=== PATIENT | male | born 1955 | race African-American/Black ===

== ENCOUNTER 2017-07-11 06:59 | Inpatient (IN) | payer MEDICARE ==
[2017-07-11 07:37] LABS: #Eosinphils 0.3 thou/uL (0.0-0.7); #Lymphocytes 1.2 thou/uL (1.20-3.40); #Monocytes 0.5 thou/uL (0.11-0.59); #Neutrophils 2.2 thou/uL (1.40-6.50); %Basophils 0.6 % (0.0-1.0); %Eosinophils 6.3 % (0.0-10.0); %Lymphocytes 28.5 % (21.0-51.0); %Monocytes 11.7 % (0.0-10.0); Hematocrit 29.3 % (42.0-52.0); Mean Platelet Volume 7.3 fL (7.4-10.4); Red Blood Cell (RBC) Count 2.58 mill/uL (4.70-6.10); White Blood Cell (WBC) Count 4.2 thou/uL (4.8-10.8)
[2017-07-11 07:52] LABS: Lactic Acid - Sepsis 1.4 mmol/L (0.5-2.2)
[2017-07-11 07:53] LABS: Anisocytosis SLIGHT = 6-15 cells (100X) (0-5/hpf); Macrocytosis MODERATE=16-30 cells (100X) (0-5/hpf); Ovalocytes SLIGHT = 2-5 cells (100X) (0-1/hpf); Polychromasia SLIGHT = 2-3 cells (100X) (0-2/hpf); Schistocytes SLIGHT = 2-5 cells (100X) (0-1/hpf); Target Cells SLIGHT = 2-5 cells (100X) (0-1/hpf)
[2017-07-11 08:00] LABS: ALT (SGPT) 8 U/L (8-55); AST (SGOT) 12 U/L (5-34); Alkaline Phosphatase 136 U/L (40-150); Anion Gap 21 mmol/L (10-20); BUN (Urea Nitrogen) 91 mg/dL (8.4-25.7); Bilirubin, Total 0.8 mg/dL (0.2-1.2); CK (CPK) 207 U/L (30-200); Calc. Creatinine Clearance 0 mL/min (70-130); Calcium 9.2 mg/dL (7.8-10.44); Carbon Dioxide 23 mmol/L (22-29); Chloride 94 mmol/L (98-107); Estimated GFR-MDRD 7; Globulin 3.7 g/dL (2.4-3.5); Lipase 12 U/L (8-78); Protein, Total 7.3 g/dL (6.0-8.3)
[2017-07-11 08:01] LABS: Troponin I 0.089 ng/mL (< 0.028)
--- NOTE | 2017-07-11 08:41 | RAD ---
CHEST ONE VIEW: History: Headed to dialysis, patient slipped to the ground and fell. Hypertension. Comparison: 04-12-17 FINDINGS: Portable upright chest demonstrates an enlarged cardiac silhouette. Pulmonary vessels are slightly pr ominent. Interstitial edema is noted. Focal alveolar infiltrate in the right lung base is noted. No p neumothorax. IMPRESSION: 1. Volume overload. 2. Right lower lobe opacity possibly due to aspiration or pneumonia. POS: [facility]
[2017-07-11] MEDS ORDERED: Vancomycin HCl 1.5 GM, Admixture Fee 1 EACH in Sodium Chloride 0.9% 250 ML 300 ML IVPB SCH (08:45)
[2017-07-11] MEDS ORDERED: Piperacillin/Tazobactam 3.375 GM, Admixture Fee 1 EACH in Sodium Chloride 0.9% 100 ML IVPB SCH (08:45)
[2017-07-11] MEDS ORDERED: Cefepime 1 GM in Sodium Chloride 0.9% 100 ML IVPB SCH (09:16)
[2017-07-11] MEDS ORDERED: Bisacodyl 10 MG SUPP PR PRN (09:16)
[2017-07-11] MEDS ORDERED: Diabetic Tussin 200 MG/10 ML UDCUP PO PRN (09:16)
[2017-07-11] MEDS ORDERED: Ondansetron ODT 4 MG TAB PO PRN (09:16)
[2017-07-11] MEDS ORDERED: Senokot 8.6 MG TAB PO PRN (09:16)
[2017-07-11] MEDS ORDERED: Nitroglycerin 0.4 MG TAB (25 Tab Bottle) PO PRN (09:16)
[2017-07-11] MEDS ORDERED: hydrALAZINE 20 MG/ML VIAL SLOW IVP PRN ×2 (09:16→11:17)
[2017-07-11] MEDS ORDERED: Loratadine 10 MG TAB PO PRN (09:16)
[2017-07-11] MEDS ORDERED: Ondansetron HCl/PF 4 MG/2 ML Vial IVP PRN (09:16)
[2017-07-11] MEDS ORDERED: cloNIDine 0.1 MG TAB PO PRN (11:17)
[2017-07-11 12:20] LABS: Troponin I 0.082 ng/mL (< 0.028)
[2017-07-11] MEDS: Acetaminophen 325 MG TAB PO PRN (14:34)
--- NOTE | 2017-07-11 15:21 | CON ---
DATE OF CONSULTATION: 07/11/2017 REASON FOR CONSULTATION: Question of possible pneumonia in a setting of HIV infection. HISTORY OF PRESENT ILLNESS: A 61-year-old patient whom I have seen in the past who has a history of longstanding HIV infection, type 2 diabetes, end-stage renal disease on hemodialysis through an AV fi stula. I had treated him in the last year for a left olecranon bursitis which took a very long time for healing. It finally completely healed. The patient has his HIV follow up performed at the [facility] and according to him, he has been on Raltegravir, Retrevalin and Zidovudine which he takes ashvenu eubanks. Reportedly, his last viral load was suppressed about a month ago and a CD4 cell count was i n the upper 300s I believe in March. 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 He I think called EMS and was brought over here. The patient denied any headaches, no visual symptoms, sore throat, odynophagia, dysphagia, no cough o r sputum production. He had a bone scan done recently, but he does not know exactly why this was don e at the [facility]. On arrival, his pulse oximetry was 90% on room air and blood pressure 140/70, pulse 92, temperature 98.9. On arrival to the emergency room he appeared nontoxic, alert and oriented. The e xam was remarkable for clear lungs except for very faint inspiratory crackles at the bases and some w heezes. On 2 liters, nasal cannula. His O2 sats were 96%. Cardiovascular exam was normal. Abdomen was nontender. He has a left AK amputation and other extremities were moving well. Initial laboratory with white cell count 4.2, hemoglobin 9.7, MCV 114, platelets 163 with a normal di fferential except for mild monocytosis, sodium 133, potassium 5.2, carbon dioxide 23. CK is 207, tra nsaminases normal, alkaline phosphatase normal. Troponin 0.089. BNP 657, albumin 3.6, and globulin 3.7. We have no blood cultures or other types of microbiology specimen submitted yet. There is a ch est x-ray from this admission which shows enlarged cardiac silhouette, engorged pulmonary vessels, pr ominent interstitial edema, no focal infiltrate, right lung base. Currently, he appears in no distre ss. He is being dialyzed. REVIEW OF SYSTEMS: The 10-point review of system as above. PAST MEDICAL HISTORY: Type 2 diabetes, end-stage renal disease, HIV infection on adequate ART. Supp ressed viral load, left AKA, diverticulosis, hernia repair. 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 MEDICATIONS: Currently receiving azithromycin, cefepime, folic acid, hydralazine, ondansetron. ALLERGIES: PAXIL. FAMILY HISTORY: Noncontributory. SOCIAL HISTORY: Former smoker, lives by himself in [place]. PHYSICAL EXAMINATION: VITAL SIGNS: Temperature 98.7, blood pressure 160/70, pulse 82, respirations 18. SKIN: Shows no areas of skin breakdown. The left upper extremity AV fistula is accessed. No lympha denopathy. HEENT: Mild conjunctival hyperemia. The oral cavity with still quite a few teeth in place. Moist m ucosa, no lesions. NECK: No jugular venous distention. LUNGS: With symmetric air entry, no wheezing or crackles noticed. CARDIAC: S1, S2, regular rate. Soft aortic murmur. ABDOMEN: Soft. Not distended or tender. No ascites. No bladder distention. EXTREMITIES: No joint inflammatory activity noted. Pulses 1+ right dorsalis pedis. Cognitive funct ion appears to be intact. Labs have been reviewed above. ASSESSMENT: 1. End-stage renal disease secondary to type 2 diabetes mellitus on hemodialysis through an AV fistu la. 2. Longstanding human immunodeficiency virus infection with adequate control viremia and CD4 cell co unt. The patient is followed at the [facility] on antiretroviral therapy. 3. Acute onset of generalized nonspecific weakness. 4. Abnormal findings on chest x-ray. DISCUSSION: The chest x-ray findings are more likely to represent volume overload with edema rather than an infectious process. Pending on clinical progress I probably would eventually discontinue ant imicrobials tomorrow or the day after. Could check a calcitonin, but I believe that the pretest like lihood of having pneumonia is pretty low. Regarding the possibility of an opportunistic process, he has always taking his antiretroviral therapy quite well and a very recent CD4 cell count[facility] was adequate so I think that is not likely.
[2017-07-11 15:39] LABS: Troponin I 0.093 ng/mL (< 0.028)
[2017-07-11 16:24] VITALS: BMI 28.8
[2017-07-11] MEDS: Cefepime 1 GM, Admixture Fee 1 EACH in Sterile Water 10 ML SLOW IVP SCH (16:32)
[2017-07-11] MEDS: Azithromycin 500 MG, Admixture Fee 1 EACH in Sodium Chloride 0.9% 250 ML 250 ML IVPB SCH (16:33)
--- NOTE | 2017-07-11 18:26 | PDOC.EVN ---
Event Note - Event Note Event Note: Patient seen and examined. Note dictated. Full code. DPOA - family. CAP - suspected Pneumococcal
[2017-07-11] MEDS ORDERED: PROVENTIL INHALER 6.7 G (200 INHALATIONS) INH PRN (18:45)
[2017-07-11] MEDS: Ipratropium Bromide 2.5 ml Neb NEB SCH (19:24)
--- NOTE | 2017-07-11 19:24 | HP ---
DATE OF ADMISSION: 07/11/2017 PRIMARY CARE PHYSICIAN: [facility]. PRIMARY EFFICIENCY MANAGER: Dr. Barrera. CHIEF COMPLAINT: Generalized weakness. HISTORY OF PRESENT ILLNESS: The patient is a 61-year-old male with end-stage renal disease on hemodialysis, HIV currently on HAART, hypertension and diabetes mellitus type 2, presented to the emergency room with above complaints. The patient has been feeling generally weak over the last 2-3 days. This morning he was unable to get into his truck to go for hemodialysis. He also had bone scan yesterday for unclear reason. He denies any chest pain, palpitations, lightheadedness, dizziness, or stroke-like symptoms. No fever or chills reported. He has intermittent cough; however, denies any production. No recent immobilization, travel, palpitations or syncope reported. In the emergency room, initial vital signs showed temperature 98.9, respiration 19, pulse rate of 92, blood pressure of 147/74 with O2 saturation 96% on 2 liters nasal cannula. His EKG showed sinus rhythm with first degree AV block. Chest x-ray showed pulmonary vascular congestion with questionable infiltrate at the right lower lung. He received vancomycin, Zosyn and aspirin in the emergency room. PAST MEDICAL HISTORY: 1. End-stage renal disease on hemodialysis Monday, and Monday. 2. Negative cardiac catheterization earlier this year. 3. Human immunodeficiency virus on HAART. 4. History of diabetes mellitus type 2, diet controlled. 5. Anemia secondary to renal insufficiency. 6. Obstructive sleep apnea, on BiPAP. 7. Chronic respiratory failure on home O2. 8. Chronic obstructive pulmonary disease. 9. Diverticulosis. 10. Left above knee amputation. PAST SURGICAL HISTORY: 1. Dialysis access. 2. Left above knee amputation. 3. Cholecystectomy in 2016. 4. Abdominal hernia repair. 5. Hemorrhoidectomy. 6. Left total knee replacement complicated with Staph infection requiring left above knee amputation. 7. Tonsillectomy with you uvulectomy. ALLERGIES: The patient is allergic to PAXIL. CURRENT HOME MEDICATIONS: The patient does not remember any of his home medications. We will try to obtain accurate medication lists from the pharmacy. SOCIAL HISTORY: The patient currently lives at home with his family. No smoking, alcohol or drug use. He is a former drug abuser and has abused cocaine in the past. He is also a former smoker and quit smoking in 1990. FAMILY HISTORY: Multiple family members with hypertension and diabetes. REVIEW OF SYSTEMS: The following complete review of systems was negative, unless otherwise mentioned in the HPI or below: Constitutional: Weight loss or gain, ability to conduct usual activities. Skin: Rash, itching. Eyes: Double vision, pain. ENT/Mouth: Nose bleeding, neck stiffness, pain, tenderness. Cardiovascular: Palpitations, dyspnea on exertion, orthopnea. Respiratory: Shortness of breath, wheezing, cough, hemoptysis, fever or night sweats. Gastrointestinal: Poor appetite, abdominal pain, heartburn, nausea, vomiting, constipation, or diarrhea. Genitourinary: Urgency, frequency, dysuria, nocturia. Musculoskeletal: Pain, swelling. Neurologic/Psychiatric: Anxiety, depression. Allergy/Immunologic: Skin rash, bleeding tendency. PHYSICAL EXAMINATION: VITAL SIGNS: As discussed above. His last vital signs showed temperature 98.9 , respirations 19, pulse 92, blood pressure 147/74 with O2 saturation 96% on 2 liters nasal cannula. GENERAL: A 61-year-old male in mild respiratory distress, undergoing hemodialysis. HEENT: Atraumatic, normocephalic, sclerae are anicteric. Moist mucous membrane , no oral lesion. NECK: Supple, no JVD appreciated. No carotid bruit. LUNGS: Clear to auscultation bilaterally. Bibasilar crackles with scattered rhonchi CARDIOVASCULAR: Heart S1, S2 present. Regular rate and rhythm. No rubs, gallops or murmurs appreciated. ABDOMEN: Soft, nontender, bowel sounds present, no rebound, guarding, no costovertebral angle tenderness. EXTREMITIES: The patient is status post left [id number] amputation. No edema or calf tenderness noted. SKIN: Warm and dry. LYMPH NODES: No palpable lymph nodes in the neck. PERIPHERAL VASCULAR: Radial pulses palpable bilaterally. MUSCULOSKELETAL: No joint swelling or tenderness. LABORATORY FINDINGS: CBC showed WBC 4.2 with hemoglobin 9.7, hematocrit 29.3, platelet 163. Troponins in indeterminate range at 0.089. BNP 657, BUN 91, creatinine 9.22 with potassium 5.2, sodium 133. Chest x-ray by my review as discussed above. EKG by my review as discussed above. IMPRESSION: 1. Health care associated pneumonia. 2. Generalized weakness, multifactorial. 3. Volume overload. 4. History of human immunodeficiency virus, currently on HAART. 5. Indeterminate troponins, probably secondary to demand ischemia. Cardiac catheterization in March of this year showed normal coronaries. 6. Peripheral neuropathy. 7. Hyperlipidemia. 8. Diverticulosis. 9. Hyperkalemia. 10. Diabetes mellitus type 2, diet control. 11. Metabolic acidosis secondary to missed hemodialysis. 12. Chronic anemia secondary to renal insufficiency. PLAN: 1. The patient will be monitored on the telemetry unit. He is currently undergoing hemodialysis. We will start the patient on cefepime and azithromycin. I discussed with Dr. Morris who also recommended, respiratory viral panel. We will try to confirm home medications. We will start him on home CPAP. 2. Plan of care was discussed with the patient. He stated understanding. 3. The patient will require 2-3 days for stabilization. MTDD
[2017-07-11] MEDS: Raltegravir Potassium 400 MG TAB PO SCH (20:06)
[2017-07-11] MEDS: Nortriptyline HCl 25 MG CAP PO SCH (20:06)
[2017-07-11] MEDS: Docusate 100 MG CAP PO SCH (20:06)
[2017-07-11] MEDS: hydrALAZINE 25 MG TAB PO SCH (20:06)
[2017-07-11] MEDS: Atorvastatin Calcium 10 MG TAB PO SCH (20:07)
[2017-07-11] MEDS: Terazosin HCl 5 MG CAP PO SCH (20:07)
[2017-07-11] MEDS: Minoxidil 10 MG TAB PO SCH (20:07)
[2017-07-11] MEDS: Heparin 5,000 UNITS/ML VIAL SC SCH (20:07)
[2017-07-11] MEDS ORDERED: Famotidine 20 MG TAB PO SCH (21:00)
[2017-07-12] MEDS: Ipratropium Bromide 2.5 ml Neb NEB SCH ×5 (00:29→23:59)
[2017-07-12] MEDS ORDERED: Gabapentin 300 MG CAP PO SCH (03:00)
[2017-07-12 05:13] LABS: #Basophils 0.1 thou/uL (0.0-0.2); #Eosinphils 0.3 thou/uL (0.0-0.7); #Lymphocytes 0.9 thou/uL (1.20-3.40); #Monocytes 0.6 thou/uL (0.11-0.59); %Basophils 1.9 % (0.0-1.0); %Eosinophils 6.6 % (0.0-10.0); %Lymphocytes 24.5 % (21.0-51.0); %Monocytes 14.9 % (0.0-10.0); Hematocrit 26.8 % (42.0-52.0); Mean Platelet Volume 7.4 fL (7.4-10.4); Red Blood Cell (RBC) Count 2.36 mill/uL (4.70-6.10); White Blood Cell (WBC) Count 3.9 thou/uL (4.8-10.8)
[2017-07-12 05:39] LABS: ALT (SGPT) Less than 7 U/L (8-55); AST (SGOT) 11 U/L (5-34); Alkaline Phosphatase 132 U/L (40-150); Anion Gap 12 mmol/L (10-20); BUN (Urea Nitrogen) 43 mg/dL (8.4-25.7); Bilirubin, Total 0.7 mg/dL (0.2-1.2); Calc. Creatinine Clearance 21 mL/min (70-130); Calcium 9.1 mg/dL (7.8-10.44); Carbon Dioxide 30 mmol/L (22-29); Chloride 98 mmol/L (98-107); Estimated GFR-MDRD 13; Globulin 3.6 g/dL (2.4-3.5)
--- NOTE | 2017-07-12 07:26 | CON ---
DATE OF CONSULTATION: 07/11/2017 CONSULTING PHYSICIAN: Bruce Archuleta M.D. REQUESTING PHYSICIAN: Dr. Mills. REASON FOR CONSULTATION: The need for maintenance hemodialysis. IMPRESSION: 1. End-stage renal disease, hemodialysis dependent, due for dialysis today. 2. Generalized weakness, query cause. 3. Mild hyperkalemia in the context of . PLAN: 1. The patient to undergo hemodialysis today with ultrafiltration as tolerated by hemodynamics. 2. Further management to be dependent on the clinical course. HISTORY OF PRESENT ILLNESS: History is that of a 61-year-old gentleman with end-stage renal disease, hemodialysis dependent, with multiple comorbidities including HIV, who suddenly became very weak and lethargic. The patient felt very weak for the past 2-3 days and could not get to his dialysis , patient presented to the ER. PAST MEDICAL HISTORY: Significant for, 1. End-stage renal disease, hemodialysis dependent. 2. HIV infection. 3. Obstructive sleep apnea. 4. Anemia. 5. Chronic respiratory failure. 6. COPD. 7. Diverticulosis. MEDICATIONS: Have been reviewed and as documented on xzoops. ALLERGIES: To PAXIL. SOCIAL HISTORY: Denies smoking, alcohol, or illicit drug use. Remote history of cocaine usage as we ll as tobacco. FAMILY HISTORY: Not significantly related to the presenting illness. REVIEW OF SYSTEMS: As documented in the body of the history. All the other systems were reviewed an d were found not to be significantly related to the presenting illness. PHYSICAL EXAMINATION: The patient will be noted with the following vital signs: VITAL SIGNS: Afebrile with temperature 99.3, pulse 84, respiratory rate of 20, blood pressure 124/58 . HEENT EXAMINATION: Unremarkable. CARDIOVASCULAR SYSTEM: First and second heart sounds were heard. RESPIRATORY SYSTEM: Clear to auscultation. DIGESTIVE SYSTEM: . SUMMARY: A 61-year-old gentleman with end-stage renal disease, hemodialysis dependent, who presented here with history of lethargy. Thank you for this consultation. We will follow with you.
[2017-07-12] MEDS: Sevelamer Carbonate 800 MG TAB PO SCH ×3 (08:00→17:05)
[2017-07-12] MEDS ORDERED: Aspirin 325 MG TAB PO SCH (09:00)
[2017-07-12] MEDS ORDERED: Folic Acid 1 MG TAB PO SCH (09:00)
[2017-07-12] MEDS: Raltegravir Potassium 400 MG TAB PO SCH ×2 (09:41→20:26)
[2017-07-12] MEDS: Amlodipine 5 MG TAB PO SCH (09:42)
[2017-07-12] MEDS: Cyanocobalamin (Vitamin B-12) 1,000 MCG TAB PO SCH (09:42)
[2017-07-12] MEDS: hydrALAZINE 25 MG TAB PO SCH ×3 (09:44→20:26)
[2017-07-12] MEDS: Docusate 100 MG CAP PO SCH ×2 (09:46→20:26)
[2017-07-12] MEDS: Heparin 5,000 UNITS/ML VIAL SC SCH ×2 (09:47→20:24)
[2017-07-12] MEDS: Folic Acid 1 MG TAB PO SCH (09:47)
[2017-07-12] MEDS: Acetaminophen 325 MG TAB PO PRN (09:54)
--- NOTE | 2017-07-12 13:15 | PDOC.PN ---
- Subjective Encounter Start Date: 07/12/17 Encounter Start Time: 13:14 Patient seen and examined. SOB improving. Some cough - nonprod. No overnight events. - Objective Resuscitation Status: Resuscitation Status FULL:Full Resuscitation MAR Reviewed: Yes Vital Signs & Weight: Vital Signs (12 hours) Temp Pulse Resp BP Pulse Ox 07/12/17 09:44 84 07/12/17 09:42 84 07/12/17 08:40 98.6 F 84 20 134/63 93 L 07/12/17 08:17 84 16 93 L 07/12/17 08:00 98.6 F 84 20 93 L 07/12/17 03:45 98.5 F 84 18 121/60 93 L Weight Weight 228 lb I&O: 07/11/17 07/12/17 07/13/17 06:59 06:59 06:59 Intake Total 120 Output Total 5000 Balance -4880 Result Diagrams: 07/12/17 04:12 07/12/17 04:12 Additional Labs: Resp Viral Panel - Negative EKG Reviewed by me: Yes (Tele SR) Phys Exam - Physical Examination Constitutional: NAD Respiratory: no wheezing, no rhonchi Scat rales at bases Cardiovascular: RRR, no rub no heaves/pulsation Gastrointestinal: soft, non-tender, no distention, positive bowel sounds Musculoskeletal: edema present RLE Edema improving Neurological: non-focal, normal sensation, moves all 4 limbs Psychiatric: normal affect, A&O x 3 Dx/Plan - Plan cont current plan of care, continue antibiotics, PT/OT, DVT proph w/heparin IMPRESSION: 1. HCA pneumonia. ?Pneumococcal - on Atbx 2. Generalized weakness, multifactorial. 3. Volume overload. improved 4. History of human immunodeficiency virus, currently on HAART. 5. Indeterminate troponins, probably secondary to demand ischemia. Cardiac catheterization in March of this year showed normal coronaries. 6. Peripheral neuropathy. 7. Hyperlipidemia. 8. Diverticulosis. 9. Hyperkalemia - resolved 10. Diabetes mellitus type 2, diet controlled 11. Metabolic acidosis. 12. Chronic anemia secondary to renal insufficiency. PLAN: * Cont current Atbx * ID/Nephro following * Cont current home meds as below * Lisinopril on hold - BP stable * Dialysis in AM * Cont to monitor * CXR in AM Review of Systems - Review of Systems Constitutional: negative: Fever, Chills, Sweats, Weakness, Malaise Cardiovascular: negative: Chest Pain, Palpitations, Orthopnea, Paroxysmal Noc. Dyspnea, Edema, Light Headedness Gastrointestinal: negative: Nausea, Vomiting, Abdominal Pain, Diarrhea, Constipation, Melena, Hematochezia - Medications/Allergies Allergies/Adverse Reactions: Allergies Allergy/AdvReac Type Severity Reaction Status Date / Time clindamycin Allergy Intermediate CAUSED Verified 07/11/17 16:00 HYPERKALEMIA paroxetine HCl [From Paxil] Allergy Intermediate PT STATES Verified 07/11/17 16: 00 IT MADE HIM VERY CRAZY IN HEAD ciprofloxacin Allergy Verified 07/11/17 16:00 Medications: Current Medications Acetaminophen (Tylenol) 650 mg PO Q4H PRN PRN Reason: Headache/Fever or Pain Last Admin: 07/12/17 09:54 Dose: 650 mg Acetaminophen/Codeine Phosphate (Tylenol #3) 1 tab PO Q4H PRN PRN Reason: Moderate Pain (4-6) Albuterol Sulfate (Proventil Hfa) 2 puff INH Q4H PRN PRN Reason: SOB or Anxiety Albuterol/Ipratropium (Duoneb) 3 ml NEB [id number] PRN PRN Reason: SOB &/or Wheezing Amlodipine Besylate (Norvasc) 10 mg PO DAILY [facility] Last Admin: 07/12/17 09:42 Dose: 10 mg Atorvastatin Calcium (Lipitor) 10 mg PO HS [facility] Last Admin: 07/11/17 20:07 Dose: 10 mg Bisacodyl (Dulcolax) 10 mg RI Q24H PRN PRN Reason: Constipation Clonidine (Catapres) 0.1 mg PO Q4H PRN PRN Reason: Systolic BP > 180 Cyanocobalamin (Vitamin B-12) 1,000 mcg PO DAILY [facility] Last Admin: 07/12/17 09:42 Dose: 1,000 mcg Docusate Sodium (Colace) 100 mg PO BID [facility] Last Admin: 07/12/17 09:46 Dose: 100 mg Folic Acid (Folvite) 1 mg PO DAILY [facility] Last Admin: 07/12/17 09:47 Dose: Not Given Gabapentin (Neurontin) 300 mg PO BID [facility] Guaifenesin (Robitussin Sf) 200 mg PO Q4H PRN PRN Reason: Cough Heparin Sodium (Porcine) (Heparin) 5,000 units SC BID [facility] Last Admin: 07/12/17 09:47 Dose: 5,000 units Hydralazine HCl (Apresoline) 10 mg SLOW IVP Q4H PRN PRN Reason: SBP Greater Than 180 Hydralazine HCl (Apresoline) 25 mg PO TID [facility] Last Admin: 07/12/17 09:44 Dose: 25 mg Azithromycin 500 mg/Miscellaneous Medication 1 each/ Sodium Chloride 250 mls @ 250 mls/hr IVPB 1600 [facility] Cefepime HCl 1 gm/Miscellaneous Medication 1 each/ Sterile Water 10 mls @ 120 mls/hr SLOW IVP 1600 [facility] Ipratropium Jarrell (Atrovent) 2.5 ml NEB [id number] [facility] Last Admin: 07/12/17 08:17 Dose: 2.5 ml Loratadine (Claritin) 10 mg PO DAILYPRN PRN PRN Reason: Sinus Symptoms Minoxidil (Minoxidil) 20 mg PO [facility] Last Admin: 07/11/17 20:07 Dose: 20 mg Nitroglycerin (Nitrostat) 0.4 mg PO Q5MIN PRN PRN Reason: Chest Pain Nortriptyline HCl (Pamelor) 25 mg PO [facility] Last Admin: 07/11/17 20:06 Dose: 25 mg Ondansetron HCl (Zofran Odt) 4 mg PO Q6H PRN PRN Reason: Nausea/Vomiting Ondansetron HCl (Zofran) 4 mg IVP Q6H PRN PRN Reason: Nausea/Vomiting Pantoprazole Sodium (Protonix) 40 mg PO [facility] Raltegravir (Isentress) 400 mg PO BID [facility] Last Admin: 07/12/17 09:41 Dose: 400 mg Senna (Senokot) 2 tab PO HSPRN PRN PRN Reason: Constipation Sevelamer Carbonate (Renvela) 2,400 mg PO TID-[facility] Last Admin: 07/12/17 08:00 Dose: 2,400 mg Sodium Chloride (Flush - Normal Saline) 10 ml IVF PRN PRN PRN Reason: Saline Flush Terazosin HCl (Hytrin) 10 mg PO [facility] Last Admin: 07/11/17 20:07 Dose: 10 mg Zidovudine (Retrovir) 100 mg PO TID [facility] Last Admin: 07/12/17 09:41 Dose: 100 mg
[2017-07-12] MEDS: Acetaminophen/Codeine 30-300mg Tablet PO PRN (15:11)
[2017-07-12] MEDS ORDERED: Cefepime 1 GM, Admixture Fee 1 EACH in Sterile Water 10 ML SLOW IVP SCH (16:00)
[2017-07-12] MEDS ORDERED: Azithromycin 500 MG, Admixture Fee 1 EACH in Sodium Chloride 0.9% 250 ML 250 ML IVPB SCH (16:00)
[2017-07-12] MEDS: Azithromycin 500 MG, Admixture Fee 1 EACH in Sodium Chloride 0.9% 250 ML 250 ML IVPB SCH (17:09)
[2017-07-12] MEDS: Cefepime 1 GM, Admixture Fee 1 EACH in Sterile Water 10 ML SLOW IVP SCH (17:10)
[2017-07-12] MEDS: Terazosin HCl 5 MG CAP PO SCH (20:25)
[2017-07-12] MEDS: Nortriptyline HCl 25 MG CAP PO SCH (20:25)
[2017-07-12] MEDS: Gabapentin 300 MG CAP PO SCH (20:26)
[2017-07-12] MEDS: Minoxidil 10 MG TAB PO SCH (20:26)
[2017-07-12] MEDS: Atorvastatin Calcium 10 MG TAB PO SCH (20:26)
--- NOTE | 2017-07-12 23:33 | PRG ---
DATE OF SERVICE: 07/12/2017 SUBJECTIVE: The patient was seen and examined with no new complaint, noted with the following vital signs. PHYSICAL EXAMINATION: VITAL SIGNS: Afebrile with temperature 98.2, pulse 80, respiratory rate of 20, O2 sat of 95% on 2 li ters, blood pressure 128/61. HEENT AND NECK: Unremarkable. Moist oral mucosa. Neck was supple. No conjunctival injection. No icterus. CARDIOVASCULAR: First and second heart sounds were heard. RESPIRATORY: Clear to auscultation. DIGESTIVE: Revealed a benign abdomen with positive bowel sounds. EXTREMITIES: No peripheral edema. SKIN: No new gross rash. LYMPHATICS: No peripheral lymphadenopathy. IMPRESSION: 1. End-stage renal disease on hemodialysis. 2. Weakness and vertigo. PLAN: 1. The patient to undergo hemodialysis tomorrow in accordance with his usual schedule. 2. Further management to be dependent on the clinical course.
[2017-07-13] MEDS: Ipratropium Bromide 2.5 ml Neb NEB SCH ×3 (07:51→19:14)
[2017-07-13] MEDS: Sevelamer Carbonate 800 MG TAB PO SCH ×4 (08:06→22:49)
[2017-07-13] MEDS: Heparin 5,000 UNITS/ML VIAL SC SCH (08:07)
[2017-07-13] MEDS: Raltegravir Potassium 400 MG TAB PO SCH ×2 (08:07→20:22)
[2017-07-13] MEDS: Cyanocobalamin (Vitamin B-12) 1,000 MCG TAB PO SCH (08:07)
[2017-07-13] MEDS: Gabapentin 300 MG CAP PO SCH ×2 (08:07→20:23)
[2017-07-13] MEDS: Folic Acid 1 MG TAB PO SCH (08:07)
[2017-07-13] MEDS: Amlodipine 5 MG TAB PO SCH (08:07)
[2017-07-13] MEDS: Docusate 100 MG CAP PO SCH (08:07)
--- NOTE | 2017-07-13 08:40 | RAD ---
1 VIEW CHEST: Date: 07/13/17 COMPARISON: 07/11/17. HISTORY: Dialysis patient. Hypertension. Pneumonia follow-up. FINDINGS: Worsening interstitial and alveolar opacities throughout the lung parenchyma. Stable cardiac silhouet te. Small left-sided pleural effusion is noted. No pneumothorax. IMPRESSION: Worsening interstitial and alveolar opacities. POS: [facility]
[2017-07-13] MEDS: Acetaminophen/Codeine 30-300mg Tablet PO PRN ×2 (09:45→20:04)
[2017-07-13] MEDS: hydrALAZINE 25 MG TAB PO SCH ×3 (11:34→20:22)
[2017-07-13] MEDS ORDERED: Chloraseptic Spray 180 ml Bottle PO PRN (11:58)
[2017-07-13] MEDS ORDERED: Sodium Chloride 0.65% Nasal 44 ML BOT EA NARE PRN (11:58)
[2017-07-13] MEDS ORDERED: Cepastat Lozenges 1 LOZ PO PRN (11:59)
[2017-07-13] MEDS ORDERED: Senokot S 8.6-50 MG TAB PO SCH (12:00)
[2017-07-13] MEDS ORDERED: Fluticasone Propionate Nasal Spray 16 gm Bottle NASAL SCH (12:00)
--- NOTE | 2017-07-13 17:54 | PDOC.PN ---
- Subjective Encounter Start Date: 07/13/17 Encounter Start Time: 11:30 Patient seen and examined. No new complaints. Overnight events noted. Did not tolerate hospital CPAP. - Objective Resuscitation Status: Resuscitation Status FULL:Full Resuscitation MAR Reviewed: Yes Vital Signs & Weight: Vital Signs (12 hours) Temp Pulse Pulse Pulse Resp BP BP 07/13/17 12:44 75 16 07/13/17 11:35 97.6 F 82 20 07/13/17 09:52 86 84 123/58 L 134/67 07/13/17 08:00 98.0 F 86 18 07/13/17 07:51 79 16 BP Pulse Ox Pulse Ox Pulse Ox Pulse Ox 07/13/17 12:44 96 07/13/17 11:35 146/70 H 92 L 07/13/17 09:52 79 L 88 L 86 L 07/13/17 08:00 132/65 93 L 07/13/17 07:51 96 Weight Weight 229 lb 12.8 oz I&O: 07/12/17 07/13/17 07/14/17 06:59 06:59 06:59 Intake Total 120 250 Output Total 5000 0 Balance -4880 250 Result Diagrams: 07/12/17 04:12 07/12/17 04:12 Radiology Reviewed by me: Yes (CXR - bilateral infiltrate) EKG Reviewed by me: Yes (Tele SR) Phys Exam - Physical Examination Constitutional: NAD Respiratory: no wheezing, no rhonchi Bibasilar rales, Symmetrical Cardiovascular: RRR, no significant murmur, no rub no heaves/pulsations Gastrointestinal: soft, non-tender, no distention, positive bowel sounds Neurological: non-focal, normal sensation, moves all 4 limbs Psychiatric: normal affect, A&O x 3 Dx/Plan - Plan IMPRESSION: 1. HCA pneumonia. ?Pneumococcal - on Cefepime/Azithromycin 2. Generalized weakness, multifactorial. 3. Volume overload. improved after dialysis 4. History of human immunodeficiency virus, currently on HAART. 5. Indeterminate troponins, probably secondary to demand ischemia. Normal coronaries on last Cath 6. Epistaxis - resolved. 7. Hyperlipidemia. 8. Diverticulosis. 9. Hyperkalemia - resolved 10. Diabetes mellitus type 2, diet controlled 11. Metabolic acidosis. 12. Chronic anemia secondary to renal insufficiency. 13. Peripheral neuropathy. 14. Constipation PLAN: * dialysis per nephrology * Cont Cefepime/Azithromcyin * Cont current home meds as below * Cont to monitor * DC SQ Heparin due to Epistaxis * Add Saline nasal spray with O2 humidification * Cont Senokot S * CXR - worsening - I d/w Dr Morris * Cont HAART Review of Systems - Review of Systems Constitutional: negative: Fever, Chills, Sweats, Weakness, Malaise Respiratory: negative: Cough, Dry, Shortness of Breath, Hemoptysis, SOB with Excertion, Pleuritic Pain, Sputum, Wheezing Cardiovascular: negative: Chest Pain, Palpitations, Orthopnea, Paroxysmal Noc. Dyspnea, Edema, Light Headedness - Medications/Allergies Allergies/Adverse Reactions: Allergies Allergy/AdvReac Type Severity Reaction Status Date / Time clindamycin Allergy Intermediate CAUSED Verified 07/11/17 16:00 HYPERKALEMIA paroxetine HCl [From Paxil] Allergy Intermediate PT STATES Verified 07/11/17 16: 00 IT MADE HIM VERY CRAZY IN HEAD ciprofloxacin Allergy Verified 07/11/17 16:00 Medications: Current Medications Acetaminophen (Tylenol) 650 mg PO Q4H PRN PRN Reason: Headache/Fever or Pain Last Admin: 07/12/17 09:54 Dose: 650 mg Acetaminophen/Codeine Phosphate (Tylenol #3) 1 tab PO Q4H PRN PRN Reason: Moderate Pain (4-6) Last Admin: 07/13/17 09:45 Dose: 1 tab Albuterol Sulfate (Proventil Hfa) 2 puff INH Q4H PRN PRN Reason: SOB or Anxiety Albuterol/Ipratropium (Duoneb) 3 ml NEB [id number] PRN PRN Reason: SOB &/or Wheezing Amlodipine Besylate (Norvasc) 10 mg PO DAILY [facility] Last Admin: 07/13/17 08:07 Dose: 10 mg Atorvastatin Calcium (Lipitor) 10 mg PO HS [facility] Last Admin: 07/12/17 20:26 Dose: 10 mg Bisacodyl (Dulcolax) 10 mg OR Q24H PRN PRN Reason: Constipation Clonidine (Catapres) 0.1 mg PO Q4H PRN PRN Reason: Systolic BP > 180 Cyanocobalamin (Vitamin B-12) 1,000 mcg PO DAILY [facility] Last Admin: 07/13/17 08:07 Dose: 1,000 mcg Etravirine (Intelence) 200 mg PO BID-[facility] Fluticasone Propionate (Flonase Nasal [place]) 0 gm NASAL Q24HR [facility] Folic Acid (Folvite) 1 mg PO DAILY [facility] Last Admin: 07/13/17 08:07 Dose: 1 mg Gabapentin (Neurontin) 300 mg PO BID [facility] Last Admin: 07/13/17 08:07 Dose: 300 mg Guaifenesin (Robitussin Sf) 200 mg PO Q4H PRN PRN Reason: Cough Hydralazine HCl (Apresoline) 10 mg SLOW IVP Q4H PRN PRN Reason: SBP Greater Than 180 Hydralazine HCl (Apresoline) 25 mg PO TID [facility] Last Admin: 07/13/17 11:34 Dose: Not Given Azithromycin 500 mg/Miscellaneous Medication 1 each/ Sodium Chloride 250 mls @ 250 mls/hr IVPB 1800 [facility] Cefepime HCl 1 gm/Miscellaneous Medication 1 each/ Sterile Water 10 mls @ 120 mls/hr SLOW IVP 1800 [facility] Ipratropium [place] (Atrovent) 2.5 ml NEB [id number] [facility] Last Admin: 07/13/17 12:44 Dose: 2.5 ml Loratadine (Claritin) 10 mg PO DAILYPRN PRN PRN Reason: Sinus Symptoms Minoxidil (Minoxidil) 20 mg PO [facility] Last Admin: 07/12/17 20:26 Dose: 20 mg Nitroglycerin (Nitrostat) 0.4 mg PO Q5MIN PRN PRN Reason: Chest Pain Nortriptyline HCl (Pamelor) 25 mg PO [facility] Last Admin: 07/12/17 20:25 Dose: 25 mg Ondansetron HCl (Zofran Odt) 4 mg PO Q6H PRN PRN Reason: Nausea/Vomiting Ondansetron HCl (Zofran) 4 mg IVP Q6H PRN PRN Reason: Nausea/Vomiting Pantoprazole Sodium (Protonix) 40 mg PO [facility] Last Admin: 07/12/17 20:25 Dose: 40 mg Phenol (Chloraseptic [place] 180 Ml Bot) 0 ml PO BIDPRN PRN PRN Reason: Sore Throat Raltegravir (Isentress) 400 mg PO BID [facility] Last Admin: 07/13/17 08:07 Dose: 400 mg Senna (Senokot) 2 tab PO HSPRN PRN PRN Reason: Constipation Senna/Docusate Sodium (Senokot S) 1 tab PO BID [facility] Sevelamer Carbonate (Renvela) 2,400 mg PO TID-[facility] Last Admin: 07/13/17 13:57 Dose: Not Given Sodium Chloride (Flush - Normal Saline) 10 ml IVF PRN PRN PRN Reason: Saline Flush Sodium Chloride (Hyder Nasal [place] 0.65%) 0 ml EA NARE TID PRN PRN Reason: Nasal Congestion Terazosin HCl (Hytrin) 10 mg PO [facility] Last Admin: 07/12/17 20:25 Dose: 10 mg Throat Lozenges (Cepastat Lozenges) 1 deyvi PO Q2H PRN PRN Reason: Sore Throat Zidovudine (Retrovir) 100 mg PO TID [facility] Last Admin: 07/13/17 08:07 Dose: 100 mg
[2017-07-13] MEDS ORDERED: Cefepime 1 GM, Admixture Fee 1 EACH in Sterile Water 10 ML SLOW IVP SCH (18:00)
[2017-07-13] MEDS ORDERED: Azithromycin 500 MG, Admixture Fee 1 EACH in Sodium Chloride 0.9% 250 ML 250 ML IVPB SCH (18:00)
--- NOTE | 2017-07-13 18:17 | PRG ---
DATE OF SERVICE: 07/13/2017 SUBJECTIVE: Sitting up in bed and feeling much better. Mild cough, no dyspnea, no chest pain, no ab dominal pain. OBJECTIVE: VITAL SIGNS: T-max 98.2, blood pressure 140/70, pulse 75, respirations 16, O2 sat 93% to 92%. GENERAL: Awake and alert. LUNGS: With faint basilar crackles, particularly on the left side. CARDIOVASCULAR: S1, S2, regular rate. ABDOMEN: Soft, not distended. NEUROLOGIC: Unchanged. LABORATORY: Showed white cell count 3.9, hemoglobin 8.8, platelets 162, 52% neutrophils, 24% lymphoc ytes. Sodium 136, creatinine 5.48. ASSESSMENT AND DISCUSSION: 1. End-stage renal disease secondary to type 2 diabetes, on hemodialysis through AV fistula. 2. Longstanding human immunodeficiency virus infection with adequate viremia controlled and CD4 cell count. 3. Acute onset of generalized nonspecific weakness, particularly in the upper extremities that is wh at he complains about mostly and abnormalities on x-ray. Again, the abnormalities on x-ray more like ly represent fluid shifts, then inflammatory process. He is still on azithromycin and cefepime proba casey can be discontinued at this point in time.
--- NOTE | 2017-07-13 18:43 | PRG ---
DATE OF SERVICE: 07/13/2017 SUBJECTIVE: He has been dialyzed at this time. He had a little bit of problems overnight because of what he describes as stopped up nose with some epistaxis. No cough, no chest pain, no abdominal elsa n, no diarrhea. OBJECTIVE: VITAL SIGNS: T-max 98.0, blood pressure 140/70, pulse 75, respirations 16, O2 sat 96% on 2 liters. GENERAL: Awake, alert, oriented and in no distress. Little bit of bleeding at the dialysis access s ite. HEENT: Nasal passages are patent. Oral cavity is unchanged. LUNGS: Symmetric. Air entry, fairly clear. HEART: S1, S2, regular rate with soft aortic murmur. ABDOMEN: Soft, not distended or tender. LABORATORY DATA: His white cell count 3.9, hemoglobin 8.8, platelets 162, sodium 136, creatinine 5.4 8. Liver profile normal. Albumin 2.6. Repeat chest x-ray showed some increase in the interstitial opacities noted before. ASSESSMENT AND DISCUSSION: End-stage renal disease secondary to type 2 diabetes mellitus, longstandi ng HIV infection with adequate viremia control, CD4 cell count and nonspecific weakness and abnormal findings on chest x-ray. The findings on chest x-ray are fairly stable compared with admission and th ere are some difference in technique and I am not concerned about it at this point, I still believe t hat there is not enough evidence to suggest an infectious process going on. We will check his CD4 ju st to verify that, although he did have a recent CD4 counts were submitted.
[2017-07-13] MEDS: Senokot S 8.6-50 MG TAB PO SCH (20:21)
[2017-07-13] MEDS: Minoxidil 10 MG TAB PO SCH (20:22)
[2017-07-13] MEDS: Nortriptyline HCl 25 MG CAP PO SCH (20:23)
[2017-07-13] MEDS: Terazosin HCl 5 MG CAP PO SCH (20:23)
[2017-07-13] MEDS: Atorvastatin Calcium 10 MG TAB PO SCH (20:24)
[2017-07-13] MEDS ORDERED: traMADol HCl 50 MG TAB PO PRN (22:37)
[2017-07-14] MEDS: Ipratropium Bromide 2.5 ml Neb NEB SCH ×2 (01:02→09:01)
[2017-07-14] MEDS: Sevelamer Carbonate 800 MG TAB PO SCH (08:16)
[2017-07-14] MEDS: Gabapentin 300 MG CAP PO SCH (10:44)
[2017-07-14] MEDS: Raltegravir Potassium 400 MG TAB PO SCH (10:45)
[2017-07-14] MEDS: Senokot S 8.6-50 MG TAB PO SCH (10:45)
[2017-07-14] MEDS: Folic Acid 1 MG TAB PO SCH (10:45)
[2017-07-14] MEDS: Amlodipine 5 MG TAB PO SCH (10:45)
[2017-07-14] MEDS: hydrALAZINE 25 MG TAB PO SCH (10:46)
[2017-07-14] MEDS: Cyanocobalamin (Vitamin B-12) 1,000 MCG TAB PO SCH (10:46)
[2017-07-14 11:45] VITALS: BP 124/60; TEMP 98.5
[2017-07-14] MEDS: Acetaminophen/Codeine 30-300mg Tablet PO PRN (15:04)
--- NOTE | 2017-07-14 18:08 | DIS ---
DATE OF DISCHARGE: 07/14/2017 DISCHARGE DISPOSITION: Home. FOLLOWUP: 1. Follow up with primary care physician, Dr. Ley at [place] in 1 week. 2. Follow up with Dr. Morris in 10 days. ALLERGIES: CLINDAMYCIN, PAXIL and CIPROFLOXACIN. The patient was seen and examined on the day of discharge. Denies any new complaints. No chest pain , shortness of breath, palpitations. His vital signs showed temperature 98.5, pulse rate of 81, resp irations 20 with blood pressure 124/60 with O2 saturation 95% on room air. BRIEF HOSPITAL COURSE: The patient is a 61-year-old male with end-stage renal disease, on hemodialys is; HIV, currently on HAART; hypertension; diabetes mellitus, type 2; and chronic respiratory failure , on home oxygen; presented to the hospital with generalized weakness and near syncope. Please refer to the history and physical dated 07/11/2017 for further details. The patient was admitted to the hospital with a diagnosis of generalized weakness with near syncope, probably secondary to volume overload with suspected pneumonia. He was started on antibiotics to cov er for pneumonia. His blood cultures remained negative. He showed good improvement with hemodialysi s. He was seen by Infectious Disease, Dr. Morris, who discontinued antibiotics yesterday. His chest x-ray after dialysis showed improvement per Dr. Morris. His generalized weakness and near syncope was probably secondary to volume overload with lack of using portable oxygen. He was extensively counse led to continue using oxygen 24 hours a day. He has been cleared by consultants for discharge. He w ill resume hemodialysis tomorrow. FINAL DIAGNOSES: 1. Generalized weakness, multifactorial. 2. Volume overload, secondary to noncompliance with dietary restrictions. 3. History of human immunodeficiency virus, on HAART. 4. Indeterminate troponins, probably secondary to volume overload. The patient underwent cardiac ca theterization earlier this year that showed normal coronaries. 5. Peripheral neuropathy. 6. Hyperlipidemia. 7. Diverticulosis. 8. Hyperkalemia on admission, resolved. 9. Diabetes mellitus, type 2, diet controlled. 10. Metabolic acidosis on admission due to missed hemodialysis. 11. Chronic anemia. Plan of care was discussed with the patient. He stated understanding. SIGNIFICANT LABORATORY DATA: Maximum troponin 0.093 with normal CK-MB. Lactic acid was 1.4. Potass ium on admission 5.2, at discharge 4.4. CBC showed WBC 4.2 with hemoglobin 9.7, hematocrit 29.3, platelet 163. MEDICATIONS AT DISCHARGE: Same as admission medications. No changes in his medications were made.
[2017-07-17 15:20] LABS: Absolute CD4 303 /uL (359-1519); Lymphocytes/Gated Cell Count 0.7 x10E3/uL (0.7-3.1)
--- NOTE | 2017-08-15 11:34 | EKG ---
Test Reason : Blood Pressure : / mmHG Vent. Rate : 082 BPM Atrial Rate : 082 BPM P-R Int : 210 ms QRS Dur : 094 ms QT Int : 398 ms P-R-T Axes : 025 085 -15 degrees QTc Int : 464 ms Sinus rhythm with 1st degree A-V block T wave abnormality, consider inferior ischemia T wave abnormality, consider anterior ischemia Prolonged QT Abnormal ECG Confirmed by OLIVER WHELAN, SYBIL Robles ([id number]), dictionary editor CHELSEA NOWAK ([id number]) on 08/15/2017 11:34:38 AM Referred By: Confirmed By:SYBIL BOYD MD
== END 2017-07-14 15:15 | disposition home or self-care (01) | DRG 640 ==
LOC: ERS 06:59 → ERHOLD 08:52 → 2NO 12:21
PROVIDERS: ADMIT Internal Medicine; ATTEND Internal Medicine
PROC: 5A1D70Z Performance of Urinary Filtration, Intermittent, Less than 6 Hours Per Day (ICD-10-PCS; principal; 2017-07-11)
DX: E87.70 Fluid overload, unspecified (principal); B20 Human immunodeficiency virus [HIV] disease; J96.11 Chronic respiratory failure with hypoxia; N18.6 End stage renal disease; E87.2 Acidosis; I12.0 Hypertensive chronic kidney disease with stage 5 chronic kidney disease or end stage renal disease; I24.8 Other forms of acute ischemic heart disease; E11.22 Type 2 diabetes mellitus with diabetic chronic kidney disease; Z99.2 Dependence on renal dialysis; I44.0 Atrioventricular block, first degree; D63.1 Anemia in chronic kidney disease; G47.33 Obstructive sleep apnea (adult) (pediatric); J44.9 Chronic obstructive pulmonary disease, unspecified; K57.90 Diverticulosis of intestine, part unspecified, without perforation or abscess without bleeding; Z89.612 Acquired absence of left leg above knee; Z88.8 Allergy status to other drugs, medicaments and biological substances; Z87.891 Personal history of nicotine dependence; Y95 Nosocomial condition; E11.42 Type 2 diabetes mellitus with diabetic polyneuropathy; E78.5 Hyperlipidemia, unspecified; E87.5 Hyperkalemia; Z99.81 Dependence on supplemental oxygen; Z91.19 Patient's noncompliance with other medical treatment and regimen; K59.00 Constipation, unspecified
CPT/HCPCS: 36415; 71010; 80053; 82550; 82553; 83605; 83690; 83880; 84484; 85025; 85048; 86361; 87040; 87340; 87633; 87798; 90935; 93005; 94640; 94660; 96365; A4216; G0257; G8978-GP-CM; G8979-GP-CL; G8987-GO-CJ; G8988-GO-CH; J0456; J0692; J1644; J2543; J3370; J7050; J7644

== ENCOUNTER 2017-07-28 05:47 | Day surgery (SDC) | payer OTHER ==
--- NOTE | 2017-07-26 14:06 | HP ---
HISTORY OF PRESENT ILLNESS: Brant Villeda is a 61-year-old black male with a left AKA with a left arm AV fistula, Ramesh type, placed at the [facility] probably in 2004. I did perform a revisional ope ration on this in 2010 with ligation of the large collateral vessels just above the arterial inflow w ith a left wrist Ramesh fistula 09/03/2010. This has served him well for dialysis. The patient has developed several aneurysms over his distal half forearm Ramesh fistula. The plan is to repair these as an outpatient, maintain proximal fistula for usage for cannulation and thus avoiding a catheter. We will plan this as an outpatient under regional anesthesia versus general per Anesthesia evaluatio n. The patient does have a left above knee amputation and does need his left arm for transfers and h e might be a better candidate for a general anesthetic rather than a regional. The patient dialyzes at [facility] on Monday, , and Monday. He is followed by Dr. Singh. The patient is HIV positive, longstanding hypertension, type 2 diabetes mellitus, degenerative joint disease. PAST MEDICAL HISTORY: HIV positive, end-stage renal disease on maintenance dialysis, longstanding hy pertension, type 2 diabetes mellitus, arthritis, left AKA status. PAST SURGICAL HISTORY: Tonsillectomy, hernia repair, left knee replacement, hemorrhoidectomy, renal biopsy. Laparoscopic cholecystectomy that I performed last year, left wrist Ramesh fistula, subseque nt revisions as noted above. MEDICATIONS: Renvela 3 tabs with meals, Sensipar 2 tablets after meals with food once a day, hydrala zine 25 mg 4 times a day, nortriptyline 25 mg at bedtime, minoxidil 10 mg at bedtime, amlodipine 10 m g daily, terazosin 10 mg at bedtime, Raltegravir potassium 400 mg b.i.d., Zidovudine 100 mg t.i.d., V elphoro 1/2 tablets with meals, Etravirine 200 mg b.i.d., atorvastatin 10 mg at bedtime, omeprazole 2 0 mg a day, [place] p.r.n., gabapentin 300 mg once a day. SOCIAL HISTORY: The patient is a . He is single. He lives at home in [place]. ALLERGIES: PAXIL and CIPRO. PHYSICAL EXAMINATION: VITAL SIGNS: Height 74 inches, 168/74, 78, 99.5 degrees. HEENT: Unremarkable. LUNGS: Clear to auscultation. CARDIAC: Regular rate and rhythm without murmur or gallop. EXTREMITIES: Left above the knee amputation status. He arrives in my office in a wheelchair. He do es not have a prosthesis. Left Ramesh fistula, good thrill and bruit outflow seemed to be the basili c vein, 3 aneurysmal dilatations, the distal is the largest, the next largest is the mid one and the smallest is the more proximal, all located in the distal half of his forearm with cephalic vein outfl ow to the basilic vein available for cannulation. ASSESSMENT AND PLAN: 1. Malfunction dialysis fistula left forearm Ramesh type. Plan repair of these aneurysms. We will plan this as an outpatient. Consider general anesthesia as he needs his left arm to transfer and he lives at home independently. 2. Human immunodeficiency virus positive. 3. Hypertension.
[2017-07-27 11:23] VITALS: BMI 25.7
[2017-07-28] MEDS ORDERED: CEFAZOLIN/Water 2 GM/20 ML SYRINGE ONE (06:34)
[2017-07-28] MEDS ORDERED: Lidocaine 2% PF 5 ML VIAL ONE (06:40)
[2017-07-28] MEDS ORDERED: Heparin 5,000 UNITS/ML VIAL ONE (06:40)
[2017-07-28] MEDS ORDERED: Bupivacaine/Epinephrine 0.25% 30 ML VIAL ONE (06:40)
[2017-07-28 06:45] LABS: #Basophils 0.1 thou/uL (0.0-0.2); #Eosinphils 0.2 thou/uL (0.0-0.7); #Lymphocytes 1.4 thou/uL (1.20-3.40); #Monocytes 0.4 thou/uL (0.11-0.59); #Neutrophils 1.8 thou/uL (1.40-6.50); %Basophils 1.4 % (0.0-1.0); %Eosinophils 5.5 % (0.0-10.0); %Lymphocytes 35.3 % (21.0-51.0); %Monocytes 10.1 % (0.0-10.0); Hematocrit 30.8 % (42.0-52.0); Mean Platelet Volume 7.7 fL (7.4-10.4); Red Blood Cell (RBC) Count 2.72 mill/uL (4.70-6.10); White Blood Cell (WBC) Count 3.8 thou/uL (4.8-10.8)
[2017-07-28 06:55] LABS: Anion Gap 15 mmol/L (10-20); BUN (Urea Nitrogen) 45 mg/dL (8.4-25.7); Calc. Creatinine Clearance 20 mL/min (70-130); Calcium 9.8 mg/dL (7.8-10.44); Carbon Dioxide 30 mmol/L (22-29); Chloride 95 mmol/L (98-107); Estimated GFR-MDRD 14
[2017-07-28] MEDS ORDERED: Propofol 500 MG/50 ML VIAL ONE (07:05)
[2017-07-28] MEDS ORDERED: Fentanyl 100 MCG/2 ML VIAL ONE (07:06)
[2017-07-28] MEDS ORDERED: Midazolam HCl 2 mg/2 ml Vial ONE (07:24)
[2017-07-28] MEDS ORDERED: Albuterol Sulfate HFA (OR ONLY) ONE (07:41)
[2017-07-28] MEDS ORDERED: SUGAMMADEX SODIUM 500 MG/5 ML VIAL ONE (08:32)
[2017-07-28] MEDS ORDERED: Sodium Chloride For Inhalation 0.9% 3 ML NEB ONE (09:38)
--- NOTE | 2017-07-28 15:25 | OP ---
DATE OF PROCEDURE: 07/28/2017 PREOPERATIVE DIAGNOSES: End-stage renal disease; morbidly obese; left [id number] amputation stat us; dialyzes Monday, , and Monday; aneurysms; left Ramesh fistula; Human immunodeficiency virus positive; longstanding hypertension; type 2 diabetes mellitus; degenerative joint disease; live s at home. POSTOPERATIVE DIAGNOSES: End-stage renal disease; morbidly obese; left [id number] amputation sta tus; dialyzes Monday, , and Monday; aneurysms; left Ramesh fistula; Human immunodeficiency virus positive; longstanding hypertension; type 2 diabetes mellitus; degenerative joint disease; epifanio es at home with inability to intubate patient, surgery canceled SURGEON: Beto Casas M.D. PROCEDURE: The patient was taken to the operating room where Anesthesia attempts to intubate him wer e unsuccessful. They could visualize the cord structures with glidescope but endotracheal tube did n ot pass, suggestion of subglottic mass or distortion. Surgery was abandoned, and the patient will ross ve an outpatient appointment to see Dr. Gee Andres on Monday. His fistula is functional and it ca n be used and we will reschedule revision of his fistula in the future. Electively, there is no urge ncy to this.
[2017-07-28] MEDS ORDERED: Dexamethasone 20 MG/5 ML VIAL ONE (15:49)
[2017-07-28] MEDS ORDERED: Propofol 200 MG/20 ML VIAL ONE (15:49)
[2017-07-28] MEDS ORDERED: Glycopyrrolate 0.2 MG/ML 5 ML SYRINGE ONE (15:49)
[2017-07-28] MEDS ORDERED: Lidocaine 1% PF 5 ML VIAL ONE (15:49)
== END 2017-07-28 15:22 ==
LOC: SDC 05:47
PROVIDERS: ATTEND Specialist
DX: T82.898A Other specified complication of vascular prosthetic devices, implants and grafts, initial encounter (principal); E11.22 Type 2 diabetes mellitus with diabetic chronic kidney disease; I12.0 Hypertensive chronic kidney disease with stage 5 chronic kidney disease or end stage renal disease; N18.6 End stage renal disease; E66.01 Morbid (severe) obesity due to excess calories; M19.90 Unspecified osteoarthritis, unspecified site; Z53.8 Procedure and treatment not carried out for other reasons; Z21 Asymptomatic human immunodeficiency virus [HIV] infection status; Z68.25 Body mass index [BMI] 25.0-25.9, adult; Z99.2 Dependence on renal dialysis; Z79.82 Long term (current) use of aspirin; Z79.899 Other long term (current) drug therapy; Z88.1 Allergy status to other antibiotic agents; Z88.8 Allergy status to other drugs, medicaments and biological substances; Z96.652 Presence of left artificial knee joint; Z89.612 Acquired absence of left leg above knee; Z90.89 Acquired absence of other organs; Z90.49 Acquired absence of other specified parts of digestive tract; Z98.890 Other specified postprocedural states; Z87.891 Personal history of nicotine dependence
CPT/HCPCS: 36415; 80048; 85025; J0131; J1100; J1644; J2001; J2250; J2704; J3010

== ENCOUNTER 2017-09-04 18:00 | Observation (INO) | payer MEDICARE ==
[2017-09-04 18:54] LABS: #Eosinphils 0.2 thou/uL (0.0-0.7); #Lymphocytes 1.3 thou/uL (1.20-3.40); #Monocytes 0.4 thou/uL (0.11-0.59); #Neutrophils 2.2 thou/uL (1.40-6.50); %Basophils 1.1 % (0.0-1.0); %Eosinophils 3.9 % (0.0-10.0); %Lymphocytes 32.1 % (21.0-51.0); %Monocytes 9.2 % (0.0-10.0); %Neutrophils 53.7 % (42.0-75.0); Hemoglobin 12.8 g/dL (14.0-18.0); Mean Corpuscular HGB CONC 31.2 g/dL (32.0-36.0); Mean Corpuscular Hemoglobin 34.4 pg (27.0-31.0); Mean Platelet Volume 8.1 fL (7.4-10.4); Platelet Count 146 thou/uL (130-400); RBC Distribution Width 13.5 % (11.5-14.5); Red Blood Cell (RBC) Count 3.72 mill/uL (4.70-6.10); White Blood Cell (WBC) Count 4.1 thou/uL (4.8-10.8)
[2017-09-04 19:18] LABS: ALT (SGPT) 7 U/L (8-55); AST (SGOT) 15 U/L (5-34); Albumin 3.5 g/dL (3.4-4.8); Alkaline Phosphatase 135 U/L (40-150); Anion Gap 21 mmol/L (10-20); BUN (Urea Nitrogen) 55 mg/dL (8.4-25.7); Bilirubin, Total 0.5 mg/dL (0.2-1.2); CK (CPK) 211 U/L (30-200); Calc. Creatinine Clearance 0 mL/min (70-130); Carbon Dioxide 24 mmol/L (23-31); Chloride 95 mmol/L (98-107); Estimated GFR-MDRD 10; Globulin 3.2 g/dL (2.4-3.5); Glucose 95 mg/dL (80-115); Lipase 17 U/L (8-78); Potassium 5.6 mmol/L (3.5-5.1); Protein, Total 6.7 g/dL (5.8-8.1); Sodium 134 mmol/L (136-145)
[2017-09-04 19:19] LABS: CKMB 3.7 ng/mL (0-6.6); Troponin I 0.084 ng/mL (< 0.028)
[2017-09-04] MEDS ORDERED: Nitroglycerin 2% Ointment 1 INCH/1 GM Packet ONE (20:01)
[2017-09-04] MEDS ORDERED: Azithromycin 500 MG in Sodium Chloride 0.9% 250 ML 250 ML IVPB ONE (20:15)
[2017-09-04] MEDS ORDERED: Albuterol Sulfate 1.25 MG/3 ML NEB ONE (20:28)
[2017-09-04] MEDS ORDERED: Albuterol Sulfate 2.5 mg/0.5 ml Neb ONE (20:28)
--- NOTE | 2017-09-04 20:29 | RAD ---
PORTABLE CHEST: Date: 09-04-17 Provided Clinical History: Chest pain. FINDINGS: Comparison 07-13-17. Cardiac silhouette remains enlarged. There is patchy parenchymal opacity at the right lung base. The left lung base is suboptimally evaluated. There is no evidence for pneumothorax. Blunting of each cos tophrenic angle could reflect small pleural effusions. IMPRESSION: 1. Cardiomegaly. 2. Right basilar airspace disease that may reflect pneumonia. Follow up is recommended. 3. Blunting of each costophrenic angle may reflect pleural effusions. POS: [facility]
[2017-09-04] MEDS ORDERED: Insulin Regular 300 UNITS/3 ML VIAL ONE (21:42)
[2017-09-04] MEDS ORDERED: Dextrose 50% Abboject 50 ML SYRINGE ONE (21:42)
[2017-09-04] MEDS ORDERED: Morphine 4 MG/ML Carpuject ONE (21:42)
[2017-09-04 22:26] LABS: Troponin I 0.092 ng/mL (< 0.028)
[2017-09-05] MEDS ORDERED: Bisacodyl 5 MG TAB PO PRN (00:10)
[2017-09-05] MEDS ORDERED: Ondansetron ODT 4 MG TAB PO PRN (00:10)
[2017-09-05] MEDS ORDERED: Ondansetron HCl/PF 4 MG/2 ML Vial IVP PRN (00:10)
[2017-09-05] MEDS ORDERED: Bisacodyl 10 MG SUPP PR PRN (00:10)
[2017-09-05] MEDS ORDERED: Enoxaparin Sodium 30 MG/0.3 ML SYRINGE SC SCH (00:30)
[2017-09-05 00:37] VITALS: BMI 28.5
[2017-09-05] MEDS ORDERED: Acetaminophen 325 MG TAB PO SCH (01:00)
[2017-09-05 01:02] LABS: Troponin I 0.098 ng/mL (< 0.028)
[2017-09-05] MEDS ORDERED: Raltegravir Potassium 400 MG TAB PO SCH (01:45)
[2017-09-05] MEDS: Acetaminophen/Codeine 30-300mg Tablet PO PRN ×2 (02:01→18:16)
[2017-09-05] MEDS ORDERED: Gabapentin 300 MG CAP PO SCH (04:00)
[2017-09-05 04:06] LABS: Anion Gap 21 mmol/L (10-20); BUN (Urea Nitrogen) 62 mg/dL (8.4-25.7); Calc. Creatinine Clearance 15 mL/min (70-130); Calcium 8.8 mg/dL (7.8-10.44); Carbon Dioxide 24 mmol/L (23-31); Chloride 94 mmol/L (98-107); Estimated GFR-MDRD 9; Glucose 89 mg/dL (80-115); Potassium 5.2 mmol/L (3.5-5.1); Sodium 134 mmol/L (136-145)
[2017-09-05 04:41] LABS: Troponin I 0.102 ng/mL (< 0.028)
--- NOTE | 2017-09-05 06:50 | HP-2 ---
DATE OF ADMISSION: 09/04/2017 CODE STATUS: FULL. PRIMARY CARE PHYSICIAN: KEN. ATTENDING: Nik Huggins M.D. RESIDENT: Dr. Lester Slade, PGY-1. CHIEF COMPLAINT: Chest pain and feeling bad. HISTORY OF PRESENT ILLNESS: This is a 62-year-old -[place] male, who has a chief complaint of just feeling bad. He said he woke up yesterday from a nap and started having chest pain and having a squeezing like chest pain in the middle of his chest, did not radiate up his jaw or anywhere, but noticed his arms getting weaker and weaker over the last few days. Chest pain was made worse when he got up and moved around and was pushing down on his walker. He also reported having shortness of breath with the chest pain. He said that he tried putting a heating pad on earlier today. It did help a little bit, but did not relieve it all the way. I asked him about GERD like symptoms, he said it did not feel like gas pain to him, said he has had gas pain in the past. Denied any fever, chills, headaches, dizziness. Denied any nausea, vomiting reported being constipated, but says he is constipated all the time. Denied any recent trauma or stretching or lifting up anything heavy that might have injured, denied any fall or anything that might have injured the area of his chest. Denied any recent cough, nasal congestion, or recent illness. REVIEW OF SYSTEMS: All the review of systems not listed in the HPI, otherwise negative at this time. PAST MEDICAL HISTORY: He is HIV positive. He is on end-stage renal disease on dialysis on Monday, Tuesdays, and . He has hypertension, diabetes mellitus type 2, diet controlled, left [id number] amputation, obstructive sleep apnea, COPD, and thyroid cyst. PAST SURGICAL HISTORY: He has had tonsillectomy, hernia repair, left knee replaced. He has had a hemorrhoidectomy, renal biopsy, laparoscopic cholecystectomy, and left wrist Ramesh fistula with multiple revisions. ALLERGIES: PAXIL and CIPRO. MEDICATIONS: He is on; 1. Raltegravir potassium 400 mg 2 times daily. 2. Retrovir 100 mg 3 times daily. 3. Terazosin 10 mg at bedtime. 4. Amlodipine 10 mg daily. 5. Famotidine 20 mg daily. 6. Lisinopril 40 mg 2 times daily. 7. Aspirin 81 mg daily. 8. Gabapentin 300 mg 3 times daily. 9. Nortriptyline 25 mg daily. 10. Pravastatin 40 mg daily. 11. Hydralazine 25 mg 3 times daily. 12. Minoxidil 20 mg daily. 13. Folic acid 1 mg daily. 14. B12 100 mcg daily. 15. Calcium lactate 650 mg daily. 16. Spiriva 18 mcg inhaled. 17. Proventil HFA 2 puffs as needed. SOCIAL HISTORY: Smoked for 11 years, not currently smoking. Alcohol, drinks a little sips every once in a while and not very often. Drugs: No recent drug use, has a history of IV drug use, which he quit back in 1990. PHYSICAL EXAMINATION: VITAL SIGNS: Blood pressure is 135/73, pulse 78, respirations 20, temperature is 98.3, pulse ox 96% on 3 liters. Current weight is 90.72 kilograms. GENERAL: This is alert and oriented x3. Well-developed, obese, appropriately interactive. EYES: Conjunctivae within normal limits. ENT: Nasal mucosa and oropharynx within normal limits. NECK: Supple, no lymphadenopathy, no thyromegaly, no bruits. CARDIOVASCULAR: Regular rate and rhythm. No murmurs, no gallops. Radial pulses, pedal pulses palpated bilaterally. RESPIRATORY: Had normal breathing effort. No retractions. Had decreased breath sounds in the left side and maybe some mild rales bilaterally. SKIN: Warm, dry. No lesions. ABDOMEN: Soft, nontender to palpation. Bowel sounds heard in all 4 quadrants. His belly was a little bit distended and looked like it had a little bit of fluid overload. The patient states that he builds fluid up in his belly usually. EXTREMITIES: No edema, no pitting. MUSCULOSKELETAL: Structure within normal limit, tone within normal, and full range of motion. Does not have his left leg due to amputation. NEUROLOGIC: No focal neuro deficit. LABORATORY DATA: White blood cells 4.1, hemoglobin 12.8, hematocrit 41.1, MCV 110, platelets are 146. Sodium is 134, potassium is 5.6, chloride was 95, CO2 was 24, BUN was 55, creatinine was 7.14, glucose of 95. CK was 211, CK-MB was 2.7. Troponin was 0.084. Lipase was 17. BNP was 156.4, calcium was 9.0, total protein 6.7, albumin 3.5, total bilirubin 0.5, AST 15, ALT 7, alkaline phosphatase is 135. Chest x-ray on the showed, 1. Cardiomegaly. 2. Right basilar airspace disease that may reflect pneumonia. Follow up is recommended. 3. Blunting of each costophrenic angle may reflect pleural effusions. ASSESSMENT AND PLAN: This is a 62-year-old male that came in with: 1. Atypical chest pain, suspect costochondritis. We will do scheduled Tylenol for now and will use ibuprofen once his troponins are not a concern with Cardiology. He had a recent catheterization back in 04/13/2017 that had showed no pathology, so we did not need any further imaging currently at this time. We will continue to trend his troponins. It does look like there was troponins at baseline from the last time he was admitted back in July. We will give him nitro p.r.n. for chest pain. Patient said his pain was made worse when using his walker, so we will consult PT and OT to assess if he is using his walker wrong or if there is something he is doing causing pain when he uses walker. 2. Hyperkalemia. We have consulted his mold closer, Dr. Barrera, will need dialysis. We will await his recommendations. He is on a Monday, , and Monday schedule for dialysis. He has a little bit of fluid overloaded as stated in his physical exam in the abdomen. 3. End-stage renal disease on dialysis. We will put him on strict I's and O's , put him on a renal diet. We will consult Dr. Barrera and await his recommendations. We will need dialysis tomorrow according to his schedule. 4. Human immunodeficiency virus positive. We will continue his antiretroviral therapy. 5. Chronic obstructive pulmonary disease. He does report having some increased shortness of breath, may have some mild chronic obstructive pulmonary disease exacerbation. We will do scheduled DuoNebs q.6 hours. We will recommend repeat chest x-ray after dialysis. His chest x-ray was concerning for pneumonia, but we think it may be more fluid overload. May want to check after dialysis tomorrow. 6. He has obstructive sleep apnea, uses a CPAP at night. We will order a CPAP for him to use while he is here. 7. Hypertension. We will continue his home medications while he is here. 8. Deep venous thrombosis prophylaxis, we will give Lovenox. SOLO
[2017-09-05 07:36] LABS: CKMB 3.3 ng/mL (0-6.6); Troponin I 0.079 ng/mL (< 0.028)
[2017-09-05] MEDS ORDERED: (Sucroferric Oxyhydroxide [Velphoro] 500 MG) PO SCH (08:00)
[2017-09-05] MEDS: Sevelamer Carbonate 800 MG TAB PO SCH ×3 (08:09→18:17)
[2017-09-05] MEDS: Folic Acid 1 MG TAB PO SCH (08:10)
[2017-09-05] MEDS: Lisinopril 20 MG TAB PO SCH ×2 (08:10→20:09)
[2017-09-05] MEDS: hydrALAZINE 25 MG TAB PO SCH ×3 (08:10→20:11)
[2017-09-05] MEDS: Gabapentin 300 MG CAP PO SCH ×3 (08:10→20:11)
[2017-09-05] MEDS: Cyanocobalamin (Vitamin B-12) 1,000 MCG TAB PO SCH (08:10)
[2017-09-05] MEDS: Amlodipine 10 MG TAB PO SCH (08:11)
[2017-09-05] MEDS: Famotidine 20 MG TAB PO SCH (08:11)
[2017-09-05] MEDS: Enoxaparin Sodium 30 MG/0.3 ML SYRINGE SC SCH (08:15)
[2017-09-05] MEDS: CALCIUM LACTATE 650 MG PO SCH (08:15)
[2017-09-05] MEDS ORDERED: Spiriva 18 MCG CAP (Box of 5 Caps) INH SCH (09:00)
[2017-09-05] MEDS: Raltegravir Potassium 400 MG TAB PO SCH ×2 (09:15→20:12)
--- NOTE | 2017-09-05 09:25 | PDOC.FM ---
- Subjective Subjective: No acute events overnight. Pt reports he is feeling ok. Denies cp, sob, nvdc. Awaiting nephro consult, appreciate recs. Pt admits to diet/fluid restriction noncompliance. - Objective Vital Signs & Weight: Vital Signs (12 hours) Temp Pulse Resp BP BP Pulse Ox 09/05/17 07:22 98.3 F 73 20 171/81 H 92 L 09/05/17 06:37 80 16 09/05/17 04:25 80 18 93 L 09/05/17 04:01 98.4 F 83 18 153/70 H 90 L 09/05/17 01:24 80 18 93 L 09/05/17 00:05 98.3 F 80 18 Weight Weight 100.783 kg I&O: 09/04/17 09/05/17 09/06/17 06:59 06:59 06:59 Intake Total 460 Output Total 0 Balance 460 Result Diagrams: 09/04/17 18:45 09/05/17 03:20 Phys Exam - Physical Examination Constitutional: NAD HEENT: PERRLA Neck: no nodes JVD present Respiratory: no wheezing, no rales, no rhonchi diminished bases Cardiovascular: RRR, no significant murmur, no rub Gastrointestinal: soft, non-tender, no distention, positive bowel sounds Musculoskeletal: no edema, pulses present lt aka Neurological: non-focal, moves all 4 limbs Skin: no rash Dx/Plan (1) Atypical chest pain Code(s): R07.89 - OTHER CHEST PAIN Status: Acute (2) Fluid overload Code(s): E87.70 - FLUID OVERLOAD, UNSPECIFIED Status: Acute (3) Hyperkalemia Code(s): E87.5 - HYPERKALEMIA Status: Acute (4) ESRD (end stage renal disease) on dialysis Code(s): N18.6 - END STAGE RENAL DISEASE; Z99.2 - DEPENDENCE ON RENAL DIALYSIS Status: Chronic (5) HIV (human immunodeficiency virus infection) Code(s): B20 - HUMAN IMMUNODEFICIENCY VIRUS [HIV] DISEASE Status: Chronic (6) HTN (hypertension) Code(s): I10 - ESSENTIAL (PRIMARY) HYPERTENSION Status: Chronic Qualifiers: Hypertension type: essential hypertension Qualified Code(s): I10 - Essential (primary) hypertension (7) IVONNE on CPAP Code(s): G47.33 - OBSTRUCTIVE SLEEP APNEA (ADULT) (PEDIATRIC); Z99.89 - DEPENDENCE ON OTHER ENABLING MACHINES AND DEVICES Status: Chronic - Plan Plan: trops indeterminant, at baseline and CKD on dialysis CKD dialysis t,r,sat: nephro consulted appreciate recs. Diet/fluid noncompliance HIV: home meds HTN: home meds DMII: Home meds Fluid overload: dialysis IVONNE on CPAP: continue cpap
[2017-09-05 13:46] LABS: Hep B Surf Ag Non-Reactive S/CO (NonReactive)
--- NOTE | 2017-09-05 13:51 | ADD-PRG ---
DATE OF SERVICE: 09/05/2017 This is an addendum to the note of Dr. Gio Dickens. Mr. Villeda is a pleasant 62-year-old black man admitted with chest pain and general feeling poorl y. He had a normal heart catheterization approximately 1 year ago. He was admitted and his troponin s were trended. He did not demonstrate any evidence of an NSTEMI. He did not have any EKG evidence of ischemic changes. He is also on dialysis and part of his symptoms were due to the fact that he wa s volume overloaded. He will undergo dialysis today and likely be discharged later this afternoon.
--- NOTE | 2017-09-05 20:19 | CON ---
DATE OF CONSULTATION: 09/05/2017 CONSULTING PHYSICIAN: Bruce Archuleta M.D. REQUESTING PHYSICIAN: ER physician. REASON FOR CONSULTATION: Need for maintenance hemodialysis. IMPRESSION: 1. End-stage renal disease, hemodialysis dependent, Monday, , and Monday schedule. 2. Hyperkalemia in the context of end-stage renal disease. 3. Hypervolemia, all related to problem listed above. PLAN: 1. The patient to be dialyzed in accordance with his schedule for extended period of time and to rem ove nothing less than 6 liters of fluid today. 2. Low potassium diet. 3. Further management to be dependent on the clinical course. HISTORY OF PRESENT ILLNESS: History is that of a 62-year-old gentleman who presented here with chest pain and noted with elevated potassium and evidence of fluid overload. As a result of this, helen ramachandran was taken to involve Renal in the management of this case. PAST MEDICAL HISTORY: Significant for end-stage renal disease, hemodialysis dependent, HIV, hyperten fran, type 2 diabetes, obstructive sleep apnea, COPD, and thyroid disease. MEDICATIONS: Reviewed and as documented on [employer]. ALLERGIES: To PAXIL, CIPRO. SOCIAL HISTORY: Remote tobacco use. No alcohol, no illicit drug use. Remote history of IV drug usa ge. PHYSICAL EXAMINATION: GENERAL: The patient was found not to be in any serious distress, noted with the following vital sig ns. VITAL SIGNS: Afebrile with temperature 98.2, pulse 75, respiratory rate of 20, O2 sat of 91% on 3 li ters. Blood pressure /79. HEENT: Unremarkable with moist oral mucosa. NECK: Supple. No conjunctival injection or icterus. CARDIOVASCULAR SYSTEM: First and second heart sounds were heard. RESPIRATORY SYSTEM: Clear to auscultation. DIGESTIVE SYSTEM: Revealed a benign abdomen with positive bowel sounds. EXTREMITIES: No peripheral edema. SKIN: No new gross rash. LYMPHATICS: No peripheral lymphadenopathy. SUMMARY: A 62-year-old gentleman with end-stage renal disease who presented here with shortness of b reath as well as elevated potassium. Thank you for this consultation. We will follow with you.
[2017-09-05] MEDS ORDERED: Minoxidil 10 MG TAB PO SCH (21:00)
[2017-09-05] MEDS ORDERED: Atorvastatin Calcium 10 MG TAB PO SCH (21:00)
[2017-09-05] MEDS ORDERED: Nortriptyline HCl 25 MG CAP PO SCH (21:00)
[2017-09-05] MEDS ORDERED: Terazosin HCl 5 MG CAP PO SCH (21:00)
--- NOTE | 2017-09-06 09:15 | PDOC.FM ---
- Subjective Subjective: Pt had no acute events overnight. Reports he is feeling better, only slightly constipated, which is a chronic issue he deals with. No cp, sob, nvd. - Objective Vital Signs & Weight: Vital Signs (12 hours) Temp Pulse Resp BP Pulse Ox 09/06/17 08:00 98.5 F 79 20 164/77 H 92 L 09/06/17 06:38 80 16 09/06/17 04:09 98.3 F 73 18 150/70 H 95 09/06/17 03:21 95 09/06/17 03:06 77 18 95 09/06/17 00:40 82 18 94 L 09/06/17 00:33 77 18 95 09/05/17 23:13 98.3 F 81 16 150/68 H 93 L Weight Weight 98.974 kg I&O: 09/05/17 09/06/17 09/07/17 06:59 06:59 06:59 Intake Total 460 990 Output Total 0 6000 Balance 460 -5010 Result Diagrams: 09/04/17 18:45 09/05/17 03:20 Phys Exam - Physical Examination Constitutional: NAD HEENT: PERRLA, sclera anicteric Neck: no nodes JVD Respiratory: no wheezing, no rales, no rhonchi, clear to auscultation bilateral Cardiovascular: RRR, no significant murmur, no rub Gastrointestinal: soft, non-tender, no distention, positive bowel sounds Musculoskeletal: no edema, pulses present lt aka Neurological: non-focal, normal sensation, moves all 4 limbs Dx/Plan (1) Atypical chest pain Code(s): R07.89 - OTHER CHEST PAIN Status: Acute (2) Fluid overload Code(s): E87.70 - FLUID OVERLOAD, UNSPECIFIED Status: Acute (3) Hyperkalemia Code(s): E87.5 - HYPERKALEMIA Status: Acute (4) ESRD (end stage renal disease) on dialysis Code(s): N18.6 - END STAGE RENAL DISEASE; Z99.2 - DEPENDENCE ON RENAL DIALYSIS Status: Chronic (5) HIV (human immunodeficiency virus infection) Code(s): B20 - HUMAN IMMUNODEFICIENCY VIRUS [HIV] DISEASE Status: Chronic (6) HTN (hypertension) Code(s): I10 - ESSENTIAL (PRIMARY) HYPERTENSION Status: Chronic Qualifiers: Hypertension type: essential hypertension Qualified Code(s): I10 - Essential (primary) hypertension (7) IVONNE on CPAP Code(s): G47.33 - OBSTRUCTIVE SLEEP APNEA (ADULT) (PEDIATRIC); Z99.89 - DEPENDENCE ON OTHER ENABLING MACHINES AND DEVICES Status: Chronic - Plan Plan: trops indeterminant, at baseline and CKD on dialysis CKD dialysis t,r,sat: nephro consulted appreciate recs. Diet/fluid noncompliance HIV: home meds HTN: home meds DMII: Home meds Pt dialyzed yesterday w/ 6 liters taken off. Pt feels better today Nephro consulted, appreciate recs. Likely stable for dc today Pt at baseline for oxygen requirements. Repeat cxr to ensure resolution with dialysis
[2017-09-06] MEDS: Cyanocobalamin (Vitamin B-12) 1,000 MCG TAB PO SCH (09:17)
[2017-09-06] MEDS: Sevelamer Carbonate 800 MG TAB PO SCH (09:17)
[2017-09-06] MEDS: Gabapentin 300 MG CAP PO SCH (09:18)
[2017-09-06] MEDS: Lisinopril 20 MG TAB PO SCH (09:18)
[2017-09-06] MEDS: Folic Acid 1 MG TAB PO SCH (09:18)
[2017-09-06] MEDS: Enoxaparin Sodium 30 MG/0.3 ML SYRINGE SC SCH (09:18)
[2017-09-06] MEDS: Raltegravir Potassium 400 MG TAB PO SCH (09:18)
[2017-09-06] MEDS: hydrALAZINE 25 MG TAB PO SCH (09:18)
[2017-09-06] MEDS: Famotidine 20 MG TAB PO SCH (09:18)
[2017-09-06] MEDS: Amlodipine 10 MG TAB PO SCH (09:19)
[2017-09-06] MEDS: CALCIUM LACTATE 650 MG PO SCH (09:19)
[2017-09-06 10:18] LABS: Anion Gap 16 mmol/L (10-20); BUN (Urea Nitrogen) 35 mg/dL (8.4-25.7); Calc. Creatinine Clearance 19 mL/min (70-130); Calcium 9.4 mg/dL (7.8-10.44); Carbon Dioxide 28 mmol/L (23-31); Chloride 94 mmol/L (98-107); Estimated GFR-MDRD 12; Glucose 124 mg/dL (80-115); Potassium 4.3 mmol/L (3.5-5.1); Sodium 134 mmol/L (136-145)
--- NOTE | 2017-09-06 10:42 | RAD ---
CHEST TWO VIEWS: History: Right lower lobe pneumonia. Comparison: 09-04-17 FINDINGS: Cardiac silhouette remains enlarged. Pulmonary vasculature is engorged with mild patchy bibasilar and bilateral perihilar infiltrates. Infiltrate at the right lung base is less dense than on the prior s tudy. No evidence of pneumothorax. field clerk leads overlie the chest. IMPRESSION: 1. Interval improvement in aeration of the right lung base. Near complete resolution of the right bas ilar pneumonia. 2. Cardiomegaly. Pulmonary vascular congestion. POS: [facility]
[2017-09-06 11:33] VITALS: BP 159/75; TEMP 98.4
--- NOTE | 2017-09-06 11:54 | ADD-PRG ---
DATE OF SERVICE: 09/06/2017 This is an addendum to the note of Dr. Gio Dickens. Mr. Villeda looks and feels much better after dialysis yesterday. He was dialyzed approximately 6 liters out. Lungs are clear. His chest x-ray shows marked improvement, although does still demonst rate cardiomegaly. He can likely be discharged today.
== END 2017-09-06 12:43 | disposition home or self-care (01) ==
LOC: ERS 18:00 → 2SW 20:05
PROVIDERS: ADMIT Family Medicine; ATTEND Family Medicine
DX: I12.0 Hypertensive chronic kidney disease with stage 5 chronic kidney disease or end stage renal disease (principal); E11.22 Type 2 diabetes mellitus with diabetic chronic kidney disease; N18.6 End stage renal disease; E87.70 Fluid overload, unspecified; E87.5 Hyperkalemia; J44.9 Chronic obstructive pulmonary disease, unspecified; G47.33 Obstructive sleep apnea (adult) (pediatric); E07.9 Disorder of thyroid, unspecified; F17.200 Nicotine dependence, unspecified, uncomplicated; Z21 Asymptomatic human immunodeficiency virus [HIV] infection status; Z88.1 Allergy status to other antibiotic agents; Z99.2 Dependence on renal dialysis
CPT/HCPCS: 71045; 71046; 80048 ×2; 80053; 82550; 82553 ×2; 82962 ×2; 83690; 83880; 84484 ×4; 85025; 87340; 93005; 94640 ×4; 94660 ×2; 96365; 96372 ×2; 96375; 97116; 97139 ×2; 97530; 99291; G0378; G8978; G8979; G8987; G8988; 36415; 36416; 90935; G0257; J0456; J0696; J1650; J1815; J2270; J7050; J7611; J7620

== ENCOUNTER 2017-09-18 14:59 | Emergency (ER) | payer OTHER, MEDICARE ==
[2017-09-18] MEDS ORDERED: Famotidine/PF 20 mg/2ml Vial ONE (15:10)
[2017-09-18] MEDS ORDERED: methylPREDNISolone Sod Succ/PF 125 MG/2 ML VIAL ONE (15:10)
[2017-09-18] MEDS ORDERED: diphenhydrAMINE 50 MG/ML VIAL ONE (15:10)
--- NOTE | 2017-09-18 17:41 | RAD ---
NECK SOFT TISSUES TWO VIEWS: History: Allergic reaction, shortness of breath. FINDINGS: Epiglottis appears normal. The airway is normally maintained. Prevertebral space is normal. No foreig n body. IMPRESSION: Unremarkable soft tissue neck exam. POS: [facility]
--- NOTE | 2017-09-18 17:42 | RAD ---
ONE VIEW CHEST: History: Allergic reaction with shortness of breath. Comparison: 09-06-17 FINDINGS: Cardiomegaly again noted. Vascular congestion. Mild interstitial edema. I cannot exclude small effusi ons. IMPRESSION: There is cardiomegaly and evidence of mild congestive change. POS: [facility]
== END 2017-09-18 18:50 | disposition home or self-care (01) ==
LOC: ERS 14:59
DX: T50.8X5A Adverse effect of diagnostic agents, initial encounter (principal); J44.9 Chronic obstructive pulmonary disease, unspecified; I10 Essential (primary) hypertension; B20 Human immunodeficiency virus [HIV] disease; E78.5 Hyperlipidemia, unspecified; I12.0 Hypertensive chronic kidney disease with stage 5 chronic kidney disease or end stage renal disease; N18.6 End stage renal disease; Z99.2 Dependence on renal dialysis; Z79.899 Other long term (current) drug therapy
CPT/HCPCS: 70360; 70491; 71045; 94760; 96374; 96375; J1200; J2930; S0028

== ENCOUNTER 2017-10-26 05:27 | Emergency (ER) | payer MEDICARE ==
[2017-10-26] MEDS ORDERED: Acetaminophen 500 MG TAB ONE (05:44)
[2017-10-26] MEDS ORDERED: Acetaminophen/Codeine 30-300mg Tablet ONE (06:05)
--- NOTE | 2017-10-26 09:02 | CT ---
PRELIMINARY REPORT/[facility]/EMERGENCY AFTER HOURS PROCEDURE: EXAM: CT Head Without Intravenous Contrast EXAM DATE/TIME: Exam ordered 10/26/2017 5:55 AM CLINICAL HISTORY: 62 years old, male; Injury or trauma; Fall; Initial encounter; Abrasion; Head, generalized; Patient H X: M 62 presents to ed post fall when trying to get into his truck. Pt reports that he was trying to get from his walker to his truck when he slipped and hit his head on the ground. Denies loc and state s that he remembers the entire incident. Pt is monday dialysis pt ([facility]) . Pt is normally on oxygen at home TECHNIQUE: Axial computed tomography images of the head/brain without intravenous contrast. COMPARISON: No relevant prior studies available. FINDINGS: Brain: There are scattered foci of hypoattenuation within the periventricular and subcortical white m atter compatible with mild chronic microvascular ischemic change. There is moderate parenchymal volume loss. No hemorrhage. Ventricles: Normal. No ventriculomegaly. Bones/joints: Normal. No acute fracture. Soft tissues: Normal. Sinuses: Unremarkable as visualized. No acute sinusitis. Mastoid air cells: Unremarkable as visualized. No mastoid effusion. IMPRESSION: No acute intracranial hemorrhage. Thank you for allowing us to participate in the care of your patient. Dictated and Authenticated by: Flaco Harris MD 10/26/2017 6:04 AM Central Time ([place] & [place]) FINAL REPORT CT HEAD NONCONTRAST PERFORMED ON AN EMERGENCY BASIS: Date: 10/26/17 Time: 0555 hours HISTORY: Fall. Head injury. COMPARISON: 11/10/14. FINDINGS: Findings agree with the preliminary report by Rui. No acute intracranial abnormalities are demonstra kenya on noncontrast CT head. POS: [facility]
== END 2017-10-26 07:07 | disposition home or self-care (01) ==
LOC: ERS 05:27
DX: S09.90XA Unspecified injury of head, initial encounter (principal); B20 Human immunodeficiency virus [HIV] disease; E78.5 Hyperlipidemia, unspecified; I12.9 Hypertensive chronic kidney disease with stage 1 through stage 4 chronic kidney disease, or unspecified chronic kidney disease; N18.6 End stage renal disease; Z87.891 Personal history of nicotine dependence; Z79.899 Other long term (current) drug therapy; W01.0XXA Fall on same level from slipping, tripping and stumbling without subsequent striking against object, initial encounter
CPT/HCPCS: 70450

== ENCOUNTER 2017-10-31 11:29 | Inpatient (IN) | payer MEDICARE ==
[2017-10-31 12:25] LABS: #Basophils 0.1 thou/uL (0.0-0.2); #Eosinphils 0.1 thou/uL (0.0-0.7); #Lymphocytes 0.9 thou/uL (1.20-3.40); #Monocytes 0.4 thou/uL (0.11-0.59); #Neutrophils 2.3 thou/uL (1.40-6.50); %Basophils 1.5 % (0.0-1.0); %Eosinophils 3.1 % (0.0-10.0); %Neutrophils 60.4 % (42.0-75.0); Hemoglobin 8.5 g/dL (14.0-18.0); Mean Corpuscular HGB CONC 33.4 g/dL (32.0-36.0); Mean Platelet Volume 7.9 fL (7.4-10.4); Platelet Count 147 thou/uL (130-400); RBC Distribution Width 13.4 % (11.5-14.5); Red Blood Cell (RBC) Count 2.43 mill/uL (4.70-6.10); White Blood Cell (WBC) Count 3.7 thou/uL (4.8-10.8)
[2017-10-31 12:41] LABS: ALT (SGPT) 10 U/L (8-55); AST (SGOT) 18 U/L (5-34); Albumin 3.7 g/dL (3.4-4.8); Alkaline Phosphatase 198 U/L (40-150); Anion Gap 17 mmol/L (10-20); BUN (Urea Nitrogen) 19 mg/dL (8.4-25.7); Bilirubin, Total 0.5 mg/dL (0.2-1.2); CK (CPK) 290 U/L (30-200); CKMB 2.9 ng/mL (0-6.6); Calc. Creatinine Clearance 0 mL/min (70-130); Calcium 8.8 mg/dL (7.8-10.44); Carbon Dioxide 29 mmol/L (23-31); Chloride 96 mmol/L (98-107); Estimated GFR-MDRD 23; Globulin 4.2 g/dL (2.4-3.5); Glucose 88 mg/dL (80-115); Magnesium 2.2 mg/dL (1.6-2.6); Potassium 3.8 mmol/L (3.5-5.1); Protein, Total 7.9 g/dL (5.8-8.1); Sodium 138 mmol/L (136-145); Troponin I 0.109 ng/mL (< 0.028)
--- NOTE | 2017-10-31 12:51 | RAD ---
PORTABLE UPRIGHT FRONTAL CHEST RADIOGRAPH: Date: 10-31-17 Comparison: 09-18-17 History: Chest pain. FINDINGS: There is pulmonary vascular congestion. Cardiac silhouette is enlarged. There is no pneumothorax. The re is bilateral perihilar and bibasilar interstitial prominence with mild hazy density in both lung b ases suggesting mild airspace disease and volume loss. IMPRESSION: Pulmonary vascular congestion with prominent cardiac silhouette and findings suggesting pulmonary isabelle ma. Infection or aspiration in the lung bases cannot be excluded. Follow up to resolution advised. POS: [facility]
[2017-10-31] MEDS ORDERED: Nitroglycerin 2% Ointment 1 INCH/1 GM Packet ONE (13:37)
[2017-10-31] MEDS ORDERED: Acetaminophen 650 MG Suppository PR PRN (15:42)
[2017-10-31] MEDS ORDERED: Nitroglycerin 0.4 MG TAB (25 Tab Bottle) PO PRN (15:42)
[2017-10-31 16:04] LABS: Troponin I 0.112 ng/mL (< 0.028)
[2017-10-31 17:06] VITALS: BMI 23.1
--- NOTE | 2017-10-31 18:04 | HP ---
PRIMARY CARE PHYSICIAN: Dr. Maryana Salomon, [facility] in [place]. CHIEF COMPLAINT: Pain all over his body. HISTORY OF PRESENT ILLNESS: Mr. Villeda is a pleasant 62-year-old gentleman who was seen at [facility] on 10/31/2017. He reports that approximately a week ago, he fell to the ground while getting into his truck. He hit his head on the concrete ground. He was seen at this emergency room. He had an unremarkable CT sca n of the brain. He was discharged from the emergency room. Since then, he has had pain all over his body. He reports pain in both his shoulders and in his righ t lower extremity. He also reports pain over his chest on and off. The pain is occasionally on the left side and occasionally on the right side. It is worse with movement. He denies any pleuritic co mponent. He denies any fevers or chills. He is a hemodialysis patient. He had hemodialysis today. At the end of hemodialysis, he was found t o be hypoxic, saturating 87% on room air. He was therefore sent to the emergency room. REVIEW OF SYSTEMS: The following complete review of systems was negative, unless otherwise mentioned in the HPI or below: Constitutional: Weight loss or gain, ability to conduct usual activities. Skin: Rash, itching. Eyes: Double vision, pain. ENT/Mouth: Nose bleeding, neck stiffness, pain, tenderness. Cardiovascular: Palpitations, dyspnea on exertion, orthopnea. Respiratory: Shortness of breath, wheezing, cough, hemoptysis, fever or night sweats. Gastrointestinal: Poor appetite, abdominal pain, heartburn, nausea, vomiting, constipation, or diarrhea. Genitourinary: Urgency, frequency, dysuria, nocturia. Musculoskeletal: Pain, swelling. Neurologic/Psychiatric: Anxiety, depression. Allergy/Immunologic: Skin rash, bleeding tendency. PAST MEDICAL HISTORY: Significant for, 1. End-stage renal disease, on hemodialysis Monday, , and Monday. 2. Normal coronaries on cardiac catheterization in 03/2017. 3. HIV infection, on HAART. 4. Diabetes mellitus type 2, diet controlled. 5. Anemia secondary to renal insufficiency. 6. Obstructive sleep apnea syndrome. 7. Chronic obstructive pulmonary disease. 8. Diverticulosis. 9. Left above knee amputation. PAST SURGICAL HISTORY: Significant for dialysis access, left above knee amputation, cholecystectomy, abdominal hernia repair, hemorrhoidectomy, left total knee replacement complicated with Staphylococc al infection requiring left above knee amputation, tonsillectomy with uvulectomy. SOCIAL HISTORY: The patient is a former recreational drug user and a former smoker. He drinks alcoh ol occasionally. FAMILY HISTORY: Significant for heart disease in 2 of his younger brothers. ALLERGIES: CIPROFLOXACIN, CLINDAMYCIN, IODINE, and PAROXETINE. CURRENT MEDICATIONS: These have been reviewed. Some of the doses need to be clarified, but he appea rs to be on Tylenol No. 3, Proventil HFA, amlodipine, calcium, lactate, vitamin B12, Intelence, Folvi te, gabapentin, Apresoline, lisinopril, minoxidil, nortriptyline, omeprazole, pravastatin, Isentress, Renvela, Velphoro, Hytrin, Spiriva, and Retrovir. PHYSICAL EXAMINATION: GENERAL: Mr. Villeda is awake and alert, not in acute distress. VITAL SIGNS: Blood pressure is 164/76, pulse is 78, his breathing at rate of 16, and saturating 92% on 3 liters of oxygen. He is afebrile. EYES: No scleral icterus. No conjunctival pallor. ENT: Moist mucosal membranes. No oropharyngeal erythema or exudates. NECK: Supple, nontender, normal range of movement. Trachea is midline. RESPIRATORY: Accessory muscles of breathing are not active. Chest wall movements are symmetric bila terally. LUNGS: Clear to auscultation without wheeze, rhonchi or crepitations. CARDIOVASCULAR: S1 and S2 are heard, regular. LUNGS: Peripheral pulses palpable in the upper extremities. No pericardial rub, no carotid bruit. ABDOMEN: Soft, distended, nontender, bowel sounds are heard, no hepatomegaly, no splenomegaly. NEUROLOGIC: Cranial nerves II-XII intact. MUSCULOSKELETAL: He is status post left above knee amputation. Power is 5/5 in the other three extr emities. SKIN: No rashes or subcutaneous nodules. LYMPHATIC: No cervical lymphadenopathy. PSYCHIATRIC: Normal mood, normal affect. The patient is oriented to person, place, and time. LABORATORY DATA: Mr. Villeda labs and investigations were reviewed. I reviewed his electrocardio gram, which shows normal sinus rhythm with T-wave inversion and flattening in the anterolateral leads . I also reviewed his chest x-ray, which does not show any pulmonary infiltrates. He does have pulm onary vascular congestion. He has leukopenia with 3700 white cells, macrocytic anemia with hemoglobi n 8.5, normal sodium, normal potassium, elevated creatinine of 3.35, normal blood urea nitrogen, norm al total bilirubin, normal AST, normal ALT, elevated alkaline phosphatase of 198, alkaline phosphatas e is normal at 135 on 09/04/2017, elevated creatinine kinase of 290, he appears to have had chronical ly elevated CK level, indeterminate troponin I of 0.112 and a normal albumin level. ASSESSMENT AND PLAN: Mr. Villeda is a pleasant 62-year-old gentleman who was seen at [facility] on 10/31/2017. His problem list includes: 1. Acute hypoxic respiratory failure: Mr. Villeda is presenting with acute hypoxic respiratory f ailure, likely secondary to volume overload. He will be admitted to the hospital for further managem ent. 2. End-stage renal disease, on hemodialysis. He has been dialyzed today. I discussed his case with his handkerchief cutter. He will be dialyzed again tomorrow. 3. Chest pain: He had normal coronaries on cardiac catheterization in 03/2017. Chest pain is less likely to be cardiac. We will recheck his troponin level. We will also check a D-dimer. His chest pain appears to be musculoskeletal. 4. Human immunodeficiency virus infection. Continue home medications once clarified. 5. Hypertension: Monitor vital signs, titrate antihypertensives as needed. 6. Dyslipidemia: Continue statin. Many thanks for allowing me to participate in your patient's care. Please feel free to contact me wi th any questions or concerns. LEVEL OF RISK: High. LEVEL OF COMPLEXITY: High.
[2017-10-31 18:35] LABS: Troponin I 0.109 ng/mL (< 0.028)
[2017-10-31 18:39] LABS: HBSAg Index 0.38 S/CO (0-0.99); Hep B Surf Ag Non-Reactive S/CO (NonReactive)
[2017-10-31] MEDS: Acetaminophen/Codeine 30-300mg Tablet PO PRN (18:45)
[2017-10-31] MEDS: Ipratropium Bromide 2.5 ml Neb NEB SCH (19:06)
--- NOTE | 2017-10-31 20:46 | CON ---
DATE OF CONSULTATION: 10/31/2017 CONSULTING PHYSICIAN: Bruce Archuleta M.D. REQUESTING PHYSICIAN: Dr. Fragoso. REASON FOR CONSULTATION: Need for hemodialysis in the patient with end-stage renal disease, who pres ented here hypoxic. IMPRESSION: 1. Hypoxic respiratory failure, this is likely in the context of pulmonary congestion from fluid ove rload. 2. End-stage renal disease, hemodialysis-dependent, dialyzed today. 3. Morbid obesity. PLAN: 1. We will place this patient on daily dialysis starting from tomorrow to remove the extra fluid qiana t this patient obviously has accumulated. 2. Further management to be dependent on the clinical course. HISTORY OF PRESENT ILLNESS: This is a 62-year-old gentleman with end-stage renal disease, hemodialys is-dependent, who did his dialysis today; however, the patient has been complaining of generalized anurag dy pain, progressive weakness to the point that patient fell down recently. Patient on presentation to the ER was noted to be hypoxic on room air, but responded to nasal oxygen supplementation. As a re sult of the findings of pulmonary congestion and hypoxic, decision has been taken to involve Renal in the management of this case. PAST MEDICAL HISTORY: Significant for end-stage renal disease, hemodialysis-dependent; HIV on antire troviral medication; type 2 diabetes; anemia; obstructive sleep apnea; COPD; diverticulosis. MEDICATIONS: Reviewed as documented on [employer]. SOCIAL HISTORY: Remote illicit drug use. Tobacco use. No alcohol consumption. FAMILY HISTORY: No heart disease. ALLERGIES: CIPRO, CLINDAMYCIN, IODINE, PAROXETINE. REVIEW OF SYSTEMS: As documented in the body of the history. All the other systems were reviewed an d found not to be significantly related to the presenting illness. PHYSICAL EXAMINATION: GENERAL: The patient was found to be lethargic noted with the following vital signs, VITAL SIGNS: Afebrile, temperature 98.6, pulse 78, respiratory rate 20, O2 saturation of 94% on 3 li ters, blood pressure 151/71. HEENT: Unremarkable with moist oral mucosa. NECK: Supple. No conjunctival injection or icterus. CARDIOVASCULAR SYSTEM: First and second heart sounds were heard. RESPIRATORY SYSTEM: Clear to auscultation. DIGESTIVE SYSTEM: Revealed obese abdomen. EXTREMITIES: No peripheral edema. SKIN: No new gross rash. LYMPHATICS: No peripheral lymphadenopathy. SUMMARY: A 62-year-old gentleman with end-stage renal disease, hemodialysis-dependent, who presented here with generalized weakness and body pain noted to be hypoxic. Thank you for this consultation. We will follow with you.
[2017-10-31] MEDS: traMADol HCl 50 MG TAB PO PRN (21:21)
[2017-10-31] MEDS: Nortriptyline HCl 25 MG CAP PO SCH (21:22)
[2017-10-31] MEDS: Lisinopril 20 MG TAB PO SCH (21:23)
[2017-10-31] MEDS: Terazosin HCl 5 MG CAP PO SCH (21:23)
[2017-10-31] MEDS: Gabapentin 300 MG CAP PO SCH (21:23)
[2017-10-31] MEDS: Atorvastatin Calcium 10 MG TAB PO SCH (21:23)
[2017-10-31] MEDS: hydrALAZINE 25 MG TAB PO SCH (21:23)
[2017-10-31] MEDS: Raltegravir Potassium 400 MG TAB PO SCH (21:23)
[2017-10-31] MEDS: Minoxidil 10 MG TAB PO SCH (21:23)
[2017-10-31] MEDS: Heparin 5,000 UNITS/ML VIAL SC SCH (21:25)
[2017-10-31] MEDS: Sodium Chloride 0.9% 10 ML ONE (21:25)
[2017-10-31] MEDS: Acetaminophen 325 MG TAB PO PRN (23:56)
[2017-11-01] MEDS: Ipratropium Bromide 2.5 ml Neb NEB SCH ×5 (00:46→23:53)
[2017-11-01] MEDS: Acetaminophen/Codeine 30-300mg Tablet PO PRN ×3 (04:47→22:12)
[2017-11-01 05:46] LABS: #Eosinphils 0.1 thou/uL (0.0-0.7); #Lymphocytes 1.1 thou/uL (1.20-3.40); #Monocytes 0.3 thou/uL (0.11-0.59); #Neutrophils 1.4 thou/uL (1.40-6.50); %Basophils 0.2 % (0.0-1.0); %Eosinophils 2.7 % (0.0-10.0); %Lymphocytes 37.5 % (21.0-51.0); %Monocytes 10.3 % (0.0-10.0); %Neutrophils 49.3 % (42.0-75.0); Hemoglobin 7.9 g/dL (14.0-18.0); Mean Corpuscular HGB CONC 32.9 g/dL (32.0-36.0); Mean Corpuscular Hemoglobin 34.9 pg (27.0-31.0); Mean Platelet Volume 6.9 fL (7.4-10.4); Platelet Count 136 thou/uL (130-400); RBC Distribution Width 13.4 % (11.5-14.5); Red Blood Cell (RBC) Count 2.26 mill/uL (4.70-6.10); White Blood Cell (WBC) Count 2.9 thou/uL (4.8-10.8)
[2017-11-01 06:01] LABS: Anion Gap 15 mmol/L (10-20); BUN (Urea Nitrogen) 27 mg/dL (8.4-25.7); Calc. Creatinine Clearance 24 mL/min (70-130); Calcium 8.9 mg/dL (7.8-10.44); Carbon Dioxide 30 mmol/L (23-31); Chloride 95 mmol/L (98-107); Estimated GFR-MDRD 16; Glucose 86 mg/dL (80-115); Potassium 3.9 mmol/L (3.5-5.1); Sodium 136 mmol/L (136-145)
[2017-11-01 06:03] LABS: ALT (SGPT) 8 U/L (8-55); AST (SGOT) 12 U/L (5-34); Albumin 3.3 g/dL (3.4-4.8); Alkaline Phosphatase 178 U/L (40-150); Bilirubin, Direct 0.2 mg/dL (0.1-0.3); Bilirubin, Total 0.5 mg/dL (0.2-1.2); Protein, Total 6.7 g/dL (5.8-8.1)
[2017-11-01] MEDS: PROVENTIL INHALER 6.7 G (200 INHALATIONS) INH SCH (06:58)
[2017-11-01] MEDS: Sevelamer Carbonate 800 MG TAB PO SCH ×3 (08:00→16:32)
[2017-11-01] MEDS: hydrALAZINE 25 MG TAB PO SCH ×3 (09:00→20:29)
[2017-11-01] MEDS: Heparin 5,000 UNITS/ML VIAL SC SCH ×3 (09:00→20:30)
[2017-11-01] MEDS ORDERED: Heparin 10,000 UNITS/ 10 ML VIAL ONE (09:00)
[2017-11-01] MEDS ORDERED: Prevnar 13-Val Conj/PF 0.5 ML SYRINGE IM ONE (09:00)
[2017-11-01] MEDS ORDERED: CALCIUM LACTATE 650 MG PO SCH (09:00)
[2017-11-01] MEDS: Gabapentin 300 MG CAP PO SCH ×3 (14:35→20:28)
--- NOTE | 2017-11-01 14:40 | PDOC.PN ---
- Subjective Encounter Start Date: 11/01/17 Encounter Start Time: 07:20 Pt seen for followup re: volume overload. Reports shortness of breath is better. Denies chest pain. - Objective MAR Reviewed: Yes Vital Signs & Weight: Vital Signs (12 hours) Temp Pulse Resp BP BP Pulse Ox 11/01/17 14:09 97.8 F 74 18 116/55 L 92 L 11/01/17 13:27 74 16 97 11/01/17 06:58 94 L 11/01/17 06:56 74 15 94 L 11/01/17 04:39 97.3 F L 71 16 102/53 L 94 L Weight Weight 221 lb 8 oz I&O: 10/31/17 11/01/17 11/02/17 06:59 06:59 06:59 Intake Total 810 Output Total 0 Balance 810 Result Diagrams: 11/01/17 05:27 11/01/17 05:27 Additional Labs: Accuchecks 10/31/17 16:44 POC Glucose 100 EKG Reviewed by me: Yes (Tele: NSR) Phys Exam - Physical Examination Constitutional: NAD HEENT: PERRLA, moist MMs, sclera anicteric, oral pharynx no lesions Neck: no nodes, no JVD, supple, full ROM Respiratory: no wheezing, no rhonchi Dave crackles Cardiovascular: RRR, no rub Gastrointestinal: soft s/p L AKA Neurological: moves all 4 limbs Psychiatric: normal affect Dx/Plan (1) Volume overload Code(s): E87.70 - FLUID OVERLOAD, UNSPECIFIED Status: Acute Comment: Pt undergoing dialysis today (2) ESRD (end stage renal disease) on dialysis Code(s): N18.6 - END STAGE RENAL DISEASE; Z99.2 - DEPENDENCE ON RENAL DIALYSIS Status: Chronic Comment: Dialysis per nephrology service (3) HIV (human immunodeficiency virus infection) Code(s): B20 - HUMAN IMMUNODEFICIENCY VIRUS [HIV] DISEASE Status: Chronic Comment: Continue retroviral therapy (4) HTN (hypertension) Code(s): I10 - ESSENTIAL (PRIMARY) HYPERTENSION Status: Chronic Qualifiers: Hypertension type: essential hypertension Qualified Code(s): I10 - Essential (primary) hypertension Comment: Monitor vital signs, titrate antihypertensives as needed - Plan DVT proph w/heparin * . Check VQ scan to r/o PE Review of Systems - Review of Systems Constitutional: negative: fever, chills, sweats, weakness, malaise Respiratory: SOB with Excertion. negative: Cough, Dry, Shortness of Breath, Hemoptysis, Pleuritic Pain, Sputum, Wheezing Cardiovascular: negative: chest pain, palpitations, orthopnea, paroxysmal nocturnal dyspnea, edema, light headedness Gastrointestinal: negative: Nausea, Vomiting, Abdominal Pain, Diarrhea, Constipation, Melena, Hematochezia Genitourinary: negative: Dysuria, Frequency, Incontinence, Hematuria, Retention - Medications/Allergies Allergies/Adverse Reactions: Allergies Allergy/AdvReac Type Severity Reaction Status Date / Time clindamycin Allergy Intermediate CAUSED Verified 07/27/17 11:21 HYPERKALEMIA iodine Allergy Intermediate ITCHING, Verified 09/18/17 14:43 FELT LUMP IN THROAT paroxetine HCl [From Paxil] Allergy Intermediate PT STATES Verified 07/27/17 11: 21 IT MADE HIM VERY CRAZY IN HEAD ciprofloxacin Allergy Verified 07/27/17 11:21 Medications: Current Medications Acetaminophen (Tylenol) 650 mg PO Q4H PRN PRN Reason: Headache/Fever or Pain Last Admin: 10/31/17 23:56 Dose: 650 mg Acetaminophen (Tylenol) 650 mg [place] Q4H PRN PRN Reason: Headache/Fever or Pain Acetaminophen/Codeine Phosphate (Tylenol #3) 1 tab PO TIDPRN PRN PRN Reason: Pain Last Admin: 11/01/17 14:35 Dose: 1 tab Albuterol Sulfate (Proventil Hfa) 2 puff INH DAILY-RT [facility] Last Admin: 11/01/17 06:58 Dose: 2 puff Amlodipine Besylate (Norvasc) 10 mg PO DAILY [facility] Atorvastatin Calcium (Lipitor) 10 mg PO HS [facility] Last Admin: 10/31/17 21:23 Dose: 10 mg Bisacodyl (Dulcolax) 10 mg PO DAILYPRN PRN PRN Reason: Constipation Cyanocobalamin (Vitamin B-12) 1,000 mcg PO DAILY [facility] Etravirine (Intelence) 200 mg PO BID-PC [facility] Last Admin: 10/31/17 22:33 Dose: 200 mg Folic Acid (Folvite) 1 mg PO DAILY [facility] Gabapentin (Neurontin) 300 mg PO TID [facility] Last Admin: 03/21/18 14:35 Dose: 300 mg Heparin Sodium (Porcine) (Heparin) 5,000 units SC TID [facility] Last Admin: 10/31/17 21:25 Dose: 5,000 units Hydralazine HCl (Apresoline) 25 mg PO TID [facility] Last Admin: 10/31/17 21:23 Dose: 25 mg Ipratropium [place] (Atrovent) 2.5 ml NEB [id number] [facility] Last Admin: 11/01/17 13:27 Dose: 2.5 ml Lisinopril (Zestril) 40 mg PO BID [facility] Last Admin: 10/31/17 21:23 Dose: 40 mg Minoxidil (Minoxidil) 20 mg PO HS [facility] Last Admin: 10/31/17 21:23 Dose: 20 mg Nitroglycerin (Nitrostat) 0.4 mg PO Q5MIN PRN PRN Reason: Chest Pain Last Admin: 10/31/17 23:43 Dose: 0.4 mg Nortriptyline HCl (Pamelor) 25 mg PO [facility] Last Admin: 10/31/17 21:22 Dose: 25 mg Pantoprazole Sodium (Protonix) 40 mg PO DAILY [facility] Calcium Lactate [ Calcium Lactate] 650 Mg 0 each PO DAILY [facility] Sucroferric Oxyhydroxide [ Velphoro] 500 Mg 0 each PO TID-[facility] Raltegravir (Isentress) 400 mg PO BID [facility] Last Admin: 10/31/17 21:23 Dose: 400 mg Sevelamer Carbonate (Renvela) 2,400 mg PO TID-[facility] Terazosin HCl (Hytrin) 10 mg PO [facility] Last Admin: 10/31/17 21:23 Dose: 10 mg Tramadol HCl (Ultram) 50 mg PO Q6H PRN PRN Reason: Pain Last Admin: 10/31/17 21:21 Dose: 50 mg Zidovudine (Retrovir) 100 mg PO TID [facility] Last Admin: 10/31/17 21:24 Dose: 100 mg
[2017-11-01] MEDS: Raltegravir Potassium 400 MG TAB PO SCH ×2 (16:36→20:28)
[2017-11-01] MEDS: Folic Acid 1 MG TAB PO SCH (16:37)
[2017-11-01] MEDS: Amlodipine 10 MG TAB PO SCH (16:38)
[2017-11-01] MEDS: Cyanocobalamin (Vitamin B-12) 1,000 MCG TAB PO SCH (16:38)
[2017-11-01] MEDS: Lisinopril 20 MG TAB PO SCH ×2 (16:40→22:12)
--- NOTE | 2017-11-01 16:51 | NM ---
NUCLEAR MEDICINE VENTILATION PERFUSION EVALUATION 11/01/17 CLINICAL HISTORY: Chest pain. FINDINGS: Ventilation portion of the exam reveals relatively homogeneous distribution of each lung without sign ificant retention. There is a moderate sized wedge shaped perfusion defect of the right lung with a c orrelative region of radiographic opacity of the right perihilar region demonstrated on radiograph pr eceding day. IMPRESSION: Intermediate probability VQ scan with moderate perfusion defect seen within the right lung. POS: [facility]
--- NOTE | 2017-11-01 19:59 | PRG ---
DATE OF SERVICE: 11/01/2017 SUBJECTIVE: The patient was seen and examined, seems to be feeling better and noted with the followi ng vital signs. OBJECTIVE: VITAL SIGNS: Afebrile with temperature of 98.2, pulse 83, blood pressure 138/65, respiratory of 18 a nd O2 sat of 92%. HEENT: Unremarkable with moist oral mucosa. No conjunctival injection or icterus. NECK: Supple. CARDIOVASCULAR SYSTEM: First and second heart sounds were heard. RESPIRATORY SYSTEM: Clear to auscultation. DIGESTIVE SYSTEM: Revealed an obese abdomen. EXTREMITIES: No peripheral edema. SKIN: No new gross rash. LYMPHATICS: No peripheral lymphadenopathy. IMPRESSION: 1. End-stage renal disease, hemodialysis dependent. 2. Hypoxic respiratory failure in the context of problem #3. 3. Hypervolemia. PLAN: 1. The patient was dialyzed today with ultrafiltration of about 6 liters of fluid. He will be dialy zed again tomorrow in accordance with the scheduled Monday, and Monday, afterwards the pa tient to continue with Monday, , and Monday schedule. 2. Further management will be dependent on the clinical course.
--- NOTE | 2017-11-01 20:23 | EKG ---
Test Reason : STAT Blood Pressure : / mmHG Vent. Rate : 079 BPM Atrial Rate : 079 BPM P-R Int : 206 ms QRS Dur : 106 ms QT Int : 400 ms P-R-T Axes : 030 102 -83 degrees QTc Int : 458 ms Normal sinus rhythm Rightward axis Abnormal ECG When compared with ECG of 04-SEP-2017 18:17, Questionable change in QRS axis ST now depressed in Anterior leads T wave inversion now evident in Inferior leads T wave inversion now evident in Anterolateral leads Confirmed by CHESTER WHELAN, DR. Haines ([id number]) on 11/01/2017 8:23:19 PM Referred By: LISA Confirmed By:DR. Yancy BRIGGS MD
[2017-11-01] MEDS: Terazosin HCl 5 MG CAP PO SCH (20:27)
[2017-11-01] MEDS: Atorvastatin Calcium 10 MG TAB PO SCH (20:28)
[2017-11-01] MEDS: Minoxidil 10 MG TAB PO SCH (20:28)
[2017-11-01] MEDS: traMADol HCl 50 MG TAB PO PRN (20:29)
[2017-11-01] MEDS: Bisacodyl 5 MG TAB PO PRN (20:29)
[2017-11-01] MEDS: Nortriptyline HCl 25 MG CAP PO SCH (20:29)
[2017-11-01] MEDS: Sodium Chloride 0.9% 10 ML ONE (20:30)
[2017-11-02] MEDS: Acetaminophen 325 MG TAB PO PRN (00:14)
[2017-11-02] MEDS: Sucroferric Oxyhydroxide [Velphoro] 500 MG PO SCH ×2 (04:20→04:21)
[2017-11-02] MEDS: traMADol HCl 50 MG TAB PO PRN ×2 (04:27→23:14)
[2017-11-02] MEDS: Ipratropium Bromide 2.5 ml Neb NEB SCH ×3 (06:39→18:13)
[2017-11-02] MEDS: PROVENTIL INHALER 6.7 G (200 INHALATIONS) INH SCH (06:40)
[2017-11-02] MEDS: Sevelamer Carbonate 800 MG TAB PO SCH ×3 (08:05→17:36)
[2017-11-02] MEDS ORDERED: Iopamidol 370 76% 100 ML VIAL ONE (10:07)
--- NOTE | 2017-11-02 12:25 | PDOC.PN ---
- Subjective Encounter Start Date: 11/02/17 Encounter Start Time: 07:20 Pt seen for followup re: volume overload. Shortness of breath is better. No nausea or vomiting. - Objective MAR Reviewed: Yes Vital Signs & Weight: Vital Signs (12 hours) Temp Pulse Resp BP Pulse Ox 11/02/17 06:41 93 L 11/02/17 06:39 75 15 93 L 11/02/17 04:00 98.2 F 82 18 136/70 91 L Weight Weight 217 lb 13.067 oz I&O: 11/01/17 11/02/17 11/03/17 06:59 06:59 06:59 Intake Total 810 1030 Output Total 0 0 Balance 810 1030 Result Diagrams: 11/02/17 12:52 11/02/17 12:52 EKG Reviewed by me: Yes (Tele: NSR) Phys Exam - Physical Examination Constitutional: NAD HEENT: moist MMs, sclera anicteric, oral pharynx no lesions, 2+ tonsils Neck: no nodes, no JVD, supple, full ROM Respiratory: no wheezing, no rhonchi Dave crackles Cardiovascular: RRR, no rub s/p L AKA Neurological: moves all 4 limbs Psychiatric: normal affect Dx/Plan (1) Volume overload Code(s): E87.70 - FLUID OVERLOAD, UNSPECIFIED Status: Acute Comment: Pt to have dialysis today (had yesterday and day before yesterday as well). (2) ESRD (end stage renal disease) on dialysis Code(s): N18.6 - END STAGE RENAL DISEASE; Z99.2 - DEPENDENCE ON RENAL DIALYSIS Status: Chronic Comment: Dialysis per nephrology service (3) HIV (human immunodeficiency virus infection) Code(s): B20 - HUMAN IMMUNODEFICIENCY VIRUS [HIV] DISEASE Status: Chronic Comment: Continue HAART (4) HTN (hypertension) Code(s): I10 - ESSENTIAL (PRIMARY) HYPERTENSION Status: Chronic Qualifiers: Hypertension type: essential hypertension Qualified Code(s): I10 - Essential (primary) hypertension Comment: Monitor vital signs, titrate antihypertensives as needed - Plan * . CTA chest with prep to r/o PE Review of Systems - Review of Systems Constitutional: negative: fever, chills, sweats, weakness, malaise Respiratory: SOB with Excertion. negative: Cough, Dry, Shortness of Breath, Hemoptysis, Pleuritic Pain, Sputum, Wheezing Cardiovascular: chest pain. negative: palpitations, orthopnea, paroxysmal nocturnal dyspnea, edema, light headedness Skin: negative: Rash, Lesions, Ermias, Bruising, Other Neurological: negative: Weakness, Numbness, Incoordination, Change in Speech, Confusion, Seizures - Medications/Allergies Allergies/Adverse Reactions: Allergies Allergy/AdvReac Type Severity Reaction Status Date / Time clindamycin Allergy Intermediate CAUSED Verified 07/27/17 11:21 HYPERKALEMIA iodine Allergy Intermediate ITCHING, Verified 09/18/17 14:43 FELT LUMP IN THROAT paroxetine HCl [From Paxil] Allergy Intermediate PT STATES Verified 07/27/17 11: 21 IT MADE HIM VERY CRAZY IN HEAD ciprofloxacin Allergy Verified 07/27/17 11:21 Medications: Current Medications Acetaminophen (Tylenol) 650 mg PO Q4H PRN PRN Reason: Headache/Fever or Pain Last Admin: 11/02/17 00:14 Dose: 650 mg Acetaminophen (Tylenol) 650 mg [place] Q4H PRN PRN Reason: Headache/Fever or Pain Acetaminophen/Codeine Phosphate (Tylenol #3) 1 tab PO Q4H PRN PRN Reason: Moderate Pain (4-6) Albuterol Sulfate (Proventil Hfa) 2 puff INH DAILY-RT [facility] Last Admin: 11/02/17 06:40 Dose: 2 puff Amlodipine Besylate (Norvasc) 10 mg PO DAILY [facility] Last Admin: 11/01/17 16:38 Dose: 10 mg Atorvastatin Calcium (Lipitor) 10 mg PO HS [facility] Last Admin: 11/01/17 20:28 Dose: 10 mg Bisacodyl (Dulcolax) 10 mg PO DAILYPRN PRN PRN Reason: Constipation Last Admin: 11/01/17 20:29 Dose: 10 mg Cyanocobalamin (Vitamin B-12) 1,000 mcg PO DAILY [facility] Last Admin: 11/01/17 16:38 Dose: 1,000 mcg Etravirine (Intelence) 200 mg PO BID-PC [facility] Last Admin: 11/02/17 08:06 Dose: 200 mg Folic Acid (Folvite) 1 mg PO DAILY [facility] Last Admin: 11/01/17 16:37 Dose: 1 mg Gabapentin (Neurontin) 300 mg PO TID [facility] Last Admin: 11/01/17 20:28 Dose: 300 mg Heparin Sodium (Porcine) (Heparin) 5,000 units SC TID [facility] Last Admin: 11/01/17 20:30 Dose: 5,000 units Hydralazine HCl (Apresoline) 25 mg PO TID [facility] Last Admin: 11/01/17 20:29 Dose: 25 mg Ipratropium [place] (Atrovent) 2.5 ml NEB [id number] [facility] Last Admin: 11/02/17 06:39 Dose: 2.5 ml Lisinopril (Zestril) 40 mg PO BID [facility] Last Admin: 11/01/17 22:12 Dose: 40 mg Minoxidil (Minoxidil) [address] [facility] Last Admin: 11/01/17 20:28 Dose: 20 mg Nitroglycerin (Nitrostat) 0.4 mg PO Q5MIN PRN PRN Reason: Chest Pain Last Admin: 10/31/17 23:43 Dose: 0.4 mg Nortriptyline HCl (Pamelor) [address] [facility] Last Admin: 11/01/17 20:29 Dose: 25 mg Pantoprazole Sodium (Protonix) 40 mg PO DAILY [facility] Last Admin: 11/01/17 16:36 Dose: 40 mg Raltegravir (Isentress) 400 mg PO BID [facility] Last Admin: 11/01/17 20:28 Dose: 400 mg Sevelamer Carbonate (Renvela) 2,400 mg PO TID-[facility] Last Admin: 11/02/17 08:05 Dose: 2,400 mg Terazosin HCl (Hytrin) [address] [facility] Last Admin: 11/01/17 20:27 Dose: 10 mg Tramadol HCl (Ultram) 50 mg PO Q6H PRN PRN Reason: Pain Last Admin: 11/02/17 04:27 Dose: 50 mg Zidovudine (Retrovir) 100 mg PO TID [facility] Last Admin: 11/01/17 20:37 Dose: 100 mg
[2017-11-02 12:57] LABS: #Eosinphils 0.1 thou/uL (0.0-0.7); #Lymphocytes 0.8 thou/uL (1.20-3.40); #Monocytes 0.4 thou/uL (0.11-0.59); %Basophils 0.3 % (0.0-1.0); %Eosinophils 4.5 % (0.0-10.0); %Lymphocytes 24.3 % (21.0-51.0); %Monocytes 10.8 % (0.0-10.0); %Neutrophils 60.1 % (42.0-75.0); Hemoglobin 8.4 g/dL (14.0-18.0); Mean Corpuscular HGB CONC 34.1 g/dL (32.0-36.0); Mean Platelet Volume 6.9 fL (7.4-10.4); Platelet Count 164 thou/uL (130-400); RBC Distribution Width 13.6 % (11.5-14.5); Red Blood Cell (RBC) Count 2.33 mill/uL (4.70-6.10); White Blood Cell (WBC) Count 3.3 thou/uL (4.8-10.8)
[2017-11-02] MEDS: Heparin 5,000 UNITS/ML VIAL SC SCH ×3 (13:12→21:27)
[2017-11-02] MEDS: hydrALAZINE 25 MG TAB PO SCH ×3 (13:13→21:26)
[2017-11-02] MEDS: Amlodipine 10 MG TAB PO SCH (13:18)
[2017-11-02] MEDS: Raltegravir Potassium 400 MG TAB PO SCH ×2 (13:18→21:26)
[2017-11-02] MEDS: Cyanocobalamin (Vitamin B-12) 1,000 MCG TAB PO SCH (13:18)
[2017-11-02] MEDS: Lisinopril 20 MG TAB PO SCH ×2 (13:18→21:24)
[2017-11-02] MEDS: Gabapentin 300 MG CAP PO SCH ×3 (13:19→21:24)
[2017-11-02] MEDS: Folic Acid 1 MG TAB PO SCH (13:19)
[2017-11-02] MEDS: Acetaminophen/Codeine 30-300mg Tablet PO PRN ×2 (13:19→23:11)
[2017-11-02 13:27] LABS: Anion Gap 9 mmol/L (10-20); BUN (Urea Nitrogen) 11 mg/dL (8.4-25.7); Calc. Creatinine Clearance 50 mL/min (70-130); Calcium 9.2 mg/dL (7.8-10.44); Carbon Dioxide 32 mmol/L (23-31); Chloride 97 mmol/L (98-107); Estimated GFR-MDRD 37; Glucose 96 mg/dL (80-115); Potassium 3.1 mmol/L (3.5-5.1); Sodium 135 mmol/L (136-145)
[2017-11-02] MEDS ORDERED: diphenhydrAMINE 50 MG/ML VIAL IVP SCH (15:15)
[2017-11-02] MEDS ORDERED: Hydrocortisone Sod Succ/PF 100 mg/2 ml Vial IVP SCH (15:15)
[2017-11-02] MEDS ORDERED: Famotidine/PF 20 mg/2ml Vial SLOW IVP SCH (15:15)
[2017-11-02] MEDS ORDERED: Famotidine 20 MG TAB PO SCH (15:15)
[2017-11-02] MEDS ORDERED: Famotidine 40 MG/4 ML VIAL SLOW IVP SCH (15:30)
--- NOTE | 2017-11-02 18:36 | CT ---
CT ANGIO OF CHEST PERFORMED WITH INTRAVENOUS CONTRAST ENHANCEMENT WITH 3D RECONSTRUCTIONS: 11/02/17 HISTORY: Chest pain. Patient on dialysis. Premedicated for iodine allergy per the rapid prep protocol. COMPARISON: Prior days nuclear medicine lung scan. An enlarged thyroid, particularly enlarged left lobe of the thyroid with substernal extension consist ent with a goiter. No airway narrowing seen associated with this. There are bibasilar atelectatic renée g changes seen. Also some parenchymal changes in the region of the lingula which appears to be more r elated to scarring. There is no significant mediastinal or hilar adenopathy seen. The main pulmonary arteries appear dilated suggesting some element of pulmonary artery hypertension. The dilatation caus es less than optimal opacification in the more peripheral vessels and peripheral emboli cannot be exc luded. I do not appreciate any evidence of any central embolus. The thoracic aorta is normal in calib er. IMPRESSION: 1. Bibasilar atelectasis with small right pleural effusion. There are also some chronic appearin g changes in the region of the lingula. 2. Dilated pulmonary arteries. No CT evidence for pulmonary embolus. 3. Enlarged thyroid gland with substernal extension of the left lobe of the thyroid. POS: [facility]
[2017-11-02] MEDS: Minoxidil 10 MG TAB PO SCH (21:26)
[2017-11-02] MEDS: Terazosin HCl 5 MG CAP PO SCH (21:26)
[2017-11-02] MEDS: Atorvastatin Calcium 10 MG TAB PO SCH (21:26)
[2017-11-02] MEDS: Nortriptyline HCl 25 MG CAP PO SCH (21:27)
[2017-11-03] MEDS: Ipratropium Bromide 2.5 ml Neb NEB SCH ×5 (00:09→23:45)
[2017-11-03 05:50] LABS: #Monocytes 0.3 thou/uL (0.11-0.59); #Neutrophils 1.4 thou/uL (1.40-6.50); %Basophils 0.4 % (0.0-1.0); %Eosinophils 1.3 % (0.0-10.0); %Lymphocytes 36.1 % (21.0-51.0); %Monocytes 10.7 % (0.0-10.0); %Neutrophils 51.4 % (42.0-75.0); Hemoglobin 8.3 g/dL (14.0-18.0); Mean Corpuscular HGB CONC 32.7 g/dL (32.0-36.0); Mean Corpuscular Hemoglobin 34.7 pg (27.0-31.0); Mean Platelet Volume 7.2 fL (7.4-10.4); Platelet Count 164 thou/uL (130-400); RBC Distribution Width 13.6 % (11.5-14.5); Red Blood Cell (RBC) Count 2.39 mill/uL (4.70-6.10); White Blood Cell (WBC) Count 2.8 thou/uL (4.8-10.8)
[2017-11-03 06:13] LABS: Anion Gap 13 mmol/L (10-20); BUN (Urea Nitrogen) 23 mg/dL (8.4-25.7); Calc. Creatinine Clearance 29 mL/min (70-130); Calcium 9.1 mg/dL (7.8-10.44); Carbon Dioxide 29 mmol/L (23-31); Chloride 97 mmol/L (98-107); Estimated GFR-MDRD 20; Glucose 96 mg/dL (80-115); Potassium 3.9 mmol/L (3.5-5.1); Sodium 135 mmol/L (136-145)
[2017-11-03] MEDS: PROVENTIL INHALER 6.7 G (200 INHALATIONS) INH SCH (07:33)
[2017-11-03] MEDS: Amlodipine 10 MG TAB PO SCH (08:52)
[2017-11-03] MEDS: Lisinopril 20 MG TAB PO SCH ×2 (08:52→20:41)
[2017-11-03] MEDS: Sevelamer Carbonate 800 MG TAB PO SCH ×3 (08:52→17:11)
[2017-11-03] MEDS: Cyanocobalamin (Vitamin B-12) 1,000 MCG TAB PO SCH (08:52)
[2017-11-03] MEDS: Raltegravir Potassium 400 MG TAB PO SCH ×2 (08:52→20:28)
[2017-11-03] MEDS: Heparin 5,000 UNITS/ML VIAL SC SCH ×3 (08:53→20:42)
[2017-11-03] MEDS: Gabapentin 300 MG CAP PO SCH ×3 (08:53→20:28)
[2017-11-03] MEDS: hydrALAZINE 25 MG TAB PO SCH ×3 (08:53→20:27)
[2017-11-03] MEDS: Folic Acid 1 MG TAB PO SCH (08:53)
[2017-11-03] MEDS: Acetaminophen/Codeine 30-300mg Tablet PO PRN ×2 (09:32→15:26)
[2017-11-03] MEDS: traMADol HCl 50 MG TAB PO PRN (15:27)
--- NOTE | 2017-11-03 16:39 | PDOC.PN ---
- Subjective Encounter Start Date: 11/03/17 Encounter Start Time: 16:37 Pt seen for followup re: volume overload. Had a short run of NSVT. Denies chest pain, shortness of breath, fevers or chills. - Objective MAR Reviewed: Yes Vital Signs & Weight: Vital Signs (12 hours) Temp Pulse Pulse Pulse Resp BP BP 11/03/17 15:38 98.3 F 74 16 11/03/17 14:23 68 11/03/17 13:08 68 20 11/03/17 11:50 98.7 F 71 16 11/03/17 10:05 69 68 124/58 L 114/55 L 11/03/17 08:53 70 11/03/17 08:52 70 11/03/17 08:00 96.3 F L 70 18 11/03/17 07:38 72 20 11/03/17 07:37 11/03/17 07:33 72 20 11/03/17 07:31 68 69 137/64 129/61 BP Pulse Ox Pulse Ox Pulse Ox 11/03/17 15:38 131/59 L 90 L 11/03/17 14:23 11/03/17 13:08 11/03/17 11:50 127/60 90 L 11/03/17 10:05 94 L 94 L 11/03/17 08:53 11/03/17 08:52 11/03/17 08:00 137/64 92 L 11/03/17 07:38 94 L 11/03/17 07:37 94 L 11/03/17 07:33 94 L 11/03/17 07:31 92 L 90 L Weight Weight 219 lb 9.286 oz I&O: 11/02/17 11/03/17 11/04/17 06:59 06:59 06:59 Intake Total 1030 970 Output Total 0 0 Balance 1030 970 Result Diagrams: 11/03/17 05:13 11/03/17 05:13 EKG Reviewed by me: Yes (Tele: NSR, NSVT) Phys Exam - Physical Examination Constitutional: NAD HEENT: moist MMs Neck: supple Respiratory: clear to auscultation bilateral Cardiovascular: RRR Gastrointestinal: soft s/p L AKA Neurological: moves all 4 limbs Psychiatric: normal affect Dx/Plan (1) Volume overload Code(s): E87.70 - FLUID OVERLOAD, UNSPECIFIED Status: Acute Comment: Pt to have dialysis today (had yesterday and day before yesterday as well). (2) NSVT (nonsustained ventricular tachycardia) Code(s): I47.2 - VENTRICULAR TACHYCARDIA Status: Acute Comment: Check magnesium level. Potassium normal. Consult cardiology. (3) ESRD (end stage renal disease) on dialysis Code(s): N18.6 - END STAGE RENAL DISEASE; Z99.2 - DEPENDENCE ON RENAL DIALYSIS Status: Chronic Comment: Undergoing dialysis per nephrology service (4) HIV (human immunodeficiency virus infection) Code(s): B20 - HUMAN IMMUNODEFICIENCY VIRUS [HIV] DISEASE Status: Chronic Comment: Continue HAART (5) HTN (hypertension) Code(s): I10 - ESSENTIAL (PRIMARY) HYPERTENSION Status: Chronic Qualifiers: Hypertension type: essential hypertension Qualified Code(s): I10 - Essential (primary) hypertension Comment: titrate antihypertensives as needed - Plan out of bed/ambulate * . Pt has been accepted for Inpatient Rehab. Not discharging today due to NSVT. Review of Systems - Review of Systems Respiratory: negative: Cough, Dry, Shortness of Breath, Hemoptysis, SOB with Excertion, Pleuritic Pain, Sputum, Wheezing Cardiovascular: negative: chest pain, palpitations, orthopnea, paroxysmal nocturnal dyspnea, edema, light headedness - Medications/Allergies Allergies/Adverse Reactions: Allergies Allergy/AdvReac Type Severity Reaction Status Date / Time clindamycin Allergy Intermediate CAUSED Verified 07/27/17 11:21 HYPERKALEMIA iodine Allergy Intermediate ITCHING, Verified 09/18/17 14:43 FELT LUMP IN THROAT paroxetine HCl [From Paxil] Allergy Intermediate PT STATES Verified 07/27/17 11: 21 IT MADE HIM VERY CRAZY IN HEAD ciprofloxacin Allergy Verified 07/27/17 11:21 Medications: Current Medications Acetaminophen (Tylenol) 650 mg PO Q4H PRN PRN Reason: Headache/Fever or Pain Last Admin: 11/02/17 00:14 Dose: 650 mg Acetaminophen (Tylenol) 650 mg [place] Q4H PRN PRN Reason: Headache/Fever or Pain Acetaminophen/Codeine Phosphate (Tylenol #3) 1 tab PO Q4H PRN PRN Reason: Moderate Pain (4-6) Last Admin: 11/03/17 15:26 Dose: 1 tab Albuterol Sulfate (Proventil Hfa) 2 puff INH DAILY-RT [facility] Last Admin: 11/03/17 07:33 Dose: 2 puff Amlodipine Besylate (Norvasc) 10 mg PO DAILY [facility] Last Admin: 11/03/17 08:52 Dose: 10 mg Atorvastatin Calcium (Lipitor) 10 mg PO HS [facility] Last Admin: 11/02/17 21:26 Dose: 10 mg Bisacodyl (Dulcolax) 10 mg PO DAILYPRN PRN PRN Reason: Constipation Last Admin: 11/01/17 20:29 Dose: 10 mg Cyanocobalamin (Vitamin B-12) 1,000 mcg PO DAILY [facility] Last Admin: 11/03/17 08:52 Dose: 1,000 mcg Diphenhydramine HCl (Benadryl) 50 mg IVP .CONTRAST ALERGY [facility] Last Admin: 11/02/17 15:39 Dose: 50 mg Etravirine (Intelence) 200 mg PO BID-PC [facility] Last Admin: 11/03/17 08:52 Dose: 200 mg Folic Acid (Folvite) 1 mg PO DAILY [facility] Last Admin: 11/03/17 08:53 Dose: 1 mg Gabapentin (Neurontin) 300 mg PO TID [facility] Last Admin: 11/03/17 14:23 Dose: 300 mg Heparin Sodium (Porcine) (Heparin) 5,000 units SC TID [facility] Last Admin: 11/03/17 14:23 Dose: 5,000 units Hydralazine HCl (Apresoline) 25 mg PO TID [facility] Last Admin: 11/03/17 14:23 Dose: 25 mg Ipratropium [place] (Atrovent) 2.5 ml NEB [id number] [facility] Last Admin: 11/03/17 13:08 Dose: 2.5 ml Lisinopril (Zestril) 40 mg PO BID [facility] Last Admin: 11/03/17 08:52 Dose: 40 mg Minoxidil (Minoxidil) 20 mg PO HS [facility] Last Admin: 11/02/17 21:26 Dose: 20 mg Nitroglycerin (Nitrostat) 0.4 mg PO Q5MIN PRN PRN Reason: Chest Pain Last Admin: 10/31/17 23:43 Dose: 0.4 mg Nortriptyline HCl (Pamelor) 25 mg PO HS [facility] Last Admin: 11/02/17 21:27 Dose: 25 mg Pantoprazole Sodium (Protonix) 40 mg PO DAILY [facility] Last Admin: 11/03/17 08:52 Dose: 40 mg Raltegravir (Isentress) 400 mg PO BID [facility] Last Admin: 11/03/17 08:52 Dose: 400 mg Sevelamer Carbonate (Renvela) 2,400 mg PO TID-[facility] Last Admin: 11/03/17 12:09 Dose: 2,400 mg Terazosin HCl (Hytrin) 10 mg PO [facility] Last Admin: 11/02/17 21:26 Dose: 10 mg Tramadol HCl (Ultram) 50 mg PO Q6H PRN PRN Reason: Pain Last Admin: 11/03/17 15:27 Dose: 50 mg Zidovudine (Retrovir) 100 mg PO TID [facility] Last Admin: 11/03/17 14:23 Dose: 100 mg
--- NOTE | 2017-11-03 18:03 | PRG ---
DATE OF SERVICE: 11/03/2017 SUBJECTIVE: The patient is seen and examined. PHYSICAL EXAMINATION: VITAL SIGNS: Afebrile with temperature 98.3, pulse 74, respiratory 16, O2 sat 90% with blood pressur e 131/59. HEENT: Unremarkable with moist oral mucosa. NECK: Supple, no conjunctival injection or icterus. CARDIOVASCULAR: First and second heart sounds were heard. RESPIRATORY: Clear to auscultation. DIGESTIVE: Revealed a benign abdomen with positive bowel sounds. EXTREMITIES: No peripheral edema. SKIN: No new gross rash. LYMPHATICS: No peripheral lymphadenopathy. IMPRESSION: 1. End-stage renal disease, hemodialysis dependent. 2. Hypervolemia, status post improvement with ultrafiltration. 3. Generalized weakness. PLAN: 1. The patient to continue dialysis as scheduled. 2. The patient is being worked up for possible rehab placement to undergo physical therapy. 3. Further management to be dependent on the clinical course.
--- NOTE | 2017-11-03 18:50 | CON ---
DATE OF CONSULTATION: 11/03/2017 REASON FOR CONSULTATION: Arrhythmia. HISTORY OF PRESENT ILLNESS: Mr. Villeda is a 62-year-old -[place] gentleman who comes to the hospital for pain all over his body. About a week ago before admission he fell to the ground hit ting the floor in his head in the concrete ground. He was seen in the ER and with CT of the brain th at was unremarkable and discharged home. He states that he has had pain all over his body since then . He was admitted and has been on hemodialysis and observed. On telemetry, he had 4 beats of what a ppears to be a wide complex rhythm this could be artifact as they could not give me the other leads, but this could just also be 4 beats of aberrancy. He was completely asymptomatic. He has had a norm al heart catheterization about 7 months ago. He denies any chest pain, tightness or pressure, no cesar rtness of breath. PAST MEDICAL HISTORY: 1. End-stage renal disease on hemodialysis Monday, , and Monday. 2. Normal coronaries in 03/2017. 3. HIV on HAART. 4. Type 2 diabetes. 5. Anemia of chronic disease. 6. Obstructive sleep apnea. 7. Chronic obstructive pulmonary disease. 8. Diverticulosis. 9. Left above the knee amputation. PAST SURGICAL HISTORY: 1. Dialysis access. 2. Left above the knee amputation. 3. Cholecystectomy. 4. Abdominal hernia repair. 5. Hemorrhoidectomy. 6. Left total knee replacement. 7. Tonsillectomy. 8. Uvulectomy. SOCIAL HISTORY: Former recreational drug user and former smoker. Drinks alcohol occasionally. FAMILY HISTORY: Heart disease in two younger brothers. ALLERGIES: CIPRO, CLINDAMYCIN, IODINE, PAROXETINE. OUTPATIENT MEDICATIONS: Reviewed and unchanged from note. PHYSICAL EXAMINATION: VITAL SIGNS: Temperature 98.3, pulse 74, respiratory rate 16, satting 98% on 3 liters, blood pressur e 131/59. GENERAL: Awake, alert, oriented x3, in no distress. HEENT: Normocephalic and atraumatic. NECK: Supple. LUNGS: Clear. CARDIOVASCULAR: S1, S2, no S3, S4, no murmurs or rubs. ABDOMEN: Soft with positive bowel sounds. EXTREMITIES: No edema. AKA. SKIN: Warm and dry. LABORATORY DATA: Laboratory work was reviewed. CBC, CMP and coags were reviewed. IMAGING DATA: EKG was reviewed and telemetry was reviewed, normal sinus rhythm. He had 4 beats of w araceli complex rhythm, asymptomatic. ASSESSMENT AND PLAN: 1. Nonsustained ventricular tachycardia: This could also be artifact; however, at this point, we wi ll put him on a very low dose beta britni and get an echocardiogram. 2. No further evaluation given normal coronaries in the past. 3. If he can tolerate a beta britni and his echo is unchanged from the last evaluation, no further cardiac workup will be needed. Thank you for letting us to participate in the care of your patient. We will follow.
[2017-11-03] MEDS: Bisacodyl 5 MG TAB PO PRN (20:26)
[2017-11-03] MEDS: Nortriptyline HCl 25 MG CAP PO SCH (20:26)
[2017-11-03] MEDS: Atorvastatin Calcium 10 MG TAB PO SCH (20:27)
[2017-11-03] MEDS: Minoxidil 10 MG TAB PO SCH (20:27)
[2017-11-03] MEDS: Terazosin HCl 5 MG CAP PO SCH (20:28)
[2017-11-04] MEDS: Acetaminophen/Codeine 30-300mg Tablet PO PRN ×3 (00:32→20:49)
[2017-11-04] MEDS: Ipratropium Bromide 2.5 ml Neb NEB SCH ×3 (07:21→18:53)
[2017-11-04] MEDS: PROVENTIL INHALER 6.7 G (200 INHALATIONS) INH SCH (07:37)
[2017-11-04] MEDS: Sevelamer Carbonate 800 MG TAB PO SCH ×3 (08:26→17:07)
[2017-11-04] MEDS: hydrALAZINE 25 MG TAB PO SCH ×3 (08:26→20:47)
[2017-11-04] MEDS: Gabapentin 300 MG CAP PO SCH ×3 (08:26→20:47)
[2017-11-04] MEDS: Heparin 5,000 UNITS/ML VIAL SC SCH ×3 (08:26→20:47)
--- NOTE | 2017-11-04 12:12 | PDOC.PN ---
- Subjective Encounter Start Date: 11/04/17 Encounter Start Time: 12:10 Mr. Villeda was seen today in follow-up. He is complaining of pain in his shoulders hips, sternum. 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 - Objective MAR Reviewed: Yes Vital Signs & Weight: Vital Signs (12 hours) Temp Pulse Resp BP Pulse Ox 11/04/17 08:26 71 11/04/17 08:00 98.3 F 71 20 127/63 99 11/04/17 07:37 68 20 94 L 11/04/17 07:24 94 L 11/04/17 07:21 68 20 94 L 11/04/17 04:00 98.8 F 73 20 118/58 L 93 L 11/04/17 01:18 95 Weight Weight 221 lb 14.4 oz I&O: 11/03/17 11/04/17 11/05/17 06:59 06:59 06:59 Intake Total 970 2450 Output Total 0 Balance 970 2450 Result Diagrams: 11/03/17 05:13 11/03/17 05:13 Phys Exam - Physical Examination HEENT: PERRLA Respiratory: no wheezing, no rales, no rhonchi, clear to auscultation bilateral Cardiovascular: RRR, no significant murmur, no rub Gastrointestinal: soft, non-tender, positive bowel sounds Musculoskeletal: no edema Dx/Plan (1) Chronic pain Code(s): G89.29 - OTHER CHRONIC PAIN Status: Chronic (2) NSVT (nonsustained ventricular tachycardia) Code(s): I47.2 - VENTRICULAR TACHYCARDIA Status: Acute Comment: Check magnesium level. Potassium normal. Consult cardiology. (3) Volume overload Code(s): E87.70 - FLUID OVERLOAD, UNSPECIFIED Status: Acute Comment: Pt to have dialysis today (had yesterday and day before yesterday as well). (4) DM (diabetes mellitus) Code(s): E11.9 - TYPE 2 DIABETES MELLITUS WITHOUT COMPLICATIONS Status: Chronic (5) ESRD (end stage renal disease) on dialysis Code(s): N18.6 - END STAGE RENAL DISEASE; Z99.2 - DEPENDENCE ON RENAL DIALYSIS Status: Chronic Comment: Undergoing dialysis per nephrology service (6) HTN (hypertension) Code(s): I10 - ESSENTIAL (PRIMARY) HYPERTENSION Status: Chronic Qualifiers: Hypertension type: essential hypertension Qualified Code(s): I10 - Essential (primary) hypertension Comment: titrate antihypertensives as needed - Plan * Acute on Chronic pain due to Paget's disease- he says the current medications are not helping, and he has 8/10 pain- will add Meloxicam * Volume overload- resolved with dialysis * Ventricular Arrhythmia- he has been started on a low dose beta-britni- Carvediolol, and awaiting Echo * HTN-blood pressure is stable * ESRD- stable with Dialysis * Awaiting rehab transfer if Echo results are stable.
[2017-11-04] MEDS ORDERED: Meloxicam 7.5 MG TAB PO SCH ×2 (12:45→18:00)
[2017-11-04] MEDS: Lisinopril 20 MG TAB PO SCH ×2 (13:22→20:48)
[2017-11-04] MEDS: Raltegravir Potassium 400 MG TAB PO SCH ×2 (13:22→20:48)
[2017-11-04] MEDS: Cyanocobalamin (Vitamin B-12) 1,000 MCG TAB PO SCH (13:23)
[2017-11-04] MEDS: Carvedilol 3.125 MG TAB PO SCH ×2 (13:23→17:06)
[2017-11-04] MEDS: Amlodipine 10 MG TAB PO SCH (13:23)
[2017-11-04] MEDS: Folic Acid 1 MG TAB PO SCH (13:23)
[2017-11-04] MEDS: traMADol HCl 50 MG TAB PO PRN (15:20)
[2017-11-04] MEDS ORDERED: Heparin 10,000 UNITS/ 10 ML VIAL ONE (17:32)
[2017-11-04] MEDS: Atorvastatin Calcium 10 MG TAB PO SCH (20:47)
[2017-11-04] MEDS: Nortriptyline HCl 25 MG CAP PO SCH (20:48)
[2017-11-04] MEDS: Minoxidil 10 MG TAB PO SCH (20:48)
[2017-11-04] MEDS: Terazosin HCl 5 MG CAP PO SCH (20:49)
[2017-11-05] MEDS: Ipratropium Bromide 2.5 ml Neb NEB SCH ×5 (02:11→23:34)
[2017-11-05] MEDS: PROVENTIL INHALER 6.7 G (200 INHALATIONS) INH SCH (07:38)
[2017-11-05] MEDS: Heparin 5,000 UNITS/ML VIAL SC SCH ×3 (08:14→21:17)
[2017-11-05] MEDS: Raltegravir Potassium 400 MG TAB PO SCH ×2 (08:15→21:19)
[2017-11-05] MEDS: Lisinopril 20 MG TAB PO SCH ×2 (08:15→21:18)
[2017-11-05] MEDS: Sevelamer Carbonate 800 MG TAB PO SCH ×3 (08:15→17:28)
[2017-11-05] MEDS: Cyanocobalamin (Vitamin B-12) 1,000 MCG TAB PO SCH (08:16)
[2017-11-05] MEDS: Gabapentin 300 MG CAP PO SCH ×3 (08:16→21:17)
[2017-11-05] MEDS: Carvedilol 3.125 MG TAB PO SCH ×2 (08:16→17:28)
[2017-11-05] MEDS: hydrALAZINE 25 MG TAB PO SCH ×3 (08:16→21:17)
[2017-11-05] MEDS: Folic Acid 1 MG TAB PO SCH (08:16)
[2017-11-05] MEDS: Meloxicam 7.5 MG TAB PO SCH (08:16)
[2017-11-05] MEDS: Amlodipine 10 MG TAB PO SCH (08:16)
--- NOTE | 2017-11-05 10:34 | PDOC.PN ---
- Subjective Encounter Start Date: 11/05/17 Encounter Start Time: 10:33 Mr. Villeda was seen today in follow-up. He says the pain in his joints, and shoulders, back ect., is better today. His main concern now is getting to Rehab , and also getting a clearance for Thyroid surgery which is panned after discharge. - Objective MAR Reviewed: Yes Vital Signs & Weight: Vital Signs (12 hours) Temp Pulse Resp BP Pulse Ox 11/05/17 08:16 73 11/05/17 07:38 73 20 94 L 11/05/17 07:26 98.4 F 71 18 92 L 11/05/17 07:24 98.4 F 71 18 132/62 92 L 11/05/17 07:21 94 L 11/05/17 07:17 73 20 94 L 11/05/17 04:36 98.3 F 73 20 123/61 92 L 11/05/17 02:11 95 Weight Weight 222 lb I&O: 11/04/17 11/05/17 11/06/17 06:59 06:59 06:59 Intake Total 2450 1500 Output Total 5000 Balance 2450 -3500 Result Diagrams: 11/03/17 05:13 11/03/17 05:13 Phys Exam - Physical Examination HEENT: PERRLA Respiratory: no wheezing, no rales, no rhonchi, clear to auscultation bilateral Cardiovascular: RRR, no significant murmur Gastrointestinal: soft, non-tender, positive bowel sounds Musculoskeletal: edema present trace pedal edema Dx/Plan (1) Chronic pain Code(s): G89.29 - OTHER CHRONIC PAIN Status: Chronic (2) NSVT (nonsustained ventricular tachycardia) Code(s): I47.2 - VENTRICULAR TACHYCARDIA Status: Acute Comment: Check magnesium level. Potassium normal. Consult cardiology. (3) Volume overload Code(s): E87.70 - FLUID OVERLOAD, UNSPECIFIED Status: Acute Comment: Pt to have dialysis today (had yesterday and day before yesterday as well). (4) DM (diabetes mellitus) Code(s): E11.9 - TYPE 2 DIABETES MELLITUS WITHOUT COMPLICATIONS Status: Chronic (5) ESRD (end stage renal disease) on dialysis Code(s): N18.6 - END STAGE RENAL DISEASE; Z99.2 - DEPENDENCE ON RENAL DIALYSIS Status: Chronic Comment: Undergoing dialysis per nephrology service (6) HTN (hypertension) Code(s): I10 - ESSENTIAL (PRIMARY) HYPERTENSION Status: Chronic Qualifiers: Hypertension type: essential hypertension Qualified Code(s): I10 - Essential (primary) hypertension Comment: titrate antihypertensives as needed - Plan * Ventricular Tachycardia- His telemetry strips were reviewed, and I have not noted any recurrence. Continue Carvediolol * Echo results were noted, his EF was 60-65% * Chronic Pain from Paget's- continue Meloxicam- so far good results * ESRD- stable. * HTN- blood pressure is stable * OK to transfer to Rehab when OK with Cardiology
[2017-11-05] MEDS: Atorvastatin Calcium 10 MG TAB PO SCH (21:17)
[2017-11-05] MEDS: Bisacodyl 5 MG TAB PO PRN (21:17)
[2017-11-05] MEDS: Minoxidil 10 MG TAB PO SCH (21:18)
[2017-11-05] MEDS: Terazosin HCl 5 MG CAP PO SCH (21:19)
[2017-11-05] MEDS: Nortriptyline HCl 25 MG CAP PO SCH (21:19)
[2017-11-06] MEDS: Acetaminophen/Codeine 30-300mg Tablet PO PRN (05:03)
[2017-11-06] MEDS: Ipratropium Bromide 2.5 ml Neb NEB SCH ×2 (07:13→13:39)
[2017-11-06] MEDS: PROVENTIL INHALER 6.7 G (200 INHALATIONS) INH SCH (07:27)
--- NOTE | 2017-11-06 08:32 | PDOC.PN ---
- Subjective Encounter Start Date: 11/06/17 Encounter Start Time: 08:28 Mr. Villeda does not have any complaints this morning. - Objective MAR Reviewed: Yes Vital Signs & Weight: Vital Signs (12 hours) Temp Pulse Resp BP BP Pulse Ox 11/06/17 07:14 95 11/06/17 07:13 73 16 95 11/06/17 04:25 98.0 F 74 16 122/68 92 L 11/05/17 23:34 72 16 96 11/05/17 21:18 117/60 11/05/17 21:17 74 117/60 Weight Weight 223 lb I&O: 11/05/17 11/06/17 11/07/17 06:59 06:59 06:59 Intake Total 1500 1590 Output Total 5000 Balance -3500 1590 Result Diagrams: 11/03/17 05:13 11/03/17 05:13 Phys Exam - Physical Examination HEENT: PERRLA Respiratory: no wheezing, no rales, no rhonchi, clear to auscultation bilateral Cardiovascular: RRR, no significant murmur Gastrointestinal: soft, non-tender, positive bowel sounds Musculoskeletal: no edema Dx/Plan (1) Chronic pain Code(s): G89.29 - OTHER CHRONIC PAIN Status: Chronic (2) NSVT (nonsustained ventricular tachycardia) Code(s): I47.2 - VENTRICULAR TACHYCARDIA Status: Acute Comment: Check magnesium level. Potassium normal. Consult cardiology. (3) Volume overload Code(s): E87.70 - FLUID OVERLOAD, UNSPECIFIED Status: Acute Comment: Pt to have dialysis today (had yesterday and day before yesterday as well). (4) DM (diabetes mellitus) Code(s): E11.9 - TYPE 2 DIABETES MELLITUS WITHOUT COMPLICATIONS Status: Chronic (5) ESRD (end stage renal disease) on dialysis Code(s): N18.6 - END STAGE RENAL DISEASE; Z99.2 - DEPENDENCE ON RENAL DIALYSIS Status: Chronic Comment: Undergoing dialysis per nephrology service (6) HTN (hypertension) Code(s): I10 - ESSENTIAL (PRIMARY) HYPERTENSION Status: Chronic Qualifiers: Hypertension type: essential hypertension Qualified Code(s): I10 - Essential (primary) hypertension Comment: titrate antihypertensives as needed (7) Acute on chronic diastolic heart failure Code(s): I50.33 - ACUTE ON CHRONIC DIASTOLIC (CONGESTIVE) HEART FAILURE Status : Acute - Plan * Volume Overload likely from diastolic dysfunction- improved after dialysis * Ventricular Tachycardia- he has not had any recurrences yet- Echo results noted- stable for transfer to Rehab * Paget's disease- improved * ESRD- stable * HTN- blood pressure is stable.
[2017-11-06] MEDS: Sevelamer Carbonate 800 MG TAB PO SCH ×2 (08:35→12:13)
--- NOTE | 2017-11-06 09:39 | DIS ---
DATE OF ADMISSION: 10/31/2017 DATE OF DISCHARGE: 11/06/2017 PRIMARY CARE PHYSICIAN: Dr. Ley, [place] in [place]. DISCHARGE DISPOSITION: To inpatient rehabilitation. DISCHARGE DIAGNOSES: 1. Acute on chronic diastolic heart failure with acute respiratory failure secondary to that. 2. An acute on chronic pain due to Paget's disease. 3. End-stage renal disease on hemodialysis. 4. Ventricular tachycardia. 5. Hypertension. 6. Diabetes mellitus type 2. 7. Obstructive sleep apnea. 8. Chronic obstructive pulmonary disease. 9. Human immunodeficiency virus infection, on HAART. 10. Deconditioning. DISCHARGE MEDICATIONS: Include carvedilol 3.125 mg twice a day as well as Tylenol #3 as needed, Prov entil 2 puffs daily, amlodipine 10 mg daily, vitamin B12 1000 mcg daily, Intelence 200 mg twice a day , folic acid 1 mg daily, gabapentin 300 mg t.i.d., Apresoline 25 mg t.i.d., lisinopril 40 mg twice da carlee, Meloxicam 7.5 mg daily, minoxidil 20 mg at bedtime, nortriptyline 25 mg at bedtime, omeprazole 2 0 mg daily, pravastatin 40 mg daily, Isentress 400 mg twice daily, Renvela 2400 mg t.i.d., Velphoro 5 00 mg t.i.d., Hytrin 10 mg at bedtime, Spiriva 18 mcg daily, Retrovir 100 mg t.i.d. PROCEDURES DONE DURING ADMISSION: The patient had a pulmonary perfusion study which was intermediate probability for PE. The patient had a CT angiogram of the chest showing bibasilar atelectasis with a small right pleural effusion. There were some chronic appearing changes in the region of the lingu la. There was some dilated pulmonary artery, but no evidence of pulmonary embolism. The patient had an echocardiogram which demonstrated an ejection fraction of 60%-65%. There was some flattening of the septum and D-shaped ventricle consistent with right ventricular volume and pressure overload. Th ere was grade I/III diastolic dysfunction, dilated right ventricle. CODE STATUS: FULL CODE. ALLERGIES: Allergic to clindamycin, iodine, paroxetine, and ciprofloxacin. HOSPITAL COURSE: Mr. Villeda is a pleasant 62-year-old gentleman who was admitted to the hospital after having complaints of shortness of breath. He was also hurting all over his body. He was foun d to be volume overloaded, likely as a result of diastolic dysfunction. He is dialysis dependent and therefore additional fluid was taken off during dialysis. He was also complaining of pain. He attr ibutes to Paget's disease which was bone pain. It was not improved with Tylenol #3. Therefore, negron xicam was added with good results. His hospital course was complicated by a short run of ventricular tachycardia. His discharge was held up as a result of this. He was seen by Cardiology. An echocar diogram was obtained and it was recommended that he will be placed on a low dose beta britni and to observe him. No additional workup was done at this time and he is being transferred to the inpatient rehabilitation unit.
[2017-11-06] MEDS: Gabapentin 300 MG CAP PO SCH (09:50)
[2017-11-06] MEDS: Lisinopril 20 MG TAB PO SCH (09:50)
[2017-11-06] MEDS: Raltegravir Potassium 400 MG TAB PO SCH (09:51)
[2017-11-06] MEDS: Meloxicam 7.5 MG TAB PO SCH (09:51)
[2017-11-06] MEDS: hydrALAZINE 25 MG TAB PO SCH (09:51)
[2017-11-06] MEDS: Folic Acid 1 MG TAB PO SCH (09:51)
[2017-11-06] MEDS: Cyanocobalamin (Vitamin B-12) 1,000 MCG TAB PO SCH (09:51)
[2017-11-06] MEDS: Amlodipine 10 MG TAB PO SCH (09:51)
[2017-11-06] MEDS: Carvedilol 3.125 MG TAB PO SCH (09:51)
[2017-11-06] MEDS: Heparin 5,000 UNITS/ML VIAL SC SCH (09:52)
[2017-11-06 10:24] VITALS: TEMP 98.1
[2017-11-06 15:16] VITALS: BP 148/70
--- NOTE | 2017-11-06 17:53 | PRG ---
DATE OF SERVICE: 11/06/2017 SUBJECTIVE: The patient is seen and examined and noted with the following vital signs. PHYSICAL EXAMINATION: VITAL SIGNS: Afebrile with temperature 98.1, pulse 73, respiratory rate of 20, O2 sat 98% with blood pressure 148/70. HEENT: Unremarkable with moist oral mucosa. Neck is supple. No conjunctival injection or icterus. CARDIOVASCULAR SYSTEM: First and second heart sounds were heard. RESPIRATORY SYSTEM: Clear to auscultation. DIGESTIVE SYSTEM: Revealed a benign abdomen with positive bowel sounds. EXTREMITIES: No peripheral edema. SKIN: No new gross rash. LYMPHATICS: No peripheral lymphadenopathy. IMPRESSION: 1. End-stage renal disease, hemodialysis dependent. 2. Generalized weakness, query cause. PLAN: 1. The patient to be dialyzed in accordance with schedule, which is Monday, , and Monday. 2. Further management to be dependent on the clinical course. Patient likely to be discharged to [facility] today.
== END 2017-11-06 14:40 | DRG 291 ==
LOC: ERS 11:29 → 2NO 14:14
PROVIDERS: ADMIT Internal Medicine; ATTEND Internal Medicine
PROC: 5A1D70Z Performance of Urinary Filtration, Intermittent, Less than 6 Hours Per Day (ICD-10-PCS; principal; 2017-11-01)
PROC: [UNRECOGNIZED PROCEDURE] (2017-11-01)
PROC: 5A1D70Z Performance of Urinary Filtration, Intermittent, Less than 6 Hours Per Day (ICD-10-PCS; 2017-11-02)
PROC: 5A1D70Z Performance of Urinary Filtration, Intermittent, Less than 6 Hours Per Day (ICD-10-PCS; 2017-11-04)
DX: I13.2 Hypertensive heart and chronic kidney disease with heart failure and with stage 5 chronic kidney disease, or end stage renal disease (principal); J96.01 Acute respiratory failure with hypoxia; I47.2 Ventricular tachycardia; I50.33 Acute on chronic diastolic (congestive) heart failure; N18.6 End stage renal disease; E11.22 Type 2 diabetes mellitus with diabetic chronic kidney disease; Z99.2 Dependence on renal dialysis; D63.1 Anemia in chronic kidney disease; G47.33 Obstructive sleep apnea (adult) (pediatric); J44.9 Chronic obstructive pulmonary disease, unspecified; K57.90 Diverticulosis of intestine, part unspecified, without perforation or abscess without bleeding; Z89.612 Acquired absence of left leg above knee; F19.11 Other psychoactive substance abuse, in remission; Z87.891 Personal history of nicotine dependence; Z88.8 Allergy status to other drugs, medicaments and biological substances; Z88.1 Allergy status to other antibiotic agents; Z91.041 Radiographic dye allergy status; R07.89 Other chest pain; E78.5 Hyperlipidemia, unspecified; M88.89 Osteitis deformans of multiple sites; G89.29 Other chronic pain; E66.01 Morbid (severe) obesity due to excess calories; Z68.28 Body mass index [BMI] 28.0-28.9, adult; Z21 Asymptomatic human immunodeficiency virus [HIV] infection status
CPT/HCPCS: 36415; 36416; 71045; 71275; 78582; 80048; 80053; 80076; 82553; 83735; 84484; 85025; 85379; 87340; 90471; 90670; 90935; 93005; 93010; 93306; 94640; 94760; A4216; A9540; A9558; G0009; G0257; G8978-GP-CM; G8979-GP-CK; G8987-GO-CK; G8988-GO-CI; J1200; J1644; J1720; J7644; S0028

== ENCOUNTER 2018-04-06 08:07 | Day surgery (SDC) | payer MEDICARE ==
[2018-04-06] MEDS ORDERED: Acetaminophen/Codeine 30-300mg Tablet PO PRN (11:50)
[2018-04-06 15:50] VITALS: BP 169/80; TEMP 98.2
== END 2018-04-06 16:19 | disposition home or self-care (01) ==
LOC: ONC/OP 08:07 → ONC 08:20 → ONC/OP 16:19
PROVIDERS: ATTEND Internal Medicine Nephrology
DX: D64.9 Anemia, unspecified (principal)
CPT/HCPCS: 36415; 36430; 86850; 86900; 86901; P9016

== ENCOUNTER 2018-09-26 15:20 | Inpatient (IN) | payer MEDICARE ==
--- NOTE | 2018-09-26 16:00 | RAD ---
RIGHT SHOULDER THREE VIEWS: History: Fall, right shoulder pain. FINDINGS/IMPRESSION: No acute fracture or dislocation is seen. There is resorption versus surgical resection of the right distal clavicle. POS: [facility]
[2018-09-26 16:49] LABS: Actual Bicarbonate (HCO3a) 27.2 mEq/L (22-28); Analyzer IN Cardio ER; Base Excess (BEa) 2.5 mEq/L (-2.0 to +3.0); CO2 Tension 42.5 mmHg (35.0-45.0); Calcium, Ionized 1.12 mmol/L (1.12-1.30); Hemoglobin (Hb) 9.7 g/dL (14.0-18.0); O2 Tension (PaO2) 62.9 mmHg (> 80.0); Potassium - ABG Lab 4.95 mmol/L (3.70-5.30); pH, Arterial 7.42 (7.35-7.45)
[2018-09-26 16:50] LABS: Puncture Site RRA
--- NOTE | 2018-09-26 16:50 | CT ---
HEAD CT WITHOUT CONTRAST: 09/26/18 HISTORY: Trauma. Loss of balance. COMPARISON: 10/26/17 FINDINGS: No parenchymal hemorrhage. No extra-axial hematoma. No midline shift. Basilar cisterns are patent. Ag e appropriate atrophy. Cortical gonzalez-white matter differentiation is preserved. Ventricles and sulci are patent and symmetric. Calvarium is intact. Adequate aeration of the sinuses and mastoid air cells. There is cavernous carotid atherosclerosis. IMPRESSION: No acute intracranial process. POS: [facility]
[2018-09-26 17:22] LABS: Hemoglobin 9.4 g/dL (14.0-18.0); Mean Corpuscular HGB CONC 31.5 g/dL (32.0-36.0); Mean Corpuscular Hemoglobin 36.6 pg (27.0-31.0); Mean Platelet Volume 8.6 fL (7.4-10.4); Platelet Count 96 thou/uL (130-400); RBC Distribution Width 14.4 % (11.5-14.5); Red Blood Cell (RBC) Count 2.56 mill/uL (4.70-6.10); White Blood Cell (WBC) Count 3.6 thou/uL (4.8-10.8)
--- NOTE | 2018-09-26 17:24 | RAD ---
PORTABLE AP CHEST X-RAY 09/26/18 HISTORY: Dyspnea. COMPARISON: 10/31/17. FINDINGS: The cardiac silhouette is enlarged and magnified by patient rotation. There are parenchymal changes s een at the right lung base which could be related to either atelectasis or pneumonia. There is subopt imal evaluation of the left lung base due to technique of the exam. Pulmonary vasculature is within n ormal limits. A CT injectable right internal jugular vein Mediport catheter is noted in place. Vascul ar calcification of the thoracic aorta. No other interval change. IMPRESSION: 1. Patchy parenchymal changes right lung base and probable parenchymal changes at the left lung base, although the left lung base is not well evaluated. Findings could be related to bibasilar pneum onia or aspiration pneumonitis. Followup to complete resolution is recommended. 2. Cardiomegaly. POS: [facility]
[2018-09-26] MEDS ORDERED: Dexamethasone 4 mg/ml Vial ONE (17:29)
[2018-09-26] MEDS ORDERED: Cefepime 2 GM VIAL ONE (17:29)
[2018-09-26 17:34] LABS: Lymphocytes 39 % (21-51); MDiff Complete? YES; Macrocytosis SLIGHT = 6-15 cells (100X) (0-5/hpf); Monocytes 15 % (0-10); Neutrophil 45 % (42-75); Platelet Morphology Comment Appears Decreased; Polychromasia SLIGHT = 2-3 cells (100X) (0-2/hpf)
[2018-09-26 17:40] LABS: ALT (SGPT) 11 U/L (8-55); AST (SGOT) 21 U/L (5-34); Albumin 3.5 g/dL (3.4-4.8); Alkaline Phosphatase 153 U/L (40-150); Anion Gap 17 mmol/L (10-20); BUN (Urea Nitrogen) 42 mg/dL (8.4-25.7); Bilirubin, Total 0.9 mg/dL (0.2-1.2); CK (CPK) 80 U/L (30-200); Calc. Creatinine Clearance 0 mL/min (70-130); Calcium 9.6 mg/dL (7.8-10.44); Carbon Dioxide 26 mmol/L (23-31); Chloride 92 mmol/L (98-107); Estimated GFR-MDRD 17; Globulin 4.1 g/dL (2.4-3.5); Glucose 83 mg/dL (80-115); Lipase 6 U/L (8-78); Potassium 5.1 mmol/L (3.5-5.1); Protein, Total 7.6 g/dL (5.8-8.1); Sodium 130 mmol/L (136-145)
[2018-09-26 18:01] LABS: CKMB 1.5 ng/mL (0-6.6)
[2018-09-26] MEDS ORDERED: Sulfamethoxazole/Trimethoprim 200 MG in Dextrose 5% in Water 125 ML IVPB SCH (18:30)
--- NOTE | 2018-09-26 19:36 | CT ---
CT OF CHEST PERFORMED WITHOUT CONTRAST ENHANCEMENT: 09/26/18 HISTORY: Chest pain status post fall. The lungs show atelectatic change in the lung bases. The heart size is markedly enlarged. There is some motion artifact which degrades rib detail, but I do not see any definite rib fractures. There is a markedly enlarged thyroid gland, particularly the left lobe with substernal extension. The thoracic aorta appears normal in caliber. The bones appear moderately sclerotic which would indicate possibly underlying renal osteodystrophy. Less likely sclerotic bone mets. There is no signs of any compression fractures. IMPRESSION: 1. Marked cardiomegaly with prominent lower lobe pulmonary arteries. Bibasilar atelectasis is pr esent. No signs of rib fractures or any vertebral body fractures. 2. Incidental note is made of multiple hypodensities within small kidneys most likely cysts. POS: [facility]
[2018-09-26 21:18] LABS: CKMB 1.5 ng/mL (0-6.6)
[2018-09-26] MEDS ORDERED: cloNIDine 0.1 MG TAB ONE ×2 (22:14→22:38)
[2018-09-26] MEDS ORDERED: Ondansetron PF 4 MG/2 ML Vial IVP PRN (23:03)
[2018-09-26] MEDS ORDERED: Ondansetron ODT 4 MG TAB PO PRN (23:03)
[2018-09-27] MEDS ORDERED: HOLD VANCOMYCIN FOR LEVEL >20 FS SCH (00:30)
[2018-09-27] MEDS ORDERED: Vancomycin HCl 750 MG in Sodium Chloride 0.9% 250 ML 250 ML IVPB SCH (00:30)
[2018-09-27] MEDS ORDERED: Vancomycin HCl 1 GM in Premix Bag 1 BAG IVPB SCH (00:30)
[2018-09-27] MEDS ORDERED: Vancomycin HCl 500 MG in Sodium Chloride 0.9% 100 ML IVPB SCH (00:30)
[2018-09-27] MEDS ORDERED: Vancomycin Sliding Scale 1 EACH FS ONE (00:30)
[2018-09-27] MEDS ORDERED: Vancomycin HCl 1.25 GM in Sodium Chloride 0.9% 250 ML 250 ML IVPB SCH (00:30)
[2018-09-27 00:43] VITALS: BMI 23.4
[2018-09-27 01:07] LABS: CKMB 1.7 ng/mL (0-6.6)
--- NOTE | 2018-09-27 03:43 | HP ---
PRIMARY CARE DOCTOR: At [facility]. HISTORY OF PRESENT ILLNESS: The patient is a 63-year-old male patient with past medical history positive for hypertension; end-stage renal disease, on hemodialysis; follows with Dr. Barrera; HIV; hyperlipidemia, came to the hospital after having an episode of fall. The patient reported that he also have some associated loss of consciousness that was transitory, the patient has recovered well to his baseline mental status. He reported that he has been feeling generalized weakness and he does not know what has been the reason for it as the patient has a history of HIV, does not remember his last CD4 count, initially was told the patient may have what sounded as lung infection and Dr. Morris has been consulted. The patient has been started on antibiotics that we will continue for now. We will follow Dr. Morris' recommendation. The patient also was reportedly hypoxic. He is on home oxygen , but the symptoms have improved. No clear triggers. No alleviating factors. Symptoms were severe. REVIEW OF SYSTEMS: CONSTITUTIONAL: The patient had no fever or chills. The patient reports generalized weakness. RESPIRATORY: Some cough and shortness of breath. CARDIOVASCULAR: No chest pain. No palpitations. GASTROINTESTINAL: No nausea. No vomiting, diarrhea, or abdominal pain. 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 GENITOURINARY: No burning on urination. EXTREMITIES: Leg swelling. All other systems were reviewed and negative except for the findings mentioned above. PAST MEDICAL HISTORY: Positive and mentioned as in HPI. PAST SURGICAL HISTORY: Positive for amputation of the left lower extremity in 2010 due to staph infection, left total knee replacement, hernia repair, and tonsillectomy. PSYCH HISTORY: No previous psych history. FAMILY HISTORY:Reviewed and non contributory to current presentation. SOCIAL HISTORY: The patient drinks socially twice a month. Former drug user, abuse cocaine, abuse marijuana. The patient is a former tobacco user with smoking more than 10 years. ALLERGIES: CIPRO, CLINDAMYCIN, PAROXETINE, PAXIL. REPORTED MEDICATIONS: 1. Renvela. 2. Calcium lactate. 3. Nortriptyline. 4. Omeprazole. 5. Lisinopril. 6. Amlodipine. 7. Isentress. 8. Minoxidil. 9. Hydralazine. 10. Terazosin. 11. Pravastatin. 12. Spiriva with hand inhaler. 13. Prednisone. 14. Zantac. 15. Benadryl. 16. Naprosyn. PHYSICAL EXAMINATION: VITAL SIGNS: On presentation blood pressure 181/98 with heart rate 83, respiratory rate was 16, temperature 97.8, oxygen saturation was 92% on room air. GENERAL APPEARANCE: The patient is alert, oriented, reported generalized weakness. HEENT: Eyes, normal conjunctiva. Moist oral mucosa. Anicteric. No JVD. RESPIRATORY: Bilateral air entry. No rales. No wheezing. Symmetric expansion. CARDIOVASCULAR: Normal rate, regular rhythm. No murmurs. No gallops. No edema. ABDOMEN: Soft. Normal bowel sounds. MUSCULOSKELETAL: Baseline range of motion and strength. No tenderness. SKIN: Warm, intact. No pallor. No rash. No redness. Peripheral pulses are present. Capillary refill seems to be intact. NEUROLOGIC: No evidence of any new focal weakness. Baseline speech. Cranial nerves seems to be intact. PSYCH: The patient has good mood. No anxiety. Optimal judgment. IMAGING DATA: EKG was reviewed. The patient has normal sinus rhythm, right axis deviation, possible right ventricular hypertrophy, ST-T wave abnormality, consider anterolateral ischemia, prolonged QT. Shoulder x-ray; no acute fracture or dislocation is seen. There is resorption versus surgical resection of the right distal clavicle. CT head, no intracranial process. Chest x-ray, patchy parenchymal change in the right lung base and probably parenchymal changes at the left lung base, although the lung base is not well evaluated. The finding could be related to bibasilar pneumonia or aspiration pneumonitis. Followup to complete resolution is recommended. The patient does have cardiomegaly. Chest CT was done. The patient has marked cardiomegaly with prominent lower lobe pulmonary artery. Bibasilar atelectasis is present. No sign of vertebral or rib fractures. Incidental note is made of multiple hypodensities within normal with his small kidneys, most likely cyst. LABORATORY DATA: Labs were reviewed. The patient has white count 3.6, hemoglobin 9.4, MCV 116, platelet count 96. Blood gas was done. The patient had pH 7.42, pCO2 of 42.5 and oxygen 62.9 that was on nasal cannula 1 L. Sodium 130, potassium 5.1, chloride 92, carbon dioxide 26, anion gap 17, BUN 42, creatinine 4.36, GFR 70, glucose 83, calcium 9.6, total bilirubin 0.9. LFTs were normal. Alkaline phosphatase 153. Troponin was initially 0.100, 0.110, and third one 0.085. Beta natriuretic peptide was 4833. Albumin 3.5. ASSESSMENT AND PLAN: The patient will be placed in the hospital with following medical problem: 1. Episode of syncope. The patient has an episode of passing out, we will do echo, carotid Doppler. Monitor on tele. 2. Pancytopenia. This is likely secondary to HIV infection. The patient will need to follow with Dr. Morris as outpatient. 3. Possible left lower lobe pneumonia, seen on the CAT scan. The patient is receiving antibiotics. Dr. Morris will call for the ER. Antibiotics were reconciled and we will continue same treatment for now. Might need ID evaluation to help us in treating the patient. 4. Hyponatremia, sodium 128. This is moderate. We will monitor. We will adjust treatment accordingly. 5. Indeterminate troponin. The patient's troponin 0.1, 0.11, 0.85, this is likely secondary to end-stage renal disease and the same applies for the high proBNP. 6. Hypertensive urgency. We will reconcile home medications and treat accordingly when he is on p.r.n. medications for optimal control. 7. End-stage renal disease, on hemodialysis. The patient follows with Dr. Barrera. We will need inpatient consult for dialysis arrangement. 8. Hyperlipidemia, reconcile home medications. Low-cholesterol diet is advised. 9. Hyponatremia, sodium 130. This is mild, we will monitor, we will treat accordingly. Risk assessment: high risk due to acute changein neurological status due to syncope Job ID: [id number] [facility]
[2018-09-27 06:43] LABS: Anion Gap 18 mmol/L (10-20); BUN (Urea Nitrogen) 57 mg/dL (8.4-25.7); Calc. Creatinine Clearance 18 mL/min (70-130); Calcium 8.9 mg/dL (7.8-10.44); Carbon Dioxide 27 mmol/L (23-31); Chloride 95 mmol/L (98-107); Estimated GFR-MDRD 14; Glucose 115 mg/dL (80-115); Potassium 5.1 mmol/L (3.5-5.1); Sodium 135 mmol/L (136-145)
[2018-09-27 07:14] LABS: Mean Corpuscular HGB CONC 32.4 g/dL (32.0-36.0); Mean Corpuscular Hemoglobin 37.7 pg (27.0-31.0); Mean Platelet Volume 8.6 fL (7.4-10.4); Platelet Count 76 thou/uL (130-400); RBC Distribution Width 14.5 % (11.5-14.5); Red Blood Cell (RBC) Count 2.38 mill/uL (4.70-6.10); White Blood Cell (WBC) Count 3.2 thou/uL (4.8-10.8)
[2018-09-27 07:48] LABS: Band 1 % (5-11); Lymphocytes 44 % (21-51); MDiff Complete? YES; Macrocytosis MODERATE=16-30 cells (100X) (0-5/hpf); Monocytes 10 % (0-10); Neutrophil 45 % (42-75); Nucleated RBC 1 % (0); Platelet Morphology Comment Appears Decreased; Polychromasia SLIGHT = 2-3 cells (100X) (0-2/hpf); Schistocytes SLIGHT = 2-5 cells (100X) (0-1/hpf)
[2018-09-27] MEDS ORDERED: Heparin 5,000 UNITS/ML VIAL SC SCH (09:00)
--- NOTE | 2018-09-27 09:13 | ULT ---
CAROTID ULTRASOUND WITH RENEE SCALE AND DOPPLER DUPLEX COLOR FLOW IMAGING SPECTRAL ANALYSIS PERFORMED: CLINICAL INDICATION: Syncope. FINDINGS: There is scattered mild atherosclerotic calcification of the carotid arteries. PEAK SYSTOLIC VELOCITY (CM/S): Right CCA 2 Left CCA 60 Right ICA 64 Left ICA 63 There is antegrade bilateral flow within the visualized bilateral vertebral arteries. IMPRESSION: 1. No hemodynamically significant stenosis of the right internal carotid artery. 2. No hemodynamically significant stenosis of the left internal carotid artery. POS: [facility]
--- NOTE | 2018-09-27 14:13 | CON ---
DATE OF CONSULTATION: CONSULTING PHYSICIAN: Bruce Archuleta MD. REASON FOR CONSULTATION: Need for maintenance hemodialysis. IMPRESSION: 1. End-stage renal disease, hemodialysis dependent, Monday, , and Monday due for dialysis today. 2. Recent diagnosis of esophageal carcinoma, status post chemo radiotherapy. PLAN: 1. The patient to be dialyzed today in accordance with the schedule. 2. Further management to be dependent on the clinical course. HISTORY OF PRESENT ILLNESS: A 63-year-old gentleman with end-stage renal disease, hemodialysis dependent, who took a fall from his wheelchair, presented here to be evaluated for syncope. The patient is due for dialysis today as well as in need of renal consultation. PAST MEDICAL HISTORY: Significant for HIV, dyslipidemia, end-stage renal disease, hypertension, recent diagnosis of esophageal CA, status post chemo radiotherapy, history of GI bleeding in the context of esophageal carcinoma. REVIEW OF SYSTEMS: As documented in the body of the history. All other systems were reviewed and were found not to be significantly related to present illness. SOCIAL HISTORY: Denies alcohol or illicit drug use. ALLERGIES: CIPRO, CLINDAMYCIN, AND PAROXETINE. MEDICATIONS: Reviewed and as documented on [employer]. PHYSICAL EXAMINATION: GENERAL: The patient was found not to be in any obvious distress, hemodynamically stable. VITAL SIGNS: Blood pressure of 166/80, respiratory rate of 16, and O2 saturation of 92%. HEENT: Unremarkable. CARDIOVASCULAR: First and second heart sounds were heard. RESPIRATORY: Clear to auscultation. DIGESTIVE: Revealed a benign abdomen. Positive bowel sounds. EXTREMITIES: No peripheral edema. SKIN: No new gross rash. LYMPHATICS: No peripheral lymphadenopathy. SUMMARY: A 63-year-old gentleman with end-stage renal disease, hemodialysis dependent, who presented here status post fall. Thank you for this consultation. We will follow with you. Job ID: [id number]
[2018-09-27] MEDS ORDERED: Cefepime 1 GM in Sodium Chloride 0.9% 100 ML IVPB SCH (17:00)
[2018-09-27] MEDS: Gabapentin 300 MG CAP PO SCH ×2 (17:08→20:32)
[2018-09-27] MEDS: hydrALAZINE 25 MG TAB PO SCH ×2 (17:08→20:32)
[2018-09-27] MEDS: Sevelamer Carbonate 800 MG TAB PO SCH (17:09)
[2018-09-27] MEDS: Carvedilol 3.125 MG TAB PO SCH (17:10)
--- NOTE | 2018-09-27 17:39 | PDOC.PN ---
- Subjective Encounter Start Date: 09/27/18 Encounter Start Time: 16:00 Mr. Villeda was seen today in follow-up of syncope, and probable pneumonia. His main complaint now, is that his room is too hot. He also notes a sore throat , but otherwise he is ok. He denies cough or congestion, no chest pain or shortness of breath. He clarified the episode which brought him into the hospital. He says he was nodding off in his chair, because he was very sleepy, and then fell asleep, and fell onto the floor. He says it was when he fell that he was' knocked out". After further discussion he tells me he has a diagnosis of sleep apnea, and that his CPAP machine has not been functional for several months. He also says he sees a Dr. Redmond at the [facility] for his HIV. He says he has had recent lab work, in which his viral load was undetectable, and he ahs been doing well with regards to his HIV. - Objective Resuscitation Status - Order Detail: 09/26/18 23:03 Resuscitation Status Routine Resuscitation Status: FULL: Full Resuscitation MAR Reviewed: Yes Vital Signs & Weight: Vital Signs (12 hours) Temp Pulse Resp BP Pulse Ox 09/27/18 17:08 69 09/27/18 16:00 97.5 F L 69 20 165/90 H 93 L 09/27/18 07:39 97.7 F 73 20 177/101 H 94 L Weight Weight 182 lb 7 oz Result Diagrams: 09/27/18 06:15 09/27/18 06:15 Phys Exam - Physical Examination HEENT: PERRLA Respiratory: no wheezing, no rales, no rhonchi, clear to auscultation bilateral Cardiovascular: RRR, no significant murmur, no rub Gastrointestinal: soft, non-tender, no distention, positive bowel sounds Musculoskeletal: no edema, pulses present Dx/Plan (1) Syncope Code(s): R55 - SYNCOPE AND COLLAPSE Status: Acute (2) Fall Code(s): W19.XXXA - UNSPECIFIED FALL, INITIAL ENCOUNTER Status: Acute (3) DM (diabetes mellitus) Code(s): E11.9 - TYPE 2 DIABETES MELLITUS WITHOUT COMPLICATIONS Status: Chronic (4) ESRD (end stage renal disease) on dialysis Code(s): N18.6 - END STAGE RENAL DISEASE; Z99.2 - DEPENDENCE ON RENAL DIALYSIS Status: Chronic Comment: Undergoing dialysis per nephrology service (5) HIV (human immunodeficiency virus infection) Code(s): B20 - HUMAN IMMUNODEFICIENCY VIRUS [HIV] DISEASE Status: Chronic Comment: Continue HAART (6) HTN (hypertension) Code(s): I10 - ESSENTIAL (PRIMARY) HYPERTENSION Status: Chronic Qualifiers: Hypertension type: essential hypertension Qualified Code(s): I10 - Essential (primary) hypertension Comment: titrate antihypertensives as needed - Plan * Syncope- likely due to the fall- he may have suffered a minor concussion, His CT scan was negative for bleed * IVONNE- currently untreated- this likely lead up to the current illness * Pneumonia- probable community acquired- he does not appear to be symptomatic from this- will change his antibiotics to Omnicef in the AM * Cardiomyopathy- await echo results * Elevated troponins- in review of his records, this is chronic, he had a cardiac cath in 2017 which was negative for coronary artery disease, and his Troponin were elevated at that time * ESRD- stable * HIV- stable- continue HAART * I suspect he can be discharged home tomorrow if there are no significant changes in his Echo .
[2018-09-27] MEDS: Ipratropium Bromide 2.5 ml Neb NEB SCH (18:43)
[2018-09-27] MEDS: Acetaminophen 325 MG TAB PO PRN (18:57)
[2018-09-27] MEDS: Lisinopril 20 MG TAB PO SCH (20:33)
[2018-09-27] MEDS: Raltegravir Potassium 400 MG TAB PO SCH (20:34)
[2018-09-27] MEDS ORDERED: Nortriptyline HCl 25 MG CAP PO SCH (21:00)
[2018-09-27] MEDS ORDERED: Minoxidil 10 MG TAB PO SCH (21:00)
[2018-09-27] MEDS ORDERED: Terazosin HCl 5 MG CAP PO SCH (21:00)
[2018-09-27] MEDS ORDERED: Atorvastatin Calcium 10 MG TAB PO SCH (21:00)
[2018-09-28] MEDS: Ipratropium Bromide 2.5 ml Neb NEB SCH ×3 (00:25→11:40)
[2018-09-28] MEDS ORDERED: CALCIUM LACTATE 650 MG PO SCH (09:00)
[2018-09-28] MEDS ORDERED: Amlodipine 10 MG TAB PO SCH (09:00)
[2018-09-28] MEDS: Lisinopril 20 MG TAB PO SCH (09:30)
[2018-09-28] MEDS: Gabapentin 300 MG CAP PO SCH (09:33)
[2018-09-28] MEDS: Raltegravir Potassium 400 MG TAB PO SCH (09:33)
[2018-09-28] MEDS: Sevelamer Carbonate 800 MG TAB PO SCH ×2 (09:33→12:57)
[2018-09-28] MEDS: hydrALAZINE 25 MG TAB PO SCH (09:34)
[2018-09-28] MEDS: Carvedilol 3.125 MG TAB PO SCH (09:34)
[2018-09-28] MEDS: Acetaminophen 325 MG TAB PO PRN (10:30)
--- NOTE | 2018-09-28 10:47 | PDOC.PN ---
- Subjective Encounter Start Date: 09/28/18 Encounter Start Time: 10:45 Mr. Villeda was seen today in follow-up of syncope. He does not have any new complaints other than a sore throat. - Objective Resuscitation Status - Order Detail: 09/26/18 23:03 Resuscitation Status Routine Resuscitation Status: FULL: Full Resuscitation MAR Reviewed: Yes Vital Signs & Weight: Vital Signs (12 hours) Temp Pulse Resp BP BP Pulse Ox 09/28/18 09:34 86 121/68 09/28/18 09:33 86 121/68 09/28/18 09:30 121/68 09/28/18 08:00 96 09/28/18 07:32 98.4 F 74 18 157/84 H 96 09/28/18 06:49 79 22 H 95 09/28/18 03:57 97.9 F 70 16 131/83 100 09/28/18 00:25 75 20 96 09/28/18 00:00 98.6 F 68 18 160/94 H 93 L Weight Weight 182 lb 7 oz Result Diagrams: 09/27/18 06:15 09/27/18 06:15 Phys Exam - Physical Examination HEENT: PERRLA Respiratory: no wheezing, no rales, no rhonchi, clear to auscultation bilateral Cardiovascular: RRR, no significant murmur, no rub Gastrointestinal: soft, non-tender, no distention, positive bowel sounds Musculoskeletal: no edema Dx/Plan (1) Syncope Code(s): R55 - SYNCOPE AND COLLAPSE Status: Acute (2) Fall Code(s): W19.XXXA - UNSPECIFIED FALL, INITIAL ENCOUNTER Status: Acute (3) DM (diabetes mellitus) Code(s): E11.9 - TYPE 2 DIABETES MELLITUS WITHOUT COMPLICATIONS Status: Chronic (4) ESRD (end stage renal disease) on dialysis Code(s): N18.6 - END STAGE RENAL DISEASE; Z99.2 - DEPENDENCE ON RENAL DIALYSIS Status: Chronic Comment: Undergoing dialysis per nephrology service (5) HIV (human immunodeficiency virus infection) Code(s): B20 - HUMAN IMMUNODEFICIENCY VIRUS [HIV] DISEASE Status: Chronic Comment: Continue HAART (6) HTN (hypertension) Code(s): I10 - ESSENTIAL (PRIMARY) HYPERTENSION Status: Chronic Qualifiers: Hypertension type: essential hypertension Qualified Code(s): I10 - Essential (primary) hypertension Comment: titrate antihypertensives as needed - Plan * Syncope- as previous- I suspect he likely just fell asleep, due to untreated sleep apnea. * HTN- blood pressure is stable * DM- blood glucose is stable. * Stable for discharge
--- NOTE | 2018-09-28 11:16 | PRG ---
DATE OF SERVICE: 09/28/2018 SUBJECTIVE: The patient is seen and examined with no new complaint. Noted with the following vital signs. OBJECTIVE: VITAL SIGNS: Afebrile, temperature 98.4, pulse 86, respiratory rate of 18, blood pressure 121/68, and O2 saturations 96%. HEENT: Unremarkable. CARDIOVASCULAR SYSTEM: First and second heart sounds were heard. RESPIRATORY SYSTEM: Clear to auscultation. DIGESTIVE SYSTEM: Revealed a benign abdomen. EXTREMITIES: No peripheral edema. SKIN: No new gross rash. LYMPHATICS: No peripheral lymphadenopathy. IMPRESSION: 1. End-stage renal disease, on hemodialysis, successfully dialyzed yesterday. 2. Syncope, query cause, likely primary physician noted. This might be in the context of untreated sleep apnea. 3. Recent diagnosis of esophageal carcinoma status post chemoradiotherapy. PLAN: 1. The patient to continue with current regimen of hemodialysis. There is no emergent indication for renal replacement therapy. 2. Further management will be dependent on the clinical course. Condition of patient at this time of dictation seems good. Job ID: [id number]
[2018-09-28 11:46] VITALS: BP 129/71; TEMP 99.7
--- NOTE | 2018-09-28 21:56 | DIS ---
DATE OF ADMISSION: 09/26/2018 DATE OF DISCHARGE: 09/28/2018 PRIMARY CARE PHYSICIAN: Dr. João Crowder. DISCHARGE DISPOSITION: Home. PRIMARY DISCHARGE DIAGNOSES: 1. Obstructive sleep apnea, uncontrolled. 2. End-stage renal disease, on hemodialysis. 3. Hypertension. 4. Pancytopenia, likely secondary to HIV. 5. History of chronic diastolic heart failure. DISCHARGE MEDICATIONS: Include: 1. Pravastatin 40 mg at bedtime. 2. Pamelor 25 mg daily. 3. Coreg 3.125 mg twice a day. 4. Retrovir 100 mg t.i.d. 5. Spiriva 18 mcg inhaled daily. 6. Hytrin 10 mg at bedtime. 7. Renvela 2400 mg 3 times a day. 8. Isentress 400 mg twice daily. 9. Omeprazole 20 mg daily. 10. Minoxidil 20 mg at bedtime. 11. Lisinopril 40 mg twice a day. 12. Hydralazine 25 mg t.i.d. 13. Gabapentin 300 mg t.i.d. 14. Intelence 200 mg twice daily. 15. Calcium lactate 650 mg daily. 16. Amlodipine 10 mg daily. PROCEDURES DONE DURING THE ADMISSION: The patient had a CT scan of the brain, which was negative for any acute intracranial process. He also had an x-ray of his shoulder showing no fracture dislocation. The patient had a CT scan of the chest showing marked cardiomegaly and there was some bibasilar atelectasis. There was no rib fractures. The patient had an echocardiogram showing an ejection fraction of 50% to 55%. There was some moderate mitral regurgitation and moderate enlargement of the right atrial size and bilateral carotid Dopplers, which were negative for any hemodynamically significant stenosis. CODE STATUS: Full code. ALLERGIES: TO CLINDAMYCIN, IODINE, PAROXETINE, AND CIPROFLOXACIN. HOSPITAL COURSE: Mr. Villeda is a pleasant 63-year-old gentleman, who presented to the emergency room after he says that he had a fall and syncopal episode at home. It was originally thought that he syncopized but after discussion with the patient, it appears as if he was nodding off because he was sleepy and then just basically fell out of his wheelchair. Also in further discussion, it was found that he has not had use of his CPAP machine because it is broken for several months. This likely caused him to have severe daytime sleepiness, which could explain his nodding off and then the subsequent fall. The testing done during his hospital stay was all essentially negative. He did have a slightly elevated troponin but however with reviewing his records, this is a chronic condition for him dating back over a year. He also had a cardiac catheterization in 2017, which was negative for any flow-limiting disease. There was no evidence of any pneumonia and therefore, this was essentially ruled out. By the time I saw him, he was essentially back to his baseline. Therefore, the patient will be discharged home today. Job ID: [id number]
--- NOTE | 2018-09-29 05:43 | PRG ---
DATE OF SERVICE: 09/29/2018 Job ID: [id number]
[2018-09-29 17:09] LABS: HIV-1 Quantitative, RNA PCR <20 copies/mL (.)
== END 2018-09-28 15:20 | disposition home or self-care (01) | DRG 154 ==
LOC: ERS 15:20 → ERHOLD 18:46 → 2SE 09-27 00:05
PROVIDERS: ADMIT Emergency Medicine; ATTEND Emergency Medicine
PROC: 5A1D70Z Performance of Urinary Filtration, Intermittent, Less than 6 Hours Per Day (ICD-10-PCS; principal; 2018-09-27)
DX: G47.33 Obstructive sleep apnea (adult) (pediatric) (principal); N18.6 End stage renal disease; B20 Human immunodeficiency virus [HIV] disease; E87.1 Hypo-osmolality and hyponatremia; C15.9 Malignant neoplasm of esophagus, unspecified; I13.2 Hypertensive heart and chronic kidney disease with heart failure and with stage 5 chronic kidney disease, or end stage renal disease; I50.32 Chronic diastolic (congestive) heart failure; Z99.2 Dependence on renal dialysis; E78.5 Hyperlipidemia, unspecified; Z99.81 Dependence on supplemental oxygen; F14.10 Cocaine abuse, uncomplicated; F12.10 Cannabis abuse, uncomplicated; E11.22 Type 2 diabetes mellitus with diabetic chronic kidney disease; Z91.19 Patient's noncompliance with other medical treatment and regimen; Z87.891 Personal history of nicotine dependence; Z89.612 Acquired absence of left leg above knee; Z96.652 Presence of left artificial knee joint
CPT/HCPCS: 36415; 70450; 71045; 71250; 80048; 80053; 82550; 82553; 82805; 83605; 83690; 83735; 83880; 84132; 84484; 85025; 87040; 87536; 87804; 93005; 93306; 93880; 94640; 94660; J0692; J1100; J1644; J3370; J3490; J7050; J7070

== ENCOUNTER 2018-12-28 15:30 | Outpatient (CLI) | payer OTHER ==
--- NOTE | 2018-12-28 16:28 | MRI ---
MRI Upper Ext Jt Rt WO Con History: [Right shoulder pain] Comparison: Shoulder radiograph September 26 2018 Findings: Biceps tendon: Severe extra arterial biceps tenosynovitis. There is tear of the biceps labr al anchor. Labrum: Maceration anterior, inferior, and posterior labrum. Tear of the superior labrum extends into the biceps labral anchor. Rotator cuff: High-grade tendinosis of the subscapularis. Supraspinatus tendon and associated tendons are without full-thickness tear. Partial tear surface tear of the anterior fibers of the infraspinatus tendon. Moderate tendinosis. Soft tissues: Very large joint effusion extensive debris throughout the joint. Loss of normal T1 sign al throughout the glenoid. The glenoid is flattened. There are erosions of the humeral head and of the glenoid. There are tears of the middle glenohumeral ligament and superior glenohumeral ligament. There is stretching of the axillary pouch inferior glenohumeral ligament. Muscles: Mild low-grade edema throughout the musculature including the supraspinous, interspinous, an d subscapularis muscles. Bones: Large erosions of the glenoid and of the humeral head. There is posterior decentering of the h umeral head. Distal clavicular osteolysis. Incidental note is made of an os acromiale. Impression: 1. Extensive synovitis, debris throughout the shoulder, labral maceration, subcortical erosions, and very large volume of joint fluid. 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 Aspiration and fluid visualiza tion is recommended. Orthopedic consultation advised. Chronic septic arthritis is also a possibility. 2. No full-thickness rotator cuff tear.
== END 2018-12-28 15:31 | disposition home or self-care (01) ==
LOC: MRI 15:30
DX: R22.31 Localized swelling, mass and lump, right upper limb (principal); M65.811 Other synovitis and tenosynovitis, right shoulder; M11.011 Hydroxyapatite deposition disease, right shoulder

== ENCOUNTER 2019-02-18 17:10 | Inpatient (IN) | payer MEDICARE, OTHER ==
[2019-02-18 18:22] LABS: Hemoglobin 10.1 g/dL (14.0-18.0); Mean Corpuscular HGB CONC 31.4 g/dL (32.0-36.0); Mean Corpuscular Hemoglobin 34.2 pg (27.0-31.0); Mean Platelet Volume 8.8 fL (7.4-10.4); Platelet Count 89 thou/uL (130-400); RBC Distribution Width 13.8 % (11.5-14.5); Red Blood Cell (RBC) Count 2.97 mill/uL (4.70-6.10); White Blood Cell (WBC) Count 2.5 thou/uL (4.8-10.8)
--- NOTE | 2019-02-18 18:35 | RAD ---
SINGLE VIEW OF THE CHEST: Comparison: 09-26-18 History: Dyspnea, shortness of breath. FINDINGS: Single view of the chest shows an enlarged cardiomediastinal silhouette. The Mediport is unchanged in position. There is no evidence of consolidation, mass, or pleural effusion. IMPRESSION: Stable cardiomegaly. POS: [facility]
[2019-02-18 18:46] LABS: ALT (SGPT) 8 U/L (8-55); AST (SGOT) 8 U/L (5-34); Albumin 3.3 g/dL (3.4-4.8); Alkaline Phosphatase 149 U/L (40-150); Anion Gap 14 mmol/L (10-20); BUN (Urea Nitrogen) 44 mg/dL (8.4-25.7); Bilirubin, Total 0.6 mg/dL (0.2-1.2); Calc. Creatinine Clearance 0 mL/min (70-130); Calcium 7.9 mg/dL (7.8-10.44); Carbon Dioxide 26 mmol/L (23-31); Chloride 98 mmol/L (98-107); Estimated GFR-MDRD 14; Globulin 3.1 g/dL (2.4-3.5); Glucose 113 mg/dL (80-115); Potassium 4.1 mmol/L (3.5-5.1); Protein, Total 6.4 g/dL (5.8-8.1); Sodium 134 mmol/L (136-145)
[2019-02-18 18:50] LABS: #Eosinphils 0.1 thou/uL (0.0-0.7); #Lymphocytes 0.9 thou/uL (1.20-3.40); #Monocytes 0.3 thou/uL (0.11-0.59); #Neutrophils 1.2 thou/uL (1.40-6.50); %Basophils 0.6 % (0.0-1.0); %Eosinophils 3.4 % (0.0-10.0); %Lymphocytes 35.7 % (21.0-51.0); %Monocytes 11.6 % (0.0-10.0); %Neutrophils 48.7 % (42.0-75.0); MDiff Complete? YES; Macrocytosis SLIGHT = 6-15 cells (100X) (0-5/hpf)
[2019-02-18 20:29] LABS: CKMB 4.6 ng/mL (0-6.6)
[2019-02-18 22:54] LABS: Troponin I 0.564 ng/mL (< 0.028)
[2019-02-18] MEDS ORDERED: Aspirin 81 mg Enteric Coated Tablet ONE (23:21)
[2019-02-19 01:29] LABS: Critical Call Chem Troponin I RESULT DECREASING; Troponin I 0.528 ng/mL (< 0.028)
[2019-02-19] MEDS ORDERED: Aspirin 325 MG TAB ONE (01:59)
[2019-02-19] MEDS ORDERED: Ondansetron PF 4 MG/2 ML Vial IVP PRN (08:31)
[2019-02-19] MEDS ORDERED: HYDROcodone/Acetaminophen 5/325 mg Tablet PO PRN (08:31)
[2019-02-19] MEDS ORDERED: Famotidine 20 MG TAB PO SCH (09:00)
--- NOTE | 2019-02-19 10:45 | HP ---
CHIEF COMPLAINT: Shortness of breath and low blood pressure. HISTORY OF PRESENT ILLNESS: The patient is a 63-year-old male, who is hemodialysis patient of Dr. Barrera, who had dialysis on Monday, but yesterday he started having some shortness of breath and he noticed his blood pressure was down to 70s systolic and his pulse oximetry was in the 80s. He felt sleepy, tired. He denied any chest pain. There was no fever or chills. There was no any nausea, vomiting, or abdominal pain. His PCP is [facility], and surrogate decision maker is his sister, Ally Grant. He sees Marilee Canchola at the [facility]. He is not aware of any cardiac problems, but recently, he was seen by Dr. Lawrence in his office for some clearance prior to the surgery. He was supposed to have on his thyroid since he was diagnosed with thyroid cyst, he feels somewhat better now. PAST MEDICAL HISTORY: Positive for; 1. End-stage renal disease, on hemodialysis 3 times a week. 2. Chronic obstructive pulmonary disease. 3. Borderline diabetes mellitus. 4. Hypertension. 5. Human immunodeficiency virus. 6. Hyperlipidemia. 7. History of esophageal cancer, treated with chemotherapy and radiation. 8. Thyroid cyst. PAST SURGICAL HISTORY: 1. Hemorrhoidectomy. 2. 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 3. Status post total left knee replacement. 4. Hernia repair x3. 5. Tonsillectomy. 6. Left elbow surgery. 7. Left arm dialysis shunt placement. SOCIAL HISTORY: He drinks socially sporadically maybe twice a month. He used to use drugs, but not anymore for long time. He does not smoke, but he is a former tobacco user. FAMILY HISTORY: Father is not well known to him. Mother had cancer of the lung and she when she was 45. MEDICATIONS: Please refer to [facility]. ALLERGIES: CIPRO, CLINDAMYCIN, AND PAXIL. REVIEW OF SYSTEMS: Positive for numbness in both upper extremities, both hands with some mild pain in both hands; constipation, which is chronic, he moves his bowels every few days; shoulder pain; chronic cough, nonproductive. Negative for fever or chills. Positive for shortness of breath. Negative for chest pain. Negative for palpitations. The rest of systems were reviewed, and symptoms were negative. PHYSICAL EXAMINATION: GENERAL: He is not in any distress during my visit. VITAL SIGNS: His blood pressure is 100/65, pulse is 85, respirations 16, O2 saturation is 96% on 3 L by nasal cannula. HEENT: His head is atraumatic, normocephalic. Eyes are PERRLA. Sclerae are nonicteric. Conjunctivae palish. Oral mucosa is moist. NECK: Supple. LUNGS: Breath sounds diminished at both bases. No wheezing or rales. HEART: S1, S2, somewhat distant. There is a systolic murmur at the apex 3/6. There is no S3 or S4. ABDOMEN: Soft, nontender, nondistended. EXTREMITIES: He has above the knee amputee status on the left side, and the right side shows 1+ peripheral edema. Pulses diminished on the right foot on both tibialis posterior and dorsalis pedis arteries similar bilaterally. NEUROLOGICAL: He follows my commands. He is alert and oriented x4. There are no any motor deficits. Cranial nerves are intact. LABORATORY AND DIAGNOSTIC DATA: Labs showed white count of 2.5, hemoglobin 10.1, hematocrit 32.3, platelet count is 89,000. Chemistry showed sodium of 134, potassium 4.1, chloride 98, CO2 of 26, BUN 44, creatinine 5.25. His troponins are 0.379, 0.564, and 0.528. BNP 3455, albumin 3.3, and the rest of chemistry within normal limits. EKG showed normal sinus rhythm with T-wave inversions in all precordial leads. ST-segment is not elevated. Chest x-ray showed cardiomegaly. No acute infiltrates. IMPRESSION: 1. [id number] myocardial infarction. 2. Pancytopenia. This could be related to his HIV status. We will check his CD4 count to know whether he has some liver cirrhosis. He does not give me a history of that problem from the past. 3. End-stage renal disease, on hemodialysis 3 times a week. 4. Chronic obstructive pulmonary disease. 5. Hyperlipidemia. 6. Hypertension per history. 7. Borderline diabetes. 8. Human immunodeficiency virus. PLAN: Plan is admission to [facility], full admission. Condition is fair. Activity is bedrest. IV Hep-Lock. The patient received aspirin 325 mg yesterday and will continue that. Cardiology consultation with Dr. Lawrence. The case was discussed with Dr. Lynne, who was electronic device repairer. Apparently, Dr. Lawrence will see the patient since he saw him recently in his office and he did echocardiogram according to the patient, so I am not getting a new echo on him. He said that he had cardiac catheterization done in the last year or so, but he is not really sure what it found. We will put him on PUD prophylaxis with Pepcid, DVT prophylaxis with heparin. Dr. Barrera is going to be called to set him up for dialysis. Job ID: [id number]
[2019-02-19] MEDS: Aspirin 325 MG TAB PO SCH (11:28)
[2019-02-19 14:17] LABS: HBSAg Index 0.36 S/CO (0-0.99); Hep B Surf Ag Non-Reactive S/CO (NonReactive)
[2019-02-19] MEDS ORDERED: Heparin 5,000 UNITS/ML VIAL SC SCH (15:00)
[2019-02-19] MEDS ORDERED: Non-Formulary Item 1 EACH (Acetaminophen With Codeine [Tylenol With Codeine #4] 1 TABLET) PO PRN (15:18)
[2019-02-19 15:57] VITALS: BMI 26.1
--- NOTE | 2019-02-19 19:24 | CON ---
DATE OF CONSULTATION: 02/19/2019 REASON FOR CONSULTATION: Positive troponins. HISTORY OF PRESENT ILLNESS: Mr. Villeda is a pleasant 63-year-old gentleman, who comes to the hospital for shortness of breath. He has end-stage renal disease and he is on dialysis Monday, , and Monday. He had dialysis on Monday by Dr. Barrera. He noticed yesterday started having shortness of breath, checked his blood pressure, and had dipped to the 70s. Oxygen level was in the 80s, felt really tired. He thought it was the COPD acting up, so he took some inhalers for rescue and he did feel better, however, it did eventually continue to get worse, so he came into the hospital and admitted for further evaluation and care. During his admission, his troponin was drawn and it was 0.5, so Cardiology has been consulted for possible non-STEMI. He has had a normal heart catheterization back in March of 2017. He had a similar presentation with increased shortness of breath and troponin of 2.6. Heart catheterization at that time showed normal coronaries. He recently had an echocardiogram in the office and it showed an EF that was normal, but he had severe pulmonary hypertension with severely elevated right ventricular systolic pressure about 110 mmHg and severe tricuspid regurgitation. His left ventricular function was 55% to 60% at that time. PAST MEDICAL HISTORY: 1. End-stage renal disease. 2. COPD. 3. Borderline diabetes. 4. Hypertension. 5. HIV status. 6. Hyperlipidemia. 7. Esophageal cancer, treated with chemotherapy and radiation. 8. Thyroid cyst. 9. Severe pulmonary hypertension. PAST SURGICAL HISTORY: 1. Hemorrhoidectomy. 2. Left lower extremity [id number] amputation. 3. Left total knee replacement. 4. Hernia repair. 5. Tonsillectomy. 6. Left elbow surgery. 7. Left arm dialysis shunt placement. SOCIAL HISTORY: Social alcohol use. No drugs. Former smoker. Former drug user. FAMILY HISTORY: No early coronary artery disease as far as he knows. OUTPATIENT MEDICATIONS: 1. Hydralazine 25 mg t.i.d. 2. Minoxidil 20 mg at bedtime. 3. Lisinopril 40 mg b.i.d. 4. Lactulose. 5. Folic acid. 6. Flonase. 7. Intelence. 8. Calcium lactate. 9. Amlodipine 10 mg a day. 10. Zidovudine. 11. Terazosin. 12. Raltegravir. 13. Pravastatin. 14. Polyethylene glycol. 15. Pantoprazole. 16. Nortriptyline. 17. Vitamin B12. 18. Tylenol No. 3. 19. Gabapentin. 20. Coreg. 21. Spiriva. 22. Albuterol inhaler. ALLERGIES: 1. CLINDAMYCIN. 2. PAROXETINE. 3. CIPROFLOXACIN. REVIEW OF SYSTEMS: A 12-point review of systems was done and was all negative unless stated in the history of present illness. He denies chest pain, tightness, or pressure. PHYSICAL EXAMINATION: VITAL SIGNS: Temperature 97.7, pulse 82, respiratory rate 20, saturating 96% on 1/2 liters, and blood pressure 97/61. GENERAL: Awake, alert, and oriented x3, in no distress. HEENT: Normocephalic and atraumatic. NECK: Supple. LUNGS: Have reduced breath sounds bilaterally. CARDIOVASCULAR: S1 and S2. No S3 or S4. No murmurs. ABDOMEN: Soft. Positive bowel sounds. EXTREMITIES: 1+ edema in left leg. SKIN: Warm and dry. LABORATORY DATA: Laboratory work was reviewed. CBC with a white count of 2.5, hemoglobin of 10.1, hematocrit 32, platelet count of 89. He is pancytopenic. Coags were reviewed. Chemistries were reviewed. Elevated BUN and creatinine, low sodium of 134. Lactic acid was normal. BNP was 3455. Troponin I was 0.37 and 0.56 and 0.52. CK-MB of 4.6, albumin of 3.3. Hepatitis B surface antigen was nonreactive. ASSESSMENT: 1. Type 2 World Health Organization type of myocardial infarction, demand ischemia. 2. Pulmonary hypertension. 3. Chronic obstructive pulmonary disease. 4. End-stage renal disease. PLAN: 1. Most likely, his elevated troponin is related to right-sided elevated pressures. Most recent echo was done about a month and a half ago and his right ventricular systolic pressures was in the 110 range. I do not think this was a coronary event as he had normal coronaries in the past with even higher troponin. More than likely this is just related to volume overload and pulmonary hypertension as well as chronic obstructive pulmonary disease. 2. Continue hemodialysis as scheduled. 3. No plan on any invasive interventions for now. Thank you for letting us to participate in the care of your patient. We will follow. Job ID: [id number]
[2019-02-19] MEDS ORDERED: Atorvastatin Calcium 10 MG TAB PO SCH (21:00)
[2019-02-19] MEDS ORDERED: Minoxidil 10 MG TAB PO SCH (21:00)
[2019-02-19] MEDS ORDERED: Terazosin HCl 5 MG CAP PO SCH (21:00)
[2019-02-19] MEDS: Raltegravir Potassium 400 MG TAB PO SCH ×2 (21:00→22:34)
[2019-02-19] MEDS: Carvedilol 3.125 MG TAB PO SCH (21:39)
[2019-02-19] MEDS: Simvastatin 5 MG TAB PO SCH (21:40)
[2019-02-19] MEDS: Nortriptyline HCl 25 MG CAP PO SCH (21:41)
[2019-02-19] MEDS: Gabapentin 300 MG CAP PO SCH (21:42)
--- NOTE | 2019-02-20 02:15 | CON ---
DATE OF CONSULTATION: 02/19/2019 CONSULTING PHYSICIAN: Bruce Archuleta MD REQUESTING PHYSICIAN: Atilio Downing MD REASON FOR CONSULTATION: Worsening shortness of breath in a patient with end-stage renal disease. IMPRESSION: 1. End-stage renal disease, on hemodialysis, Monday, , Monday, due for dialysis today. 2. Respiratory distress, query cause. PLAN: The patient to be dialyzed today with ultrafiltration as tolerated by hemodynamics based on the patient's schedule. By tomorrow, if the patient is too significantly short of breath, will undergo further dialysis. HISTORY OF PRESENT ILLNESS: This is a 63-year-old gentleman with end-stage renal disease, on Monday, , Monday dialysis, due for dialysis today, who, however, yesterday complained of worsening shortness of breath. The patient was then admitted and decision has not been taken to involve Renal in the management of this case. PAST MEDICAL HISTORY: Significant for end-stage renal disease, on dialysis; COPD; diabetes mellitus, borderline; hypertension; HIV; dyslipidemia; thyroid cyst. MEDICATIONS: Reviewed as documented on [employer]. SOCIAL HISTORY: No alcohol. No tobacco. No illicit drug use. FAMILY HISTORY: Not significant related to present illness. ALLERGIES: TO CIPRO, CLINDAMYCIN, AND PAXIL. REVIEW OF SYSTEMS: As documented in the body of the history. All other systems were reviewed and found not to be significantly related to presenting illness. PHYSICAL EXAMINATION: GENERAL: The patient was found to be doing well on dialysis, noted with the following vital signs. VITAL SIGNS: Afebrile, temperature 97.7, pulse 82, respiratory rate of 20, O2 saturations of 96%, blood pressure 97/61. HEENT: Unremarkable. CARDIOVASCULAR SYSTEM: First and second heart sounds were heard. RESPIRATORY SYSTEM: Clear to auscultation. DIGESTIVE SYSTEM: Revealed a benign abdomen with positive bowel sounds. EXTREMITIES: No peripheral edema. SKIN: No new gross rash. LYMPHATICS: No peripheral lymphadenopathy. SUMMARY: A 63-year-old gentleman with end-stage renal disease, hemodialysis dependent, who presented here with worsening shortness of breath. Thank you for this consultation. We will follow with you. Job ID: [id number]
[2019-02-20 06:49] LABS: #Eosinphils 0.1 thou/uL (0.0-0.7); #Lymphocytes 0.7 thou/uL (1.20-3.40); #Monocytes 0.4 thou/uL (0.11-0.59); #Neutrophils 1.6 thou/uL (1.40-6.50); %Eosinophils 3.6 % (0.0-10.0); %Lymphocytes 26.8 % (21.0-51.0); %Monocytes 12.6 % (0.0-10.0); %Neutrophils 57.1 % (42.0-75.0); Hemoglobin 10.2 g/dL (14.0-18.0); Mean Corpuscular HGB CONC 32.1 g/dL (32.0-36.0); Mean Corpuscular Hemoglobin 35.1 pg (27.0-31.0); Mean Platelet Volume 9.1 fL (7.4-10.4); Platelet Count 93 thou/uL (130-400); RBC Distribution Width 14.1 % (11.5-14.5); Red Blood Cell (RBC) Count 2.91 mill/uL (4.70-6.10); White Blood Cell (WBC) Count 2.8 thou/uL (4.8-10.8)
[2019-02-20 07:01] LABS: Anion Gap 14 mmol/L (10-20); BUN (Urea Nitrogen) 33 mg/dL (8.4-25.7); Calc. Creatinine Clearance 22 mL/min (70-130); Calcium 8.3 mg/dL (7.8-10.44); Carbon Dioxide 26 mmol/L (23-31); Chloride 98 mmol/L (98-107); Estimated GFR-MDRD 16; Glucose 85 mg/dL (80-115); Potassium 4.4 mmol/L (3.5-5.1); Sodium 134 mmol/L (136-145)
--- NOTE | 2019-02-20 07:54 | ULT ---
ULTRASOUND ABDOMEN COMPLETE: Date: 02/20/19 INDICATION: Recent onset abdominal pain with nausea, vomiting, diarrhea, and intermittent constipation. TECHNIQUE: Bonilla-scale ultrasound evaluation of the liver, gallbladder, spleen, pancreas, common bile duct, kidne ys, abdominal aorta, and inferior vena cava (IVC). FINDINGS: There is persistent shadowing from bowel content, which does limit evaluation. Gallbladder is surgica lly absent. The common duct is normal, measuring up to 6 mm in diameter. No focal hepatic lesion is d emonstrated. Bilateral renal cysts are present. There are punctate foci of increased echogenicity in the splenic parenchyma. The pancreas, aorta, and left kidney are largely obscured from view by shadow ing, limiting assessment. No evidence of significant ascites. IMPRESSION: 1. Limited evaluation due to persistent shadowing from bowel content. 2. Status post cholecystectomy. 3. Bilateral renal cysts. POS: [facility]
[2019-02-20] MEDS ORDERED: CALCIUM LACTATE 650 MG PO SCH (09:00)
[2019-02-20] MEDS: Raltegravir Potassium 400 MG TAB PO SCH ×2 (09:32→21:06)
[2019-02-20] MEDS: Aspirin 325 MG TAB PO SCH (09:32)
[2019-02-20] MEDS: Famotidine 20 MG TAB PO SCH (09:33)
[2019-02-20] MEDS: Folic Acid 1 MG TAB PO SCH (09:33)
[2019-02-20] MEDS: Cyanocobalamin (Vitamin B-12) 1,000 MCG TAB PO SCH (09:33)
[2019-02-20] MEDS: hydrALAZINE 25 MG TAB PO SCH (09:34)
[2019-02-20] MEDS: Carvedilol 3.125 MG TAB PO SCH ×2 (09:35→21:05)
[2019-02-20] MEDS: Polyethylene Glycol 3350 17 GM Packet PO SCH (09:35)
[2019-02-20] MEDS: Fluticasone Propionate Nasal Spray 16 gm Bottle NASAL SCH (09:38)
[2019-02-20] MEDS ORDERED: Loperamide HCl 2 MG CAP PO PRN (10:35)
--- NOTE | 2019-02-20 12:11 | PRG ---
DATE OF SERVICE: 02/20/2019 SUBJECTIVE: The patient is seen and examined at the bedside. He complains about some diarrhea. Apparently, he was giving lactulose according to the protocol to continue his home medications and he does not remember taking this medications at home. OBJECTIVE: VITAL SIGNS: Blood pressure is 122/67, pulse is 85, respiratory rate is 20, and O2 saturation is 93% on 2 L by nasal cannula. His temperature is 98.2. HEENT: Head is atraumatic and normocephalic. Sclerae are nonicteric. Oral mucosa is moist. NECK: Supple. LUNGS: Breath sounds diminished at both bases with few crackles bilaterally at both bases. HEART: S1 and S2, normal. No S3. No S4. ABDOMEN: Soft, nontender. Bowel sounds are present. No organomegaly. EXTREMITIES: Left [id number] amputee status. Right lower extremity, no peripheral edema. LABORATORY DATA: White count of 2.8, hemoglobin 10.2, hematocrit 31.8, and platelet count 93,000. Sodium of 134, potassium 4.4, chloride 98, CO2 of 28, BUN 33, creatinine 4.45. The rest of chemistry within normal limits. Two other troponin levels 0.564 and 0.528. Hepatitis B surface antigen nonreactive. Abdominal ultrasound showed no ascites, status post cholecystectomy, bilateral renal cysts. IMPRESSION: 1. Elevation of troponin-I x3, felt to be related to increased right-sided heart pressure. School Bus Operator, Dr. Lawrence does not think this is type 2 myocardial infarction. 2. Pancytopenia. This could be related to human immunodeficiency virus status, but that is not clear, his CD4 count is still pending, and liver cirrhosis is unlikely since his ultrasound came back without ascites in his abdomen. 3. End-stage renal disease, on hemodialysis 3 times a week. 4. Chronic obstructive pulmonary disease. 5. Hyperlipidemia. 6. Hypertension per history. 7. Borderline diabetes. 8. Human immunodeficiency virus. PLAN: Stop lactulose. Use Imodium p.r.n. Stop terazosin and minoxidil. His blood pressure is running on the lower side. We will continue his Coreg and hydralazine for now, and we will get Hematology consult regarding his pancytopenia. He will continue his hemodialysis as per Dr. Barrera's recommendation. Job ID: [id number]
[2019-02-20 13:32] LABS: Vitamin B12 Greater than 2000 pg/mL (211-911)
--- NOTE | 2019-02-20 20:25 | PRG ---
DATE OF SERVICE: 02/20/2019 SUBJECTIVE: The patient was seen and examined. Noted with the following vital signs. OBJECTIVE: VITAL SIGNS: Afebrile, temperature 98.2, pulse 90, respiratory rate of 20, O2 saturation 93% with blood pressure of 106/67. HEENT: Unremarkable. CARDIOVASCULAR SYSTEM: First and second heart sounds were heard. RESPIRATORY SYSTEM: Clear to auscultation. DIGESTIVE SYSTEM: Revealed a benign abdomen with positive bowel sounds. EXTREMITIES: No peripheral edema. SKIN: No new gross rash. LYMPHATICS: No peripheral lymphadenopathy. IMPRESSION: 1. End-stage renal disease, hemodialysis dependent. 2. Respiratory distress, which has improved with dialysis and ultrafiltration. PLAN: 1. I do agree with minimizing this patient's antihypertensive to optimize hemodynamics. 2. Further management to be dependent on the clinical course as well as further recommendations from the Primary Service. Job ID: [id number]
[2019-02-20] MEDS: Gabapentin 300 MG CAP PO SCH (21:00)
[2019-02-20] MEDS: Simvastatin 5 MG TAB PO SCH (21:00)
[2019-02-20] MEDS: Nortriptyline HCl 25 MG CAP PO SCH (21:05)
--- NOTE | 2019-02-20 22:50 | PDOC.CTH ---
Cardiology Progress Note - Subjective He is doing well. No chest pain, had diarrhea after lactulose. SOB at baseline. - Objective Vital Signs Temp Pulse Resp BP Pulse Ox 02/20/19 16:33 98.2 F 90 20 106/67 93 L 02/20/19 11:31 98.2 F 85 20 122/67 93 L Weight 201 lb 7 oz 02/19/19 02/20/19 02/21/19 06:59 06:59 06:59 Intake Total 250 720 Output Total 0 0 Balance 250 720 - Physical Examination General/Neuro: alert & oriented x3, NAD Neck: no JVD present Lungs: CTA, unlabored respirations Heart: RRR Abdomen: NT/ND Extremities: other: (no edema, BKA) - Telemetry Telemetry Rhythm: NSR - Labs Result Diagrams: 02/20/19 05:59 02/20/19 05:59 Troponin/CKMB CK-MB (CK-2) 4.6 ng/mL (0-6.6) 02/18/19 18:12 Troponin I 0.528 ng/mL (< 0.028) H* 02/19/19 00:41 - Assessment/Plan 1. SOB 2. Pulmonary HTN 3. COPD. 4. ESRD. 5. Type 2 CO demand ischemia. 6. Normal coronaries on [facility] 2 yrs ago. PLAN: - Continue medical regimen. - CV stable. - Will sign off, please call with any questions.
--- NOTE | 2019-02-20 23:24 | CON ---
DATE OF CONSULTATION: REASON FOR CONSULT: Pancytopenia. HISTORY OF PRESENT ILLNESS: Mr. Villeda is a pleasant 63-year-old gentleman with a past medical history of pulmonary hypertension, end- stage renal disease, HIV, and esophageal cancer, who presented to the emergency room with shortness of breath and low blood pressure. He had a CBC which showed a white count of 2.5, hemoglobin of 10.1, and platelet count of 89,000. He has been seen by Cardiology for his pulmonary hypertension and they feel this is related to volume overload. He has been getting dialysis in the hospital. He was diagnosed with esophageal cancer in 2018. He completed chemotherapy and radiation in early 2019. His oncologist is at [facility]. Review of patient's CBC shows that he has been anemic and leukopenic for several years and has essentially been stable. His thrombocytopenia is fairly new at the starting on a visit in March of 2018. He denies any bleeding issues. He lives alone and has assistance with a sitter. His iron studies, B12, and folate are all normal. His troponin is slightly elevated , likely from demand ischemia. We were asked to see the patient regarding his pancytopenia. PAST MEDICAL HISTORY: 1. Esophageal cancer, status post chemo radiation. 2. HIV, on HAART. 3. Pulmonary hypertension. 4. End-stage renal disease. 5. COPD. 6. Diabetes. 7. Hypertension. 8. Hyperlipidemia. PAST SURGICAL HISTORY: 1. Hemorrhoidectomy. 2. Left AKA. 3. Hernia repair. 4. Left arm dialysis fistula. ALLERGIES: CLINDAMYCIN, PAROXETINE, AND CIPRO. HOME MEDICATIONS: 1. Tylenol No. 3. 2. Proventil. 3. Amlodipine. 4. Calcium. 5. Coreg. 6. B12. 7. Intelence. 8. Flonase. 9. Folic acid. 10. Gabapentin. 11. . 12. Lactulose. 13. Lisinopril. 14. Minoxidil. 15. Pamelor. 16. Protonix. 17. MiraLAX. 18. Pravastatin. 19. Isentress. 20. Terazosin. 21. Spiriva. 22. Zidovudine. FAMILY HISTORY: Mother had lung cancer at early age. SOCIAL HISTORY: Lives alone. Denies any alcohol, tobacco, or illicit drug use. REVIEW OF SYSTEMS: A 10-point review of systems is negative. PHYSICAL EXAMINATION: VITAL SIGNS: Temperature is 98.2, pulse is 90, respiratory rate is 20, BP is 106/67, he is 93% on 2 L. GENERAL: This is a chronically ill-appearing male, in no acute distress. HEENT: Normocephalic, atraumatic. NECK: Supple. CV: Regular rate and rhythm. He has a 3/6 murmur. LUNGS: Clear anterior. ABDOMEN: Obese and nontender. Bowel sounds are positive. EXTREMITIES: He has a left AKA, compression sock on his right lower extremity. He has a fistula in his left upper extremity. SKIN: There is no rash. HEMATOLOGICAL: There is no petechiae or purpura. NEUROLOGICAL: Nonfocal. PSYCH: He is alert and oriented. PERTINENT LABS AND X-RAYS: Current WBCs 2.8, hemoglobin 10.2, hematocrit 31.8, platelet count is 93,000. He has 57% neutrophils, 26% lymphocytes, 12% monocytes. Sodium is 134, potassium 4.4, chloride 98, CO2 is 26, BUN is 14, creatinine 4.45 , calcium is 8.3. Troponin is 0.528. His BNP is 3455. His B12 is greater than 2000, folate is 11.4. Serum total protein is 6.4, albumin 3.3, globulin 3.1, bilirubin is 0.6, AST is 8, ALT is 8, alkaline phosphatase is 149. Hepatitis B is negative. His abdominal ultrasound showed no liver lesions. There was some increased echogenicity of the splenic parenchyma. The exam was limited. ASSESSMENT: Pancytopenia multifactorial. DISCUSSION: Case has been discussed with Dr. Can. The patient has had chronic anemia and leukopenia for at least 3 years. This is secondary to his chronic diseases, dialysis, and likely his HIV. His new onset pancytopenia may be directly related to his esophageal cancer. No further inpatient workup needed at this time. I would recommend that he follow up with his oncologist/clutch specialist at [facility] to determine if any further workup needs to be done. No transfusion is required at this time. Thank you for the consult. Job ID: [id number] [facility]
[2019-02-21 05:53] LABS: #Lymphocytes 0.9 thou/uL (1.20-3.40); #Monocytes 0.3 thou/uL (0.11-0.59); %Basophils 0.4 % (0.0-1.0); %Eosinophils 1.4 % (0.0-10.0); %Lymphocytes 26.6 % (21.0-51.0); %Monocytes 10.5 % (0.0-10.0); %Neutrophils 61.2 % (42.0-75.0); Hemoglobin 9.7 g/dL (14.0-18.0); Mean Corpuscular HGB CONC 31.7 g/dL (32.0-36.0); Mean Corpuscular Hemoglobin 34.4 pg (27.0-31.0); Mean Platelet Volume 9.2 fL (7.4-10.4); Platelet Count 92 thou/uL (130-400); RBC Distribution Width 13.9 % (11.5-14.5); Red Blood Cell (RBC) Count 2.81 mill/uL (4.70-6.10); White Blood Cell (WBC) Count 3.3 thou/uL (4.8-10.8)
[2019-02-21 06:05] LABS: Anion Gap 15 mmol/L (10-20); BUN (Urea Nitrogen) 63 mg/dL (8.4-25.7); Calc. Creatinine Clearance 19 mL/min (70-130); Calcium 8.2 mg/dL (7.8-10.44); Carbon Dioxide 27 mmol/L (23-31); Chloride 96 mmol/L (98-107); Estimated GFR-MDRD 14; Glucose 84 mg/dL (80-115); Sodium 133 mmol/L (136-145)
[2019-02-21 07:37] LABS: Macrocytosis SLIGHT = 6-15 cells (100X) (0-5/hpf); Platelet Morphology Comment Appears Decreased
[2019-02-21 08:36] VITALS: BP 117/70; TEMP 97.9
[2019-02-21] MEDS: Carvedilol 3.125 MG TAB PO SCH (13:08)
[2019-02-21] MEDS: Aspirin 325 MG TAB PO SCH (13:09)
[2019-02-21] MEDS: Folic Acid 1 MG TAB PO SCH (13:12)
[2019-02-21] MEDS: Polyethylene Glycol 3350 17 GM Packet PO SCH (13:13)
[2019-02-21] MEDS: Raltegravir Potassium 400 MG TAB PO SCH (13:13)
[2019-02-21] MEDS: Famotidine 20 MG TAB PO SCH (13:16)
[2019-02-21] MEDS: Cyanocobalamin (Vitamin B-12) 1,000 MCG TAB PO SCH (13:16)
--- NOTE | 2019-02-21 13:16 | PQF ---
CLINICAL DOCUMENTATION IMPROVEMENT CLARIFICATION FORM: ICD-10 Updated PLEASE DO AN ADDENDUM TO THE PROGRESS NOTE WITH ANY DOCUMENTATION UPDATES OR ADDITIONS AND CARRY THROUGH TO DC SUMMARY. THANK YOU. DATE: 02/21/19 ATTN: DR. QUILES Please exercise your independent, professional judgment in responding to the clarification form. Clinical indicators are provided on the bottom of this form for your review Please check appropriate box(s): AMI TYPE: [ ] NSTEMI [ x ] NH TYPE 2 [ ] DEMAND ISCHEMIA [ ] Other diagnosis In addition, please specify: Present on Admission (POA): [ ] Yes [ ] No [ ] Unable to determine CLINICAL INDICATORS - SIGNS / SYMPTOMS / LABS H&P: "NON-ST ELEVATION MYOCARDIAL INFARCTION" CONSULTATION NOTE 02/19: "TYPE 2 [employer]IZATION TYPE OF MYOCARDIAL INFARCTION, DEMAND ISCHEMIA" PROGRESS NOTE 02/20: "DR. ALVARADO DOES NOT THINK THIS IS TYPE 2 MYOCARDIAL INFARCTION." TROPONINS 0.379 / 0.564 / 0.528 / 0.564 / 0.528 RISKS: HYPERTENSION HIV ESRD TREATMENT: TELEMETRY MONITORING SERIAL ENZYMES CARDIOLOGY CONSULT ASPIRIN (ER-PRESENT) (This form is maintained as a part of the permanent medical record) SAP Diesel Engine Engineer [employer] Winform Viewer 2015 [employer]. All Rights Reserved TORO [email or web address] Office: [phone] [facility] HOSPITALVenancio
[2019-02-21] MEDS: hydrALAZINE 25 MG TAB PO SCH (13:23)
[2019-02-21] MEDS: Fluticasone Propionate Nasal Spray 16 gm Bottle NASAL SCH (13:24)
--- NOTE | 2019-02-22 05:50 | DIS ---
DATE OF ADMISSION: 02/18/2019 DATE OF DISCHARGE: 02/21/2019 FINAL DIAGNOSES: 1. Shortness of breath, most likely secondary to pulmonary hypertension and chronic obstructive pulmonary disease. 2. Pulmonary hypertension. 3. Chronic obstructive pulmonary disease. 4. End-stage renal disease, on dialysis three times a week. 5. Type 2 myocardial infarction demand ischemia. 6. Normal coronaries on left heart catheterization, 2 years ago. 7. Pancytopenia, multifactorial, but the patient has a history of esophageal cancer, which was treated with chemotherapy. 8. Hyperlipidemia. 9. Borderline diabetes. 10. HIV. CONSULTANTS: Agapito Lawrence MD, Cardiology; and Bruce Archuleta MD, Nephrology; and Nette Zuluaga NP, Hematology. HOSPITAL COURSE: The patient is a 63-year-old male, who was admitted to the hospital because of increased shortness of breath and hypotension. He denied any chest pain, fever or chills, nausea, vomiting, or abdominal pain. [facility] and at the time of emergency room evaluation, his white count was 2.5, hemoglobin 10.1, platelet count 89,000. Electrolytes were within normal limits. Creatinine 5.25, and troponins were 0.379, 0.564, then 0.528. BNP was elevated at 3455. The rest of chemistry was within normal limits. EKG showed normal sinus rhythm with T-wave inversions. No precordial leads and there was not any ST-segment elevation. Chest x-ray showed cardiomegaly and no acute infiltrates. The patient was admitted with working diagnosis of, 1. Type 2 myocardial infarction. 2. Pancytopenia, which was felt to be multifactorial after circular sawyer stone evaluated the patient. 3. End-stage renal disease, on hemodialysis 3 times a week. 4. Chronic obstructive pulmonary disease. 5. Hyperlipidemia. 6. Hypertension per history. 7. Borderline diabetes. 8. Human immunodeficiency virus. The patient was admitted to the hospital with IV Hep-Lock, aspirin, and Cardiology consultation. He had left heart catheterization done 2 years ago, which did not show any significant coronary artery disease. The patient was seen by Dr. Lawrence for Cardiology evaluation. Apparently, he has a pulmonary hypertension. It was felt that elevated troponin was secondary to demand ischemia. Also, the patient underwent abdominal ultrasound which did not show any ascites. This was part of the pancytopenia evaluation and then Hematology evaluated him and found multiple reasons why he is pancytopenic. Apparently, he is pancytopenic for long time. Also, he received chemotherapy for his esophageal cancer in the last 2 months. The patient was dialyzed under Dr. Barrera's supervision, his carding supervisor. Today, he is doing fine. He is finishing his dialysis. Vitals: Blood pressure 117/70, pulse is 81, temperature is 97.9, respirations 18, O2 saturation is 96% on 2 L by nasal cannula. He is discharged home in good condition. ACTIVITIES: As tolerated. DIET: Renal, low-salt. MEDICATIONS: At the time of discharge: 1. Albuterol and Atrovent p.r.n. as needed. 2. Spiriva to continue. 3. Carvedilol 3.125 mg twice a day. 4. Aspirin 325 mg once a day. 5. Vitamin B12 of 1000 mcg once a day. 6. Etravirine 200 mg twice a day. 7. Famotidine 20 mg once a day. 8. Fluticasone nasal spray, one spray to each nostril once a day. 9. Folic acid 1 mg once a day. 10. Gabapentin 300 mg at bedtime. 11. Hydralazine 25 mg daily. 12. Hydrocodone one tablet q.4 hours p.r.n. as needed. 13. Loperamide 2 mg p.r.n. as needed. 14. Tylenol No. 3 one tablet q.6 hours p.r.n. as needed. 15. Nortriptyline 25 mg at bedtime. 16. Zofran 4 mg p.r.n. as needed. 17. Pantoprazole 40 mg daily. 18. Polyethylene glycol 17 g once a day. 19. Raltegravir 400 mg twice a day. 20. Simvastatin 10 mg once a day. 21. Zidovudine 100 mg 3 times a day. 22. Calcium lactate 650 mg daily. 23. Amlodipine was stopped because the blood pressure was running low and lisinopril was stopped. 24. Minoxidil and terazosin were stopped because of hypotension he presented with. He is going to follow up with primary care physician and he will have to make some adjustment to his blood pressure medications since he is running very low on this regimen he presented with and followup should be done in a week. The patient was seen and examined before he was discharged. TIME SPENT: Discharge time is less than 30 minutes. Job ID: [id number]
--- NOTE | 2019-02-23 12:48 | EKG ---
Test Reason : SOB Blood Pressure : / mmHG Vent. Rate : 088 BPM Atrial Rate : 088 BPM P-R Int : 192 ms QRS Dur : 108 ms QT Int : 388 ms P-R-T Axes : 018 115 -42 degrees QTc Int : 469 ms Normal sinus rhythm Right ventricular hypertrophy Abnormal ECG New T wave inversions II, III, aVf conpared to 09/26/2018 Old T wave inversions V3-V6 Confirmed by KATHY JEFF DO ([id number]), restaurant expeditor CHELSEA NOWAK ([id number]) on 02/23/2019 12:47:56 PM Referred By: TOMER Confirmed By:KATHY JEFF DO
== END 2019-02-21 16:18 | disposition home or self-care (01) | DRG 280 ==
LOC: ERS 17:10 → ERHOLD 22:58 → 2NO 02-19 15:25
PROVIDERS: ADMIT Internal Medicine; ATTEND Internal Medicine
PROC: 5A1D70Z Performance of Urinary Filtration, Intermittent, Less than 6 Hours Per Day (ICD-10-PCS; principal; 2019-02-21)
DX: I21.A1 Myocardial infarction type 2 (principal); N18.6 End stage renal disease; I12.0 Hypertensive chronic kidney disease with stage 5 chronic kidney disease or end stage renal disease; D61.818 Other pancytopenia; J44.9 Chronic obstructive pulmonary disease, unspecified; Z21 Asymptomatic human immunodeficiency virus [HIV] infection status; E78.5 Hyperlipidemia, unspecified; I27.20 Pulmonary hypertension, unspecified; R73.03 Prediabetes; Z96.652 Presence of left artificial knee joint; Z99.2 Dependence on renal dialysis; Z85.01 Personal history of malignant neoplasm of esophagus; Z92.21 Personal history of antineoplastic chemotherapy; Z92.3 Personal history of irradiation; Z89.612 Acquired absence of left leg above knee; Z90.49 Acquired absence of other specified parts of digestive tract; Z87.891 Personal history of nicotine dependence; Z88.1 Allergy status to other antibiotic agents; Z88.8 Allergy status to other drugs, medicaments and biological substances
CPT/HCPCS: 36415; 36416; 71045; 76700; 80048; 80053; 82553; 82607; 82746; 83605; 83880; 84484; 85025; 85730; 87040; 87149; 87340; 93005; 94640; 94660; J7620

== ENCOUNTER 2019-03-01 02:09 | Inpatient (IN) | payer MEDICARE ==
[2019-03-01] MEDS ORDERED: Pantoprazole 40 MG VIAL ONE (02:30)
[2019-03-01 02:47] LABS: #Lymphocytes 0.8 thou/uL (1.20-3.40); #Monocytes 0.3 thou/uL (0.11-0.59); #Neutrophils 2.1 thou/uL (1.40-6.50); %Basophils 0.9 % (0.0-1.0); %Eosinophils 1.2 % (0.0-10.0); %Lymphocytes 24.2 % (21.0-51.0); %Monocytes 9.4 % (0.0-10.0); %Neutrophils 64.3 % (42.0-75.0); Hemoglobin 9.2 g/dL (14.0-18.0); Mean Corpuscular HGB CONC 32.5 g/dL (32.0-36.0); Mean Corpuscular Hemoglobin 35.4 pg (27.0-31.0); Mean Platelet Volume 8.3 fL (7.4-10.4); Platelet Count 127 thou/uL (130-400); RBC Distribution Width 14.6 % (11.5-14.5); Red Blood Cell (RBC) Count 2.59 mill/uL (4.70-6.10); White Blood Cell (WBC) Count 3.3 thou/uL (4.8-10.8)
[2019-03-01 02:52] LABS: INR-International Normal Ratio 1.1; Prothrombin Time 13.8 SEC (12.0-14.7)
[2019-03-01 03:08] LABS: ALT (SGPT) Less than 7 U/L (8-55); AST (SGOT) 13 U/L (5-34); Albumin 3.5 g/dL (3.4-4.8); Alkaline Phosphatase 185 U/L (40-150); Anion Gap 15 mmol/L (10-20); BUN (Urea Nitrogen) 27 mg/dL (8.4-25.7); Bilirubin, Total 0.7 mg/dL (0.2-1.2); Calc. Creatinine Clearance 0 mL/min (70-130); Calcium 8.2 mg/dL (7.8-10.44); Carbon Dioxide 29 mmol/L (23-31); Chloride 95 mmol/L (98-107); Estimated GFR-MDRD 28; Globulin 3.8 g/dL (2.4-3.5); Glucose 74 mg/dL (80-115); Potassium 3.9 mmol/L (3.5-5.1); Protein, Total 7.3 g/dL (5.8-8.1); Sodium 135 mmol/L (136-145)
[2019-03-01] MEDS ORDERED: Promethazine HCl 25 MG/ML VIAL ONE (03:40)
[2019-03-01] MEDS ORDERED: Pantoprazole 80 MG, Admixture Fee 1 EACH in Sodium Chloride 0.9% 100 ML IVPB SCH ×2 (04:30→06:00)
[2019-03-01 05:47] VITALS: BMI 27.2
[2019-03-01] MEDS ORDERED: Ondansetron PF 4 MG/2 ML Vial IVP PRN (05:51)
--- NOTE | 2019-03-01 07:40 | CT ---
ABDOMEN AND PELVIS CT WITH CONTRAST: Date: 03/01/19 COMPARISON: CT exams from 04/28/15 and 01/01/16. FINDINGS: There is enlargement of the visualized cardiac chambers. Partially imaged pulmonary parenchymal opaci ties are seen at the lung bases, incompletely assessed. Redemonstration of marked atrophy of the kidn eys bilaterally with numerous bilateral renal cysts. Dominant cyst of the lower pole left kidney, 3.3 cm, has increased in volume. Hyperdense cyst of the posterior left kidney is again seen. There is th in calcification associated with exophytic hyperdense cyst of the lower pole right kidney. Hypoattenu ation of hepatic parenchyma is too small to definitively characterize. There is evidence of prior cho lecystectomy. There is heterogeneous enhancement of the spleen, limiting its evaluation. No new adren al mass. Pancreas grossly stable in appearance. There is beam attenuation from overlying upper extrem ities, as well as body wall contact with the CT gantry which does limit evaluation. The bowel is not opacified by enteric contrast, precluding its assessment. A patulous duodenum is noted. There are col onic diverticula. Nonspecific scattered mild fat stranding/ascites of the abdomen is present. There i s mild free pelvic fluid. There is diffuse wall prominence of the rectosigmoid colon, incompletely ev aluated. There is atherosclerotic vascular disease. Diffuse heterogeneity of the osseous structures i s present, nonspecific and incompletely evaluated on the basis of this exam. IMPRESSION: 1. Wall prominence of the rectosigmoid colon. This could be due to incomplete distention. Recommend clinical correlation to exclude evidence of colitis. 2. Scattered nonspecific abdominal ascites and mesenteric fat stranding, as well as mild dependent f ree pelvic fluid. 3. No disseminated free air. 4. Multiple additional findings as detailed above. POS: SILAS
[2019-03-01] MEDS ORDERED: Diabetic Tussin 200 MG/10 ML UDCUP PO PRN (08:57)
[2019-03-01] MEDS ORDERED: Nitroglycerin 0.4 MG TAB (25 Tab Bottle) SL PRN (08:57)
[2019-03-01] MEDS ORDERED: cloNIDine 0.1 MG TAB PO PRN (08:57)
[2019-03-01] MEDS ORDERED: hydrALAZINE 20 MG/ML VIAL SLOW IVP PRN (08:57)
[2019-03-01] MEDS ORDERED: Sodium Chloride 0.65% Nasal 44 ML BOT EA NARE PRN (08:57)
[2019-03-01] MEDS ORDERED: Loratadine 10 MG TAB PO PRN (08:57)
[2019-03-01] MEDS ORDERED: Benzonatate 100 MG CAP PO PRN (08:57)
[2019-03-01] MEDS ORDERED: Cepastat Lozenges 1 LOZ PO PRN (08:57)
[2019-03-01] MEDS ORDERED: Prevnar 13-Val Conj/PF 0.5 ML SYRINGE IM ONE (09:00)
[2019-03-01] MEDS ORDERED: Pantoprazole 80 MG, Admixture Fee 1 EACH in Sodium Chloride 0.9% 100 ML IVP SCH (09:00)
[2019-03-01 09:49] LABS: #Lymphocytes 0.8 thou/uL (1.20-3.40); #Monocytes 0.3 thou/uL (0.11-0.59); #Neutrophils 2.2 thou/uL (1.40-6.50); %Basophils 0.3 % (0.0-1.0); %Eosinophils 0.7 % (0.0-10.0); %Lymphocytes 24.3 % (21.0-51.0); %Monocytes 9.4 % (0.0-10.0); %Neutrophils 65.3 % (42.0-75.0); Hemoglobin 8.4 g/dL (14.0-18.0); Mean Corpuscular HGB CONC 31.9 g/dL (32.0-36.0); Mean Corpuscular Hemoglobin 34.8 pg (27.0-31.0); Mean Platelet Volume 8.3 fL (7.4-10.4); Platelet Count 110 thou/uL (130-400); RBC Distribution Width 14.5 % (11.5-14.5); Red Blood Cell (RBC) Count 2.42 mill/uL (4.70-6.10); White Blood Cell (WBC) Count 3.4 thou/uL (4.8-10.8)
[2019-03-01 09:52] LABS: Anion Gap 14 mmol/L (10-20); BUN (Urea Nitrogen) 31 mg/dL (8.4-25.7); Calc. Creatinine Clearance 33 mL/min (70-130); Calcium 7.8 mg/dL (7.8-10.44); Carbon Dioxide 29 mmol/L (23-31); Chloride 95 mmol/L (98-107); Estimated GFR-MDRD 24; Glucose 77 mg/dL (80-115); Potassium 3.9 mmol/L (3.5-5.1); Sodium 134 mmol/L (136-145)
[2019-03-01] MEDS ORDERED: Raltegravir Potassium 400 MG TAB PO SCH (11:45)
[2019-03-01] MEDS ORDERED: ISOVUE-370 76%-LOCM 1 ML ONE (13:33)
--- NOTE | 2019-03-01 16:03 | HP ---
CHIEF COMPLAINT: Vomiting dark black material and passing dark tarry stools as well. HISTORY OF PRESENTING ILLNESS: Mr. Villeda is a 63-year-old male with past medical history of esophageal cancer, status post chemotherapy and currently in remission as well as history of end-stage renal disease, on hemodialysis; HIV, compliant with medications; pulmonary hypertension and COPD, who presented to the emergency room with above-mentioned complaint. History is mainly obtained by the patient himself and electronic medical records have been reviewed. He was recently admitted to our facility earlier this month from 02/18/2019 to 02/21/2019. At that time, he was treated for shortness of breath, likely COPD exacerbation. He underwent Cardiology evaluation as well as Pulmonary evaluation. He was dialyzed by his rubber stamp maker, Dr. Barrera during that hospitalization. He was evaluated for pancytopenia by Hematology as well. He was discharged in a stable condition. His antihypertensives were adjusted because of low blood pressure in the hospital and he was taken off minoxidil and terazosin. Now, he comes back to the ER last night complaining of dark tarry stools for 2 days and then throwing up blackish looking material earlier this morning. He denied any dizziness or lightheadedness. He reports that he has had history of bleeding ulcer, requiring cauterization that was done at [facility] in July 2018. He reports that at the same time he had a colonoscopy done, but is unsure of the results. He has been doing poorly since his discharge from the hospital recently, but is compliant with his medications and his dialysis. Upon presentation to the ER, he was hemodynamically stable with a blood pressure of 142/93 and pulse of 89. A CT scan of the abdomen and pelvis was done in the emergency room, which showed inflammation of the rectosigmoid area, suspected colitis. This was done with contrast. He also was found to have nonspecific fat stranding. He was given IV Protonix in the ER and was started on proton pump inhibitor drip. His hemoglobin upon presentation was 9.2, which was 9.7 on the day of discharge on 02/21/2019. His baseline is all over the place anywhere 7 to 9. Past medical history, past surgical history, family history, social history, please refer to the H and P dictated by Dr. Downing on 02/19/2019. No changes have happened since then. ALLERGIES: INCLUDE CLINDAMYCIN, PAROXETINE, CIPROFLOXACIN. HOME MEDICATIONS: Not reconciled yet. His discharge summary from 02/21/2019 was reviewed. Medication list is extensive. Please refer to the discharge summary dictated on 03/01/[address] Downing for complete list. He was taken off his amlodipine, minoxidil and terazosin at that time. He was sent out on Protonix 40 mg daily along with other medications. He is currently not on any blood thinner medications except for aspirin 325 mg daily. CODE STATUS: Full code discussed with the patient. REVIEW OF SYSTEMS: A 14-point review of system is done, it is negative except for those mentioned in the history and physical. LABORATORY DATA: Recheck hemoglobin is 8.4, WBCs 3.4, and platelet count of 110 with baseline platelet count anywhere from normal to 90s. 12-lead EKG by my review shows first-degree AV block, sinus rhythm 91 beats per minute. PHYSICAL EXAMINATION: VITAL SIGNS: Most recent vital signs; temperature 99.4, but he had a temperature of 100.2 earlier this morning. Pulse of 84, respirations 16, saturating 92% on room air, blood pressure 123/87. GENERAL: No acute distress. He is falling asleep, sitting up, but easily wakes up. He is awake, alert, and oriented x3 when woken up. HEENT: Mucous membrane is slightly dry. No oropharyngeal exudate or erythema. Head is normocephalic and atraumatic. Pupils are equal and reactive to light and accommodation. Extraocular movement intact. NECK: Supple without any lymphadenopathy, JVD, or bruit. CHEST: Clear to auscultation without any wheezing, rales, or rhonchi. HEART: Rate and rhythm are regular without any rubs or gallops. A grade 4/6 systolic murmur is heard. ABDOMEN: Soft, nontender, and nondistended. Positive bowel sounds. EXTREMITIES: Free of any cyanosis, clubbing, or edema. He has a left arm fistula with thrill and bruit. He has left AKA. NEUROLOGIC: Nonfocal. SKIN: Free of any rashes or bruises. Feels warm and dry to touch. IMPRESSION AND PLAN: 1. Melena and hematochezia. The patient is not on any blood thinners except for aspirin, but he does have history of peptic ulcer disease as per the patient himself. At this time, H and H seems to be stable and we will follow it carefully. We will continue the proton pump inhibitor drip and consult Gastroenterology for further recommendations. He is otherwise hemodynamically stable as well. He has been having some diarrhea, so we will send for stool cultures as well as clostridium difficile testing. His occult blood testing was positive in the ER. At this time, avoid any antibiotics until GI infection has been ruled in. He will be kept n.p.o. for now. 2. Human immunodeficiency virus. Restart home medications once confirmed. 3. End-stage renal disease, on hemodialysis. We will consult his rubber stamp maker, Dr. Barrera for maintenance hemodialysis. 4. Pancytopenia. He has had workup done in the past with Hematology earlier this month. This seems to be multifactorial in nature including renal failure, possibly occult GI bleed and history of chemotherapy for esophageal cancer recently. 5. Chronic obstructive pulmonary disease, currently stable. We will use nebulizers as needed. 6. Hypertension, stable. Restart home medications once confirmed and add p.r.n. antihypertensives. 7. History of esophageal cancer, status post chemotherapy. The patient reports that he is in remission and follows up at [facility] [place]. 8. Deep venous thrombosis and gastrointestinal prophylaxis. DISPOSITION: Mr. Villeda is currently being admitted to the hospital for possible GI bleed, suspected upper. He is hemodynamically stable. Estimated length of stay at least 2 to 3 midnights. Job ID: [id number]
[2019-03-01] MEDS ORDERED: Heparin 5,000 UNITS/ML VIAL SC SCH (21:00)
[2019-03-01] MEDS: Raltegravir Potassium 400 MG TAB PO SCH (21:09)
--- NOTE | 2019-03-01 22:17 | CON ---
DATE OF CONSULTATION: CONSULTING PHYSICIAN: Bruce Archuleta MD REASON FOR CONSULTATION: Need for maintenance hemodialysis. IMPRESSION: 1. End-stage renal disease, hemodialysis dependent on a Monday, , and Monday schedule. 2. Hematemesis, possibly related to the patient's history of esophagea carcinoma. PLAN: The patient to be dialyzed tomorrow as there is no emergent indication for dialysis today with no heparin. HISTORY OF PRESENT ILLNESS: History is that of a 63-year-old gentleman with a known history of esophageal carcinoma status post chemo/radiotherapy, who presented here with vomiting of dark black material, possibly blood as well as diarrhea. As a result of the need for maintenance dialysis, decision was taken to involve Renal in the management of this case. PAST MEDICAL HISTORY: Significant for end-stage renal disease, hemodialysis dependent, recent history of esophageal carcinoma status post chemo/radiotherapy, HIV infection, hypertension. MEDICATIONS: Reviewed and as documented on [employer]. ALLERGIES: TO CLINDAMYCIN, PAROXETINE, AND CIPROFLOXACIN. FAMILY HISTORY: Not significantly related to present illness. SOCIAL HISTORY: No alcohol, no tobacco, no illicit drug use. REVIEW OF SYSTEMS: As documented in the body of the history. All the other systems were reviewed and found not to be significantly related to presenting illness. PHYSICAL EXAMINATION: GENERAL: The patient was found not to be in any obvious distress, noted with the following vital signs. VITAL SIGNS: Afebrile, temperature 99.4, pulse 84, respiratory rate of 16, O2 saturations 92% with blood pressure of 123/87. HEENT: Unremarkable. Moist oral mucosa. NECK: Supple. No conjunctival injection or icterus. CARDIOVASCULAR: First and second heart sounds were heard. RESPIRATORY: Clear to auscultation. DIGESTIVE SYSTEM: Revealed a benign abdomen with positive bowel sounds. EXTREMITIES: No peripheral edema. SKIN: No new gross rash. LYMPHATICS: No peripheral lymphadenopathy. SUMMARY: A 63-year-old gentleman with end-stage renal disease, hemodialysis dependent who presented here with hematemesis. Thank you for this consultation. We will follow with you. Job ID: [id number]
[2019-03-02 05:02] LABS: #Eosinphils 0.1 thou/uL (0.0-0.7); #Lymphocytes 0.7 thou/uL (1.20-3.40); #Monocytes 0.3 thou/uL (0.11-0.59); #Neutrophils 1.7 thou/uL (1.40-6.50); %Basophils 0.8 % (0.0-1.0); %Eosinophils 3.2 % (0.0-10.0); %Lymphocytes 23.9 % (21.0-51.0); %Monocytes 9.6 % (0.0-10.0); %Neutrophils 62.5 % (42.0-75.0); Hemoglobin 8.7 g/dL (14.0-18.0); Mean Corpuscular HGB CONC 30.5 g/dL (32.0-36.0); Mean Corpuscular Hemoglobin 34.5 pg (27.0-31.0); Mean Platelet Volume 9.2 fL (7.4-10.4); Platelet Count 114 thou/uL (130-400); RBC Distribution Width 14.9 % (11.5-14.5); Red Blood Cell (RBC) Count 2.51 mill/uL (4.70-6.10); White Blood Cell (WBC) Count 2.7 thou/uL (4.8-10.8)
[2019-03-02 05:12] LABS: Anion Gap 17 mmol/L (10-20); BUN (Urea Nitrogen) 37 mg/dL (8.4-25.7); Calc. Creatinine Clearance 26 mL/min (70-130); Calcium 7.8 mg/dL (7.8-10.44); Carbon Dioxide 22 mmol/L (23-31); Chloride 95 mmol/L (98-107); Estimated GFR-MDRD 18; Glucose 115 mg/dL (80-115); Potassium 4.4 mmol/L (3.5-5.1); Sodium 130 mmol/L (136-145)
[2019-03-02] MEDS ORDERED: Midazolam HCl 2 mg/2 ml Vial ONE (09:33)
[2019-03-02] MEDS ORDERED: Glycopyrrolate 0.2 MG/ML 5 ML SYRINGE ONE ×2 (09:33→16:18)
[2019-03-02] MEDS ORDERED: Ketamine 50 MG/ML (10ML VIAL) ONE (09:33)
[2019-03-02] MEDS ORDERED: Promethazine HCl 25 MG/ML VIAL IM PRN (09:56)
[2019-03-02] MEDS ORDERED: Promethazine HCl 25 MG/ML VIAL SLOW IVP PRN (09:56)
[2019-03-02] MEDS ORDERED: Ondansetron HCl/PF 4 MG/2 ML Vial IVP PRN (09:56)
--- NOTE | 2019-03-02 11:01 | OP ---
DATE OF PROCEDURE: 03/02/2019 PROCEDURE PERFORMED: Esophagogastroduodenoscopy with biopsy. PREOPERATIVE DIAGNOSIS: Hematemesis and history of esophageal cancer, status post radiation and chemotherapy. DESCRIPTION OF PROCEDURE: Informed consent was obtained from the patient. He was sedated with total intravenous anesthesia. The bite block was placed and the endoscope was advanced easily to the second portion of the duodenum and retroflexion was performed in the stomach. The esophagus was normal overall. The Z-line was regular and there were no signs of Clark's residual. I took 4 biopsies around the circumference of the GE junction. Three of them were concentrated on 1 erythematous section which I would suspect is the area of previous treatment with radiation. No residual nodularity or obvious polyp or tumor was present. The stomach had severe erythematous gastritis throughout, however, was worse in the fundus. This could be related to the previous radiation; however, it is possible that there is a component of portal hypertensive gastropathy. Biopsies were obtained from the stomach to rule out H. pylori. The first and second portions of the duodenum were normal. IMPRESSION: 1. Diffuse severe erythematous friable gastritis, biopsied. This is most likely bleeding source of the coffee-grounds emesis. It is worse in the fundus which may be related to his recent radiation or could be suggestive of portal hypertensive gastropathy. 2. The Z-line appears regular. Multiple biopsies were obtained at the GE junction to rule out residual cancer or dysplasia. No focal lesion or nodularity was present. RECOMMENDATIONS: 1. Proton pump inhibitor twice daily. 2. Advance diet. 3. Obtain records from his previous endoscopies and pathology at [facility] over the last year. Job ID: [id number]
--- NOTE | 2019-03-02 13:07 | PDOC.PN ---
- Subjective Encounter Start Date: 03/02/19 Encounter Start Time: 13:05 Subjective: feels OK. seen ad examined in dialysis -: no vomiting or stools since admission.no abd pain - Objective Resuscitation Status - Order Detail: 03/01/19 10:57 Resuscitation Status Routine Resuscitation Status: FULL: Full Resuscitation Discussed with: discussed with patient MAR Reviewed: Yes Vital Signs & Weight: Vital Signs (12 hours) Temp Pulse Resp BP Pulse Ox 03/02/19 08:10 98.2 F 81 18 147/92 H 94 L 03/02/19 08:00 94 L 03/02/19 04:51 98.8 F 82 16 119/82 94 L Weight Weight 212 lb 1.355 oz I&O: 03/01/19 03/02/19 03/03/19 06:59 06:59 06:59 Intake Total 930 Balance 930 Result Diagrams: 03/02/19 04:23 03/02/19 04:23 Additional Labs: Laboratory Tests 02/20/19 02/21/19 03/01/19 05:59 04:42 02:38 WBC 3.3 L Hgb 10.2 L 9.7 L 9.2 L Plt Count 93 L 92 L 127 L 03/01/19 03/02/19 09:18 04:23 WBC 3.4 L 2.7 L Hgb 8.4 L 8.7 L Plt Count 110 L 114 L Phys Exam - Physical Examination Constitutional: NAD HEENT: PERRLA, moist MMs, sclera anicteric, oral pharynx no lesions Neck: no nodes, no JVD, supple, full ROM Respiratory: no wheezing, no rales, no rhonchi, wheezing present, clear to auscultation bilateral Cardiovascular: RRR, no significant murmur, no rub Gastrointestinal: soft, non-tender, no distention, positive bowel sounds Musculoskeletal: no edema, pulses present Neurological: non-focal, normal sensation, moves all 4 limbs Psychiatric: normal affect, A&O x 3 Skin: no rash Dx/Plan (1) GI bleed Code(s): K92.2 - GASTROINTESTINAL HEMORRHAGE, UNSPECIFIED Status: Acute Comment: s/p EGD showing friable mucosa.H/H stable. cont PPI (2) Pancytopenia Code(s): D61.818 - OTHER PANCYTOPENIA Status: Chronic Comment: likley due to ChemoRx .stable. will monitor (3) DM (diabetes mellitus) Code(s): E11.9 - TYPE 2 DIABETES MELLITUS WITHOUT COMPLICATIONS Status: Chronic (4) ESRD (end stage renal disease) on dialysis Code(s): N18.6 - END STAGE RENAL DISEASE; Z99.2 - DEPENDENCE ON RENAL DIALYSIS Status: Chronic Comment: Undergoing dialysis per nephrology service (5) HIV (human immunodeficiency virus infection) Code(s): B20 - HUMAN IMMUNODEFICIENCY VIRUS [HIV] DISEASE Status: Chronic Comment: Continue HAART (6) HTN (hypertension) Code(s): I10 - ESSENTIAL (PRIMARY) HYPERTENSION Status: Chronic Qualifiers: Hypertension type: essential hypertension Qualified Code(s): I10 - Essential (primary) hypertension Comment: titrate antihypertensives as needed - Plan PT/OT, DVT proph w/heparin, DVT proph w/SCDs H/H stable. awaiting Stomach Bx results.cont PPI -: reconcile home meds -: am labs -: hemodialysis per schedule -: advance diet as tolerated.stool studies pending * . Review of Systems - Review of Systems Constitutional: weakness. negative: fever, chills, sweats, malaise, other Respiratory: negative: Cough, Dry, Shortness of Breath, Hemoptysis, SOB with Excertion, Pleuritic Pain, Sputum, Wheezing Cardiovascular: negative: chest pain, palpitations, orthopnea, paroxysmal nocturnal dyspnea, edema, light headedness, other Gastrointestinal: negative: Nausea, Vomiting, Abdominal Pain, Diarrhea, Constipation, Melena, Hematochezia, Other Genitourinary: negative: Dysuria, Frequency, Incontinence, Hematuria, Retention , Other Musculoskeletal: negative: Neck Pain, Shoulder Pain, Arm Pain, Back Pain, Hand Pain, Leg Pain, Foot Pain, Other Neurological: negative: Weakness, Numbness, Incoordination, Change in Speech, Confusion, Seizures, Other - Medications/Allergies Allergies/Adverse Reactions: Allergies Allergy/AdvReac Type Severity Reaction Status Date / Time clindamycin Allergy Intermediate CAUSED Verified 02/19/19 15:50 HYPERKALEMIA paroxetine HCl [From Paxil] Allergy Intermediate PT STATES Verified 02/19/19 15: 50 IT MADE HIM VERY CRAZY IN HEAD ciprofloxacin Allergy Verified 02/19/19 15:50 Medications: Current Medications Albuterol/Ipratropium (Duoneb) 3 ml NEB [id number] PRN PRN Reason: SOB &/or Wheezing Benzonatate (Tessalon) 100 mg PO Q6H PRN PRN Reason: Cough Clonidine (Catapres) 0.1 mg PO Q4H PRN PRN Reason: SBP >160 ____ Etravirine (Intelence) 200 mg PO BID-PC [facility] Guaifenesin (Robitussin Sf) 200 mg PO Q4H PRN PRN Reason: Cough Hydralazine HCl (Apresoline) 10 mg SLOW IVP Q4H PRN PRN Reason: SBP > 180 and HR < 70 Pantoprazole Sodium 80 mg/Miscellaneous Medication 1 each/ Sodium Chloride 100 mls @ 10 mls/hr IVP INF [facility] Loratadine (Claritin) 10 mg PO DAILYPRN PRN PRN Reason: Sinus Symptoms Nitroglycerin (Nitrostat) 0.4 mg SL Q5MIN PRN PRN Reason: Chest Pain Ondansetron HCl (Zofran) 4 mg IVP Q6H PRN PRN Reason: Nausea/Vomiting Ondansetron HCl (Zofran Odt) 4 mg SL Q6H PRN PRN Reason: Nausea/Vomiting Raltegravir (Isentress) 400 mg PO BID [facility] Last Admin: 03/01/19 21:09 Dose: 400 mg Sodium Chloride ([place] Nasal [place] 0.65%) 0 ml EA NARE QIDPRN PRN PRN Reason: Nasal Congestion Throat Lozenges (Cepastat Lozenges) 1 deyvi PO Q2H PRN PRN Reason: Sore Throat Zidovudine (Retrovir) 100 mg PO TID [facility] Last Admin: 03/01/19 21:08 Dose: 100 mg
--- NOTE | 2019-03-02 14:08 | EKG ---
Test Reason : Blood Pressure : / mmHG Vent. Rate : 091 BPM Atrial Rate : 091 BPM P-R Int : 242 ms QRS Dur : 110 ms QT Int : 396 ms P-R-T Axes : 025 092 177 degrees QTc Int : 487 ms Sinus rhythm with 1st degree A-V block Possible Right ventricular hypertrophy Inferior infarct , age undetermined Marked ST abnormality, possible septal subendocardial injury Abnormal ECG Confirmed by JOHN RODRIGUEZ ([id number]), newspaper managing editor CHELSEA NOWAK ([id number]) on 03/02/2019 2:08:06 PM Referred By: Confirmed By:JOHN RODRIGUEZ
[2019-03-02] MEDS ORDERED: PROPOFOL 200 MG/20 ML VIAL ONE (16:18)
[2019-03-02] MEDS: Raltegravir Potassium 400 MG TAB PO SCH ×2 (16:47→21:33)
[2019-03-02] MEDS: Ondansetron ODT 4 MG TAB SL PRN (21:32)
[2019-03-02] MEDS ORDERED: HYDROcodone/Acetaminophen 5/325 mg Tablet PO SCH (23:00)
[2019-03-02] MEDS: Calcium Carbonate 500 MG ChewTAB PO PRN (23:01)
[2019-03-03] MEDS: HYDROcodone/Acetaminophen 5/325 mg Tablet PO PRN (04:48)
[2019-03-03 05:05] LABS: #Eosinphils 0.1 thou/uL (0.0-0.7); #Lymphocytes 0.9 thou/uL (1.20-3.40); #Monocytes 0.4 thou/uL (0.11-0.59); #Neutrophils 1.8 thou/uL (1.40-6.50); %Eosinophils 2.1 % (0.0-10.0); %Lymphocytes 27.6 % (21.0-51.0); %Monocytes 11.6 % (0.0-10.0); %Neutrophils 57.8 % (42.0-75.0); Hemoglobin 8.2 g/dL (14.0-18.0); Mean Corpuscular HGB CONC 30.9 g/dL (32.0-36.0); Mean Corpuscular Hemoglobin 34.7 pg (27.0-31.0); Mean Platelet Volume 8.1 fL (7.4-10.4); Platelet Count 128 thou/uL (130-400); RBC Distribution Width 14.8 % (11.5-14.5); Red Blood Cell (RBC) Count 2.37 mill/uL (4.70-6.10); White Blood Cell (WBC) Count 3.1 thou/uL (4.8-10.8)
[2019-03-03 05:25] LABS: Anion Gap 12 mmol/L (10-20); BUN (Urea Nitrogen) 23 mg/dL (8.4-25.7); Calc. Creatinine Clearance 34 mL/min (70-130); Calcium 8.3 mg/dL (7.8-10.44); Carbon Dioxide 30 mmol/L (23-31); Chloride 99 mmol/L (98-107); Estimated GFR-MDRD 25; Glucose 104 mg/dL (80-115); Sodium 137 mmol/L (136-145)
[2019-03-03] MEDS: Raltegravir Potassium 400 MG TAB PO SCH ×2 (09:01→21:05)
[2019-03-03] MEDS ORDERED: Ipratropium Bromide 2.5 ml Neb NEB PRN (09:11)
[2019-03-03] MEDS ORDERED: PROVENTIL INHALER 6.7 G (200 INHALATIONS) INH PRN (09:15)
[2019-03-03] MEDS: Folic Acid 1 MG TAB PO SCH (10:46)
--- NOTE | 2019-03-03 14:57 | PDOC.PN ---
- Subjective Encounter Start Date: 03/03/19 Encounter Start Time: 14:55 Subjective: feels much better.poor appetite though.no BM so far -: no vomiting - Objective Resuscitation Status - Order Detail: 03/01/19 10:57 Resuscitation Status Routine Resuscitation Status: FULL: Full Resuscitation Discussed with: discussed with patient MAR Reviewed: Yes Vital Signs & Weight: Vital Signs (12 hours) Temp Pulse Resp BP Pulse Ox 03/03/19 12:30 98.4 F 82 20 135/86 94 L 03/03/19 08:20 98.4 F 80 18 141/88 H 93 L 03/03/19 04:10 98.0 F 77 12 127/79 96 Weight Weight 212 lb 1.355 oz I&O: 03/02/19 03/03/19 03/04/19 06:59 06:59 06:59 Intake Total 930 720 720 Balance 930 720 720 Result Diagrams: 03/03/19 04:45 03/03/19 04:45 Phys Exam - Physical Examination Constitutional: NAD HEENT: PERRLA, moist MMs, sclera anicteric, oral pharynx no lesions Neck: no nodes, no JVD, supple, full ROM Respiratory: no wheezing, no rales, no rhonchi, clear to auscultation bilateral Cardiovascular: RRR, no significant murmur, no rub Gastrointestinal: soft, non-tender, no distention, positive bowel sounds Musculoskeletal: no edema, pulses present Neurological: non-focal, normal sensation, moves all 4 limbs Psychiatric: normal affect, A&O x 3 Skin: no rash Dx/Plan (1) GI bleed Code(s): K92.2 - GASTROINTESTINAL HEMORRHAGE, UNSPECIFIED Status: Acute Comment: s/p EGD showing friable mucosa.H/H stable. cont PPI Bx pending (2) Pancytopenia Code(s): D61.818 - OTHER PANCYTOPENIA Status: Chronic Comment: likley due to ChemoRx .stable. will monitor (3) DM (diabetes mellitus) Code(s): E11.9 - TYPE 2 DIABETES MELLITUS WITHOUT COMPLICATIONS Status: Chronic (4) ESRD (end stage renal disease) on dialysis Code(s): N18.6 - END STAGE RENAL DISEASE; Z99.2 - DEPENDENCE ON RENAL DIALYSIS Status: Chronic Comment: Undergoing dialysis per nephrology service (5) HIV (human immunodeficiency virus infection) Code(s): B20 - HUMAN IMMUNODEFICIENCY VIRUS [HIV] DISEASE Status: Chronic Comment: Continue HAART (6) HTN (hypertension) Code(s): I10 - ESSENTIAL (PRIMARY) HYPERTENSION Status: Chronic Qualifiers: Hypertension type: essential hypertension Qualified Code(s): I10 - Essential (primary) hypertension Comment: titrate antihypertensives as needed - Plan DVT proph w/SCDs add nepro -: stool studies pending.no sample yet -: cont PPI -: DC likely tomorrow if Bx results are back.HD stable * . Review of Systems - Review of Systems Constitutional: weakness. negative: fever, chills, sweats, malaise, other Cardiovascular: negative: chest pain, palpitations, orthopnea, paroxysmal nocturnal dyspnea, edema, light headedness, other Gastrointestinal: negative: Nausea, Vomiting, Abdominal Pain, Diarrhea, Constipation, Melena, Hematochezia, Other Genitourinary: negative: Dysuria, Frequency, Incontinence, Hematuria, Retention , Other Musculoskeletal: negative: Neck Pain, Shoulder Pain, Arm Pain, Back Pain, Hand Pain, Leg Pain, Foot Pain, Other Neurological: negative: Weakness, Numbness, Incoordination, Change in Speech, Confusion, Seizures, Other - Medications/Allergies Allergies/Adverse Reactions: Allergies Allergy/AdvReac Type Severity Reaction Status Date / Time clindamycin Allergy Intermediate CAUSED Verified 02/19/19 15:50 HYPERKALEMIA paroxetine HCl [From Paxil] Allergy Intermediate PT STATES Verified 02/19/19 15: 50 IT MADE HIM VERY CRAZY IN HEAD ciprofloxacin Allergy Verified 02/19/19 15:50 Medications: Current Medications Hydrocodone Bitart/Acetaminophen ([place] 5/325) 1 tab PO Q4H PRN PRN Reason: Severe Pain (5-10) Last Admin: 03/03/19 04:48 Dose: 1 tab Albuterol Sulfate (Proventil Hfa) 2 puff INH Q4H PRN PRN Reason: SOB &/or Wheezing Albuterol/Ipratropium (Duoneb) 3 ml NEB [id number] PRN PRN Reason: SOB &/or Wheezing Benzonatate (Tessalon) 100 mg PO Q6H PRN PRN Reason: Cough Calcium Carbonate (Tums) 1,000 mg PO DAILYPRN PRN PRN Reason: Heartburn or Indigestion Last Admin: 03/02/19 23:01 Dose: 1,000 mg Carvedilol (Coreg) 3.125 mg PO BID [facility] Clonidine (Catapres) 0.1 mg PO Q4H PRN PRN Reason: SBP >160 ____ Cyanocobalamin (Vitamin B-12) 1,000 mcg PO DAILY [facility] Etravirine (Intelence) 200 mg PO BID-PC [facility] Last Admin: 03/03/19 09:00 Dose: 200 mg Fluticasone Propionate (Flonase Nasal [place]) 0 gm NASAL DAILY [facility] Folic Acid (Folvite) 1 mg PO DAILY [facility] Last Admin: 03/03/19 10:46 Dose: Not Given Gabapentin (Neurontin) 300 mg PO HS [facility] Guaifenesin (Robitussin Sf) 200 mg PO Q4H PRN PRN Reason: Cough Hydralazine HCl (Apresoline) 10 mg SLOW IVP Q4H PRN PRN Reason: SBP > 180 and HR < 70 Pantoprazole Sodium 80 mg/Miscellaneous Medication 1 each/ Sodium Chloride 100 mls @ 10 mls/hr IVP INF [facility] Ipratropium [place] (Atrovent) 2.5 ml NEB [id number] PRN PRN Reason: SOB &/or Wheezing Loratadine (Claritin) 10 mg PO DAILYPRN PRN PRN Reason: Sinus Symptoms Nitroglycerin (Nitrostat) 0.4 mg SL Q5MIN PRN PRN Reason: Chest Pain Non-Formulary Medication (Calcium Lactate [Calcium Lactate]) 650 mg PO DAILY [facility] Nortriptyline HCl (Pamelor) 25 mg PO HS [facility] Ondansetron HCl (Zofran) 4 mg IVP Q6H PRN PRN Reason: Nausea/Vomiting Ondansetron HCl (Zofran Odt) 4 mg SL Q6H PRN PRN Reason: Nausea/Vomiting Last Admin: 03/02/19 21:32 Dose: 4 mg Pantoprazole Sodium (Protonix) 40 mg PO BID [facility] Last Admin: 03/03/19 09:00 Dose: 40 mg Pravastatin Sodium (Pravachol) 20 mg PO QPM [facility] Raltegravir (Isentress) 400 mg PO BID [facility] Last Admin: 03/03/19 09:01 Dose: 400 mg Sodium Chloride ([place] Nasal [place] 0.65%) 0 ml EA NARE QIDPRN PRN PRN Reason: Nasal Congestion Throat Lozenges (Cepastat Lozenges) 1 deyvi PO Q2H PRN PRN Reason: Sore Throat Zidovudine (Retrovir) 100 mg PO TID [facility] Last Admin: 03/03/19 09:00 Dose: 100 mg
--- NOTE | 2019-03-03 16:51 | PRG ---
DATE OF SERVICE: 03/03/2019 SUBJECTIVE: Mr. Villeda does not feel well in general today, but he is tolerating a solid diet today. He has no nausea or vomiting. OBJECTIVE: VITAL SIGNS: Temperature is 98.4, pulse 82, blood pressure 135/86. GENERAL: He has had no further diarrhea since admission, but he now feels like he might need to have a bowel movement, but has not been able to pass one today. He is in no acute distress. Awake and alert. LUNGS: clear to auscultation bilaterally. HEART: regular rate and rhythm without murmur. ABDOMEN: soft, nontender, nondistended. Bowel sounds are present. EXTREMITIES: No lower extremity edema. IMPRESSION: 1. Hematemesis and esophageal cancer. Endoscopy shows no significant bleeding source, but he did have severe erythematous friable gastritis. There was no evidence of residual cancer endoscopically. Biopsies were obtained from the GE junction. 2. History of esophageal cancer. He has been treated with radiation and chemotherapy. For now, he appears to be doing okay from a cancer standpoint. 3. Anemia, stable. RECOMMENDATIONS: 1. Pantoprazole 40 mg twice daily p.o. 2. I will sign off. Please call if GI can be of assistance. He should be ready to discharge soon from a GI perspective. 3. Await histopathology. This can be followed up as an outpatient. Job ID: [id number]
[2019-03-03] MEDS: Ondansetron ODT 4 MG TAB SL PRN (18:39)
[2019-03-03] MEDS: Pravastatin Sodium 40 MG TAB PO SCH (21:00)
[2019-03-03] MEDS: Carvedilol 3.125 MG TAB PO SCH (21:00)
[2019-03-03] MEDS: Gabapentin 300 MG CAP PO SCH (21:00)
[2019-03-03] MEDS: Nortriptyline HCl 25 MG CAP PO SCH (21:01)
[2019-03-04 03:45] LABS: Hemoglobin 8.1 g/dL (14.0-18.0)
[2019-03-04] MEDS: Calcium Carbonate 500 MG ChewTAB PO PRN (04:05)
[2019-03-04] MEDS: Cyanocobalamin (Vitamin B-12) 1,000 MCG TAB PO SCH (08:11)
[2019-03-04] MEDS: Folic Acid 1 MG TAB PO SCH (08:11)
[2019-03-04] MEDS: Raltegravir Potassium 400 MG TAB PO SCH ×2 (08:11→20:23)
[2019-03-04] MEDS: Carvedilol 3.125 MG TAB PO SCH ×2 (08:12→20:24)
[2019-03-04] MEDS: Fluticasone Propionate Nasal Spray 16 gm Bottle NASAL SCH (08:12)
--- NOTE | 2019-03-04 08:54 | CON ---
DATE OF CONSULTATION: 03/01/2019 CHIEF COMPLAINT: Black stools, weakness and vomiting. HISTORY OF PRESENT ILLNESS: Mr. Villeda is a 63-year-old man who was just discharged from the hospital a week ago when he was admitted for COPD exacerbation. About the time he was discharged from the hospital last week, he started having black liquidy stools around 3 times per day after meals. Over the last couple of days, he started having intermittent vomiting around once per day for the last few days except for today. He has had no red hematemesis; however, the vomit appeared black. The stools appeared black. He has had some periumbilical aching abdominal pain that has been somewhat constant since the diarrhea started. He has had no fever or ongoing chest pain or shortness of breath. He reports history of esophageal cancer having been diagnosed around last July at [facility] when he underwent EGD for a bleeding ulcer. He has a known history of Clark's esophagus in the more distant past. He was treated for the esophageal cancer with radiation and chemotherapy. He was followed by Dr. Bishop at [facility]. When he presented with the bleeding back in July, he also underwent colonoscopy and reports that several polyps were removed. PAST MEDICAL HISTORY: End-stage renal disease, on hemodialysis, COPD, hypertension, diabetes mellitus, HIV, hyperlipidemia, esophageal cancer, thyroid cysts. PAST SURGICAL HISTORY: Hemorrhoidectomy, left above the knee amputation, prior knee replacement, hernia repair, tonsillectomy, elbow surgery, dialysis shunt, EGD, colonoscopy. HABITS: Occasional alcohol. No smoking. No drugs. FAMILY HISTORY: Negative for GI malignancy. ALLERGIES: 1. CIPROFLOXACIN. 2. CLINDAMYCIN. 3. PAXIL. MEDICATIONS: Currently as an inpatient include: Zidovudine and pantoprazole IV. At home he had been on: 1. Aspirin. 2. Acetaminophen with codeine. 3. Carvedilol. 4. Albuterol. 5. Etravirine. 6. Zidovudine. 7. Fluticasone. 8. Folic acid. 9. Gabapentin. 10. Lisinopril. 11. Nortriptyline. 12. Pantoprazole 40 mg daily. 13. MiraLAX. 14. Pravastatin. 15. Spiriva. 16. Hydralazine. 17. Raltegravir. REVIEW OF SYSTEMS: Negative x10 systems reviewed except as stated in the history of present illness. PHYSICAL EXAMINATION: VITAL SIGNS: Maximum temperature 100.2, this morning, current temperature 98.6, pulse 76, blood pressure 138/84. GENERAL: He is in no acute distress. Alert and oriented x3. EYES: Have no scleral icterus, has exophthalmos. Oropharynx is clear without lesions. LUNGS: Clear to auscultation bilaterally. NECK: No cervical or supraclavicular lymphadenopathy. HEART: Regular rate and rhythm without murmur. ABDOMEN: Soft. Minimal tenderness around the periumbilical region without guarding. Bowel sounds are present. EXTREMITIES: Trace right lower extremity edema, status post left [id number] amputation. Cranial nerves are grossly intact. LABORATORY DATA: White blood cell count 3.3, hemoglobin 9.2, hemoglobin at discharge on 02/21/2019 was 9.7, platelets 127. INR 1.1. Creatinine 3.15. BNP 3499, bilirubin 0.7, AST 13, ALT 7, alkaline phosphatase 185. IMPRESSION: 1. Apparent gastrointestinal bleed with black hematemesis and black stools. He has chronic anemia with his hemoglobin currently stable compared to the discharge hemoglobin from a week ago. He has a history of a bleeding ulcer reportedly from last July. Also history of esophageal cancer treated with radiation and chemotherapy. 2. Esophageal cancer. 3. Abnormal CT scan showing some thickening of the rectum. This may be just from underdistention. He just had a colonoscopy around last July of 2018 at [facility] and had some polyps removed. I will request that record. RECOMMENDATIONS: 1. Continue proton pump inhibitor. 2. Planned EGD for tomorrow morning. 3. Obtain the last colonoscopy report. Job ID: [id number]
[2019-03-04] MEDS: CALCIUM LACTATE 650 MG PO SCH (09:00)
[2019-03-04] MEDS: Vancomycin HCl 25 MG/ML Oral PO SCH ×3 (10:18→22:24)
--- NOTE | 2019-03-04 16:11 | PDOC.PN ---
- Subjective Encounter Start Date: 03/04/19 Encounter Start Time: 16:09 Subjective: now having multiple boits of loose dairrhea a/w abdominal cramps -: no N/V.poor appetite - Objective Resuscitation Status - Order Detail: 03/01/19 10:57 Resuscitation Status Routine Resuscitation Status: FULL: Full Resuscitation Discussed with: discussed with patient MAR Reviewed: Yes Vital Signs & Weight: Vital Signs (12 hours) Temp Pulse Resp BP Pulse Ox 03/04/19 08:00 98.1 F 80 18 150/96 H 94 L 03/04/19 06:47 94 L Weight Weight 212 lb 1.355 oz I&O: 03/03/19 03/04/19 03/05/19 06:59 06:59 06:59 Intake Total 720 1080 480 Balance 720 1080 480 Result Diagrams: 03/04/19 03:35 03/03/19 04:45 Additional Labs: Microbiology 03/04/19 03:05 Stool - Loose Campylobacter Antigen Assay - Final 03/04/19 03:05 Stool - Loose Shiga Toxin Test - Final 03/04/19 03:05 Stool Stool Lactoferrin - Final 03/04/19 03:05 Stool C. difficile GDH Antigen & Toxins - Final 03/01/19 02:20 Stool - Pending Stool Occult Blood (CARLO) - Final Phys Exam - Physical Examination Constitutional: NAD HEENT: PERRLA, moist MMs, sclera anicteric, oral pharynx no lesions Neck: no nodes, no JVD, supple, full ROM Respiratory: no wheezing, no rales, no rhonchi Cardiovascular: RRR, no significant murmur Gastrointestinal: soft, non-tender, positive bowel sounds mild distension but soft Musculoskeletal: no edema, pulses present Left BKA Neurological: non-focal, normal sensation, moves all 4 limbs Psychiatric: normal affect, A&O x 3 Skin: no rash Dx/Plan (1) C. difficile colitis Code(s): A04.72 - ENTEROCOLITIS D/T CLOSTRIDIUM DIFFICILE, NOT SPCF RECUR Status: Acute Comment: Positive antigen and toxin.Start Vancomycin PO QID and consult ID given immunocompromised status. recheck CD4 and HIV Viral load .supportive care (2) GI bleed Code(s): K92.2 - GASTROINTESTINAL HEMORRHAGE, UNSPECIFIED Status: Acute Comment: s/p EGD showing friable mucosa.H/H stable. cont PPI Bx pending (3) Pancytopenia Code(s): D61.818 - OTHER PANCYTOPENIA Status: Chronic Comment: likley due to ChemoRx .stable. will monitor (4) DM (diabetes mellitus) Code(s): E11.9 - TYPE 2 DIABETES MELLITUS WITHOUT COMPLICATIONS Status: Chronic (5) ESRD (end stage renal disease) on dialysis Code(s): N18.6 - END STAGE RENAL DISEASE; Z99.2 - DEPENDENCE ON RENAL DIALYSIS Status: Chronic Comment: Undergoing dialysis per nephrology service (6) HIV (human immunodeficiency virus infection) Code(s): B20 - HUMAN IMMUNODEFICIENCY VIRUS [HIV] DISEASE Status: Chronic Comment: Continue HAART (7) HTN (hypertension) Code(s): I10 - ESSENTIAL (PRIMARY) HYPERTENSION Status: Chronic Qualifiers: Hypertension type: essential hypertension Qualified Code(s): I10 - Essential (primary) hypertension Comment: titrate antihypertensives as needed - Plan continue antibiotics, PT/OT, incentive spirometry, DVT proph w/SCDs Vancomycin 250 QID.discussed w GI and ID. -: HD stable. -: hemodialysis per schedule. am labs -: recheck HIV status given new infection.? need for further Oppurtunistic -: stool pathogen testing required or not as he is immunocompromised. * . Review of Systems - Review of Systems Constitutional: weakness, malaise. negative: fever, chills, sweats, other Respiratory: negative: Cough, Dry, Shortness of Breath, Hemoptysis, SOB with Excertion, Pleuritic Pain, Sputum, Wheezing Cardiovascular: negative: chest pain, palpitations, orthopnea, paroxysmal nocturnal dyspnea, edema, light headedness, other Gastrointestinal: Abdominal Pain, Diarrhea. negative: Nausea, Vomiting, Constipation, Melena, Hematochezia, Other Genitourinary: negative: Dysuria, Frequency, Incontinence, Hematuria, Retention , Other Neurological: negative: Weakness, Numbness, Incoordination, Change in Speech, Confusion, Seizures, Other - Medications/Allergies Allergies/Adverse Reactions: Allergies Allergy/AdvReac Type Severity Reaction Status Date / Time clindamycin Allergy Intermediate CAUSED Verified 02/19/19 15:50 HYPERKALEMIA paroxetine HCl [From Paxil] Allergy Intermediate PT STATES Verified 02/19/19 15: 50 IT MADE HIM VERY CRAZY IN HEAD ciprofloxacin Allergy Verified 02/19/19 15:50 Medications: Current Medications Hydrocodone Bitart/Acetaminophen ([place] 5/325) 1 tab PO Q4H PRN PRN Reason: Severe Pain (5-10) Last Admin: 03/03/19 04:48 Dose: 1 tab Albuterol Sulfate (Proventil Hfa) 2 puff INH Q4H PRN PRN Reason: SOB &/or Wheezing Albuterol/Ipratropium (Duoneb) 3 ml NEB [id number] PRN PRN Reason: SOB &/or Wheezing Benzonatate (Tessalon) 100 mg PO Q6H PRN PRN Reason: Cough Calcium Carbonate (Tums) 1,000 mg PO DAILYPRN PRN PRN Reason: Heartburn or Indigestion Last Admin: 03/04/19 04:05 Dose: 1,000 mg Carvedilol (Coreg) 3.125 mg PO BID [facility] Last Admin: 03/04/19 08:12 Dose: 3.125 mg Clonidine (Catapres) 0.1 mg PO Q4H PRN PRN Reason: SBP >160 ____ Cyanocobalamin (Vitamin B-12) 1,000 mcg PO DAILY [facility] Last Admin: 03/04/19 08:11 Dose: 1,000 mcg Etravirine (Intelence) 200 mg PO BID[facility] Last Admin: 03/04/19 08:11 Dose: 200 mg Fluticasone Propionate (Flonase Nasal [place]) 0 gm NASAL DAILY [facility] Last Admin: 03/04/19 08:12 Dose: 2 spr Folic Acid (Folvite) 1 mg PO DAILY [facility] Last Admin: 03/04/19 08:11 Dose: 1 mg Gabapentin (Neurontin) 300 mg PO [facility] Last Admin: 03/03/19 21:00 Dose: 300 mg Guaifenesin (Robitussin Sf) 200 mg PO Q4H PRN PRN Reason: Cough Hydralazine HCl (Apresoline) 10 mg SLOW IVP Q4H PRN PRN Reason: SBP > 180 and HR < 70 Ipratropium [place] (Atrovent) 2.5 ml NEB [id number] PRN PRN Reason: SOB &/or Wheezing Loratadine (Claritin) 10 mg PO DAILYPRN PRN PRN Reason: Sinus Symptoms Nitroglycerin (Nitrostat) 0.4 mg SL Q5MIN PRN PRN Reason: Chest Pain Non-Formulary Medication (Calcium Lactate [Calcium Lactate]) 650 mg PO DAILY [facility] Nortriptyline HCl (Pamelor) 25 mg PO HS [facility] Last Admin: 03/03/19 21:01 Dose: 25 mg Ondansetron HCl (Zofran) 4 mg IVP Q6H PRN PRN Reason: Nausea/Vomiting Ondansetron HCl (Zofran Odt) 4 mg SL Q6H PRN PRN Reason: Nausea/Vomiting Last Admin: 03/03/19 18:39 Dose: 4 mg Pantoprazole Sodium (Protonix) 40 mg PO BID [facility] Last Admin: 03/04/19 08:12 Dose: 40 mg Pravastatin Sodium (Pravachol) 20 mg PO QPM [facility] Last Admin: 03/03/19 21:00 Dose: 20 mg Raltegravir (Isentress) 400 mg PO BID [facility] Last Admin: 03/04/19 08:11 Dose: 400 mg Sodium Chloride ([place] Nasal [place] 0.65%) 0 ml EA NARE QIDPRN PRN PRN Reason: Nasal Congestion Throat Lozenges (Cepastat Lozenges) 1 deyvi PO Q2H PRN PRN Reason: Sore Throat Vancomycin HCl (First Vancomycin) 250 mg PO 0400,1000,1600,2200 [facility] Last Admin: 03/04/19 15:19 Dose: 250 mg Zidovudine (Retrovir) 100 mg PO TID [facility] Last Admin: 03/04/19 15:18 Dose: 100 mg
--- NOTE | 2019-03-04 18:43 | PRG ---
DATE OF SERVICE: 03/04/2019 SUBJECTIVE: The patient was seen and examined, having diarrhea with some abdominal discomfort noted with the following vital signs. OBJECTIVE: VITAL SIGNS: Blood pressure 150/96, afebrile, temperature 98.1, pulse 80, and O2 saturation of 94%. HEENT: Unremarkable. CARDIOVASCULAR SYSTEM: First and second heart sounds were heard. RESPIRATORY SYSTEM: Clear to auscultation. DIGESTIVE SYSTEM: A benign abdomen with positive bowel sounds. EXTREMITIES: No peripheral edema. SKIN: No new gross rash. LYMPHATICS: No peripheral lymphadenopathy. IMPRESSION: 1. End-stage renal disease, on hemodialysis. 2. Hematemesis, followed by Gastroenterology. 3. Clostridium difficile colitis. PLAN: We will continue hemodialysis per schedule. Therefore, the patient will be due for dialysis tomorrow with ultrafiltration as tolerated by hemodynamics. Rest of the management is per the primary team. Job ID: [id number]
[2019-03-04] MEDS: HYDROcodone/Acetaminophen 5/325 mg Tablet PO PRN (18:53)
[2019-03-04] MEDS: Nortriptyline HCl 25 MG CAP PO SCH (20:23)
[2019-03-04] MEDS: Gabapentin 300 MG CAP PO SCH (20:24)
[2019-03-04] MEDS: Pravastatin Sodium 40 MG TAB PO SCH (20:24)
--- NOTE | 2019-03-04 21:15 | RAD ---
PORTABLE CHEST: HISTORY: Dyspnea. COMPARISON: 02/18/2019 FINDINGS: Cardiomegaly. Mild vascular congestion. Left basilar atelectasis and/or infiltrate has a similar ap pearance to the prior exam. IMPRESSION: Evidence of mild interstitial and possibly early alveolar edema. Mediport catheter unchanged. POS: [facility]
[2019-03-04 21:30] LABS: Hemoglobin 8.1 g/dL (14.0-18.0)
[2019-03-04] MEDS ORDERED: Cefepime 1 GM in Sodium Chloride 0.9% 100 ML IVPB SCH (22:15)
[2019-03-05] MEDS: Vancomycin HCl 25 MG/ML Oral PO SCH ×4 (04:59→21:50)
[2019-03-05 05:32] LABS: #Eosinphils 0.1 thou/uL (0.0-0.7); #Lymphocytes 0.9 thou/uL (1.20-3.40); #Monocytes 0.3 thou/uL (0.11-0.59); %Basophils 0.2 % (0.0-1.0); %Eosinophils 2.5 % (0.0-10.0); %Lymphocytes 27.2 % (21.0-51.0); %Neutrophils 60.2 % (42.0-75.0); Hemoglobin 8.2 g/dL (14.0-18.0); Mean Corpuscular HGB CONC 31.9 g/dL (32.0-36.0); Mean Corpuscular Hemoglobin 35.3 pg (27.0-31.0); Platelet Count 123 thou/uL (130-400); RBC Distribution Width 14.8 % (11.5-14.5); Red Blood Cell (RBC) Count 2.33 mill/uL (4.70-6.10); White Blood Cell (WBC) Count 3.3 thou/uL (4.8-10.8)
[2019-03-05 05:53] LABS: Anion Gap 17 mmol/L (10-20); BUN (Urea Nitrogen) 50 mg/dL (8.4-25.7); Calc. Creatinine Clearance 22 mL/min (70-130); Calcium 8.1 mg/dL (7.8-10.44); Carbon Dioxide 25 mmol/L (23-31); Chloride 96 mmol/L (98-107); Estimated GFR-MDRD 15; Glucose 89 mg/dL (80-115); Sodium 133 mmol/L (136-145)
[2019-03-05] MEDS: Carvedilol 3.125 MG TAB PO SCH ×2 (07:42→20:23)
[2019-03-05] MEDS: Folic Acid 1 MG TAB PO SCH (07:43)
[2019-03-05] MEDS: Cyanocobalamin (Vitamin B-12) 1,000 MCG TAB PO SCH (07:43)
[2019-03-05] MEDS: Fluticasone Propionate Nasal Spray 16 gm Bottle NASAL SCH (07:44)
[2019-03-05] MEDS: CALCIUM LACTATE 650 MG PO SCH (09:31)
[2019-03-05] MEDS: Raltegravir Potassium 400 MG TAB PO SCH ×2 (10:47→20:23)
--- NOTE | 2019-03-05 11:54 | PRG ---
DATE OF SERVICE: 03/05/2019 SUBJECTIVE: The patient was seen and examined at dialysis with no new complaint. The diarrhea seems to be improving. OBJECTIVE: VITAL SIGNS: Noted with the following vital signs; afebrile, temperature 97.6, pulse 72, respiratory rate of 22, O2 saturation of 96% with a blood pressure of 141/83. HEENT: Unremarkable. Moist oral mucosa. No conjunctival injection or icterus. NECK: Supple. CARDIOVASCULAR SYSTEM: First and second heart sounds were heard. RESPIRATORY SYSTEM: Clear to auscultation. DIGESTIVE SYSTEM: Revealed a benign abdomen with positive bowel sounds. EXTREMITIES: No peripheral edema. SKIN: No new gross rash. LYMPHATICS: No peripheral lymphadenopathy. IMPRESSION: 1. End-stage renal disease, on hemodialysis; Monday, , and Monday schedule. Undergoing dialysis per his schedule. 2. Diarrhea, likely in the context of Clostridium difficile colitis. 3. Hematemesis, seems to have improved. PLAN: 1. The patient to continue with current regimen of hemodialysis with ultrafiltration as tolerated by hemodynamics. 2. Further management will be dependent on the primary team including the disposition planning. Condition of the patient at the time of this dictation is good. Job ID: [id number]
--- NOTE | 2019-03-05 17:32 | PDOC.HOSPP ---
- Subjective Subjective: pt up in bed no diarrhea - Objective Vital Signs & Weight: Vital Signs (12 hours) Temp Pulse Resp BP BP Pulse Ox 03/05/19 13:32 75 176/80 H 03/05/19 08:00 96 03/05/19 07:40 97.6 F 72 22 H 141/83 H 96 Weight Weight 212 lb 1.355 oz I&O: 03/04/19 03/05/19 03/06/19 06:59 06:59 06:59 Intake Total 1080 1210 Balance 1080 1210 Result Diagrams: 03/05/19 05:07 03/05/19 05:07 ROS - Review of Systems All systems: All other ROS were reviewed and found negative. Respiratory: denies: cough, dry, shortness of breath, hemoptysis, SOB with excertion, pleuritic pain, sputum, wheezing, other Cardiovascular: denies: chest pain, palpitations, orthopnea, paroxysmal noc. dyspnea, edema, light headedness, other Gastrointestinal: denies: nausea, vomitting, abdominal pain, diarrhea, constipation, melena, hematochezia, other - Medication Medications: Active Medications Generic Name Dose Route Start Last Admin Trade Name Freq PRN Reason Stop Dose Admin Hydrocodone Bitart/Acetaminophen 1 tab 03/03/19 04:33 03/04/19 18:53 [place] 5/325 PO 1 tab Q4H PRN Administration Severe Pain (5-10) Calcium Carbonate 1,000 mg 03/02/19 22:49 03/04/19 04:05 Tums PO 1,000 mg DAILYPRN PRN Administration Heartburn or Indigestion Carvedilol 3.125 mg 03/03/19 21:00 03/05/19 07:42 Coreg PO 3.125 mg BID [facility] Administration Cyanocobalamin 1,000 mcg 03/04/19 09:00 03/05/19 07:43 Vitamin B-12 PO 1,000 mcg DAILY [facility] Administration Etravirine 200 mg 03/02/19 08:00 03/05/19 10:47 Intelence PO 200 mg BID-PC [facility] Administration Fluticasone Propionate 0 gm 03/04/19 09:00 03/05/19 07:44 Flonase Nasal [place] NASAL 1 spr DAILY [facility] Administration Folic Acid 1 mg 03/03/19 09:00 03/05/19 07:43 Folvite PO 1 mg DAILY [facility] Administration Gabapentin 300 mg 03/03/19 21:00 03/04/19 20:24 Neurontin PO 300 mg HS [facility] Administration Nortriptyline HCl 25 mg 03/03/19 21:00 03/04/19 20:23 Pamelor PO 25 mg HS [facility] Administration Ondansetron HCl 4 mg 03/01/19 05:51 03/03/19 18:39 Zofran Odt SL 4 mg Q6H PRN Administration Nausea/Vomiting Pantoprazole Sodium 40 mg 03/02/19 21:00 03/05/19 07:43 Protonix PO 40 mg BID [facility] Administration Pravastatin Sodium 20 mg 03/03/19 21:00 03/04/19 20:24 Pravachol PO 20 mg QPM [facility] Administration Raltegravir 400 mg 03/01/19 21:00 03/05/19 10:47 Isentress PO 400 mg BID [facility] Administration Vancomycin HCl 250 mg 03/04/19 10:00 03/05/19 16:20 First Vancomycin PO 250 mg 0400,1000,1600,2200 [facility] Administration Zidovudine 100 mg 03/01/19 21:00 03/05/19 16:20 Retrovir PO 100 mg TID [facility] Administration - Exam Heart: RRR, no murmur Respiratory: no wheezes (left AKA, left fistula) Gastrointestinal: soft, non-tender, non-distended, normal bowel sounds Hosp A/P (1) C. difficile colitis Code(s): A04.72 - ENTEROCOLITIS D/T CLOSTRIDIUM DIFFICILE, NOT SPCF RECUR Status: Acute (2) GI bleed Code(s): K92.2 - GASTROINTESTINAL HEMORRHAGE, UNSPECIFIED Status: Acute (3) Pancytopenia Code(s): D61.818 - OTHER PANCYTOPENIA Status: Chronic (4) Gastritis Code(s): K29.70 - GASTRITIS, UNSPECIFIED, WITHOUT BLEEDING Status: Acute - Plan will continue oral vanco. if pt feels well, possible discharge in am. awaiting ID recommendation. continue ppi. hh stable.
--- NOTE | 2019-03-05 18:42 | CON ---
DATE OF CONSULTATION: 03/05/2019 REASON FOR CONSULTATION: Longstanding HIV infection, end-stage renal disease, type 2 diabetes, esophageal cancer, and diarrhea. HISTORY OF PRESENT ILLNESS: This is a 63-year-old gentleman with history of longstanding HIV infection, well controlled on antiretroviral therapy and followed at the [facility] in [place] as well as type 2 diabetes with end-stage renal disease, on hemodialysis through an AV fistula. He has been on raltegravir, etravirine, and zidovudine. The patient over the past few weeks to months has been admitted multiple times in [place]. He has been diagnosed with esophageal cancer , luckily it was early on and was treated with chemoradiation therapy and at this time, he came in because of unremitting diarrhea for the past few weeks before admission. He had some vomiting as well. There was some reported hematemesis and melena both by his observation as well as witnesses and had a history of stomach ulcer, which was cauterized at [facility] in July 2018. Initial BP 140 /[address] of abdomen and pelvis showed Inflammatory changes in the rectosigmoid area consistent with colitis. Initial findings include temperature of 99.4 and then 100.2. He did not appear in distress. Chest was clear. Heart exam, regular rate with a soft murmur at the aortic area. Abdomen, soft and nontender. The initial impression was melena, hematochezia, HIV, end-stage renal disease, COPD, hypertension, and esophageal cancer in remission reportedly. The patient had an EGD by Dr. Gerhard Brown, which showed diffuse gastritis and was given proton pump inhibitor and the biopsy was consistent with chronic inflammatory changes, glandular atypia, small foci. No Clark esophagus noted. He persisted with diarrhea and C diff test was done yesterday, which was positive and he was started on treatment yesterday with oral vancomycin. Currently, he is feeling better. He denies any headaches. No change in visual symptoms. No sore throat, odynophagia, or dysphagia. No dyspnea. No chest pain. No abdominal pain. Does not have much in terms of urine output. He is able to move extremities equally. MEDICAL HISTORY: Longstanding HIV infection, properly controlled with antiretroviral therapy. We do not have a recent CD4 and viral load. Lately, he has been off his antiretroviral therapy frequently because of hospital admissions in [place] reportedly. History of end-stage renal disease secondary to type 2 diabetes mellitus. Esophageal cancer, in remission, presumably a following treatment with radiation chemotherapy. Hypertension. Chronic obstructive pulmonary disease. Previous left BKA amputation and hemodialysis access placement with an AV fistula. FAMILY HISTORY: Noncontributory. SOCIAL HISTORY: Former smoker. Lives in [place] by himself. 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 CURRENT MEDICATION LIST: Trenary, Proventil, DuoNeb, Tessalon, Tums, Coreg, Catapres, Intelence, Flonase, Folvite, Neurontin, Robitussin, Apresoline, Atrovent, Claritin, Nitrostat, Pamelor, Zofran, Protonix, Isentress, zidovudine, and vancomycin. PHYSICAL EXAMINATION: VITAL SIGNS: T-max 100.2. He has been afebrile since. BP 170/80, pulse 72, respirations are 22, and O2 saturation 96% on 2 L. SKIN: The patient has a functioning AV fistula, left upper extremity. No Ashley catheter. HEENT: Ocular movements conjugate. Sclerae white. Pupils are equal. Oral cavity, quite a few teeth in place with some gum disease. Oropharyngeal area normal. NECK: Supple. No jugular vein distention. LUNGS: Symmetric. Clear breath sounds. No wheezing. HEART: S1 and S2 with a soft 2/6 systolic murmur to the left of the precordium. Regular rate. ABDOMEN: Soft, not distended, and not tender. Bowel sounds are not increased. No bladder distention. EXTREMITIES: He moves the remaining extremities well. Pulses are 1+ in right popliteal and dorsalis pedis. LABORATORY DATA: White cell count was 3.4 and 3.3, hemoglobin 8.2, platelets were 110 and now 123 with a normal differential. Sodium 133 and creatinine 4.84. Liver profile normal except for alkaline phosphatase 185. BNP was elevated at 3400. Albumin 3.5. The patient had an occult blood in stool, which was positive and the C diff test with antigen and toxin, which was positive both toxin and antigen. Campylobacter and Shiga toxin negative. Chest x-ray with mild interstitial early alveolar edema. ASSESSMENT: 1. End-stage renal disease secondary to type 2 diabetes. 2. Longstanding human immunodeficiency virus infection. The last CD4 in the mid 300 with adequate suppression of viral load. I do not have a recent CD4 viral load. 3. Esophageal cancer, presumably in remission after chemoradiation therapy. 4. Diarrhea for the past 2 to 3 weeks with evidence of C difficile in stool testing. 5. Hematemesis and melena secondary to diffuse gastritis. DISCUSSION: The delay in C. diff. diagnosis derived from the type of initial presentation, with gastrointestinal hemorrhage as the main initial symptom/ sign. We will re-stage his HIV infection with CD4 cell count, viral load. In the meantime, he will need treatment for Clostridium difficile with usual regimen with vancomycin and I would treat for 10 days. He is at high risk for relapse, may want to give him a tapering dose of vancomycin in that regard. The patient probably had C diff from the admission and the reason he was not initially tested is because he presented with hematemesis and melena and the focus was turned to presence of a lesion that was causing gastrointestinal bleeding, which was identified as gastritis. No evidence of another opportunistic infectious process at this time. Job ID: [id number] [facility]
[2019-03-05] MEDS: Nortriptyline HCl 25 MG CAP PO SCH (20:23)
[2019-03-05] MEDS: Gabapentin 300 MG CAP PO SCH (20:23)
[2019-03-05] MEDS: Pravastatin Sodium 40 MG TAB PO SCH (20:23)
[2019-03-06] MEDS: Vancomycin HCl 25 MG/ML Oral PO SCH ×4 (03:52→21:39)
[2019-03-06] MEDS: Raltegravir Potassium 400 MG TAB PO SCH ×2 (08:33→21:38)
[2019-03-06] MEDS: Calcium Carbonate 500 MG ChewTAB PO SCH (08:33)
[2019-03-06] MEDS: Cyanocobalamin (Vitamin B-12) 1,000 MCG TAB PO SCH (08:34)
[2019-03-06] MEDS: Carvedilol 3.125 MG TAB PO SCH ×2 (08:34→21:38)
[2019-03-06] MEDS: Folic Acid 1 MG TAB PO SCH (08:34)
[2019-03-06] MEDS: Fluticasone Propionate Nasal Spray 16 gm Bottle NASAL SCH (08:34)
[2019-03-06] MEDS: HYDROcodone/Acetaminophen 5/325 mg Tablet PO PRN ×2 (11:51→23:58)
[2019-03-06 15:10] LABS: %CD4 (Helper/Inducer) 33.4 % (30.8-58.5); Absolute CD4 301 /uL (359-1519); Lymphocytes/Gated Cell Count 0.9 x10E3/uL (0.7-3.1); Total Lymphocyte 29 % (Not Estab.); WBC Total Count 3.3 x10E3/uL (3.4-10.8)
--- NOTE | 2019-03-06 17:41 | PRG ---
DATE OF SERVICE: 03/06/2019 SUBJECTIVE: The patient was seen and noted with the following vital signs. OBJECTIVE: VITAL SIGNS: Afebrile, temperature 98.4, pulse 86, respiratory rate of 18, O2 saturation 98%, and blood pressure 154/95. HEENT: Unremarkable. CARDIOVASCULAR SYSTEM: First and second heart sounds were heard. RESPIRATORY SYSTEM: Clear to auscultation. DIGESTIVE SYSTEM: Revealed a benign abdomen. Positive bowel sounds. EXTREMITIES: No peripheral edema. SKIN: No new gross rash. LYMPHATICS: No peripheral lymphadenopathy. IMPRESSION: 1. End-stage renal disease, on hemodialysis Monday, , and Monday. 2. Clostridium difficile colitis. PLAN: 1. The patient to continue with current regimen of hemodialysis of Monday, , and Monday. 2. Further management to be dependent on the clinical course. Job ID: [id number]
[2019-03-06] MEDS: CALCIUM LACTATE 650 MG PO SCH (19:48)
[2019-03-06] MEDS: Nortriptyline HCl 25 MG CAP PO SCH (21:38)
[2019-03-06] MEDS: Pravastatin Sodium 40 MG TAB PO SCH (21:39)
[2019-03-06] MEDS: Gabapentin 300 MG CAP PO SCH (21:39)
[2019-03-07] MEDS: Vancomycin HCl 25 MG/ML Oral PO SCH ×4 (04:17→22:41)
[2019-03-07] MEDS: diphenhydrAMINE 25 MG CAP PO PRN ×4 (04:17→20:15)
[2019-03-07] MEDS: Calcium Carbonate 500 MG ChewTAB PO SCH (07:58)
[2019-03-07] MEDS: Raltegravir Potassium 400 MG TAB PO SCH ×2 (08:01→21:15)
[2019-03-07] MEDS: Cyanocobalamin (Vitamin B-12) 1,000 MCG TAB PO SCH (08:03)
[2019-03-07] MEDS: Folic Acid 1 MG TAB PO SCH (08:03)
[2019-03-07] MEDS: Carvedilol 3.125 MG TAB PO SCH ×2 (08:03→22:41)
[2019-03-07] MEDS: Fluticasone Propionate Nasal Spray 16 gm Bottle NASAL SCH (10:24)
[2019-03-07 11:11] LABS: HIV-1 Quantitative, RNA PCR <20 copies/mL (.)
--- NOTE | 2019-03-07 15:31 | PDOC.HOSPP ---
- Subjective Subjective: pt up in bed no complains - Objective Vital Signs & Weight: Vital Signs (12 hours) Temp Pulse Resp BP Pulse Ox 03/07/19 07:35 97.5 F L 74 18 128/84 94 L 03/07/19 06:00 92 L Weight Weight 212 lb 1.355 oz I&O: 03/06/19 03/07/19 03/08/19 06:59 06:59 06:59 Intake Total 600 1250 Output Total 2500 Balance -1900 1250 Result Diagrams: 03/05/19 05:07 03/05/19 05:07 ROS - Review of Systems All systems: All other ROS were reviewed and found negative. Respiratory: denies: cough, dry, shortness of breath, hemoptysis, SOB with excertion, pleuritic pain, sputum, wheezing, other Cardiovascular: denies: chest pain, palpitations, orthopnea, paroxysmal noc. dyspnea, edema, light headedness, other Gastrointestinal: denies: nausea, vomitting, abdominal pain, diarrhea, constipation, melena, hematochezia, other - Medication Medications: Active Medications Generic Name Dose Route Start Last Admin Trade Name Freq PRN Reason Stop Dose Admin Hydrocodone Bitart/Acetaminophen 1 tab 03/03/19 04:33 03/06/19 23:58 [place] 5/325 PO 1 tab Q4H PRN Administration Severe Pain (5-10) Albuterol/Ipratropium 3 ml 03/01/19 15:24 03/06/19 10:09 Duoneb NEB 3 ml [id number] PRN Administration SOB &/or Wheezing Calcium Carbonate 1,000 mg 03/02/19 22:49 03/04/19 04:05 Tums PO 1,000 mg DAILYPRN PRN Administration Heartburn or Indigestion Calcium Carbonate 1,000 mg 03/06/19 09:00 03/07/19 07:58 Tums PO 1,000 mg DAILY ESME Administration Carvedilol 3.125 mg 03/03/19 21:00 03/07/19 08:03 Coreg PO 3.125 mg BID ESME Administration Clonidine 0.1 mg 03/01/19 08:57 03/05/19 18:52 Catapres PO 0.1 mg Q4H PRN Administration SBP >160 ____ Cyanocobalamin 1,000 mcg 03/04/19 09:00 03/07/19 08:03 Vitamin B-12 PO 1,000 mcg DAILY ESME Administration Diphenhydramine HCl 25 mg 03/07/19 04:09 03/07/19 08:02 Benadryl PO 25 mg Q4H PRN Administration Itching Etravirine 200 mg 03/02/19 08:00 03/07/19 07:58 Intelence PO 200 mg BID-PC ESME Administration Fluticasone Propionate 0 gm 03/04/19 09:00 03/07/19 10:24 Flonase Nasal [place] NASAL 1 spr DAILY ESME Administration Folic Acid 1 mg 03/03/19 09:00 03/07/19 08:03 Folvite PO 1 mg DAILY [facility]ME Administration Gabapentin 300 mg 03/03/19 21:00 03/06/19 21:39 Neurontin PO 300 mg HS ESME Administration Nortriptyline HCl 25 mg 03/03/19 21:00 03/06/19 21:38 Pamelor PO 25 mg HS ESME Administration Ondansetron HCl 4 mg 03/01/19 05:51 03/03/19 18:39 Zofran Odt SL 4 mg Q6H PRN Administration Nausea/Vomiting Pantoprazole Sodium 40 mg 03/02/19 21:00 03/07/19 08:03 Protonix PO 40 mg BID ESME Administration Pravastatin Sodium 20 mg 03/03/19 21:00 03/06/19 21:39 Pravachol PO 20 mg QPM ESME Administration Raltegravir 400 mg 03/01/19 21:00 03/07/19 08:01 Isentress PO 400 mg BID ESME Administration Vancomycin HCl 250 mg 03/04/19 10:00 03/07/19 15:21 First Vancomycin PO 250 mg 0400,1000,1600,2200 [facility] Administration Zidovudine 100 mg 03/01/19 21:00 03/07/19 15:21 Retrovir PO 100 mg TID ESME Administration - Exam Heart: negative: RRR, no murmur, no gallops, no rubs, normal peripheral pulses, irregular, diminshed peripheral pulses, murmur present, II/IV, III/IV Respiratory: negative: CTAB, no wheezes, no rales, no ronchi, normal chest expansion, no tachypnea, normal percussion, rales, rhonchi, tachypneic, wheezes Gastrointestinal: negative: soft, non-tender, non-distended, normal bowel sounds , no palpable masses, no hepatomegaly, no splenomegaly, no bruit, tender to palpation, distended, diminished bowl sounds, voluntary guarding Hosp A/P (1) C. difficile colitis Code(s): A04.72 - ENTEROCOLITIS D/T CLOSTRIDIUM DIFFICILE, NOT SPCF RECUR Status: Acute (2) GI bleed Code(s): K92.2 - GASTROINTESTINAL HEMORRHAGE, UNSPECIFIED Status: Acute (3) Pancytopenia Code(s): D61.818 - OTHER PANCYTOPENIA Status: Chronic (4) Gastritis Code(s): K29.70 - GASTRITIS, UNSPECIFIED, WITHOUT BLEEDING Status: Acute - Plan will continue oral vanco. pt wants to go to inpatient rehab. his diarrhea has improved
--- NOTE | 2019-03-07 15:35 | PDOC.HOSPP ---
- Subjective Subjective: pt up in bed no complains. feels he has not slept and needs his cpap to sleep. - Objective Vital Signs & Weight: Vital Signs (12 hours) Temp Pulse Resp BP Pulse Ox 03/07/19 07:35 97.5 F L 74 18 128/84 94 L 03/07/19 06:00 92 L Weight Weight 212 lb 1.355 oz I&O: 03/06/19 03/07/19 03/08/19 06:59 06:59 06:59 Intake Total 600 1250 Output Total 2500 Balance -1900 1250 Result Diagrams: 03/05/19 05:07 03/05/19 05:07 ROS - Review of Systems All systems: All other ROS were reviewed and found negative. Respiratory: denies: cough, dry, shortness of breath, hemoptysis, SOB with excertion, pleuritic pain, sputum, wheezing, other Cardiovascular: denies: chest pain, palpitations, orthopnea, paroxysmal noc. dyspnea, edema, light headedness, other - Medication Medications: Active Medications Generic Name Dose Route Start Last Admin Trade Name Freq PRN Reason Stop Dose Admin Hydrocodone Bitart/Acetaminophen 1 tab 03/03/19 04:33 03/06/19 23:58 [place] 5/325 PO 1 tab Q4H PRN Administration Severe Pain (5-10) Albuterol/Ipratropium 3 ml 03/01/19 15:24 03/06/19 10:09 Duoneb NEB 3 ml [id number] PRN Administration SOB &/or Wheezing Calcium Carbonate 1,000 mg 03/02/19 22:49 03/04/19 04:05 Tums PO 1,000 mg DAILYPRN PRN Administration Heartburn or Indigestion Calcium Carbonate 1,000 mg 03/06/19 09:00 03/07/19 07:58 Tums PO 1,000 mg DAILY ESME Administration Carvedilol 3.125 mg 03/03/19 21:00 03/07/19 08:03 Coreg PO 3.125 mg BID ESME Administration Clonidine 0.1 mg 03/01/19 08:57 03/05/19 18:52 Catapres PO 0.1 mg Q4H PRN Administration SBP >160 ____ Cyanocobalamin 1,000 mcg 03/04/19 09:00 03/07/19 08:03 Vitamin B-12 PO 1,000 mcg DAILY ESME Administration Diphenhydramine HCl 25 mg 03/07/19 04:09 03/07/19 08:02 Benadryl PO 25 mg Q4H PRN Administration Itching Etravirine 200 mg 03/02/19 08:00 03/07/19 07:58 Intelence PO 200 mg BID-PC ESME Administration Fluticasone Propionate 0 gm 03/04/19 09:00 03/07/19 10:24 Flonase Nasal [place] NASAL 1 spr DAILY ESME Administration Folic Acid 1 mg 03/03/19 09:00 03/07/19 08:03 Folvite PO 1 mg DAILY ESME Administration Gabapentin 300 mg 03/03/19 21:00 03/06/19 21:39 Neurontin PO 300 mg HS ESME Administration Nortriptyline HCl 25 mg 03/03/19 21:00 03/06/19 21:38 Pamelor PO 25 mg HS ESME Administration Ondansetron HCl 4 mg 03/01/19 05:51 03/03/19 18:39 Zofran Odt SL 4 mg Q6H PRN Administration Nausea/Vomiting Pantoprazole Sodium 40 mg 03/02/19 21:00 03/07/19 08:03 Protonix PO 40 mg BID ESME Administration Pravastatin Sodium 20 mg 03/03/19 21:00 03/06/19 21:39 Pravachol PO 20 mg QPM ESME Administration Raltegravir 400 mg 03/01/19 21:00 03/07/19 08:01 Isentress PO 400 mg BID ESME Administration Vancomycin HCl 250 mg 03/04/19 10:00 03/07/19 15:21 First Vancomycin PO 250 mg 0400,1000,1600,2200 ESME Administration Zidovudine 100 mg 03/01/19 21:00 03/07/19 15:21 Retrovir PO 100 mg TID ESME Administration - Exam Neck: negative: supple, symmetric, no JVD, no Thyromegaly, no lymphadenopathy, no carotid bruit, JVD Heart: negative: RRR, no murmur, no gallops, no rubs, normal peripheral pulses, irregular, diminshed peripheral pulses, murmur present, II/IV, III/IV Respiratory: negative: CTAB, no wheezes, no rales, no ronchi, normal chest expansion, no tachypnea, normal percussion, rales, rhonchi, tachypneic, wheezes Hosp A/P (1) C. difficile colitis Code(s): A04.72 - ENTEROCOLITIS D/T CLOSTRIDIUM DIFFICILE, NOT SPCF RECUR Status: Acute (2) GI bleed Code(s): K92.2 - GASTROINTESTINAL HEMORRHAGE, UNSPECIFIED Status: Acute (3) Pancytopenia Code(s): D61.818 - OTHER PANCYTOPENIA Status: Chronic (4) Gastritis Code(s): K29.70 - GASTRITIS, UNSPECIFIED, WITHOUT BLEEDING Status: Acute - Plan pt has no diarrhea. He feels tired today and wants his cpap on. he does not want to go home today.
--- NOTE | 2019-03-07 17:35 | PRG ---
DATE OF SERVICE: 03/07/2019 SUBJECTIVE: Not having diarrhea any more. He is having a problem because in his house, apparently, there is a stool on the floor of his bedroom and he wants it clean before he goes back to his house. He is afraid of catching C. difficile again. He denies any headaches. No shortness of breath. OBJECTIVE: VITAL SIGNS: His temperature is normal, blood pressure 120/84, and pulse 74. GENERAL: Awake, alert, and oriented. LUNGS: Clear. HEART: S1 and S2, regular rate. ABDOMEN: Soft. Not distended or tender. No ascites. : No bladder distention. MUSCULOSKELETAL: No joint inflammatory activity. LABORATORY DATA: White cell count 3.3, hemoglobin 8.2, platelets 123 with normal differential. CD4 cell count 301 and a viral load less than 20. ASSESSMENT AND DISCUSSION: 1. End-stage renal disease secondary to type 2 diabetes, longstanding human immunodeficiency virus infection, well-controlled with effective anti-retroviral therapy with stable CD4 cell count and suppressed viral load. 2. Clostridium difficile colitis. 3. Esophageal cancer. 4. Hematemesis and melena secondary to diffuse gastritis. The patient is improving rapidly and should be able to go home soon on oral vancomycin. He is at risk for recurrence, so I would advise a slow taper after the initial 7 to 10 days of 4 times a day treatment. The slow taper would follow the usual course with first week of 3 times a day vancomycin and then 2 times a day for another week, once a day for another week, and then once every other day for the final week and then discontinue it. If there is a relapse, then he would be a candidate for stool transplant. Job ID: [id number]
[2019-03-07] MEDS: HYDROcodone/Acetaminophen 5/325 mg Tablet PO PRN (18:52)
[2019-03-07] MEDS: Calcium Carbonate 500 MG ChewTAB PO PRN (20:15)
[2019-03-07] MEDS: Nortriptyline HCl 25 MG CAP PO SCH (21:15)
[2019-03-07] MEDS: Gabapentin 300 MG CAP PO SCH (22:40)
[2019-03-07] MEDS: Pravastatin Sodium 40 MG TAB PO SCH (22:40)
--- NOTE | 2019-03-08 01:42 | PRG ---
DATE OF SERVICE: SUBJECTIVE: The patient is noted with the following vital signs at dialysis. OBJECTIVE: VITAL SIGNS: Afebrile, temperature 98.1, pulse 78, respiratory rate of 18, O2 sats are 94% with blood pressure of 128/84. HEENT: Unremarkable. CARDIOVASCULAR SYSTEM: First and second heart sounds are heard. IMPRESSION: End-stage renal disease, on hemodialysis, due for dialysis today. PLAN: 1. Continue current renal replacement therapy schedule. 2. Further management to be dependent on the clinical course. Job ID: [id number]
[2019-03-08] MEDS: HYDROcodone/Acetaminophen 5/325 mg Tablet PO PRN ×2 (02:27→21:44)
[2019-03-08] MEDS: diphenhydrAMINE 25 MG CAP PO PRN ×2 (02:28→21:43)
[2019-03-08] MEDS: Ondansetron ODT 4 MG TAB SL PRN ×2 (02:54→09:38)
[2019-03-08] MEDS: Calcium Carbonate 500 MG ChewTAB PO PRN (02:54)
[2019-03-08] MEDS: Vancomycin HCl 25 MG/ML Oral PO SCH ×2 (03:45→11:17)
--- NOTE | 2019-03-08 07:15 | PRG ---
DATE OF SERVICE: 03/08/2019 SUBJECTIVE: The patient was seen and examined, very concerned about how to take care of himself status post discharge. According to the patient, his house is messed up with fecal materials all over. OBJECTIVE: The patient noted with the following vital signs. VITAL SIGNS: Afebrile, temperature 97.5, pulse 78, respirations 16, O2 saturations 96% with blood pressure 174/105. GENERAL: The patient still complain of abdominal discomfort. HEENT: Examination unremarkable. CARDIOVASCULAR SYSTEM: First and second heart sounds were heard. RESPIRATORY SYSTEM: Clear to auscultation. DIGESTIVE SYSTEM: Revealed a benign abdomen. EXTREMITIES: No peripheral edema. SKIN EXAMINATION: No new gross rash. LYMPHATICS: No peripheral lymphadenopathy. IMPRESSION: 1. End-stage renal disease, on hemodialysis. 2. Clostridium difficile colitis. PLAN: 1. The patient to continue hemodialysis per schedule. 2. The patient does not look like will be able to take care of himself status post discharge. Therefore, the patient might benefit from placements at the time of discharge. 3. Further management to be dependent on the clinical course. Job ID: [id number]
[2019-03-08] MEDS: Calcium Carbonate 500 MG ChewTAB PO SCH (09:38)
[2019-03-08] MEDS: Folic Acid 1 MG TAB PO SCH (09:39)
[2019-03-08] MEDS: Cyanocobalamin (Vitamin B-12) 1,000 MCG TAB PO SCH (09:39)
[2019-03-08] MEDS: Raltegravir Potassium 400 MG TAB PO SCH ×2 (09:39→21:43)
[2019-03-08] MEDS: Carvedilol 3.125 MG TAB PO SCH ×2 (09:39→21:55)
[2019-03-08] MEDS: Fluticasone Propionate Nasal Spray 16 gm Bottle NASAL SCH (09:40)
[2019-03-08] MEDS ORDERED: Vancomycin HCl 25 MG/ML Oral PO SCH (10:20)
[2019-03-08 10:57] LABS: #Lymphocytes 0.8 thou/uL (1.20-3.40); #Monocytes 0.4 thou/uL (0.11-0.59); #Neutrophils 2.8 thou/uL (1.40-6.50); %Basophils 0.3 % (0.0-1.0); %Eosinophils 1.1 % (0.0-10.0); %Lymphocytes 20.4 % (21.0-51.0); %Monocytes 9.1 % (0.0-10.0); %Neutrophils 69.1 % (42.0-75.0); Hemoglobin 7.8 g/dL (14.0-18.0); Mean Corpuscular HGB CONC 33.2 g/dL (32.0-36.0); Mean Corpuscular Hemoglobin 36.3 pg (27.0-31.0); Mean Platelet Volume 7.7 fL (7.4-10.4); Platelet Count 133 thou/uL (130-400); RBC Distribution Width 15.2 % (11.5-14.5); Red Blood Cell (RBC) Count 2.15 mill/uL (4.70-6.10); White Blood Cell (WBC) Count 4.1 thou/uL (4.8-10.8)
[2019-03-08 11:17] LABS: Anion Gap 14 mmol/L (10-20); BUN (Urea Nitrogen) 40 mg/dL (8.4-25.7); Calc. Creatinine Clearance 30 mL/min (70-130); Calcium 8.5 mg/dL (7.8-10.44); Carbon Dioxide 27 mmol/L (23-31); Chloride 98 mmol/L (98-107); Estimated GFR-MDRD 22; Glucose 110 mg/dL (80-115); Potassium 4.1 mmol/L (3.5-5.1); Sodium 135 mmol/L (136-145)
[2019-03-08] MEDS: Fidaxomicin 200 MG TAB PO SCH ×2 (12:23→21:42)
--- NOTE | 2019-03-08 12:55 | PRG ---
DATE OF SERVICE: 03/08/2019 SUBJECTIVE: Mr. Villeda has not tolerated vancomycin. He is vomiting and probably that explains why he is not getting better. Still having abdominal cramps and diarrhea. OBJECTIVE: VITAL SIGNS: His is T-max 98.1. GENERAL: Awake, feeling unwell. He took his 1st dose of fidaxomicin and seems to be holding it down. LUNGS: Clear. HEART: S1 and S2, regular rate. ABDOMEN: Moderately distended. Bowel sounds are somewhat increased. Mild diffuse tenderness. LABORATORY DATA: White cell count 4.1, hemoglobin 7.8, platelets 133, 69% neutrophils, 20% lymphocytes. Sodium 135, creatinine 3.43. DIAGNOSTIC DATA: Abdomen x-ray has not yet been read. I looked at the images and there are distended loops of large bowel. ASSESSMENT AND DISCUSSION: 1. End-stage renal disease secondary to type 2 diabetes, longstanding HIV infection, well controlled with effective anti-retroviral therapy and stable CD4 cell count and suppressed viral load. 2. Clostridium difficile colitis which is not responding to treatment, probably because of the patient's inability to tolerate medication. May have an element of ileus as well. We will switch him to Dificid as well as Flagyl IV 250 mg four times daily. Repeat KUB. Job ID: [id number]
--- NOTE | 2019-03-08 14:37 | RAD ---
PORTABLE SUPINE ABDOMEN: Date: 03/08/19 INDICATION: Abdominal pain. FINDINGS: Exam is suboptimal due to body habitus and positioning. There appears to be scattered small and large bowel gas which appears nonspecific. No evidence of small bowel dilatation or obstruction on this ex am. Stomach shows gaseous distention. IMPRESSION: Suboptimal exam. Evidence of nonspecific bowel gas pattern. POS: [facility]
--- NOTE | 2019-03-08 16:06 | PDOC.HOSPP ---
- Subjective Subjective: pt up in bed complains of pain to his abdomen and his diarrhea has worsen today. - Objective Vital Signs & Weight: Vital Signs (12 hours) Temp Pulse Resp BP BP Pulse Ox 03/08/19 09:39 79 188/101 H 03/08/19 08:10 98.2 F 79 20 188/101 H 95 03/08/19 07:50 95 Weight Weight 212 lb 1.355 oz I&O: 03/07/19 03/08/19 03/09/19 06:59 06:59 06:59 Intake Total 1250 480 150 Output Total 4000 Balance 1250 -3520 150 Result Diagrams: 03/08/19 10:48 03/08/19 10:48 ROS - Review of Systems All systems: All other ROS were reviewed and found negative. ENT: denies: ear pain, ear discharge, nose pain, nose discharge, nose congestion , mouth pain, mouth swelling, throat pain, throat swelling, other Gastrointestinal: reports: abdominal pain, diarrhea - Medication Medications: Active Medications Generic Name Dose Route Start Last Admin Trade Name Freq PRN Reason Stop Dose Admin Hydrocodone Bitart/Acetaminophen 1 tab 03/03/19 04:33 03/08/19 02:27 [place] 5/325 PO 1 tab Q4H PRN Administration Severe Pain (5-10) Albuterol/Ipratropium 3 ml 03/01/19 15:24 03/06/19 10:09 Duoneb NEB 3 ml [id number] PRN Administration SOB &/or Wheezing Calcium Carbonate 1,000 mg 03/02/19 22:49 03/08/19 02:54 Tums PO 1,000 mg DAILYPRN PRN Administration Heartburn or Indigestion Calcium Carbonate 1,000 mg 03/06/19 09:00 03/08/19 09:38 Tums PO 1,000 mg DAILY ESME Administration Carvedilol 3.125 mg 03/03/19 21:00 03/08/19 09:39 Coreg PO 3.125 mg BID ESME Administration Clonidine 0.1 mg 03/01/19 08:57 03/05/19 18:52 Catapres PO 0.1 mg Q4H PRN Administration SBP >160 ____ Cyanocobalamin 1,000 mcg 03/04/19 09:00 03/08/19 09:39 Vitamin B-12 PO 1,000 mcg DAILY ESME Administration Diphenhydramine HCl 25 mg 03/07/19 04:09 03/08/19 02:28 Benadryl PO 25 mg Q4H PRN Administration Itching Fidaxomicin 200 mg 03/08/19 21:00 03/08/19 12:23 Dificid PO 200 mg BID ESME Administration Fluticasone Propionate 0 gm 03/04/19 09:00 03/08/19 09:40 Flonase Nasal [place] NASAL 2 spr DAILY ESME Administration Folic Acid 1 mg 03/03/19 09:00 03/08/19 09:39 Folvite PO 1 mg DAILY ESME Administration Gabapentin 300 mg 03/03/19 21:00 03/07/19 22:40 Neurontin PO 300 mg HS ESME Administration Hydralazine HCl 10 mg 03/01/19 08:57 03/08/19 09:39 Apresoline SLOW IVP 10 mg Q4H PRN Administration SBP > 180 and HR < 70 Nortriptyline HCl 25 mg 03/03/19 21:00 03/07/19 21:15 Pamelor PO 25 mg HS ESME Administration Ondansetron HCl 4 mg 03/01/19 05:51 03/08/19 09:38 Zofran Odt SL 4 mg Q6H PRN Administration Nausea/Vomiting Pantoprazole Sodium 40 mg 03/02/19 21:00 03/08/19 09:39 Protonix PO 40 mg BID ESME Administration Pravastatin Sodium 20 mg 03/03/19 21:00 03/07/19 22:40 Pravachol PO 20 mg QPM ESME Administration Raltegravir 400 mg 03/01/19 21:00 03/08/19 09:39 Isentress PO 400 mg BID ESME Administration Zidovudine 100 mg 03/01/19 21:00 03/08/19 14:18 Retrovir PO 100 mg TID ESME Administration - Exam Heart: negative: RRR, no murmur, no gallops, no rubs, normal peripheral pulses, irregular, diminshed peripheral pulses, murmur present, II/IV, III/IV Respiratory: negative: CTAB, no wheezes, no rales, no ronchi, normal chest expansion, no tachypnea, normal percussion, rales, rhonchi, tachypneic, wheezes Gastrointestinal: soft, normal bowel sounds, tender to palpation Hosp A/P (1) C. difficile colitis Code(s): A04.72 - ENTEROCOLITIS D/T CLOSTRIDIUM DIFFICILE, NOT SPCF RECUR Status: Acute (2) GI bleed Code(s): K92.2 - GASTROINTESTINAL HEMORRHAGE, UNSPECIFIED Status: Acute (3) Pancytopenia Code(s): D61.818 - OTHER PANCYTOPENIA Status: Chronic (4) Gastritis Code(s): K29.70 - GASTRITIS, UNSPECIFIED, WITHOUT BLEEDING Status: Acute - Plan pt is now having more diarrhea 3-4 bouts and is having worsening pain to his abdomen. spoke with ID and will change to dificid and get kub. Will add flagyl. pt to go to inpatient rehab he does not want snf.
[2019-03-08] MEDS: metroNIDAZOLE 250 MG IVPB SCH (18:17)
[2019-03-08] MEDS ORDERED: Non-Formulary Item 1 EACH (Lisinopril [Lisinopril] 40 MG) PO SCH (21:00)
[2019-03-08] MEDS: Pravastatin Sodium 40 MG TAB PO SCH (21:43)
[2019-03-08] MEDS: Nortriptyline HCl 25 MG CAP PO SCH (21:43)
[2019-03-08] MEDS: Gabapentin 300 MG CAP PO SCH (21:43)
[2019-03-08] MEDS ORDERED: Melatonin 3 MG TAB PO PRN (22:15)
[2019-03-08] MEDS ORDERED: HYDROcodone/Acetaminophen 10/325 mg Tablet PO PRN (22:16)
[2019-03-08] MEDS: Morphine 2 MG/ML SYRINGE SLOW IVP SCH (22:21)
[2019-03-09] MEDS: metroNIDAZOLE 250 MG IVPB SCH ×4 (00:06→19:03)
[2019-03-09] MEDS: Carvedilol 3.125 MG TAB PO SCH (08:58)
[2019-03-09] MEDS: Folic Acid 1 MG TAB PO SCH (08:58)
[2019-03-09] MEDS: Cyanocobalamin (Vitamin B-12) 1,000 MCG TAB PO SCH (08:58)
[2019-03-09] MEDS: Fidaxomicin 200 MG TAB PO SCH ×2 (08:59→19:53)
[2019-03-09] MEDS ORDERED: Lisinopril 20 MG TAB PO SCH (09:00)
[2019-03-09] MEDS: Raltegravir Potassium 400 MG TAB PO SCH ×2 (09:00→19:54)
[2019-03-09] MEDS: Calcium Carbonate 500 MG ChewTAB PO SCH (09:01)
[2019-03-09 11:49] LABS: #Eosinphils 0.1 thou/uL (0.0-0.7); #Lymphocytes 0.9 thou/uL (1.20-3.40); #Monocytes 0.4 thou/uL (0.11-0.59); #Neutrophils 2.5 thou/uL (1.40-6.50); %Eosinophils 2.3 % (0.0-10.0); %Lymphocytes 23.6 % (21.0-51.0); %Monocytes 10.4 % (0.0-10.0); %Neutrophils 63.7 % (42.0-75.0); Hemoglobin 7.2 g/dL (14.0-18.0); Mean Corpuscular HGB CONC 33.1 g/dL (32.0-36.0); Mean Platelet Volume 7.6 fL (7.4-10.4); Platelet Count 151 thou/uL (130-400); RBC Distribution Width 15.2 % (11.5-14.5); Red Blood Cell (RBC) Count 1.99 mill/uL (4.70-6.10); White Blood Cell (WBC) Count 3.9 thou/uL (4.8-10.8)
--- NOTE | 2019-03-09 17:28 | PDOC.HOSPP ---
- Subjective Subjective: Mr. Villeda was seen today in follow-up of C. Diff diarrhea. He does not have any new complaints. He says he only had one small losse stool today. He feels he is beginning to turn the corner. - Objective Vital Signs & Weight: Vital Signs (12 hours) Temp Pulse Resp BP Pulse Ox 03/09/19 08:00 97.8 F 67 18 156/83 H 92 L Weight Weight 212 lb 1.355 oz I&O: 03/08/19 03/09/19 03/10/19 06:59 06:59 06:59 Intake Total 480 250 Output Total 4000 Balance -3520 250 Result Diagrams: 03/09/19 11:32 03/08/19 10:48 ROS - Review of Systems All systems: All other ROS were reviewed and found negative. - Medication Medications: Active Medications Generic Name Dose Route Start Last Admin Trade Name Freq PRN Reason Stop Dose Admin Hydrocodone Bitart/Acetaminophen 1 tab 03/08/19 22:16 03/09/19 00:52 [place] 10/325 PO 1 tab Q4H PRN Administration Moderate Pain (4-6) Albuterol/Ipratropium 3 ml 03/01/19 15:24 03/06/19 10:09 Duoneb NEB 3 ml [id number] PRN Administration SOB &/or Wheezing Calcium Carbonate 1,000 mg 03/02/19 22:49 03/08/19 02:54 Tums PO 1,000 mg DAILYPRN PRN Administration Heartburn or Indigestion Calcium Carbonate 1,000 mg 03/06/19 09:00 03/09/19 09:01 Tums PO 1,000 mg DAILY ESME Administration Carvedilol 3.125 mg 03/03/19 21:00 03/09/19 08:58 Coreg PO 3.125 mg BID ESME Administration Clonidine 0.1 mg 03/01/19 08:57 03/05/19 18:52 Catapres PO 0.1 mg Q4H PRN Administration SBP >160 ____ Cyanocobalamin 1,000 mcg 03/04/19 09:00 03/09/19 08:58 Vitamin B-12 PO 1,000 mcg DAILY ESME Administration Diphenhydramine HCl 25 mg 03/07/19 04:09 03/08/19 21:43 Benadryl PO 25 mg Q4H PRN Administration Itching Etravirine 200 mg 03/08/19 21:00 03/09/19 09:00 Intelence PO 200 mg 0800,2100 ESME Administration Fidaxomicin 200 mg 03/08/19 21:00 03/09/19 08:59 Dificid PO 200 mg BID ESME Administration Fluticasone Propionate 0 gm 03/04/19 09:00 03/08/19 09:40 Flonase Nasal [place] NASAL 2 spr DAILY ESME Administration Folic Acid 1 mg 03/03/19 09:00 03/09/19 08:58 Folvite PO 1 mg DAILY ESME Administration Gabapentin 300 mg 03/03/19 21:00 03/08/19 21:43 Neurontin PO 300 mg HS ESME Administration Hydralazine HCl 10 mg 03/01/19 08:57 03/08/19 09:39 Apresoline SLOW IVP 10 mg Q4H PRN Administration SBP > 180 and HR < 70 Metronidazole 250 mg/ 50 mls @ 100 mls/hr 03/08/19 18:00 03/09/19 12:00 Miscellaneous Medication IVPB Not Given Q6HR [facility] Lisinopril 40 mg 03/09/19 09:00 03/09/19 08:58 Zestril PO 40 mg DAILY [facility] Administration Morphine Sulfate 2 mg 03/08/19 22:15 03/08/19 22:21 Morphine SLOW IVP 03/09/19 23:59 2 mg NOW ESME Administration Nortriptyline HCl 25 mg 03/03/19 21:00 03/08/19 21:43 Pamelor PO 25 mg HS [facility] Administration Ondansetron HCl 4 mg 03/01/19 05:51 03/08/19 09:38 Zofran Odt SL 4 mg Q6H PRN Administration Nausea/Vomiting Pantoprazole Sodium 40 mg 03/02/19 21:00 03/09/19 08:58 Protonix PO 40 mg BID ESME Administration Pravastatin Sodium 20 mg 03/03/19 21:00 03/08/19 21:43 Pravachol PO 20 mg QPM ESME Administration Raltegravir 400 mg 03/01/19 21:00 03/09/19 09:00 Isentress PO 400 mg BID ESME Administration Zidovudine 100 mg 03/01/19 21:00 03/09/19 09:00 Retrovir PO 100 mg TID ESME Administration - Exam Eye: PERRL, anicteric sclera ENT: normocephalic atraumatic, no oropharyngeal lesions Heart: RRR, no murmur, no gallops, no rubs, normal peripheral pulses Respiratory: CTAB, no wheezes, no rales, no ronchi, normal chest expansion Gastrointestinal: soft, non-tender, non-distended, normal bowel sounds, no palpable masses, no hepatomegaly Extremities: no cyanosis, no edema Hosp A/P (1) C. difficile colitis Code(s): A04.72 - ENTEROCOLITIS D/T CLOSTRIDIUM DIFFICILE, NOT SPCF RECUR Status: Acute (2) DM (diabetes mellitus) Code(s): E11.9 - TYPE 2 DIABETES MELLITUS WITHOUT COMPLICATIONS Status: Chronic (3) ESRD (end stage renal disease) on dialysis Code(s): N18.6 - END STAGE RENAL DISEASE; Z99.2 - DEPENDENCE ON RENAL DIALYSIS Status: Chronic (4) HIV (human immunodeficiency virus infection) Code(s): B20 - HUMAN IMMUNODEFICIENCY VIRUS [HIV] DISEASE Status: Chronic (5) HTN (hypertension) Code(s): I10 - ESSENTIAL (PRIMARY) HYPERTENSION Status: Chronic Qualifiers: Hypertension type: essential hypertension Qualified Code(s): I10 - Essential (primary) hypertension - Plan * C. Diff Colitis- improving with Dificid and Flagyl IV * HIV- stable on HAART * DM- stable * ESRD- continue Dialysis as per Nephrology * Deconditioning- continue PT/OT- and anticipate Rehab transfer
--- NOTE | 2019-03-09 18:19 | DIS ---
DATE OF ADMISSION: 03/01/2019 DATE OF DISCHARGE: 03/09/2019 PRIMARY CARE PHYSICIAN: Dr. João Crowder. DISCHARGE DISPOSITION: Inpatient rehab. DISCHARGE DIAGNOSES: 1. Upper GI bleed. 2. Acute blood loss anemia. 3. End-stage renal disease, on hemodialysis. 4. Human immunodeficiency virus. 5. Chronic obstructive pulmonary disease. 6. Hypertension. 7. Deconditioning. DISCHARGE MEDICATIONS: Include: 1. Lisinopril was changed to 40 mg daily. 2. Tessalon Perles 100 mg q.6. 3. Aspirin 325 mg daily, but this can be restarted in 1 week. 4. Zidovudine 100 mg three times a day. 5. Spiriva 18 mcg inhaled daily. 6. Raltegravir 400 mg twice daily. 7. Pravastatin 20 mg daily. 8. Pamelor 25 mg at bedtime. 9. Hydralazine 25 mg daily. 10. Gabapentin 300 mg at bedtime. 11. Folic acid 1 mg daily. 12. Flonase in each nares daily. 13. Intelence 200 mg twice a day. 14. Vitamin B12 1000 mcg p.o. daily. 15. Carvedilol 6.25 mg twice daily. 16. Calcium lactate 650 mg daily. 17. Albuterol inhaler 2 puffs q.4 hours as needed. 18. Tylenol No. 3 as needed. CODE STATUS: Full code. ALLERGIES: TO CLINDAMYCIN, PAROXETINE, AND CIPROFLOXACIN. PROCEDURES DONE DURING THE ADMISSION: The patient had a CT scan of the abdomen and pelvis, showing prominence of the rectosigmoid colon, which could be due to incomplete distention. There was scattered nonspecific ascites and mesenteric fat stranding. The patient also had an upper endoscopy, in which it revealed diffuse gastritis, which was very severe, this was located in the fundus. HOSPITAL COURSE: Mr. Villeda is a pleasant 63-year-old gentleman, who presented to the emergency room complaining of dark tarry stools. The description of which is in the history and physical by Dr. Martin. He was found to have an acute blood loss anemia. He was admitted and GI was consulted. He underwent upper endoscopy. He was found to have severe gastritis in the fundus, very hyperemic, friable mucosa. This was likely the source of the bleeding. He was placed on IV proton pump inhibitor with improvement in his symptoms. He was monitored over the course of the next few days. Also during the course of his hospital stay, he developed Clostridium difficile colitis. He was initially placed on oral vancomycin without much improvement after a few days. ID was consulted and he was eventually transitioned to Dificid and IV Flagyl. With this, he has developed some improvement and due to his severe deconditioning, he is being transferred to the inpatient rehab for further treatment of this Clostridium difficile as well as rehabilitation with regard to his physical strength. Job ID: [id number]
[2019-03-09] MEDS ORDERED: Morphine 2 MG/ML SYRINGE SLOW IVP SCH (19:31)
[2019-03-09] MEDS: Fluticasone Propionate Nasal Spray 16 gm Bottle NASAL SCH (19:36)
[2019-03-09] MEDS: Morphine 2 MG/ML SYRINGE SLOW IVP SCH (19:51)
[2019-03-09] MEDS: Pravastatin Sodium 40 MG TAB PO SCH (19:54)
[2019-03-09] MEDS: diphenhydrAMINE 25 MG CAP PO PRN (19:54)
[2019-03-09] MEDS: Gabapentin 300 MG CAP PO SCH (19:54)
[2019-03-09 20:12] VITALS: BP 142/83; TEMP 97.9
[2019-03-10 19:07] LABS: Norovirus GI Negative (Negative); Norovirus GII Negative (Negative)
== END 2019-03-09 20:25 | DRG 377 ==
LOC: ERS 02:09 → SURG A 04:14 → ONC 03-02 15:10
PROVIDERS: ADMIT Hospitalist; ATTEND Hospitalist
PROC: 0DB48ZX Excision of Esophagogastric Junction, Via Natural or Artificial Opening Endoscopic, Diagnostic (ICD-10-PCS; principal; 2019-03-02)
PROC: 0DB68ZX Excision of Stomach, Via Natural or Artificial Opening Endoscopic, Diagnostic (ICD-10-PCS; 2019-03-02)
PROC: 5A1D70Z Performance of Urinary Filtration, Intermittent, Less than 6 Hours Per Day (ICD-10-PCS; 2019-03-02)
DX: K29.01 Acute gastritis with bleeding (principal); N18.6 End stage renal disease; D61.810 Antineoplastic chemotherapy induced pancytopenia; C15.9 Malignant neoplasm of esophagus, unspecified; A04.72 Enterocolitis due to Clostridium difficile, not specified as recurrent; D62 Acute posthemorrhagic anemia; I12.0 Hypertensive chronic kidney disease with stage 5 chronic kidney disease or end stage renal disease; Z21 Asymptomatic human immunodeficiency virus [HIV] infection status; J44.9 Chronic obstructive pulmonary disease, unspecified; T45.1X5A Adverse effect of antineoplastic and immunosuppressive drugs, initial encounter; D63.1 Anemia in chronic kidney disease; E78.5 Hyperlipidemia, unspecified; Z88.1 Allergy status to other antibiotic agents; Z99.2 Dependence on renal dialysis; Z79.82 Long term (current) use of aspirin; Z79.899 Other long term (current) drug therapy
CPT/HCPCS: 36415; 71045; 74018; 74177; 80048; 80053; 82274; 83630; 83880; 85014; 85018; 85025; 85048; 85610; 86361; 87045; 87046; 87324; 87449; 87493; 87536; 87798; 87899; 88305; 88312; 88313; 90935; 93005; 94640; 96365; 96374; C9113; G0257; J0360; J0692; J1642; J1644; J2250; J2270; J2550; J2704; J3490; J7620; Q0162; Q0163; Q9966

== ENCOUNTER 2019-03-11 15:40 | Inpatient (IN) | payer MEDICARE, OTHER ==
[2019-03-11 16:38] LABS: #Eosinphils 0.1 thou/uL (0.0-0.7); #Monocytes 0.3 thou/uL (0.11-0.59); #Neutrophils 2.7 thou/uL (1.40-6.50); %Basophils 0.3 % (0.0-1.0); %Eosinophils 2.4 % (0.0-10.0); %Lymphocytes 24.2 % (21.0-51.0); %Monocytes 8.1 % (0.0-10.0); %Neutrophils 65.1 % (42.0-75.0); Hemoglobin 5.9 g/dL (14.0-18.0); Mean Corpuscular HGB CONC 32.5 g/dL (32.0-36.0); Mean Corpuscular Hemoglobin 36.4 pg (27.0-31.0); Mean Platelet Volume 7.2 fL (7.4-10.4); Platelet Count 143 thou/uL (130-400); RBC Distribution Width 15.8 % (11.5-14.5); Red Blood Cell (RBC) Count 1.61 mill/uL (4.70-6.10); White Blood Cell (WBC) Count 4.2 thou/uL (4.8-10.8)
[2019-03-11 16:42] LABS: INR-International Normal Ratio 1.1; PTT 34.4 SEC (22.9-36.1); Prothrombin Time 14.7 SEC (12.0-14.7)
[2019-03-11 16:54] LABS: ALT (SGPT) Less than 7 U/L (8-55); AST (SGOT) 12 U/L (5-34); Albumin 2.8 g/dL (3.4-4.8); Alkaline Phosphatase 110 U/L (40-150); Anion Gap 16 mmol/L (10-20); BUN (Urea Nitrogen) 74 mg/dL (8.4-25.7); Bilirubin, Total 0.6 mg/dL (0.2-1.2); Calc. Creatinine Clearance 0 mL/min (70-130); Calcium 8.1 mg/dL (7.8-10.44); Carbon Dioxide 26 mmol/L (23-31); Chloride 98 mmol/L (98-107); Estimated GFR-MDRD 15; Glucose 91 mg/dL (80-115); Iron 75 ug/dL (65-175); Iron Binding Capacity, Total 146 mcg/dL (261-462); Potassium 5.5 mmol/L (3.5-5.1); Protein, Total 5.8 g/dL (5.8-8.1); Sodium 134 mmol/L (136-145)
[2019-03-11] MEDS ORDERED: Morphine 4 MG/ML VIAL ONE (17:05)
[2019-03-11] MEDS ORDERED: Acetaminophen 325 MG TAB PO PRN (20:25)
[2019-03-11] MEDS ORDERED: Ondansetron ODT 4 MG TAB SL PRN (20:25)
[2019-03-11] MEDS: Ondansetron PF 4 MG/2 ML Vial IVP PRN (21:26)
[2019-03-11 21:39] VITALS: BMI 24.9
[2019-03-11] MEDS ORDERED: Pantoprazole 40 MG VIAL IVP SCH (22:15)
--- NOTE | 2019-03-11 22:47 | RAD ---
Left lateral decubitus and supine imaging abdomen and pelvis: 03/11/2019 COMPARISON: None HISTORY: Constipation FINDINGS: Clips in the right upper quadrant suggest prior cholecystectomy. There is mild gaseous dist ention of large and small bowel within the abdomen/pelvis. There is also mild gaseous distention of the stomach with an air-fluid level noted on the decubitus view. Decubitus imaging demonstrates no fr ee intraperitoneal air. IMPRESSION: Mild diffuse gaseous distention of bowel with no evidence for free intraperitoneal air.
--- NOTE | 2019-03-12 00:46 | HP ---
PRIMARY CARE PHYSICIAN: Dr. João Crowder. CHIEF COMPLAINT: Low hemoglobin and abnormal vital signs. HISTORY OF PRESENT ILLNESS: Mr. Villeda is a 63-year-old male with multiple medical problems, was recently discharged from this facility to the inpatient rehab for an upper GI bleed and acute blood loss anemia. He also has a history of end-stage renal disease, on hemodialysis; HIV; chronic obstructive pulmonary disease; hypertension; deconditioning. He was admitted here on 03/01/2019 and discharged on 03/11/2019. He was initially admitted on the for dark tarry stools. GI was consulted during last admission and they did an EGD, found severe gastritis in the fundus, very hyperemic and had friable mucosa. This was the likely source of the bleeding. He was placed on IV proton pump inhibitors with improvement of his symptoms. During the course of his last hospital stay, he also developed C diff colitis. Reports that he had profuse diarrhea, was placed eventually on Dificid and IV Flagyl. Symptoms improved and he was eventually sent over to the rehab to continue gaining some of his physical strength back. He denies any current diarrhea. Reports that he has not had a bowel movement in at least the last 24 hours. Reports that prior to discharge, his diarrhea had slowed down significantly and then as of Monday has stopped. He does report a history during this last hospitalization of nausea, vomiting, and diarrhea. Reports to me on this evaluation for today's admission that he has not had any nausea, vomiting, diarrhea, any abdominal pain since he was discharged. It was noted at the rehab that his initial hemoglobin on 03/10 was 6.8; when it was checked this morning around noon, it was 4.8; when he was seen in the emergency room, it was 5.9. The emergency room physician, Dr. Hankins did order a stat type and cross match with 2 units and was going to start the first unit in the ER. Dr. Barrera follows the patient for dialysis and the patient does report that he gets dialysis Tuesdays, , and Saturdays. Dr. Barrera was consulted by agreed with 1 unit of packed red blood cells today and that he would order dialysis in the morning. ALLERGIES: CLINDAMYCIN, PAROXETINE, AND CIPROFLOXACIN. HOME MEDICATIONS: Per the nursing unit, 1. Tylenol No. 3 one tab p.o. q.6 hours as needed. 2. Albuterol inhaler 2 puffs q.4 hours as needed. 3. Calcium lactate 650 mg p.o. daily. 4. Coreg 3.125 tab p.o. b.i.d. 5. Vitamin B12 1000 mcg p.o. daily. 6. Intelence 200 mg p.o. b.i.d. 7. Flonase 2 sprays each naris daily. 8. Folic acid 1 mg p.o. daily. 9. Gabapentin 300 mg p.o. at bedtime. 10. Apresoline 25 mg p.o. daily. 11. Pamelor 25 mg p.o. at bedtime. 12. Pravastatin 40mg po hs 13. Spiriva 18 mcg inhaler b.i.d. 14. Raltegravir potassium 400 mg p.o. b.i.d. 15. Zidovudine 100 mg p.o. t.i.d. 16. Aspirin 325 mg p.o. daily. 17. Lisinopril 40 mg p.o. daily. PAST MEDICAL HISTORY: 1. End-stage renal disease, on hemodialysis 3 times a week. 2. Chronic obstructive pulmonary disease. 3. Diabetes myelitis. 4. Hypertension. 5. HIV. 6. Hyperlipidemia. 7. History of esophageal cancer, treated with chemotherapy and radiation. 8. Thyroid cyst. PAST SURGICAL HISTORY: 1. Hemorrhoidectomy. 2. Amputation of the left lower extremity, [id number]. 3. Status post total left knee replacement. 4. Hernia repair x3. 5. Tonsillectomy. 6. Left elbow surgery. 7. Left arm dialysis shunt placement. SOCIAL HISTORY: He reports he drinks alcohol sporadically. He was a former drug user, has not used it a very long time. He does not smoke. He is a former tobacco smoker. REVIEW OF SYSTEMS: The patient is chronically short winded. He reports he is currently on 3 L of O2, which he states is baseline for him. Denies any abdominal pain. Denies any nausea or vomiting. Denies any diarrhea in at least 24 to 48 hours. Denies any fever or chills. Does not make any urine. All other systems are reviewed and are negative unless mentioned in the HPI. PHYSICAL EXAMINATION: VITAL SIGNS: Temperature is 97.8, pulse is 77, respiratory rate is 18, pO2 sats are 98% on 3 L of nasal cannula, and blood pressure 155/92. CONSTITUTIONAL: The patient appears in no distress, is alert and oriented to person, place, and time. Answers questions appropriately. HEENT: Head is atraumatic and normocephalic. Eyes; eyelids are normal to inspection. Pupils equally round and reactive to light. ENT, mucous membranes are moist. Mouth exam is normal. NECK: Normal range of motion. Trachea is midline. RESPIRATORY/CHEST: Breath sounds are clear. CARDIOVASCULAR: Heart sounds are normal. Regular heart rate and rhythm. ABDOMEN: Bowel sounds are heard. Some mild distention is present. RECTAL: Rectal in the ER showed findings of dark stool. This was not repeated. Guaiac was found to be negative of occult blood. BACK: Normal inspection. No tenderness. EXTREMITIES: Upper extremity, radial pulses normal, normal inspection, normal range of motion. There is shunt placement in left arm, thrill is present. Lower extremity, motor strength is normal. Left AKA. Pedal pulse on the right is normal. NEUROLOGIC: The patient is oriented to person, place, and time. Speech is normal. SKIN: Warm and dry. Normal in color. LABORATORY DATA: White blood cell count is 4.2, hemoglobin is 5.9, hematocrit is 18, and platelet count is 143. PT 14.4, INR 1.1, and aPTT 34.4. Sodium is 134, potassium is 5.5, BUN is 74, and creatinine is 4.78. TIBC 146. Ferritin is 911.58. PLAN/ASSESSMENT: 1. Symptomatic anemia. Hemoglobin is 5.9. The patient typed and crossmatched 2 units. Discussion with the ER to start infusion of [address] Barrera was contacted and stated that this would be appropriate and that he would give him dialysis tomorrow. Guaiac was initially negative in the ER. Based on the recent admission for an upper GI bleed, this may certainly be the cause of the ongoing anemia. We will check an H and H once the first unit of PRBCs have been infused. Protonix was started tonight. We will continue daily. This can be adjusted per renal dosing as needed. 2. End-stage renal disease and hyperkalemia. Potassium is 5.5. The patient has scheduled dialysis tomorrow. Dr. Barrera is aware the patient is admitted and will need dialysis tomorrow. 3. Recent history of Clostridium difficile colitis. The patient denies any diarrhea. We may have to repeat an occult stool. It is unclear whether medication for the C diff was continued while the patient at the rehab. We will continue to monitor. 4. History of human immunodeficiency virus. We will continue home medications. 5. History of hyperlipidemia. We will continue home medications. 6. History of hypertension. We will trend. Restart home medications. 7. Hospital course is dependent on clinical findings. Job ID: [id number] MTDD
[2019-03-12] MEDS: Ipratropium Bromide 2.5 ml Neb NEB SCH ×4 (01:46→22:19)
[2019-03-12] MEDS: Ondansetron PF 4 MG/2 ML Vial IVP PRN (04:51)
[2019-03-12 06:17] LABS: #Eosinphils 0.1 thou/uL (0.0-0.7); #Monocytes 0.4 thou/uL (0.11-0.59); #Neutrophils 3.4 thou/uL (1.40-6.50); %Eosinophils 2.4 % (0.0-10.0); %Lymphocytes 20.1 % (21.0-51.0); %Monocytes 7.9 % (0.0-10.0); %Neutrophils 69.5 % (42.0-75.0); Hemoglobin 6.8 g/dL (14.0-18.0); Mean Corpuscular HGB CONC 33.1 g/dL (32.0-36.0); Mean Corpuscular Hemoglobin 35.9 pg (27.0-31.0); Mean Platelet Volume 7.5 fL (7.4-10.4); Platelet Count 164 thou/uL (130-400); RBC Distribution Width 17.7 % (11.5-14.5); Red Blood Cell (RBC) Count 1.89 mill/uL (4.70-6.10); White Blood Cell (WBC) Count 4.9 thou/uL (4.8-10.8)
[2019-03-12 06:47] LABS: ALT (SGPT) Less than 7 U/L (8-55); AST (SGOT) 14 U/L (5-34); Alkaline Phosphatase 108 U/L (40-150); Anion Gap 18 mmol/L (10-20); BUN (Urea Nitrogen) 80 mg/dL (8.4-25.7); Bilirubin, Total 0.8 mg/dL (0.2-1.2); Calc. Creatinine Clearance 18 mL/min (70-130); Calcium 8.6 mg/dL (7.8-10.44); Carbon Dioxide 24 mmol/L (23-31); Chloride 96 mmol/L (98-107); Estimated GFR-MDRD 13; Globulin 3.3 g/dL (2.4-3.5); Glucose 79 mg/dL (80-115); Potassium 5.6 mmol/L (3.5-5.1); Protein, Total 6.3 g/dL (5.8-8.1); Sodium 132 mmol/L (136-145)
[2019-03-12] MEDS ORDERED: Pantoprazole 40 MG VIAL IVP SCH (09:00)
--- NOTE | 2019-03-12 09:15 | RAD ---
PORTABLE CHEST 1 VIEW: Date: 03/12/19 Time: 0855 hours HISTORY: Shortness of breath. FINDINGS/IMPRESSION: Comparison made with exam of 03/04/19. Right side Port-A-Cath remains in place. The heart is enlarged. There are bibasilar infiltrates/atele ctatic changes. No pneumothoraces are seen. POS: OFF
[2019-03-12 09:43] LABS: Hemoglobin 6.6 g/dL (14.0-18.0)
--- NOTE | 2019-03-12 11:10 | PRG ---
DATE OF SERVICE: 03/11/2019 SUBJECTIVE: The patient was seen and examined. with hemoglobin of 5.9 noted with the following vital signs. OBJECTIVE: VITAL SIGNS: Afebrile. , respiratory rate of 18, O2 saturations HEENT: Unremarkable. CARDIOVASCULAR: First and second heart sounds were heard. RESPIRATORY: Clear to auscultation. DIGESTIVE: Revealed a benign abdomen with positive bowel sounds. EXTREMITIES: No peripheral edema. NEUROLOGIC: Alert and oriented. No lateralizing sign. LYMPHATICS: No peripheral lymphadenopathy. IMPRESSION: 1. Severe anemia . 2. History of esophageal cancer, status post radiation and chemotherapy. 3. . PLAN: The patient is to be transfused on the floor and then the during dialysis tomorrow. Job ID: [id number]
[2019-03-12] MEDS: Cyanocobalamin (Vitamin B-12) 1,000 MCG TAB PO SCH (11:24)
[2019-03-12] MEDS: Carvedilol 3.125 MG TAB PO SCH ×2 (11:24→20:22)
[2019-03-12] MEDS: Folic Acid 1 MG TAB PO SCH (11:25)
[2019-03-12] MEDS: Raltegravir Potassium 400 MG TAB PO SCH ×2 (11:25→20:23)
[2019-03-12] MEDS: hydrALAZINE 25 MG TAB PO SCH (11:25)
[2019-03-12] MEDS: Fluticasone Propionate Nasal Spray 16 gm Bottle NASAL SCH (11:25)
[2019-03-12] MEDS: EPOETIN ALFA-EPBX (ESRD) 4,000 UNIT/ML VIAL IVP SCH (11:26)
--- NOTE | 2019-03-12 11:33 | CT ---
CT ABDOMEN AND PELVIS WITHOUT CONTRAST: HISTORY: Nausea, vomiting, and abdominal pain. COMPARISON: Prior CT abdomen/pelvis exams dating back to 2007. FINDINGS: Bibasilar parenchymal densities are present. There is enlargement of the cardiac silhouette. Liver: There is intrinsic density of the hepatic parenchyma, nonspecific. Small, subcentimeter hypo density at the central aspect the liver, involving left hepatic lobe, is too small to definitively characterize, although stable, likely a cyst. Gallbladder: Surgically absent. Pancreas: Unremarkable. Spleen: Unremarkable. Adrenal glands: Unremarkable. Kidneys: There is marked renal atrophy bilaterally with numerous bilateral renal parenchymal hypoden sities, indicative of several cysts, incompletely assessed by noncontrast imaging. There is also parenchymal calcification involving each kidney. Presumed hyperdense renal cysts are also seen bilat erally. Bowel: Marked distention of the stomach and duodenum, to the level of the 4th portion of the duodenu m, is demonstrated, which has progressed from prior. There is stable swirling of the central abdominal mesentery, dating back to the 2007 exam. Abnormal dilatation of the small bowel measures a pproximately 7 cm in diameter. No associated pneumoperitoneum or portal vein gas. There are locules of peripherally oriented air within the fluid filled, distended small bowel, although these d id not demonstrate the appearance of intramural air, but rather abut the bowel wall. Urinary Bladder: Decompressed, limiting assessment. Adenopathy: Limited evaluation of the lymph nodes by noncontrast technique. There are a few scatter ed borderline-sized abdominal lymph nodes. Ascites: No ascites. Osseous structures: No acute osseous abnormalities. IMPRESSION: Interval development of marked distention of the stomach and duodenum, demonstrating marked progressi on from prior exam. This indicates mechanical obstruction, related to mid gut volvulus. Recommend surgical consultation. Ordering physician, Dr Montoya, was notified via telephone at 1120 hours. CODE CR Transcribed Date/Time: 03/12/2019 11:47 AM
[2019-03-12] MEDS ORDERED: Chloraseptic Spray 180 ml Bottle PO PRN (12:23)
[2019-03-12] MEDS ORDERED: Lidocaine Viscous Sol 2% 15 ml UD Cup SSW SCH (12:30)
--- NOTE | 2019-03-12 15:03 | PRG ---
DATE OF SERVICE: 03/12/2019 SUBJECTIVE: The patient was seen and examined with no new complaint. OBJECTIVE: VITAL SIGNS: The patient was noted with the following vital signs; afebrile, temperature 98.4, respiratory rate of 20, pulse 70, O2 saturation 96%, and blood pressure 156/84. HEENT: Unremarkable. CARDIOVASCULAR: First and second sounds were heard. RESPIRATORY: Clear to auscultation. DIGESTIVE: Revealed a benign abdomen. EXTREMITIES: No peripheral edema. SKIN: No new gross rash. LYMPHATICS: No peripheral lymphadenopathy. LABORATORY INVESTIGATION: Showed a hemoglobin of 6.6. Chemistry; potassium 5.6, BUN of 80 with a creatinine of 5.37. IMPRESSION: 1. End-stage renal disease, on hemodialysis. 2. Severe anemia in the context of gastrointestinal issues. 3. Status post 4 L removal via the NG tube. PLAN: 1. The patient to be dialyzed today in accordance with the schedule with no to minimal ultrafiltration. 2. The patient to be transfused during dialysis today. 3. Further management to be dependent on the clinical course. Job ID: [id number]
--- NOTE | 2019-03-12 15:07 | PDOC.HOSPP ---
- Subjective Subjective: pt up in bed complains of nausea/vomiting and some abd pain - Objective Vital Signs & Weight: Vital Signs (12 hours) Temp Pulse Pulse Resp BP BP Pulse Ox 03/12/19 14:14 98.4 F 82 20 156/84 H 96 03/12/19 13:57 70 16 03/12/19 11:25 81 03/12/19 11:22 98.6 F 78 20 148/80 H 94 L 03/12/19 11:14 98.8 F 81 20 150/84 H 95 03/12/19 07:56 95 03/12/19 07:42 98.8 F 81 16 99/62 81 L 03/12/19 07:05 90 18 03/12/19 04:47 98.4 F 79 16 150/87 H 97 Weight Weight 193 lb 14.4 oz I&O: 03/11/19 03/12/19 03/13/19 06:59 06:59 06:59 Intake Total 350 0 Output Total 4000 Balance 350 -4000 Result Diagrams: 03/12/19 09:31 03/12/19 05:49 ROS - Review of Systems All systems: All other ROS were reviewed and found negative. Gastrointestinal: reports: nausea, vomitting, abdominal pain - Medication Medications: Active Medications Generic Name Dose Route Start Last Admin Trade Name Clarisse PRN Reason Stop Dose Admin Carvedilol 3.125 mg 03/12/19 09:00 03/12/19 11:24 Coreg PO Not Given BID [facility] Cyanocobalamin 1,000 mcg 03/12/19 09:00 03/12/19 11:24 Vitamin B-12 PO Not Given DAILY [facility] Epoetin Elder-epbx 7,500 unit 03/12/19 09:00 03/12/19 11:26 Retacrit IVP Not Given TuThSa [facility] Etravirine 200 mg 03/12/19 08:00 03/12/19 11:24 Intelence PO Not Given BID-PC [facility] Fluticasone Propionate 0 gm 03/12/19 09:00 03/12/19 11:25 Flonase Nasal [place] NASAL Not Given DAILY [facility] Folic Acid 1 mg 03/12/19 09:00 03/12/19 11:25 Folvite PO Not Given DAILY [facility] Hydralazine HCl 25 mg 03/12/19 09:00 03/12/19 11:25 Apresoline PO Not Given DAILY [facility] Ipratropium Mineral 2.5 ml 03/12/19 01:00 03/12/19 13:57 Atrovent NEB 2.5 ml [id number] ESME Administration Pantoprazole Sodium 40 mg 03/12/19 09:00 03/12/19 11:25 Protonix IVP Not Given DAILY [facility] Raltegravir 400 mg 03/12/19 09:00 03/12/19 11:25 Isentress PO Not Given BID [facility] Sodium Chloride 10 ml 03/11/19 21:00 03/12/19 11:26 Flush - Normal Saline IVF Not Given Q12HR ESME Zidovudine 100 mg 03/12/19 09:00 03/12/19 11:26 Retrovir PO Not Given TID ESME - Exam Heart: negative: RRR, no murmur, no gallops, no rubs, normal peripheral pulses, irregular, diminshed peripheral pulses, murmur present, II/IV, III/IV Respiratory: negative: CTAB, no wheezes, no rales, no ronchi, normal chest expansion, no tachypnea, normal percussion, rales, rhonchi, tachypneic, wheezes Gastrointestinal: soft, normal bowel sounds (mild pain on palpation of abdomen) Hosp A/P (1) SBO (small bowel obstruction) Code(s): K56.609 - UNSP INTESTNL OBST, UNSP TO PARTIAL VERSUS COMPLETE OBST Status: Acute (2) C. difficile colitis Code(s): A04.72 - ENTEROCOLITIS D/T CLOSTRIDIUM DIFFICILE, NOT SPCF RECUR Status: Acute (3) GI bleed Code(s): K92.2 - GASTROINTESTINAL HEMORRHAGE, UNSPECIFIED Status: Acute (4) DM (diabetes mellitus) Code(s): E11.9 - TYPE 2 DIABETES MELLITUS WITHOUT COMPLICATIONS Status: Chronic (5) ESRD (end stage renal disease) on dialysis Code(s): N18.6 - END STAGE RENAL DISEASE; Z99.2 - DEPENDENCE ON RENAL DIALYSIS Status: Chronic - Plan pt was very nauseated and has being having emesis. Ct ordered which indicated sbo. surgery called will insert a NG tube. Pt also received an additional unit of blood. spoke with nephrology about low hh and high output after ng tube insertion. will give an additional 2 untis.
--- NOTE | 2019-03-12 15:23 | CON ---
DATE OF CONSULTATION: 03/12/2019 REQUESTING PHYSICIAN: Dr. Mnotoya. HISTORY OF PRESENT ILLNESS: This is a 63-year-old man with multiple comorbidities. The patient was recently transferred to rehabilitation following a 10-day hospitalization for upper gastrointestinal hemorrhage, and clots from difficile colitis. Although, his diarrhea has resolved. The patient presented this morning with abdominal distention, multiple episodes of coffee-grounds emesis. He denies any bright red blood per rectum. Last bowel movement was 24 hours ago. He denies any fevers or chills. PAST MEDICAL HISTORY: Medical history is significant for recent upper gastrointestinal hemorrhage, which is found by endoscopy to be from erosive gastritis. Other past medical history includes end-stage chronic kidney disease hemodialysis dependent, COPD, HIV, essential hypertension, diabetes mellitus, hyperlipidemia, esophageal carcinoma status post chemoradiation therapy. PAST SURGICAL HISTORY: Significant for recent upper endoscopy less than 2 weeks ago, left above-the knee amputation, previous left total knee arthroplasty prior to the [id number] amputation, hemorrhoidectomy, herniorrhaphies x3, childhood tonsillectomy and adenoidectomy, left arm dialysis vascular shunt. SOCIAL HISTORY: The patient is a former IV drug user, has not indulged in the recent times. He admits to occasional intake of ethanol in moderate amounts. He has over 30 pack-year cigarette smoking history, but does not smoke currently. FAMILY HISTORY: Noncontributory for this patient's age. PREHOSPITALIZATION MEDICATIONS: Include: 1. Tylenol with Codeine 300 mg/60 mg p.o. q.6 hours p.r.n. 2. Albuterol inhalation therapy p.r.n. 3. Aspirin 325 mg p.o. daily. 4. Lisinopril 40 mg p.o. daily. 5. Carvedilol 3.125 mg p.o. b.i.d. 6. Vitamin B12 of 1000 mcg p.o. daily. 7. Etravirine 200 mg p.o. b.i.d. 8. Folic acid 1 mg p.o. daily. 9. Gabapentin 300 mg p.o. at bedtime. 10. Nortriptyline 25 mg p.o. at bedtime. 11. Hydralazine 25 mg p.o. daily. 12. Pravastatin 20 mg p.o. at bedtime. 13. Isentress 400 mg p.o. b.i.d. 14. Spiriva 18 mcg inhalation b.i.d. 15. Zidovudine 100 mg p.o. t.i.d. ALLERGIES: CLINDAMYCIN, PAROXETINE, AND CIPROFLOXACIN. REVIEW OF SYSTEMS: Ten-point review of systems essentially unremarkable except as stated in past medical history and chief complaint. PHYSICAL EXAMINATION: GENERAL: This reveals a 63-year-old normally developed man, who is otherwise coherent and interactive, appears stated age. The patient is alert and oriented x3, appears to be in no significant acute distress at the time of my evaluation. VITAL SIGNS: Today reveal blood pressure 148/80, pulse is 81, respiratory rate is 20, temperature 98.6 degrees Fahrenheit, and oxygen saturation is 94% on 2 L by nasal cannula oxygen. HEENT: Pupils equal, round, reactive to light and accommodation. HEART: Reveals regular rate and rhythm. No murmurs or gallops auscultated. LUNGS: Clear to auscultation bilaterally. Breathing, regular and nonlabored. ABDOMEN: Soft and distended, but mildly tender to palpation with no gross rebound tenderness present. Liver and spleen nonpalpable below costal margin. NEUROLOGIC: Reveals no focal deficits present. LABORATORY FINDINGS: Today include a CBC with 4900 white blood cells, hemoglobin and hematocrit of 6.8 and 20.6 respectively. Platelet count 164,000. Metabolic profile; sodium 132, potassium 5.6, chloride is 96, bicarb 24, BUN 80, creatinine is 5.37, glucose is 79. AST and ALT are 14 and less than 7 respectively. I have personally reviewed the CT scan of the abdomen and pelvis, which is remarkable for markedly distended stomach and proximal small bowel serving up to the fourth portion of the duodenum. There is no pneumoperitoneum, pneumatosis intestinalis, or any significant free abdominal fluid present. IMPRESSION: 1. Gastric outlet obstruction, likely secondary to radiation induced adhesions versus gastroparesis. 2. History of human immunodeficiency virus. 3. History of prior gastrointestinal hemorrhage, prior duodenal ulcer with resultant stenosis is also possible. 4. History of chronic obstructive pulmonary disease. 5. History of end-stage chronic kidney disease. RECOMMENDATIONS: 1. Nasogastric tube decompression. 2. I personally placed a 16-Faroese nasogastric tube and immediately evacuated 3.8 L of coffee-ground effluent with immediate improvement of the patient's symptoms. 3. We will consider upper GI studies with small-bowel follow-through tomorrow to rule out mechanical small-bowel obstruction. 4. Continue with bowel rest and judicious intravenous fluids. 5. There is no acute surgical indication for this patient at this time. 6. We will review the upper GI with small-bowel follow-through tomorrow and make further recommendations as necessary. Above findings and recommendations have been discussed with the patient in the presence of his nurse at bedside. The patient indicates understanding of information given. I have answered his questions. Thank you again, Dr. Montoya for allowing me the opportunity to participate in the care of this patient. Job ID: [id number]
[2019-03-12] MEDS: Gabapentin 300 MG CAP PO SCH (20:23)
[2019-03-12] MEDS: Simvastatin 5 MG TAB PO SCH (20:23)
[2019-03-12] MEDS: Nortriptyline HCl 25 MG CAP PO SCH (20:23)
[2019-03-12] MEDS ORDERED: Epoetin (ESRD) 20,000 UNITS/ML IVP SCH (20:24)
[2019-03-12] MEDS: Pantoprazole 40 MG VIAL IVP SCH (21:07)
[2019-03-12] MEDS ORDERED: Lorazepam 2 MG/ML VIAL SLOW IVP PRN (21:28)
--- NOTE | 2019-03-12 23:19 | PRG ---
DATE OF SERVICE: 03/12/2019 SUBJECTIVE: The patient is awake, alert, sitting up in the hospital bed with NG tube in place. The patient denies any abdominal pain at this time. The patient continues to have dark brown output from NG tube. The patient reports that he is craving potato chips and something to drink. The patient remains n.p.o. at this time. OBJECTIVE: VITAL SIGNS: Stable, afebrile. GENERAL: The patient is awake, in no distress, appears stated age, alert and oriented x3. ABDOMEN: Soft and nondistended. IMPRESSION: 1. Gastric outlet obstruction, likely secondary to radiation induced adhesions versus gastroparesis. 2. History of human immuno deficiency virus. 3. History of prior gastrointestinal hemorrhage. 4. History of chronic obstructive pulmonary disease. 5. History of end-stage chronic kidney disease. PLAN: Continue nasogastric tube and bowel rest. The patient will get a small bowel follow-through in the morning to rule out mechanical small-bowel obstruction. We will continue IV fluids. Job ID: [id number] [facility]
--- NOTE | 2019-03-13 01:40 | CON ---
DATE OF CONSULTATION: 03/12/2019 CHIEF COMPLAINT: Nausea, vomiting and severe anemia. HISTORY OF PRESENT ILLNESS: Mr. Villeda is a 63-year-old man who was admitted with severe anemia, nausea and vomiting. He has a history of esophageal cancer, which was treated with radiation and chemotherapy within the last few months at [facility]. He is noted to have severe anemia in previous hospitalization for which I performed upper endoscopy on 03/02/2019. This showed edematous friable mucosa in the stomach, which was likely bleeding source for his coffee-grounds emesis at that time. He had no significant ulcers or visible vessels. With this hospitalization, he was found to have severe anemia with a hemoglobin as low as 4.8 yesterday. He underwent dialysis today and received 2 units with dialysis plus another 2 units earlier today. He had a CT scan of the abdomen and pelvis performed this morning, which showed a markedly distended and dilated stomach with distention of the duodenum as well to the level of the 4th portion of the duodenum and then evidence of obstruction at that point, which by CT there was a question of midgut volvulus with chronic swelling of the mesentery. The swelling in the mesentery, however, has been stable for many years. General surgery was consulted and Dr. Alexis saw, Mr. Villeda and placed an NG tube with immediate return of 3.8 L of fluid from the stomach. He now has some coffee-ground and red bloody tint to the NG aspirate. He feels much better after having had the NG tube placed. When I performed his EGD, he did not have this large volume of fluid in the stomach. Currently he has no abdominal pain. He was having intractable nausea and vomiting prior to placement of the NG tube. Any time, he would try to eat, he would just vomit the food back up. He has had no diarrhea or constipation ongoing now. No blood in the stool. No fever. No chest pain or shortness of breath. PAST MEDICAL HISTORY: End-stage renal disease, on hemodialysis, diabetes mellitus, HIV, recent C. diff colitis with a previous hospitalization. He was treated with Dificid and metronidazole. Prior to the readmission, now his diarrhea stopped over the last couple days. Also past medical history of hypertension, hyperlipidemia, COPD, esophageal cancer. PAST SURGICAL HISTORY: 1. Left rhjmg-dfb-tyre amputation. 2. Prior knee replacement. 3. Hernia repair. 4. Tonsillectomy. 5. Elbow surgery. 6. Dialysis shunt. 7. Hemorrhoidectomy. 8. Endoscopy. FAMILY HISTORY: Negative for GI malignancies. SOCIAL HISTORY: No alcohol, tobacco, or drugs. ALLERGIES: CIPROFLOXACIN, CLINDAMYCIN, PAXIL. MEDICATIONS: 1. Carvedilol. 2. Vitamin B 12. 3. Epoetin. 4. Etravirine. 5. Folic acid. 6. Gabapentin. 7. Hydralazine. 8. Pantoprazole. 9. Raltegravir. 10. Simvastatin. 11. Zidovudine. REVIEW OF SYSTEMS: Negative x10 systems reviewed except as stated in the history of present illness. PHYSICAL EXAMINATION: VITAL SIGNS: Temperature 98.2, blood pressure 138/78, pulse 69. GENERAL: He is in no acute distress. Alert and oriented x3. HEENT: Eyes have no scleral icterus. Oropharynx is clear without lesions. He has an NG tube in place. LUNGS: Clear to auscultation bilaterally. HEART: Regular rate and rhythm without murmur. He does have a coffee ground appearing material in the NG aspiration bucket and some red tinting in the tubing. ABDOMEN: Soft, nontender, and nondistended. Bowel sounds are present. EXTREMITIES: No lower extremity edema. LABORATORY DATA: White blood cell count 4.9, hemoglobin is 6.6 after the first 2 units of transfusion; platelets 164. INR 1.1. Creatinine 5.37, BUN 80, albumin 3.0, bilirubin 0.8, AST 11, ALT 7, alkaline phosphatase 108. IMPRESSION: 1. Gastrointestinal bleed from gastritis and friable edematous mucosa noted by recent endoscopy 10 days ago. Now with presentation with marked gastric distention. He certainly could have ischemic ulcerations of the gastric mucosa that go along with the severe gastritis. He could have some radiation gastritis also. However, this is less likely. 2. Obstruction at the level of the fourth portion of the duodenum. The CT scan showed some evidence of volvulus. He has been evaluated by General Surgery and the plan is for Gastrografin upper GI with small-bowel follow-through tomorrow. The options beyond that include consideration for push enteroscopy, performing an upper endoscopy with the colonoscope to reach the fourth portion of the duodenum to rule out a mucosal cause of the obstruction. Otherwise, if the contrast flows through freely, further intervention might not be required. Also consideration for surgical etiology is being considered as well. RECOMMENDATIONS: 1. Increase the Protonix to twice daily IV. 2. Await results of the Gastrografin small-bowel follow-through tomorrow. Job ID: [id number]
[2019-03-13] MEDS: Ipratropium Bromide 2.5 ml Neb NEB SCH ×4 (01:57→19:07)
[2019-03-13] MEDS ORDERED: Lorazepam 2 MG/ML VIAL SLOW IVP PRN (02:05)
[2019-03-13 04:46] LABS: #Eosinphils 0.1 thou/uL (0.0-0.7); #Lymphocytes 1.1 thou/uL (1.20-3.40); #Monocytes 0.5 thou/uL (0.11-0.59); #Neutrophils 3.8 thou/uL (1.40-6.50); %Basophils 0.5 % (0.0-1.0); %Lymphocytes 20.4 % (21.0-51.0); %Monocytes 8.5 % (0.0-10.0); %Neutrophils 68.6 % (42.0-75.0); Hemoglobin 8.5 g/dL (14.0-18.0); Mean Corpuscular Hemoglobin 34.2 pg (27.0-31.0); Mean Platelet Volume 7.2 fL (7.4-10.4); Platelet Count 179 thou/uL (130-400); RBC Distribution Width 17.8 % (11.5-14.5); Red Blood Cell (RBC) Count 2.48 mill/uL (4.70-6.10); White Blood Cell (WBC) Count 5.6 thou/uL (4.8-10.8)
[2019-03-13 05:02] LABS: ALT (SGPT) Less than 7 U/L (8-55); AST (SGOT) 17 U/L (5-34); Albumin 3.1 g/dL (3.4-4.8); Alkaline Phosphatase 108 U/L (40-150); Anion Gap 15 mmol/L (10-20); BUN (Urea Nitrogen) 36 mg/dL (8.4-25.7); Bilirubin, Total 0.7 mg/dL (0.2-1.2); Calc. Creatinine Clearance 27 mL/min (70-130); Calcium 8.8 mg/dL (7.8-10.44); Carbon Dioxide 29 mmol/L (23-31); Chloride 96 mmol/L (98-107); Estimated GFR-MDRD 21; Globulin 3.4 g/dL (2.4-3.5); Glucose 74 mg/dL (80-115); Potassium 4.2 mmol/L (3.5-5.1); Protein, Total 6.5 g/dL (5.8-8.1); Sodium 136 mmol/L (136-145)
[2019-03-13] MEDS: Carvedilol 3.125 MG TAB PO SCH ×2 (07:40→21:11)
[2019-03-13] MEDS: Pantoprazole 40 MG VIAL IVP SCH ×2 (07:40→21:11)
[2019-03-13] MEDS: Sodium Chloride 0.9% (PF) 10 ML VIAL FS PRN (07:40)
[2019-03-13] MEDS: Folic Acid 1 MG TAB PO SCH (07:41)
[2019-03-13] MEDS: hydrALAZINE 25 MG TAB PO SCH (07:41)
[2019-03-13] MEDS: Fluticasone Propionate Nasal Spray 16 gm Bottle NASAL SCH (07:41)
[2019-03-13] MEDS: Cyanocobalamin (Vitamin B-12) 1,000 MCG TAB PO SCH (07:41)
[2019-03-13] MEDS: Raltegravir Potassium 400 MG TAB PO SCH ×2 (07:42→17:05)
[2019-03-13] MEDS ORDERED: MD-Gastroview 120 ML BOT ONE (10:26)
--- NOTE | 2019-03-13 11:55 | RAD ---
SMALL BOWEL SERIES: Date: 03/13/19 HISTORY: Small bowel obstruction. FINDINGS: There is unobstructed transit of contrast through loops of small bowel into the colon and rectum by 1 hour. Some of the small bowel loops are mildly dilated in the left hemidiaphragm. IMPRESSION: No evidence of high grade obstruction. POS: KENJI
--- NOTE | 2019-03-13 16:28 | PRG ---
DATE OF SERVICE: 03/13/2019 SUBJECTIVE: Mr. Villeda passed a black loose stool today. He has had no vomiting today. He did have small bowel x-ray today. OBJECTIVE: VITAL SIGNS: Temperature 98.8, pulse 85, blood pressure 136/85. GENERAL: He is in no acute distress. Alert and oriented x3. LUNGS: Clear to auscultation bilaterally. HEART: Regular rate and rhythm. ABDOMEN: Soft, nontender, and nondistended at this time. Bowel sounds are present. EXTREMITIES: No lower extremity edema. LABORATORY DATA: Hemoglobin is 8.5 after 4 units of transfusion, up from 5.9. IMPRESSION: 1. Gastric outlet obstruction and distention with a large amount of fluid removed from the stomach after NG placement yesterday. He had small-bowel follow-through today that showed un-obstructive flow of contrast from the stomach to the colon. Overall, I suspect he has gastroparesis, which likely caused worsening of his gastritis and could even cause some ischemic ulceration of the gastric mucosa. Recent endoscopy 10 days ago just showed friable edematous gastritis. He has had radiation to the GE junction recently for cancer at the gastroesophageal junction; however, biopsy showed no residual cancer in this area. CT scan suggested a more distal obstruction at the level of the fourth portion of the duodenum. However, again small-bowel follow-through flows freely through that area today after decompression of the stomach. There was some question of volvulus raised by CT. 2. Anemia secondary to end-stage renal disease and chronic disease and also a component of acute blood loss. RECOMMENDATIONS: 1. Proton pump inhibitor IV twice daily. 2. Advancing to clear liquid diet today. 3. Added trial of metoclopramide. Job ID: [id number]
--- NOTE | 2019-03-13 16:42 | PRG ---
DATE OF SERVICE: 03/13/2019 SUBJECTIVE: Mr. Villeda is a 63-year-old man with history of HIV. The patient was admitted with abdominal pain, nausea, and vomiting. Clinical examination was consistent with what I suspect was gastric outlet obstruction. The patient was placed on bowel rest with nasogastric tube decompression, evacuating over 5 L of succus entericus over the previous 24 hours. Today, the patient is awake and alert. Reports no abdominal pain, nausea, or vomiting. Small bowel follow-through was obtained today, which reveals no evidence of small bowel obstruction or gastric outlet obstruction for that matter. Nasogastric tube was removed and the patient was started on clear liquid diet, which he continues to tolerate. OBJECTIVE: VITAL SIGNS: Include blood pressure 136/85, pulse 85, respiratory rate is 17, temperature 98.8 degrees Fahrenheit, and oxygen saturation is 95% on 3 L by nasal cannula oxygen. HEART: Reveals regular rate and rhythm. LUNGS: Clear to auscultation bilaterally. ABDOMEN: Soft, nontender, and nondistended. NEUROLOGIC: Reveals no focal deficits present. LABORATORY FINDINGS: Today includes a CBC with 5600 white blood cells, hemoglobin and hematocrit 8.5 and 25.0 respectively, and platelet count 179,000. Metabolic profile; sodium 136, potassium 4.2, chloride is 96, bicarb 29, BUN 36, and creatinine is 3.54. IMPRESSION: Resolved gastric outlet obstruction versus gastroparesis. PLAN: Continue with clear liquid diet. If the patient tolerates this, may advance diet in the morning. There remains no acute surgical indication for this patient at this time. Job ID: [id number]
--- NOTE | 2019-03-13 17:08 | PDOC.HOSPP ---
- Subjective Subjective: pt up in bed wants to eat - Objective Vital Signs & Weight: Vital Signs (12 hours) Temp Pulse Resp BP Pulse Ox 03/13/19 08:00 95 03/13/19 07:47 98.8 F 85 17 136/85 90 L 03/13/19 07:41 90 03/13/19 07:05 90 14 Weight Admit Weight 193 lb 14.4 oz Weight 193 lb 14.4 oz I&O: 03/12/19 03/13/19 03/14/19 06:59 06:59 06:59 Intake Total 350 700 Output Total 5300 600 Balance 591 -3112 -600 Result Diagrams: 03/13/19 04:10 03/13/19 04:10 ROS - Review of Systems All systems: All other ROS were reviewed and found negative. ENT: denies: ear pain, ear discharge, nose pain, nose discharge, nose congestion , mouth pain, mouth swelling, throat pain, throat swelling, other Respiratory: denies: cough, dry, shortness of breath, hemoptysis, SOB with excertion, pleuritic pain, sputum, wheezing, other Cardiovascular: denies: chest pain, palpitations, orthopnea, paroxysmal noc. dyspnea, edema, light headedness, other - Medication Medications: Active Medications Generic Name Dose Route Start Last Admin Trade Name Clarisse PRN Reason Stop Dose Admin Carvedilol 3.125 mg 03/12/19 09:00 03/13/19 07:40 Coreg PO Not Given BID [facility] Cyanocobalamin 1,000 mcg 03/12/19 09:00 03/13/19 07:41 Vitamin B-12 PO Not Given DAILY [facility] Epoetin Elder-epbx 7,500 unit 03/12/19 09:00 03/12/19 11:26 Retacrit IVP Not Given TuThSa [facility] Etravirine 200 mg 03/12/19 08:00 03/13/19 17:01 Intelence PO 200 mg BID-PC [facility] Administration Fluticasone Propionate 0 gm 03/12/19 09:00 03/13/19 07:41 Flonase Nasal [place] NASAL Not Given DAILY [facility] Folic Acid 1 mg 03/12/19 09:00 03/13/19 07:41 Folvite PO Not Given DAILY [facility] Gabapentin 300 mg 03/12/19 21:00 03/12/19 20:23 Neurontin PO Not Given HS [facility] Hydralazine HCl 25 mg 03/12/19 09:00 03/13/19 07:41 Apresoline PO Not Given DAILY [facility] Ipratropium [place] 2.5 ml 03/12/19 01:00 03/13/19 13:18 Atrovent NEB 2.5 ml [id number] [facility] Administration Lorazepam 1 mg 03/13/19 02:05 03/13/19 02:17 Ativan SLOW IVP 03/16/19 02:06 1 mg ONE PRN Administration Anxiety/Agitation Nortriptyline HCl 25 mg 03/12/19 21:00 03/12/19 20:23 Pamelor PO Not Given HS [facility] Pantoprazole Sodium 40 mg 03/12/19 21:00 03/13/19 07:40 Protonix IVP 40 mg BID [facility] Administration Raltegravir 400 mg 03/12/19 09:00 03/13/19 17:05 Isentress PO 400 mg BID [facility] Administration Simvastatin 10 mg 03/12/19 21:00 03/12/19 20:23 Zocor PO Not Given QPM [facility] Sodium Chloride 10 ml 03/11/19 21:00 03/13/19 07:42 Flush - Normal Saline IVF 10 ml Q12HR [facility] Administration Sodium Chloride 10 ml 03/11/19 22:11 03/13/19 07:40 Normal Saline Pf FS 10 ml PRN PRN Administration RECONSTITUTION Zidovudine 100 mg 03/12/19 09:00 03/13/19 17:03 Retrovir PO 100 mg TID [facility] Administration - Exam Heart: negative: RRR, no murmur, no gallops, no rubs, normal peripheral pulses, irregular, diminshed peripheral pulses, murmur present, II/IV, III/IV Respiratory: negative: CTAB, no wheezes, no rales, no ronchi, normal chest expansion, no tachypnea, normal percussion, rales, rhonchi, tachypneic, wheezes Gastrointestinal: negative: soft, non-tender, non-distended, normal bowel sounds , no palpable masses, no hepatomegaly, no splenomegaly, no bruit, tender to palpation, distended, diminished bowl sounds, voluntary guarding Hosp A/P (1) SBO (small bowel obstruction) Code(s): K56.609 - UNSP INTESTNL OBST, UNSP TO PARTIAL VERSUS COMPLETE OBST Status: Acute (2) C. difficile colitis Code(s): A04.72 - ENTEROCOLITIS D/T CLOSTRIDIUM DIFFICILE, NOT SPCF RECUR Status: Acute (3) GI bleed Code(s): K92.2 - GASTROINTESTINAL HEMORRHAGE, UNSPECIFIED Status: Acute (4) DM (diabetes mellitus) Code(s): E11.9 - TYPE 2 DIABETES MELLITUS WITHOUT COMPLICATIONS Status: Chronic (5) ESRD (end stage renal disease) on dialysis Code(s): N18.6 - END STAGE RENAL DISEASE; Z99.2 - DEPENDENCE ON RENAL DIALYSIS Status: Chronic - Plan pt on ng tube is having some dark blood. will monitor hh. gi consulted and so is surgery. Pt is not on any cdiff meds. I will ask gi if ok to hold or continue it since he was not sent home with them.
[2019-03-13] MEDS: Gabapentin 300 MG CAP PO SCH (21:11)
[2019-03-13] MEDS: Simvastatin 5 MG TAB PO SCH (21:11)
[2019-03-13] MEDS: Nortriptyline HCl 25 MG CAP PO SCH (21:11)
[2019-03-13] MEDS: Metoclopramide HCl 10 MG/2 ML VIAL IVP SCH (21:14)
--- NOTE | 2019-03-13 22:13 | PRG ---
DATE OF SERVICE: 03/13/2019 SUBJECTIVE: The patient is seen and examined. OBJECTIVE: VITAL SIGNS: Noted with the following vital signs; afebrile, temperature 98.8, pulse 85, respiratory rate of 17, O2 saturation of 95% with a blood pressure of 136/85. HEENT: Unremarkable. CARDIOVASCULAR SYSTEM: First and second heart sounds were heard. RESPIRATORY SYSTEM: Clear to auscultation. DIGESTIVE SYSTEM: Revealed a benign abdomen. EXTREMITIES: No peripheral edema. SKIN: No new gross rash. LYMPHATICS: No peripheral lymphadenopathy. LABORATORY INVESTIGATION: Showed hemoglobin of 8.5. Chemistry showed a creatinine of 3.54, potassium 4.2. IMPRESSION: 1. End-stage renal disease, on hemodialysis. 2. Anemia, status post blood transfusion. PLAN: 1. We will continue with current dialysis regimen up to date until Monday. 2. Continue erythropoiesis stimulating agent. 3. Further management to be dependent on the clinical course. Job ID: [id number]
--- NOTE | 2019-03-13 22:56 | PRG ---
DATE OF SERVICE: 03/13/2019 SUBJECTIVE: The patient remains on the medical floor. The patient is currently awake, alert, in no distress. The patient denies any nausea or vomiting. The patient is tolerating a clear liquid diet. The patient reports frequent loose stools. The patient denies any abdominal pain at this time. OBJECTIVE: VITAL SIGNS: Stable. The patient remains afebrile. GENERAL: The patient is awake, alert, in no distress, on 3 L nasal cannula. ABDOMEN: Soft, nontender, nondistended. IMPRESSION: Resolved gastric outlet obstruction versus gastroparesis. PLAN: Continue with clear liquid diet. If the patient tolerates, may advance diet in the morning. There remains no acute surgical indication for this patient at this time. Job ID: [id number] [facility]
[2019-03-14] MEDS: Ipratropium Bromide 2.5 ml Neb NEB SCH ×4 (01:17→19:10)
[2019-03-14] MEDS ORDERED: Lorazepam 2 MG/ML VIAL SLOW IVP PRN (01:26)
[2019-03-14] MEDS: Metoclopramide HCl 10 MG/2 ML VIAL IVP SCH ×3 (05:09→21:18)
[2019-03-14 07:45] LABS: Magnesium 1.7 mg/dL (1.6-2.6); Phosphorus 4.2 mg/dL (2.3-4.7)
[2019-03-14] MEDS: Fluticasone Propionate Nasal Spray 16 gm Bottle NASAL SCH (07:57)
[2019-03-14] MEDS: Sodium Chloride 0.9% (PF) 10 ML VIAL FS PRN (07:58)
[2019-03-14] MEDS: Pantoprazole 40 MG VIAL IVP SCH ×2 (07:58→21:07)
[2019-03-14] MEDS: Folic Acid 1 MG TAB PO SCH ×2 (08:01→08:05)
[2019-03-14] MEDS: Carvedilol 3.125 MG TAB PO SCH ×2 (08:05→21:08)
[2019-03-14] MEDS: Cyanocobalamin (Vitamin B-12) 1,000 MCG TAB PO SCH (08:06)
[2019-03-14] MEDS: hydrALAZINE 25 MG TAB PO SCH (08:06)
[2019-03-14] MEDS: Raltegravir Potassium 400 MG TAB PO SCH ×2 (08:07→21:07)
[2019-03-14 11:56] LABS: #Eosinphils 0.1 thou/uL (0.0-0.7); #Lymphocytes 0.7 thou/uL (1.20-3.40); #Monocytes 0.4 thou/uL (0.11-0.59); #Neutrophils 2.3 thou/uL (1.40-6.50); %Basophils 0.4 % (0.0-1.0); %Eosinophils 2.4 % (0.0-10.0); %Lymphocytes 18.6 % (21.0-51.0); %Monocytes 12.5 % (0.0-10.0); %Neutrophils 66.2 % (42.0-75.0); Hemoglobin 7.6 g/dL (14.0-18.0); Mean Corpuscular HGB CONC 33.5 g/dL (32.0-36.0); Mean Corpuscular Hemoglobin 33.9 pg (27.0-31.0); Mean Platelet Volume 6.8 fL (7.4-10.4); Platelet Count 174 thou/uL (130-400); RBC Distribution Width 17.4 % (11.5-14.5); Red Blood Cell (RBC) Count 2.24 mill/uL (4.70-6.10); White Blood Cell (WBC) Count 3.5 thou/uL (4.8-10.8)
[2019-03-14] MEDS: EPOETIN ALFA-EPBX (ESRD) 4,000 UNIT/ML VIAL IVP SCH (13:37)
[2019-03-14] MEDS: Vancomycin HCl 25 MG/ML Oral PO SCH ×2 (14:20→14:27)
--- NOTE | 2019-03-14 15:19 | PDOC.HOSPP ---
- Subjective Subjective: pt up in bed no complains - Objective Vital Signs & Weight: Vital Signs (12 hours) Temp Pulse Resp BP BP Pulse Ox 03/14/19 14:34 98.1 F 78 18 148/79 H 97 03/14/19 08:06 67 114/68 03/14/19 08:00 97.8 F 67 20 95 03/14/19 07:30 67 21 H 100 03/14/19 05:14 63 18 115/68 95 Weight Admit Weight 193 lb 14.4 oz Weight 193 lb 14.4 oz I&O: 03/13/19 03/14/19 03/15/19 06:59 06:59 06:59 Intake Total 700 100 Output Total 5300 600 Balance -4600 -500 Result Diagrams: 03/14/19 11:20 03/13/19 04:10 ROS - Review of Systems All systems: All other ROS were reviewed and found negative. Respiratory: denies: cough, dry, shortness of breath, hemoptysis, SOB with excertion, pleuritic pain, sputum, wheezing, other Cardiovascular: denies: chest pain, palpitations, orthopnea, paroxysmal noc. dyspnea, edema, light headedness, other Gastrointestinal: denies: nausea, vomitting, abdominal pain, diarrhea, constipation, melena, hematochezia, other - Medication Medications: Active Medications Generic Name Dose Route Start Last Admin Trade Name Freq PRN Reason Stop Dose Admin Carvedilol 3.125 mg 03/12/19 09:00 03/14/19 08:05 Coreg PO 3.125 mg BID [facility] Administration Cyanocobalamin 1,000 mcg 03/12/19 09:00 03/14/19 08:06 Vitamin B-12 PO 1,000 mcg DAILY [facility] Administration Epoetin Elder-epbx 7,500 unit 03/12/19 09:00 03/14/19 13:37 Retacrit IVP 7,500 unit TuThSa [facility] Administration Etravirine 200 mg 03/12/19 08:00 03/14/19 08:05 Intelence PO 200 mg BID-PC [facility] Administration Fluticasone Propionate 0 gm 03/12/19 09:00 03/14/19 07:57 Flonase Nasal [place] NASAL 1 spr DAILY [facility] Administration Folic Acid 1 mg 03/12/19 09:00 03/14/19 08:05 Folvite PO 1 mg DAILY [facility] Administration Gabapentin 300 mg 03/12/19 21:00 03/13/19 21:11 Neurontin PO 300 mg HS [facility] Administration Hydralazine HCl 25 mg 03/12/19 09:00 03/14/19 08:06 Apresoline PO Not Given DAILY [facility] Ipratropium [place] 2.5 ml 03/12/19 01:00 03/14/19 13:58 Atrovent NEB Not Given [id number] [facility] Metoclopramide HCl 10 mg 03/13/19 22:00 03/14/19 05:09 Reglan IVP 10 mg Q8HR [facility] Administration Nortriptyline HCl 25 mg 03/12/19 21:00 03/13/19 21:11 Pamelor PO 25 mg HS [facility] Administration Pantoprazole Sodium 40 mg 03/12/19 21:00 03/14/19 07:58 Protonix IVP 40 mg BID [facility] Administration Raltegravir 400 mg 03/12/19 09:00 03/14/19 08:07 Isentress PO 400 mg BID [facility] Administration Simvastatin 10 mg 03/12/19 21:00 03/13/19 21:11 Zocor PO 10 mg QPM [facility] Administration Sodium Chloride 10 ml 03/11/19 21:00 03/14/19 08:07 Flush - Normal Saline IVF 10 ml Q12HR [facility] Administration Sodium Chloride 10 ml 03/11/19 22:11 03/14/19 07:58 Normal Saline Pf FS 10 ml PRN PRN Administration RECONSTITUTION Vancomycin HCl 250 mg 03/14/19 12:00 03/14/19 14:27 First Vancomycin PO Not Given Q6HR [facility] Zidovudine 100 mg 03/12/19 09:00 03/14/19 14:21 Retrovir PO Not Given TID [facility] - Exam Heart: negative: RRR, no murmur, no gallops, no rubs, normal peripheral pulses, irregular, diminshed peripheral pulses, murmur present, II/IV, III/IV Respiratory: negative: CTAB, no wheezes, no rales, no ronchi, normal chest expansion, no tachypnea, normal percussion, rales, rhonchi, tachypneic, wheezes Hosp A/P (1) SBO (small bowel obstruction) Code(s): K56.609 - UNSP INTESTNL OBST, UNSP TO PARTIAL VERSUS COMPLETE OBST Status: Acute (2) C. difficile colitis Code(s): A04.72 - ENTEROCOLITIS D/T CLOSTRIDIUM DIFFICILE, NOT SPCF RECUR Status: Acute (3) GI bleed Code(s): K92.2 - GASTROINTESTINAL HEMORRHAGE, UNSPECIFIED Status: Acute (4) DM (diabetes mellitus) Code(s): E11.9 - TYPE 2 DIABETES MELLITUS WITHOUT COMPLICATIONS Status: Chronic (5) ESRD (end stage renal disease) on dialysis Code(s): N18.6 - END STAGE RENAL DISEASE; Z99.2 - DEPENDENCE ON RENAL DIALYSIS Status: Chronic - Plan pt cannot tolerate oral vanco, will start him on dificid. pt now tolerating oral well. NG removed. pt's hh still low will monitor and transfuse as needed.
--- NOTE | 2019-03-14 19:47 | PRG ---
DATE OF SERVICE: 03/14/2019 SUBJECTIVE: The patient is currently on the medicine floor. He is the patient we are seeing in consultation for suspected small-bowel obstruction. Yesterday, his upper GI with small-bowel follow-through was unremarkable. The patient has had bowel movements. He continues to pass flatus and he tolerated a diet. OBJECTIVE: VITAL SIGNS: Temperature is 97.8, heart rate 67, blood pressure 148/79, respirations 20, and oxygen saturations 95% on 3 L via nasal cannula. GENERAL: The patient is resting comfortably in bed. Appears in no distress. He is awaiting to go to his scheduled dialysis this morning. HEART: Regular rate and rhythm. ABDOMEN: Soft, flat, and nontender with active bowel sounds. LUNGS: Clear to auscultation bilaterally. ASSESSMENT/PLAN: Resolved gastric outlet obstruction versus gastroparesis. Plan to be to continue supportive care per his primary team. Diet as tolerated. There remains no surgical indication at this time and we will sign off. Please consult us or notify us again if there is change in the patient's exam. Job ID: [id number]
--- NOTE | 2019-03-14 20:41 | PRG ---
DATE OF SERVICE: 03/14/2019 SUBJECTIVE: Mr. Villeda is eating solid food today, which he is tolerating well so far. He has had diarrhea today, but it is better than after having had the Gastrografin yesterday. OBJECTIVE: VITAL SIGNS: Temperature 98.1, pulse 95, blood pressure 148/79. GENERAL: He is in no acute distress. Alert and oriented x3. LUNGS: Clear to auscultation bilaterally. HEART: Regular rate and rhythm. ABDOMEN: Soft, nontender, nondistended. Bowel sounds are present. EXTREMITIES: No lower extremity edema. IMPRESSION: 1. Gastric outlet obstruction versus gastroparesis. His symptoms improved rapidly and Gastrografin with small bowel follow-through passed through quickly. He is now tolerating a solid diet. Now, that he is having diarrhea and tolerating his food, I will back off the metoclopramide. 2. Recent Clostridium difficile infection in last hospital stay. He remains on treatment for this. He was switched over to Dificid. 3. Human immunodeficiency virus. 4. GI bleed and anemia of acute blood loss. EGD on previous hospitalization showed diffuse gastritis. The marked gastric distention on presentation likely contributed to this and could have some ischemic ulceration related to that significant mucosal distention. Treatment for that is proton pump inhibitor and monitor for recurrence of the gastric distention. RECOMMENDATIONS: 1. Continue Dificid. 2. Continue proton pump inhibitor. 3. I will back off the metoclopramide. 4. We will see how he continues to tolerate a solid diet. I will adjust the diet however to a fiber restricted diet. Job ID: [id number]
[2019-03-14] MEDS: Fidaxomicin 200 MG TAB PO SCH (21:07)
[2019-03-14] MEDS: Nortriptyline HCl 25 MG CAP PO SCH (21:08)
[2019-03-14] MEDS: Gabapentin 300 MG CAP PO SCH (21:08)
[2019-03-14] MEDS: Simvastatin 5 MG TAB PO SCH (21:08)
[2019-03-15] MEDS: Ipratropium Bromide 2.5 ml Neb NEB SCH ×4 (00:35→18:49)
[2019-03-15] MEDS: Metoclopramide HCl 10 MG/2 ML VIAL IVP SCH ×2 (05:35→14:22)
[2019-03-15] MEDS: Fidaxomicin 200 MG TAB PO SCH ×2 (08:43→20:29)
[2019-03-15] MEDS: hydrALAZINE 25 MG TAB PO SCH (08:43)
[2019-03-15] MEDS: Carvedilol 3.125 MG TAB PO SCH ×2 (08:43→20:29)
[2019-03-15] MEDS: Cyanocobalamin (Vitamin B-12) 1,000 MCG TAB PO SCH (08:43)
[2019-03-15] MEDS: Raltegravir Potassium 400 MG TAB PO SCH ×2 (08:43→20:30)
[2019-03-15] MEDS: Fluticasone Propionate Nasal Spray 16 gm Bottle NASAL SCH (08:44)
[2019-03-15] MEDS: Pantoprazole 40 MG VIAL IVP SCH (08:44)
[2019-03-15] MEDS: Folic Acid 1 MG TAB PO SCH (08:44)
--- NOTE | 2019-03-15 14:12 | PDOC.HOSPP ---
- Subjective Subjective: pt up in bed no complains - Objective Vital Signs & Weight: Vital Signs (12 hours) Temp Pulse Resp BP BP Pulse Ox 03/15/19 13:47 86 20 97 03/15/19 08:43 89 148/84 H 03/15/19 08:34 99.3 F 89 22 H 148/93 H 93 L 03/15/19 06:52 90 20 97 Weight Admit Weight 193 lb 14.4 oz Weight 193 lb 14.4 oz I&O: 03/14/19 03/15/19 03/16/19 06:59 06:59 06:59 Intake Total 100 Output Total 600 Balance -500 Result Diagrams: 03/14/19 11:20 03/13/19 04:10 ROS - Review of Systems All systems: All other ROS were reviewed and found negative. ENT: denies: ear pain, ear discharge, nose pain, nose discharge, nose congestion , mouth pain, mouth swelling, throat pain, throat swelling, other Respiratory: denies: cough, dry, shortness of breath, hemoptysis, SOB with excertion, pleuritic pain, sputum, wheezing, other Cardiovascular: denies: chest pain, palpitations, orthopnea, paroxysmal noc. dyspnea, edema, light headedness, other - Medication Medications: Active Medications Generic Name Dose Route Start Last Admin Trade Name Darioq PRN Reason Stop Dose Admin Carvedilol 3.125 mg 03/12/19 09:00 03/15/19 08:43 Coreg PO 3.125 mg BID ESME Administration Cyanocobalamin 1,000 mcg 03/12/19 09:00 03/15/19 08:43 Vitamin B-12 PO 1,000 mcg DAILY ESME Administration Epoetin Elder-epbx 7,500 unit 03/12/19 09:00 03/14/19 13:37 Retacrit IVP 7,500 unit TuThSa ESME Administration Etravirine 200 mg 03/12/19 08:00 03/15/19 08:42 Intelence PO 200 mg BID-PC ESME Administration Fidaxomicin 200 mg 03/14/19 21:00 03/15/19 08:43 Dificid PO 200 mg BID ESME Administration Fluticasone Propionate 0 gm 03/12/19 09:00 03/15/19 08:44 Flonase Nasal [place] NASAL 1 spr DAILY ESME Administration Folic Acid 1 mg 03/12/19 09:00 03/15/19 08:44 Folvite PO 1 mg DAILY ESME Administration Gabapentin 300 mg 03/12/19 21:00 03/14/19 21:08 Neurontin PO 300 mg HS ESME Administration Hydralazine HCl 25 mg 03/12/19 09:00 03/15/19 08:43 Apresoline PO 25 mg DAILY ESME Administration Ipratropium [place] 2.5 ml 03/12/19 01:00 03/15/19 13:47 Atrovent NEB 2.5 ml [id number] ESME Administration Metoclopramide HCl 10 mg 03/13/19 22:00 03/15/19 05:35 Reglan IVP 10 mg Q8HR ESME Administration Nortriptyline HCl 25 mg 03/12/19 21:00 03/14/19 21:08 Pamelor PO 25 mg HS ESME Administration Pantoprazole Sodium 40 mg 03/12/19 21:00 03/15/19 08:44 Protonix IVP 40 mg BID ESME Administration Raltegravir 400 mg 03/12/19 09:00 03/15/19 08:43 Isentress PO 400 mg BID ESME Administration Simvastatin 10 mg 03/12/19 21:00 03/14/19 21:08 Zocor PO 10 mg QPM ESME Administration Sodium Chloride 10 ml 03/11/19 21:00 03/15/19 08:44 Flush - Normal Saline IVF 10 ml Q12HR ESME Administration Sodium Chloride 10 ml 03/11/19 22:11 03/14/19 07:58 Normal Saline Pf FS 10 ml PRN PRN Administration RECONSTITUTION Zidovudine 100 mg 03/12/19 09:00 03/15/19 08:43 Retrovir PO 100 mg TID ESME Administration - Exam Neck: negative: supple, symmetric, no JVD, no Thyromegaly, no lymphadenopathy, no carotid bruit, JVD Heart: negative: RRR, no murmur, no gallops, no rubs, normal peripheral pulses, irregular, diminshed peripheral pulses, murmur present, II/IV, III/IV Respiratory: negative: CTAB, no wheezes, no rales, no ronchi, normal chest expansion, no tachypnea, normal percussion, rales, rhonchi, tachypneic, wheezes Hosp A/P (1) SBO (small bowel obstruction) Code(s): K56.609 - UNSP INTESTNL OBST, UNSP TO PARTIAL VERSUS COMPLETE OBST Status: Acute (2) C. difficile colitis Code(s): A04.72 - ENTEROCOLITIS D/T CLOSTRIDIUM DIFFICILE, NOT SPCF RECUR Status: Acute (3) GI bleed Code(s): K92.2 - GASTROINTESTINAL HEMORRHAGE, UNSPECIFIED Status: Acute (4) DM (diabetes mellitus) Code(s): E11.9 - TYPE 2 DIABETES MELLITUS WITHOUT COMPLICATIONS Status: Chronic (5) ESRD (end stage renal disease) on dialysis Code(s): N18.6 - END STAGE RENAL DISEASE; Z99.2 - DEPENDENCE ON RENAL DIALYSIS Status: Chronic - Plan will continue dificid for now. no more diarrhea. I will start him on stool softner. pt does not want to go to rehab. If hh stable in am will discharge.
--- NOTE | 2019-03-15 17:07 | PRG ---
DATE OF SERVICE: 03/15/2019 SUBJECTIVE: Mr. Villeda is tolerating a solid diet well. He has had only one bowel movement today. He has no abdominal pain or nausea. OBJECTIVE: VITAL SIGNS: Temperature 99.3, pulse 86, blood pressure 148/93. GENERAL: He is in no acute distress. Alert and oriented x3. LUNGS: Clear to auscultation bilaterally. HEART: Regular rate and rhythm without murmur. ABDOMEN: Soft, nontender, nondistended. Bowel sounds are present. EXTREMITIES: No lower extremity edema. LABORATORY DATA: Hemoglobin is 7.6 without signs of overt bleeding today. IMPRESSION: 1. Gastric dysmotility and presentation with gastric outlet obstruction. This is resolved. He is tolerating solid diet well. He is having normal bowel movement today. 2. Recent Clostridium difficile infection, for which he is remained on Dificid. 3. Multifactorial anemia. This did have a significant component of GI bleeding on presentation; however, the bleeding appears to be stopped at this point, his hemoglobin did drift down today. RECOMMENDATIONS: 1. Continue Dificid to complete a 14-day course. 2. Continue proton pump inhibitor. We will transition this to oral dosing twice daily. 3. Reduce the metoclopramide to 5 mg 3 times a day before meals. 4. I will sign off for now. I would expect the metoclopramide should be able to be weaned off further over the next couple of weeks. Discharge home is anticipated soon, in that he is tolerating a regular diet and no longer having any overt bleeding at this point. Please call if GI can be of assistance. Job ID: [id number]
[2019-03-15] MEDS: Metoclopramide HCl 10 MG TAB PO SCH (17:27)
--- NOTE | 2019-03-15 20:19 | PRG ---
DATE OF SERVICE: 03/15/2019 SUBJECTIVE: The patient is seen and examined with no new complaints. Noted to be hemodynamically stable. OBJECTIVE: HEENT: Unremarkable. CARDIOVASCULAR SYSTEM: First and second heart sounds were heard. DIGESTIVE SYSTEM: Revealed a benign abdomen. EXTREMITIES: No peripheral edema. IMPRESSION: 1. End-stage renal disease, on hemodialysis. 2. Severe anemia, status post blood transfusion. PLAN: 1. We will continue with current renal replacement therapy schedule. 2. Further management will be dependent on the clinical course. Job ID: [id number]
[2019-03-15] MEDS: Nortriptyline HCl 25 MG CAP PO SCH (20:29)
[2019-03-15] MEDS: Gabapentin 300 MG CAP PO SCH (20:29)
[2019-03-15] MEDS: Senokot S 8.6-50 MG TAB PO SCH (20:30)
[2019-03-15] MEDS: Simvastatin 5 MG TAB PO SCH (20:30)
[2019-03-15] MEDS ORDERED: Morphine 2 MG/ML SYRINGE SLOW IVP SCH (21:00)
[2019-03-15] MEDS: Melatonin 3 MG TAB PO PRN (21:12)
[2019-03-16] MEDS: Ipratropium Bromide 2.5 ml Neb NEB SCH ×4 (00:35→18:35)
[2019-03-16 06:02] LABS: #Eosinphils 0.1 thou/uL (0.0-0.7); #Monocytes 0.5 thou/uL (0.11-0.59); #Neutrophils 2.7 thou/uL (1.40-6.50); %Basophils 0.8 % (0.0-1.0); %Eosinophils 2.1 % (0.0-10.0); %Monocytes 10.6 % (0.0-10.0); %Neutrophils 63.5 % (42.0-75.0); Hemoglobin 7.1 g/dL (14.0-18.0); Mean Corpuscular HGB CONC 33.9 g/dL (32.0-36.0); Mean Corpuscular Hemoglobin 34.7 pg (27.0-31.0); Mean Platelet Volume 6.7 fL (7.4-10.4); Platelet Count 170 thou/uL (130-400); RBC Distribution Width 17.2 % (11.5-14.5); Red Blood Cell (RBC) Count 2.04 mill/uL (4.70-6.10); White Blood Cell (WBC) Count 4.3 thou/uL (4.8-10.8)
[2019-03-16] MEDS: Metoclopramide HCl 10 MG TAB PO SCH ×3 (07:28→17:37)
[2019-03-16] MEDS ORDERED: Bisacodyl 5 MG TAB PO SCH (07:45)
[2019-03-16 09:05] LABS: Anion Gap 14 mmol/L (10-20); BUN (Urea Nitrogen) 44 mg/dL (8.4-25.7); Calc. Creatinine Clearance 24 mL/min (70-130); Calcium 8.3 mg/dL (7.8-10.44); Carbon Dioxide 26 mmol/L (23-31); Chloride 97 mmol/L (98-107); Estimated GFR-MDRD 19; Glucose 85 mg/dL (80-115); Potassium 5.3 mmol/L (3.5-5.1); Sodium 132 mmol/L (136-145)
[2019-03-16] MEDS: Cyanocobalamin (Vitamin B-12) 1,000 MCG TAB PO SCH (14:52)
[2019-03-16] MEDS: Raltegravir Potassium 400 MG TAB PO SCH ×2 (14:52→20:52)
[2019-03-16] MEDS: hydrALAZINE 25 MG TAB PO SCH (14:53)
[2019-03-16] MEDS: Folic Acid 1 MG TAB PO SCH (14:54)
[2019-03-16] MEDS: Carvedilol 3.125 MG TAB PO SCH ×2 (14:54→20:52)
[2019-03-16] MEDS: Senokot S 8.6-50 MG TAB PO SCH ×2 (14:55→20:53)
[2019-03-16] MEDS: Fidaxomicin 200 MG TAB PO SCH ×2 (14:58→20:52)
[2019-03-16] MEDS: Fluticasone Propionate Nasal Spray 16 gm Bottle NASAL SCH (15:00)
--- NOTE | 2019-03-16 17:20 | PDOC.HOSPP ---
- Subjective Subjective: pt up in bed no complains. He wants to go to rehab now. - Objective Vital Signs & Weight: Vital Signs (12 hours) Temp Pulse Resp BP BP Pulse Ox 03/16/19 14:53 82 150/86 H 03/16/19 07:28 98.3 F 80 17 140/88 96 03/16/19 07:13 74 12 Weight Admit Weight 193 lb 14.4 oz Weight 193 lb 14.4 oz I&O: 03/15/19 03/16/19 03/17/19 06:59 06:59 06:59 Intake Total 521 740 Balance 521 740 Result Diagrams: 03/16/19 05:33 03/16/19 08:35 ROS - Review of Systems All systems: All other ROS were reviewed and found negative. Respiratory: denies: cough, dry, shortness of breath, hemoptysis, SOB with excertion, pleuritic pain, sputum, wheezing, other Cardiovascular: denies: chest pain, palpitations, orthopnea, paroxysmal noc. dyspnea, edema, light headedness, other Gastrointestinal: denies: nausea, vomitting, abdominal pain, diarrhea, constipation, melena, hematochezia, other - Medication Medications: Active Medications Generic Name Dose Route Start Last Admin Trade Name Freq PRN Reason Stop Dose Admin Carvedilol 3.125 mg 03/12/19 09:00 03/16/19 14:54 Coreg PO 3.125 mg BID ESME Administration Cyanocobalamin 1,000 mcg 03/12/19 09:00 03/16/19 14:52 Vitamin B-12 PO 1,000 mcg DAILY ESME Administration Epoetin Elder-epbx 7,500 unit 03/12/19 09:00 03/14/19 13:37 Retacrit IVP 7,500 unit TuThSa ESME Administration Etravirine 200 mg 03/12/19 08:00 03/16/19 14:55 Intelence PO 200 mg BID-PC ESME Administration Fidaxomicin 200 mg 03/14/19 21:00 03/16/19 14:58 Dificid PO 200 mg BID ESME Administration Fluticasone Propionate 0 gm 03/12/19 09:00 03/16/19 15:00 Flonase Nasal [place] NASAL 2 spr DAILY ESME Administration Folic Acid 1 mg 03/12/19 09:00 03/16/19 14:54 Folvite PO 1 mg DAILY ESME Administration Gabapentin 300 mg 03/12/19 21:00 03/15/19 20:29 Neurontin PO 300 mg HS ESME Administration Hydralazine HCl 25 mg 03/12/19 09:00 03/16/19 14:53 Apresoline PO 25 mg DAILY ESME Administration Ipratropium [place] 2.5 ml 03/12/19 01:00 03/16/19 13:59 Atrovent NEB Not Given [id number] ESME Melatonin 3 mg 03/15/19 20:41 03/15/19 21:12 Melatonin PO 3 mg HS PRN Administration Insomnia Metoclopramide HCl 5 mg 03/15/19 17:00 03/16/19 15:13 Reglan PO 5 mg AC ESME Administration Nortriptyline HCl 25 mg 03/12/19 21:00 03/15/19 20:29 Pamelor PO 25 mg HS ESME Administration Pantoprazole Sodium 40 mg 03/15/19 21:00 03/16/19 14:53 Protonix PO 40 mg BID ESME Administration Raltegravir 400 mg 03/12/19 09:00 03/16/19 14:52 Isentress PO 400 mg BID ESME Administration Senna/Docusate Sodium 1 tab 03/15/19 21:00 03/16/19 14:55 Senokot S PO Not Given BID ESME Simvastatin 10 mg 03/12/19 21:00 03/15/19 20:30 Zocor PO 10 mg QPM ESME Administration Sodium Chloride 10 ml 03/11/19 21:00 03/16/19 14:55 Flush - Normal Saline IVF 10 ml Q12HR ESME Administration Sodium Chloride 10 ml 03/11/19 20:25 03/15/19 21:13 Flush - Normal Saline IVF 10 ml PRN PRN Administration Saline Flush Sodium Chloride 10 ml 03/11/19 22:11 03/14/19 07:58 Normal Saline Pf FS 10 ml PRN PRN Administration RECONSTITUTION Zidovudine 100 mg 03/12/19 09:00 03/16/19 14:56 Retrovir PO 100 mg TID ESME Administration - Exam Neck: negative: supple, symmetric, no JVD, no Thyromegaly, no lymphadenopathy, no carotid bruit, JVD Heart: negative: RRR, no murmur, no gallops, no rubs, normal peripheral pulses, irregular, diminshed peripheral pulses, murmur present, II/IV, III/IV Respiratory: negative: CTAB, no wheezes, no rales, no ronchi, normal chest expansion, no tachypnea, normal percussion, rales, rhonchi, tachypneic, wheezes Hosp A/P (1) SBO (small bowel obstruction) Code(s): K56.609 - UNSP INTESTNL OBST, UNSP TO PARTIAL VERSUS COMPLETE OBST Status: Acute (2) C. difficile colitis Code(s): A04.72 - ENTEROCOLITIS D/T CLOSTRIDIUM DIFFICILE, NOT SPCF RECUR Status: Acute (3) GI bleed Code(s): K92.2 - GASTROINTESTINAL HEMORRHAGE, UNSPECIFIED Status: Acute (4) DM (diabetes mellitus) Code(s): E11.9 - TYPE 2 DIABETES MELLITUS WITHOUT COMPLICATIONS Status: Chronic (5) ESRD (end stage renal disease) on dialysis Code(s): N18.6 - END STAGE RENAL DISEASE; Z99.2 - DEPENDENCE ON RENAL DIALYSIS Status: Chronic - Plan will ask rehab to revaluate pt again. pt's hh is low stable. He is eating. will give pt stool softners for bowel movement.
[2019-03-16] MEDS: EPOETIN ALFA-EPBX (ESRD) 4,000 UNIT/ML VIAL IVP SCH (17:38)
[2019-03-16] MEDS: Melatonin 3 MG TAB PO PRN (20:51)
[2019-03-16] MEDS: Gabapentin 300 MG CAP PO SCH (20:51)
[2019-03-16] MEDS: Nortriptyline HCl 25 MG CAP PO SCH (20:51)
[2019-03-16] MEDS: Morphine 2 MG/ML SYRINGE SLOW IVP PRN (20:52)
[2019-03-16] MEDS: Simvastatin 5 MG TAB PO SCH (20:52)
--- NOTE | 2019-03-16 21:51 | PRG ---
DATE OF SERVICE: 03/16/2019 SUBJECTIVE: The patient was seen and examined today at dialysis, sleepy but arousable, noted with the following vital signs. OBJECTIVE: VITAL SIGNS: Afebrile, temperature 98.3, pulse 80, and blood pressure 150/80. HEENT: Unremarkable. CARDIOVASCULAR SYSTEM: First and second heart sounds were heard. RESPIRATORY SYSTEM: Clear to auscultation. DIGESTIVE SYSTEM: Revealed a benign abdomen. Positive bowel sounds. EXTREMITIES: No peripheral edema. SKIN: No new gross rash. LYMPHATICS: No peripheral lymphadenopathy. IMPRESSION: 1. End-stage renal disease, hemodialysis dependent, due for dialysis today. 2. Anemia, status post blood transfusion. PLAN: 1. We will continue with current hemodialysis regimen/schedule. 2. Further management will be dependent on the clinical course. Job ID: [id number]
[2019-03-17] MEDS ORDERED: Melatonin 3 MG TAB PO PRN (00:38)
[2019-03-17] MEDS: Ipratropium Bromide 2.5 ml Neb NEB SCH ×5 (01:24→23:57)
[2019-03-17] MEDS: Folic Acid 1 MG TAB PO SCH (07:52)
[2019-03-17] MEDS: hydrALAZINE 25 MG TAB PO SCH (07:53)
[2019-03-17] MEDS: Metoclopramide HCl 10 MG TAB PO SCH ×3 (07:57→12:26)
[2019-03-17] MEDS: Carvedilol 3.125 MG TAB PO SCH ×2 (07:58→20:50)
[2019-03-17] MEDS: Cyanocobalamin (Vitamin B-12) 1,000 MCG TAB PO SCH (07:58)
[2019-03-17] MEDS: Raltegravir Potassium 400 MG TAB PO SCH ×2 (07:59→20:50)
[2019-03-17] MEDS: Fidaxomicin 200 MG TAB PO SCH ×2 (08:00→20:51)
[2019-03-17] MEDS: Fluticasone Propionate Nasal Spray 16 gm Bottle NASAL SCH (08:01)
[2019-03-17] MEDS: Senokot S 8.6-50 MG TAB PO SCH ×2 (09:00→20:52)
[2019-03-17] MEDS: metroNIDAZOLE 500 MG TAB PO SCH ×2 (15:06→20:50)
--- NOTE | 2019-03-17 16:13 | PDOC.HOSPP ---
- Subjective Subjective: pt up in bed complains of having diarrhea - Objective Vital Signs & Weight: Vital Signs (12 hours) Temp Pulse Resp BP BP Pulse Ox 03/17/19 13:20 82 16 03/17/19 08:06 93 L 03/17/19 07:59 99.4 F 82 17 113/72 96 03/17/19 07:53 86 139/79 03/17/19 07:40 83 16 Weight Admit Weight 193 lb 14.4 oz Weight 193 lb 14.4 oz I&O: 03/16/19 03/17/19 03/18/19 06:59 06:59 06:59 Intake Total 521 4381 Balance 521 4381 Result Diagrams: 03/16/19 05:33 03/16/19 08:35 ROS - Review of Systems All systems: All other ROS were reviewed and found negative. Respiratory: denies: cough, dry, shortness of breath, hemoptysis, SOB with excertion, pleuritic pain, sputum, wheezing, other Cardiovascular: denies: chest pain, palpitations, orthopnea, paroxysmal noc. dyspnea, edema, light headedness, other Gastrointestinal: reports: diarrhea - Medication Medications: Active Medications Generic Name Dose Route Start Last Admin Trade Name Freq PRN Reason Stop Dose Admin Carvedilol 3.125 mg 03/12/19 09:00 03/17/19 07:58 Coreg PO 3.125 mg BID ESME Administration Cyanocobalamin 1,000 mcg 03/12/19 09:00 03/17/19 07:58 Vitamin B-12 PO 1,000 mcg DAILY ESME Administration Epoetin Elder-epbx 7,500 unit 03/12/19 09:00 03/16/19 17:38 [facility] Administration Etravirine 200 mg 03/12/19 08:00 03/17/19 07:58 Intelence PO 200 mg BID-PC ESME Administration Fidaxomicin 200 mg 03/14/19 21:00 03/17/19 08:00 Dificid PO 200 mg BID ESME Administration Fluticasone Propionate 0 gm 03/12/19 09:00 03/17/19 08:01 Flonase Nasal [place] NASAL 2 spr DAILY ESME Administration Folic Acid 1 mg 03/12/19 09:00 03/17/19 07:52 Folvite PO 1 mg DAILY ESME Administration Gabapentin 300 mg 03/12/19 21:00 03/16/19 20:51 Neurontin PO 300 mg HS ESME Administration Hydralazine HCl 25 mg 03/12/19 09:00 03/17/19 07:53 Apresoline PO 25 mg DAILY ESME Administration Ipratropium [place] 2.5 ml 03/12/19 01:00 03/17/19 13:20 Atrovent NEB 2.5 ml [id number] ESME Administration Melatonin 3 mg 03/15/19 20:41 03/16/19 20:51 Melatonin PO 3 mg HS PRN Administration Insomnia Metronidazole 500 mg 03/17/19 15:00 03/17/19 15:06 Flagyl PO 500 mg TID ESME Administration Morphine Sulfate 2 mg 03/16/19 19:31 03/16/19 20:52 Morphine SLOW IVP 2 mg Q8H PRN Administration Moderate to Severe Pain (6-10) Nortriptyline HCl 25 mg 03/12/19 21:00 03/16/19 20:51 Pamelor PO 25 mg HS ESME Administration Pantoprazole Sodium 40 mg 03/15/19 21:00 03/17/19 07:57 Protonix PO 40 mg BID ESME Administration Phenol 1 ml 03/12/19 12:23 03/16/19 17:39 Chloraseptic [place] 180 Ml Bot PO 2 spr BIDPRN PRN Administration Sore Throat Raltegravir 400 mg 03/12/19 09:00 03/17/19 07:59 Isentress PO 400 mg BID ESME Administration Senna/Docusate Sodium 1 tab 03/15/19 21:00 03/17/19 09:00 Senokot S PO Not Given BID ESME Simvastatin 10 mg 03/12/19 21:00 03/16/19 20:52 Zocor PO 10 mg QPM ESME Administration Sodium Chloride 10 ml 03/11/19 21:00 03/17/19 08:02 Flush - Normal Saline IVF 10 ml Q12HR ESME Administration Sodium Chloride 10 ml 03/11/19 20:25 03/16/19 20:52 Flush - Normal Saline IVF 10 ml PRN PRN Administration Saline Flush Sodium Chloride 10 ml 03/11/19 22:11 03/14/19 07:58 Normal Saline Pf FS 10 ml PRN PRN Administration RECONSTITUTION Zidovudine 100 mg 03/12/19 09:00 03/17/19 15:06 Retrovir PO 100 mg TID ESME Administration - Exam Neck: negative: supple, symmetric, no JVD, no Thyromegaly, no lymphadenopathy, no carotid bruit, JVD Heart: negative: RRR, no murmur, no gallops, no rubs, normal peripheral pulses, irregular, diminshed peripheral pulses, murmur present, II/IV, III/IV Respiratory: negative: CTAB, no wheezes, no rales, no ronchi, normal chest expansion, no tachypnea, normal percussion, rales, rhonchi, tachypneic, wheezes Hosp A/P (1) SBO (small bowel obstruction) Code(s): K56.609 - UNSP INTESTNL OBST, UNSP TO PARTIAL VERSUS COMPLETE OBST Status: Acute (2) C. difficile colitis Code(s): A04.72 - ENTEROCOLITIS D/T CLOSTRIDIUM DIFFICILE, NOT SPCF RECUR Status: Acute (3) GI bleed Code(s): K92.2 - GASTROINTESTINAL HEMORRHAGE, UNSPECIFIED Status: Acute (4) DM (diabetes mellitus) Code(s): E11.9 - TYPE 2 DIABETES MELLITUS WITHOUT COMPLICATIONS Status: Chronic (5) ESRD (end stage renal disease) on dialysis Code(s): N18.6 - END STAGE RENAL DISEASE; Z99.2 - DEPENDENCE ON RENAL DIALYSIS Status: Chronic - Plan will monitor hh, pt is having diarrhea. will continue current abx for cdiff and add flagyl. will discontinue reglan. pt will go to inpatient rehab
[2019-03-17] MEDS: Sodium Chloride 0.9% 500 ML IV SCH (17:52)
[2019-03-17] MEDS ORDERED: Temazepam 15 MG CAP PO PRN (19:25)
[2019-03-17] MEDS ORDERED: Saccharomyces boulardii 250 MG CAP PO SCH (20:00)
[2019-03-17] MEDS: Simvastatin 5 MG TAB PO SCH (20:50)
[2019-03-17] MEDS: Melatonin 3 MG TAB PO PRN (20:50)
[2019-03-17] MEDS: Morphine 2 MG/ML SYRINGE SLOW IVP PRN (20:51)
[2019-03-17] MEDS: Nortriptyline HCl 25 MG CAP PO SCH (20:51)
[2019-03-17] MEDS: Gabapentin 300 MG CAP PO SCH (20:51)
[2019-03-18] MEDS: Sodium Chloride 0.9% 500 ML IV SCH (04:11)
[2019-03-18] MEDS: Ipratropium Bromide 2.5 ml Neb NEB SCH ×4 (08:34→23:14)
[2019-03-18] MEDS: Cyanocobalamin (Vitamin B-12) 1,000 MCG TAB PO SCH (09:15)
[2019-03-18] MEDS: Raltegravir Potassium 400 MG TAB PO SCH ×2 (09:15→20:33)
[2019-03-18] MEDS: Fidaxomicin 200 MG TAB PO SCH ×2 (09:15→20:54)
[2019-03-18] MEDS: metroNIDAZOLE 500 MG TAB PO SCH ×3 (09:15→20:31)
[2019-03-18] MEDS: hydrALAZINE 25 MG TAB PO SCH (09:15)
[2019-03-18] MEDS: Saccharomyces boulardii 250 MG CAP PO SCH (09:16)
[2019-03-18] MEDS: Carvedilol 3.125 MG TAB PO SCH ×2 (09:16→20:32)
[2019-03-18] MEDS: Senokot S 8.6-50 MG TAB PO SCH ×2 (09:16→20:32)
[2019-03-18] MEDS: Folic Acid 1 MG TAB PO SCH (09:16)
[2019-03-18] MEDS: Fluticasone Propionate Nasal Spray 16 gm Bottle NASAL SCH (09:16)
[2019-03-18 09:44] LABS: #Eosinphils 0.1 thou/uL (0.0-0.7); #Lymphocytes 1.2 thou/uL (1.20-3.40); #Monocytes 0.5 thou/uL (0.11-0.59); #Neutrophils 6.1 thou/uL (1.40-6.50); %Basophils 0.2 % (0.0-1.0); %Eosinophils 1.9 % (0.0-10.0); %Monocytes 6.7 % (0.0-10.0); %Neutrophils 76.3 % (42.0-75.0); Hemoglobin 7.2 g/dL (14.0-18.0); Mean Corpuscular HGB CONC 32.6 g/dL (32.0-36.0); Mean Platelet Volume 7.3 fL (7.4-10.4); Platelet Count 212 thou/uL (130-400); RBC Distribution Width 18.2 % (11.5-14.5); Red Blood Cell (RBC) Count 2.12 mill/uL (4.70-6.10); White Blood Cell (WBC) Count 7.9 thou/uL (4.8-10.8)
[2019-03-18 10:00] LABS: Anion Gap 14 mmol/L (10-20); BUN (Urea Nitrogen) 54 mg/dL (8.4-25.7); Calc. Creatinine Clearance 25 mL/min (70-130); Calcium 8.4 mg/dL (7.8-10.44); Carbon Dioxide 26 mmol/L (23-31); Chloride 97 mmol/L (98-107); Estimated GFR-MDRD 19; Glucose 80 mg/dL (80-115); Potassium 4.2 mmol/L (3.5-5.1); Sodium 133 mmol/L (136-145)
--- NOTE | 2019-03-18 15:10 | PDOC.HOSPP ---
- Subjective Subjective: pt up in bed is scared to eat since he does not want to have diarrhea. i explained to him that will not be the case. - Objective Vital Signs & Weight: Vital Signs (12 hours) Temp Pulse Resp BP Pulse Ox 03/18/19 11:44 82 18 95 03/18/19 09:15 88 03/18/19 08:00 98.8 F 88 22 H 125/82 94 L Weight Admit Weight 193 lb 14.4 oz Weight 193 lb 14.4 oz I&O: 03/17/19 03/18/19 03/19/19 06:59 06:59 06:59 Intake Total 4381 2350 800 Output Total 0 Balance 4381 2350 800 Result Diagrams: 03/18/19 09:26 03/18/19 09:26 ROS - Review of Systems All systems: All other ROS were reviewed and found negative. Respiratory: denies: cough, dry, shortness of breath, hemoptysis, SOB with excertion, pleuritic pain, sputum, wheezing, other Cardiovascular: denies: chest pain, palpitations, orthopnea, paroxysmal noc. dyspnea, edema, light headedness, other Gastrointestinal: denies: nausea, vomitting, abdominal pain, diarrhea, constipation, melena, hematochezia, other - Medication Medications: Active Medications Generic Name Dose Route Start Last Admin Trade Name Clarisse PRN Reason Stop Dose Admin Carvedilol 3.125 mg 03/12/19 09:00 03/18/19 09:16 Coreg PO 3.125 mg BID ESME Administration Cyanocobalamin 1,000 mcg 03/12/19 09:00 03/18/19 09:15 Vitamin B-12 PO 1,000 mcg DAILY ESME Administration Epoetin Elder-epbx 7,500 unit 03/12/19 09:00 03/16/19 17:38 Retacrit IVP 7,500 unit TuThSa ESME Administration Etravirine 200 mg 03/12/19 08:00 03/18/19 09:15 Intelence PO 200 mg BID-PC ESME Administration Fidaxomicin 200 mg 03/14/19 21:00 03/18/19 09:15 Dificid PO 200 mg BID ESME Administration Fluticasone Propionate 0 gm 03/12/19 09:00 03/18/19 09:16 Flonase Nasal [place] NASAL 1 spr DAILY ESME Administration Folic Acid 1 mg 03/12/19 09:00 03/18/19 09:16 Folvite PO 1 mg DAILY ESME Administration Gabapentin 300 mg 03/12/19 21:00 03/17/19 20:51 Neurontin PO 300 mg HS ESME Administration Hydralazine HCl 25 mg 03/12/19 09:00 03/18/19 09:15 Apresoline PO 25 mg DAILY ESME Administration Ipratropium [place] 2.5 ml 03/12/19 01:00 03/18/19 11:44 Atrovent NEB 2.5 ml [id number] ESME Administration Melatonin 6 mg 03/17/19 19:25 03/17/19 20:50 Melatonin PO 6 mg HSPRN PRN Administration Insomnia Metronidazole 500 mg 03/17/19 15:00 03/18/19 09:15 Flagyl PO 500 mg TID ESME Administration Nortriptyline HCl 25 mg 03/12/19 21:00 03/17/19 20:51 Pamelor PO 25 mg HS ESME Administration Pantoprazole Sodium 40 mg 03/15/19 21:00 03/18/19 09:16 Protonix PO 40 mg BID ESME Administration Phenol 1 ml 03/12/19 12:23 03/16/19 17:39 Chloraseptic [place] 180 Ml Bot PO 2 spr BIDPRN PRN Administration Sore Throat Raltegravir 400 mg 03/12/19 09:00 03/18/19 09:15 Isentress PO 400 mg BID ESME Administration Saccharomyces Boulardii 250 mg 03/18/19 09:00 03/18/19 09:16 Florastor PO 250 mg DAILY ESME Administration Senna/Docusate Sodium 1 tab 03/15/19 21:00 03/18/19 09:16 Senokot S PO Not Given BID ESME Simvastatin 10 mg 03/12/19 21:00 03/17/19 20:50 Zocor PO 10 mg QPM ESME Administration Sodium Chloride 10 ml 03/11/19 21:00 03/18/19 09:16 Flush - Normal Saline IVF 10 ml Q12HR ESME Administration Sodium Chloride 10 ml 03/11/19 20:25 03/16/19 20:52 Flush - Normal Saline IVF 10 ml PRN PRN Administration Saline Flush Sodium Chloride 10 ml 03/11/19 22:11 03/14/19 07:58 Normal Saline Pf FS 10 ml PRN PRN Administration RECONSTITUTION Zidovudine 100 mg 03/12/19 09:00 03/18/19 09:15 Retrovir PO 100 mg TID ESME Administration - Exam Heart: negative: RRR, no murmur, no gallops, no rubs, normal peripheral pulses, irregular, diminshed peripheral pulses, murmur present, II/IV, III/IV Respiratory: negative: CTAB, no wheezes, no rales, no ronchi, normal chest expansion, no tachypnea, normal percussion, rales, rhonchi, tachypneic, wheezes Gastrointestinal: negative: soft, non-tender, non-distended, normal bowel sounds , no palpable masses, no hepatomegaly, no splenomegaly, no bruit, tender to palpation, distended, diminished bowl sounds, voluntary guarding Hosp A/P (1) SBO (small bowel obstruction) Code(s): K56.609 - UNSP INTESTNL OBST, UNSP TO PARTIAL VERSUS COMPLETE OBST Status: Acute (2) C. difficile colitis Code(s): A04.72 - ENTEROCOLITIS D/T CLOSTRIDIUM DIFFICILE, NOT SPCF RECUR Status: Acute (3) GI bleed Code(s): K92.2 - GASTROINTESTINAL HEMORRHAGE, UNSPECIFIED Status: Acute (4) DM (diabetes mellitus) Code(s): E11.9 - TYPE 2 DIABETES MELLITUS WITHOUT COMPLICATIONS Status: Chronic (5) ESRD (end stage renal disease) on dialysis Code(s): N18.6 - END STAGE RENAL DISEASE; Z99.2 - DEPENDENCE ON RENAL DIALYSIS Status: Chronic - Plan will continue meds for cdiff. pt's reglan has been discontinued. pt waiting to go to rehab. hh is stable.
[2019-03-18] MEDS: Acetaminophen/Codeine 30-300mg Tablet PO PRN (15:24)
[2019-03-18] MEDS: Gabapentin 300 MG CAP PO SCH (20:31)
[2019-03-18] MEDS: Nortriptyline HCl 25 MG CAP PO SCH (20:31)
[2019-03-18] MEDS: Simvastatin 5 MG TAB PO SCH (20:34)
[2019-03-18] MEDS ORDERED: Clopidogrel Bisulfate 75 MG TAB ONE (20:47)
[2019-03-18] MEDS: Melatonin 3 MG TAB PO PRN (23:22)
--- NOTE | 2019-03-18 23:49 | PRG ---
DATE OF SERVICE: 03/18/2019 SUBJECTIVE: The patient was seen and examined with no new complaint. Noted with the following vital signs. OBJECTIVE: VITAL SIGNS: Afebrile, temperature 99.2, pulse 89, respiratory rate of 16, O2 saturations 98%, and blood pressure 129/84. HEENT: Unremarkable. CARDIOVASCULAR SYSTEM: First and second heart sounds were heard. RESPIRATORY: Clear to auscultation. DIGESTIVE SYSTEM: Revealed a benign abdomen with positive bowel sounds. EXTREMITIES: No peripheral edema. SKIN: No new gross rash. LYMPHATICS: No peripheral lymphadenopathy. IMPRESSION: 1. End-stage renal disease, hemodialysis dependent. 2. Anemia, status post blood transfusion. PLAN: 1. We will continue with patient's dialysis . 2. Further management to be dependent on the clinical course. Job ID: [id number]
[2019-03-19] MEDS: Acetaminophen/Codeine 30-300mg Tablet PO PRN ×2 (01:16→11:59)
[2019-03-19] MEDS: Ipratropium Bromide 2.5 ml Neb NEB SCH ×3 (07:49→18:36)
--- NOTE | 2019-03-19 10:24 | PQF ---
[employer] Crystal Reports [facility] WINSTON Hollins, ARMIDA Castelan MD [id number] [id number] CLINICAL DOCUMENTATION IMPROVEMENT CLARIFICATION FORM: ICD-10 Updated PLEASE DO AN ADDENDUM TO THE PROGRESS NOTE WITH ANY DOCUMENTATION UPDATES OR ADDITIONS AND CARRY THROUGH TO DC SUMMARY. THANK YOU. DATE: 03-19-19 ATTN: DR. MAJANO Please exercise your independent, professional judgment in responding to the clarification form. Clinical indicators are provided on the bottom of this form for your review Please check appropriate box(s): [ ] Small Bowel Obstruction likely due to [ ] Gastric Outlet Obstruction likely due to [ ] Gastroparesis [ ] Other diagnosis [x ] Unable to determine For continuity of documentation, please document condition throughout progress notes and discharge summary. Thank You. CLINICAL INDICATORS - SIGNS / SYMPTOMS / LABS * 03-12 CT ABD PELVIS: INDICATES MECHANICAL OBSTRUCTION, R;/T MID GUT VOLVULUS * 03-12 (KEVIN): GI BLEED FROM GASTRITIS AND FRIABLE EDEMATOUS MUCOSA NOTED BY RECENT ENDOSCOPY 10 DAYS AGO - CT SCAN SHOWED SOME EVIDENCE OF VOLVULUS. * 03-12 (PONJOSE M): GASTRIC OUTLET OBSTRUCTION, LIKELY SECONDARY TO RADIATION INDUCED ADHESIONS VS GASTROPARESIS * 03-13 (Kevin): SBFT - un-obstructive flow - suspect gastroparesis, which likely caused worsening of his gastritis and could even cause some ischemic ulceration of the gastric mucosa. * 03-13 (Ohaju) gastric outlet obstruction vs gastroparesis * 03-13 (Ezeanuna): anemia, s/p bld transfusion * 03-13 (Ponzio): resolved gastric outlet obstruction vs gastroparesis * (Bhimji): SBO; C-Diff; GI Bleed; * 03-14 (Lisa): resolved gastric outlet obstruction vs gastroparesis * 03-14 (Kevin): gastric outlet obstruction vs gastroparesis; recent C-diff during last hospital stay - he remains on treatment for this; GI Bleed w/ acute bld loss anemia. EGD on previous hospitalization showed diffuse gastritis. This could have some ischemic ulceration r/t that significant mucosal distention. * 8-2 (Kevin): gastric dysmotility and presentation w/ gastric outlet obstruction - resolved RISK FACTORS * H&P (O'Augusto): last admission - EGD - found severe gastritis in the fundus, very hyperemic and had friable mucosa - C-Diff * 03-12 CT ABD PELVIS: INDICATES MECHANICAL OBSTRUCTION, R;/T MID GUT VOLVULUS * 03-12 (KEVIN): GI BLEED FROM GASTRITIS AND FRIABLE EDEMATOUS MUCOSA NOTED BY RECENT ENDOSCOPY 10 DAYS AGO - CT SCAN SHOWED SOME EVIDENCE OF VOLVULUS. * 03-12 (MARCELINO): GASTRIC OUTLET OBSTRUCTION, LIKELY SECONDARY TO RADIATION INDUCED ADHESIONS VS GASTROPARESIS * 8-1 (Kevin): gastric outlet obstruction vs gastroparesis; recent C-diff during last hospital stay - he remains on treatment for this; GI Bleed w/ acute bld loss anemia. EGD on previous hospitalization showed diffuse gastritis. This could have some ischemic ulceration r/t that significant mucosal distention. TREATMENTS: GI consult (Kevin) 03-12 Surgery consult (Ohjude) 03-12 ABD/Pelvis CT 03-12 INDICATES MECHANICAL OBSTRUCTION, R;/T MID GUT VOLVULUS SBFT 03-13 - no evidence of high grade obstruction 8-1 (Kevin): continue proton pump inhibitor; back off Metoclopramide; see how he continues to tolerate solid diet - fiber restricted diet Thank you, Rola (This form is maintained as a part of the permanent medical record) 2014 [employer]. All Rights Reserved Rola Perez RN, BS [email or web address] Cell [facility]
[2019-03-19] MEDS: Cyanocobalamin (Vitamin B-12) 1,000 MCG TAB PO SCH (11:57)
[2019-03-19] MEDS: Carvedilol 3.125 MG TAB PO SCH ×2 (11:57→20:26)
[2019-03-19] MEDS: Fidaxomicin 200 MG TAB PO SCH ×2 (11:57→20:25)
[2019-03-19] MEDS: metroNIDAZOLE 500 MG TAB PO SCH ×3 (11:57→20:26)
[2019-03-19] MEDS: Saccharomyces boulardii 250 MG CAP PO SCH (11:58)
[2019-03-19] MEDS: Folic Acid 1 MG TAB PO SCH (11:58)
[2019-03-19] MEDS: hydrALAZINE 25 MG TAB PO SCH (11:58)
[2019-03-19] MEDS: EPOETIN ALFA-EPBX (ESRD) 4,000 UNIT/ML VIAL IVP SCH (11:59)
[2019-03-19] MEDS: Senokot S 8.6-50 MG TAB PO SCH (12:01)
[2019-03-19] MEDS: Raltegravir Potassium 400 MG TAB PO SCH ×2 (12:01→20:26)
[2019-03-19] MEDS: Fluticasone Propionate Nasal Spray 16 gm Bottle NASAL SCH (12:01)
[2019-03-19] MEDS: diphenhydrAMINE 25 MG CAP PO PRN (17:52)
--- NOTE | 2019-03-19 20:23 | PDOC.HOSPP ---
- Subjective Subjective: Doing ok. No specific complaints. Would like have a Associate Scientist come and cut his toenails. No BM since yesterday. - Objective Vital Signs & Weight: Vital Signs (12 hours) Pulse Resp Pulse Ox 03/19/19 18:36 85 18 96 03/19/19 13:42 89 16 98 03/19/19 11:58 77 Weight Admit Weight 193 lb 14.4 oz Weight 193 lb 14.4 oz I&O: 03/18/19 03/19/19 03/20/19 06:59 06:59 06:59 Intake Total 2350 2900 1600 Output Total 0 1401 Balance 2350 2900 199 Result Diagrams: 03/18/19 09:26 03/18/19 09:26 ROS - Review of Systems All systems: All other ROS were reviewed and found negative. - Medication Medications: Active Medications Generic Name Dose Route Start Last Admin Trade Name Freq PRN Reason Stop Dose Admin Acetaminophen/Codeine Phosphate 1 tab 03/17/19 19:26 03/19/19 11:59 Tylenol #3 PO 1 tab Q6H PRN Administration Moderate Pain (4-6) Carvedilol 3.125 mg 03/12/19 09:00 03/19/19 11:57 Coreg PO 3.125 mg BID ESME Administration Cyanocobalamin 1,000 mcg 03/12/19 09:00 03/19/19 11:57 Vitamin B-12 PO 1,000 mcg DAILY ESME Administration Diphenhydramine HCl 25 mg 03/19/19 17:38 03/19/19 17:52 Benadryl PO 25 mg Q6H PRN Administration Itching & Insomnia Epoetin Elder-epbx 7,500 unit 03/12/19 09:00 03/19/19 11:59 Retacrit IVP 7,500 unit TuThSa ESME Administration Etravirine 200 mg 03/12/19 08:00 03/19/19 16:47 Intelence PO 200 mg BID-PC ESME Administration Fidaxomicin 200 mg 03/14/19 21:00 03/19/19 11:57 Dificid PO 200 mg BID ESME Administration Fluticasone Propionate 0 gm 03/12/19 09:00 03/19/19 12:01 Flonase Nasal [place] NASAL 1 spr DAILY ESME Administration Folic Acid 1 mg 03/12/19 09:00 03/19/19 11:58 Folvite PO 1 mg DAILY ESME Administration Gabapentin 300 mg 03/12/19 21:00 03/18/19 20:31 Neurontin PO 300 mg HS ESME Administration Hydralazine HCl 25 mg 03/12/19 09:00 03/19/19 11:58 Apresoline PO 25 mg DAILY ESME Administration Ipratropium [place] 2.5 ml 03/12/19 01:00 03/19/19 18:36 Atrovent NEB 2.5 ml [id number] ESME Administration Melatonin 6 mg 03/17/19 19:25 03/18/19 23:22 Melatonin PO 6 mg HSPRN PRN Administration Insomnia Metronidazole 500 mg 03/17/19 15:00 03/19/19 16:47 Flagyl PO 500 mg TID ESME Administration Nortriptyline HCl 25 mg 03/12/19 21:00 03/18/19 20:31 Pamelor PO 25 mg HS ESME Administration Pantoprazole Sodium 40 mg 03/15/19 21:00 03/19/19 11:58 Protonix PO 40 mg BID ESME Administration Phenol 1 ml 03/12/19 12:23 03/16/19 17:39 Chloraseptic [place] 180 Ml Bot PO 2 spr BIDPRN PRN Administration Sore Throat Raltegravir 400 mg 03/12/19 09:00 03/19/19 12:01 Isentress PO 400 mg BID ESME Administration Saccharomyces Boulardii 250 mg 03/18/19 09:00 03/19/19 11:58 Florastor PO 250 mg DAILY ESME Administration Simvastatin 10 mg 03/12/19 21:00 03/18/19 20:34 Zocor PO 10 mg QPM ESME Administration Sodium Chloride 10 ml 03/11/19 21:00 03/19/19 12:01 Flush - Normal Saline IVF 10 ml Q12HR ESME Administration Sodium Chloride 10 ml 03/11/19 20:25 03/16/19 20:52 Flush - Normal Saline IVF 10 ml PRN PRN Administration Saline Flush Sodium Chloride 10 ml 03/11/19 22:11 03/14/19 07:58 Normal Saline Pf FS 10 ml PRN PRN Administration RECONSTITUTION Zidovudine 100 mg 03/12/19 09:00 03/19/19 16:47 Retrovir PO 100 mg TID ESME Administration - Exam NAD Heart: RRR, no murmur, II/IV Respiratory: CTAB, no wheezes, no rales, no ronchi, normal chest expansion, no tachypnea, normal percussion Gastrointestinal: soft, non-tender, non-distended, normal bowel sounds, no palpable masses, no hepatomegaly, no splenomegaly, no bruit Extremities: no edema (Left AKA) Neurological: CN's grossly intact, no focal deficits Psychiatric: normal affect, normal behavior, A&O x 3 Hosp A/P (1) SBO (small bowel obstruction) Code(s): K56.609 - UNSP INTESTNL OBST, UNSP TO PARTIAL VERSUS COMPLETE OBST Status: Resolved (2) C. difficile colitis Code(s): A04.72 - ENTEROCOLITIS D/T CLOSTRIDIUM DIFFICILE, NOT SPCF RECUR Status: Acute Plan: Continue treatment with dificid for total of 14 days. Stop stool softener. (3) Chronic pain Code(s): G89.29 - OTHER CHRONIC PAIN Status: Chronic (4) DM (diabetes mellitus) Code(s): E11.9 - TYPE 2 DIABETES MELLITUS WITHOUT COMPLICATIONS Status: Chronic (5) ESRD (end stage renal disease) on dialysis Code(s): N18.6 - END STAGE RENAL DISEASE; Z99.2 - DEPENDENCE ON RENAL DIALYSIS Status: Chronic Plan: Continue HD. (6) HIV (human immunodeficiency virus infection) Code(s): B20 - HUMAN IMMUNODEFICIENCY VIRUS [HIV] DISEASE Status: Chronic (7) HTN (hypertension) Code(s): I10 - ESSENTIAL (PRIMARY) HYPERTENSION Status: Chronic Qualifiers: Hypertension type: essential hypertension Qualified Code(s): I10 - Essential (primary) hypertension (8) IVONNE on CPAP Code(s): G47.33 - OBSTRUCTIVE SLEEP APNEA (ADULT) (PEDIATRIC); Z99.89 - DEPENDENCE ON OTHER ENABLING MACHINES AND DEVICES Status: Chronic - Plan Stable for DC. [facility]. Subsequent to initial visit, he complained of itching. Benadryl ordered.
[2019-03-19] MEDS: Nortriptyline HCl 25 MG CAP PO SCH (20:24)
[2019-03-19] MEDS: Gabapentin 300 MG CAP PO SCH (20:26)
[2019-03-19] MEDS: Simvastatin 5 MG TAB PO SCH (20:26)
[2019-03-19] MEDS: Melatonin 3 MG TAB PO PRN (20:42)
--- NOTE | 2019-03-19 20:55 | PRG ---
DATE OF SERVICE: 03/19/2019 OBJECTIVE: VITAL SIGNS: The patient noted with the following vital signs, afebrile, blood pressure 139/79. HEENT: Unremarkable. CARDIOVASCULAR: First and second heart sounds were heard. RESPIRATORY: Clear to auscultation. DIGESTIVE SYSTEM: Benign abdomen. EXTREMITIES: No peripheral edema. SKIN: No new gross rash. LYMPHATICS: No peripheral lymphadenopathy. IMPRESSION: 1. End-stage renal disease, hemodialysis dependent. 2. Anemia, status post blood transfusions. PLAN: 1. The patient to continue with hemodialysis. The patient due for dialysis today. Did undergo hemodialysis. 2. Further management to be dependent on the clinical course. Job ID: [id number]
[2019-03-20] MEDS: Ipratropium Bromide 2.5 ml Neb NEB SCH ×3 (00:24→13:27)
[2019-03-20] MEDS: diphenhydrAMINE 25 MG CAP PO PRN ×2 (00:51→20:53)
[2019-03-20] MEDS: Fidaxomicin 200 MG TAB PO SCH ×2 (08:02→20:53)
[2019-03-20] MEDS: Saccharomyces boulardii 250 MG CAP PO SCH (08:02)
[2019-03-20] MEDS: metroNIDAZOLE 500 MG TAB PO SCH ×3 (08:02→20:53)
[2019-03-20] MEDS: Carvedilol 3.125 MG TAB PO SCH ×2 (08:02→20:53)
[2019-03-20] MEDS: hydrALAZINE 25 MG TAB PO SCH (08:02)
[2019-03-20] MEDS: Folic Acid 1 MG TAB PO SCH (08:03)
[2019-03-20] MEDS: Cyanocobalamin (Vitamin B-12) 1,000 MCG TAB PO SCH (08:03)
[2019-03-20] MEDS: Fluticasone Propionate Nasal Spray 16 gm Bottle NASAL SCH (08:06)
[2019-03-20] MEDS: Raltegravir Potassium 400 MG TAB PO SCH ×2 (08:09→20:54)
[2019-03-20] MEDS ORDERED: Hydrocortisone 1% Cream 30 GM TUBE TOP PRN (10:26)
[2019-03-20] MEDS ORDERED: PROVENTIL INHALER 6.7 G (200 INHALATIONS) INH PRN (14:10)
--- NOTE | 2019-03-20 19:14 | PRG ---
DATE OF SERVICE: 03/20/2019 OBJECTIVE: VITAL SIGNS: The patient was noted with the following vital signs; afebrile, temperature 98.5, pulse 78, respiratory rate of 17, O2 saturation of 92%, blood pressure 132/85. HEENT: Unremarkable. CARDIOVASCULAR: First and second heart sounds were heard. RESPIRATORY: Clear to auscultation. DIGESTIVE SYSTEM: Revealed a benign abdomen. EXTREMITIES: No peripheral edema. SKIN: No new gross rash. LYMPHATICS: No peripheral lymphadenopathy. IMPRESSION: 1. End-stage renal disease, hemodialysis dependent. 2. Anemia, status post blood transfusion. PLAN: 1. The patient to continue hemodialysis per schedule. 2. Awaiting placement. Job ID: [id number]
[2019-03-20] MEDS: Acetaminophen/Codeine 30-300mg Tablet PO PRN (20:52)
[2019-03-20] MEDS: Simvastatin 5 MG TAB PO SCH (20:53)
[2019-03-20] MEDS: Gabapentin 300 MG CAP PO SCH (20:53)
[2019-03-20] MEDS: Nortriptyline HCl 25 MG CAP PO SCH (20:53)
--- NOTE | 2019-03-20 22:33 | PDOC.HOSPP ---
- Subjective Subjective: Doing well overall. Complaints of itching. Mostly on his back. - Objective Vital Signs & Weight: Vital Signs (12 hours) Temp Pulse Resp BP Pulse Ox 03/20/19 20:00 98.6 F 84 20 112/76 96 Weight Admit Weight 193 lb 14.4 oz Weight 193 lb 14.4 oz I&O: 03/19/19 03/20/19 03/21/19 06:59 06:59 06:59 Intake Total 2900 2350 1370 Output Total 1402 Balance 2900 948 1370 Result Diagrams: 03/18/19 09:26 03/18/19 09:26 ROS - Medication Medications: Active Medications Generic Name Dose Route Start Last Admin Trade Name Freq PRN Reason Stop Dose Admin Acetaminophen/Codeine Phosphate 1 tab 03/17/19 19:26 03/20/19 20:52 Tylenol #3 PO 1 tab Q6H PRN Administration Moderate Pain (4-6) Carvedilol 3.125 mg 03/12/19 09:00 03/20/19 20:53 Coreg PO 3.125 mg BID ESME Administration Cyanocobalamin 1,000 mcg 03/12/19 09:00 03/20/19 08:03 Vitamin B-12 PO 1,000 mcg DAILY ESME Administration Diphenhydramine HCl 25 mg 03/19/19 17:38 03/20/19 20:53 Benadryl PO 25 mg Q6H PRN Administration Itching & Insomnia Epoetin Elder-epbx 7,500 unit 03/12/19 09:00 03/19/19 11:59 Retacrit IVP 7,500 unit TuThSa ESME Administration Etravirine 200 mg 03/12/19 08:00 03/20/19 17:53 Intelence PO 200 mg BID-PC ESME Administration Fidaxomicin 200 mg 03/14/19 21:00 03/20/19 20:53 Dificid PO 200 mg BID ESME Administration Fluticasone Propionate 0 gm 03/12/19 09:00 03/20/19 08:06 Flonase Nasal [place] NASAL 2 spr DAILY ESME Administration Folic Acid 1 mg 03/12/19 09:00 03/20/19 08:03 Folvite PO 1 mg DAILY ESME Administration Gabapentin 300 mg 03/12/19 21:00 03/20/19 20:53 Neurontin PO 300 mg HS ESME Administration Hydralazine HCl 25 mg 03/12/19 09:00 03/20/19 08:02 Apresoline PO 25 mg DAILY ESME Administration Melatonin 6 mg 03/17/19 19:25 03/19/19 20:42 Melatonin PO 6 mg HSPRN PRN Administration Insomnia Metronidazole 500 mg 03/17/19 15:00 03/20/19 20:53 Flagyl PO 500 mg TID ESME Administration Nortriptyline HCl 25 mg 03/12/19 21:00 03/20/19 20:53 Pamelor PO 25 mg HS ESME Administration Pantoprazole Sodium 40 mg 03/15/19 21:00 03/20/19 20:53 Protonix PO 40 mg BID ESME Administration Phenol 1 ml 03/12/19 12:23 03/16/19 17:39 Chloraseptic [place] 180 Ml Bot PO 2 spr BIDPRN PRN Administration Sore Throat Raltegravir 400 mg 03/12/19 09:00 03/20/19 20:54 Isentress PO 400 mg BID ESME Administration Saccharomyces Boulardii 250 mg 03/18/19 09:00 03/20/19 08:02 Florastor PO 250 mg DAILY ESME Administration Simvastatin 10 mg 03/12/19 21:00 03/20/19 20:53 Zocor PO 10 mg QPM ESME Administration Sodium Chloride 10 ml 03/11/19 21:00 03/20/19 20:54 Flush - Normal Saline IVF 10 ml Q12HR ESME Administration Sodium Chloride 10 ml 03/11/19 20:25 03/16/19 20:52 Flush - Normal Saline IVF 10 ml PRN PRN Administration Saline Flush Sodium Chloride 10 ml 03/11/19 22:11 03/14/19 07:58 Normal Saline Pf FS 10 ml PRN PRN Administration RECONSTITUTION Zidovudine 100 mg 03/12/19 09:00 03/20/19 20:52 Retrovir PO 100 mg TID ESME Administration - Exam NAD, awake alert ENT: normocephalic atraumatic, no oropharyngeal lesions, moist mucosa Neck: supple, symmetric, no JVD, no thyromegaly, no lymphadenopathy, no carotid bruit Heart: RRR, II/IV Respiratory: CTAB, no wheezes, no rales, no ronchi, normal chest expansion, no tachypnea, normal percussion Gastrointestinal: soft, non-tender, non-distended, normal bowel sounds, no palpable masses, no hepatomegaly, no splenomegaly, no bruit Neurological: CN's grossly intact, normal sensation to touch, no weakness, no focal deficits, no new deficit Musculoskeletal: normal tone Musculoskeletal - other findings: Left AKA Psychiatric: normal affect, normal behavior, A&O x 3 Hosp A/P (1) SBO (small bowel obstruction) Code(s): K56.609 - UNSP INTESTNL OBST, UNSP TO PARTIAL VERSUS COMPLETE OBST Status: Resolved (2) C. difficile colitis Code(s): A04.72 - ENTEROCOLITIS D/T CLOSTRIDIUM DIFFICILE, NOT SPCF RECUR Status: Acute (3) Chronic pain Code(s): G89.29 - OTHER CHRONIC PAIN Status: Chronic (4) DM (diabetes mellitus) Code(s): E11.9 - TYPE 2 DIABETES MELLITUS WITHOUT COMPLICATIONS Status: Chronic (5) ESRD (end stage renal disease) on dialysis Code(s): N18.6 - END STAGE RENAL DISEASE; Z99.2 - DEPENDENCE ON RENAL DIALYSIS Status: Chronic (6) HIV (human immunodeficiency virus infection) Code(s): B20 - HUMAN IMMUNODEFICIENCY VIRUS [HIV] DISEASE Status: Chronic (7) HTN (hypertension) Code(s): I10 - ESSENTIAL (PRIMARY) HYPERTENSION Status: Chronic Qualifiers: Hypertension type: essential hypertension Qualified Code(s): I10 - Essential (primary) hypertension (8) IVONNE on CPAP Code(s): G47.33 - OBSTRUCTIVE SLEEP APNEA (ADULT) (PEDIATRIC); Z99.89 - DEPENDENCE ON OTHER ENABLING MACHINES AND DEVICES Status: Chronic (9) Pruritic condition Code(s): L29.9 - PRURITUS, UNSPECIFIED Status: Acute - Plan Medically stable. ABDI CM. Working processing paperwork to get approval for placement. Continue Benadryl. Helped initially. Add HCT cream to back as needed.
[2019-03-20] MEDS: Melatonin 3 MG TAB PO PRN (23:58)
[2019-03-21] MEDS: metroNIDAZOLE 500 MG TAB PO SCH ×3 (08:59→20:12)
[2019-03-21] MEDS: Folic Acid 1 MG TAB PO SCH (09:00)
[2019-03-21] MEDS: Saccharomyces boulardii 250 MG CAP PO SCH (09:00)
[2019-03-21] MEDS: Fidaxomicin 200 MG TAB PO SCH ×2 (09:00→20:11)
[2019-03-21] MEDS: Cyanocobalamin (Vitamin B-12) 1,000 MCG TAB PO SCH (09:00)
[2019-03-21] MEDS: Raltegravir Potassium 400 MG TAB PO SCH ×2 (09:02→20:11)
[2019-03-21] MEDS: hydrALAZINE 25 MG TAB PO SCH ×2 (09:03→15:34)
[2019-03-21] MEDS: Fluticasone Propionate Nasal Spray 16 gm Bottle NASAL SCH (09:04)
--- NOTE | 2019-03-21 09:39 | PRG ---
DATE OF SERVICE: 03/21/2019 SUBJECTIVE: The patient was seen and examined with no new complaints noted with the following vital signs. OBJECTIVE: VITAL SIGNS: Afebrile with temperature of 98.6, pulse 94, respiratory rate of 18, and O2 saturations of 98% to 96%, blood pressure 126/81. HEENT: Unremarkable. CARDIOVASCULAR SYSTEM: First and second heart sounds were heard. RESPIRATORY SYSTEM: Clear to auscultation. DIGESTIVE SYSTEM: A benign abdomen. Positive bowel sounds. EXTREMITIES: No peripheral edema. SKIN: No new gross rash. LYMPHATICS: No peripheral lymphadenopathy. IMPRESSION: 1. End-stage renal disease, hemodialysis dependent. 2. Anemia status post blood transfusions. PLAN: 1. The patient to be dialyzed today in accordance with the schedule. 2. Further management to be dependent on the clinical course. Job ID: [id number]
[2019-03-21 11:09] LABS: Hemoglobin 6.8 g/dL (14.0-18.0); Mean Corpuscular HGB CONC 33.6 g/dL (32.0-36.0); Mean Corpuscular Hemoglobin 35.1 pg (27.0-31.0); Mean Platelet Volume 7.4 fL (7.4-10.4); Platelet Count 178 thou/uL (130-400); RBC Distribution Width 18.5 % (11.5-14.5); Red Blood Cell (RBC) Count 1.94 mill/uL (4.70-6.10); White Blood Cell (WBC) Count 4.4 thou/uL (4.8-10.8)
[2019-03-21 11:20] LABS: Anion Gap 14 mmol/L (10-20); BUN (Urea Nitrogen) 59 mg/dL (8.4-25.7); Calc. Creatinine Clearance 22 mL/min (70-130); Calcium 7.9 mg/dL (7.8-10.44); Carbon Dioxide 25 mmol/L (23-31); Chloride 99 mmol/L (98-107); Estimated GFR-MDRD 17; Glucose 120 mg/dL (80-115); Potassium 4.4 mmol/L (3.5-5.1); Sodium 134 mmol/L (136-145)
[2019-03-21] MEDS: EPOETIN ALFA-EPBX (ESRD) 4,000 UNIT/ML VIAL IVP SCH (11:45)
[2019-03-21 12:05] LABS: #Eosinphils 0.1 thou/uL (0.0-0.7); #Monocytes 0.5 thou/uL (0.11-0.59); #Neutrophils 2.9 thou/uL (1.40-6.50); %Basophils 0.5 % (0.0-1.0); %Lymphocytes 22.4 % (21.0-51.0); %Monocytes 10.1 % (0.0-10.0); %Neutrophils 64.9 % (42.0-75.0)
[2019-03-21] MEDS ORDERED: Heparin 10,000 UNITS/1 ML VIAL ONE (15:00)
[2019-03-21] MEDS: Carvedilol 3.125 MG TAB PO SCH ×3 (15:32→20:11)
--- NOTE | 2019-03-21 17:31 | PDOC.HOSPP ---
- Subjective Subjective: Doing well today. No new complaints. itching is much improved. - Objective Vital Signs & Weight: Vital Signs (12 hours) Temp Pulse Resp BP BP BP Pulse Ox 03/21/19 15:40 99.0 F 88 16 152/91 H 98 03/21/19 15:34 88 152/91 H 03/21/19 09:03 94 126/81 03/21/19 08:00 98.6 F 94 18 126/81 90 L Weight Admit Weight 193 lb 14.4 oz Weight 193 lb 14.4 oz I&O: 03/20/19 03/21/19 03/22/19 06:59 06:59 06:59 Intake Total 2350 1969 200 Output Total 1402 Balance 948 1969 200 Result Diagrams: 03/21/19 10:00 03/21/19 10:00 ROS - Medication Medications: Active Medications Generic Name Dose Route Start Last Admin Trade Name Freq PRN Reason Stop Dose Admin Acetaminophen/Codeine Phosphate 1 tab 03/17/19 19:26 03/20/19 20:52 Tylenol #3 PO 1 tab Q6H PRN Administration Moderate Pain (4-6) Carvedilol 3.125 mg 03/12/19 09:00 03/21/19 15:32 Coreg PO 3.125 mg BID ESME Administration Cyanocobalamin 1,000 mcg 03/12/19 09:00 03/21/19 09:00 Vitamin B-12 PO 1,000 mcg DAILY ESME Administration Diphenhydramine HCl 25 mg 03/19/19 17:38 03/20/19 20:53 Benadryl PO 25 mg Q6H PRN Administration Itching & Insomnia Epoetin Elder-epbx 7,500 unit 03/12/19 09:00 03/21/19 11:45 Retacrit IVP 7,500 unit TuThSa ESME Administration Etravirine 200 mg 03/12/19 08:00 03/21/19 09:01 Intelence PO 200 mg BID-PC ESME Administration Fidaxomicin 200 mg 03/14/19 21:00 03/21/19 09:00 Dificid PO 200 mg BID ESME Administration Fluticasone Propionate 0 gm 03/12/19 09:00 03/21/19 09:04 Flonase Nasal [place] NASAL 1 spr DAILY ESME Administration Folic Acid 1 mg 03/12/19 09:00 03/21/19 09:00 Folvite PO 1 mg DAILY ESME Administration Gabapentin 300 mg 03/12/19 21:00 03/20/19 20:53 Neurontin PO 300 mg HS ESME Administration Hydralazine HCl 25 mg 03/12/19 09:00 03/21/19 15:34 Apresoline PO 25 mg DAILY ESME Administration Hydrocortisone/Aloe 1 gm 03/20/19 10:26 03/21/19 08:59 Hydrocortisone 1% Cream TOP 1 applic BID PRN Administration Itching Melatonin 6 mg 03/17/19 19:25 03/20/19 23:58 Melatonin PO 6 mg HSPRN PRN Administration Insomnia Metronidazole 500 mg 03/17/19 15:00 03/21/19 15:32 Flagyl PO 500 mg TID ESME Administration Nortriptyline HCl 25 mg 03/12/19 21:00 03/20/19 20:53 Pamelor PO 25 mg HS ESME Administration Pantoprazole Sodium 40 mg 03/15/19 21:00 03/21/19 09:00 Protonix PO 40 mg BID ESME Administration Phenol 1 ml 03/12/19 12:23 03/16/19 17:39 Chloraseptic [place] 180 Ml Bot PO 2 spr BIDPRN PRN Administration Sore Throat Raltegravir 400 mg 03/12/19 09:00 03/21/19 09:02 Isentress PO 400 mg BID ESME Administration Saccharomyces Boulardii 250 mg 03/18/19 09:00 03/21/19 09:00 Florastor PO 250 mg DAILY ESME Administration Simvastatin 10 mg 03/12/19 21:00 03/20/19 20:53 Zocor PO 10 mg QPM ESME Administration Sodium Chloride 10 ml 03/11/19 21:00 03/21/19 09:04 Flush - Normal Saline IVF 10 ml Q12HR ESME Administration Sodium Chloride 10 ml 03/11/19 20:25 03/16/19 20:52 Flush - Normal Saline IVF 10 ml PRN PRN Administration Saline Flush Sodium Chloride 10 ml 03/11/19 22:11 03/14/19 07:58 Normal Saline Pf FS 10 ml PRN PRN Administration RECONSTITUTION Zidovudine 100 mg 03/12/19 09:00 03/21/19 15:32 Retrovir PO 100 mg TID ESME Administration - Exam NAD, awake alert Neck: supple, symmetric, no JVD, no thyromegaly, no lymphadenopathy, no carotid bruit Heart: RRR, no gallops, no rubs, normal peripheral pulses, II/IV Respiratory: CTAB, no wheezes, no rales, no ronchi, normal chest expansion, no tachypnea, normal percussion Gastrointestinal: soft, non-tender, non-distended, normal bowel sounds, no palpable masses, no hepatomegaly, no splenomegaly, no bruit Extremeties - other findings: Left AKA Skin: normal turgor Neurological: CN's grossly intact, no focal deficits Musculoskeletal: normal tone Psychiatric: normal affect, normal behavior, A&O x 3 Hosp A/P (1) SBO (small bowel obstruction) Code(s): K56.609 - UNSP INTESTNL OBST, UNSP TO PARTIAL VERSUS COMPLETE OBST Status: Resolved (2) C. difficile colitis Code(s): A04.72 - ENTEROCOLITIS D/T CLOSTRIDIUM DIFFICILE, NOT SPCF RECUR Status: Acute (3) Chronic pain Code(s): G89.29 - OTHER CHRONIC PAIN Status: Chronic (4) DM (diabetes mellitus) Code(s): E11.9 - TYPE 2 DIABETES MELLITUS WITHOUT COMPLICATIONS Status: Chronic (5) ESRD (end stage renal disease) on dialysis Code(s): N18.6 - END STAGE RENAL DISEASE; Z99.2 - DEPENDENCE ON RENAL DIALYSIS Status: Chronic (6) HIV (human immunodeficiency virus infection) Code(s): B20 - HUMAN IMMUNODEFICIENCY VIRUS [HIV] DISEASE Status: Chronic (7) HTN (hypertension) Code(s): I10 - ESSENTIAL (PRIMARY) HYPERTENSION Status: Chronic Qualifiers: Hypertension type: essential hypertension Qualified Code(s): I10 - Essential (primary) hypertension (8) IVONNE on CPAP Code(s): G47.33 - OBSTRUCTIVE SLEEP APNEA (ADULT) (PEDIATRIC); Z99.89 - DEPENDENCE ON OTHER ENABLING MACHINES AND DEVICES Status: Chronic (9) Pruritic condition Code(s): L29.9 - PRURITUS, UNSPECIFIED Status: Acute (10) GI bleed Code(s): K92.2 - GASTROINTESTINAL HEMORRHAGE, UNSPECIFIED Status: Acute (11) Gastritis Code(s): K29.70 - GASTRITIS, UNSPECIFIED, WITHOUT BLEEDING Status: Acute (12) Anemia Code(s): D64.9 - ANEMIA, UNSPECIFIED Status: Chronic Qualifiers: Anemia type: other cause Other causes of anemia: chronic disease, other Qualified Code(s): D63.8 - Anemia in other chronic diseases classified elsewhere - Plan Medically stable. ABDI KELSEY. Working processing paperwork to get approval for placement. HCT working well for him. Had two units with HD today. Continue PPI. Continue Dificid.
[2019-03-21] MEDS: Nortriptyline HCl 25 MG CAP PO SCH (20:10)
[2019-03-21] MEDS: Simvastatin 5 MG TAB PO SCH (20:10)
[2019-03-21] MEDS: Gabapentin 300 MG CAP PO SCH (20:11)
[2019-03-21] MEDS: Acetaminophen/Codeine 30-300mg Tablet PO PRN (20:16)
[2019-03-22] MEDS: Saccharomyces boulardii 250 MG CAP PO SCH (08:18)
[2019-03-22] MEDS: Cyanocobalamin (Vitamin B-12) 1,000 MCG TAB PO SCH (08:18)
[2019-03-22] MEDS: hydrALAZINE 25 MG TAB PO SCH (08:19)
[2019-03-22] MEDS: Folic Acid 1 MG TAB PO SCH (08:19)
[2019-03-22] MEDS: Carvedilol 3.125 MG TAB PO SCH (08:20)
[2019-03-22] MEDS: Fluticasone Propionate Nasal Spray 16 gm Bottle NASAL SCH (08:21)
[2019-03-22] MEDS: Fidaxomicin 200 MG TAB PO SCH (08:21)
[2019-03-22] MEDS: metroNIDAZOLE 500 MG TAB PO SCH ×2 (08:21→14:08)
[2019-03-22] MEDS: Raltegravir Potassium 400 MG TAB PO SCH ×2 (09:59→19:17)
[2019-03-22 11:50] LABS: #Eosinphils 0.1 thou/uL (0.0-0.7); #Lymphocytes 1.2 thou/uL (1.20-3.40); #Monocytes 0.6 thou/uL (0.11-0.59); %Basophils 0.6 % (0.0-1.0); %Eosinophils 1.3 % (0.0-10.0); %Lymphocytes 23.5 % (21.0-51.0); %Monocytes 13.2 % (0.0-10.0); %Neutrophils 61.4 % (42.0-75.0); Hemoglobin 8.6 g/dL (14.0-18.0); Mean Corpuscular HGB CONC 33.6 g/dL (32.0-36.0); Mean Corpuscular Hemoglobin 34.1 pg (27.0-31.0); Mean Platelet Volume 6.9 fL (7.4-10.4); Platelet Count 168 thou/uL (130-400); RBC Distribution Width 18.1 % (11.5-14.5); Red Blood Cell (RBC) Count 2.53 mill/uL (4.70-6.10); White Blood Cell (WBC) Count 4.9 thou/uL (4.8-10.8)
--- NOTE | 2019-03-22 12:31 | PDOC.HOSPP ---
- Subjective Encounter Date: 03/22/19 Encounter Time: 11:45 Subjective: Doing well today. Feels better after the blood. Stool is now formed and brown. - Objective Vital Signs & Weight: Vital Signs (12 hours) Temp Pulse Resp BP BP BP Pulse Ox 03/22/19 08:24 99 F 91 16 138/90 93 L 03/22/19 08:21 93 L 03/22/19 08:19 92 138/90 03/22/19 04:19 98.7 F 89 18 134/78 97 Weight Admit Weight 193 lb 14.4 oz Weight 193 lb 14.4 oz I&O: 03/21/19 03/22/19 03/23/19 06:59 06:59 06:59 Intake Total 1969 930 Output Total 2800 Balance 1969 -1869 Result Diagrams: 03/22/19 11:42 03/21/19 10:00 ROS - Medication Medications: Active Medications Generic Name Dose Route Start Last Admin Trade Name Freq PRN Reason Stop Dose Admin Acetaminophen/Codeine Phosphate 1 tab 03/17/19 19:26 03/21/19 20:16 Tylenol #3 PO 1 tab Q6H PRN Administration Moderate Pain (4-6) Albuterol Sulfate 0 puff 03/20/19 14:10 03/21/19 22:38 Proventil Hfa INH 2 puff PRN PRN Administration SOB Carvedilol 3.125 mg 03/12/19 09:00 03/22/19 08:20 Coreg PO 3.125 mg BID ESME Administration Cyanocobalamin 1,000 mcg 03/12/19 09:00 03/22/19 08:18 Vitamin B-12 PO 1,000 mcg DAILY ESME Administration Diphenhydramine HCl 25 mg 03/19/19 17:38 03/20/19 20:53 Benadryl PO 25 mg Q6H PRN Administration Itching & Insomnia Epoetin Elder-epbx 7,500 unit 03/12/19 09:00 03/21/19 11:45 Retacrit IVP 7,500 unit TuThSa ESME Administration Etravirine 200 mg 03/12/19 08:00 03/22/19 08:18 Intelence PO 200 mg BID-PC ESME Administration Fidaxomicin 200 mg 03/14/19 21:00 08/09/19 08:21 Dificid PO 200 mg BID ESME Administration Fluticasone Propionate 0 gm 03/12/19 09:00 03/22/19 08:21 Flonase Nasal [place] NASAL 1 spr DAILY ESME Administration Folic Acid 1 mg 03/12/19 09:00 03/22/19 08:19 Folvite PO 1 mg DAILY ESME Administration Gabapentin 300 mg 03/12/19 21:00 03/21/19 20:11 Neurontin PO 300 mg HS ESME Administration Hydralazine HCl 25 mg 03/12/19 09:00 03/22/19 08:19 Apresoline PO 25 mg DAILY ESME Administration Hydrocortisone/Aloe 1 gm 03/20/19 10:26 03/21/19 08:59 Hydrocortisone 1% Cream TOP 1 applic BID PRN Administration Itching Melatonin 6 mg 03/17/19 19:25 03/20/19 23:58 Melatonin PO 6 mg HSPRN PRN Administration Insomnia Metronidazole 500 mg 03/17/19 15:00 03/22/19 08:21 Flagyl PO 500 mg TID ESME Administration Nortriptyline HCl 25 mg 03/12/19 21:00 03/21/19 20:10 Pamelor PO 25 mg HS ESME Administration Pantoprazole Sodium 40 mg 03/15/19 21:00 03/22/19 08:19 Protonix PO 40 mg BID ESME Administration Phenol 1 ml 03/12/19 12:23 03/16/19 17:39 Chloraseptic [place] 180 Ml Bot PO 2 spr BIDPRN PRN Administration Sore Throat Raltegravir 400 mg 03/12/19 09:00 03/22/19 09:59 Isentress PO 400 mg BID ESME Administration Saccharomyces Boulardii 250 mg 03/18/19 09:00 03/22/19 08:18 Florastor PO 250 mg DAILY ESME Administration Simvastatin 10 mg 03/12/19 21:00 03/21/19 20:10 Zocor PO 10 mg QPM ESME Administration Sodium Chloride 10 ml 03/11/19 21:00 03/22/19 08:21 Flush - Normal Saline IVF 10 ml Q12HR ESME Administration Sodium Chloride 10 ml 03/11/19 20:25 03/16/19 20:52 Flush - Normal Saline IVF 10 ml PRN PRN Administration Saline Flush Sodium Chloride 10 ml 03/11/19 22:11 03/14/19 07:58 Normal Saline Pf FS 10 ml PRN PRN Administration RECONSTITUTION Temazepam 15 mg 03/17/19 19:25 03/21/19 22:23 Restoril PO 15 mg HSPRN PRN Administration Insomnia Zidovudine 100 mg 03/12/19 09:00 03/22/19 08:18 Retrovir PO 100 mg TID ESEM Administration - Exam NAD, awake alert Neck: supple, symmetric, no JVD, no thyromegaly, no lymphadenopathy, no carotid bruit Heart: RRR, no gallops, no rubs, normal peripheral pulses, II/IV Respiratory - other findings: Left basilar rales. Gastrointestinal: soft, non-tender, non-distended, normal bowel sounds, no palpable masses, no hepatomegaly, no splenomegaly, no bruit Extremities: no cyanosis, no clubbing, no edema Extremeties - other findings: L AKA Skin: normal turgor Musculoskeletal: normal tone Psychiatric: normal affect, normal behavior, A&O x 3 Hosp A/P (1) SBO (small bowel obstruction) Code(s): K56.609 - UNSP INTESTNL OBST, UNSP TO PARTIAL VERSUS COMPLETE OBST Status: Resolved (2) C. difficile colitis Code(s): A04.72 - ENTEROCOLITIS D/T CLOSTRIDIUM DIFFICILE, NOT SPCF RECUR Status: Acute (3) Chronic pain Code(s): G89.29 - OTHER CHRONIC PAIN Status: Chronic (4) DM (diabetes mellitus) Code(s): E11.9 - TYPE 2 DIABETES MELLITUS WITHOUT COMPLICATIONS Status: Chronic (5) ESRD (end stage renal disease) on dialysis Code(s): N18.6 - END STAGE RENAL DISEASE; Z99.2 - DEPENDENCE ON RENAL DIALYSIS Status: Chronic (6) HIV (human immunodeficiency virus infection) Code(s): B20 - HUMAN IMMUNODEFICIENCY VIRUS [HIV] DISEASE Status: Chronic (7) HTN (hypertension) Code(s): I10 - ESSENTIAL (PRIMARY) HYPERTENSION Status: Chronic Qualifiers: Hypertension type: essential hypertension Qualified Code(s): I10 - Essential (primary) hypertension (8) IVONNE on CPAP Code(s): G47.33 - OBSTRUCTIVE SLEEP APNEA (ADULT) (PEDIATRIC); Z99.89 - DEPENDENCE ON OTHER ENABLING MACHINES AND DEVICES Status: Chronic (9) Pruritic condition Code(s): L29.9 - PRURITUS, UNSPECIFIED Status: Acute (10) GI bleed Code(s): K92.2 - GASTROINTESTINAL HEMORRHAGE, UNSPECIFIED Status: Acute (11) Gastritis Code(s): K29.70 - GASTRITIS, UNSPECIFIED, WITHOUT BLEEDING Status: Acute (12) Anemia Code(s): D64.9 - ANEMIA, UNSPECIFIED Status: Chronic Qualifiers: Anemia type: other cause Other causes of anemia: chronic disease, other Qualified Code(s): D63.8 - Anemia in other chronic diseases classified elsewhere - Plan Medically stable. ABDI CM. Working processing paperwork to get approval for placement. HCT working well for him. Had two units with HD yesterday. Recheck. Continue PPI. Continue Dificid. Reviewed MRI. Has [place] shoulder. Chronic pain. Incentive spirometer.
--- NOTE | 2019-03-22 13:18 | PRG ---
DATE OF SERVICE: 03/22/2019 SUBJECTIVE: The patient was seen and examined and feeling better. Received 2 units of blood during dialysis yesterday. Noted with the following vital signs. OBJECTIVE: VITAL SIGNS: Afebrile, temperature 99, pulse 91, respiratory rate of 16, O2 saturations of 93%, blood pressure 138/90. HEENT: Unremarkable. CARDIOVASCULAR SYSTEM: First and second heart sounds were heard. RESPIRATORY SYSTEM: Clear to auscultation. DIGESTIVE SYSTEM: Revealed a benign abdomen. EXTREMITIES: No peripheral edema. SKIN: No new gross rash. LYMPHATICS: No peripheral lymphadenopathy. IMPRESSION: 1. End-stage renal disease, on hemodialysis. 2. Anemia, requiring transfusion. PLAN: 1. We will continue with current regimen of dialysis on Monday, , and Monday. 2. Further management to be dependent on the clinical course. Job ID: [id number]
[2019-03-22] MEDS: Acetaminophen/Codeine 30-300mg Tablet PO PRN (14:11)
[2019-03-22 19:48] VITALS: BP 145/90; TEMP 98.3
--- NOTE | 2019-03-25 08:36 | DIS ---
DATE OF ADMISSION: 03/12/2019 DATE OF DISCHARGE: 03/22/2019 DISCHARGE DIAGNOSES: 1. Bowel obstruction, possible gastric outlet obstruction versus ileus. 2. Clostridium difficile colitis. 3. Chronic pain. 4. Diabetes mellitus. 5. End-stage renal disease, on dialysis. 6. Human immunodeficiency virus infection. 7. Hypertension. 8. Obstructive sleep apnea. 9. Pruritis, likely secondary to end-stage renal disease. 10. Gastrointestinal bleed. 11. Gastritis. 12. Anemia. HISTORY: This patient is a 63-year-old male, who had previously been admitted to the hospital with upper gastrointestinal bleed symptoms. He had undergone endoscopy, which showed some friable gastric mucosa, which is possibly the source of his bleeding. He had been also found to have C difficile colitis. He was discharged to rehab and presented back to the hospital with worsening anemia. His hemoglobin is noted to be 4.8. He was seen in the emergency department, where his hemoglobin was 5.9. He had 2 units of blood given. He was subsequently admitted for observation. HOSPITAL COURSE: The patient received the blood. He was continuing to have dialysis on a normal regimen. The patient subsequently developed significant abdominal distention with multiple episodes of coffee-grounds emesis. He had a CT scan of the abdomen and pelvis, which was concerning for a midgut volvulus. He was seen by Dr. Alexis, who placed NG tube and obtained 3.8 L of fluid with some coffee-ground discoloration. The patient had substantial improvement in his symptoms at that time. Therefore, Dr. Alexis felt he likely did not have a volvulus, but there was concern for gastric outlet obstruction versus gastroparesis. He subsequently had a small-bowel follow-through, which was unremarkable. Therefore, the patient was slowly able to go back to having a regular diet, which he tolerated well from that point forward. He continued on the PPI and continued with dialysis and continued with Dificid for his C diff infection. The patient continued to progress from that time and was able to get back on a regular diet without much difficulty. His diarrhea did show some signs of improvement throughout his stay as well. Ultimately, he was felt to be stable for discharge, it took several days to secure placement for him after he was deemed medically stable. PHYSICAL EXAMINATION: VITAL SIGNS: On the day of discharge, temperature was 98.3, pulse 86, respirations 16, O2 saturation 96% on 3 L nasal cannula, BP 145/90. GENERAL APPEARANCE: Age-appropriate male, in no distress. He is awake, alert, oriented, pleasant, cooperative. HEART: Regular rate and rhythm. LUNGS: Clear. ABDOMEN: Soft, nontender. EXTREMITIES: Left [id number] amputation. DISPOSITION: The patient is discharged in stable condition. His activity is as tolerated. He will remain on isolation until 03/27/2019. He will continue renal diet. He will have occupational therapy, physical therapy, and supplemental oxygen. MEDICATIONS: Will include; 1. Tylenol No. 3. 2. Benadryl. 3. Retacrit. 4. Dificid. 5. Hydrocortisone cream. 6. Melatonin. 7. Pantoprazole. 8. Chloraseptic spray. 9. Florastor. 10. Temazepam. He will continue on; 1. B12. 2. Isentress. 3. Pravastatin. 4. Pamelor. 5. Apresoline. 6. Etravirine. 7. Gabapentin. 8. Folic acid. 9. Flonase. 10. Coreg. 11. Calcium. 12. Zidovudine. 13. Spiriva. 14. Proventil. 15. Aspirin. 16. Lisinopril. FOLLOWUP: He will follow up with [facility], where he will be discharged to and he will also follow up with the [facility] after he is discharged from there. He can return to the hospital should he have any problems prior to that time. Total time in discharge activities including [id number] time with the patient, which represented greater than 50% of our visit was 35 minutes. Job ID: [id number]
== END 2019-03-22 19:54 | DRG 380 ==
LOC: ERS 15:40 → T4-B 20:20 → INTOOBSV 21:03 → OBSVTOIN 03-12 09:00
PROVIDERS: ADMIT Internal Medicine; ATTEND Internal Medicine
PROC: 5A1D70Z Performance of Urinary Filtration, Intermittent, Less than 6 Hours Per Day (ICD-10-PCS; principal; 2019-03-12)
PROC: 30233N1 Transfusion of Nonautologous Red Blood Cells into Peripheral Vein, Percutaneous Approach (ICD-10-PCS; 2019-03-12)
DX: K31.1 Adult hypertrophic pyloric stenosis (principal); N18.6 End stage renal disease; D62 Acute posthemorrhagic anemia; A04.72 Enterocolitis due to Clostridium difficile, not specified as recurrent; K56.690 Other partial intestinal obstruction; I12.0 Hypertensive chronic kidney disease with stage 5 chronic kidney disease or end stage renal disease; E11.43 Type 2 diabetes mellitus with diabetic autonomic (poly)neuropathy; K31.84 Gastroparesis; Z21 Asymptomatic human immunodeficiency virus [HIV] infection status; J44.9 Chronic obstructive pulmonary disease, unspecified; G47.33 Obstructive sleep apnea (adult) (pediatric); E11.22 Type 2 diabetes mellitus with diabetic chronic kidney disease; E87.5 Hyperkalemia; D63.1 Anemia in chronic kidney disease; E78.5 Hyperlipidemia, unspecified; Z96.652 Presence of left artificial knee joint; Z85.01 Personal history of malignant neoplasm of esophagus; Z99.2 Dependence on renal dialysis; Z88.1 Allergy status to other antibiotic agents; Z88.8 Allergy status to other drugs, medicaments and biological substances; Z79.899 Other long term (current) drug therapy; Z79.82 Long term (current) use of aspirin; Z79.51 Long term (current) use of inhaled steroids; Z89.612 Acquired absence of left leg above knee; Z87.891 Personal history of nicotine dependence; Z92.21 Personal history of antineoplastic chemotherapy; Z92.23 Personal history of estrogen therapy; Z99.89 Dependence on other enabling machines and devices
CPT/HCPCS: 36415; 36430; 71045; 74019; 74176; 74250; 80048; 80053; 82271; 82274; 82728; 83540; 83550; 83605; 83735; 84100; 85025; 85610; 85730; 86850; 86900; 86901; 90935; 94640; 94660; 94760; 96374; C9113; G0257; J1642; J1644; J2060; J2270; J2405; J2765; J8597; P9016; Q0162; Q0163; Q5105; Q9963

== ENCOUNTER 2019-04-02 19:25 | Inpatient (IN) | payer MEDICARE ==
[2019-04-02 20:29] LABS: #Lymphocytes 0.9 thou/uL (1.20-3.40); #Monocytes 0.4 thou/uL (0.11-0.59); #Neutrophils 2.6 thou/uL (1.40-6.50); %Basophils 0.6 % (0.0-1.0); %Eosinophils 0.4 % (0.0-10.0); %Monocytes 11.1 % (0.0-10.0); %Neutrophils 64.9 % (42.0-75.0); Hemoglobin 6.6 g/dL (14.0-18.0); Mean Corpuscular HGB CONC 34.8 g/dL (32.0-36.0); Mean Corpuscular Hemoglobin 36.2 pg (27.0-31.0); Mean Platelet Volume 7.3 fL (7.4-10.4); Platelet Count 167 thou/uL (130-400); RBC Distribution Width 17.5 % (11.5-14.5); Red Blood Cell (RBC) Count 1.82 mill/uL (4.70-6.10)
--- NOTE | 2019-04-02 20:32 | RAD ---
SINGLE RADIOGRAPH CHEST: 04/02/19 COMPARISON: 03/12/19. HISTORY: Diabetes mellitus, hypotension, HIV, COPD. FINDINGS: There is a stable right sided Port-A-Cath. There is stable dense opacity in the left lung base with o bscuration of the left hemidiaphragm and blunting of the left costophrenic angle. There is also stabl e patchy opacity in the right lung base. Findings were better assessed on CT of abdomen and pelvis al so performed 03/12/19. IMPRESSION: Stable chest radiograph as detailed above. Increased density in the lung bases may signify infectious pneumonitis/aspiration in the proper clinical setting. However, this could also be on the basis of c hronic volume loss or scar. POS: MIKE
[2019-04-02 20:51] LABS: ALT (SGPT) Less than 7 U/L (8-55); AST (SGOT) 12 U/L (5-34); Albumin 2.5 g/dL (3.4-4.8); Alkaline Phosphatase 85 U/L (40-150); Anion Gap 20 mmol/L (10-20); BUN (Urea Nitrogen) 88 mg/dL (8.4-25.7); Bilirubin, Total 0.7 mg/dL (0.2-1.2); CK (CPK) 75 U/L (30-200); Calc. Creatinine Clearance 0 mL/min (70-130); Calcium 7.2 mg/dL (7.8-10.44); Carbon Dioxide 24 mmol/L (23-31); Chloride 94 mmol/L (98-107); Estimated GFR-MDRD 14; Globulin 3.3 g/dL (2.4-3.5); Glucose 94 mg/dL (80-115); Potassium 6.2 mmol/L (3.5-5.1); Protein, Total 5.8 g/dL (5.8-8.1); Sodium 132 mmol/L (136-145)
[2019-04-02] MEDS ORDERED: Calcium Gluc 4.6 MEQ/10 ML (100 MG/ML) ONE (22:49)
[2019-04-02] MEDS ORDERED: Dextrose 50% Abboject 50 ML SYRINGE ONE (22:49)
[2019-04-02] MEDS ORDERED: Insulin Regular 300 UNITS/3 ML VIAL IVP SCH (23:00)
[2019-04-02] MEDS ORDERED: Albuterol Sulfate 2.5 mg/3 ml Neb ONE (23:08)
[2019-04-02] MEDS ORDERED: Insulin Regular 300 UNITS/3 ML VIAL ONE (23:10)
[2019-04-02 23:33] LABS: Troponin I 0.029 ng/mL (< 0.028)
[2019-04-03] MEDS ORDERED: Ondansetron ODT 4 MG TAB PO PRN (03:48)
[2019-04-03] MEDS ORDERED: Ondansetron PF 4 MG/2 ML Vial IVP PRN (03:48)
[2019-04-03] MEDS ORDERED: Chloraseptic Spray 180 ml Bottle PO PRN (04:25)
[2019-04-03] MEDS ORDERED: Hydrocortisone 1% Cream 30 GM TUBE TOP PRN (04:25)
[2019-04-03] MEDS ORDERED: Melatonin 3 MG TAB PO PRN (04:25)
[2019-04-03] MEDS ORDERED: diphenhydrAMINE 25 MG CAP PO PRN (04:25)
[2019-04-03] MEDS ORDERED: Temazepam 15 MG CAP PO PRN (04:25)
[2019-04-03] MEDS ORDERED: Sodium Chloride 0.9% (PF) 10 ML VIAL FS PRN (04:26)
[2019-04-03] MEDS ORDERED: Vancomycin HCl 1 GM in Premix Bag 1 BAG IVPB SCH (04:30)
[2019-04-03] MEDS ORDERED: Vancomycin HCl 500 MG in Sodium Chloride 0.9% 100 ML IVPB SCH (04:30)
[2019-04-03] MEDS ORDERED: Vancomycin HCl 1.25 GM in Sodium Chloride 0.9% 250 ML 250 ML IVPB SCH ×2 (04:30→04:45)
[2019-04-03] MEDS ORDERED: HOLD VANCOMYCIN FOR LEVEL >20 FS SCH (04:30)
[2019-04-03] MEDS ORDERED: Vancomycin HCl 750 MG in Sodium Chloride 0.9% 250 ML 250 ML IVPB SCH (04:30)
[2019-04-03] MEDS ORDERED: PROVENTIL INHALER 6.7 G (200 INHALATIONS) INH PRN (04:45)
[2019-04-03] MEDS ORDERED: Acetaminophen With Codeine [Tylenol With Codeine #4] 1 TABLET PO PRN (04:45)
[2019-04-03 05:54] LABS: Troponin I 0.038 ng/mL (< 0.028)
[2019-04-03] MEDS ORDERED: Cefepime 1 GM in Sodium Chloride 0.9% 100 ML IVPB SCH (06:00)
[2019-04-03] MEDS ORDERED: Sodium Chloride 0.9% 10 ML ONE (08:02)
--- NOTE | 2019-04-03 08:07 | HP ---
PRIMARY CARE DOCTOR: The patient goes to the [facility] in [place]. CODE STATUS: Full code. TIME OF EVALUATION: 1 a.m. CHIEF COMPLAINT: Hypotension. HISTORY OF PRESENT ILLNESS: This is a 63-year-old male patient, with past medical history of end-stage renal disease, on hemodialysis. The patient has history of diabetes, HIV, COPD, came from [facility] after having an episode of hypotension when he was getting dialysis, for that reason he was unable to get his dialysis today. The patient has a history of C diff and also has a history of having GI bleed that had been resolved. This episode of hypotension was associated with near syncope. He became dizzy and symptoms improved with no clear triggers, no alleviating factors. Symptoms were severe. For that reason he was sent here. The patient's case has been discussed with Dr. Barrera. The patient went to get dialysis here and he was also found to have a hemoglobin in the range of 6 and is receiving blood transfusion. Consult GI for any assistance with the patient. REVIEW OF SYSTEMS: All systems reviewed were negative except for the findings mentioned above. PAST MEDICAL HISTORY: Positive for COPD; end-stage renal disease on hemodialysis on Monday, , and Monday with Dr. Barrera; hypertension, HIV; hyperlipidemia. PAST SURGICAL HISTORY: Hemorrhoidectomy, amputation of the left lower extremity , left AKA for staph infection, status post left total knee replacement, hernia repair x3, tonsillectomy, and left elbow surgery. PSYCHIATRIC HISTORY: No previous psych history. FAMILY HISTORY:Reviewed and non contributory to current presentation. SOCIAL HISTORY: The patient drinks socially. 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 Former tobacco user. Smokes cigarettes, quit smoking more than 10 years ago. Lives at home alone. KNOWN ALLERGIES: Cipro, clindamycin, paroxetine, Paxil. REPORTED MEDICATIONS: 1. Hydralazine. 2. Nortriptyline. 3. Pantoprazole. 4. Polyethylene glycol. 5. Pravastatin. 6. Tylenol. 7. Albuterol. 8. Calcium. 9. Carvedilol. 10. Folic acid. 11. Gabapentin. 12. Spiriva. 13. Respimat. 14. Zidovudine. 15. Lisinopril. 16. Isentress. 17. Aspirin. 18. Intelence. PHYSICAL EXAMINATION: VITAL SIGNS: On presentation was blood pressure 81/58 with heart rate 96, respiratory rate was 20, oxygen saturation was 97% on 2 L. The blood pressure improved after initial approach in the ER. GENERAL: The patient is alert, oriented, no acute distress. HEENT: Eyes; normal conjunctivae, moist oral mucosa. Anicteric. No JVD. RESPIRATORY: Bilateral air entry. No rales. No wheezes. Symmetric expansion. The patient is wearing oxygen 2 L that he wears at home. CARDIOVASCULAR: Normal rate, regular rhythm. No murmurs. No gallop. No edema. ABDOMEN: Soft. Normal bowel sounds. MUSCULOSKELETAL: Baseline range of motion and strength. SKIN: Warm, intact. No pallor. No rash. No redness. The patient has left- sided AV fistula. NEURO: No evidence of any new focal weakness. Cranial nerves seems to be intact. PSYCH: The patient is in good mood. No anxiety. Optimal judgment. DIAGNOSTIC STUDIES: EKG was reviewed. The patient has normal sinus rhythm with left atrial enlargement, ventricular rate 91, SD 200, QRS 116, QT corrected 462. The chest x-ray was reviewed. Stable chest radiograph as detailed above. Increased density in the lung bases. May signify infectious pneumonitis aspiration in the proper clinical setting. However, this could also be on the basis of chronic volume loss . LABORATORY DATA: Reviewed. The patient's hemoglobin 6.6, MCV 104, platelet count 167. Chemistry; sodium 132, potassium 6.2, chloride 94, carbon dioxide 24, anion gap 20, BUN 88, creatinine is 5.08, GFR 14, glucose 94, calcium 7.2, total bilirubin 0.7, AST 12, ALT less than 7, alkaline phosphatase 85. CK 75. Troponin 0.029. Serum total protein 5.8, albumin 2.5, globulin 3.3, albumin globulin ratio is 0.8. ASSESSMENT AND PLAN: The patient will be placed in the hospital with following medical problems. 1. Near-syncope episode with hypotension, unclear etiology. The patient has some reasons for that. The patient has anemia. The patient has gastrointestinal bleeding. The patient also has possible pneumonia. We will treat underlying etiology. 2. Chronic blood loss anemia. The patient is on aspirin, that we will hold for now. Hemoglobin was 6.5 on presentation. He had similar episode previously. He has been seen by GI, has been scoped before. We will need GI re-evaluation for any further recommendations. The patient is being given blood in hemodialysis as recommended by Dr. Barrera. We will follow any other recommendation from Nephro standpoint. 3. Possible pneumonia as seen on chest x-ray. The patient is in embodiment due to hemodialysis. We will cover with cefepime and vanco. We will adjust doses for kidney function. We will follow cultures. We will monitor. If no infection is ruled out, then we cannot step-down antibiotics as soon as we get some results from the cultures. 4. Hyponatremia. Sodium 132. This is mild. The patient receives hemodialysis now. We will monitor and treat accordingly. 5. End-stage renal disease, on hemodialysis. Follow with Dr. Barrera pending hemodialysis overnight. The patient also unable to get as outpatient due to hypotension. 6. Hyperkalemia, 6.2, likely due to hemodialysis today. The patient is getting hemodialysis now. We will monitor and treat accordingly. 7. Mildly-elevated troponin. This is about the same numbers he has had before, likely secondary to underlying end-stage renal disease unlikely to be an acute coronary syndrome. We will trend troponins and treat accordingly. 8. History of human immunodeficiency viruses. Reconcile home medications. This is chronic. 9. Uncontrolled hypertension. The patient presented with hypotension. Reconcile home medications, adjust treatment as needed. 10. Hypercholesterolemia. Reconcile home medications. Low-cholesterol diet is advised. 11. Insomnia. Reconcile home medications. 12. Deep venous thrombosis prophylaxis and prior SCDs. Job ID: [id number] [facility]
[2019-04-03] MEDS: Cefepime 1 GM in Sodium Chloride 0.9% 100 ML IVPB SCH (08:23)
[2019-04-03] MEDS: Saccharomyces boulardii 250 MG CAP PO SCH (08:24)
[2019-04-03] MEDS: Folic Acid 1 MG TAB PO SCH (08:24)
[2019-04-03] MEDS: Raltegravir Potassium 400 MG TAB PO SCH ×2 (08:24→20:31)
[2019-04-03] MEDS: Cyanocobalamin (Vitamin B-12) 1,000 MCG TAB PO SCH (08:24)
[2019-04-03] MEDS: Pantoprazole 40 MG VIAL IVP SCH ×2 (08:24→20:31)
[2019-04-03] MEDS: Fidaxomicin 200 MG TAB PO SCH ×2 (08:25→20:30)
[2019-04-03] MEDS: Fluticasone Propionate Nasal Spray 16 gm Bottle NASAL SCH (08:26)
[2019-04-03] MEDS ORDERED: CALCIUM LACTATE 650 MG PO SCH (09:00)
[2019-04-03] MEDS ORDERED: Carvedilol 6.25 MG TAB PO SCH (09:00)
--- NOTE | 2019-04-03 10:01 | CON ---
DATE OF CONSULTATION: 04/03/2019 REASON FOR CONSULTATION: End-stage renal disease management. REQUESTING PHYSICIAN: Francisco Cortez MD HISTORY OF PRESENT ILLNESS: A 63-year-old male patient with known history of end-stage renal disease, on hemodialysis, chronic respiratory failure, on oxygen therapy, amongst others, who was transferred from inpatient rehab to this hospital due to acute onset of hypotension associated with dizziness and near syncope. The patient suddenly developed hypotension such that hemodialysis could not be performed at the inpatient rehab facility. Subsequent evaluation showed acute drop in hemoglobin and the patient also complained of dizziness. There was no associated fever, chest pain, palpitation, or diaphoresis. The patient admitted to an episode of nausea and vomiting, but denied hematemesis, melena, or hematochezia. In the ER, the patient was found to have hyperkalemia as well as acute anemia with hemoglobin of 6.6, hence was transfused 2 units of packed red blood cells and also received emergent dialysis for 2 hours. He is feeling a lot better currently and denied headache, nausea, vomiting, abdominal pain, or dizziness. OBJECTIVE: VITAL SIGNS: Temperature 98.9, pulse 87, respiratory rate 18, SpO2 of 99% on 3 L nasal cannula, blood pressure is 130/82. GENERAL: Elderly male, in no obvious distress. Afebrile. Anicteric. HEENT: Normocephalic, atraumatic. Oral mucosa is moist. NECK: Supple. Nontender. Mild JVD noted. No masses appreciated. CARDIOVASCULAR: Regular rhythm and rate with normal heart sounds 1 and 2. Systolic murmur noted. RESPIRATORY: Good air entry bilateral with no obvious crackle or rhonchi or use of accessory muscles. Air entry, however, is decreased at both bases. GI: Full, soft, nontender, nondistended with normal bowel sounds. EXTREMITIES: Left forearm AV fistula with aneurysm, left AKA noted. Other extremities are unremarkable with no obvious edema. TIMEKEEPING SUPERVISOR: Conscious and alert, oriented x3 with appropriate mental status. Cranial nerves 2 through 12 are intact. DIAGNOSTIC DATA: CBC on April 02 showed WBC count of 4.0, hemoglobin of 6.6, MCV of 104, platelet of 167. CMP of April 02 showed sodium 132, potassium 6.2, chloride 94, carbon dioxide 24, BUN 88, creatinine 5.08, glucose 94, calcium 7.2, total bilirubin 0.7, AST 12, ALT less than 7, alkaline phosphatase 85. Total protein 5.8, albumin 2.5, globulin 3.3. Initial troponin is 0.026, but repeat 2 hours later is up to 0.029 and repeat this morning is 0.38. Chest x-ray performed on April 02 showed stable chest radiograph with dense opacity in the left lung base with obscuration of the left hemidiaphragm and blunting of the left costophrenic angle. Also noted was the stable patchy opacity in the right lung base. ASSESSMENT AND PLAN: 1. Transient hypotension: Etiology is unclear. However, associated acute drop in hemoglobin is concerning for acute blood loss with hypovolemia. The patient, however, denied hematemesis, melena, or hematochezia, though he has history of erosive esophagitis. 2. Acute on chronic anemia. 3. End-stage renal disease, on maintenance hemodialysis. 4. Hyperkalemia: Due to end-stage renal disease. Treated with hemodialysis. PLAN: I agree with continuation of empirical antibiotics while awaiting for blood cultures and further evaluation. The patient was dialyzed 2 units with transfusion of 2 units of packed red blood cells. There is no indication for hemodialysis today. We will get repeat BMP and hemoglobin. We will plan on dialyzing the patient tomorrow in line with his outpatient maintenance dialysis schedule. Job ID: [id number]
--- NOTE | 2019-04-03 10:26 | PDOC.HOSPP ---
- Subjective Encounter Date: 04/03/19 Subjective: the patient doing okay today, just had ashower. - Objective Vital Signs & Weight: Vital Signs (12 hours) Temp Pulse Resp BP BP Pulse Ox 04/03/19 07:23 98.9 F 87 18 130/82 99 04/03/19 03:48 98.5 F 77 24 H 107/73 99 04/03/19 01:15 98 F 76 24 H 119/66 92 L Weight Weight 190 lb 7.67 oz I&O: 04/02/19 04/03/19 04/04/19 06:59 06:59 06:59 Intake Total 350 Balance 350 Result Diagrams: 04/02/19 20:10 04/03/19 05:13 Additional Labs: Accuchecks 04/02/19 23:01 POC Glucose 111 H ROS - Review of Systems Constitutional: denies: fever, chills, sweats, weakness, malaise, other Eyes: denies: pain, vision change, conjunctivae inflammation, eyelid inflammation, redness, other ENT: denies: ear pain, ear discharge, nose pain, nose discharge, nose congestion , mouth pain, mouth swelling, throat pain, throat swelling, other Respiratory: denies: cough, dry, shortness of breath, hemoptysis, SOB with excertion, pleuritic pain, sputum, wheezing, other Cardiovascular: denies: chest pain, palpitations, orthopnea, paroxysmal noc. dyspnea, edema, light headedness, other Gastrointestinal: denies: nausea, vomitting, abdominal pain, diarrhea, constipation, melena, hematochezia, other Genitourinary: denies: dysuria, frequency, incontinence, hematuria, retention, other Musculoskeletal: denies: neck pain, shoulder pain, arm pain, back pain, hand pain, leg pain, foot pain, other Skin: denies: rash, lesions, chiara, bruising, other Neurological: denies: weakness, numbness, incoordination, change in speech, confusion, seizures, other - Medication Medications: Active Medications Generic Name Dose Route Start Last Admin Trade Name Freq PRN Reason Stop Dose Admin Cyanocobalamin 1,000 mcg 04/03/19 09:00 04/03/19 08:24 Vitamin B-12 PO 1,000 mcg DAILY ESME Administration Etravirine 200 mg 04/03/19 08:00 04/03/19 08:25 Intelence PO 200 mg BID-PC ESME Administration Fidaxomicin 200 mg 04/03/19 09:00 04/03/19 08:25 Dificid PO 200 mg BID ESME Administration Fluticasone Propionate 0 gm 04/03/19 09:00 04/03/19 08:26 Flonase Nasal [place] NASAL 2 spr DAILY ESME Administration Folic Acid 1 mg 04/03/19 09:00 04/03/19 08:24 Folvite PO 1 mg DAILY ESME Administration Cefepime HCl 1 gm/ Sodium 100 mls @ 200 mls/hr 04/03/19 08:00 04/03/19 08:23 Chloride IVPB 100 mls 0800 ESME Administration Pantoprazole Sodium 40 mg 04/03/19 09:00 04/03/19 08:24 Protonix IVP 40 mg Q12HR ESME Administration Raltegravir 400 mg 04/03/19 09:00 04/03/19 08:24 Isentress PO 400 mg BID ESME Administration Saccharomyces Boulardii 250 mg 04/03/19 09:00 04/03/19 08:24 Florastor PO 250 mg DAILY ESME Administration Zidovudine 100 mg 04/03/19 09:00 04/03/19 08:24 Retrovir PO 100 mg TID ESME Administration - Exam NAD, awake alert, ill appearing ENT: normocephalic atraumatic, no oropharyngeal lesions, moist mucosa, dry oral mucosa Neck: supple, symmetric, no JVD, no thyromegaly, no lymphadenopathy, no carotid bruit, JVD Heart: RRR, no murmur, no gallops, no rubs, normal peripheral pulses, irregular , diminshed peripheral pulses, murmur present, II/IV, III/IV Respiratory: CTAB, no wheezes, no rales, no ronchi, normal chest expansion, no tachypnea, normal percussion, rales, rhonchi, tachypneic, wheezes Gastrointestinal: soft, non-tender, non-distended, normal bowel sounds, no palpable masses, no hepatomegaly, no splenomegaly, no bruit, no guarding, no rigidity, tender to palpation, distended, diminished bowl sounds, voluntary guarding Hosp A/P (1) Anemia in chronic kidney disease Code(s): N18.9 - CHRONIC KIDNEY DISEASE, UNSPECIFIED; D63.1 - ANEMIA IN CHRONIC KIDNEY DISEASE Status: Acute - Plan plan discussed w/ family, continue antibiotics
[2019-04-03 11:15] LABS: Albumin 2.5 g/dL (3.4-4.8); Anion Gap 19 mmol/L (10-20); BUN (Urea Nitrogen) 62 mg/dL (8.4-25.7); BUN/Creatinine Ratio 16.23; Calc. Creatinine Clearance 25 mL/min (70-130); Calcium 7.5 mg/dL (7.8-10.44); Carbon Dioxide 24 mmol/L (23-31); Chloride 97 mmol/L (98-107); Estimated GFR-MDRD 20; Glucose 95 mg/dL (80-115); Phosphorus 4.1 mg/dL (2.3-4.7); Potassium 4.9 mmol/L (3.5-5.1); Sodium 135 mmol/L (136-145)
[2019-04-03 11:22] LABS: Iron 39 ug/dL (65-175); Iron Binding Capacity, Total 101 mcg/dL (261-462)
--- NOTE | 2019-04-03 13:06 | PDOC.PALCO ---
Palliative Care Consult - Consult Details Requesting Physician: Dr Cortez Reason for Consult: goals of care Family Members Present: none - Pertinent HPI Patient was receiving dialysis and had a hypotensive episode that had not obvious trigger or was able to be alleviated. Patient was unable to receive dialysis and was transfered to [facility]. Patient was seen, evaluated and admitted for dialysis and observation. Also identified to have a low hemoglobin of 6, received transfusion. Palliative Care consult for goals of care. - Pertinent PMH COPD, CKD requiring dialysis, anemia, Hypertension, HIV - Social History Smoking Status: Former smoker Smoking: quit greater than 1 year Alcohol Use: occasional Drug Use History: other (past cocaine use) - Allergies Allergies/Adverse Reactions: Allergies Allergy/AdvReac Type Severity Reaction Status Date / Time clindamycin Allergy Intermediate CAUSED Verified 04/03/19 02:44 HYPERKALEMIA paroxetine HCl [From Paxil] Allergy Intermediate PT STATES Verified 04/03/19 02: 44 IT MADE HIM VERY CRAZY IN HEAD ciprofloxacin Allergy Verified 04/03/19 02:44 - Subjective Awake alert and sitting up in bed upon my arrival. Lethargic. No specific complaints. ROS: 10 point review negative as per patient - Objective Vital Signs: Vital Signs - Most Recent Temp Pulse Resp BP Pulse Ox 97.8 F 94 18 126/85 96 04/03/19 12:32 04/03/19 12:32 04/03/19 12:32 04/03/19 12:32 04/03/19 12:32 Palliative Performance Scale: 50 - Physical Exam Constitutional: NAD HEENT: moist MMs, EOMI Respiratory: clear to auscultation bilateral, unlabored breathing Cardiovascular: irregular Gastrointestinal: positive bowel sounds Musculoskeletal: edema present Deviation from normal: above the knee amputation to left lower extremity. Deviation from normal: phantom pain to left lower extremity Psychiatric: A&O x 3 Deviation from normal: lethargic, Skin: normal turgor - Problem List (1) Palliative care encounter Code(s): Z51.5 - ENCOUNTER FOR PALLIATIVE CARE Current Visit: Yes Status: Acute (2) Acute on chronic diastolic heart failure Code(s): I50.33 - ACUTE ON CHRONIC DIASTOLIC (CONGESTIVE) HEART FAILURE Current Visit: No Status: Acute (3) DM (diabetes mellitus) Code(s): E11.9 - TYPE 2 DIABETES MELLITUS WITHOUT COMPLICATIONS Current Visit : No Status: Chronic (4) ESRD (end stage renal disease) on dialysis Code(s): N18.6 - END STAGE RENAL DISEASE; Z99.2 - DEPENDENCE ON RENAL DIALYSIS Current Visit: No Status: Chronic (5) HIV (human immunodeficiency virus infection) Code(s): B20 - HUMAN IMMUNODEFICIENCY VIRUS [HIV] DISEASE Current Visit: No Status: Chronic - Plan/Recommendations Plan: extensive converation with patietn in relation to chronic disease processes and disease trajectory. Patient states he wants to "fight like a solider". Discussed changing the perspective for what he is fighting for. He states he wants "everything done" to keep him alive, even if he is unconcious. Confirmed that patient desires to remain full resuscitation status, that he wishes to continue with dialysis. Patient was able to relay his chronic disease processes, however he was unable to discuss the impact of chronic illnesses on his health status and trajectory of disease. Palliative Care will continue to support patient and revisit goals of care inline with chronic disease processes and expected trajectory. [60] minutes spent on this encounter with >50% of the time in counseling and coordination of care. Thank you for this very appropriate consult.
[2019-04-03 16:17] VITALS: BMI 24.4
[2019-04-03] MEDS: Nortriptyline HCl 25 MG CAP PO SCH (20:31)
[2019-04-03] MEDS: Simvastatin 5 MG TAB PO SCH (20:31)
[2019-04-03] MEDS: Acetaminophen 325 MG TAB PO PRN (20:32)
--- NOTE | 2019-04-03 22:11 | CON ---
DATE OF CONSULTATION: 04/03/2019 REASON FOR CONSULTATION: Anemia. CONSULTING PROVIDER: Francisco Cortez MD HISTORY OF PRESENT ILLNESS: The patient is a 63-year-old male with past medical history of COPD, end-stage renal disease, on hemodialysis, hypertension, HIV, hyperlipidemia, esophageal cancer status post chemotherapy and radiation, and recent C diff infection, treated with Dificid, as well as recent GI bleeding from an upper GI tract origin, presenting with significant anemia. Per the patient, he states that he was in dialysis yesterday and was told by the doctor that he could no longer continue the dialysis due to low blood pressure and that he would need to be admitted to the hospital. On evaluation in the ER here in the hospital, he was noted to have a significantly decreased H and H when compared to his baseline (baseline hemoglobin of 8.2). However, the patient does not endorse any episodes of hematemesis (like during his last hospitalization) or melena. He did have an episode of hematochezia with the passage of a bowel movement shortly before admission, but was characterized as a minimal amount of bright red blood per rectum and has since not recurred. He also endorses increased vomiting with the last occurrence yesterday, but this has also been occurring only once weekly since his discharge from the hospital. Otherwise, he denies any fevers, chills, hematemesis, melena, diarrhea, constipation, or abdominal pain. REVIEW OF SYSTEMS: A 10-category review of systems was obtained with all responses negative except for the pertinent positives as listed in HPI. PAST MEDICAL HISTORY: As per HPI. PAST SURGICAL HISTORY: Hemorrhoidectomy, amputation of the left lower extremity along with a left AKA for staph infection, left total knee replacement, hernia repair x3, tonsillectomy, and left elbow surgery. FAMILY HISTORY: He denies any GI malignancies. SOCIAL HISTORY: The patient does drink alcohol socially, but denies any recent tobacco or illicit drug use. OUTPATIENT MEDICATIONS: Reviewed. ALLERGIES: CIPRO, CLINDAMYCIN, PAROXETINE, AND PAXIL. PHYSICAL EXAMINATION: VITAL SIGNS: Temperature 97.8, pulse 92, blood pressure 128/91, respiratory rate 18, and saturating 98% on 2 L nasal cannula. GENERAL: The patient is lying in bed, in no acute distress, alert and oriented x4, although somewhat somnolent during the course of the interview. HEENT: Normocephalic and atraumatic. NECK: Supple. No scleral icterus or JVD noted. CARDIOVASCULAR: Holosystolic murmur was heard in all heart arriaga consistent with transferred sound from his arteriovenous fistula. No discernible gallops or rubs. RESPIRATORY: Clear to auscultation bilaterally with no discernible wheezes or rales. ABDOMEN: Normoactive bowel sounds. Soft, nontender, and nondistended. EXTREMITIES: No cyanosis, clubbing or edema. Left [id number] amputation noted. LABORATORY DATA: CBC with a white blood cell count of 4, hemoglobin 6.6, hematocrit 19, and platelets 167. Chemistry with a sodium of 135, potassium 4.9, chloride 97, CO2 of 24, BUN 62, creatinine 3.82, and glucose 95. AST 12, ALT less than 7, and alkaline phosphatase 85. Total bilirubin 0.7. MCV 104. Iron 39, TIBC 101 (iron indices obtained from blood drawn prior to blood transfusion). IMAGING DATA: Chest x-ray obtained on April 02, 2019, showed a stable right-sided Port-A-Cath as well as a stable dense opacity in the left lung base with obscuration of the left hemidiaphragm and blunting of the left costophrenic angle. There is also stable patchy opacity within the right lung base, which could be indicative of pneumonitis versus aspiration versus chronic volume loss or scar. ASSESSMENT AND PLAN: The patient is a 63-year-old male with past medical history of chronic obstructive pulmonary disease, end-stage renal disease, on hemodialysis, hypertension, human immunodeficiency virus, hyperlipidemia, esophageal cancer status post chemo and radiation therapy, and recent diagnosis of Clostridium difficile, currently on treatment, presenting with anemia. Anemia: The patient has a longstanding history of anemia, that has been present for at least 3 years, for which he is undergoing infusion of erythropoietin as an outpatient during dialysis. However, the patient was recently admitted to the hospital with hematemesis at that time and an upper endoscopy was performed showing friable edematous gastritis, which may have been due to radiation to the area, but there was no evidence of residual esophageal cancer when visualized during the upper endoscopy. Also noted during the most recent hospitalization, the patient was noted to have anemia secondary to end-stage renal disease/chronic disease, which is further echoed on iron indices obtained on this admission with a slightly low iron, but a significantly low TIBC as well as an elevated MCV making chronic GI blood loss much less likely. At this time, the patient is not endorsing any symptoms of overt GI bleeding except for minimal hematochezia that is attributed to hemorrhoids and hemorrhoidal bleeding, but iron indices indicative of more of an anemia of renal disease/chronic disease. However, with rapid acute blood loss, it could potentially not be shown with the current iron indices, so further monitoring of this patient is worthwhile. RECOMMENDATIONS: 1. We would continue to trend H and H and transfuse as necessary to maintain an H and H of 03/03. 2. Continue to monitor clinically for signs of active GI bleeding. 3. Upper endoscopy is not indicated at this time given recent endoscopy, no evidence of hematemesis, and the patient's reluctance to proceed with endoscopy at this time. Given his minimal amounts of bright red blood per rectum, this could be more attributed to hemorrhoidal bleeding, but I would continue to trend his H and H, and if it continues to fall, would consider colonoscopy for further evaluation. 4. We would defer to Nephrology Service for infusion of erythropoietin during dialysis and maintenance of anemia of renal disease. We will continue to follow. Please call with any questions. Job ID: [id number]
[2019-04-04] MEDS: Acetaminophen 325 MG TAB PO PRN (06:05)
[2019-04-04 08:59] LABS: Vancomycin, Random 10.9 ug/mL (See Comment)
--- NOTE | 2019-04-04 10:34 | PDOC.HOSPP ---
- Subjective Encounter Date: 04/04/19 Encounter Time: 10:33 - Objective Vital Signs & Weight: Vital Signs (12 hours) Temp Pulse Resp BP Pulse Ox 04/04/19 07:44 98.7 F 98 18 156/92 H 94 L 04/04/19 04:00 98.2 F 81 20 165/91 H 98 04/04/19 00:25 91 15 97 04/04/19 00:00 95 143/89 H Weight Admit Weight 190 lb 7.67 oz Weight 194 lb 3.636 oz I&O: 04/03/19 04/04/19 04/05/19 06:59 06:59 06:59 Intake Total 350 1130 Output Total 0 Balance 350 1130 Result Diagrams: 04/02/19 20:10 04/03/19 05:13 Additional Labs: Accuchecks 04/03/19 10:50 POC Glucose 95 ROS - Medication Medications: Active Medications Generic Name Dose Route Start Last Admin Trade Name Freq PRN Reason Stop Dose Admin Acetaminophen 650 mg 04/03/19 03:48 04/04/19 06:05 Tylenol PO 650 mg Q4H PRN Administration Headache/Fever/Mild Pain (1-3) Cyanocobalamin 1,000 mcg 04/03/19 09:00 04/03/19 08:24 Vitamin B-12 PO 1,000 mcg DAILY ESME Administration Etravirine 200 mg 04/03/19 08:00 04/03/19 17:33 Intelence PO 200 mg BID-PC ESME Administration Fidaxomicin 200 mg 04/03/19 09:00 04/03/19 20:30 Dificid PO 200 mg BID ESME Administration Fluticasone Propionate 0 gm 04/03/19 09:00 04/03/19 08:26 Flonase Nasal [place] NASAL 2 spr DAILY ESME Administration Folic Acid 1 mg 04/03/19 09:00 04/03/19 08:24 Folvite PO 1 mg DAILY ESME Administration Cefepime HCl 1 gm/ Sodium 100 mls @ 200 mls/hr 04/03/19 08:00 04/03/19 08:23 Chloride IVPB 100 mls 0800 ESME Administration Nortriptyline HCl 25 mg 04/03/19 21:00 04/03/19 20:31 Pamelor PO 25 mg HS ESME Administration Pantoprazole Sodium 40 mg 04/03/19 09:00 04/03/19 20:31 Protonix IVP 40 mg Q12HR ESME Administration Raltegravir 400 mg 04/03/19 09:00 04/03/19 20:31 Isentress PO 400 mg BID ESME Administration Saccharomyces Boulardii 250 mg 04/03/19 09:00 04/03/19 08:24 Florastor PO 250 mg DAILY ESME Administration Simvastatin 10 mg 04/03/19 21:00 04/03/19 20:31 Zocor PO 10 mg HS ESME Administration Zidovudine 100 mg 04/03/19 09:00 04/04/19 07:54 Retrovir PO Not Given TID ESME - Exam NAD, awake alert, ill appearing Eye: PERRL, anicteric sclera, scleral icterus ENT: normocephalic atraumatic, no oropharyngeal lesions, moist mucosa, dry oral mucosa Neck: supple, symmetric, no JVD, no thyromegaly, no lymphadenopathy, no carotid bruit, JVD Heart: RRR, no murmur, no gallops, no rubs, normal peripheral pulses, irregular , diminshed peripheral pulses, murmur present, II/IV, III/IV Respiratory: CTAB, no wheezes, no rales, no ronchi, normal chest expansion, no tachypnea, normal percussion, rales, rhonchi, tachypneic, wheezes Gastrointestinal: soft, non-tender, non-distended, normal bowel sounds, no palpable masses, no hepatomegaly, no splenomegaly, no bruit, no guarding, no rigidity, tender to palpation, distended, diminished bowl sounds, voluntary guarding Hosp A/P (1) Anemia in chronic kidney disease Code(s): N18.9 - CHRONIC KIDNEY DISEASE, UNSPECIFIED; D63.1 - ANEMIA IN CHRONIC KIDNEY DISEASE Status: Acute - Plan plan discussed w/ family, out of bed/ambulate
[2019-04-04] MEDS ORDERED: EPOETIN ALFA-EPBX (ESRD) 4,000 UNIT/ML VIAL IVP SCH (11:00)
--- NOTE | 2019-04-04 11:08 | PRG ---
DATE OF SERVICE: 04/04/2019 SUBJECTIVE: The patient is in hemodialysis, no new complaints. OBJECTIVE: VITAL SIGNS: Temperature 98.7, pulse 98, blood pressure 156/92. HEENT: [place]. LUNGS: Clear to auscultation. CARDIOVASCULAR: S1 and S2 heard. ABDOMEN: Soft. Bowel sounds present. Nontender, nondistended. EXTREMITIES: No cyanosis, calf tenderness, or edema. LABORATORY WORKUP: Reviewed from yesterday, hemoglobin was 6.6. IMPRESSION: 1. Anemia, acute blood loss versus caused by the anemia of chronic disease. 2. End-stage renal disease, on hemodialysis. PLAN: 1. We will check CBC. We will resume home medicines today as blood pressure has improved today. 2. We will continue the antibiotics including cefepime. 3. Discharge planning possibly tomorrow if okay with Nephrology. Job ID: [id number]
[2019-04-04 13:28] LABS: #Lymphocytes 0.8 thou/uL (1.20-3.40); #Monocytes 0.4 thou/uL (0.11-0.59); #Neutrophils 2.1 thou/uL (1.40-6.50); %Basophils 0.6 % (0.0-1.0); %Eosinophils 1.5 % (0.0-10.0); %Monocytes 11.1 % (0.0-10.0); %Neutrophils 63.9 % (42.0-75.0); Hemoglobin 8.3 g/dL (14.0-18.0); Mean Corpuscular HGB CONC 33.6 g/dL (32.0-36.0); Mean Corpuscular Hemoglobin 34.3 pg (27.0-31.0); Platelet Count 186 thou/uL (130-400); RBC Distribution Width 17.5 % (11.5-14.5); Red Blood Cell (RBC) Count 2.42 mill/uL (4.70-6.10); White Blood Cell (WBC) Count 3.2 thou/uL (4.8-10.8)
[2019-04-04 13:49] LABS: ALT (SGPT) 8 U/L (8-55); AST (SGOT) 12 U/L (5-34); Albumin 2.7 g/dL (3.4-4.8); Alkaline Phosphatase 110 U/L (40-150); Anion Gap 13 mmol/L (10-20); BUN (Urea Nitrogen) 24 mg/dL (8.4-25.7); Bilirubin, Total 0.5 mg/dL (0.2-1.2); Calc. Creatinine Clearance 48 mL/min (70-130); Calcium 8.3 mg/dL (7.8-10.44); Carbon Dioxide 29 mmol/L (23-31); Chloride 97 mmol/L (98-107); Estimated GFR-MDRD 42; Globulin 3.7 g/dL (2.4-3.5); Glucose 79 mg/dL (80-115); Potassium 3.5 mmol/L (3.5-5.1); Protein, Total 6.4 g/dL (5.8-8.1); Sodium 135 mmol/L (136-145)
[2019-04-04] MEDS: Raltegravir Potassium 400 MG TAB PO SCH ×2 (14:25→21:25)
[2019-04-04] MEDS: Folic Acid 1 MG TAB PO SCH (14:25)
[2019-04-04] MEDS: Acetaminophen/Codeine 30-300mg Tablet PO PRN ×2 (14:25→21:28)
[2019-04-04] MEDS: Fidaxomicin 200 MG TAB PO SCH ×2 (14:25→21:24)
[2019-04-04] MEDS: Cyanocobalamin (Vitamin B-12) 1,000 MCG TAB PO SCH (14:25)
[2019-04-04] MEDS: Saccharomyces boulardii 250 MG CAP PO SCH (14:25)
[2019-04-04] MEDS: Pantoprazole 40 MG VIAL IVP SCH ×2 (14:26→21:24)
[2019-04-04] MEDS: Fluticasone Propionate Nasal Spray 16 gm Bottle NASAL SCH (14:26)
[2019-04-04] MEDS: Cefepime 1 GM in Sodium Chloride 0.9% 100 ML IVPB SCH (14:27)
[2019-04-04] MEDS: Lorazepam 0.5 MG TAB PO PRN (17:10)
--- NOTE | 2019-04-04 17:57 | PRG ---
DATE OF SERVICE: 04/04/2019 REASON FOR CONSULTATION: Anemia. SUBJECTIVE: The patient did well overnight with no acute events or problems. He did undergo dialysis earlier today and was exhibiting increased somnolence in the postdialysis period. However, he has not had any episodes of hematemesis, melena, or hematochezia during this admission. He has not had any further episodes of nausea or vomiting as well. OBJECTIVE: VITAL SIGNS: Temperature 98, pulse 85, blood pressure 115/70, respiratory rate 18, saturating 95% on 2 L nasal cannula. GENERAL: The patient was lying in bed, in no acute distress. Alert and oriented x4. CARDIOVASCULAR: Holosystolic murmur heard in all arriaga consistent with transferred sound from his arteriovenous fistula. No discernible gallops or rubs. RESPIRATORY: Clear to auscultation bilaterally. ABDOMEN: Normoactive bowel sounds. Soft, nontender, and nondistended. EXTREMITIES: No cyanosis, clubbing, or edema. Left [id number] amputation noted. LABORATORY DATA: CBC with a white blood cell count of 3.2, hemoglobin 8.3, hematocrit 24.7, platelets 186. Chemistry with a sodium of 135, potassium 3.5, chloride 97, CO2 of 29, BUN 24, creatinine 1.97, glucose 79, AST 12, ALT 8, alkaline phosphatase 115, total bilirubin 0.5, albumin 2.7. IMAGING DATA: No current GI imaging is available for review. ASSESSMENT AND PLAN: The patient is a 63-year-old male with past medical history of chronic obstructive pulmonary disease; end-stage renal disease, on hemodialysis; hypertension; Human immunodeficiency virus; hyperlipidemia; esophageal cancer, status post chemo and radiation therapy; and recent diagnosis of Clostridium difficile (currently on treatment), presenting with anemia. Anemia: The patient is presenting with a long-standing anemia, that has been present for at least the last 3 years, for which he has been undergoing infusion of erythropoietin as an outpatient during dialysis per Nephrology. He was recently admitted to the hospital with hematemesis, and at that time, an upper endoscopy was performed showing friable edematous gastritis, which was attributed to radiation to the proximal stomach, but there was no evidence of residual esophageal cancer visualized at that time. During this admission, he was transfused approximately 2 units of packed red blood cells and has responded appropriately to this infusion. Anemia labs during this admission showed a slightly low iron, but significantly low TIBC as well as a macrocytic-type anemia consistent more with anemia of renal disease rather than a chronic gastrointestinal blood loss. With the lack of overt gastrointestinal bleeding during this admission and response to blood appropriately, the likelihood of an active gastrointestinal bleed is less likely at this time. RECOMMENDATIONS: 1. We would continue to trend H and H and transfuse as necessary to maintain an H and H of 7/21. 2. Continue to monitor clinically for signs of active GI bleeding. 3. Defer to Nephrology Service for management of anemia of renal disease. 4. We will hold on any endoscopic management at this time given lack of obvious GI bleeding source and anemia of renal disease being the more likely diagnosis. We will continue to follow peripherally at this time. Please call with any questions. Job ID: [id number]
[2019-04-04] MEDS ORDERED: Gabapentin 300 MG CAP PO SCH (21:00)
[2019-04-04] MEDS: Nortriptyline HCl 25 MG CAP PO SCH (21:24)
[2019-04-04] MEDS: Simvastatin 5 MG TAB PO SCH (21:25)
--- NOTE | 2019-04-04 22:08 | PRG ---
DATE OF SERVICE: 04/04/2019 SUBJECTIVE: The patient is seen and examined with no new complaint noted with the following vital signs. OBJECTIVE: VITAL SIGNS: Afebrile, temperature 98, pulse 85, respiratory rate of 18, O2 saturation are 95% with blood pressure 115/70. HEENT: Unremarkable. CARDIOVASCULAR: First and second heart sounds were heard. RESPIRATORY SYSTEM: Clear to auscultation. DIGESTIVE SYSTEM: Benign abdomen. EXTREMITIES: No peripheral edema. SKIN: No new gross rash. LYMPHATICS: No peripheral lymphadenopathy. LABORATORY INVESTIGATION: Likely showed inaccurate chemistry, most likely drawn during or immediately after dialysis. IMPRESSION: 1. End-stage renal disease, on hemodialysis. 2. Hypotension/labile hemodynamics. 3. Immunosuppressive retroviral infection. PLAN: 1. We will deescalate the patient's antihypertensive medications in order to optimize hemodynamics. Therefore, we will cut back on the lisinopril dose. 2. Continue erythropoiesis stimulating agent. 3. Further management to be dependent on the clinical course. Job ID: [id number]
[2019-04-05] MEDS: Lorazepam 0.5 MG TAB PO PRN (01:01)
[2019-04-05 05:33] LABS: %Neutrophils 57.7 % (42.0-75.0); Hemoglobin 8.3 g/dL (14.0-18.0); Mean Corpuscular HGB CONC 32.6 g/dL (32.0-36.0); Mean Platelet Volume 7.1 fL (7.4-10.4); Platelet Count 193 thou/uL (130-400); RBC Distribution Width 17.6 % (11.5-14.5); Red Blood Cell (RBC) Count 2.44 mill/uL (4.70-6.10); White Blood Cell (WBC) Count 4.1 thou/uL (4.8-10.8)
[2019-04-05 05:34] LABS: #Eosinphils 0.1 thou/uL (0.0-0.7); #Lymphocytes 1.1 thou/uL (1.20-3.40); #Monocytes 0.6 thou/uL (0.11-0.59); #Neutrophils 2.4 thou/uL (1.40-6.50); %Basophils 0.6 % (0.0-1.0); %Eosinophils 1.5 % (0.0-10.0); %Lymphocytes 25.9 % (21.0-51.0); %Monocytes 14.2 % (0.0-10.0)
[2019-04-05] MEDS: Saccharomyces boulardii 250 MG CAP PO SCH (08:38)
[2019-04-05] MEDS: Cefepime 1 GM in Sodium Chloride 0.9% 100 ML IVPB SCH (08:38)
[2019-04-05] MEDS: Cyanocobalamin (Vitamin B-12) 1,000 MCG TAB PO SCH (08:39)
[2019-04-05] MEDS: Folic Acid 1 MG TAB PO SCH (08:39)
[2019-04-05] MEDS: Raltegravir Potassium 400 MG TAB PO SCH (08:39)
[2019-04-05] MEDS: Fluticasone Propionate Nasal Spray 16 gm Bottle NASAL SCH (08:44)
[2019-04-05] MEDS: Pantoprazole 40 MG VIAL IVP SCH (08:44)
[2019-04-05] MEDS ORDERED: Aspirin 325 MG TAB PO SCH (09:00)
[2019-04-05] MEDS ORDERED: Lisinopril 20 MG TAB PO SCH ×2 (09:00)
[2019-04-05] MEDS ORDERED: hydrALAZINE 25 MG TAB PO SCH (09:00)
[2019-04-05] MEDS: Fidaxomicin 200 MG TAB PO SCH (10:42)
[2019-04-05] MEDS: Acetaminophen/Codeine 30-300mg Tablet PO PRN (12:41)
[2019-04-05 16:19] VITALS: BP 138/74; TEMP 98.5
--- NOTE | 2019-04-06 06:40 | DIS ---
DATE OF ADMISSION: 04/03/2019 DATE OF DISCHARGE: 04/05/2019 CONDITION AT THE TIME OF DISCHARGE: Stable. HOSPITAL COURSE: The patient had been admitted for acute loss of blood and anemic and the patient has been hypotensive, and Nephrology referred the patient for hospitalization. The patient was placed in the hospital and continued the workup including GI consult was obtained. Embossing Machine Operator Helper, Dr. Kojo Zayas, recommended no colonoscopy at this point, and advised to monitor H and H, and no EGD was recommended at this point. If H and H drops, would consider colonoscopy and further evaluation. Nephrology continued to monitor H and H, which has been stable at 8.0. It has been concluded to discharge the patient to outpatient care and follow up with Dr. Barrera for hemodialysis and follow up with Dr. Zayas for gastroenterology followup. CONSULTANTS ON THE CASE: 1. Nephrology, Dr. Barrera. 2. For Nephrology, Herbert Gomez Obi, MD. 3. For Gastroenterology, Kojo Zayas MD. DISCHARGE MEDICATIONS: Please refer to reconciliation sheet for entire list. FOLLOWUP CARE: Follow up with the PCP as scheduled. Job ID: [id number]
--- NOTE | 2019-04-06 15:04 | EKG ---
Test Reason : Blood Pressure : / mmHG Vent. Rate : 091 BPM Atrial Rate : 091 BPM P-R Int : 200 ms QRS Dur : 116 ms QT Int : 376 ms P-R-T Axes : 002 099 -39 degrees QTc Int : 462 ms Normal sinus rhythm Possible Left atrial enlargement Possible Right ventricular hypertrophy Inferior infarct , age undetermined Abnormal ECG T wave inversions inferior and anterolateral leads, present on old EKG from 03/01/2019 Confirmed by GEORGIA JOHNS ([id number]), copy editor CHELSEA NOWAK ([id number]) on 04/06/2019 3:04:18 PM Referred By: Confirmed By:GEORGIA JOHNS
== END 2019-04-05 17:33 | disposition home health service (06) | DRG 811 ==
LOC: ERS 19:25 → 2SW 22:30 → 2NO 04-03 01:58 → OBSVTOIN 04-03 10:56
PROVIDERS: ADMIT Hospitalist; ATTEND Hospitalist
PROC: 5A1D70Z Performance of Urinary Filtration, Intermittent, Less than 6 Hours Per Day (ICD-10-PCS; principal; 2019-04-03)
PROC: 30233N1 Transfusion of Nonautologous Red Blood Cells into Peripheral Vein, Percutaneous Approach (ICD-10-PCS; 2019-04-05)
DX: D62 Acute posthemorrhagic anemia (principal); N18.6 End stage renal disease; I50.33 Acute on chronic diastolic (congestive) heart failure; E87.1 Hypo-osmolality and hyponatremia; I24.9 Acute ischemic heart disease, unspecified; I13.2 Hypertensive heart and chronic kidney disease with heart failure and with stage 5 chronic kidney disease, or end stage renal disease; Z51.5 Encounter for palliative care; Z96.652 Presence of left artificial knee joint; J44.9 Chronic obstructive pulmonary disease, unspecified; E78.5 Hyperlipidemia, unspecified; Z21 Asymptomatic human immunodeficiency virus [HIV] infection status; E87.5 Hyperkalemia; G47.00 Insomnia, unspecified; E86.1 Hypovolemia; E11.22 Type 2 diabetes mellitus with diabetic chronic kidney disease; D63.1 Anemia in chronic kidney disease; Z85.01 Personal history of malignant neoplasm of esophagus; Z99.2 Dependence on renal dialysis; Z89.612 Acquired absence of left leg above knee; Z87.891 Personal history of nicotine dependence; Z79.899 Other long term (current) drug therapy; Z79.82 Long term (current) use of aspirin; Z88.0 Allergy status to penicillin; Z88.8 Allergy status to other drugs, medicaments and biological substances
CPT/HCPCS: 36415; 36416; 36430; 71045; 80053; 80069; 80202; 82274; 82550; 83540; 83550; 84484; 85025; 86850; 86900; 86901; 87040; 90935; 93005; 94640; 94660; 96374; 96375; C9113; G0257; J0692; J1815; J3370; J3490; J7050; J7611; P9016; Q5105

== ENCOUNTER 2019-06-06 06:40 | Inpatient (IN) | payer MEDICARE ==
[2019-06-06] MEDS ORDERED: hydrALAZINE 20 MG/ML VIAL ONE (07:16)
--- NOTE | 2019-06-06 08:01 | RAD ---
1 VIEW CHEST: Date: 06/06/19 HISTORY: Dyspnea. Shortness of breath. Pneumonia. COMPARISON: 04/02/19. FINDINGS: Persistent cardiomegaly. There are bibasilar pleural and parenchymal changes. Lungs are hyperinflated . No pneumothorax. Stable right-sided MediPort catheter. IMPRESSION: 1. Congestive heart failure. 2. Superimposed bibasilar pneumonia cannot be excluded. Continued surveillance to ensure resolution is recommended. POS: MIKE
[2019-06-06 08:06] LABS: #Eosinphils 0.3 thou/uL (0.0-0.7); #Lymphocytes 1.5 thou/uL (1.20-3.40); #Monocytes 0.5 thou/uL (0.11-0.59); #Neutrophils 3.7 thou/uL (1.40-6.50); %Basophils 0.4 % (0.0-1.0); %Eosinophils 4.7 % (0.0-10.0); %Lymphocytes 24.9 % (21.0-51.0); Hemoglobin 9.2 g/dL (14.0-18.0); Mean Corpuscular HGB CONC 33.2 g/dL (32.0-36.0); Mean Corpuscular Hemoglobin 38.6 pg (27.0-31.0); Mean Platelet Volume 7.7 fL (7.4-10.4); Platelet Count 185 thou/uL (130-400); RBC Distribution Width 17.7 % (11.5-14.5); Red Blood Cell (RBC) Count 2.39 mill/uL (4.70-6.10)
[2019-06-06 08:15] LABS: Phosphorus 6.3 mg/dL (2.3-4.7)
[2019-06-06] MEDS ORDERED: Nitroglycerin 2% Ointment 1 INCH/1 GM Packet ONE (08:19)
[2019-06-06 08:23] LABS: ALT (SGPT) 21 U/L (8-55); AST (SGOT) 23 U/L (5-34); Albumin 3.3 g/dL (3.4-4.8); Alkaline Phosphatase 143 U/L (40-110); Anion Gap 18 mmol/L (10-20); BUN (Urea Nitrogen) 51 mg/dL (8.4-25.7); Bilirubin, Total 0.6 mg/dL (0.2-1.2); Calc. Creatinine Clearance 0 mL/min (70-130); Calcium 8.5 mg/dL (7.8-10.44); Carbon Dioxide 24 mmol/L (23-31); Chloride 99 mmol/L (98-107); Estimated GFR-MDRD 16; Globulin 3.8 g/dL (2.4-3.5); Glucose 83 mg/dL (80-115); Magnesium 2.1 mg/dL (1.6-2.6); Potassium 5.2 mmol/L (3.5-5.1); Protein, Total 7.1 g/dL (5.8-8.1); Sodium 136 mmol/L (136-145)
[2019-06-06 08:28] LABS: MDiff Complete? YES; Macrocytosis MODERATE=16-30 cells (100X) (0-5/hpf); Polychromasia SLIGHT = 2-3 cells (100X) (0-2/hpf)
[2019-06-06 08:40] LABS: CKMB 2.8 ng/mL (0-6.6)
[2019-06-06] MEDS ORDERED: Dextrose 50% Abboject 50 ML SYRINGE SLOW IVP PRN (11:33)
[2019-06-06] MEDS ORDERED: Bisacodyl 10 MG SUPP PR PRN (11:33)
[2019-06-06] MEDS ORDERED: HumaLOG 300 UNITS/3 ML VIAL SC PRN (11:33)
[2019-06-06] MEDS ORDERED: Ondansetron ODT 4 MG TAB PO PRN (11:33)
[2019-06-06] MEDS ORDERED: Ondansetron PF 4 MG/2 ML Vial IVP PRN (11:33)
[2019-06-06] MEDS ORDERED: Dextrose 5% in Water 1,000 ML IV PRN (11:33)
[2019-06-06] MEDS ORDERED: Bisacodyl 10 MG SUPP PR SCH (11:45)
[2019-06-06] MEDS ORDERED: Bisacodyl 10 MG SUPP ONE (12:37)
--- NOTE | 2019-06-06 12:47 | HP ---
PRIMARY CARE PROVIDER: [facility] CHIEF COMPLAINT: Worsening shortness of breath. HISTORY OF PRESENT ILLNESS: History is grossly limited due to acute respiratory distress and use of BiPAP. The patient reportedly was discharged from a [facility] yesterday. Last night, he developed acute onset of shortness of breath which progressively worsened, such that he could not breathe, hence he called EMS. EMS reported hypoxia even on home oxygen supplementation. The patient reportedly was having cough with pink frothy sputum. There was no associated fever. The patient admitted to worsening swelling of right lower extremity. He reported some chest discomfort. The patient also reported constipation with last BM last week. Last hemodialysis was on June 04 that is 2 days ago. Due to respiratory distress despite oxygen supplementation, the patient was started on BiPAP with some improvement. On presentation also, the patient was hypertensive with systolic blood pressure above 200, hence was treated with nitroglycerin and IV hydralazine with some improvement. Further evaluation with chest x-ray showed pulmonary congestion consistent with acute diastolic heart failure. The patient has end-stage renal disease, on hemodialysis Monday, , and Monday. Nephrology has been consulted for emergent dialysis. PAST MEDICAL HISTORY: 1. End-stage renal disease, on hemodialysis. 2. Hypertension. 3. HIV infection. 4. Hyperlipidemia. 5. COPD. 6. Chronic respiratory failure, on home oxygen. 7. Diabetes mellitus. 8. Peripheral artery disease, status post left AKA. 9. Chronic diastolic heart failure. 10. Mitral regurgitation. 11. Tricuspid regurgitation. PAST SURGICAL HISTORY: 1. Hemorrhoidectomy. 2. Left AKA. 3. Left total knee replacement. 4. Hernia repair. 5. Tonsillectomy. 6. Left elbow surgery. 7. Recent abdominal surgery. FAMILY HISTORY: Reviewed, but noncontributory. SOCIAL HISTORY: The patient lives alone. Reportedly drinks socially. He is a former smoker. He also used cocaine and marijuana in the past. ALLERGIES: 1. CIPRO. 2. CLINDAMYCIN. 3. PAROXETINE. CURRENT HOME MEDICATIONS: ED records showed that the patient is on the followin. Hydralazine 25 mg. 2. Nortriptyline 25 mg daily at bedtime. 3. Protonix 40 mg p.o. daily. 4. MiraLAX 17 g p.o. daily. 5. Pravastatin 40 mg p.o. daily at bedtime. 6. Tylenol #4 (acetaminophen/codeine 300/60 one tablet every 6 hours p.r.n.). 7. Albuterol inhalation 2 puffs q.6 hours p.r.n. 8. Calcium lactate 650 mg daily in the morning. 9. Carvedilol 6.25 mg p.o. b.i.d. 10. Folic acid 1 mg p.o. daily. 11. Gabapentin 300 mg daily. 12. Spiriva 1 puff inhalation daily. 13. Zidovudine 100 mg t.i.d. 14. Lisinopril 40 mg b.i.d. 15. Isentress 400 mg p.o. daily. 16. Aspirin 325 mg p.o. daily. 17. Intelence 200 mg daily. Note that these medications have not been reconciled. The patient did not come with home medications and is unable to provide detailed medical history due to medical condition. REVIEW OF SYSTEMS: This is grossly limited, but pertinent positives and negatives were included in the History of Present Illness. Otherwise, it is negative. PHYSICAL EXAMINATION: VITAL SIGNS: Initial vitals on presentation to the ER showed blood pressure 200/116, pulse 79, respiratory rate 24, SpO2 of 100 on 4 L, temperature 98.5, respiratory rate 24. Most recent vitals showed blood pressure 152/88, pulse 74, respiratory rate 22, SpO2 of 96% on BiPAP, pain 2/10, pulse 74, respiratory rate 22. GENERAL: Chronically ill-looking male, in moderate respiratory distress. Afebrile. Anicteric. Acyanotic. HEENT: Normocephalic. BiPAP mask is in place. NECK: JVD noted. CARDIOVASCULAR: Regular rhythm and rate with normal heart sounds 1 and 2. Systolic murmur noted. RESPIRATORY: Fair air entry bilaterally with coarse crackles, especially posteriorly at the bases. Work of breathing is increased. GI: Full, soft, nontender with hypoactive bowel sounds. Healed midline surgical wound with some straps noted. EXTREMITIES: Marked edema of right leg and left upper limbs noted. Left AKA noted. AV fistula with marked aneurysm is noted on the left forearm. HEEL SEAT FLAP STAPLER: Conscious, alert, oriented x3 with appropriate mental status. The patient's cranial nerves 2 through 12 are grossly intact. The patient moves all extremities. DIAGNOSTIC DATA: CBC showed WBC count of 6.0, hemoglobin of 9.2, MCV of 116, platelet of 185. CMP showed sodium 136, potassium 5.2, chloride 99, CO2 of 24, BUN 51, creatinine 4.49, calcium 8.5, glucose 83, magnesium 2.1, phosphorus 6.3, total bilirubin 0.6, AST 23, ALT 21, alkaline phosphatase 143, total protein 7.1, albumin 3.3, globulin 3.8. Cardiac markers showed initial troponin of 0.08, CK-MB of 2.8, and BNP of 8720. Lactic acid is 0.8. IMAGING STUDIES: EKG showed normal sinus rhythm with rate of 76. ST depression in V1 to V4 as well as T-wave inversion in anterior and inferior leads were noted. Chest x-ray showed cardiomegaly as well as bibasilar pleural and parenchymal changes. Lungs are hyperinflated. ASSESSMENT: 1. Acute on chronic respiratory failure. This is felt to be due to acute on chronic diastolic heart failure from fluid overload. 2. Acute on chronic diastolic heart failure. 3. Fluid overload. 4. End-stage renal disease, on hemodialysis Monday, , and Monday. 5. Anemia of chronic kidney disease. 6. Diabetes mellitus. Blood sugars are currently well controlled. 7. Accelerated hypertension: Due to acute respiratory distress. 8. 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 9. Recent abdominal surgery. 10. Constipation. 11. HIV infection, on antiretroviral therapy. 12. Chronic respiratory failure, on home oxygen. PLAN: 1. We will admit the patient to IMCU. 2. We will continue noninvasive respiratory support. 3. We will consult Nephrology for emergent hemodialysis. 4. We will get serial troponin to rule out acute myocardial infarction. 5. We will keep the patient n.p.o. for now. However, after hemodialysis, the patient can be restarted on oral intake, at which point we will also start sliding scale insulin for adequate glycemic control. 6. We will start IV hydralazine p.r.n. for acute elevation in blood pressure. 7. We will restart home antiretroviral therapy as well as antihypertensives. 8. We will confirm home medications and reconcile same. 9. DVT prophylaxis with Lovenox will be provided. CODE STATUS: Full code. Job ID: [id number]
[2019-06-06] MEDS ORDERED: Enoxaparin Sodium 30 MG/0.3 ML SYRINGE ONE (13:11)
[2019-06-06] MEDS ORDERED: Acetaminophen 325 MG TAB ONE (13:11)
[2019-06-06] MEDS: Acetaminophen 325 MG TAB PO PRN (13:37)
[2019-06-06 14:26] LABS: Troponin I 0.079 ng/mL (< 0.028)
[2019-06-06 17:25] LABS: Troponin I 0.063 ng/mL (< 0.028)
[2019-06-06 17:43] VITALS: BMI 23.7
[2019-06-06] MEDS ORDERED: HYDROcodone/Acetaminophen 5/325 mg Tablet PO PRN (20:39)
[2019-06-06] MEDS ORDERED: Gabapentin 300 MG CAP PO SCH (21:00)
[2019-06-06] MEDS: Senokot S 8.6-50 MG TAB PO PRN (21:03)
[2019-06-06] MEDS: HYDROcodone/Acetaminophen 5/325 mg Tablet PO PRN (21:03)
[2019-06-06] MEDS: Nortriptyline HCl 25 MG CAP PO SCH (21:04)
[2019-06-06] MEDS: Raltegravir Potassium 400 MG TAB PO SCH (21:05)
[2019-06-07 05:37] LABS: #Eosinphils 0.2 thou/uL (0.0-0.7); #Monocytes 0.5 thou/uL (0.11-0.59); #Neutrophils 2.3 thou/uL (1.40-6.50); %Eosinophils 4.5 % (0.0-10.0); %Lymphocytes 23.7 % (21.0-51.0); %Monocytes 12.2 % (0.0-10.0); %Neutrophils 58.7 % (42.0-75.0); Hemoglobin 8.5 g/dL (14.0-18.0); Mean Corpuscular HGB CONC 32.9 g/dL (32.0-36.0); Mean Platelet Volume 7.7 fL (7.4-10.4); Platelet Count 155 thou/uL (130-400); RBC Distribution Width 17.6 % (11.5-14.5); Red Blood Cell (RBC) Count 2.25 mill/uL (4.70-6.10)
[2019-06-07 05:47] LABS: Albumin 2.9 g/dL (3.4-4.8); Anion Gap 13 mmol/L (10-20); BUN (Urea Nitrogen) 32 mg/dL (8.4-25.7); BUN/Creatinine Ratio 9.79; Calc. Creatinine Clearance 26 mL/min (70-130); Calcium 8.6 mg/dL (7.8-10.44); Carbon Dioxide 30 mmol/L (23-31); Chloride 98 mmol/L (98-107); Estimated GFR-MDRD 23; Glucose 77 mg/dL (80-115); Phosphorus 5.6 mg/dL (2.3-4.7); Potassium 4.1 mmol/L (3.5-5.1); Sodium 137 mmol/L (136-145)
--- NOTE | 2019-06-07 08:28 | CON ---
DATE OF CONSULTATION: REQUESTING PHYSICIAN: Herbert Gomez Obi, MD REASON FOR CONSULTATION: Need for maintenance hemodialysis. IMPRESSION: 1. End-stage renal disease, on hemodialysis, Monday, , and Monday, so due for dialysis today. 2. Respiratory in the context of pulmonary congestion and fluid overload. 3. Immunocompromised, human immunodeficiency virus, hepatitis C, and recent diagnosis of malignancy. 4. Hypertension. PLAN: 1. The patient to be urgently dialyzed with ultrafiltration as tolerated by hemodynamics. 2. Counseled on the need to show some dietary discretion. HISTORY OF PRESENT ILLNESS: A 63-year-old gentleman with end-stage renal disease, who last dialyzed on Monday, just got discharged from shelter facility on Monday. The patient and presented to the ER with respiratory distress evidence of pulmonary congestion. As a result of these, Renal has been involved to initiate semi-urgent dialysis with ultrafiltration as tolerated by hemodynamics. PAST MEDICAL HISTORY: Significant for end-stage renal disease, hypertension, HIV infection, dyslipidemia, COPD, diabetes mellitus, peripheral artery disease status post left AKA, mitral valve regurgitation, tricuspid regurgitation. MEDICATIONS: Reviewed and as documented on [employer]. FAMILY HISTORY: Not significantly related to presenting illness. SOCIAL HISTORY: No alcohol, no tobacco, no illicit drug use. Remote history of illicit drug use noted. ALLERGIES: TO CIPRO, CLINDAMYCIN, AND PAROXETINE. PHYSICAL EXAMINATION: GENERAL: The patient was found to be in some respiratory distress, on BiPAP. Noted with the following vital signs. VITAL SIGNS: Afebrile, temperature 98, pulse 84, respiratory rate of 21, O2 saturation 98%. HEENT: Remarkable for BiPAP in place. CARDIOVASCULAR: First and second heart sounds are heard. RESPIRATORY: Clear to auscultation. DIGESTIVE: Reveals a benign abdomen with positive bowel sounds. EXTREMITIES: No peripheral edema. SKIN: New gross rash. LYMPHATICS: No peripheral lymphadenopathy. SUMMARY: A 63-year-old gentleman with end-stage renal disease, who presented here with respiratory in the context of fluid overload. Thank you for this consultation. We will follow with you. Job ID: [id number]
[2019-06-07] MEDS ORDERED: FLU VACC QS2019-20(6MOS UP)/PF 60 MCG/0.5 ML SYRINGE IM ONE (09:00)
[2019-06-07] MEDS: Carvedilol 6.25 MG TAB PO SCH ×2 (10:09→17:36)
[2019-06-07] MEDS: Enoxaparin Sodium 30 MG/0.3 ML SYRINGE SC SCH (10:12)
[2019-06-07] MEDS: Raltegravir Potassium 400 MG TAB PO SCH ×2 (10:12→20:13)
[2019-06-07] MEDS: Senokot S 8.6-50 MG TAB PO PRN ×2 (10:13→20:11)
[2019-06-07] MEDS ORDERED: Mineral Oil ENEMA PR SCH ×2 (11:15→11:30)
--- NOTE | 2019-06-07 13:56 | PDOC.HOSPP ---
- Subjective Encounter Date: 06/07/19 Encounter Time: 10:53 Subjective: 63 y/o male with DM, ESRD on HD admitted with acute respiratory distress. Found to have acute on chronic respiratory failure with hypoxia from acute on chronic diastolic failure due fluid overload. Started on BIPAP and later had HD with improvement. Still requiring BIPAP. No fever. No BM in about 1 week. - Objective Vital Signs & Weight: Vital Signs (12 hours) Temp Pulse BP Pulse Ox 06/07/19 11:15 87 06/07/19 11:06 98.2 F 06/07/19 10:09 177/101 H 06/07/19 08:22 65 06/07/19 07:57 100 06/07/19 07:27 98.0 F 06/07/19 04:00 98.6 F Weight Weight 174 lb 4 oz Most Recent Monitor Data Heart Rate from ECG 79 NIBP 177/101 NIBP BP-Mean 126 Respiration from ECG 23 SpO2 100 I&O: 06/06/19 06/07/19 06/08/19 06:59 06:59 06:59 Intake Total 600 Output Total 4900 Balance -4300 Result Diagrams: 06/07/19 05:07 06/07/19 05:07 Additional Labs: Accuchecks 06/06/19 21:30 POC Glucose 94 Hospitalist ROS - Medication Medications: Active Medications Generic Name Dose Route Start Last Admin Trade Name Freq PRN Reason Stop Dose Admin Acetaminophen 650 mg 06/06/19 11:33 06/06/19 13:37 Tylenol PO 650 mg Q4H PRN Administration Headache/Fever/Mild Pain (1-3) Hydrocodone Bitart/Acetaminophen 2 tab 06/06/19 20:39 06/06/19 21:03 [place] 5/325 PO 2 tab Q6H PRN Administration Severe Pain (7-10) Carvedilol 6.25 mg 06/07/19 08:00 06/07/19 10:09 Coreg PO 6.25 mg BID-WM ESME Administration Enoxaparin Sodium 30 mg 06/07/19 09:00 06/07/19 10:12 Lovenox SC 30 mg 0900 ESME Administration Etravirine 200 mg 06/07/19 12:00 06/07/19 12:16 Intelence PO 06/07/19 14:00 200 mg NOW ESME Administration Mineral Oil 1 ml 06/07/19 11:15 06/07/19 12:16 [employer] [place] 06/07/19 15:00 Not Given NOW ESME Nortriptyline HCl 25 mg 06/06/19 21:00 06/06/19 21:04 Pamelor PO 25 mg HS ESME Administration Raltegravir 400 mg 06/06/19 21:00 06/07/19 10:12 Isentress PO 400 mg BID ESME Administration Senna/Docusate Sodium 2 tab 06/06/19 11:33 06/07/19 10:13 Senokot S PO 2 tab BIDPRN PRN Administration Constipation Zidovudine 100 mg 06/07/19 12:00 06/07/19 12:17 Retrovir PO 06/07/19 14:00 100 mg NOW ESME Administration - Exam General Appearance: awake alert Eye: anicteric sclera ENT: normocephalic atraumatic Neck: JVD Heart: RRR, murmur present Respiratory: no wheezes, no ronchi, rales Gastrointestinal: soft, non-tender, normal bowel sounds Extremities - other findings: edema of left UE and R LE noted as well as L AKA Neurological: cranial nerve grossly intact Psychiatric: A&O x 3 Hosp A/P (1) Acute on chronic respiratory failure with hypoxemia Code(s): J96.21 - ACUTE AND CHRONIC RESPIRATORY FAILURE WITH HYPOXIA Status: Acute (2) Acute on chronic diastolic heart failure Code(s): I50.33 - ACUTE ON CHRONIC DIASTOLIC (CONGESTIVE) HEART FAILURE Status : Acute (3) Constipation Code(s): K59.00 - CONSTIPATION, UNSPECIFIED Status: Acute (4) Anemia in chronic kidney disease Code(s): N18.9 - CHRONIC KIDNEY DISEASE, UNSPECIFIED; D63.1 - ANEMIA IN CHRONIC KIDNEY DISEASE Status: Acute (5) Fluid overload Code(s): E87.70 - FLUID OVERLOAD, UNSPECIFIED Status: Acute (6) Hyperkalemia Code(s): E87.5 - HYPERKALEMIA Status: Acute (7) DM (diabetes mellitus) Code(s): E11.9 - TYPE 2 DIABETES MELLITUS WITHOUT COMPLICATIONS Status: Chronic (8) ESRD (end stage renal disease) on dialysis Code(s): N18.6 - END STAGE RENAL DISEASE; Z99.2 - DEPENDENCE ON RENAL DIALYSIS Status: Chronic (9) HIV (human immunodeficiency virus infection) Code(s): B20 - HUMAN IMMUNODEFICIENCY VIRUS [HIV] DISEASE Status: Chronic (10) HTN (hypertension) Code(s): I10 - ESSENTIAL (PRIMARY) HYPERTENSION Status: Chronic Qualifiers: Hypertension type: essential hypertension Qualified Code(s): I10 - Essential (primary) hypertension (11) IVONNE on CPAP Code(s): G47.33 - OBSTRUCTIVE SLEEP APNEA (ADULT) (PEDIATRIC); Z99.89 - DEPENDENCE ON OTHER ENABLING MACHINES AND DEVICES Status: Chronic - Plan Restart antihypertensives and adjust to get adequate BP control. Mineral oil enema x 1 Restart anti retroviral therapy Continue BIPAP and oxygen. wean as tolerated. HD and volume management as per Nephrology
[2019-06-07] MEDS: HYDROcodone/Acetaminophen 5/325 mg Tablet PO PRN (20:08)
[2019-06-07] MEDS: Acetaminophen 325 MG TAB PO PRN (20:11)
[2019-06-07] MEDS: Nortriptyline HCl 25 MG CAP PO SCH (20:12)
[2019-06-07] MEDS: Gabapentin 300 MG CAP PO SCH (20:12)
[2019-06-07] MEDS: Pravastatin Sodium 20 MG TAB PO SCH (20:12)
[2019-06-07] MEDS ORDERED: Pravastatin Sodium 40 MG TAB PO SCH (21:00)
[2019-06-07] MEDS ORDERED: Raltegravir Potassium 400 MG TAB PO SCH (21:00)
[2019-06-07] MEDS ORDERED: FIDAXOMICIN 200 MG PO SCH (21:00)
--- NOTE | 2019-06-08 01:37 | CON ---
DATE OF CONSULTATION: 06/07/2019 HISTORY OF PRESENT ILLNESS: Brant Villeda is a 63-year-old male who presented with shortness of breath. Apparently, he was dialyzed last night and is due for dialysis again today. He has no history that he provides of being noncompliant with fluid restrictions or missing dialysis. He denies having any chest discomfort. PAST MEDICAL HISTORY: Remarkable for 1. Hypertension. 2. HIV. 3. Lipid disorder. 4. Chronic obstructive pulmonary disease. 5. History of home oxygen requirements. 6. Diabetes. 7. History of a left AKA. 8. History of diastolic heart failure. 9. History of mitral regurgitation. 10. History of hemorrhoidectomy. 11. History of a knee replacement prior to his AKA. 12. History of herniorrhaphy, tonsillectomy. 13. History of elbow surgery in the past. SOCIAL HISTORY: Former smoker, nondrinker. Did use drugs in the past. FAMILY HISTORY: Not obtained. ALLERGIES: REPORTS ALLERGIES TO CIPRO, CLINDAMYCIN, PAROXETINE. MEDICATIONS: Prior to admission, he is on 17 medications, these have been reviewed. REVIEW OF SYSTEMS: 10 point review of systems completed, otherwise negative. He says he still short of breath and cannot lie down flat. PHYSICAL EXAMINATION: GENERAL: gillian Villeda is a 63-year-old male who presented with shortness of breath. VITAL SIGNS: Blood pressure this afternoon is 177/101, heart rate 76, respiratory rates in the 20s, oximetry is 97% to 100%. HEENT: Pupils are equal. Sclerae are anicteric. NECK: Supple. No lymphadenopathy. LUNGS: Remarkable for diffuse crackles. HEART: Regular rhythm. S1 and S2 are normal. He has an S4. He has a grade 2/ 6 to 3/6 systolic murmur. ABDOMEN: Soft and nontender. EXTREMITIES: Without clubbing, cyanosis, or edema. LABORATORY DATA: White count 4, hemoglobin 8.5, platelets 155. Sodium 137, potassium 4.1, chloride 98, bicarb 30, BUN 32, creatinine 3.27. Chest radiograph shows pulmonary edema. IMPRESSION: 1. Volume overload and pulmonary edema, possibly secondary to poorly controlled hypertension. 2. Human immunodeficiency virus positive. I doubt his infiltrates are related to human immunodeficiency virus. 3. End-stage renal disease, on dialysis, tentatively scheduled for dialysis again today. We will be happy to follow the other physicians caring for him. This is a 70 minute consult, with greater than 50% of time spent on unit coordinating care. Job ID: [id number] MTDD
[2019-06-08 05:07] LABS: Anisocytosis SLIGHT = 6-15 cells (100X) (0-5/hpf); Band 1 % (5-11); Eosinophils 5 % (0-10); Hemoglobin 8.9 g/dL (14.0-18.0); Lymphocytes 29 % (21-51); MDiff Complete? YES; Macrocytosis MODERATE=16-30 cells (100X) (0-5/hpf); Mean Corpuscular HGB CONC 33.2 g/dL (32.0-36.0); Mean Corpuscular Hemoglobin 38.6 pg (27.0-31.0); Mean Platelet Volume 7.9 fL (7.4-10.4); Monocytes 15 % (0-10); Neutrophil 50 % (42-75); Platelet Count 164 thou/uL (130-400); Platelet Morphology Comment Appears Adequate; RBC Distribution Width 17.6 % (11.5-14.5); Red Blood Cell (RBC) Count 2.31 mill/uL (4.70-6.10); White Blood Cell (WBC) Count 4.5 thou/uL (4.8-10.8)
[2019-06-08] MEDS: HYDROcodone/Acetaminophen 5/325 mg Tablet PO PRN ×2 (05:22→17:19)
[2019-06-08 05:46] LABS: Albumin 3.1 g/dL (3.4-4.8)
[2019-06-08 05:48] LABS: Calcium 8.7 mg/dL (7.8-10.44); Chloride 97 mmol/L (98-107); Potassium 5.2 mmol/L (3.5-5.1); Sodium 135 mmol/L (136-145)
[2019-06-08 05:49] LABS: Glucose 74 mg/dL (80-115)
[2019-06-08 05:50] LABS: Anion Gap 18 mmol/L (10-20); Carbon Dioxide 25 mmol/L (23-31)
[2019-06-08 05:52] LABS: Calc. Creatinine Clearance 20 mL/min (70-130); Estimated GFR-MDRD 17
[2019-06-08 05:53] LABS: BUN (Urea Nitrogen) 48 mg/dL (8.4-25.7); BUN/Creatinine Ratio 11.19
[2019-06-08 07:00] LABS: Phosphorus 7.1 mg/dL (2.3-4.7)
[2019-06-08] MEDS ORDERED: hydrALAZINE 20 MG/ML VIAL SLOW IVP PRN (08:31)
[2019-06-08] MEDS: Enoxaparin Sodium 30 MG/0.3 ML SYRINGE SC SCH (08:39)
[2019-06-08] MEDS ORDERED: Amlodipine 5 MG TAB PO SCH (09:00)
--- NOTE | 2019-06-08 13:25 | PDOC.HOSPP ---
- Subjective Encounter Date: 06/08/19 Encounter Time: 10:21 Subjective: 63 y/o male with DM, ESRD on HD admitted with acute respiratory distress. Found to have acute on chronic respiratory failure with hypoxia from acute on chronic diastolic failure due fluid overload. Treated with BIPAP and HD with improvement. Feeling better with second HD session. - Objective Vital Signs & Weight: Vital Signs (12 hours) Temp Pulse Ox 06/08/19 10:42 97.2 F L 06/08/19 08:00 98 06/08/19 07:22 98.3 F 06/08/19 03:37 96.7 F L Weight Weight 176 lb 12.972 oz Most Recent Monitor Data Heart Rate from ECG 63 NIBP 109/68 NIBP BP-Mean 81 Respiration from ECG 16 SpO2 100 I&O: 06/07/19 06/08/19 06/09/19 06:59 06:59 06:59 Intake Total 600 1780 Output Total 4900 3500 Balance -4300 -1720 Result Diagrams: 06/08/19 03:58 06/08/19 05:27 Additional Labs: Accuchecks 06/08/19 06/07/19 06/07/19 05:52 20:04 16:39 POC Glucose 76 106 94 Hospitalist ROS - Medication Medications: Active Medications Generic Name Dose Route Start Last Admin Trade Name Freq PRN Reason Stop Dose Admin Acetaminophen 650 mg 06/06/19 11:33 06/07/19 20:11 Tylenol PO 650 mg Q4H PRN Administration Headache/Fever/Mild Pain (1-3) Hydrocodone Bitart/Acetaminophen 2 tab 06/06/19 20:39 06/08/19 05:22 [place] 5/325 PO 2 tab Q6H PRN Administration Severe Pain (7-10) Carvedilol 6.25 mg 06/07/19 08:00 06/07/19 17:36 Coreg PO 6.25 mg BID-WM ESME Administration Enoxaparin Sodium 30 mg 06/07/19 09:00 06/08/19 08:39 Lovenox SC Not Given 0900 ESME Etravirine 200 mg 06/07/19 18:00 06/07/19 17:37 Intelence PO 200 mg BID-PC ESME Administration Gabapentin 300 mg 06/07/19 21:00 06/07/19 20:12 Neurontin PO 300 mg HS ESME Administration Nortriptyline HCl 25 mg 06/06/19 21:00 06/07/19 20:12 Pamelor PO 25 mg HS ESME Administration Pravastatin Sodium 20 mg 06/07/19 21:00 06/07/19 20:12 Pravachol PO 20 mg HS ESME Administration Raltegravir 400 mg 06/06/19 21:00 06/07/19 20:13 Isentress PO 400 mg BID ESME Administration Senna/Docusate Sodium 2 tab 06/06/19 11:33 06/07/19 20:11 Senokot S PO 2 tab BIDPRN PRN Administration Constipation Zidovudine 100 mg 06/07/19 15:00 06/07/19 20:13 Retrovir PO 100 mg TID ESME Administration - Exam General Appearance: awake alert General - other findings: chronically ill looking Eye: anicteric sclera ENT: normocephalic atraumatic Neck: supple Heart: RRR Respiratory: no wheezes, no ronchi Respiratory - other findings: fair air entry bilaterally with few bibasal crackles Gastrointestinal: soft, non-tender, non-distended, normal bowel sounds Extremities: no edema Extremities - other findings: L AKA Neurological: cranial nerve grossly intact Psychiatric: A&O x 3 Hosp A/P (1) Acute on chronic respiratory failure with hypoxemia Code(s): J96.21 - ACUTE AND CHRONIC RESPIRATORY FAILURE WITH HYPOXIA Status: Acute (2) Acute on chronic diastolic heart failure Code(s): I50.33 - ACUTE ON CHRONIC DIASTOLIC (CONGESTIVE) HEART FAILURE Status : Acute (3) Constipation Code(s): K59.00 - CONSTIPATION, UNSPECIFIED Status: Acute (4) Anemia in chronic kidney disease Code(s): N18.9 - CHRONIC KIDNEY DISEASE, UNSPECIFIED; D63.1 - ANEMIA IN CHRONIC KIDNEY DISEASE Status: Acute (5) Fluid overload Code(s): E87.70 - FLUID OVERLOAD, UNSPECIFIED Status: Acute (6) Hyperkalemia Code(s): E87.5 - HYPERKALEMIA Status: Acute (7) DM (diabetes mellitus) Code(s): E11.9 - TYPE 2 DIABETES MELLITUS WITHOUT COMPLICATIONS Status: Chronic (8) ESRD (end stage renal disease) on dialysis Code(s): N18.6 - END STAGE RENAL DISEASE; Z99.2 - DEPENDENCE ON RENAL DIALYSIS Status: Chronic (9) HIV (human immunodeficiency virus infection) Code(s): B20 - HUMAN IMMUNODEFICIENCY VIRUS [HIV] DISEASE Status: Chronic (10) HTN (hypertension) Code(s): I10 - ESSENTIAL (PRIMARY) HYPERTENSION Status: Chronic Qualifiers: Hypertension type: essential hypertension Qualified Code(s): I10 - Essential (primary) hypertension (11) IVONNE on CPAP Code(s): G47.33 - OBSTRUCTIVE SLEEP APNEA (ADULT) (PEDIATRIC); Z99.89 - DEPENDENCE ON OTHER ENABLING MACHINES AND DEVICES Status: Chronic (12) Physical deconditioning Code(s): R53.81 - OTHER MALAISE Status: Acute (13) Moderate protein malnutrition Code(s): E44.0 - MODERATE PROTEIN-CALORIE MALNUTRITION Status: Acute - Plan continue antihypertensives and monitor for hypotension Continue anti retroviral therapy Continue BIPAP and oxygen. Patient uses oxygen and CPAP at home. HD and volume management as per Nephrology Start [facility] Transfer to tele PT/OT eval and treat
[2019-06-08] MEDS: Raltegravir Potassium 400 MG TAB PO SCH ×2 (13:42→21:23)
[2019-06-08] MEDS: Aspirin 325 MG TAB PO SCH (13:43)
[2019-06-08] MEDS: Lisinopril 20 MG TAB PO SCH (13:44)
[2019-06-08] MEDS: Carvedilol 6.25 MG TAB PO SCH ×2 (13:44→17:20)
--- NOTE | 2019-06-08 20:16 | PRG ---
DATE OF SERVICE: 06/08/2019 SUBJECTIVE: Brant Villeda is being dialyzed and evaluated him today. He said he is feeling better. OBJECTIVE: VITAL SIGNS: Blood pressure 151/89, heart rate was in the 70s, respiratory rate is in the teens LUNGS: Clear anteriorly. Crackles at his bases posteriorly. HEART: Regular rhythm. ABDOMEN: Soft. LABORATORY DATA: White count 4.5, hemoglobin 8.9, platelets 164. Sodium 135, potassium 5.2, chloride 97, bicarb 25, BUN 48, creatinine 4.29. IMPRESSION: 1. End-stage renal disease, being dialyzed. 2. Volume overload. We will repeat a chest x-ray tomorrow after three consecutive days of dialysis. 3. Hypertension. 4. Human immunodeficiency virus positive on anti-retroviral therapy. 5. Reported history of chronic obstructive pulmonary disease. 6. Chronic respiratory failure with hypoxemia on home oxygen. 7. Diabetes. 8. History of diastolic heart failure with mitral regurgitation. PLAN: Continue supportive care. Job ID: [id number]
[2019-06-08] MEDS: Gabapentin 300 MG CAP PO SCH (21:23)
[2019-06-08] MEDS: Pravastatin Sodium 20 MG TAB PO SCH (21:23)
[2019-06-08] MEDS: Nortriptyline HCl 25 MG CAP PO SCH (21:34)
--- NOTE | 2019-06-09 10:16 | PDOC.HOSPP ---
- Subjective Encounter Date: 06/09/19 Encounter Time: 10:15 Subjective: Doing well - Objective Vital Signs & Weight: Vital Signs (12 hours) Temp Pulse Resp BP Pulse Ox 06/09/19 08:40 95 06/09/19 08:39 98.3 F 82 16 172/98 H 88 L 06/09/19 04:16 98.7 F 70 16 172/89 H 93 L 06/09/19 02:38 65 Weight Weight 164 lb 3.91 oz Most Recent Monitor Data Heart Rate from ECG 75 NIBP 151/89 NIBP BP-Mean 109 Respiration from ECG 18 SpO2 98 I&O: 06/08/19 06/09/19 06/10/19 06:59 06:59 06:59 Intake Total 1780 780 Output Total 3500 4000 Balance -1720 -3220 Result Diagrams: 06/08/19 03:58 06/08/19 05:27 Hospitalist ROS - Medication Medications: Active Medications Generic Name Dose Route Start Last Admin Trade Name Freq PRN Reason Stop Dose Admin Acetaminophen 650 mg 06/06/19 11:33 06/07/19 20:11 Tylenol PO 650 mg Q4H PRN Administration Headache/Fever/Mild Pain (1-3) Hydrocodone Bitart/Acetaminophen 2 tab 06/06/19 20:39 06/08/19 17:19 [place] 5/325 PO 2 tab Q6H PRN Administration Severe Pain (7-10) Aspirin 325 mg 06/08/19 09:00 06/08/19 13:43 Aspirin PO 325 mg DAILY ESME Administration Carvedilol 6.25 mg 06/07/19 08:00 06/08/19 17:20 Coreg PO 6.25 mg BID-WM ESME Administration Enoxaparin Sodium 30 mg 06/07/19 09:00 06/08/19 08:39 Lovenox SC Not Given 09 ESME Etravirine 200 mg 06/07/19 18:00 06/08/19 17:21 Intelence PO 200 mg BID-PC ESME Administration Gabapentin 300 mg 06/07/19 21:00 06/08/19 21:23 Neurontin PO 300 mg HS ESME Administration Lisinopril 40 mg 06/08/19 09:00 06/08/19 13:44 Zestril PO 40 mg DAILY ESME Administration Nortriptyline HCl 25 mg 06/06/19 21:00 06/08/19 21:34 Pamelor PO 25 mg HS ESME Administration Pravastatin Sodium 20 mg 06/07/19 21:00 06/08/19 21:23 Pravachol PO 20 mg HS ESME Administration Raltegravir 400 mg 06/06/19 21:00 06/08/19 21:23 Isentress PO 400 mg BID ESME Administration Senna/Docusate Sodium 2 tab 06/06/19 11:33 06/07/19 20:11 Senokot S PO 2 tab BIDPRN PRN Administration Constipation Zidovudine 100 mg 06/07/19 15:00 06/08/19 21:24 Retrovir PO 100 mg TID ESME Administration - Exam General Appearance: NAD, awake alert, ill appearing ENT: normocephalic atraumatic, no oropharyngeal lesions, moist mucosa, dry oral mucosa Neck: supple, symmetric, no JVD, no thyromegaly, no lymphadenopathy, no carotid bruit, JVD Heart: RRR, no murmur, no gallops, no rubs, normal peripheral pulses, irregular , diminshed peripheral pulses, murmur present, II/IV, III/IV Respiratory: CTAB, no wheezes, no rales, no ronchi, normal chest expansion, no tachypnea, normal percussion, rales, rhonchi, tachypneic, wheezes Gastrointestinal: soft, non-tender, non-distended, normal bowel sounds, no palpable masses, no hepatomegaly, no splenomegaly, no bruit, no guarding, no rigidity, tender to palpation, distended, diminished bowl sounds, voluntary guarding Hosp A/P (1) Acute on chronic respiratory failure with hypoxemia Code(s): J96.21 - ACUTE AND CHRONIC RESPIRATORY FAILURE WITH HYPOXIA Status: Acute (2) Physical deconditioning Code(s): R53.81 - OTHER MALAISE Status: Acute - Plan plan discussed w/ family, PT/OT, social services technician
[2019-06-09] MEDS: Carvedilol 6.25 MG TAB PO SCH ×2 (10:52→18:11)
[2019-06-09] MEDS: Lisinopril 20 MG TAB PO SCH (10:52)
[2019-06-09] MEDS: Aspirin 325 MG TAB PO SCH (10:52)
[2019-06-09] MEDS: Raltegravir Potassium 400 MG TAB PO SCH ×2 (10:52→21:17)
[2019-06-09] MEDS: Enoxaparin Sodium 30 MG/0.3 ML SYRINGE SC SCH (10:53)
--- NOTE | 2019-06-09 10:55 | RAD ---
PORTABLE CHEST 1 VIEW: Date: 06/09/19 Time: 0739 hours HISTORY: Dyspnea. FINDINGS/IMPRESSION: Comparison made with exam of 06/06/19. Right-sided Port-A-Cath remains in place. The heart is enlarged. There is consolidation/atelectatic c hanges in the left lung base with accompanying effusion. There is mild prominence of pulmonary vascul arity. Right basilar infiltrate is again noted. POS: [facility]
[2019-06-09] MEDS: HYDROcodone/Acetaminophen 5/325 mg Tablet PO PRN ×2 (15:35→21:24)
--- NOTE | 2019-06-09 16:38 | PRG ---
DATE OF SERVICE: 06/09/2019 SUBJECTIVE: Brant Villeda says he is feeling better. He has a CPAP at home, but says it is broken. OBJECTIVE: VITAL SIGNS: He is afebrile, heart rate is 80, respiratory rate is 18, oximetry is 95% on 2 L, blood pressure still elevated at 172/98. LUNGS: Clear. HEART: Regular rhythm. ABDOMEN: Soft. DIAGNOSTIC IMPRESSION: Chest radiograph has slightly improved. IMPRESSION: 1. Respiratory distress secondary to volume overload. 2. Hypertension, poorly controlled. May contribute to pulmonary edema he was experiencing on admission. He says he was adherent to his fluid and salt restriction in compliant with dialysis. 3. I doubt his pulmonary infiltrates are infectious given his dramatic improvement with emergent dialysis. His blood pressure needs to be controlled for discharge. 4. We need to see what is necessary to get him a new CPAP device at home. 5. We will continue his anti-retroviral therapy. I do not feel that his pulmonary infiltrates are related to his HIV. Job ID: [id number]
[2019-06-09] MEDS: Lorazepam 0.5 MG TAB PO PRN ×2 (18:11→23:57)
[2019-06-09] MEDS ORDERED: Nitroglycerin 2% Ointment 1 INCH/1 GM Packet ONE (18:42)
[2019-06-09] MEDS ORDERED: Nitroglycerin 2% Ointment 1 INCH/1 GM Packet TOP SCH (19:00)
[2019-06-09] MEDS: Gabapentin 300 MG CAP PO SCH (21:16)
[2019-06-09] MEDS: Pravastatin Sodium 20 MG TAB PO SCH (21:16)
[2019-06-09] MEDS: Senokot S 8.6-50 MG TAB PO PRN (21:23)
[2019-06-09] MEDS: Nortriptyline HCl 25 MG CAP PO SCH (22:03)
[2019-06-10] MEDS: HYDROcodone/Acetaminophen 5/325 mg Tablet PO PRN ×2 (04:12→10:14)
[2019-06-10] MEDS: Carvedilol 6.25 MG TAB PO SCH ×2 (08:30→16:22)
[2019-06-10] MEDS: Lisinopril 20 MG TAB PO SCH (08:30)
[2019-06-10] MEDS: Enoxaparin Sodium 30 MG/0.3 ML SYRINGE SC SCH (08:31)
[2019-06-10] MEDS: Raltegravir Potassium 400 MG TAB PO SCH ×2 (08:31→21:04)
[2019-06-10] MEDS: Aspirin 325 MG TAB PO SCH (08:31)
[2019-06-10] MEDS: Senokot S 8.6-50 MG TAB PO PRN (10:14)
[2019-06-10] MEDS: Lorazepam 0.5 MG TAB PO PRN ×2 (10:14→16:20)
--- NOTE | 2019-06-10 10:14 | PRG ---
DATE OF SERVICE: 06/09/2019 CONSULTING PHYSICIAN: Bruce Archuleta MD. REQUESTING PHYSICIAN: Herbert Gomez Obi, MD. PHYSICAL EXAMINATION: VITAL SIGNS: Blood pressure , pulse 100. HEENT: Unremarkable. CARDIOVASCULAR: First and second heart sounds were heard. RESPIRATORY: Some rales. DIGESTIVE: Benign abdomen. EXTREMITIES: No peripheral edema. SKIN: No new gross rash. LYMPHATICS: No peripheral lymphadenopathy. IMPRESSION: 1. Respiratory failure in the context of congestive heart failure. 2. End-stage renal disease. PLAN: 1. The patient to receive dialysis ultrafiltration, therefore the patient ultrafiltration only. for feeding. 2. Further management will be dependent on the clinical course. Job ID: [id number]
--- NOTE | 2019-06-10 13:43 | PRG ---
DATE OF SERVICE: 06/10/2019 SUBJECTIVE: The patient is seen and examined, seems to be little bit of short of breath. The patient's main shortness of breath seems to be stemming from anxiety in addition to pulmonary congestion. Noted with the following vital signs. OBJECTIVE: VITAL SIGNS: Afebrile and temperature 98, pulse 69, respiratory rate of 18, O2 saturation of 100% on CPAP with a blood pressure of 184/107. HEENT: Unremarkable. CARDIOVASCULAR: First and second heart sounds are heard. RESPIRATORY: Clear to auscultation anteriorly. DIGESTIVE: Revealed a benign abdomen. EXTREMITIES: No peripheral edema. SKIN: No new gross rash. LYMPHATICS: No peripheral lymphadenopathy. IMPRESSION: 1. End-stage renal disease, on hemodialysis. 2. Respiratory failure in the context of pulmonary congestion and fluid overload. 3. Human immunodeficiency virus infection, on treatment. PLAN: 1. The patient to be given extra dialysis today with emphasis on ultrafiltration. Tomorrow, the patient to continue with regular schedule dialysis of Monday, , Monday with ultrafiltration as tolerated by hemodynamics. 2. Further management will be dependent on the clinical course. 3. Disposition planning per primary team. Job ID: [id number]
--- NOTE | 2019-06-10 13:52 | PRG ---
DATE OF SERVICE: 06/09/2019 The patient is seen and examined. OBJECTIVE: VITAL SIGNS: Blood pressure 157/94, O2 saturation 98%, and heart rate of 75. HEENT: Examination unremarkable. CARDIOVASCULAR System: First and second heart sounds were heard. RESPIRATORY SYSTEM: Clear to auscultation. DIGESTIVE: Benign abdomen. EXTREMITIES: No peripheral edema. IMPRESSION: 1. End-stage renal disease, on dialysis. 2. Respiratory failure in the context of . PLAN: 1. The patient to continue with dialysis according to schedule 2. Further management to be dependent on the clinical course. Job ID: [id number]
--- NOTE | 2019-06-10 13:55 | PRG ---
DATE OF SERVICE: 06/09/2019 SUBJECTIVE: The patient is seen and examined and seems to be doing much better. OBJECTIVE: VITAL SIGNS: Afebrile, temperature 98.7, pulse 70, respiratory rate 16, O2 saturation is 95% with blood pressure of 117/89. HEENT: Unremarkable. CARDIOVASCULAR: First and second heart sounds were heard. RESPIRATORY: Clear to auscultation. DIGESTIVE: Revealed benign abdomen. Positive bowel sounds. EXTREMITIES: No peripheral edema. SKIN: No new gross rash. LYMPHATICS: No peripheral lymphadenopathy. IMPRESSION: 1. End-stage renal disease, on hemodialysis. 2. respiratory failure. 3. . PLAN: 1. The patient avoid potentially nephrotoxic agents. 2. hemodialysis today. Job ID: [id number]
--- NOTE | 2019-06-10 14:45 | PDOC.HOSPP ---
- Subjective Encounter Date: 06/10/19 Encounter Time: 14:44 Subjective: continue to improve - Objective Vital Signs & Weight: Vital Signs (12 hours) Temp Pulse Resp BP BP Pulse Ox 06/10/19 12:20 73 17 139/91 H 06/10/19 08:26 98.1 F 84 17 184/107 H 96 06/10/19 04:00 98 F 69 18 162/84 H 100 Weight Weight 170 lb 13.732 oz Most Recent Monitor Data Heart Rate from ECG 75 NIBP 151/89 NIBP BP-Mean 109 Respiration from ECG 18 SpO2 98 I&O: 06/09/19 06/10/19 06/11/19 06:59 06:59 06:59 Intake Total 780 480 Output Total 4000 0 Balance -3220 480 Result Diagrams: 06/08/19 03:58 06/08/19 05:27 Additional Labs: Accuchecks 06/10/19 12:21 POC Glucose 113 H Hospitalist ROS - Medication Medications: Active Medications Generic Name Dose Route Start Last Admin Trade Name Freq PRN Reason Stop Dose Admin Acetaminophen 650 mg 06/06/19 11:33 06/07/19 20:11 Tylenol PO 650 mg Q4H PRN Administration Headache/Fever/Mild Pain (1-3) Hydrocodone Bitart/Acetaminophen 2 tab 06/06/19 20:39 06/10/19 10:14 [place] 5/325 PO 2 tab Q6H PRN Administration Severe Pain (7-10) Aspirin 325 mg 06/08/19 09:00 06/10/19 08:31 Aspirin PO 325 mg DAILY ESME Administration Carvedilol 6.25 mg 06/07/19 08:00 06/10/19 08:30 Coreg PO 6.25 mg BID-WM ESME Administration Enoxaparin Sodium 30 mg 06/07/19 09:00 06/10/19 08:31 Lovenox SC Not Given 0900 ESME Etravirine 200 mg 06/07/19 18:00 06/10/19 09:20 Intelence PO 200 mg BID-PC ESME Administration Gabapentin 300 mg 06/07/19 21:00 06/09/19 21:16 Neurontin PO 300 mg HS ESME Administration Lisinopril 40 mg 06/08/19 09:00 06/10/19 08:30 Zestril PO 40 mg DAILY ESME Administration Lorazepam 0.5 mg 06/09/19 16:43 06/10/19 10:14 Ativan PO 0.5 mg Q6H PRN Administration Anxiety Nortriptyline HCl 25 mg 06/06/19 21:00 06/09/19 22:03 Pamelor PO 25 mg HS ESME Administration Pravastatin Sodium 20 mg 06/07/19 21:00 06/09/19 21:16 Pravachol PO 20 mg HS ESME Administration Raltegravir 400 mg 06/06/19 21:00 06/10/19 08:31 Isentress PO 400 mg BID ESME Administration Senna/Docusate Sodium 2 tab 06/06/19 11:33 06/10/19 10:14 Senokot S PO 2 tab BIDPRN PRN Administration Constipation Zidovudine 100 mg 06/07/19 15:00 06/10/19 14:18 Retrovir PO 100 mg TID ESME Administration - Exam General Appearance: NAD, awake alert, ill appearing Eye: PERRL, anicteric sclera, scleral icterus ENT: normocephalic atraumatic, no oropharyngeal lesions, moist mucosa, dry oral mucosa Neck: supple, symmetric, no JVD, no thyromegaly, no lymphadenopathy, no carotid bruit, JVD Heart: RRR, no murmur, no gallops, no rubs, normal peripheral pulses, irregular , diminshed peripheral pulses, murmur present, II/IV, III/IV Respiratory: CTAB, no wheezes, no rales, no ronchi, normal chest expansion, no tachypnea, normal percussion, rales, rhonchi, tachypneic, wheezes Gastrointestinal: soft, non-tender, non-distended, normal bowel sounds, no palpable masses, no hepatomegaly, no splenomegaly, no bruit, no guarding, no rigidity, tender to palpation, distended, diminished bowl sounds, voluntary guarding Hosp A/P (1) Acute on chronic respiratory failure with hypoxemia Code(s): J96.21 - ACUTE AND CHRONIC RESPIRATORY FAILURE WITH HYPOXIA Status: Acute (2) Physical deconditioning Code(s): R53.81 - OTHER MALAISE Status: Acute - Plan D?C planning. Apreciate nephrology input
[2019-06-10] MEDS: Pravastatin Sodium 20 MG TAB PO SCH (21:04)
[2019-06-10] MEDS: Nortriptyline HCl 25 MG CAP PO SCH (21:04)
[2019-06-10] MEDS: Gabapentin 300 MG CAP PO SCH (21:05)
[2019-06-11] MEDS: HYDROcodone/Acetaminophen 5/325 mg Tablet PO PRN ×2 (01:48→13:10)
[2019-06-11] MEDS: Lorazepam 0.5 MG TAB PO PRN ×2 (01:51→13:10)
--- NOTE | 2019-06-11 10:17 | PRG ---
DATE OF SERVICE: 06/11/2019 SUBJECTIVE: The patient is seen and examined on dialysis. Noted with the following vital signs. OBJECTIVE: VITAL SIGNS: Afebrile, temperature 97.8, pulse 85, respiratory rate of 20, O2 saturation of 93% with blood pressure 138/80. HEENT: Unremarkable. CARDIOVASCULAR: First and second heart sounds were heard. RESPIRATORY: Clear to auscultation. DIGESTIVE: Revealed benign abdomen. Positive bowel sounds. EXTREMITIES: No peripheral edema. SKIN: No new gross rash. LYMPHATICS: No peripheral lymphadenopathy. IMPRESSION: 1. End-stage renal disease, on hemodialysis. 2. Respiratory failure in the context of hypervolemia. 3. Human immunodeficiency virus infection. PLAN: 1. The patient is to undergo hemodialysis with ultrafiltration of about 6 L today. 2. Further management to be dependent on the clinical course including the disposition plan and we will defer to the primary team. Job ID: [id number]
[2019-06-11 12:17] VITALS: TEMP 98.4
[2019-06-11] MEDS: Lisinopril 20 MG TAB PO SCH (12:18)
[2019-06-11] MEDS: Aspirin 325 MG TAB PO SCH (12:18)
[2019-06-11] MEDS: Carvedilol 6.25 MG TAB PO SCH ×2 (12:18→16:51)
[2019-06-11] MEDS: Raltegravir Potassium 400 MG TAB PO SCH (12:19)
[2019-06-11] MEDS: Enoxaparin Sodium 30 MG/0.3 ML SYRINGE SC SCH ×2 (12:19→12:21)
--- NOTE | 2019-06-11 14:35 | PDOC.HOSPP ---
- Subjective Encounter Date: 06/11/19 Encounter Time: 14:34 Subjective: no new complaints - Objective Vital Signs & Weight: Vital Signs (12 hours) Temp Pulse Resp BP Pulse Ox 06/11/19 12:14 98.4 F 88 18 135/77 97 06/11/19 04:00 97.8 F 85 20 138/80 93 L Weight Weight 172 lb 13.478 oz Most Recent Monitor Data Heart Rate from ECG 75 NIBP 151/89 NIBP BP-Mean 109 Respiration from ECG 18 SpO2 98 I&O: 06/10/19 06/11/19 06/12/19 06:59 06:59 06:59 Intake Total 480 Output Total 0 Balance 480 Result Diagrams: 06/08/19 03:58 06/08/19 05:27 Hospitalist ROS - Medication Medications: Active Medications Generic Name Dose Route Start Last Admin Trade Name Freq PRN Reason Stop Dose Admin Acetaminophen 650 mg 06/06/19 11:33 06/07/19 20:11 Tylenol PO 650 mg Q4H PRN Administration Headache/Fever/Mild Pain (1-3) Hydrocodone Bitart/Acetaminophen 1 tab 06/06/19 20:39 06/10/19 16:21 [place] 5/325 PO 1 tab Q6H PRN Administration Moderate Pain (4-6) Hydrocodone Bitart/Acetaminophen 2 tab 06/06/19 20:39 06/11/19 13:10 [place] 5/325 PO 2 tab Q6H PRN Administration Severe Pain (7-10) Albuterol/Ipratropium 3 ml 06/09/19 16:01 06/10/19 21:50 Duoneb NEB 3 ml [id number] PRN Administration SOB &/or Wheezing Aspirin 325 mg 06/08/19 09:00 06/11/19 12:18 Aspirin PO 325 mg DAILY ESME Administration Carvedilol 6.25 mg 06/07/19 08:00 06/11/19 12:18 Coreg PO 6.25 mg BID-WM ESME Administration Enoxaparin Sodium 30 mg 06/07/19 09:00 06/11/19 12:21 Lovenox SC Not Given 0900 ESME Etravirine 200 mg 06/07/19 18:00 06/11/19 12:19 Intelence PO 200 mg BID-PC ESME Administration Gabapentin 300 mg 06/07/19 21:00 06/10/19 21:05 Neurontin PO 300 mg HS ESME Administration Hydralazine HCl 10 mg 06/08/19 08:31 06/10/19 17:28 Apresoline SLOW IVP 10 mg Q4H PRN Administration Hypertension Lisinopril 40 mg 06/08/19 09:00 06/11/19 12:18 Zestril PO 40 mg DAILY ESME Administration Lorazepam 0.5 mg 06/09/19 16:43 06/11/19 13:10 Ativan PO 0.5 mg Q6H PRN Administration Anxiety Nortriptyline HCl 25 mg 06/06/19 21:00 06/10/19 21:04 Pamelor PO 25 mg HS ESME Administration Pravastatin Sodium 20 mg 06/07/19 21:00 06/10/19 21:04 Pravachol PO 20 mg HS ESME Administration Raltegravir 400 mg 06/06/19 21:00 06/11/19 12:19 Isentress PO 400 mg BID ESME Administration Senna/Docusate Sodium 2 tab 06/06/19 11:33 06/10/19 10:14 Senokot S PO 2 tab BIDPRN PRN Administration Constipation Zidovudine 100 mg 06/07/19 15:00 06/11/19 12:19 Retrovir PO 100 mg TID ESME Administration - Exam General Appearance: NAD, awake alert, ill appearing Eye: PERRL, anicteric sclera, scleral icterus Neck: supple, symmetric, no JVD, no thyromegaly, no lymphadenopathy, no carotid bruit, JVD Heart: RRR, no murmur, no gallops, no rubs, normal peripheral pulses, irregular , diminshed peripheral pulses, murmur present, II/IV, III/IV Respiratory: CTAB, no wheezes, no rales, no ronchi, normal chest expansion, no tachypnea, normal percussion, rales, rhonchi, tachypneic, wheezes Gastrointestinal: soft, non-tender, non-distended, normal bowel sounds, no palpable masses, no hepatomegaly, no splenomegaly, no bruit, no guarding, no rigidity, tender to palpation, distended, diminished bowl sounds, voluntary guarding Extremities: no cyanosis, no clubbing, no edema, 1+ LE edema, 2+ LE edema, clubbing Skin: normal turgor, no lesions, no rashes, tenting Neurological: cranial nerve grossly intact, normal sensation to touch, no weakness, no focal deficits, no new deficit, facial droop, hemiplegia, speech deficit, vision deficit Musculoskeletal: normal tone, normal strength, no muscle wasting, generalized weakness, diffuse muscle atrophy Psychiatric: normal affect, normal behavior, A&O x 3, oriented to person, oriented to place, oriented to time, not oriented, flat affect, somnolent, lethargic Hosp A/P (1) Acute on chronic respiratory failure with hypoxemia Code(s): J96.21 - ACUTE AND CHRONIC RESPIRATORY FAILURE WITH HYPOXIA Status: Acute (2) Physical deconditioning Code(s): R53.81 - OTHER MALAISE Status: Acute - Plan D?C planning. Apreciate nephrology input. continue care. D?C planning
[2019-06-11 15:12] VITALS: BP 147/93
--- NOTE | 2019-06-12 01:55 | DIS ---
DATE OF ADMISSION: 06/06/2019 DATE OF DISCHARGE: 06/11/2019 ADMITTING DIAGNOSIS: Fluid overload with acute respiratory failure, on hemodialysis. FINAL DIAGNOSIS: Respiratory failure, resolved. Has been on hemodialysis. CONSULTANTS ON THE CASE: Dr. Barrera for Nephrology, Dr. Lico Hardy for Pulmonology and Critical Care. HOSPITAL COURSE: The patient was admitted for acute respiratory failure, placed in IMCU, subsequently underwent regiment of hemodialysis with the help of a diesel mechanic apprentice. The patient's symptoms started improving. Pulmonology transferred the patient eventually to telemetry. From there, the patient's symptoms improved. Physical therapy continued. As the patient's symptoms improved, it has been concluded to transfer the patient back to home with home health care. [facility]. DISCHARGE INSTRUCTIONS: Discharge the patient home. FOLLOWUP CARE: [facility] and specialist as scheduled. DIET: Cardiac prudent. ACTIVITY: As tolerated. Hemodialysis clinic as scheduled. DISCHARGE MEDICATIONS: As per reconciliation sheet. Job ID: [id number]
== END 2019-06-11 17:34 | disposition home health service (06) | DRG 291 ==
LOC: ERS 06:40 → ERHOLD 10:02 → IMCU/EMU 17:32 → 2NO 06-08 17:11
PROVIDERS: ADMIT Internal Medicine Nephrology; ATTEND Internal Medicine Nephrology
PROC: 5A1D70Z Performance of Urinary Filtration, Intermittent, Less than 6 Hours Per Day (ICD-10-PCS; principal; 2019-06-06)
PROC: 5A09357 Assistance with Respiratory Ventilation, Less than 24 Consecutive Hours, Continuous Positive Airway Pressure (ICD-10-PCS; 2019-06-06)
PROC: 3E02340 Introduction of Influenza Vaccine into Muscle, Percutaneous Approach (ICD-10-PCS; 2019-06-06)
DX: I13.2 Hypertensive heart and chronic kidney disease with heart failure and with stage 5 chronic kidney disease, or end stage renal disease (principal); I50.33 Acute on chronic diastolic (congestive) heart failure; N18.6 End stage renal disease; J96.21 Acute and chronic respiratory failure with hypoxia; E44.0 Moderate protein-calorie malnutrition; Z21 Asymptomatic human immunodeficiency virus [HIV] infection status; Z23 Encounter for immunization; E78.5 Hyperlipidemia, unspecified; E11.22 Type 2 diabetes mellitus with diabetic chronic kidney disease; E11.51 Type 2 diabetes mellitus with diabetic peripheral angiopathy without gangrene; I08.1 Rheumatic disorders of both mitral and tricuspid valves; D63.1 Anemia in chronic kidney disease; B19.20 Unspecified viral hepatitis C without hepatic coma; K59.00 Constipation, unspecified; G47.33 Obstructive sleep apnea (adult) (pediatric); Z96.652 Presence of left artificial knee joint; J44.9 Chronic obstructive pulmonary disease, unspecified; E87.5 Hyperkalemia; Z99.2 Dependence on renal dialysis; Z89.612 Acquired absence of left leg above knee; Z88.1 Allergy status to other antibiotic agents; Z88.8 Allergy status to other drugs, medicaments and biological substances; Z79.82 Long term (current) use of aspirin; Z79.899 Other long term (current) drug therapy; Z68.22 Body mass index [BMI] 22.0-22.9, adult; Z88.0 Allergy status to penicillin
CPT/HCPCS: 36415; 36416; 71045; 80053; 80069; 82553; 83605; 83735; 83880; 84100; 84484; 85025; 85379; 87040; 93005; 93798; 94640; 94660; 96372; 96374; J0360; J1650; J7620

== ENCOUNTER 2019-06-15 16:42 | Emergency (ER) | payer MEDICARE ==
--- NOTE | 2019-06-15 17:51 | RAD ---
KUB AND RIGHT LATERAL DECUBITUS VIEWS OF THE ABDOMEN: 06/15/19 HISTORY: Constipation. Last bowel movement at least ten days ago. There is air within some slightly distended small bowel loops but also air within the colon. No free air demonstrated. I do not see any signs of fecal impaction. Postop cholecystectomy changes are seen. IMPRESSION: Some mildly distended small bowel loops but also with air within the colon. No free air demonstrated. If small bowel obstruction is clinically suspected, further evaluation with CT would be suggested. S ome questionable wall thickening to some of the mid abdominal small bowel loops. POS: [facility]
== END 2019-06-15 20:00 | disposition home or self-care (01) ==
LOC: ERS 16:42
DX: K59.00 Constipation, unspecified (principal); J44.9 Chronic obstructive pulmonary disease, unspecified; B20 Human immunodeficiency virus [HIV] disease; E78.5 Hyperlipidemia, unspecified; F41.9 Anxiety disorder, unspecified; Z87.891 Personal history of nicotine dependence; Z79.899 Other long term (current) drug therapy; Z79.891 Long term (current) use of opiate analgesic; Z79.51 Long term (current) use of inhaled steroids
CPT/HCPCS: 74019

== ENCOUNTER 2019-07-13 08:08 | Inpatient (IN) | payer MEDICARE ==
--- NOTE | 2019-07-13 09:03 | CT ---
CT OF THE BRAIN WITHOUT CONTRAST: INDICATION: History of syncopal episode where the patient woke up on the floor. COMPARISON: Prior CT of the brain dated 09/26/2018. FINDINGS: There is moderate prominent generalized cerebral and cerebellar atrophy. There is moderate chronic s mall-vessel white matter ischemic change. Septum pellucidum and third ventricle are midline. Skull and extracranial soft tissues appear within normal limits. There are mild partial mastoid effusions bilaterally. IMPRESSION: 1. No acute intracranial abnormality. 2. Partial mastoid effusions bilaterally. POS: [facility]
[2019-07-13 09:19] LABS: ALT (SGPT) 12 U/L (8-55); AST (SGOT) 14 U/L (5-34); Albumin 3.6 g/dL (3.4-4.8); Alkaline Phosphatase 131 U/L (40-110); Anion Gap 19 mmol/L (10-20); BUN (Urea Nitrogen) 43 mg/dL (8.4-25.7); Bilirubin, Total 0.6 mg/dL (0.2-1.2); Calc. Creatinine Clearance 0 mL/min (70-130); Calcium 9.4 mg/dL (7.8-10.44); Carbon Dioxide 28 mmol/L (23-31); Chloride 95 mmol/L (98-107); Estimated GFR-MDRD 14; Globulin 4.2 g/dL (2.4-3.5); Glucose 98 mg/dL (80-115); Potassium 5.2 mmol/L (3.5-5.1); Protein, Total 7.8 g/dL (5.8-8.1); Sodium 137 mmol/L (136-145)
--- NOTE | 2019-07-13 09:32 | RAD ---
EXAM: Left shoulder: 3 views INDICATIONS: Shoulder pain. COMPARISON: Correlation made to portable chest film of 06/09/2019 FINDINGS: There is evidence of acute fracture of the acromion with fracture line extending into the n [place] of the glenoid. There is new AC joint separation when compared to prior study. IMPRESSION: Evidence of acute fracture involving the acromion and scapula. Involvement of the neck of the glenoid and articular surface not excluded. There is evidence of acute AC joint separation. Recommend further evaluation with CT to further characterize this injury.
[2019-07-13] MEDS ORDERED: Norepinephrine 8 MG/0.9% NS 250 ML ONE (09:40)
--- NOTE | 2019-07-13 09:43 | RAD ---
CHEST 1 VIEW: INDICATION: Altered mental status. COMPARISON: Prior exam dated 06/09/2019. FINDINGS: There is moderate cardiomegaly with moderate pulmonary vascular congestion. There is airspace opacit y within both lower lobes with more consolidative opacity in the left lower lobe. No pleural effusio n or pneumothorax is evident. There is a right chest wall port in place. There is widening of the l eft AC joint. There is a comminuted fracture involving the left acromial spine and left glenoid neck . This is better detailed on the subsequently performed left shoulder radiograph. IMPRESSION: 1. Moderate cardiomegaly with moderate pulmonary vascular congestion. 2. Suspected right basilar atelectasis. 3. Airspace consolidation of the left lower lobe may reflect pneumonia or aspiration. 4. Left acromioclavicular joint separation and comminuted fracture of the left scapula. POS: [facility]
[2019-07-13 11:27] LABS: #Eosinphils 0.1 thou/uL (0.0-0.7); #Monocytes 0.5 thou/uL (0.11-0.59); #Neutrophils 2.9 thou/uL (1.40-6.50); %Basophils 0.7 % (0.0-1.0); %Eosinophils 1.3 % (0.0-10.0); %Lymphocytes 22.8 % (21.0-51.0); %Monocytes 11.8 % (0.0-10.0); %Neutrophils 63.5 % (42.0-75.0); Hemoglobin 11.7 g/dL (14.0-18.0); Mean Corpuscular HGB CONC 31.9 g/dL (32.0-36.0); Mean Corpuscular Hemoglobin 35.6 pg (27.0-31.0); Mean Platelet Volume 8.6 fL (7.4-10.4); Platelet Count 169 thou/uL (130-400); RBC Distribution Width 13.9 % (11.5-14.5); Red Blood Cell (RBC) Count 3.28 mill/uL (4.70-6.10); White Blood Cell (WBC) Count 4.5 thou/uL (4.8-10.8)
--- NOTE | 2019-07-13 11:44 | CT ---
CT OF THE CHEST AND ABDOMEN AND PELVIS WITH IV CONTRAST: INDICATION: History of altered mental status, confusion, hypotension. FINDINGS: Motion artifact heavily limits image detail. There is a comminuted medial left clavicle fracture. There is a heavily comminuted left scapular bod y fracture that is incompletely evaluated. There is soft tissue swelling of the left upper extremity . 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 There is airspace consolidation involving both lower lobes. There is marked cardiomegaly and pulmona ry arterial tree enlargement. There is no evidence for a pneumothorax. There is a small hypodensities within the right hepatic lobe suspicious for a tiny cyst. There are b ilateral renal cysts and atrophic nome kidneys. Gallbladder is surgically absent. The pancreas and adrenal glands are normal-appearing. The spleen is normal-appearing. There is a mo derate amount of retained stool within the colon. The small bowel is of normal caliber. No definite free fluid or free air is grossly evident within the abdomen or pelvis. There are scattered vascular calcifications. There is diffuse anasarca. There is heterotopic ossification overlying the right hip. There are changes of the renal osteoystrop hy. Motion artifact limits image detail of the ribs. There are healing right anterolateral 4th thro ugh 6th rib fractures. IMPRESSION: 1. Limitations of the exam due to motion artifact. 2. Comminuted fracture involving the medial left clavicle. 3. Comminuted fracture involving the left scapular body. Anterolateral right 4th through 6th rib fr actures. 4. Bibasilar airspace consolidation suspicious for pneumonia or aspiration. 5. Marked cardiomegaly with pulmonary arterial tree enlargement. 6. Moderate amount of retained stool within the colon. 7. Findings of renal osteodystrophy and diffuse anasarca. 8. Prominent multinodular substernal goiter. POS: [facility]
[2019-07-13 12:21] LABS: Troponin I 0.103 ng/mL (< 0.028)
[2019-07-13] MEDS ORDERED: Vancomycin HCl 1.25 GM in Sodium Chloride 0.9% 250 ML 250 ML IVPB SCH ×2 (12:45→13:00)
[2019-07-13] MEDS ORDERED: Vancomycin HCl 1 GM in Premix Bag 1 BAG IVPB SCH (13:00)
[2019-07-13] MEDS ORDERED: Vancomycin HCl 500 MG in Sodium Chloride 0.9% 100 ML IVPB SCH (13:00)
[2019-07-13] MEDS ORDERED: HOLD VANCOMYCIN FOR LEVEL >20 FS SCH (13:00)
[2019-07-13] MEDS ORDERED: Iopamidol 370 76% 50 ML VIAL FS ONE (13:12)
--- NOTE | 2019-07-13 14:13 | HP ---
HISTORY OF PRESENT ILLNESS: Mr. Villeda is a 63 years old black man. He has end-stage renal disease, has been on hemodialysis. This morning, while in dialysis, he was noticed to be hypotensive and confused and he was sent to the hospital. Upon evaluation, he was felt to be septic and he is being admitted for management. The patient has been on hospice, which was revoked prior to coming to the hospital. PAST MEDICAL HISTORY: Remarkable for hypertension, congestive heart failure, and COPD. He has esophageal cancer, HIV positive, also a history of coronary artery disease, and peripheral vascular disease. He also has a history of hepatitis C. PAST SURGICAL HISTORY: Remarkable for dialysis access placement, laparotomy due to bowel obstruction, appendectomy, left total knee replacement, and later left [id number] amputation. ALLERGIES: HE HAS ALLERGY TO CIPRO, CLINDAMYCIN, AND PAXIL. SOCIAL HISTORY: He is a former smoker. He also has a history of ETOH abuse and drug abuse. FAMILY HISTORY: Reviewed and is not contributory. REVIEW OF SYSTEMS: Cannot be obtained at this time as the patient is poorly responsive, currently on BiPAP. In the ER, he was started on IV fluid and also Levophed. PHYSICAL EXAMINATION: GENERAL: At the current time, he is on BiPAP, responsive, poorly cooperative. VITAL SIGNS: His latest vital signs show a temperature of 97.8, pulse rate 105, respiratory rate 22, and blood pressure 97/57. When he came in, his blood pressure was 87/60. HEENT: His head is normocephalic and atraumatic. Both his pupils are equal and reactive. Ears are normal. As mentioned earlier, he is currently on BiPAP. NECK: Supple. There is no distention of the jugular vein. No lymphadenopathy felt. Thyroid gland not palpable. There is no carotid bruit. CHEST: Symmetrical with regular S1 and S2. LUNGS: Diffuse rhonchi. ABDOMEN: Soft. Bowel sounds decreased. We could not appreciate any organomegaly. There is no focal area of tenderness. EXTREMITIES: Limbs show no edema of the right leg. He is status post left AKA. NEUROLOGIC: He moves all extremities. LABORATORY DATA: His CBC showed WBC of 4.5, hemoglobin of 11.7, hematocrit of 36.6, MCV of 112, and platelets of 169. Chemistry and lytes show a sodium of 137, potassium 5.2, chloride 95, CO2 of 28, BUN 43, creatinine 5.19, and glucose 98. IMAGING STUDIES: CT of the chest, abdomen, and pelvis with IV contrast was reported to show a comminuted fracture involving the medial left clavicle and also the left scapular body. Bibasilar airspace consolidation suspicious for pneumonia or aspiration. Mild cardiomegaly. Multinodular substernal goiter. Diffuse anasarca and also finding of posterior dystrophy. His chest x-ray was reported to show moderate cardiomegaly with moderate pulmonary vascular congestion; right basilar atelectasis; airspace consolidation of the left lower lobe, which may represent pneumonia or aspiration; left acromioclavicular joint separation; and comminuted fracture of the left scapula. ASSESSMENT AND PLAN: This is a 63 years old black man with end-stage renal disease, hepatitis C, hypertension, diabetes mellitus, esophageal cancer, chronic obstructive pulmonary disease, coronary artery disease, previously on hospice, was brought to the hospital because of altered mental status, respiratory failure, found to be septic with bibasilar pneumonia and also noticed to have a fracture involving the left scapula and also the left clavicle. The patient is being admitted to medical ICU. His dictaphone typist will be consulted here. Blood cultures were sent. He is started on broad-spectrum antibiotics. He is currently on BiPAP and vasopressors. Further evaluation and management will depend on the course of his hospitalization and his response to therapy. Job ID: [id number]
[2019-07-13 15:15] LABS: Troponin I 0.446 ng/mL (< 0.028)
[2019-07-13] MEDS: Piperacillin/Tazobactam 2.25 GM in Sodium Chloride 0.9% 100 ML IVPB SCH ×2 (15:47→23:38)
[2019-07-13] MEDS ORDERED: Norepinephrine 8 MG in Dextrose 5% in Water 242 ML IVPB PRN (15:52)
[2019-07-13] MEDS ORDERED: FLU VACC QS2019-20(6MOS UP)/PF 60 MCG/0.5 ML SYRINGE IM ONE (16:00)
[2019-07-13 17:25] LABS: ALV-art Gradient 121.405 (0-20); Actual Bicarbonate (HCO3a) 24.9 mEq/L (22-28); Base Excess (BEa) -2.9 mEq/L (-2.0 to +3.0); CO2 Tension 57.1 mmHg (35.0-45.0); Calcium, Ionized 1.11 mmol/L (1.12-1.30); Carboxyhemoglobin (COHb) 1.9 gm% (0.0-3.0); O2 Tension (PaO2) 63.9 mmHg (> 80.0); Potassium - ABG Lab 5.24 mmol/L (3.70-5.30); Puncture Site RBA; pH, Arterial 7.26 (7.35-7.45)
[2019-07-13 23:24] LABS: Lactic Acid 0.7 mmol/L (0.5-2.2)
[2019-07-14] MEDS ORDERED: Acetaminophen 650 MG in Premix Bag 1 BAG IVPB PRN (00:18)
[2019-07-14] MEDS: Piperacillin/Tazobactam 2.25 GM in Sodium Chloride 0.9% 100 ML IVPB SCH ×3 (05:11→20:49)
[2019-07-14] MEDS ORDERED: Norepinephrine 8 MG/0.9% NS 0 ML ONE (05:53)
[2019-07-14] MEDS ORDERED: Prevnar 13-Val Conj/PF 0.5 ML SYRINGE IM ONE (09:00)
[2019-07-14] MEDS: Famotidine/PF 20 mg/2ml Vial SLOW IVP SCH (09:10)
[2019-07-14 09:16] LABS: Vancomycin, Random 11.3 ug/mL (See Comment)
--- NOTE | 2019-07-14 09:48 | CON ---
DATE OF CONSULTATION: 07/14/2019 This encompasses 70 minutes of time, of that time, greater than 50% spent with the patient and/or the patient's unit in the hospital. HISTORY OF PRESENT ILLNESS: This is a consultation from the hospitalist group. I was not notified until this morning. The patient was brought into the hospital yesterday. He had been receiving outpatient dialysis and been noted to be hypotensive and confused and was subsequently brought in. He was placed on BiPAP because of some CO2 retention. He also has a Levophed drip through a right groin central line. He is more awake this morning, want to come off the BiPAP. I am told he was previous on outpatient hospice and now wants to be an inpatient hospice and has instated a DNR. PAST MEDICAL HISTORY: 1. Hypertension. 2. Congestive heart failure. 3. COPD. 4. HIV. 5. Esophageal cancer. 6. Coronary artery disease. 7. Peripheral vascular disease. 8. Chronic hepatitis C. 9. End-stage renal disease, requiring hemodialysis. PAST SURGICAL HISTORY: 1. Left arm AV shunt placement. 2. Laparotomy for bowel obstructions for appendectomy. 3. Left gshbr-rei-jvno amputation. 4. Left total knee replacement prior to the amputation. ALLERGIES: CIPRO, CLINDAMYCIN, AND PAXIL. SOCIAL HISTORY: Former smoker. Has history of alcohol and drug abuse. FAMILY MEDICAL HISTORY: Unremarkable. REVIEW OF SYSTEMS: He is poorly oriented and cannot really provide much in the way of review of systems at this time. MEDICATIONS: Prior to admission; 1. Renvela. 2. Raltegravir. 3. Epogen. 4. Spiriva. 5. Pamelor. 6. Proventil. 7. Zidovudine. 8. Intelence. 9. Coreg. 10. Calcium. 11. Folate. 12. Fluticasone nasal spray. 13. Vitamin B12. 14. Gabapentin. 15. Aspirin. 16. Acetaminophen. 17. Hydralazine. 18. Pravastatin. 19. Protonix. PHYSICAL EXAMINATION: VITAL SIGNS: Temperature 98.5, pulse 93, blood pressure 109/60, and O2 saturation 97%. He is currently on a Levophed drip at 7 mcg/minute. GENERAL: He is awake and alert, in no distress. HEENT: Pupils reactive. Sclerae anicteric. Oropharynx dry. NECK: No adenopathy or JVD. LUNGS: Fairly clear anteriorly. CARDIOVASCULAR: S1 and S2. Slightly tachycardic. ABDOMEN: Soft and nontender to palpation. EXTREMITIES: He has a right groin central line placed. He has a left scgax-tlv-dxcb amputation. LABORATORY DATA: Sodium 137, potassium 5.2, chloride 95, CO2 of 28, BUN 43, creatinine 5.2, and glucose 98. Troponin 0.446. A pH of 7.26, pCO2 of 57, and pO2 of 64. White blood cell count 4.5, hematocrit 36.6, and platelet count 169. CT of the chest shows a left mid clavicular fracture. He has bibasilar alveolar infiltrates. ASSESSMENT: 1. Probable sepsis syndrome. 2. Possible lower lobe pneumonia. 3. End-stage renal disease. 4. Human immunodeficiency virus. PLAN: 1. He is continuing the vancomycin and Zosyn. 2. Wean Levophed as tolerated. 3. Try off BiPAP and see if he will tolerate. 4. Trend his laboratory test. 5. He is to receive dialysis today, but I doubt any significant volume can be pulled given his hypotension. This encompasses 45 minutes of critical care time. Job ID: [id number]
[2019-07-14 10:57] LABS: ALT (SGPT) 10 U/L (8-55); AST (SGOT) 14 U/L (5-34); Albumin 3.1 g/dL (3.4-4.8); Alkaline Phosphatase 102 U/L (40-110); Anion Gap 20 mmol/L (10-20); BUN (Urea Nitrogen) 55 mg/dL (8.4-25.7); Bilirubin, Total 0.6 mg/dL (0.2-1.2); Calc. Creatinine Clearance 12 mL/min (70-130); Calcium 8.8 mg/dL (7.8-10.44); Carbon Dioxide 26 mmol/L (23-31); Chloride 98 mmol/L (98-107); Estimated GFR-MDRD 11; Globulin 3.7 g/dL (2.4-3.5); Glucose 103 mg/dL (80-115); Potassium 5.7 mmol/L (3.5-5.1); Protein, Total 6.8 g/dL (5.8-8.1); Sodium 138 mmol/L (136-145)
--- NOTE | 2019-07-14 11:04 | PDOC.HOSPP ---
- Subjective Encounter Date: 07/14/19 Encounter Time: 11:02 Subjective: awake, alert, off BIPAP - Objective Vital Signs & Weight: Vital Signs (12 hours) Temp Pulse Pulse Ox 07/14/19 07:39 100 07/14/19 07:00 98.5 F 07/14/19 04:00 99.9 F H 07/14/19 03:37 96 98 07/14/19 00:00 101.2 F H 97 Weight Weight 154 lb 12.232 oz Most Recent Monitor Data Heart Rate from ECG 102 NIBP 103/66 NIBP BP-Mean 78 Respiration from ECG 14 SpO2 89 I&O: 07/13/19 07/14/19 07/15/19 06:59 06:59 06:59 Intake Total 591 170 Output Total 0 0 Balance 591 170 Result Diagrams: 07/13/19 11:11 07/14/19 10:11 Hospitalist ROS - Medication Medications: Active Medications Generic Name Dose Route Start Last Admin Trade Name Freq PRN Reason Stop Dose Admin Famotidine 20 mg 07/14/19 09:00 07/14/19 09:10 Pepcid SLOW IVP 20 mg DAILY [facility] Administration Piperacillin Sod/Tazobactam 100 mls @ 200 mls/hr 07/13/19 14:00 07/14/19 05: 11 Sod 2.25 gm/ Sodium Chloride IVPB 100 mls Q8HR ESME Administration Acetaminophen 650 mg/ Device 65 mls @ 400 mls/hr 07/14/19 00:18 07/14/19 00: 45 IVPB 07/15/19 00:19 65 mls Q6H PRN Administration Fever > 101 - Exam General Appearance: awake alert Neck: no JVD Heart: RRR, no murmur Respiratory - other findings: remarkably clear Gastrointestinal: soft, non-tender, normal bowel sounds Extremities: no edema Hosp A/P (1) Sepsis associated hypotension Code(s): A41.9 - SEPSIS, UNSPECIFIED ORGANISM; I95.9 - HYPOTENSION, UNSPECIFIED Status: Acute (2) PNA (pneumonia) Code(s): J18.9 - PNEUMONIA, UNSPECIFIED ORGANISM Status: Acute Qualifiers: Pneumonia type: due to unspecified organism Laterality: bilateral Lung location: unspecified part of lung Qualified Code(s): J18.9 - Pneumonia, unspecified organism (3) Acute on chronic respiratory failure with hypoxemia Code(s): J96.21 - ACUTE AND CHRONIC RESPIRATORY FAILURE WITH HYPOXIA Status: Acute (4) DM (diabetes mellitus) Code(s): E11.9 - TYPE 2 DIABETES MELLITUS WITHOUT COMPLICATIONS Status: Chronic Qualifiers: Diabetes mellitus type: type 2 Diabetes mellitus alf insulin use: without alf use Diabetes mellitus complication status: with kidney complications Diabetes mellitus complication detail: with chronic kidney disease Chronic kidney disease stage: on chronic dialysis Qualified Code(s) : E11.22 - Type 2 diabetes mellitus with diabetic chronic kidney disease; N18.6 - End stage renal disease; Z99.2 - Dependence on renal dialysis (5) ESRD (end stage renal disease) on dialysis Code(s): N18.6 - END STAGE RENAL DISEASE; Z99.2 - DEPENDENCE ON RENAL DIALYSIS Status: Chronic (6) HIV (human immunodeficiency virus infection) Code(s): B20 - HUMAN IMMUNODEFICIENCY VIRUS [HIV] DISEASE Status: Chronic Qualifiers: HIV symptom status: unspecified Qualified Code(s): B20 - Human immunodeficiency virus [HIV] disease (7) HTN (hypertension) Code(s): I10 - ESSENTIAL (PRIMARY) HYPERTENSION Status: Chronic Qualifiers: Hypertension type: essential hypertension (8) IVONNE on CPAP Code(s): G47.33 - OBSTRUCTIVE SLEEP APNEA (ADULT) (PEDIATRIC); Z99.89 - DEPENDENCE ON OTHER ENABLING MACHINES AND DEVICES Status: Chronic - Plan cont iv antibx HD per renal cont HIV meds off pressors/BIPAP revoked Hospice, now wants inpt hospice
--- NOTE | 2019-07-14 11:18 | PDOC.CPN ---
- Subjective Date: 07/14/19 Time: 11:16 Interval history: He is doing much better. Had to be on BiPAP overnight but is back on room air. He is still confused but pleasant. - Review of Systems ROS unobtainable: due to mental status - Objective Allergies/Adverse Reactions: Allergies Allergy/AdvReac Type Severity Reaction Status Date / Time clindamycin Allergy Intermediate CAUSED Verified 07/13/19 14:23 HYPERKALEMIA paroxetine HCl [From Paxil] Allergy Intermediate PT STATES Verified 07/13/19 14: 23 IT MADE HIM VERY CRAZY IN HEAD cephalexin Allergy Verified 07/13/19 14:23 ciprofloxacin Allergy Verified 07/13/19 14:23 dalteparin,porcine Allergy Verified 07/13/19 14:23 [From Fragmin] Visit Medications: Current Medications Acetaminophen/Codeine Phosphate (Tylenol #3) 1 tab PO Q6H PRN PRN Reason: Pain Aspirin (Aspirin) 325 mg PO DAILY [facility] Famotidine (Pepcid) 20 mg SLOW IVP DAILY [facility] Last Admin: 07/14/19 09:10 Dose: 20 mg Folic Acid (Folvite) 1 mg PO DAILY [facility] Piperacillin Sod/Tazobactam (Sod 2.25 gm/ Sodium Chloride) 100 mls @ 200 mls/ hr IVPB Q8HR [facility] Last Admin: 07/14/19 05:11 Dose: 100 mls Vancomycin HCl 1.25 gm/ Sodium (Chloride) 250 mls @ 166.667 mls/hr IVPB [facility] Vancomycin HCl 1 gm/ Device 200 mls @ 200 mls/hr IVPB [facility] Vancomycin HCl 750 mg/ Sodium (Chloride) 250 mls @ 250 mls/hr IVPB [facility] Vancomycin HCl 500 mg/ Sodium (Chloride) 100 mls @ 100 mls/hr IVPB [facility] Acetaminophen 650 mg/ Device 65 mls @ 400 mls/hr IVPB Q6H PRN PRN Reason: Fever > 101 Stop: 07/15/19 00:19 Last Admin: 07/14/19 00:45 Dose: 65 mls Miscellaneous Medication (Pharmacy To Dose) 1 each IVPB .VANCOMYCIN PRN PRN Reason: Pharmacy to dose Hold Vancomycin For (Level >20) 0 each FS .AT DIALYSIS [facility] Non-Formulary Medication (Albuterol Sulfate Hfa (Or)) 2 puff INH Q6HR PRN PRN Reason: SOB &/or Wheezing Non-Formulary Medication (Etravirine [Intelence]) 200 mg PO BID-PC [facility] Non-Formulary Medication (Tiotropium [place] [Spiriva]) 2.5 mcg IH DAILY [facility] Pantoprazole Sodium (Protonix) 40 mg PO DAILY [facility] Pravastatin Sodium (Pravachol) mg PO QPM [facility] Raltegravir (Isentress) 400 mg PO BID [facility] Sevelamer Carbonate (Renvela) 800 mg PO TID-WM [facility] Zidovudine (Retrovir) 100 mg PO Q8HR [facility] Vital Signs & Weight: Vital Signs Temp Pulse Pulse Ox 07/14/19 07:39 100 07/14/19 07:00 98.5 F 07/14/19 04:00 99.9 F H 07/14/19 03:37 96 98 07/14/19 00:00 101.2 F H 97 Weight 154 lb 12.232 oz - Physical Exam General: no apparent distress HEENT: normocephaly Neck: supple neck, midline trachea Cardiac: regular rate and rhythm, systolic murmur Lungs: normal breath sounds Neuro: no lateralizing findings Abdomen: active bowel sounds, soft, non-tender Extremities: 2+ LE edema Skin: clear Musculoskeletal: no pain - Labs Result Diagrams: 07/13/19 11:11 07/14/19 10:11 Troponin/CKMB CK-MB (CK-2) 6.0 ng/mL (0-6.6) 07/13/19 08:36 Troponin I 0.446 ng/mL (< 0.028) H* 07/13/19 14:36 - Telemetry Sinus rhythms and dysrhythmias: sinus rhythm - Assessment/Plan Assessment/Plan: 1. Type 2 demand ischemia 2. ESRD 3. Hypotension, resolved. 4. Possible aspiration pneumonia 5. Volume overload 6. Esophageal carcinoma 7. HIV 8. Hep C PLAN: - Off pressors. - HD for volume overload. - No indication for anticoagulation or invasive interventions. - Pt is DNR/DNI
[2019-07-14] MEDS ORDERED: PROVENTIL INHALER 6.7 G (200 INHALATIONS) INH PRN (11:30)
[2019-07-14] MEDS: Sevelamer Carbonate 800 MG TAB PO SCH ×2 (12:19→17:03)
[2019-07-14] MEDS: Ipratropium Bromide 2.5 ml Neb NEB SCH ×2 (14:10→18:57)
[2019-07-14] MEDS: Acetaminophen/Codeine 30-300mg Tablet PO PRN (18:21)
[2019-07-14] MEDS: Atorvastatin Calcium 10 MG TAB PO SCH (20:49)
[2019-07-14] MEDS: Raltegravir Potassium 400 MG TAB PO SCH (20:49)
[2019-07-15] MEDS: Ipratropium Bromide 2.5 ml Neb NEB SCH ×5 (01:27→23:31)
[2019-07-15] MEDS: Piperacillin/Tazobactam 2.25 GM in Sodium Chloride 0.9% 100 ML IVPB SCH ×3 (06:26→21:33)
[2019-07-15 06:51] LABS: #Lymphocytes 1.1 thou/uL (1.20-3.40); #Monocytes 0.6 thou/uL (0.11-0.59); #Neutrophils 4.2 thou/uL (1.40-6.50); %Basophils 0.3 % (0.0-1.0); %Eosinophils 0.5 % (0.0-10.0); %Lymphocytes 18.6 % (21.0-51.0); %Monocytes 9.5 % (0.0-10.0); %Neutrophils 71.1 % (42.0-75.0); Hemoglobin 11.1 g/dL (14.0-18.0); Mean Corpuscular HGB CONC 32.2 g/dL (32.0-36.0); Mean Corpuscular Hemoglobin 35.4 pg (27.0-31.0); Mean Platelet Volume 7.9 fL (7.4-10.4); Platelet Count 147 thou/uL (130-400); RBC Distribution Width 14.3 % (11.5-14.5); Red Blood Cell (RBC) Count 3.13 mill/uL (4.70-6.10); White Blood Cell (WBC) Count 5.9 thou/uL (4.8-10.8)
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
[2019-07-15 07:17] LABS: Anion Gap 18 mmol/L (10-20); BUN (Urea Nitrogen) 64 mg/dL (8.4-25.7); Calc. Creatinine Clearance 11 mL/min (70-130); Calcium 8.4 mg/dL (7.8-10.44); Carbon Dioxide 25 mmol/L (23-31); Chloride 97 mmol/L (98-107); Estimated GFR-MDRD 10; Glucose 95 mg/dL (80-115); Potassium 6.2 mmol/L (3.5-5.1); Sodium 134 mmol/L (136-145)
--- NOTE | 2019-07-15 08:14 | PDOC.HOSPP ---
- Subjective Encounter Date: 07/15/19 Encounter Time: 08:12 Subjective: sleepy, no distress - Objective Vital Signs & Weight: Vital Signs (12 hours) Temp Pulse Resp BP Pulse Ox 07/15/19 03:47 99.0 F 97 16 82/50 L 99 07/15/19 01:27 92 16 92 L 07/14/19 23:30 97.7 F 98 16 82/52 L 98 Weight Weight 154 lb 12.232 oz Most Recent Monitor Data Heart Rate from ECG 106 NIBP 92/57 NIBP BP-Mean 68 Respiration from ECG 17 SpO2 88 I&O: 07/14/19 07/15/19 07/16/19 06:59 06:59 06:59 Intake Total 591 213 Output Total 0 0 Balance 591 213 Result Diagrams: 07/15/19 06:40 07/15/19 06:40 Hospitalist ROS - Medication Medications: Active Medications Generic Name Dose Route Start Last Admin Trade Name Freq PRN Reason Stop Dose Admin Acetaminophen/Codeine Phosphate 1 tab 07/14/19 11:00 07/14/19 18:21 Tylenol #3 PO 1 tab Q6H PRN Administration Pain Atorvastatin Calcium 10 mg 07/14/19 21:00 07/14/19 20:49 Lipitor PO 10 mg HS ESME Administration Etravirine 200 mg 07/14/19 18:00 07/14/19 20:49 Intelence PO 200 mg BID-PC [facility] Administration Famotidine 20 mg 07/14/19 09:00 07/14/19 09:10 Pepcid SLOW IVP 20 mg DAILY [facility] Administration Piperacillin Sod/Tazobactam 100 mls @ 200 mls/hr 07/13/19 14:00 07/15/19 06: 26 Sod 2.25 gm/ Sodium Chloride IVPB 100 mls Q8HR [facility] Administration Ipratropium [place] 2.5 ml 07/14/19 13:00 07/15/19 01:27 Atrovent NEB 2.5 ml Q5DA-UO [facility] Administration Raltegravir 400 mg 07/14/19 21:00 07/14/19 20:49 Isentress PO 400 mg BID [facility] Administration Sevelamer Carbonate 800 mg 07/14/19 12:00 07/14/19 17:03 Renvela PO Not Given TID-WM [facility] Zidovudine 100 mg 07/14/19 14:00 07/15/19 06:26 Retrovir PO 100 mg Q8HR [facility] Administration - Exam Neck: no JVD Heart: RRR, no murmur Respiratory - other findings: coarse BS, rhonchi Gastrointestinal: soft, normal bowel sounds Extremities: 1+ LE edema Hosp A/P (1) Sepsis associated hypotension Code(s): A41.9 - SEPSIS, UNSPECIFIED ORGANISM; I95.9 - HYPOTENSION, UNSPECIFIED Status: Acute (2) PNA (pneumonia) Code(s): J18.9 - PNEUMONIA, UNSPECIFIED ORGANISM Status: Acute Qualifiers: Pneumonia type: aspiration pneumonia Laterality: bilateral Lung location : unspecified part of lung (3) Acute on chronic respiratory failure with hypoxemia Code(s): J96.21 - ACUTE AND CHRONIC RESPIRATORY FAILURE WITH HYPOXIA Status: Acute (4) DM (diabetes mellitus) Code(s): E11.9 - TYPE 2 DIABETES MELLITUS WITHOUT COMPLICATIONS Status: Chronic Qualifiers: Diabetes mellitus type: type 2 Diabetes mellitus manager long term care insulin use: without manager long term care use Diabetes mellitus complication status: with kidney complications Diabetes mellitus complication detail: with chronic kidney disease Chronic kidney disease stage: on chronic dialysis Qualified Code(s) : E11.22 - Type 2 diabetes mellitus with diabetic chronic kidney disease; N18.6 - End stage renal disease; Z99.2 - Dependence on renal dialysis (5) ESRD (end stage renal disease) on dialysis Code(s): N18.6 - END STAGE RENAL DISEASE; Z99.2 - DEPENDENCE ON RENAL DIALYSIS Status: Chronic (6) HIV (human immunodeficiency virus infection) Code(s): B20 - HUMAN IMMUNODEFICIENCY VIRUS [HIV] DISEASE Status: Chronic Qualifiers: HIV symptom status: unspecified Qualified Code(s): B20 - Human immunodeficiency virus [HIV] disease (7) HTN (hypertension) Code(s): I10 - ESSENTIAL (PRIMARY) HYPERTENSION Status: Chronic Qualifiers: Hypertension type: essential hypertension (8) IVONNE on CPAP Code(s): G47.33 - OBSTRUCTIVE SLEEP APNEA (ADULT) (PEDIATRIC); Z99.89 - DEPENDENCE ON OTHER ENABLING MACHINES AND DEVICES Status: Chronic (9) Esophageal cancer Status: Acute (10) Hepatitis C Code(s): B19.20 - UNSPECIFIED VIRAL HEPATITIS C WITHOUT HEPATIC COMA Status: Acute Qualifiers: Viral hepatitis chronicity: chronic Hepatic coma status: without hepatic coma Qualified Code(s): B18.2 - Chronic viral hepatitis C - Plan cont iv antibx HD per renal cont HIV meds off pressors/BIPAP discuss with consultants
--- NOTE | 2019-07-15 08:16 | CON ---
DATE OF CONSULTATION: CONSULTING PHYSICIAN: Bruce Archuleta MD REQUESTING PHYSICIAN: Dr Marquez with the hospitalist program. REASON FOR CONSULTATION: End-stage renal disease. IMPRESSION: 1. End-stage renal disease, hemodialysis dependent, Monday, , Monday. Due for dialysis today. 2. History of esophageal cancer status post radio/chemo therapy. 3. Sepsis, possibly related to pneumonitis. 4. Left shoulder/scapula supraspinatus fracture/injury 5. Sepsis with labile hemodynamics. PLAN: 1. The patient to benefit from blood gas assessment _ in the context of respiratory acidosis with hypercapnia. We will like recommend Bipap, especially at night. 2. No emergent indication for hemodialysis, HISTORY: Brant Villeda is a gentleman with end-stage renal disease, who went to dialysis today in accordance with the schedule and was noted to be altered as well as hypotensive The patient was sent over to ER where initial evaluation did reveal evidence of tendon rupture. The patient has now been admitted for further management. The patient noted to be hemodynamically unstable PAST MEDICAL HISTORY: 1. Significant for end-stage renal disease, hemodialysis dependent. 2. HIV. 3. Hepatitis C. 4. History of esophageal carcinoma. 5. Gastroesophageal reflux disease. 6. Anemia. MEDICATIONS: Reviewed and documented on [employer]. FAMILY HISTORY: Unremarkable to be present illness. SOCIAL HISTORY: Unremarkable to be present illness. PHYSICAL EXAMINATION: GENERAL: The patient was noted to be ill looking, but hemodynamically stable. HEENT EXAMINATION: Unremarkable. CARDIOVASCULAR SYSTEM: First and second heart sounds were heard. RESPIRATORY SYSTEM: Clear to auscultation bilaterally. DIGESTIVE SYSTEM: Revealed a benign abdomen with positive bowel sounds. EXTREMITIES: No peripheral edema. SKIN EXAMINATION: No new gross rash. LYMPHATICS: No peripheral lymphadenopathy. In summary 58 year old gentleman with ESRD HD dependent who is here with evidence of sepsis and fracture. Job ID: [id number] [facility]
[2019-07-15] MEDS ORDERED: TIOTROPIUM BROMIDE 2.5 MCG IH SCH (09:00)
[2019-07-15] MEDS: Famotidine/PF 20 mg/2ml Vial SLOW IVP SCH (09:14)
--- NOTE | 2019-07-15 09:43 | PDOC.PALCO ---
Palliative Care Consult - Consult Details Requesting Physician: Dr Marquez Reason for Consult: advance directives assistance, complex decision-making Family Members Present: Patient sister Mahi at bedside, Spoke on phone with Jessica - Pertinent HPI 63 year old male who was recently discharged home with hospice secondary to esophageal cancer but continued to receive dialysis for renal disease. Recent fall at home. Increasing weakness as per family over the past few days. At dialysis patient was noted to have increase in confusion, hypotension and bradycardia. Hospice was revoked, sent to the emergency room for evaluation and admitted for management of septicemia. - Pertinent PMH HIV, esophageal cancer, CAD, PVD, Hep C, renal failure requiring dialysis, CHF, COPD - Social History Smoking Status: Former smoker Alcohol Use: other (former abuse of ETOH) Drug Use History: other (Former Drug user) Living Situation: with family/parents - Medications MAR Reviewed: Yes - Allergies Allergies/Adverse Reactions: Allergies Allergy/AdvReac Type Severity Reaction Status Date / Time clindamycin Allergy Intermediate CAUSED Verified 07/13/19 14:23 HYPERKALEMIA paroxetine HCl [From Paxil] Allergy Intermediate PT STATES Verified 07/13/19 14: 23 IT MADE HIM VERY CRAZY IN HEAD cephalexin Allergy Verified 07/13/19 14:23 ciprofloxacin Allergy Verified 07/13/19 14:23 dalteparin,porcine Allergy Verified 07/13/19 14:23 [From Fragmin] - Subjective lethargic, confused, opens eyes but unable to answer questions and returns to sleep state. - ROS Constitutional: lethargic - Objective Vital Signs: Vital Signs - Most Recent Temp Pulse Resp BP Pulse Ox 99.0 F 97 16 82/50 L 99 07/15/19 03:47 07/15/19 03:47 07/15/19 03:47 07/15/19 03:47 07/15/19 03:47 Palliative Performance Scale: 20 - Physical Exam Constitutional: confusion, encephalitic, ill appearing HEENT: moist MMs, sclera anicteric Deviation from normal: adventicious more pronounced on expiration, Cardiovascular: RRR, diminished peripheral pulses Gastrointestinal: non-tender, positive bowel sounds, incontinent Genitourinary: incontinent Musculoskeletal: edema present, muscle wasting Deviation from normal: left aka Deviation from normal: lethargic Skin: cap refill <2 seconds, bruising (chest wall) Deviation from normal: lethargic, oreinted to self - Problem List (1) Esophageal cancer Current Visit: Yes Status: Acute (2) Acute on chronic diastolic heart failure Code(s): I50.33 - ACUTE ON CHRONIC DIASTOLIC (CONGESTIVE) HEART FAILURE Current Visit: No Status: Acute (3) Palliative care encounter Code(s): Z51.5 - ENCOUNTER FOR PALLIATIVE CARE Current Visit: No Status: Acute (4) Physical deconditioning Code(s): R53.81 - OTHER MALAISE Current Visit: No Status: Acute (5) ESRD (end stage renal disease) on dialysis Code(s): N18.6 - END STAGE RENAL DISEASE; Z99.2 - DEPENDENCE ON RENAL DIALYSIS Current Visit: No Status: Chronic - Plan/Recommendations Plan: Spoke with family at length in relation to revocation of hospice and goals of care. Patient unable at this time to desiginate a MPOA secondary to confusion and lethargy. Family reviewed recent history of patient and rapid decline. Honey Champagne, and Kt ([phone]) are all in agreement that he can not return home secondary to decline and increase in care needed. Family expressed that they believe he is suffering and would like to abstain at this time from measures to treat disease processes, stopping all therapies including antibiotics and dialysis and keep patient comfortable. They are in agreement and requesting for [facility] to care for Mr Ronal ESCAMILLA Conveyed to [facility] Travis Washington RN, Dr Yao, and Dr Barrera [[id number]] minutes spent on this encounter with >50% of the time in counseling and coordination of care. Thank you for this very appropriate consult.
[2019-07-15 10:04] VITALS: BMI 19.8
[2019-07-15] MEDS ORDERED: Insulin Regular 300 UNITS/3 ML VIAL IVP SCH (10:30)
[2019-07-15] MEDS ORDERED: Dextrose 50% Abboject 50 ML SYRINGE SLOW IVP SCH (10:30)
[2019-07-15] MEDS ORDERED: Calcium Gluconate 4.6 MEQ in Sodium Chloride 0.9% 100 ML IVPB SCH (10:30)
--- NOTE | 2019-07-15 10:45 | RAD ---
XR Chest 1 View Portable HISTORY: Pneumonia COMPARISON: 07/13/2019 FINDINGS: Right-sided Port-A-Cath remains in place. The heart is enlarged. No pneumothoraces are seen . There are bibasilar infiltrates. No large effusions are noted.
[2019-07-15] MEDS: Hydrocortisone Sod Succ/PF 100 mg/2 ml Vial IVP SCH ×2 (11:15→19:20)
[2019-07-15] MEDS: Folic Acid 1 MG TAB PO SCH (11:24)
[2019-07-15] MEDS: Sevelamer Carbonate 800 MG TAB PO SCH ×3 (11:24→16:39)
[2019-07-15] MEDS: Aspirin 325 MG TAB PO SCH (11:24)
[2019-07-15] MEDS: Raltegravir Potassium 400 MG TAB PO SCH ×2 (11:25→21:33)
--- NOTE | 2019-07-15 15:04 | PDOC.CPN ---
- Subjective Date: 07/15/19 Time: 15:00 Interval history: I saw during dialysis. He is unresponsive. - Review of Systems ROS unobtainable: due to mental status - Objective Allergies/Adverse Reactions: Allergies Allergy/AdvReac Type Severity Reaction Status Date / Time clindamycin Allergy Intermediate CAUSED Verified 07/13/19 14:23 HYPERKALEMIA paroxetine HCl [From Paxil] Allergy Intermediate PT STATES Verified 07/13/19 14: 23 IT MADE HIM VERY CRAZY IN HEAD cephalexin Allergy Verified 07/13/19 14:23 ciprofloxacin Allergy Verified 07/13/19 14:23 dalteparin,porcine Allergy Verified 07/13/19 14:23 [From Fragmin] Visit Medications: Current Medications Acetaminophen/Codeine Phosphate (Tylenol #3) 1 tab PO Q6H PRN PRN Reason: Pain Last Admin: 07/14/19 18:21 Dose: 1 tab Albuterol Sulfate (Proventil Hfa) 2 puff INH Q6H PRN PRN Reason: Dyspnea/Wheezing/SOB Aspirin (Aspirin) 325 mg PO DAILY [facility] Last Admin: 07/15/19 11:24 Dose: Not Given Atorvastatin Calcium (Lipitor) 10 mg PO HS [facility] Last Admin: 07/14/19 20:49 Dose: 10 mg Etravirine (Intelence) 200 mg PO BID-PC [facility] Last Admin: 07/15/19 11:23 Dose: Not Given Famotidine (Pepcid) 20 mg SLOW IVP DAILY [facility] Last Admin: 07/15/19 09:14 Dose: 20 mg Folic Acid (Folvite) 1 mg PO DAILY [facility] Last Admin: 07/15/19 11:24 Dose: Not Given Hydrocortisone Sodium Succinate (Solu-Cortef) 100 mg IVP Q8H [facility] Last Admin: 07/15/19 11:15 Dose: 100 mg Piperacillin Sod/Tazobactam (Sod 2.25 gm/ Sodium Chloride) 100 mls @ 200 mls/ hr IVPB Q8HR [facility] Last Admin: 07/15/19 06:26 Dose: 100 mls Vancomycin HCl 1.25 gm/ Sodium (Chloride) 250 mls @ 166.667 mls/hr IVPB [facility]CALL [facility] Vancomycin HCl 1 gm/ Device 200 mls @ 200 mls/hr IVPB [facility] Vancomycin HCl 750 mg/ Sodium (Chloride) 250 mls @ 250 mls/hr IVPB [facility]CALL [facility] Vancomycin HCl 500 mg/ Sodium (Chloride) 100 mls @ 100 mls/hr IVPB [facility]CALL [facility] Ipratropium [place] (Atrovent) 2.5 ml NEB [id number] [facility] Last Admin: 07/15/19 14:50 Dose: Not Given Miscellaneous Medication (Pharmacy To Dose) 1 each IVPB .VANCOMYCIN PRN PRN Reason: Pharmacy to dose Hold Vancomycin For (Level >20) 0 each FS .AT DIALYSIS [facility] Pantoprazole Sodium (Protonix) 40 mg PO DAILY [facility] Last Admin: 07/15/19 11:24 Dose: Not Given Raltegravir (Isentress) 400 mg PO BID [facility] Last Admin: 07/15/19 11:25 Dose: Not Given Sevelamer Carbonate (Renvela) 800 mg PO TID-WM [facility] Last Admin: 07/15/19 14:06 Dose: Not Given Sodium Chloride (Flush - Normal Saline) 10 ml IVF Q12HR [facility] Sodium Chloride (Flush - Normal Saline) 10 ml IVF PRN PRN PRN Reason: Saline Flush Zidovudine (Retrovir) 100 mg PO Q8HR [facility] Last Admin: 07/15/19 06:26 Dose: 100 mg Vital Signs & Weight: Vital Signs Temp Pulse Resp BP Pulse Ox 07/15/19 09:49 94 20 90 L 07/15/19 08:00 99.4 F 98 20 81/50 L 4 L 07/15/19 03:47 99.0 F 97 16 82/50 L 99 Admit Weight 154 lb 12.232 oz Weight 154 lb 12.232 oz - Physical Exam General: alert & oriented x3 HEENT: mucus membranes moist, normocephaly Neck: supple neck, midline trachea Cardiac: regular rate and rhythm, no murmur Lungs: clear to auscultation Neuro: grossly intact Abdomen: active bowel sounds, soft, non-tender Extremities: no edema Skin: clear Musculoskeletal: no pain - Labs Result Diagrams: 07/15/19 06:40 07/15/19 06:40 Troponin/CKMB CK-MB (CK-2) 6.0 ng/mL (0-6.6) 07/13/19 08:36 Troponin I 0.446 ng/mL (< 0.028) H* 07/13/19 14:36 - Telemetry Sinus rhythms and dysrhythmias: sinus tachycardia - Assessment/Plan Assessment/Plan: 1. Type 2 demand ischemia 2. ESRD 3. Hypotension, resolved. 4. Possible aspiration pneumonia 5. Volume overload 6. Esophageal carcinoma 7. HIV 8. Hep C 9. Hyperkalemia PLAN: - HD for volume overload and hyperkalemia - No indication for anticoagulation or invasive interventions. - Pt is DNR/DNI - Family leaning towards going back on Hospice care and discontinuation of dialysis. - Severely ill and would not be unexpected.
--- NOTE | 2019-07-15 16:49 | PDOC.PALFU ---
Palliative Care Follow-up Note Dr Barrera had visited with sister Mahi and it was decided to see if patient improved with dialysis and medication. It was hoped that patient could gain a level of orientation to display medical capacity in decision making. Upon assessment this afternoon patient remained lethargic, confused, unable to recall names of his sisters or brother. He thought he was in [place] and when attempted to reorient to location became agitated. Family was willing to see progress through today, will revisit with family 07/16 to revisit goals of care for patient. Again, as previously stated, patient is not and has no known living children, both parents . He has 4 siblings. The consensus of these siblings will act as segregate decision makers for the patient if he lacks medical capacity.
[2019-07-15] MEDS: Atorvastatin Calcium 10 MG TAB PO SCH (21:33)
[2019-07-15] MEDS: Acetaminophen/Codeine 30-300mg Tablet PO PRN (22:46)
--- NOTE | 2019-07-15 23:39 | PRG ---
DATE OF SERVICE: SUBJECTIVE: The patient is seen and examined. He is very somnolent, unarousable, noted with the systolic blood pressure in the 80s. OBJECTIVE: HEENT: Unremarkable. CARDIOVASCULAR: First and second heart sounds. RESPIRATORY: Shows some bilateral rales. DIGESTIVE: Revealed a benign abdomen. EXTREMITIES: Show some peripheral edema. NEUROLOGIC: Showed the patient is very somnolent and nonresponsive to any stimuli. LABORATORY INVESTIGATION: Showed a potassium of 6.2. IMPRESSION: 1. End-stage renal disease, on dialysis, has not had dialysis for several days now. 2. Uremia. The mental status of this patient is in keeping with the possibility of profound azotemia/uremia. 3. Renally dose all medications and avoid potentially nephrotoxic agents. PLAN: 1. The patient to be dialyzed today. Had extensive discussion with the sister of the patient, who felt the patient should go ahead and get dialysis and see if he makes any difference. The patient will undergo dialysis today with ultrafiltration minimally as tolerated by hemodynamics. 2. We will start this patient on stress-dose steroids. 3. Address the hyperkalemia unless the patient undergo dialysis. 4. Change this patient's diet to regular diet. 5. We will re-evaluate this patient tomorrow and possibly make arrangement for further dialysis. 6. Further management to be dependent on the clinical course. Job ID: [id number]
[2019-07-16] MEDS: Hydrocortisone Sod Succ/PF 100 mg/2 ml Vial IVP SCH ×3 (02:54→17:46)
[2019-07-16 05:01] LABS: #Lymphocytes 0.4 thou/uL (1.20-3.40); #Monocytes 0.2 thou/uL (0.11-0.59); #Neutrophils 3.8 thou/uL (1.40-6.50); %Eosinophils 0.5 % (0.0-10.0); %Lymphocytes 9.6 % (21.0-51.0); %Monocytes 4.3 % (0.0-10.0); %Neutrophils 85.6 % (42.0-75.0); Hemoglobin 12.5 g/dL (14.0-18.0); Mean Corpuscular HGB CONC 31.8 g/dL (32.0-36.0); Mean Platelet Volume 9.1 fL (7.4-10.4); Platelet Count 128 thou/uL (130-400); RBC Distribution Width 14.2 % (11.5-14.5); Red Blood Cell (RBC) Count 3.57 mill/uL (4.70-6.10); White Blood Cell (WBC) Count 4.4 thou/uL (4.8-10.8)
[2019-07-16 05:09] LABS: Anion Gap 16 mmol/L (10-20); BUN (Urea Nitrogen) 45 mg/dL (8.4-25.7); Calc. Creatinine Clearance 14 mL/min (70-130); Carbon Dioxide 26 mmol/L (23-31); Chloride 96 mmol/L (98-107); Estimated GFR-MDRD 13; Glucose 154 mg/dL (80-115); Potassium 5.1 mmol/L (3.5-5.1); Sodium 133 mmol/L (136-145)
[2019-07-16] MEDS: Piperacillin/Tazobactam 2.25 GM in Sodium Chloride 0.9% 100 ML IVPB SCH (05:54)
[2019-07-16] MEDS: Ipratropium Bromide 2.5 ml Neb NEB SCH ×3 (08:00→19:04)
[2019-07-16] MEDS: Sevelamer Carbonate 800 MG TAB PO SCH ×3 (09:06→18:20)
[2019-07-16] MEDS: Famotidine/PF 20 mg/2ml Vial SLOW IVP SCH (09:06)
[2019-07-16] MEDS: Raltegravir Potassium 400 MG TAB PO SCH ×2 (09:06→20:51)
[2019-07-16] MEDS: Folic Acid 1 MG TAB PO SCH (09:07)
[2019-07-16] MEDS: Aspirin 325 MG TAB PO SCH (09:07)
--- NOTE | 2019-07-16 09:11 | PDOC.HOSPP ---
- Subjective Encounter Date: 07/16/19 Encounter Time: 09:09 Subjective: no distress, new my name - Objective Vital Signs & Weight: Vital Signs (12 hours) Temp Pulse Resp BP Pulse Ox 07/16/19 08:59 98.3 F 84 18 106/60 99 07/16/19 08:00 79 18 100 07/16/19 03:26 98.5 F 85 16 107/63 97 07/15/19 23:35 98.8 F 85 20 90/53 L 98 07/15/19 23:31 84 16 95 Weight Admit Weight 154 lb 12.232 oz Weight 154 lb 12.232 oz Most Recent Monitor Data Heart Rate from ECG 106 NIBP 92/57 NIBP BP-Mean 68 Respiration from ECG 17 SpO2 88 I&O: 07/15/19 07/16/19 07/17/19 06:59 06:59 06:59 Intake Total 213 360 Output Total 0 0 Balance 213 360 Result Diagrams: 07/16/19 04:43 07/16/19 04:43 Additional Labs: Accuchecks 07/15/19 12:14 POC Glucose 93 Hospitalist ROS - Medication Medications: Active Medications Generic Name Dose Route Start Last Admin Trade Name Freq PRN Reason Stop Dose Admin Acetaminophen/Codeine Phosphate 1 tab 07/14/19 11:00 07/15/19 22:46 Tylenol #3 PO 1 tab Q6H PRN Administration Pain Aspirin 325 mg 07/15/19 09:00 07/16/19 09:07 Aspirin PO 325 mg DAILY [facility] Administration Atorvastatin Calcium 10 mg 07/14/19 21:00 07/15/19 21:33 Lipitor PO 10 mg HS [facility] Administration Etravirine 200 mg 07/14/19 18:00 07/16/19 09:05 Intelence PO 200 mg BID-PC [facility] Administration Famotidine 20 mg 07/14/19 09:00 07/16/19 09:06 Pepcid SLOW IVP 20 mg DAILY [facility] Administration Folic Acid 1 mg 07/15/19 09:00 07/16/19 09:07 Folvite PO 1 mg DAILY [facility] Administration Hydrocortisone Sodium Succinate 100 mg 07/15/19 11:00 07/16/19 02:54 Solu-Cortef IVP 100 mg Q8H [facility] Administration Piperacillin Sod/Tazobactam 100 mls @ 200 mls/hr 07/13/19 14:00 07/16/19 05: 54 Sod 2.25 gm/ Sodium Chloride IVPB 100 mls Q8HR [facility] Administration Ipratropium [place] 2.5 ml 07/14/19 13:00 07/16/19 08:00 Atrovent NEB 2.5 ml [id number] [facility] Administration Pantoprazole Sodium 40 mg 07/15/19 09:00 07/16/19 09:06 Protonix PO 40 mg DAILY [facility] Administration Raltegravir 400 mg 07/14/19 21:00 07/16/19 09:06 Isentress PO 400 mg BID [facility] Administration Sevelamer Carbonate 800 mg 07/14/19 12:00 07/16/19 09:06 Renvela PO 800 mg TID-WM [facility] Administration Sodium Chloride 10 ml 07/15/19 21:00 07/16/19 09:07 Flush - Normal Saline IVF 10 ml Q12HR [facility] Administration Sodium Chloride 10 ml 07/15/19 10:37 07/16/19 05:57 Flush - Normal Saline IVF 10 ml PRN PRN Administration Saline Flush Zidovudine 100 mg 07/14/19 14:00 07/16/19 05:54 Retrovir PO 100 mg Q8HR [facility] Administration - Exam General Appearance: awake alert Neck: no JVD Heart: RRR, no murmur Respiratory: CTAB Gastrointestinal: soft, normal bowel sounds Extremities: no edema Hosp A/P (1) Sepsis associated hypotension Code(s): A41.9 - SEPSIS, UNSPECIFIED ORGANISM; I95.9 - HYPOTENSION, UNSPECIFIED Status: Acute (2) PNA (pneumonia) Code(s): J18.9 - PNEUMONIA, UNSPECIFIED ORGANISM Status: Acute Qualifiers: Pneumonia type: due to methicillin-resistant Staphylococcus aureus (MRSA) Laterality: bilateral Lung location: unspecified part of lung Qualified Code (s): J15.212 - Pneumonia due to Methicillin resistant Staphylococcus aureus (3) Acute on chronic respiratory failure with hypoxemia Code(s): J96.21 - ACUTE AND CHRONIC RESPIRATORY FAILURE WITH HYPOXIA Status: Acute (4) DM (diabetes mellitus) Code(s): E11.9 - TYPE 2 DIABETES MELLITUS WITHOUT COMPLICATIONS Status: Chronic Qualifiers: Diabetes mellitus type: type 2 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 insulin use: without halfway use Diabetes mellitus complication status: with kidney complications Diabetes mellitus complication detail: with chronic kidney disease Chronic kidney disease stage: on chronic dialysis Qualified Code(s) : E11.22 - Type 2 diabetes mellitus with diabetic chronic kidney disease; N18.6 - End stage renal disease; Z99.2 - Dependence on renal dialysis (5) ESRD (end stage renal disease) on dialysis Code(s): N18.6 - END STAGE RENAL DISEASE; Z99.2 - DEPENDENCE ON RENAL DIALYSIS Status: Chronic (6) HIV (human immunodeficiency virus infection) Code(s): B20 - HUMAN IMMUNODEFICIENCY VIRUS [HIV] DISEASE Status: Chronic Qualifiers: HIV symptom status: unspecified Qualified Code(s): B20 - Human immunodeficiency virus [HIV] disease (7) HTN (hypertension) Code(s): I10 - ESSENTIAL (PRIMARY) HYPERTENSION Status: Chronic Qualifiers: Hypertension type: essential hypertension (8) IVONNE on CPAP Code(s): G47.33 - OBSTRUCTIVE SLEEP APNEA (ADULT) (PEDIATRIC); Z99.89 - DEPENDENCE ON OTHER ENABLING MACHINES AND DEVICES Status: Chronic (9) Esophageal cancer Status: Acute (10) Hepatitis C Code(s): B19.20 - UNSPECIFIED VIRAL HEPATITIS C WITHOUT HEPATIC COMA Status: Acute Qualifiers: Viral hepatitis chronicity: chronic Hepatic coma status: without hepatic coma Qualified Code(s): B18.2 - Chronic viral hepatitis C - Plan cont iv antibx. vancomycin for MRSA HD per renal cont HIV meds appears more alert ,orientad
[2019-07-16 10:26] LABS: Vancomycin, Random 7.5 ug/mL (See Comment)
--- NOTE | 2019-07-16 17:36 | PRG ---
DATE OF SERVICE: 07/14/2019 OBJECTIVE: VITAL SIGNS: The patient is noted with the following vital signs. Afebrile. Temperature 99.1, pulse 101, respiratory rate of 18, O2 saturations of 94%, blood pressure 107/56. HEENT: Unremarkable. CARDIOVASCULAR SYSTEM: First and second heart sounds were heard. RESPIRATORY SYSTEM: Shows some rales. DIGESTIVE SYSTEM: Revealed a benign abdomen. EXTREMITIES: No peripheral edema. LABORATORY INVESTIGATION: Significant for potassium of 5.7. IMPRESSION: 1. End-stage renal disease. 2. Hyperkalemia. 3. Incipient uremia. 4. Sepsis, on treatment. PLAN: 1. If the patient's potassium continues to rise and if the family is amenable to dialysis treatment, we will go ahead and initiate hemodialysis to disease his hyperkalemia and incipient uremia. 2. Further management will be dependent on the clinical course. Job ID: [id number]
[2019-07-16] MEDS ORDERED: Haloperidol Lactate 5 MG/ML VIAL SLOW IVP PRN (17:40)
[2019-07-16] MEDS: Lorazepam 2 MG/ML VIAL SLOW IVP PRN (17:48)
--- NOTE | 2019-07-16 19:17 | PRG ---
DATE OF SERVICE: 07/16/2019 SUBJECTIVE: The patient is seen and examined. Much more alert today. Noted with the following vital signs. OBJECTIVE: VITAL SIGNS: Afebrile, temperature 98.3, pulse 84, respiratory rate of 18, O2 saturation 99% with a blood pressure 106/60. HEENT: Unremarkable. CARDIOVASCULAR SYSTEM: First and second heart sounds were heard. RESPIRATORY: Clear to auscultation with some rales. DIGESTIVE SYSTEM: Reviewed and benign. ABDOMEN: Positive bowel sounds. EXTREMITY: No peripheral edema. SKIN: No new gross rash. LYMPHATICS: No peripheral lymphadenopathy. LABORATORY DATA: Showed potassium down to 5.1, BUN of 45, creatinine 5.38, sodium 133. IMPRESSION: 1. End-stage renal disease, on hemodialysis. 2. Uremia, which seems improved with one decision of dialysis yesterday. 3. Hyperkalemia, resolved. 4. Sepsis, on treatment. 5. Immunosuppressed on human immunodeficiency virus/hepatitis C. PLAN: 1. The patient to be dialyzed again today and after today's dialysis, will remain on Monday, , Monday schedule dialysis. 2. Discontinue the femoral catheter. 3. We will begin to deescalate the steroid treatment and probably place this patient on long-term oral fludrocortisone. 4. Further management will be dependent on the clinical course. Job ID: [id number]
[2019-07-16] MEDS: Atorvastatin Calcium 10 MG TAB PO SCH (20:50)
[2019-07-17] MEDS: Ipratropium Bromide 2.5 ml Neb NEB SCH ×4 (00:24→19:31)
[2019-07-17] MEDS: Sevelamer Carbonate 800 MG TAB PO SCH ×3 (08:03→17:04)
[2019-07-17] MEDS: Aspirin 325 MG TAB PO SCH (08:45)
[2019-07-17] MEDS: Raltegravir Potassium 400 MG TAB PO SCH ×2 (08:45→21:14)
[2019-07-17] MEDS: Folic Acid 1 MG TAB PO SCH (08:45)
[2019-07-17] MEDS: Famotidine/PF 20 mg/2ml Vial SLOW IVP SCH (08:45)
[2019-07-17] MEDS: Hydrocortisone Sod Succ/PF 100 mg/2 ml Vial IVP SCH ×2 (09:50→19:22)
[2019-07-17 17:44] LABS: Anion Gap 12 mmol/L (10-20); BUN (Urea Nitrogen) 29 mg/dL (8.4-25.7); Calc. Creatinine Clearance 21 mL/min (70-130); Carbon Dioxide 29 mmol/L (23-31); Chloride 98 mmol/L (98-107); Estimated GFR-MDRD 20; Glucose 87 mg/dL (80-115); Potassium 4.2 mmol/L (3.5-5.1); Sodium 135 mmol/L (136-145)
[2019-07-17 19:38] LABS: #Lymphocytes 0.6 thou/uL (1.20-3.40); #Monocytes 0.2 thou/uL (0.11-0.59); #Neutrophils 3.4 thou/uL (1.40-6.50); %Basophils 0.7 % (0.0-1.0); %Eosinophils 0.2 % (0.0-10.0); %Lymphocytes 14.6 % (21.0-51.0); %Monocytes 5.1 % (0.0-10.0); %Neutrophils 79.4 % (42.0-75.0); Hemoglobin 11.6 g/dL (14.0-18.0); Mean Corpuscular HGB CONC 31.6 g/dL (32.0-36.0); Mean Corpuscular Hemoglobin 34.1 pg (27.0-31.0); Mean Platelet Volume 8.9 fL (7.4-10.4); Platelet Count 152 thou/uL (130-400); RBC Distribution Width 14.4 % (11.5-14.5); White Blood Cell (WBC) Count 4.2 thou/uL (4.8-10.8)
[2019-07-17] MEDS: Atorvastatin Calcium 10 MG TAB PO SCH (21:14)
[2019-07-18] MEDS: Ipratropium Bromide 2.5 ml Neb NEB SCH ×4 (00:47→19:18)
[2019-07-18] MEDS: Hydrocortisone Sod Succ/PF 100 mg/2 ml Vial IVP SCH ×3 (02:12→14:04)
[2019-07-18 02:41] LABS: #Lymphocytes 0.7 thou/uL (1.20-3.40); #Monocytes 0.3 thou/uL (0.11-0.59); #Neutrophils 2.3 thou/uL (1.40-6.50); %Eosinophils 0.3 % (0.0-10.0); %Lymphocytes 19.9 % (21.0-51.0); %Neutrophils 71.8 % (42.0-75.0); Hemoglobin 9.3 g/dL (14.0-18.0); Mean Corpuscular HGB CONC 27.8 g/dL (32.0-36.0); Mean Corpuscular Hemoglobin 29.7 pg (27.0-31.0); Mean Platelet Volume 8.4 fL (7.4-10.4); Platelet Count 159 thou/uL (130-400); RBC Distribution Width 14.7 % (11.5-14.5); Red Blood Cell (RBC) Count 3.14 mill/uL (4.70-6.10); White Blood Cell (WBC) Count 3.3 thou/uL (4.8-10.8)
[2019-07-18 02:58] LABS: Anion Gap 16 mmol/L (10-20); BUN (Urea Nitrogen) 42 mg/dL (8.4-25.7); Calc. Creatinine Clearance 18 mL/min (70-130); Calcium 8.4 mg/dL (7.8-10.44); Carbon Dioxide 26 mmol/L (23-31); Chloride 96 mmol/L (98-107); Estimated GFR-MDRD 17; Glucose 120 mg/dL (80-115); Potassium 4.5 mmol/L (3.5-5.1); Sodium 133 mmol/L (136-145)
[2019-07-18 03:07] LABS: Vancomycin, Random 11.1 ug/mL (See Comment)
--- NOTE | 2019-07-18 11:17 | PDOC.HOSPP ---
- Subjective Encounter Date: 07/18/19 Encounter Time: 10:00 Subjective: pt seen in HD room, he wants that he does not want to and he want to change his code status to full code, he was tolerating his dialysis - Objective Vital Signs & Weight: Vital Signs (12 hours) Temp Pulse Resp BP Pulse Ox 07/18/19 08:00 98.5 F 77 18 163/92 H 91 L 07/18/19 06:48 72 16 92 L 07/18/19 00:47 79 16 93 L Weight Admit Weight 158 lb 11.725 oz Weight 154 lb 12.232 oz Most Recent Monitor Data Heart Rate from ECG 106 NIBP 92/57 NIBP BP-Mean 68 Respiration from ECG 17 SpO2 88 I&O: 07/17/19 07/18/19 07/19/19 06:59 06:59 06:59 Intake Total 360 Balance 360 Result Diagrams: 07/18/19 02:12 07/18/19 02:12 Hospitalist ROS - Review of Systems Constitutional: reports: weakness, malaise. denies: fever, chills, sweats, other Eyes: denies: pain, vision change, conjunctivae inflammation, eyelid inflammation, redness, other ENT: denies: ear pain, ear discharge, nose pain, nose discharge, nose congestion , mouth pain, mouth swelling, throat pain, throat swelling, other Respiratory: denies: cough, dry, shortness of breath, hemoptysis, SOB with excertion, pleuritic pain, sputum, wheezing, other Cardiovascular: denies: chest pain, palpitations, orthopnea, paroxysmal noc. dyspnea, edema, light headedness, other Gastrointestinal: denies: nausea, vomiting, abdominal pain, diarrhea, constipation, melena, hematochezia, other Genitourinary: denies: dysuria, frequency, incontinence, hematuria, retention, other Musculoskeletal: denies: neck pain, shoulder pain, arm pain, back pain, hand pain, leg pain, foot pain, other - Medication Medications: Active Medications Generic Name Dose Route Start Last Admin Trade Name Freq PRN Reason Stop Dose Admin Acetaminophen/Codeine Phosphate 1 tab 07/14/19 11:00 07/15/19 22:46 Tylenol #3 PO 1 tab Q6H PRN Administration Pain Aspirin 325 mg 07/15/19 09:00 07/17/19 08:45 Aspirin PO 325 mg DAILY ESME Administration Atorvastatin Calcium 10 mg 07/14/19 21:00 07/17/19 21:14 Lipitor PO 10 mg HS EMSE Administration Etravirine 200 mg 07/14/19 18:00 07/17/19 19:20 Intelence PO 200 mg BID-PC ESME Administration Famotidine 20 mg 07/14/19 09:00 07/17/19 08:45 Pepcid SLOW IVP 20 mg DAILY ESME Administration Folic Acid 1 mg 07/15/19 09:00 07/17/19 08:45 Folvite PO 1 mg DAILY ESME Administration Hydrocortisone Sodium Succinate 50 mg 07/16/19 18:00 07/18/19 02:12 Solu-Cortef IVP 50 mg 0200,1000,1800 ESME Administration Vancomycin HCl 1 gm/ Device 200 mls @ 200 mls/hr 07/13/19 13:00 07/16/19 12: 19 IVPB 200 mls WILLCALL ESME Administration Ipratropium [place] 2.5 ml 07/14/19 13:00 07/18/19 06:48 Atrovent NEB 2.5 ml [id number] ESME Administration Lorazepam 1 mg 07/16/19 17:41 07/16/19 17:48 Ativan SLOW IVP 1 mg Q4H PRN Administration Anxiety/Agitation Pantoprazole Sodium 40 mg 07/15/19 09:00 07/17/19 08:45 Protonix PO 40 mg DAILY ESME Administration Raltegravir 400 mg 07/14/19 21:00 07/17/19 21:14 Isentress PO 400 mg BID ESME Administration Sevelamer Carbonate 800 mg 07/14/19 12:00 07/17/19 17:04 Renvela PO 800 mg TID-WM ESME Administration Sodium Chloride 10 ml 07/15/19 21:00 07/17/19 21:15 Flush - Normal Saline IVF 10 ml Q12HR ESME Administration Sodium Chloride 10 ml 07/15/19 10:37 07/16/19 05:57 Flush - Normal Saline IVF 10 ml PRN PRN Administration Saline Flush Zidovudine 100 mg 07/14/19 14:00 07/18/19 05:07 Retrovir PO 100 mg Q8HR ESME Administration - Exam General Appearance: NAD, awake alert Eye: PERRL, anicteric sclera ENT: normocephalic atraumatic, no oropharyngeal lesions Neck: supple, symmetric, no JVD, no thyromegaly Heart: RRR, no murmur, no gallops Respiratory: CTAB, no wheezes, no rales Gastrointestinal: soft, non-tender, non-distended, normal bowel sounds Extremities: no cyanosis, no clubbing Skin: normal turgor Skin - other findings: please see wound care team note and picture Neurological: no focal deficits Musculoskeletal: normal tone, normal strength Psychiatric: normal affect, normal behavior, A&O x 3 Hosp A/P (1) Acute on chronic respiratory failure with hypoxemia Code(s): J96.21 - ACUTE AND CHRONIC RESPIRATORY FAILURE WITH HYPOXIA Status: Acute (2) Acute metabolic encephalopathy Code(s): G93.41 - METABOLIC ENCEPHALOPATHY Status: Acute (3) PNA (pneumonia) Code(s): J18.9 - PNEUMONIA, UNSPECIFIED ORGANISM Status: Acute Qualifiers: Pneumonia type: due to methicillin-resistant Staphylococcus aureus (MRSA) Laterality: bilateral Lung location: unspecified part of lung Qualified Code (s): J15.212 - Pneumonia due to Methicillin resistant Staphylococcus aureus (4) Physical deconditioning Code(s): R53.81 - OTHER MALAISE Status: Chronic (5) ESRD (end stage renal disease) on dialysis Code(s): N18.6 - END STAGE RENAL DISEASE; Z99.2 - DEPENDENCE ON RENAL DIALYSIS Status: Chronic (6) HIV (human immunodeficiency virus infection) Code(s): B20 - HUMAN IMMUNODEFICIENCY VIRUS [HIV] DISEASE Status: Chronic Qualifiers: HIV symptom status: unspecified Qualified Code(s): B20 - Human immunodeficiency virus [HIV] disease (7) Hepatitis C Code(s): B19.20 - UNSPECIFIED VIRAL HEPATITIS C WITHOUT HEPATIC COMA Status: Chronic Qualifiers: Viral hepatitis chronicity: chronic Hepatic coma status: without hepatic coma Qualified Code(s): B18.2 - Chronic viral hepatitis C (8) Anemia in chronic kidney disease Code(s): N18.9 - CHRONIC KIDNEY DISEASE, UNSPECIFIED; D63.1 - ANEMIA IN CHRONIC KIDNEY DISEASE Status: Chronic Qualifiers: Chronic kidney disease stage: on chronic dialysis Qualified Code(s): N18.6 - End stage renal disease; D63.1 - Anemia in chronic kidney disease; Z99.2 - Dependence on renal dialysis (9) Constipation Code(s): K59.00 - CONSTIPATION, UNSPECIFIED Status: Acute (10) Moderate protein malnutrition Code(s): E44.0 - MODERATE PROTEIN-CALORIE MALNUTRITION Status: Chronic (11) DM (diabetes mellitus) Code(s): E11.9 - TYPE 2 DIABETES MELLITUS WITHOUT COMPLICATIONS Status: Chronic Qualifiers: Diabetes mellitus type: type 2 Diabetes mellitus snf insulin use: without snf use Diabetes mellitus complication status: with kidney complications Diabetes mellitus complication detail: with chronic kidney disease Chronic kidney disease stage: on chronic dialysis Qualified Code(s) : E11.22 - Type 2 diabetes mellitus with diabetic chronic kidney disease; N18.6 - End stage renal disease; Z99.2 - Dependence on renal dialysis (12) HTN (hypertension) Code(s): I10 - ESSENTIAL (PRIMARY) HYPERTENSION Status: Chronic Qualifiers: Hypertension type: essential hypertension (13) Esophageal cancer Status: Chronic Qualifiers: Malignant neoplasm of esophagus location: unspecified location Qualified Code(s): C15.9 - Malignant neoplasm of esophagus, unspecified - Plan old records reviewed/req, continue antibiotics, home health care social worker Consults: Palliative Care 07/18 code status changed to full code discussed with family independence case manager about discharge planning high risk for readmission as hospice revoked limited option for DC home with family or SNU option continue vancomycin with HD HD as per nephrology medication reviewed prognosis is poor
[2019-07-18] MEDS: Vancomycin HCl 750 MG in Sodium Chloride 0.9% 250 ML 250 ML IVPB SCH (11:22)
[2019-07-18] MEDS ORDERED: Diabetic Tussin 200 MG/10 ML UDCUP PO PRN (11:32)
[2019-07-18] MEDS ORDERED: Loratadine 10 MG TAB PO PRN (11:32)
[2019-07-18] MEDS ORDERED: Bisacodyl 10 MG SUPP PR PRN (11:32)
[2019-07-18] MEDS ORDERED: Ondansetron ODT 4 MG TAB PO PRN (11:32)
[2019-07-18] MEDS ORDERED: Sodium Chloride 0.65% Nasal 44 ML BOT EA NARE PRN (11:32)
[2019-07-18] MEDS ORDERED: Artificial Tears 18 DROP/0.9 ML EA EYE PRN (11:32)
[2019-07-18] MEDS ORDERED: Loperamide HCl 2 MG CAP PO PRN (11:32)
[2019-07-18] MEDS ORDERED: Ondansetron PF 4 MG/2 ML Vial IVP PRN (11:32)
[2019-07-18] MEDS ORDERED: Zolpidem Tartrate 5 MG TAB PO PRN (11:32)
[2019-07-18] MEDS ORDERED: hydrALAZINE 20 MG/ML VIAL SLOW IVP PRN (11:32)
[2019-07-18] MEDS ORDERED: Calcium Carbonate 500 MG ChewTAB PO PRN (11:32)
[2019-07-18] MEDS ORDERED: Cepastat Lozenges 1 LOZ PO PRN (11:32)
[2019-07-18] MEDS: Lorazepam 2 MG/ML VIAL SLOW IVP PRN (13:44)
[2019-07-18] MEDS: Raltegravir Potassium 400 MG TAB PO SCH ×2 (13:55→21:36)
[2019-07-18] MEDS: Famotidine/PF 20 mg/2ml Vial SLOW IVP SCH (13:56)
[2019-07-18] MEDS: Folic Acid 1 MG TAB PO SCH (13:56)
[2019-07-18] MEDS: Sevelamer Carbonate 800 MG TAB PO SCH ×3 (13:58→17:48)
[2019-07-18] MEDS: Aspirin 325 MG TAB PO SCH (14:03)
--- NOTE | 2019-07-18 16:16 | PDOC.PALPN ---
Palliative Progress Note - Subjective Awake, alert. Complains of weakness and fatigue - Objective Vital Signs: Vital Signs - Most Recent Temp Pulse Resp BP Pulse Ox 98.5 F 76 16 163/92 H 92 L 07/18/19 08:00 07/18/19 13:31 07/18/19 13:31 07/18/19 08:00 07/18/19 13:31 - Physical Exam Constitutional: ill appearing HEENT: EOMI, moist MMs Musculoskeletal: diffuse muscle atrophy Neurology: moves all 4 limbs Deviation from normal: aggitated - Assessment (1) Esophageal cancer Current Visit: Yes Status: Chronic Qualifiers: Malignant neoplasm of esophagus location: unspecified location Qualified Code(s): C15.9 - Malignant neoplasm of esophagus, unspecified (2) Palliative care encounter Code(s): Z51.5 - ENCOUNTER FOR PALLIATIVE CARE Current Visit: No Status: Acute (3) Physical deconditioning Code(s): R53.81 - OTHER MALAISE Current Visit: No Status: Chronic (4) ESRD (end stage renal disease) on dialysis Code(s): N18.6 - END STAGE RENAL DISEASE; Z99.2 - DEPENDENCE ON RENAL DIALYSIS Current Visit: No Status: Chronic - Plan Plan: Patient desires to return to home setting, however family unable to care for him any longer in home setting secondary to disease progression and increase in assistance required with ADL. Hospice services revoked for admission and Hospice unable to care for patient in home setting as they feel not a safe discharge plan. Patient desires to be a full code. CM attempting to locate a facility for patient to have a safe discharge to. Therapeutic listing to sister as she has caregiver strain in caring for her brother. Palliative Care will sign off secondary to goals of care for patient identified. [45] minutes spent on this encounter with >50% of the time in counseling and coordination of care. - ROS Constitutional: alert, malaise, weakness ENT: alteration in dentition Respiratory: shortness of breath with extertion Musculoskeletal: limited mobility Psychological: anxiety, memory changes
--- NOTE | 2019-07-18 17:48 | PRG ---
DATE OF SERVICE: 07/17/2019 SUBJECTIVE: The patient is seen and examined, seems to be doing much better, noted with the following vital signs. OBJECTIVE: VITAL SIGNS: Temperature afebrile, pulse 77, respiratory rate of 16, O2 saturation 94%. Hemodynamically stable. HEENT: Unremarkable. CARDIOVASCULAR SYSTEM: First and second heart sounds were heard. RESPIRATORY SYSTEM: Clear to auscultation. DIGESTIVE SYSTEM: Revealed a benign abdomen with positive bowel sounds. EXTREMITIES: No peripheral edema. SKIN: No new gross rash. LYMPHATICS: No peripheral lymphadenopathy. IMPRESSION: 1. End-stage renal disease, on hemodialysis. 2. Sepsis, on treatment. 3. Failure to thrive. PLAN: 1. There is no indication for dialysis today. 2. The patient to continue with the scheduled Monday, , and Monday dialysis. 3. Further management will be dependent on the clinical course. Job ID: [id number]
--- NOTE | 2019-07-18 17:54 | PRG ---
DATE OF SERVICE: 07/18/2019 SUBJECTIVE: The patient is seen and examined, doing very well on dialysis, hemodynamically stable. OBJECTIVE: VITAL SIGNS: Temperature of 98.5, pulse 77, respirations 18, O2 saturation of 91% with blood pressure . HEENT: Unremarkable. CARDIOVASCULAR: First and second heart sounds were heard. RESPIRATORY: Clear to auscultation. DIGESTIVE: Revealed a benign abdomen with positive bowel sounds. EXTREMITIES: No peripheral edema. SKIN: No new gross rash. LYMPHATICS: No peripheral lymphadenopathy. IMPRESSION: 1. End-stage renal disease, on hemodialysis. 2. Sepsis, on treatment. 3. Labile hemodynamics, on steroid supplementation. PLAN: 1. The patient's hydrocortisone to be discontinued, in place of this patient to be started on or off fludrocortisone. 2. The patient on dialysis in accordance with the schedule to continue on Monday, , and Monday. 3. Further management will be dependent on the clinical course as well as . Job ID: [id number]
[2019-07-18] MEDS: Atorvastatin Calcium 10 MG TAB PO SCH (21:36)
[2019-07-19] MEDS: Ipratropium Bromide 2.5 ml Neb NEB SCH ×4 (00:38→19:36)
[2019-07-19] MEDS: Acetaminophen/Codeine 30-300mg Tablet PO PRN ×3 (04:11→17:10)
[2019-07-19 04:21] LABS: #Lymphocytes 1.1 thou/uL (1.20-3.40); #Monocytes 0.3 thou/uL (0.11-0.59); #Neutrophils 2.5 thou/uL (1.40-6.50); %Eosinophils 0.3 % (0.0-10.0); %Lymphocytes 27.1 % (21.0-51.0); %Monocytes 7.7 % (0.0-10.0); Hemoglobin 11.1 g/dL (14.0-18.0); Mean Corpuscular HGB CONC 31.5 g/dL (32.0-36.0); Mean Corpuscular Hemoglobin 33.5 pg (27.0-31.0); Mean Platelet Volume 8.3 fL (7.4-10.4); Platelet Count 163 thou/uL (130-400); RBC Distribution Width 14.8 % (11.5-14.5); White Blood Cell (WBC) Count 3.9 thou/uL (4.8-10.8)
[2019-07-19 04:39] LABS: Anion Gap 12 mmol/L (10-20); BUN (Urea Nitrogen) 22 mg/dL (8.4-25.7); Calc. Creatinine Clearance 28 mL/min (70-130); Calcium 8.8 mg/dL (7.8-10.44); Carbon Dioxide 29 mmol/L (23-31); Chloride 98 mmol/L (98-107); Estimated GFR-MDRD 29; Glucose 104 mg/dL (80-115); Potassium 3.6 mmol/L (3.5-5.1); Sodium 135 mmol/L (136-145)
[2019-07-19] MEDS: Aspirin 325 MG TAB PO SCH (09:28)
[2019-07-19] MEDS: Famotidine/PF 20 mg/2ml Vial SLOW IVP SCH (09:28)
[2019-07-19] MEDS: Fludrocortisone Acetate 0.1 MG TAB PO SCH (09:28)
[2019-07-19] MEDS: Sevelamer Carbonate 800 MG TAB PO SCH ×3 (09:28→17:08)
[2019-07-19] MEDS: Folic Acid 1 MG TAB PO SCH (09:29)
[2019-07-19] MEDS: Raltegravir Potassium 400 MG TAB PO SCH ×2 (09:29→21:28)
--- NOTE | 2019-07-19 11:29 | PDOC.HOSPP ---
- Subjective Encounter Date: 07/19/19 Encounter Time: 07:00 Subjective: Patient seen and examined. No new complaints. No overnight events - Objective Vital Signs & Weight: Vital Signs (12 hours) Temp Pulse Resp BP Pulse Ox 07/19/19 08:00 97.6 F 72 18 168/84 H 97 07/19/19 07:38 84 16 Weight Admit Weight 158 lb 11.725 oz Weight 154 lb 12.232 oz Most Recent Monitor Data Heart Rate from ECG 106 NIBP 92/57 NIBP BP-Mean 68 Respiration from ECG 17 SpO2 88 I&O: 07/18/19 07/19/19 07/20/19 06:59 06:59 06:59 Output Total 1500 Balance -1500 Result Diagrams: 07/19/19 04:05 07/19/19 04:05 Hospitalist ROS - Review of Systems ENT: denies: ear pain, ear discharge, nose pain, nose discharge, nose congestion , mouth pain, mouth swelling, throat pain, throat swelling, other Respiratory: denies: cough, dry, shortness of breath, hemoptysis, SOB with excertion, pleuritic pain, sputum, wheezing, other Cardiovascular: denies: chest pain, palpitations, orthopnea, paroxysmal noc. dyspnea, edema, light headedness, other Gastrointestinal: denies: nausea, vomiting, abdominal pain, diarrhea, constipation, melena, hematochezia, other Genitourinary: denies: dysuria, frequency, incontinence, hematuria, retention, other - Medication Medications: Active Medications Generic Name Dose Route Start Last Admin Trade Name Freq PRN Reason Stop Dose Admin Acetaminophen/Codeine Phosphate 1 tab 07/14/19 11:00 07/19/19 11:10 Tylenol #3 PO 1 tab Q6H PRN Administration Pain Aspirin 325 mg 07/15/19 09:00 07/19/19 09:28 Aspirin PO 325 mg DAILY ESME Administration Atorvastatin Calcium 10 mg 07/14/19 21:00 07/18/19 21:36 Lipitor PO 10 mg HS ESME Administration Etravirine 200 mg 07/14/19 18:00 07/19/19 09:28 Intelence PO 200 mg BID-PC ESME Administration Famotidine 20 mg 07/14/19 09:00 07/19/19 09:28 Pepcid SLOW IVP 20 mg DAILY ESME Administration Fludrocortisone Acetate 0.1 mg 07/19/19 09:00 07/19/19 09:28 Florinef PO 0.1 mg DAILY ESME Administration Folic Acid 1 mg 07/15/19 09:00 07/19/19 09:29 Folvite PO 1 mg DAILY ESME Administration Vancomycin HCl 1 gm/ Device 200 mls @ 200 mls/hr 07/13/19 13:00 07/16/19 12: 19 IVPB 200 mls WILLCALL ESME Administration Vancomycin HCl 750 mg/ Sodium 250 mls @ 250 mls/hr 07/13/19 13:00 07/18/19 11 :22 Chloride IVPB 250 mls WILLCALL ESME Administration Ipratropium [place] 2.5 ml 07/14/19 13:00 07/19/19 07:38 Atrovent NEB 2.5 ml [id number] ESME Administration Lorazepam 1 mg 07/16/19 17:41 07/18/19 13:44 Ativan SLOW IVP 1 mg Q4H PRN Administration Anxiety/Agitation Pantoprazole Sodium 40 mg 07/15/19 09:00 07/19/19 09:29 Protonix PO 40 mg DAILY ESME Administration Raltegravir 400 mg 07/14/19 21:00 07/19/19 09:29 Isentress PO 400 mg BID ESME Administration Sevelamer Carbonate 800 mg 07/14/19 12:00 07/19/19 09:28 Renvela PO 800 mg TID-WM ESME Administration Sodium Chloride 10 ml 07/15/19 21:00 07/19/19 09:30 Flush - Normal Saline IVF 10 ml Q12HR ESME Administration Sodium Chloride 10 ml 07/15/19 10:37 07/16/19 05:57 Flush - Normal Saline IVF 10 ml PRN PRN Administration Saline Flush Zidovudine 100 mg 07/14/19 14:00 07/19/19 09:27 Retrovir PO 100 mg Q8HR ESME Administration - Exam General Appearance: NAD, awake alert Eye: PERRL, anicteric sclera ENT: normocephalic atraumatic, no oropharyngeal lesions Neck: supple, symmetric, no JVD, no thyromegaly Heart: RRR, no murmur, no gallops, no rubs Respiratory: CTAB, no wheezes, no rales, no ronchi Gastrointestinal: soft, non-tender, non-distended, normal bowel sounds Extremities - other findings: left AKA Skin: normal turgor, no lesions Neurological: no focal deficits Musculoskeletal: normal tone, normal strength Psychiatric: normal affect, normal behavior Hosp A/P (1) Acute on chronic respiratory failure with hypoxemia Code(s): J96.21 - ACUTE AND CHRONIC RESPIRATORY FAILURE WITH HYPOXIA Status: Acute (2) Acute metabolic encephalopathy Code(s): G93.41 - METABOLIC ENCEPHALOPATHY Status: Acute (3) PNA (pneumonia) Code(s): J18.9 - PNEUMONIA, UNSPECIFIED ORGANISM Status: Acute Qualifiers: Pneumonia type: due to methicillin-resistant Staphylococcus aureus (MRSA) Laterality: bilateral Lung location: unspecified part of lung Qualified Code (s): J15.212 - Pneumonia due to Methicillin resistant Staphylococcus aureus (4) Physical deconditioning Code(s): R53.81 - OTHER MALAISE Status: Chronic (5) ESRD (end stage renal disease) on dialysis Code(s): N18.6 - END STAGE RENAL DISEASE; Z99.2 - DEPENDENCE ON RENAL DIALYSIS Status: Chronic (6) HIV (human immunodeficiency virus infection) Code(s): B20 - HUMAN IMMUNODEFICIENCY VIRUS [HIV] DISEASE Status: Chronic Qualifiers: HIV symptom status: unspecified Qualified Code(s): B20 - Human immunodeficiency virus [HIV] disease (7) Hepatitis C Code(s): B19.20 - UNSPECIFIED VIRAL HEPATITIS C WITHOUT HEPATIC COMA Status: Chronic Qualifiers: Viral hepatitis chronicity: chronic Hepatic coma status: without hepatic coma Qualified Code(s): B18.2 - Chronic viral hepatitis C (8) Anemia in chronic kidney disease Code(s): N18.9 - CHRONIC KIDNEY DISEASE, UNSPECIFIED; D63.1 - ANEMIA IN CHRONIC KIDNEY DISEASE Status: Chronic Qualifiers: Chronic kidney disease stage: on chronic dialysis Qualified Code(s): N18.6 - End stage renal disease; D63.1 - Anemia in chronic kidney disease; Z99.2 - Dependence on renal dialysis (9) Constipation Code(s): K59.00 - CONSTIPATION, UNSPECIFIED Status: Acute (10) Moderate protein malnutrition Code(s): E44.0 - MODERATE PROTEIN-CALORIE MALNUTRITION Status: Chronic (11) DM (diabetes mellitus) Code(s): E11.9 - TYPE 2 DIABETES MELLITUS WITHOUT COMPLICATIONS Status: Chronic Qualifiers: Diabetes mellitus type: type 2 Diabetes mellitus senior care insulin use: without senior care use Diabetes mellitus complication status: with kidney complications Diabetes mellitus complication detail: with chronic kidney disease Chronic kidney disease stage: on chronic dialysis Qualified Code(s) : E11.22 - Type 2 diabetes mellitus with diabetic chronic kidney disease; N18.6 - End stage renal disease; Z99.2 - Dependence on renal dialysis (12) HTN (hypertension) Code(s): I10 - ESSENTIAL (PRIMARY) HYPERTENSION Status: Chronic Qualifiers: Hypertension type: essential hypertension (13) Esophageal cancer Status: Chronic Qualifiers: Malignant neoplasm of esophagus location: unspecified location Qualified Code(s): C15.9 - Malignant neoplasm of esophagus, unspecified - Plan old records reviewed/req, continue antibiotics, social insurance administrator 07/18 code status changed to full code discussed with case filler about discharge planning high risk for readmission as hospice revoked limited option for DC home with family or SNU option continue vancomycin with HD HD as per nephrology medication reviewed prognosis is poor 07/19 pt reported that he wanted to go home but doubt he has family support to provide his need and level of care will consult ID today for duration of antibiotic with HD and any more investigation required medication reviewed and continue to provide supportive care discharge planning
[2019-07-19] MEDS: traMADol HCl 50 MG TAB PO PRN (13:48)
--- NOTE | 2019-07-19 16:16 | CON ---
DATE OF CONSULTATION: 07/19/2019 REASON FOR CONSULTATION: Bacteremia. HISTORY OF PRESENT ILLNESS: A 63-year-old, who is known to us from previous visits with a longstanding history of HIV infection, well controlled on antiretroviral therapy with an undetectable viral load in February this year as well as type 2 diabetes and end-stage renal disease, on hemodialysis with an AV fistula on the left upper extremity. I last saw him in February when he presented with a recently diagnosed esophageal cancer, presumably in remission after chemoradiation therapy. He also had C. difficile colitis which was treated and hematemesis due to diffuse gastritis. This time, he was admitted with confusional state and mechanical fall. The patient uses a wheelchair for mobility after previous left lower extremity amputation, and he was brought to the emergency room. He did not have any headaches. No seizure activity. No chills or fever documented. Some cough and dyspnea. No abdominal pain or diarrhea. Initial findings included a temperature 97.8, respiratory rate 16, pulse 99, blood pressure 90/58, and the patient appeared chronically ill. The patient had bruising in the upper chest. He had the fistula which was functional in the left upper extremity. There was quite a bit of pain on the range of motion of the left and the right shoulders. Left [id number] amputation site appeared intact. Initial labs with white cell count 4.5, hemoglobin 11.7, platelets 169 with a normal differential. Chemistry with a sodium 134, creatinine 6.79. Liver profile was normal except for alkaline phosphatase 131, which is probably bone in origin. Troponin 0.109. Albumin 3.6, globulin 4.2. One out of two sets of blood cultures with MRSA. This was obtained from the right common femoral vein. The other sample from the right arm was no growth in 5 days. Imaging included a chest, abdomen, and pelvis CT which had a lot of motion artifact. There was a comminuted fracture in the medial left clavicle, a fracture in the left scapular body, and some rib fractures as well on the right side. There were bibasilar airspace consolidation suspicious for aspiration pneumonia, cardiomegaly, constipation, and goiter. Currently, Mr. Villeda is awake. He is in the oncology unit, appears chronically ill, but not in acute distress. No headaches. No change in visual symptoms. He has back pain mostly in the lower back area following this event and bilateral shoulder pain which is moderate to intense. No dyspnea. No cough. No abdominal pain. He had some urinary output since admission. No neurological symptoms. PAST MEDICAL HISTORY: Longstanding HIV infection, well controlled on AZT, etravirine, and Isentress, last viral load was less than 20 in February, CD4 around 300; type 2 diabetes; end-stage renal disease, on hemodialysis through a left upper extremity AV fistula; episode of Clostridium difficile colitis; recently diagnosed esophageal cancer, presumably in remission after chemoradiation therapy; port in the right subclavian location for treatment of esophageal cancer; gastritis with hematemesis and melena in the recent past; COPD; hypertension; and obstructive sleep apnea. FAMILY HISTORY: Noncontributory. SOCIAL HISTORY: Former smoker. Lives in [place] by himself. PAST SURGICAL HISTORY: Cholecystectomy, forearm stromal tumor resected, and left knee replacement and infection and then eventual left AKA. ALLERGY HISTORY: 1. Clindamycin. 2. Paxil. 3. Keflex. 4. Cipro. 5. Dalteparin. 6. Porcine insulin. CURRENT MEDICATIONS: Include: 1. Proventil. 2. Aspirin. 3. Lipitor. 4. Dulcolax. 5. Tums. 6. Intelence. 7. Pepcid. 8. Florinef. 9. Folvite. 10. Haldol. 11. Apresoline. 12. Atrovent. 13. Imodium. 14. Claritin. 15. Ativan. 16. Vancomycin sliding scale. 17. Pantoprazole. 18. Isentress. 19. Renvela. PHYSICAL EXAMINATION: VITAL SIGNS: T-max 101. He has been afebrile since. BP 160/80, pulse 72, respirations 18, O2 saturation 97%. SKIN: Shows the left upper extremity AV fistula with dilated veins and the access port in the right subclavian location. The patient has a few areas of minor skin breakdown in the presacral region. There is an area of absence of the toenail on the first toe, right foot. There is a round ulcer about 1 cm in the right lower extremity thigh region. HEENT: Ocular movements are conjugate. Oral cavity with numerous missing teeth. NECK: Supple. No jugular vein distention. LUNGS: Symmetric, clear breath sounds. HEART: S1 and S2 without murmurs. The subclavian port is not tender, and it is accessed at this time. ABDOMEN: Soft. Not distended or tender. BACK: Mild back tenderness EXTREMITIES: Marked tenderness in the right and left shoulders. LABORATORY DATA: The latest labs: Sodium 135, creatinine 2.72. White cell count 3.9, hemoglobin 11, platelets 163. Cultures, as noted above. ASSESSMENT: 1. Longstanding human immunodeficiency virus infection, well controlled. 2. Type 2 diabetes with end-stage renal disease. 3. Esophageal cancer with port having finished chemotherapy. The status of the cancer is not well documented. I believe he has been treated elsewhere, reportedly in remission, which is something hard with esophageal cancer. 4. Methicillin-resistant Staphylococcus aureus bacteremia, 1 out of 2 sets with the port in situ. 5. Multiple areas of joint pain associated with the fall including both shoulders and lower back. DISCUSSION: The patient has MRSA bacteremia. Those are unfortunately associated with poor outcomes in almost half of the patients with readmission in approximately 20% within the next few months, and in this case, I would treat aggressively and recommend removal of the port and sliding scale vancomycin for at least 8 weeks and careful monitoring. May need to image his lower back and the shoulders and follow up because of concern with seeding of the area by Staphylococcus aureus. Endocarditis is less likely since the bacteremia is not continuous. Lung involvement is possible in those areas defined by the CT scan. Job ID: [id number] MTDD
[2019-07-19] MEDS ORDERED: Lidocaine 1% w/Epinephrine 1:100K 20 ML VIAL ONE (17:02)
[2019-07-19] MEDS ORDERED: Meperidine HCl/PF 25 MG/ML VIAL ONE (21:00)
[2019-07-19] MEDS: Atorvastatin Calcium 10 MG TAB PO SCH (21:28)
[2019-07-20] MEDS: Ipratropium Bromide 2.5 ml Neb NEB SCH ×4 (00:51→19:36)
[2019-07-20] MEDS: traMADol HCl 50 MG TAB PO PRN ×2 (02:43→13:19)
[2019-07-20 04:01] LABS: #Eosinphils 0.1 thou/uL (0.0-0.7); #Lymphocytes 1.2 thou/uL (1.20-3.40); #Monocytes 0.3 thou/uL (0.11-0.59); #Neutrophils 2.5 thou/uL (1.40-6.50); %Basophils 0.1 % (0.0-1.0); %Eosinophils 1.4 % (0.0-10.0); %Lymphocytes 28.7 % (21.0-51.0); %Monocytes 7.9 % (0.0-10.0); %Neutrophils 61.9 % (42.0-75.0); Hemoglobin 11.1 g/dL (14.0-18.0); Mean Corpuscular HGB CONC 31.7 g/dL (32.0-36.0); Mean Platelet Volume 8.3 fL (7.4-10.4); Platelet Count 175 thou/uL (130-400); Red Blood Cell (RBC) Count 3.26 mill/uL (4.70-6.10)
[2019-07-20 04:20] LABS: Anion Gap 14 mmol/L (10-20); BUN (Urea Nitrogen) 39 mg/dL (8.4-25.7); Calc. Creatinine Clearance 22 mL/min (70-130); Calcium 8.9 mg/dL (7.8-10.44); Carbon Dioxide 30 mmol/L (23-31); Chloride 96 mmol/L (98-107); Estimated GFR-MDRD 22; Glucose 78 mg/dL (80-115); Potassium 4.7 mmol/L (3.5-5.1); Sodium 135 mmol/L (136-145)
[2019-07-20] MEDS: cloNIDine 0.1 MG TAB PO PRN (06:30)
[2019-07-20] MEDS: Aspirin 325 MG TAB PO SCH (07:50)
[2019-07-20] MEDS: Raltegravir Potassium 400 MG TAB PO SCH ×2 (07:50→21:46)
[2019-07-20] MEDS: Sevelamer Carbonate 800 MG TAB PO SCH ×3 (07:50→16:08)
[2019-07-20] MEDS: Famotidine/PF 20 mg/2ml Vial SLOW IVP SCH (07:51)
[2019-07-20] MEDS: Folic Acid 1 MG TAB PO SCH (07:51)
[2019-07-20 08:32] LABS: Vancomycin, Random 12.1 ug/mL (See Comment)
[2019-07-20] MEDS: Fludrocortisone Acetate 0.1 MG TAB PO SCH (08:45)
[2019-07-20] MEDS ORDERED: Ketorolac Tromethamine 30 MG/ML VIAL IVP PRN (09:58)
--- NOTE | 2019-07-20 10:00 | PDOC.HOSPP ---
- Subjective Encounter Date: 07/20/19 Encounter Time: 07:00 Subjective: seen in HD, has chronic pain - Objective Vital Signs & Weight: Vital Signs (12 hours) Temp Pulse Resp BP BP Pulse Ox 07/20/19 08:00 98.5 F 78 18 161/87 H 94 L 07/20/19 06:30 179/91 H 07/20/19 06:25 179/91 H 07/20/19 05:07 67 07/20/19 05:00 98.7 F 75 17 197/110 H 96 07/20/19 00:51 67 16 98 07/20/19 00:37 98.2 F 73 17 170/83 H 97 07/19/19 22:03 98.4 F 70 18 174/88 H 96 Weight Admit Weight 158 lb 11.725 oz Weight 154 lb 12.232 oz Most Recent Monitor Data Heart Rate from ECG 106 NIBP 92/57 NIBP BP-Mean 68 Respiration from ECG 17 SpO2 88 I&O: 07/19/19 07/20/19 07/21/19 06:59 06:59 06:59 Output Total 1500 Balance -1500 Result Diagrams: 07/20/19 03:50 07/20/19 03:50 Hospitalist ROS - Review of Systems Constitutional: denies: fever, chills, sweats, weakness, malaise, other Eyes: denies: pain, vision change, conjunctivae inflammation, eyelid inflammation, redness, other ENT: denies: ear pain, ear discharge, nose pain, nose discharge, nose congestion , mouth pain, mouth swelling, throat pain, throat swelling, other Respiratory: denies: cough, dry, shortness of breath, hemoptysis, SOB with excertion, pleuritic pain, sputum, wheezing, other Cardiovascular: denies: chest pain, palpitations, orthopnea, paroxysmal noc. dyspnea, edema, light headedness, other Gastrointestinal: denies: nausea, vomiting, abdominal pain, diarrhea, constipation, melena, hematochezia, other Genitourinary: denies: dysuria, frequency, incontinence, hematuria, retention, other - Medication Medications: Active Medications Generic Name Dose Route Start Last Admin Trade Name Freq PRN Reason Stop Dose Admin Acetaminophen/Codeine Phosphate 1 tab 07/14/19 11:00 07/19/19 17:10 Tylenol #3 PO 1 tab Q6H PRN Administration Pain Aspirin 325 mg 07/15/19 09:00 07/20/19 07:50 Aspirin PO 325 mg DAILY ESME Administration Atorvastatin Calcium 10 mg 07/14/19 21:00 07/19/19 21:28 Lipitor PO 10 mg HS ESME Administration Clonidine 0.1 mg 07/20/19 06:24 07/20/19 06:30 Catapres PO 0.1 mg Q4H PRN Administration SBP > 160 use second Etravirine 200 mg 07/14/19 18:00 07/20/19 07:50 Intelence PO 200 mg BID-PC ESME Administration Famotidine 20 mg 07/14/19 09:00 07/20/19 07:51 Pepcid SLOW IVP 20 mg DAILY ESME Administration Fludrocortisone Acetate 0.1 mg 07/19/19 09:00 07/19/19 09:28 Florinef PO 0.1 mg DAILY ESME Administration Folic Acid 1 mg 07/15/19 09:00 07/20/19 07:51 Folvite PO 1 mg DAILY ESME Administration Hydralazine HCl 10 mg 07/18/19 11:32 07/20/19 05:07 Apresoline SLOW IVP 10 mg Q4H PRN Administration SBP > 180 and HR < 70 Vancomycin HCl 1 gm/ Device 200 mls @ 200 mls/hr 07/13/19 13:00 07/16/19 12: 19 IVPB 200 mls WILLCALL ESME Administration Vancomycin HCl 750 mg/ Sodium 250 mls @ 250 mls/hr 07/13/19 13:00 07/18/19 11 :22 Chloride IVPB 250 mls WILLCALL ESME Administration Ipratropium [place] 2.5 ml 07/14/19 13:00 07/20/19 08:25 Atrovent NEB Not Given [id number] ESME Lorazepam 1 mg 07/16/19 17:41 07/18/19 13:44 Ativan SLOW IVP 1 mg Q4H PRN Administration Anxiety/Agitation Pantoprazole Sodium 40 mg 07/15/19 09:00 07/20/19 07:51 Protonix PO 40 mg DAILY ESME Administration Raltegravir 400 mg 07/14/19 21:00 07/20/19 07:50 Isentress PO 400 mg BID ESME Administration Sevelamer Carbonate 800 mg 07/14/19 12:00 07/20/19 07:50 Renvela PO 800 mg TID-WM ESME Administration Sodium Chloride 10 ml 07/15/19 21:00 07/20/19 07:51 Flush - Normal Saline IVF 10 ml Q12HR ESME Administration Sodium Chloride 10 ml 07/15/19 10:37 07/16/19 05:57 Flush - Normal Saline IVF 10 ml PRN PRN Administration Saline Flush Tramadol HCl 50 mg 07/19/19 09:13 07/20/19 02:43 Ultram PO 50 mg BIDPRN PRN Administration Pain Zidovudine 100 mg 07/14/19 14:00 07/20/19 06:14 Retrovir PO 100 mg Q8HR ESME Administration - Exam General Appearance: NAD, awake alert Eye: PERRL, anicteric sclera ENT: normocephalic atraumatic, no oropharyngeal lesions Neck: supple, symmetric, no JVD, no thyromegaly Heart: RRR, no murmur, no gallops, no rubs Respiratory: CTAB, no wheezes, no rales Gastrointestinal: soft, non-tender, non-distended, normal bowel sounds Extremities: no cyanosis, no clubbing Skin: normal turgor, no lesions Neurological: no focal deficits Musculoskeletal: normal tone, normal strength Psychiatric: normal affect, normal behavior Hosp A/P (1) Acute on chronic respiratory failure with hypoxemia Code(s): J96.21 - ACUTE AND CHRONIC RESPIRATORY FAILURE WITH HYPOXIA Status: Acute (2) Acute metabolic encephalopathy Code(s): G93.41 - METABOLIC ENCEPHALOPATHY Status: Acute (3) PNA (pneumonia) Code(s): J18.9 - PNEUMONIA, UNSPECIFIED ORGANISM Status: Acute Qualifiers: Pneumonia type: due to methicillin-resistant Staphylococcus aureus (MRSA) Laterality: bilateral Lung location: unspecified part of lung Qualified Code (s): J15.212 - Pneumonia due to Methicillin resistant Staphylococcus aureus (4) Physical deconditioning Code(s): R53.81 - OTHER MALAISE Status: Chronic (5) ESRD (end stage renal disease) on dialysis Code(s): N18.6 - END STAGE RENAL DISEASE; Z99.2 - DEPENDENCE ON RENAL DIALYSIS Status: Chronic (6) HIV (human immunodeficiency virus infection) Code(s): B20 - HUMAN IMMUNODEFICIENCY VIRUS [HIV] DISEASE Status: Chronic Qualifiers: HIV symptom status: unspecified Qualified Code(s): B20 - Human immunodeficiency virus [HIV] disease (7) Hepatitis C Code(s): B19.20 - UNSPECIFIED VIRAL HEPATITIS C WITHOUT HEPATIC COMA Status: Chronic Qualifiers: Viral hepatitis chronicity: chronic Hepatic coma status: without hepatic coma Qualified Code(s): B18.2 - Chronic viral hepatitis C (8) Anemia in chronic kidney disease Code(s): N18.9 - CHRONIC KIDNEY DISEASE, UNSPECIFIED; D63.1 - ANEMIA IN CHRONIC KIDNEY DISEASE Status: Chronic Qualifiers: Chronic kidney disease stage: on chronic dialysis Qualified Code(s): N18.6 - End stage renal disease; D63.1 - Anemia in chronic kidney disease; Z99.2 - Dependence on renal dialysis (9) Constipation Code(s): K59.00 - CONSTIPATION, UNSPECIFIED Status: Acute (10) Moderate protein malnutrition Code(s): E44.0 - MODERATE PROTEIN-CALORIE MALNUTRITION Status: Chronic (11) DM (diabetes mellitus) Code(s): E11.9 - TYPE 2 DIABETES MELLITUS WITHOUT COMPLICATIONS Status: Chronic Qualifiers: Diabetes mellitus type: type 2 Diabetes mellitus half-way insulin use: without half-way use Diabetes mellitus complication status: with kidney complications Diabetes mellitus complication detail: with chronic kidney disease Chronic kidney disease stage: on chronic dialysis Qualified Code(s) : E11.22 - Type 2 diabetes mellitus with diabetic chronic kidney disease; N18.6 - End stage renal disease; Z99.2 - Dependence on renal dialysis (12) HTN (hypertension) Code(s): I10 - ESSENTIAL (PRIMARY) HYPERTENSION Status: Chronic Qualifiers: Hypertension type: essential hypertension (13) Esophageal cancer Status: Chronic Qualifiers: Malignant neoplasm of esophagus location: unspecified location Qualified Code(s): C15.9 - Malignant neoplasm of esophagus, unspecified - Plan old records reviewed/req, certified social workers in health care 07/18 code status changed to full code discussed with case investigator about discharge planning high risk for readmission as hospice revoked limited option for DC home with family or SNU option continue vancomycin with HD HD as per nephrology medication reviewed prognosis is poor 07/19 pt reported that he wanted to go home but doubt he has family support to provide his need and level of care will consult ID today for duration of antibiotic with HD and any more investigation required medication reviewed and continue to provide supportive care discharge planning 07/20 continue HD as per nephrology add toradol for pain continue vancomycin medication reviewed and continue to provide supportive care await placement
[2019-07-20] MEDS: Acetaminophen/Codeine 30-300mg Tablet PO PRN ×2 (10:12→21:50)
[2019-07-20] MEDS: Vancomycin HCl 750 MG in Sodium Chloride 0.9% 250 ML 250 ML IVPB SCH (10:52)
--- NOTE | 2019-07-20 13:05 | PDOC.GSCN ---
Surgery Consult: [facility] - Consult details Date: 07/19/19 Time: 16:00 History of present illness: 07/20/19 13:02 Patient with end-stage renal failure and multiple other medical issues who was admitted to the hospital with hypotension and acute mental status changes. He has had one out of 4 blood cultures positive for MRSA and his infectious disease specialist has requested removal of his Mediport. This was placed for treatment of esophageal cancer, but the patient states it hasn't been used since December and that there are no plans to do any further chemotherapy or radiation. His most recent endoscopy did not show any evidence of residual disease in the distal esophagus. Clinically he is back at his baseline in terms of function and his vital signs and mental status have been normal. 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 Dr. Casas had previously taken to the operating room to repair the pseudoaneurysms of his fistula had to cancel his surgery since the patient could not be intubated due to his goiter. Surgery Consult: ROS - Review of Systems All systems: 10 systems reviewed and no additional complaints unless stated below. Constitutional: reports: as per [facility] Surgery Consult: [facility] Source: patient, other (Chart review) Past Medical History: End-stage renal failure on dialysis, hypertension, HIV positive, esophageal cancer, multinodular goiter, congestive heart failure Past Surgical History: Left AV fistula, right-sided Mediport, appendectomy, laparotomy for obstruction , left knee replacement, left above-knee amputation - Past Social History Smoking Status: Former smoker Alcohol Use: none Drug Use History: none Surgery Consult: Exam - Vital signs Vital signs: Vital Signs - Most Recent Temp Pulse Resp BP Pulse Ox 98.5 F 78 18 161/87 H 94 L 07/20/19 08:00 07/20/19 08:00 07/20/19 08:00 07/20/19 08:00 07/20/19 08:00 - Physical Exam General: no distress, well developed, well nourished Eye: normal ocular movement, PERRL ENT: no congestion, no hearing loss, normal mucosa, normal nares, normal pinna Neck: no lymphadectomy, no telma distention, trachea midline, diffuse goiter Respiratory: clear to auscultation, clear to percussion, normal expansion, normal respiratory effort Abdomen: non tender, soft Integumentary: other (Sacral decubitus ulcer, likely stage II) Neurologic: normal coordination, normal sensation Musculoskeletal: normal posture Psychiatric: memory intact, oriented to time, oriented to person, oriented to place, speech is normal Surgery Consult: Meds - Medications MAR Reviewed: Yes Medications: Current Medications Acetaminophen/Codeine Phosphate (Tylenol #3) 1 tab PO Q6H PRN PRN Reason: Pain Last Admin: 07/20/19 10:12 Dose: 1 tab Albuterol Sulfate (Proventil Hfa) 2 puff INH Q6H PRN PRN Reason: Dyspnea/Wheezing/SOB Artificial Tears (Tears Naturale) 2 drop EA EYE PRN PRN PRN Reason: Dry Eyes Aspirin (Aspirin) 325 mg PO DAILY [facility] Last Admin: 07/20/19 07:50 Dose: 325 mg Atorvastatin Calcium (Lipitor) 10 mg PO HS [facility] Last Admin: 07/19/19 21:28 Dose: 10 mg Bisacodyl (Dulcolax) 10 mg [place] DAILYPRN PRN PRN Reason: Constipation Calcium Carbonate (Tums) 1,000 mg PO Q4H PRN PRN Reason: Heartburn or Indigestion Clonidine (Catapres) 0.1 mg PO Q4H PRN PRN Reason: SBP > 160 use second Last Admin: 07/20/19 06:30 Dose: 0.1 mg Etravirine (Intelence) 200 mg PO BID-PC [facility] Last Admin: 07/20/19 07:50 Dose: 200 mg Famotidine (Pepcid) 20 mg SLOW IVP DAILY [facility] Last Admin: 07/20/19 07:51 Dose: 20 mg Fludrocortisone Acetate (Florinef) 0.1 mg PO DAILY [facility] Last Admin: 07/20/19 08:45 Dose: 0.1 mg Folic Acid (Folvite) 1 mg PO DAILY [facility] Last Admin: 07/20/19 07:51 Dose: 1 mg Guaifenesin (Robitussin Sf) 200 mg PO Q4H PRN PRN Reason: Cough Haloperidol Lactate (Haldol) 5 mg SLOW IVP Q4H PRN PRN Reason: Anxiety/Agitation Hydralazine HCl (Apresoline) 10 mg SLOW IVP Q4H PRN PRN Reason: SBP > 180 and HR < 70 Last Admin: 07/20/19 05:07 Dose: 10 mg Vancomycin HCl 1.25 gm/ Sodium (Chloride) 250 mls @ 166.667 mls/hr IVPB WILLCALL [facility] Vancomycin HCl 1 gm/ Device 200 mls @ 200 mls/hr IVPB WILLCALL [facility] Last Admin: 07/16/19 12:19 Dose: 200 mls Vancomycin HCl 750 mg/ Sodium (Chloride) 250 mls @ 250 mls/hr IVPB WILLCALL [facility] Last Admin: 07/20/19 10:52 Dose: 250 mls Vancomycin HCl 500 mg/ Sodium (Chloride) 100 mls @ 100 mls/hr IVPB WILLCALL [facility] Ipratropium [place] (Atrovent) 2.5 ml NEB [id number] [facility] Last Admin: 07/20/19 08:25 Dose: Not Given Ketorolac Tromethamine (Toradol) 15 mg IVP Q6H PRN PRN Reason: Mild-Moderate Pain (1-5) Stop: 07/25/19 09:59 Loperamide HCl (Imodium) 2 mg PO PRN PRN PRN Reason: Diarrhea/Loose Stools Loratadine (Claritin) 10 mg PO DAILYPRN PRN PRN Reason: Sinus Symptoms Lorazepam (Ativan) 1 mg SLOW IVP Q4H PRN PRN Reason: Anxiety/Agitation Last Admin: 07/18/19 13:44 Dose: 1 mg Miscellaneous Medication (Pharmacy To Dose) 1 each IVPB .VANCOMYCIN PRN PRN Reason: Pharmacy to dose Hold Vancomycin For (Level >20) 0 each FS .AT DIALYSIS [facility] Ondansetron HCl (Zofran Odt) 4 mg PO Q6H PRN PRN Reason: Nausea/Vomiting Ondansetron HCl (Zofran) 4 mg IVP Q6H PRN PRN Reason: Nausea/Vomiting Pantoprazole Sodium (Protonix) 40 mg PO DAILY [facility] Last Admin: 07/20/19 07:51 Dose: 40 mg Raltegravir (Isentress) 400 mg PO BID [facility] Last Admin: 07/20/19 07:50 Dose: 400 mg Senna/Docusate Sodium (Senokot S) 2 tab PO BIDPRN PRN PRN Reason: Constipation Sevelamer Carbonate (Renvela) 800 mg PO TID-WM [facility] Last Admin: 07/20/19 07:50 Dose: 800 mg Sodium Chloride (Flush - Normal Saline) 10 ml IVF Q12HR [facility] Last Admin: 07/20/19 07:51 Dose: 10 ml Sodium Chloride (Flush - Normal Saline) 10 ml IVF PRN PRN PRN Reason: Saline Flush Last Admin: 07/16/19 05:57 Dose: 10 ml Sodium Chloride ([place] Nasal [place] 0.65%) 0 ml EA NARE QIDPRN PRN PRN Reason: Nasal Congestion Throat Lozenges (Cepastat Lozenges) 1 deyvi PO Q2H PRN PRN Reason: Sore Throat Tramadol HCl (Ultram) 50 mg PO BIDPRN PRN PRN Reason: Pain Last Admin: 07/20/19 02:43 Dose: 50 mg Zidovudine (Retrovir) 100 mg PO Q8HR [facility] Last Admin: 07/20/19 06:14 Dose: 100 mg Zolpidem Tartrate (Ambien) 5 mg PO HSPRN PRN PRN Reason: Insomnia - Allergies Allergies/Adverse Reactions: Allergies Allergy/AdvReac Type Severity Reaction Status Date / Time clindamycin Allergy Intermediate CAUSED Verified 07/13/19 14:23 HYPERKALEMIA paroxetine HCl [From Paxil] Allergy Intermediate PT STATES Verified 07/13/19 14: 23 IT MADE HIM VERY CRAZY IN HEAD cephalexin Allergy Verified 07/13/19 14:23 ciprofloxacin Allergy Verified 07/13/19 14:23 dalteparin,porcine Allergy Verified 07/13/19 14:23 [From Fragmin] Surgery Consult: Results - Labs Result Diagrams: 07/20/19 03:50 07/20/19 03:50 Lab results: Laboratory Results WBC 4.0 thou/uL (4.8-10.8) L 07/20/19 03:50 RBC 3.26 mill/uL (4.70-6.10) L 07/20/19 03:50 Hgb 11.1 g/dL (14.0-18.0) L 07/20/19 03:50 Hct 34.9 % (42.0-52.0) L 07/20/19 03:50 MCV 107.0 fL (78.0-98.0) H 07/20/19 03:50 MCH 34.0 pg (27.0-31.0) H 07/20/19 03:50 MCHC 31.7 g/dL (32.0-36.0) L 07/20/19 03:50 RDW 15.0 % (11.5-14.5) H 07/20/19 03:50 Plt Count 175 thou/uL (130-400) 07/20/19 03:50 MPV 8.3 fL (7.4-10.4) 07/20/19 03:50 Neutrophils % 61.9 % (42.0-75.0) 07/20/19 03:50 Neutrophils % (Manual) Not Reportable 07/18/19 02:12 Lymphocytes % 28.7 % (21.0-51.0) 07/20/19 03:50 Monocytes % 7.9 % (0.0-10.0) 07/20/19 03:50 Eosinophils % 1.4 % (0.0-10.0) 07/20/19 03:50 Basophils % 0.1 % (0.0-1.0) 07/20/19 03:50 Neutrophils # 2.5 thou/uL (1.40-6.50) 07/20/19 03:50 Lymphocytes # 1.2 thou/uL (1.20-3.40) 07/20/19 03:50 Monocytes # 0.3 thou/uL (0.11-0.59) 07/20/19 03:50 Eosinophils # 0.1 thou/uL (0.0-0.7) 07/20/19 03:50 Basophils # 0.0 thou/uL (0.0-0.2) 07/20/19 03:50 Specimen Type ARTERIAL 07/13/19 17:15 Puncture Site RBA 07/13/19 17:15 Bicarbonate Actual 24.9 mEq/L (22-28) 07/13/19 17:15 ABG pH 7.26 (7.35-7.45) L 07/13/19 17:15 ABG pCO2 57.1 mmHg (35.0-45.0) H 07/13/19 17:15 ABG pO2 63.9 mmHg (> 80.0) 07/13/19 17:15 ABG O2 Sat Calc/Martin 87.1 % (94.0-98.0) L 07/13/19 17:15 ABG O2 Content 14.4 vol% (18.0-21.0) L 07/13/19 17:15 ABG Base Excess -2.9 mEq/L (-2.0 to +3.0) L 07/13/19 17:15 ABG Hematocrit 35.0 % (42.0-52.0) L 07/13/19 17:15 ABG Hemoglobin 12.0 g/dL (14.0-18.0) L 07/13/19 17:15 ABG Oxyhemoglobin 85.2 % (94.0-98.0) L 07/13/19 17:15 ABG Carboxyhemoglobin 1.9 gm% (0.0-3.0) 07/13/19 17:15 ABG Methemoglobin 0.30 gm% (0.04-1.52) 07/13/19 17:15 ABG Deoxyhemoglobin 12.6 % (0.0-2.9) H 07/13/19 17:15 A-a O2 Gradient 121.405 (0-20) H 07/13/19 17:15 Sodium 136 mmol/L (135-148) 07/13/19 17:15 Potassium 5.24 mmol/L (3.70-5.30) 07/13/19 17:15 Chloride 98 mmol/L (98-106) 07/13/19 17:15 Ionized Calcium 1.11 mmol/L (1.12-1.30) L 07/13/19 17:15 Mode of Support 4L/M NC 07/13/19 17:15 Inspired O2 36 % 07/13/19 17:15 Sodium 135 mmol/L (136-145) L 07/20/19 03:50 Potassium 4.7 mmol/L (3.5-5.1) 07/20/19 03:50 Chloride 96 mmol/L (98-107) L 07/20/19 03:50 Carbon Dioxide 30 mmol/L (23-31) 07/20/19 03:50 Anion Gap 14 mmol/L (10-20) 07/20/19 03:50 BUN 39 mg/dL (8.4-25.7) H 07/20/19 03:50 Creatinine 3.50 mg/dL (0.7-1.3) H 07/20/19 03:50 Estimated GFR (MDRD) 22 07/20/19 03:50 Glucose 78 mg/dL (80-115) L 07/20/19 03:50 POC Glucose 93 mg/dL (70-110) 07/15/19 12:14 Lactic Acid 0.7 mmol/L (0.5-2.2) 07/13/19 22:45 Calcium 8.9 mg/dL (7.8-10.44) 07/20/19 03:50 Total Bilirubin 0.6 mg/dL (0.2-1.2) 07/14/19 10:11 AST 14 U/L (5-34) 07/14/19 10:11 ALT 10 U/L (8-55) 07/14/19 10:11 Alkaline Phosphatase 102 U/L (40-110) 07/14/19 10:11 CK-MB (CK-2) 6.0 ng/mL (0-6.6) 07/13/19 08:36 Troponin I 0.446 ng/mL (< 0.028) H* 07/13/19 14:36 B-Natriuretic Peptide 136.1 pg/mL (0-100) H 07/13/19 08:36 Serum Total Protein 6.8 g/dL (5.8-8.1) 07/14/19 10:11 Albumin 3.1 g/dL (3.4-4.8) L 07/14/19 10:11 Globulin 3.7 g/dL (2.4-3.5) H 07/14/19 10:11 Albumin/Globulin Ratio 0.8 g/dL (1.2-2.2) L 07/14/19 10:11 Random Vancomycin 12.1 ug/mL (See Comment) 07/20/19 03:50 Surgery Consult: A/P - Plan Plan: Patient with blood culture positive for MRSA and a needed Mediport which is infectious disease physician is concerned could be colonized. I discussed the pros and cons of removing the Mediport. Pros are removal of an unneeded medical technologist chemistry which could increase his risk of infection, cons are lack of readily accessible IV access in the future and need for additional Mediport placement if he has recurrence of his malignancy. He understands that the Mediport may not be colonized or infected, but that it can be difficult to establish whether this is the case. He has decided to proceed with Mediport removal which was performed at the bedside as described below. He can follow up with me or Dr. Casas on an as-needed basis. Procedure note: After informed consent was obtained, the skin was prepped with ChloraPrep and sterilely draped. Local anesthesia was infused the skin and subcutaneous tissues at the Mediport site. The previous incision was reopened and the Mediport was dissected free of the subcutaneous pocket. The Mediport was removed and the tract was ligated with 3-0 Monocryl suture. The Mediport pocket was swabbed for Gram stain and culture. The pocket was imbricated with 3- 0 Monocryl suture and the subcutaneous tissues reapproximated with 3-0 Monocryl suture. The skin was closed with 4-0 subcuticular Monocryl suture and a sterile dressing was placed. The patient tolerated the procedure well. Estimated blood loss minimal. There were no complications. Specimen is swab of Mediport pocket for Gram stain and culture. The Mediport was examined and was intact and was discarded.
[2019-07-20] MEDS: Atorvastatin Calcium 10 MG TAB PO SCH (21:46)
[2019-07-20] MEDS: Senokot S 8.6-50 MG TAB PO PRN (21:51)
[2019-07-21] MEDS: Ipratropium Bromide 2.5 ml Neb NEB SCH ×4 (00:59→19:44)
[2019-07-21] MEDS: Famotidine/PF 20 mg/2ml Vial SLOW IVP SCH (09:00)
--- NOTE | 2019-07-21 09:45 | PDOC.HOSPP ---
- Subjective Encounter Date: 07/21/19 Encounter Time: 07:00 Subjective: Patient seen and examined. No new complaints. No overnight events - Objective Vital Signs & Weight: Vital Signs (12 hours) Temp Pulse Resp BP Pulse Ox 07/21/19 08:16 97.9 F 74 18 187/92 H 96 07/21/19 07:04 66 20 95 07/21/19 00:59 76 18 95 07/20/19 22:03 80 160/94 H Weight Admit Weight 158 lb 11.725 oz Weight 154 lb 12.232 oz Most Recent Monitor Data Heart Rate from ECG 106 NIBP 92/57 NIBP BP-Mean 68 Respiration from ECG 17 SpO2 88 Result Diagrams: 07/20/19 03:50 07/20/19 03:50 Hospitalist ROS - Review of Systems Constitutional: denies: fever, chills, sweats, weakness, malaise, other Eyes: denies: pain, vision change, conjunctivae inflammation, eyelid inflammation, redness, other ENT: denies: ear pain, ear discharge, nose pain, nose discharge, nose congestion , mouth pain, mouth swelling, throat pain, throat swelling, other Respiratory: denies: cough, dry, shortness of breath, hemoptysis, SOB with excertion, pleuritic pain, sputum, wheezing, other Cardiovascular: denies: chest pain, palpitations, orthopnea, paroxysmal noc. dyspnea, edema, light headedness, other Gastrointestinal: reports: constipation. denies: nausea, vomiting, abdominal pain, diarrhea, melena, hematochezia, other Genitourinary: denies: dysuria, frequency, incontinence, hematuria, retention, other Musculoskeletal: denies: neck pain, shoulder pain, arm pain, back pain, hand pain, leg pain, foot pain, other - Medication Medications: Active Medications Generic Name Dose Route Start Last Admin Trade Name Freq PRN Reason Stop Dose Admin Acetaminophen/Codeine Phosphate 1 tab 07/14/19 11:00 07/20/19 21:50 Tylenol #3 PO 1 tab Q6H PRN Administration Pain Aspirin 325 mg 07/15/19 09:00 07/20/19 07:50 Aspirin PO 325 mg DAILY [facility] Administration Atorvastatin Calcium 10 mg 07/14/19 21:00 07/20/19 21:46 Lipitor PO 10 mg HS [facility] Administration Clonidine 0.1 mg 07/20/19 06:24 07/20/19 06:30 Catapres PO 0.1 mg Q4H PRN Administration SBP > 160 use second Etravirine 200 mg 07/14/19 18:00 07/20/19 21:50 Intelence PO 200 mg BID-PC [facility] Administration Fludrocortisone Acetate 0.1 mg 07/19/19 09:00 07/20/19 08:45 Florinef PO 0.1 mg DAILY [facility] Administration Folic Acid 1 mg 07/15/19 09:00 07/20/19 07:51 Folvite PO 1 mg DAILY [facility] Administration Hydralazine HCl 10 mg 07/18/19 11:32 07/20/19 05:07 Apresoline SLOW IVP 10 mg Q4H PRN Administration SBP > 180 and HR < 70 Vancomycin HCl 1 gm/ Device 200 mls @ 200 mls/hr 07/13/19 13:00 07/16/19 12: 19 IVPB 200 mls WILLCALL [facility] Administration Vancomycin HCl 750 mg/ Sodium 250 mls @ 250 mls/hr 07/13/19 13:00 07/20/19 10 :52 Chloride IVPB 250 mls WILLCALL [facility] Administration Ipratropium [place] 2.5 ml 07/14/19 13:00 07/21/19 07:04 Atrovent NEB 2.5 ml [id number] [facility] Administration Lorazepam 1 mg 07/16/19 17:41 07/18/19 13:44 Ativan SLOW IVP 1 mg Q4H PRN Administration Anxiety/Agitation Pantoprazole Sodium 40 mg 07/15/19 09:00 07/20/19 07:51 Protonix PO 40 mg DAILY [facility] Administration Raltegravir 400 mg 07/14/19 21:00 07/20/19 21:46 Isentress PO 400 mg BID [facility] Administration Senna/Docusate Sodium 2 tab 07/18/19 11:32 07/20/19 21:51 Senokot S PO 2 tab BIDPRN PRN Administration Constipation Sevelamer Carbonate 800 mg 07/14/19 12:00 07/20/19 16:08 Renvela PO 800 mg TID-WM [facility] Administration Sodium Chloride 10 ml 07/15/19 21:00 07/20/19 21:59 Flush - Normal Saline IVF 10 ml Q12HR [facility] Administration Sodium Chloride 10 ml 07/15/19 10:37 07/16/19 05:57 Flush - Normal Saline IVF 10 ml PRN PRN Administration Saline Flush Tramadol HCl 50 mg 07/19/19 09:13 07/20/19 13:19 Ultram PO 50 mg BIDPRN PRN Administration Pain Zidovudine 100 mg 07/14/19 14:00 07/21/19 06:04 Retrovir PO 100 mg Q8HR [facility] Administration Zolpidem Tartrate 5 mg 07/18/19 11:32 07/20/19 21:52 Ambien PO 5 mg HSPRN PRN Administration Insomnia - Exam General Appearance: NAD, awake alert Eye: PERRL, anicteric sclera ENT: normocephalic atraumatic, no oropharyngeal lesions Neck: supple, symmetric, no JVD Heart: RRR, no murmur, no gallops Respiratory: CTAB, no wheezes, no rales Gastrointestinal: soft, non-tender, non-distended Extremities - other findings: left aka Skin: normal turgor, no lesions Neurological: no focal deficits Musculoskeletal: normal tone, normal strength Psychiatric: normal affect, normal behavior Hosp A/P (1) Acute on chronic respiratory failure with hypoxemia Code(s): J96.21 - ACUTE AND CHRONIC RESPIRATORY FAILURE WITH HYPOXIA Status: Acute (2) Acute metabolic encephalopathy Code(s): G93.41 - METABOLIC ENCEPHALOPATHY Status: Resolved (3) PNA (pneumonia) Code(s): J18.9 - PNEUMONIA, UNSPECIFIED ORGANISM Status: Acute Qualifiers: Pneumonia type: due to methicillin-resistant Staphylococcus aureus (MRSA) Laterality: bilateral Lung location: unspecified part of lung Qualified Code (s): J15.212 - Pneumonia due to Methicillin resistant Staphylococcus aureus (4) Physical deconditioning Code(s): R53.81 - OTHER MALAISE Status: Chronic (5) ESRD (end stage renal disease) on dialysis Code(s): N18.6 - END STAGE RENAL DISEASE; Z99.2 - DEPENDENCE ON RENAL DIALYSIS Status: Chronic (6) HIV (human immunodeficiency virus infection) Code(s): B20 - HUMAN IMMUNODEFICIENCY VIRUS [HIV] DISEASE Status: Chronic Qualifiers: HIV symptom status: unspecified Qualified Code(s): B20 - Human immunodeficiency virus [HIV] disease (7) Hepatitis C Code(s): B19.20 - UNSPECIFIED VIRAL HEPATITIS C WITHOUT HEPATIC COMA Status: Chronic Qualifiers: Viral hepatitis chronicity: chronic Hepatic coma status: without hepatic coma Qualified Code(s): B18.2 - Chronic viral hepatitis C (8) Anemia in chronic kidney disease Code(s): N18.9 - CHRONIC KIDNEY DISEASE, UNSPECIFIED; D63.1 - ANEMIA IN CHRONIC KIDNEY DISEASE Status: Chronic Qualifiers: Chronic kidney disease stage: on chronic dialysis Qualified Code(s): N18.6 - End stage renal disease; D63.1 - Anemia in chronic kidney disease; Z99.2 - Dependence on renal dialysis (9) Constipation Code(s): K59.00 - CONSTIPATION, UNSPECIFIED Status: Acute (10) Moderate protein malnutrition Code(s): E44.0 - MODERATE PROTEIN-CALORIE MALNUTRITION Status: Chronic (11) DM (diabetes mellitus) Code(s): E11.9 - TYPE 2 DIABETES MELLITUS WITHOUT COMPLICATIONS Status: Chronic Qualifiers: Diabetes mellitus type: type 2 Diabetes mellitus custodial insulin use: without rn long term care use Diabetes mellitus complication status: with kidney complications Diabetes mellitus complication detail: with chronic kidney disease Chronic kidney disease stage: on chronic dialysis Qualified Code(s) : E11.22 - Type 2 diabetes mellitus with diabetic chronic kidney disease; N18.6 - End stage renal disease; Z99.2 - Dependence on renal dialysis (12) HTN (hypertension) Code(s): I10 - ESSENTIAL (PRIMARY) HYPERTENSION Status: Chronic Qualifiers: Hypertension type: essential hypertension (13) Esophageal cancer Status: Chronic Qualifiers: Malignant neoplasm of esophagus location: unspecified location Qualified Code(s): C15.9 - Malignant neoplasm of esophagus, unspecified - Plan old records reviewed/req, continue antibiotics 07/18 code status changed to full code discussed with bottle caser about discharge planning high risk for readmission as hospice revoked limited option for DC home with family or SNU option continue vancomycin with HD HD as per nephrology medication reviewed prognosis is poor 07/19 pt reported that he wanted to go home but doubt he has family support to provide his need and level of care will consult ID today for duration of antibiotic with HD and any more investigation required medication reviewed and continue to provide supportive care discharge planning 07/20 continue HD as per nephrology add toradol for pain continue vancomycin medication reviewed and continue to provide supportive care await placement 07/21 mediport removed add miralax change pepcid po change hydralazin PO prn await snu placement
[2019-07-21] MEDS: hydrALAZINE 10 MG TAB PO PRN (09:57)
[2019-07-21] MEDS: Fludrocortisone Acetate 0.1 MG TAB PO SCH (09:58)
[2019-07-21] MEDS: Aspirin 325 MG TAB PO SCH (09:58)
[2019-07-21] MEDS: Folic Acid 1 MG TAB PO SCH (09:58)
[2019-07-21] MEDS: Sevelamer Carbonate 800 MG TAB PO SCH ×3 (09:58→18:13)
[2019-07-21] MEDS: Raltegravir Potassium 400 MG TAB PO SCH ×2 (09:58→22:03)
[2019-07-21] MEDS: Atorvastatin Calcium 10 MG TAB PO SCH (22:03)
[2019-07-21] MEDS: Senokot S 8.6-50 MG TAB PO PRN (22:07)
[2019-07-21] MEDS: cloNIDine 0.1 MG TAB PO PRN (22:08)
[2019-07-21] MEDS: Acetaminophen/Codeine 30-300mg Tablet PO PRN (23:48)
[2019-07-22] MEDS: Ipratropium Bromide 2.5 ml Neb NEB SCH ×4 (01:12→19:23)
[2019-07-22] MEDS: cloNIDine 0.1 MG TAB PO PRN (05:37)
[2019-07-22] MEDS: hydrALAZINE 10 MG TAB PO PRN (08:23)
[2019-07-22] MEDS: Aspirin 325 MG TAB PO SCH (08:24)
[2019-07-22] MEDS: Folic Acid 1 MG TAB PO SCH (08:24)
[2019-07-22] MEDS: Sevelamer Carbonate 800 MG TAB PO SCH ×3 (08:24→17:52)
[2019-07-22] MEDS: Famotidine 20 MG TAB PO SCH (08:24)
[2019-07-22] MEDS: Fludrocortisone Acetate 0.1 MG TAB PO SCH (08:25)
[2019-07-22] MEDS: Raltegravir Potassium 400 MG TAB PO SCH ×2 (08:26→20:59)
[2019-07-22] MEDS: Polyethylene Glycol 3350 17 GM Packet PO SCH (08:26)
--- NOTE | 2019-07-22 10:22 | PDOC.HOSPP ---
- Subjective Encounter Date: 07/22/19 Encounter Time: 07:00 Subjective: Patient seen and examined. No new complaints. No overnight events - Objective Vital Signs & Weight: Vital Signs (12 hours) Temp Pulse Resp BP BP Pulse Ox 07/22/19 08:54 148/77 H 07/22/19 08:23 62 161/87 H 07/22/19 08:21 16 161/87 H 07/22/19 07:43 98.6 F 65 16 164/81 H 98 07/22/19 06:25 63 165/81 H 07/22/19 06:05 60 16 07/22/19 05:36 98.2 F 65 18 172/85 H 95 07/22/19 01:12 76 14 94 L Weight Admit Weight 158 lb 11.725 oz Weight 154 lb 12.232 oz Most Recent Monitor Data Heart Rate from ECG 106 NIBP 92/57 NIBP BP-Mean 68 Respiration from ECG 17 SpO2 88 I&O: 07/21/19 07/22/19 07/23/19 06:59 06:59 06:59 Intake Total 500 Balance 500 Result Diagrams: 07/20/19 03:50 07/20/19 03:50 Hospitalist ROS - Review of Systems Constitutional: denies: fever, chills, sweats, weakness, malaise, other ENT: denies: ear pain, ear discharge, nose pain, nose discharge, nose congestion , mouth pain, mouth swelling, throat pain, throat swelling, other Respiratory: denies: cough, dry, shortness of breath, hemoptysis, SOB with excertion, pleuritic pain, sputum, wheezing, other Cardiovascular: denies: chest pain, palpitations, orthopnea, paroxysmal noc. dyspnea, edema, light headedness, other Gastrointestinal: denies: nausea, vomiting, abdominal pain, diarrhea, constipation, melena, hematochezia, other - Medication Medications: Active Medications Generic Name Dose Route Start Last Admin Trade Name Freq PRN Reason Stop Dose Admin Acetaminophen/Codeine Phosphate 1 tab 07/14/19 11:00 07/21/19 23:48 Tylenol #3 PO 1 tab Q6H PRN Administration Pain Aspirin 325 mg 07/15/19 09:00 07/22/19 08:24 Aspirin PO 325 mg DAILY ESME Administration Atorvastatin Calcium 10 mg 07/14/19 21:00 07/21/19 22:03 Lipitor PO 10 mg HS ESME Administration Clonidine 0.1 mg 07/20/19 06:24 07/22/19 05:37 Catapres PO 0.1 mg Q4H PRN Administration SBP > 160 use second Etravirine 200 mg 07/14/19 18:00 07/22/19 08:25 Intelence PO 200 mg BID-PC ESME Administration Famotidine 20 mg 07/22/19 09:00 07/22/19 08:24 Pepcid PO 20 mg DAILY ESME Administration Fludrocortisone Acetate 0.1 mg 07/19/19 09:00 07/22/19 08:25 Florinef PO 0.1 mg DAILY ESME Administration Folic Acid 1 mg 07/15/19 09:00 07/22/19 08:24 Folvite PO 1 mg DAILY ESME Administration Hydralazine HCl 10 mg 07/18/19 11:32 07/20/19 05:07 Apresoline SLOW IVP 10 mg Q4H PRN Administration SBP > 180 and HR < 70 Hydralazine HCl 10 mg 07/21/19 09:08 07/22/19 08:23 Apresoline PO 10 mg Q4H PRN Administration SBP GREATER THAN 160 Vancomycin HCl 1 gm/ Device 200 mls @ 200 mls/hr 07/13/19 13:00 07/16/19 12: 19 IVPB 200 mls WILLCALL ESME Administration Vancomycin HCl 750 mg/ Sodium 250 mls @ 250 mls/hr 07/13/19 13:00 07/20/19 10 :52 Chloride IVPB 250 mls WILLCALL ESME Administration Ipratropium [place] 2.5 ml 07/14/19 13:00 07/22/19 06:05 Atrovent NEB 2.5 ml T1PR-PM ESME Administration Lorazepam 1 mg 07/16/19 17:41 07/18/19 13:44 Ativan SLOW IVP 1 mg Q4H PRN Administration Anxiety/Agitation Pantoprazole Sodium 40 mg 07/15/19 09:00 07/22/19 08:24 Protonix PO 40 mg DAILY ESME Administration Polyethylene Glycol 17 gm 07/22/19 09:00 07/22/19 08:26 Miralax PO 17 gm DAILY ESME Administration Raltegravir 400 mg 07/14/19 21:00 07/22/19 08:26 Isentress PO 400 mg BID ESME Administration Senna/Docusate Sodium 2 tab 07/18/19 11:32 07/21/19 22:07 Senokot S PO 2 tab BIDPRN PRN Administration Constipation Sevelamer Carbonate 800 mg 07/14/19 12:00 07/22/19 08:24 Renvela PO 800 mg TID-WM ESME Administration Sodium Chloride 10 ml 07/15/19 21:00 07/22/19 08:26 Flush - Normal Saline IVF Not Given Q12HR ESME Sodium Chloride 10 ml 07/15/19 10:37 07/16/19 05:57 Flush - Normal Saline IVF 10 ml PRN PRN Administration Saline Flush Tramadol HCl 50 mg 07/19/19 09:13 07/20/19 13:19 Ultram PO 50 mg BIDPRN PRN Administration Pain Zidovudine 100 mg 07/14/19 14:00 07/22/19 05:37 Retrovir PO 100 mg Q8HR ESME Administration Zolpidem Tartrate 5 mg 07/18/19 11:32 07/20/19 21:52 Ambien PO 5 mg HSPRN PRN Administration Insomnia - Exam General Appearance: NAD, awake alert Eye: PERRL, anicteric sclera ENT: normocephalic atraumatic, no oropharyngeal lesions Neck: supple, symmetric, no JVD Heart: RRR, no murmur, no gallops, no rubs Respiratory: CTAB, no wheezes, no rales, no ronchi Gastrointestinal: soft, non-tender, non-distended, normal bowel sounds Extremities - other findings: left aka Skin: normal turgor Neurological: no focal deficits Musculoskeletal: normal tone, normal strength Psychiatric: normal affect, normal behavior Hosp A/P (1) Acute on chronic respiratory failure with hypoxemia Code(s): J96.21 - ACUTE AND CHRONIC RESPIRATORY FAILURE WITH HYPOXIA Status: Acute (2) Acute metabolic encephalopathy Code(s): G93.41 - METABOLIC ENCEPHALOPATHY Status: Resolved (3) PNA (pneumonia) Code(s): J18.9 - PNEUMONIA, UNSPECIFIED ORGANISM Status: Acute Qualifiers: Pneumonia type: due to methicillin-resistant Staphylococcus aureus (MRSA) Laterality: bilateral Lung location: unspecified part of lung Qualified Code (s): J15.212 - Pneumonia due to Methicillin resistant Staphylococcus aureus (4) Physical deconditioning Code(s): R53.81 - OTHER MALAISE Status: Chronic (5) ESRD (end stage renal disease) on dialysis Code(s): N18.6 - END STAGE RENAL DISEASE; Z99.2 - DEPENDENCE ON RENAL DIALYSIS Status: Chronic (6) HIV (human immunodeficiency virus infection) Code(s): B20 - HUMAN IMMUNODEFICIENCY VIRUS [HIV] DISEASE Status: Chronic Qualifiers: HIV symptom status: unspecified Qualified Code(s): B20 - Human immunodeficiency virus [HIV] disease (7) Hepatitis C Code(s): B19.20 - UNSPECIFIED VIRAL HEPATITIS C WITHOUT HEPATIC COMA Status: Chronic Qualifiers: Viral hepatitis chronicity: chronic Hepatic coma status: without hepatic coma Qualified Code(s): B18.2 - Chronic viral hepatitis C (8) Anemia in chronic kidney disease Code(s): N18.9 - CHRONIC KIDNEY DISEASE, UNSPECIFIED; D63.1 - ANEMIA IN CHRONIC KIDNEY DISEASE Status: Chronic Qualifiers: Chronic kidney disease stage: on chronic dialysis Qualified Code(s): N18.6 - End stage renal disease; D63.1 - Anemia in chronic kidney disease; Z99.2 - Dependence on renal dialysis (9) Constipation Code(s): K59.00 - CONSTIPATION, UNSPECIFIED Status: Acute (10) Moderate protein malnutrition Code(s): E44.0 - MODERATE PROTEIN-CALORIE MALNUTRITION Status: Chronic (11) DM (diabetes mellitus) Code(s): E11.9 - TYPE 2 DIABETES MELLITUS WITHOUT COMPLICATIONS Status: Chronic Qualifiers: Diabetes mellitus type: type 2 Diabetes mellitus skilled nursing insulin use: without intermediate card tender use Diabetes mellitus complication status: with kidney complications Diabetes mellitus complication detail: with chronic kidney disease Chronic kidney disease stage: on chronic dialysis Qualified Code(s) : E11.22 - Type 2 diabetes mellitus with diabetic chronic kidney disease; N18.6 - End stage renal disease; Z99.2 - Dependence on renal dialysis (12) HTN (hypertension) Code(s): I10 - ESSENTIAL (PRIMARY) HYPERTENSION Status: Chronic Qualifiers: Hypertension type: essential hypertension (13) Esophageal cancer Status: Chronic Qualifiers: Malignant neoplasm of esophagus location: unspecified location Qualified Code(s): C15.9 - Malignant neoplasm of esophagus, unspecified - Plan old records reviewed/req, continue antibiotics, PT/OT, social sciences instructor 07/18 code status changed to full code discussed with case picker about discharge planning high risk for readmission as hospice revoked limited option for DC home with family or SNU option continue vancomycin with HD HD as per nephrology medication reviewed prognosis is poor 07/19 pt reported that he wanted to go home but doubt he has family support to provide his need and level of care will consult ID today for duration of antibiotic with HD and any more investigation required medication reviewed and continue to provide supportive care discharge planning 07/20 continue HD as per nephrology add toradol for pain continue vancomycin medication reviewed and continue to provide supportive care await placement 07/21 mediport removed add miralax change pepcid po change hydralazin PO prn await snu placement 07/22 await placement stable otherwise wound care
[2019-07-22] MEDS: Acetaminophen/Codeine 30-300mg Tablet PO PRN ×2 (12:45→21:00)
--- NOTE | 2019-07-22 17:10 | PRG ---
DATE OF SERVICE: 07/22/2019 SUBJECTIVE: Still having pain which is quite intense in the lumbosacral spine area. A little bit of pain in the left shoulder and left sternoclavicular joint. No dyspnea. No abdominal pain. No diarrhea. OBJECTIVE: VITAL SIGNS: He has been afebrile. Blood pressure 140/77, pulse 68 , respirations 16. GENERAL: Chronically ill-appearing, awake, alert, oriented, in no distress. MUSCULOSKELETAL: Left sternoclavicular joint a little bit swollen, [id number] tender. LUNGS: Symmetric clear breath sounds. HEART: S1 and S2 regular rate with soft aortic murmur. ABDOMEN: Soft, not distended or tender. LABORATORY DATA: White cell count 4.0, hemoglobin 11, platelets 175, normal differential. ASSESSMENT AND DISCUSSION: Longstanding well-controlled HIV infection, type 2 diabetes with end-stage renal disease. Hemodialysis with an AV fistula left upper extremity with presumed remission, although this is not well documented. MRSA bacteremia 1 out of 2 sets. Port has been removed. Severe pain in the lumbosacral spine area. We will go ahead and image his lumbosacral spine. After that, he can continue treatment for a protracted period of time with vancomycin given at dialysis. Job ID: [id number] [facility]
[2019-07-22] MEDS: Atorvastatin Calcium 10 MG TAB PO SCH (21:00)
[2019-07-22] MEDS: diphenhydrAMINE 25 MG CAP PO PRN (22:05)
[2019-07-22] MEDS: Gabapentin 100 MG CAP PO PRN (22:06)
[2019-07-23] MEDS: hydrALAZINE 10 MG TAB PO PRN (00:26)
[2019-07-23] MEDS ORDERED: Ipratropium Bromide 2.5 ml Neb ONE (01:16)
[2019-07-23] MEDS: Ipratropium Bromide 2.5 ml Neb NEB SCH ×4 (01:17→18:09)
[2019-07-23] MEDS: Aspirin 325 MG TAB PO SCH (07:45)
[2019-07-23] MEDS: Famotidine 20 MG TAB PO SCH (07:45)
[2019-07-23] MEDS: Sevelamer Carbonate 800 MG TAB PO SCH ×3 (07:45→17:00)
[2019-07-23] MEDS: Folic Acid 1 MG TAB PO SCH (07:46)
[2019-07-23] MEDS: Fludrocortisone Acetate 0.1 MG TAB PO SCH (07:46)
[2019-07-23] MEDS: Raltegravir Potassium 400 MG TAB PO SCH ×2 (07:47→21:36)
[2019-07-23] MEDS: Polyethylene Glycol 3350 17 GM Packet PO SCH (07:47)
[2019-07-23 08:21] LABS: Vancomycin, Random 12.2 ug/mL (See Comment)
--- NOTE | 2019-07-23 08:26 | PRG ---
DATE OF SERVICE: 07/22/2019 SUBJECTIVE: The patient is seen and examined, noted with the following vital signs. OBJECTIVE: VITAL SIGNS: Afebrile, temperature 98.6, pulse 62, blood pressure 161/87, respiratory rate of 16. HEENT: Unremarkable. CARDIOVASCULAR SYSTEM: First and second heart sounds were heard. RESPIRATORY SYSTEM: Clear to auscultation. DIGESTIVE SYSTEM: Revealed a benign abdomen with positive bowel sounds. EXTREMITIES: No peripheral edema. SKIN: No new gross rash. LYMPHATICS: No peripheral lymphadenopathy. IMPRESSION: 1. End-stage renal disease, on hemodialysis Monday, , and Monday. 2. Failure to thrive in the context of recent infection. 3. fracture. PLAN: 1. The patient to be dialyzed tomorrow in accordance with the schedule. 2. Further management to be dependent on the clinical course and is very eager to be discharged. Currently undergoing physical therapy. Job ID: [id number]
--- NOTE | 2019-07-23 10:09 | PDOC.HOSPP ---
- Subjective Encounter Date: 07/23/19 Encounter Time: 07:00 Subjective: pt seen in hd room, he has back pain, today he has MRI spine, waiting for placement - Objective Vital Signs & Weight: Vital Signs (12 hours) Temp Pulse Resp BP BP Pulse Ox 07/23/19 08:10 180/98 H 07/23/19 07:42 98.5 F 80 18 174/101 H 96 07/23/19 06:41 90 16 07/23/19 01:18 94 L 07/23/19 01:17 77 16 94 L 07/23/19 00:41 172/94 H 07/23/19 00:26 74 172/94 H Weight Admit Weight 158 lb 11.725 oz Weight 154 lb 12.232 oz Most Recent Monitor Data Heart Rate from ECG 106 NIBP 92/57 NIBP BP-Mean 68 Respiration from ECG 17 SpO2 88 I&O: 07/22/19 07/23/19 07/24/19 06:59 06:59 06:59 Intake Total 1370 Balance 1370 Result Diagrams: 07/20/19 03:50 07/20/19 03:50 Hospitalist ROS - Review of Systems ENT: denies: ear pain, ear discharge, nose pain, nose discharge, nose congestion , mouth pain, mouth swelling, throat pain, throat swelling, other Respiratory: denies: cough, dry, shortness of breath, hemoptysis, SOB with excertion, pleuritic pain, sputum, wheezing, other Cardiovascular: denies: chest pain, palpitations, orthopnea, paroxysmal noc. dyspnea, edema, light headedness, other Gastrointestinal: denies: nausea, vomiting, abdominal pain, diarrhea, constipation, melena, hematochezia, other Genitourinary: denies: dysuria, frequency, incontinence, hematuria, retention, other Musculoskeletal: reports: back pain. denies: neck pain, shoulder pain, arm pain , hand pain, leg pain, foot pain, other - Medication Medications: Active Medications Generic Name Dose Route Start Last Admin Trade Name Freq PRN Reason Stop Dose Admin Acetaminophen/Codeine Phosphate 1 tab 07/14/19 11:00 07/22/19 21:00 Tylenol #3 PO 1 tab Q6H PRN Administration Pain Aspirin 325 mg 07/15/19 09:00 07/23/19 07:45 Aspirin PO 325 mg DAILY ESME Administration Atorvastatin Calcium 10 mg 07/14/19 21:00 07/22/19 21:00 Lipitor PO 10 mg HS ESME Administration Clonidine 0.1 mg 07/20/19 06:24 07/22/19 05:37 Catapres PO 0.1 mg Q4H PRN Administration SBP > 160 use second Diphenhydramine HCl 25 mg 07/22/19 21:45 07/22/19 22:05 Benadryl PO 25 mg Q6H PRN Administration Itching & Insomnia Etravirine 200 mg 07/14/19 18:00 07/23/19 07:45 Intelence PO 200 mg BID-PC ESME Administration Famotidine 20 mg 07/22/19 09:00 07/23/19 07:45 Pepcid PO 20 mg DAILY ESME Administration Fludrocortisone Acetate 0.1 mg 07/19/19 09:00 07/23/19 07:46 Florinef PO 0.1 mg DAILY ESME Administration Folic Acid 1 mg 07/15/19 09:00 07/23/19 07:46 Folvite PO 1 mg DAILY ESME Administration Gabapentin 100 mg 07/22/19 21:43 07/22/19 22:06 Neurontin PO 100 mg HS PRN Administration Pain Hydralazine HCl 10 mg 07/18/19 11:32 07/20/19 05:07 Apresoline SLOW IVP 10 mg Q4H PRN Administration SBP > 180 and HR < 70 Hydralazine HCl 10 mg 07/21/19 09:08 07/23/19 00:26 Apresoline PO 10 mg Q4H PRN Administration SBP GREATER THAN 160 Vancomycin HCl 1 gm/ Device 200 mls @ 200 mls/hr 07/13/19 13:00 07/16/19 12: 19 IVPB 200 mls WILLCALL ESME Administration Vancomycin HCl 750 mg/ Sodium 250 mls @ 250 mls/hr 07/13/19 13:00 07/20/19 10 :52 Chloride IVPB 250 mls WILLCALL ESME Administration Ipratropium [place] 2.5 ml 07/14/19 13:00 07/23/19 06:41 Atrovent NEB 2.5 ml [id number] ESME Administration Lorazepam 1 mg 07/16/19 17:41 07/18/19 13:44 Ativan SLOW IVP 1 mg Q4H PRN Administration Anxiety/Agitation Pantoprazole Sodium 40 mg 07/15/19 09:00 07/23/19 07:47 Protonix PO 40 mg DAILY ESME Administration Polyethylene Glycol 17 gm 07/22/19 09:00 07/23/19 07:47 Miralax PO 17 gm DAILY ESME Administration Raltegravir 400 mg 07/14/19 21:00 07/23/19 07:47 Isentress PO 400 mg BID ESME Administration Senna/Docusate Sodium 2 tab 07/18/19 11:32 07/21/19 22:07 Senokot S PO 2 tab BIDPRN PRN Administration Constipation Sevelamer Carbonate 800 mg 07/14/19 12:00 07/23/19 07:45 Renvela PO 800 mg TID-WM ESME Administration Sodium Chloride 10 ml 07/15/19 21:00 07/23/19 07:48 Flush - Normal Saline IVF Not Given Q12HR ESME Sodium Chloride 10 ml 07/15/19 10:37 07/16/19 05:57 Flush - Normal Saline IVF 10 ml PRN PRN Administration Saline Flush Tramadol HCl 50 mg 07/19/19 09:13 07/20/19 13:19 Ultram PO 50 mg BIDPRN PRN Administration Pain Zidovudine 100 mg 07/14/19 14:00 07/23/19 05:50 Retrovir PO 100 mg Q8HR ESME Administration Zolpidem Tartrate 5 mg 07/18/19 11:32 07/20/19 21:52 Ambien PO 5 mg HSPRN PRN Administration Insomnia - Exam General Appearance: NAD, awake alert Eye: PERRL, anicteric sclera ENT: normocephalic atraumatic, no oropharyngeal lesions Neck: supple, symmetric, no JVD Heart: RRR, no murmur, no gallops, no rubs Respiratory: CTAB, no wheezes, no rales Gastrointestinal: soft, non-tender, non-distended Extremities - other findings: left aka Skin: normal turgor, no lesions Neurological: no focal deficits Musculoskeletal: normal tone, normal strength Psychiatric: normal affect, normal behavior Hosp A/P (1) Acute on chronic respiratory failure with hypoxemia Code(s): J96.21 - ACUTE AND CHRONIC RESPIRATORY FAILURE WITH HYPOXIA Status: Acute (2) Acute metabolic encephalopathy Code(s): G93.41 - METABOLIC ENCEPHALOPATHY Status: Resolved (3) PNA (pneumonia) Code(s): J18.9 - PNEUMONIA, UNSPECIFIED ORGANISM Status: Acute Qualifiers: Pneumonia type: due to methicillin-resistant Staphylococcus aureus (MRSA) Laterality: bilateral Lung location: unspecified part of lung Qualified Code (s): J15.212 - Pneumonia due to Methicillin resistant Staphylococcus aureus (4) Physical deconditioning Code(s): R53.81 - OTHER MALAISE Status: Chronic (5) ESRD (end stage renal disease) on dialysis Code(s): N18.6 - END STAGE RENAL DISEASE; Z99.2 - DEPENDENCE ON RENAL DIALYSIS Status: Chronic (6) HIV (human immunodeficiency virus infection) Code(s): B20 - HUMAN IMMUNODEFICIENCY VIRUS [HIV] DISEASE Status: Chronic Qualifiers: HIV symptom status: unspecified Qualified Code(s): B20 - Human immunodeficiency virus [HIV] disease (7) Hepatitis C Code(s): B19.20 - UNSPECIFIED VIRAL HEPATITIS C WITHOUT HEPATIC COMA Status: Chronic Qualifiers: Viral hepatitis chronicity: chronic Hepatic coma status: without hepatic coma Qualified Code(s): B18.2 - Chronic viral hepatitis C (8) Anemia in chronic kidney disease Code(s): N18.9 - CHRONIC KIDNEY DISEASE, UNSPECIFIED; D63.1 - ANEMIA IN CHRONIC KIDNEY DISEASE Status: Chronic Qualifiers: Chronic kidney disease stage: on chronic dialysis Qualified Code(s): N18.6 - End stage renal disease; D63.1 - Anemia in chronic kidney disease; Z99.2 - Dependence on renal dialysis (9) Constipation Code(s): K59.00 - CONSTIPATION, UNSPECIFIED Status: Acute (10) Moderate protein malnutrition Code(s): E44.0 - MODERATE PROTEIN-CALORIE MALNUTRITION Status: Chronic (11) DM (diabetes mellitus) Code(s): E11.9 - TYPE 2 DIABETES MELLITUS WITHOUT COMPLICATIONS Status: Chronic Qualifiers: Diabetes mellitus type: type 2 Diabetes mellitus intermediate teacher insulin use: without detention use Diabetes mellitus complication status: with kidney complications Diabetes mellitus complication detail: with chronic kidney disease Chronic kidney disease stage: on chronic dialysis Qualified Code(s) : E11.22 - Type 2 diabetes mellitus with diabetic chronic kidney disease; N18.6 - End stage renal disease; Z99.2 - Dependence on renal dialysis (12) HTN (hypertension) Code(s): I10 - ESSENTIAL (PRIMARY) HYPERTENSION Status: Chronic Qualifiers: Hypertension type: essential hypertension (13) Esophageal cancer Status: Chronic Qualifiers: Malignant neoplasm of esophagus location: unspecified location Qualified Code(s): C15.9 - Malignant neoplasm of esophagus, unspecified - Plan old records reviewed/req, continue antibiotics, PT/OT, 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 07/18 code status changed to full code discussed with watch case polisher about discharge planning high risk for readmission as hospice revoked limited option for DC home with family or SNU option continue vancomycin with HD HD as per nephrology medication reviewed prognosis is poor 07/19 pt reported that he wanted to go home but doubt he has family support to provide his need and level of care will consult ID today for duration of antibiotic with HD and any more investigation required medication reviewed and continue to provide supportive care discharge planning 07/20 continue HD as per nephrology add toradol for pain continue vancomycin medication reviewed and continue to provide supportive care await placement 07/21 mediport removed add miralax change pepcid po change hydralazin PO prn await snu placement 07/22 await placement stable otherwise wound care 07/23/19 MRI ordered by ID for his back pain, any way he will need detention antibiotic with HD await placement medication reviewed as above and continue to provide supportive care
[2019-07-23] MEDS: Vancomycin HCl 750 MG in Sodium Chloride 0.9% 250 ML 250 ML IVPB SCH (11:18)
[2019-07-23] MEDS: Acetaminophen/Codeine 30-300mg Tablet PO PRN (14:02)
--- NOTE | 2019-07-23 18:03 | PRG ---
DATE OF SERVICE: 07/23/2019 SUBJECTIVE: The patient was seen and examined, with no new complaint. Noted with the following vital signs. OBJECTIVE: VITAL SIGNS: Temperature 98.5, pulse 80, respiratory rate of 18, O2 saturations are 96%, and blood pressure 174/101. HEENT: Unremarkable. CARDIOVASCULAR SYSTEM: First and second heart sounds were heard. RESPIRATORY SYSTEM: Clear to auscultation. DIGESTIVE SYSTEM: Revealed a benign abdomen with positive bowel sounds. EXTREMITIES: No peripheral edema. SKIN: No new gross rash. LYMPHATICS: No peripheral lymphadenopathy. IMPRESSION: 1. End-stage renal disease, on a Monday, , and Monday dialysis. 2. Human immunodeficiency virus infection on treatment. 3. Hypertension. PLAN: 1. The patient to continue with current dialysis regimen. 2. Further management will be dependent on the clinical course. From the renal standpoint, the patient is cleared for discharge most likely to a facility. Job ID: [id number]
[2019-07-23] MEDS: Atorvastatin Calcium 10 MG TAB PO SCH (21:37)
[2019-07-24] MEDS: Ipratropium Bromide 2.5 ml Neb NEB SCH ×4 (01:00→19:48)
[2019-07-24] MEDS: Acetaminophen/Codeine 30-300mg Tablet PO PRN ×3 (03:54→16:45)
[2019-07-24] MEDS: Fludrocortisone Acetate 0.1 MG TAB PO SCH (08:55)
[2019-07-24] MEDS: Aspirin 325 MG TAB PO SCH (09:03)
[2019-07-24] MEDS: Famotidine 20 MG TAB PO SCH (09:04)
[2019-07-24] MEDS: Folic Acid 1 MG TAB PO SCH (09:04)
[2019-07-24] MEDS: Sevelamer Carbonate 800 MG TAB PO SCH ×3 (09:04→18:15)
[2019-07-24] MEDS: Polyethylene Glycol 3350 17 GM Packet PO SCH (09:05)
[2019-07-24] MEDS: Raltegravir Potassium 400 MG TAB PO SCH ×2 (09:05→21:27)
--- NOTE | 2019-07-24 13:03 | PRG ---
DATE OF SERVICE: 07/24/2019 SUBJECTIVE: The patient is seen and examined at the bedside. He does not have much complaints to offer. He wants to be fed. He says that he cannot hold the spoon to eat his soup. OBJECTIVE: VITAL SIGNS: Blood pressure is 161/87, pulse is 78, temperature is 98.5, respirations 18, O2 saturation is 94% on 4 L by nasal cannula. HEENT: His head is atraumatic and normocephalic. Eyes are PERRLA. Sclerae are nonicteric. Oral mucosa is moist. NECK: Supple. LUNGS: Breath sounds diminished at both bases with few crackles at both bases. HEART: S1 and S2, normal. No S3. No S4. ABDOMEN: Soft, nontender. EXTREMITIES: He has 2+ edema on his left upper extremity. He has fistula on the left upper arm. He has [id number] amputee status and 1+ peripheral edema of the lower extremity on the right side. LABORATORY DATA: None today. IMPRESSION: 1. Acute on chronic respiratory failure with hypoxemia. 2. Acute metabolic encephalopathy, resolved. 3. Pneumonia. 4. One out of two blood cultures positive for bacteremia with methicillin-resistant Staphylococcus aureus. 5. Physical deconditioning. 6. End-stage renal disease, on dialysis 3 times a week. 7. Human immunodeficiency virus, well controlled. 8. Hypertension. 9. Diabetes mellitus, chronic. 10. Anemia of chronic disease. 11. Esophageal cancer. DISCUSSION: The plan was to do imaging on his sacroiliac area since he complained about this, but he refused further testing. He will continue his vancomycin with dialysis. Apparently, we are working on his financial part, but clinically, he was approved by the assisted, and as soon as he is cleared financially, he can be transferred to the facility. For now, we will continue current regimen. Continue dialysis and continue PT and OT. Job ID: [id number]
--- NOTE | 2019-07-24 17:51 | PRG ---
DATE OF SERVICE: 07/24/2019 SUBJECTIVE: Mr. Villeda is still with pain in the lower back, [id number]. He refused the MRI. Having difficulty eating because of weakness. No dyspnea. No abdominal pain. OBJECTIVE: VITAL SIGNS: Temperature has been normal, BP 160/83, pulse 72, respirations 18, O2 saturation 95%. GENERAL: Chronically-ill appearing, oriented, follows commands. LUNGS: Symmetric air entry. HEART: S1 and S2. Regular rate. ABDOMEN: Soft. Not distended. : He is voiding in the diaper, although he does not have much urine output. LABORATORY DATA: White cell count 4.0, hemoglobin 11, platelets 175, normal differential. We have 1 set of blood cultures with MRSA. The port that he had has been removed. ASSESSMENT AND DISCUSSION: Longstanding well-controlled human immunodeficiency virus infection; type 2 diabetes; end-stage renal disease, on hemodialysis through an arteriovenous fistula in left upper extremity; and esophageal cancer, presumably in remission, although this is not well documented. Methicillin-resistant Staphylococcus aureus bacteremia in 1 out of 2 sets with port having been removed with a plan to continue treatment with sliding scale vancomycin for at least 4 weeks, probably 6 to be on the safe side. The prognosis will heavily depend on the status of his esophageal cancer. It appears to have been treated elsewhere, but knowing the poor prognosis of esophageal cancer, this really will condition the outcome more than anything else. Job ID: [id number]
[2019-07-24] MEDS: Atorvastatin Calcium 10 MG TAB PO SCH (21:27)
[2019-07-24] MEDS: Gabapentin 100 MG CAP PO PRN (21:39)
[2019-07-24] MEDS: traMADol HCl 50 MG TAB PO PRN (21:39)
--- NOTE | 2019-07-24 23:14 | PRG ---
DATE OF SERVICE: 07/24/2019 SUBJECTIVE: The patient noted with the following vital signs. OBJECTIVE: VITAL SIGNS: Afebrile, temperature 98.7, pulse 72, respiratory rate 18, O2 sat of 95%, blood pressure of 165/83. HEENT: Unremarkable. CARDIOVASCULAR: First and second heart sounds were heard. RESPIRATORY: Clear to auscultation. DIGESTIVE SYSTEM: Revealed a benign abdomen with positive bowel sounds. EXTREMITIES: No peripheral edema. SKIN: No new gross rash. LYMPHATICS: No peripheral lymphadenopathy. IMPRESSION: 1. End-stage renal disease, on dialysis, Monday, , Monday schedule. 2. Failure to thrive . PLAN: 1. The patient to continue with current renal supportive measures. 2. From the renal standpoint, the patient is due for discharge. 3. Further management to be dependent on the clinical course. 4. Okay to hold the fludrocortisone for now and monitor the hemodynamics closely. Job ID: [id number]
[2019-07-25] MEDS: Ipratropium Bromide 2.5 ml Neb NEB SCH ×4 (00:15→19:23)
[2019-07-25] MEDS: Acetaminophen/Codeine 30-300mg Tablet PO PRN ×2 (03:32→16:18)
[2019-07-25 08:01] LABS: Vancomycin, Random 11.3 ug/mL (See Comment)
[2019-07-25] MEDS ORDERED: Vancomycin HCl 1.25 GM in Sodium Chloride 0.9% 250 ML 250 ML IVPB SCH (08:30)
[2019-07-25] MEDS ORDERED: Vancomycin HCl 1 GM in Premix Bag 1 BAG IVPB SCH (08:30)
[2019-07-25] MEDS ORDERED: Vancomycin HCl 500 MG in Sodium Chloride 0.9% 100 ML IVPB SCH (08:30)
[2019-07-25] MEDS: Polyethylene Glycol 3350 17 GM Packet PO SCH (09:00)
[2019-07-25 10:15] LABS: #Eosinphils 0.2 thou/uL (0.0-0.7); #Lymphocytes 1.1 thou/uL (1.20-3.40); #Monocytes 0.5 thou/uL (0.11-0.59); #Neutrophils 2.7 thou/uL (1.40-6.50); %Basophils 0.2 % (0.0-1.0); %Eosinophils 4.4 % (0.0-10.0); %Lymphocytes 23.7 % (21.0-51.0); %Monocytes 11.4 % (0.0-10.0); %Neutrophils 60.3 % (42.0-75.0); Hemoglobin 11.8 g/dL (14.0-18.0); Mean Corpuscular HGB CONC 32.7 g/dL (32.0-36.0); Mean Platelet Volume 7.9 fL (7.4-10.4); Platelet Count 255 thou/uL (130-400); RBC Distribution Width 15.4 % (11.5-14.5); Red Blood Cell (RBC) Count 3.38 mill/uL (4.70-6.10); White Blood Cell (WBC) Count 4.5 thou/uL (4.8-10.8)
[2019-07-25] MEDS: Vancomycin HCl 750 MG in Sodium Chloride 0.9% 250 ML 250 ML IVPB SCH (10:15)
[2019-07-25 10:25] LABS: Anion Gap 12 mmol/L (10-20); BUN (Urea Nitrogen) 17 mg/dL (8.4-25.7); Calc. Creatinine Clearance 40 mL/min (70-130); Calcium 8.9 mg/dL (7.8-10.44); Carbon Dioxide 30 mmol/L (23-31); Chloride 98 mmol/L (98-107); Estimated GFR-MDRD 44; Glucose 92 mg/dL (80-115); Potassium 3.6 mmol/L (3.5-5.1); Sodium 136 mmol/L (136-145)
--- NOTE | 2019-07-25 12:43 | PRG ---
DATE OF SERVICE: 07/25/2019 SUBJECTIVE: The patient is seen and examined at the bedside. He explains to me that he has some burning in his coccyx. His appetite is fair. OBJECTIVE: VITAL SIGNS: Blood pressure is 150/72, pulse is 80, respiratory rate is 16, and O2 saturation is 94% on 2 L by nasal cannula. His maximal temperature is 98.7. HEENT: His head is atraumatic and normocephalic. Eyes are PERRLA. Sclerae are nonicteric. Conjunctivae palish. Oral mucosa is moist. NECK: Supple. LUNGS: Clear, although breath sounds are diminished at both bases. HEART: S1 and S2 normal. No S3. No S4. ABDOMEN: Soft and nontender. Bowel sounds are present. EXTREMITIES: He has fistula on the left forearm. LABORATORY DATA: Labs showed white count of 4.5, hemoglobin 11.8, hematocrit 36.1, platelet count is 255. Sodium of 136, potassium 3.6, chloride 98, CO2 of 30, BUN 17, creatinine 1.89, glucose 92, and calcium 8.9. IMPRESSION: 1. Acute on chronic respiratory failure with hypoxemia. 2. Acute metabolic encephalopathy, resolved. 3. Pneumonia. 4. One out of two blood cultures positive for bacteremia with methicillin-resistant Staphylococcus aureus. 5. Physical deconditioning. 6. End-stage renal disease, on dialysis 3 times a week. The patient is supposed to have dialysis today. 7. Human immunodeficiency virus, well controlled. 8. Hypertension. 9. Diabetes mellitus, chronic. 10. Anemia of chronic disease. 11. Esophageal cancer. 12. Sacral decubitus. DISCUSSION: We are basically awaiting for a financial part to be clarified and for now, we will continue current regimen with dialysis and we will start him on vitamin C and zinc. Also, we are going to continue his vancomycin with dialysis and his antiviral medications for HIV, and the patient will be transferred to the facility as soon as financial part is clarified. Job ID: [id number]
[2019-07-25] MEDS ORDERED: Ascorbic Acid 500 mg Chewable Tablet PO SCH (13:00)
[2019-07-25] MEDS ORDERED: Zinc Sulfate 220 MG CAP PO SCH (13:00)
[2019-07-25] MEDS: Famotidine 20 MG TAB PO SCH (13:19)
[2019-07-25] MEDS: Sevelamer Carbonate 800 MG TAB PO SCH ×3 (13:19→19:40)
[2019-07-25] MEDS: Aspirin 325 MG TAB PO SCH (13:19)
[2019-07-25] MEDS: Folic Acid 1 MG TAB PO SCH (13:20)
[2019-07-25] MEDS: Raltegravir Potassium 400 MG TAB PO SCH ×2 (13:21→20:50)
[2019-07-25] MEDS ORDERED: Heparin 10,000 UNITS/ 10 ML VIAL ONE (15:12)
[2019-07-25] MEDS: Atorvastatin Calcium 10 MG TAB PO SCH (20:50)
[2019-07-26] MEDS: Ipratropium Bromide 2.5 ml Neb NEB SCH ×4 (00:20→19:03)
[2019-07-26] MEDS: Gabapentin 100 MG CAP PO PRN (02:23)
[2019-07-26] MEDS: Acetaminophen/Codeine 30-300mg Tablet PO PRN ×3 (05:03→23:36)
[2019-07-26] MEDS: Raltegravir Potassium 400 MG TAB PO SCH ×2 (09:16→20:13)
[2019-07-26] MEDS: Sevelamer Carbonate 800 MG TAB PO SCH ×3 (09:16→16:15)
[2019-07-26] MEDS: Folic Acid 1 MG TAB PO SCH (09:16)
[2019-07-26] MEDS: Famotidine 20 MG TAB PO SCH (09:17)
[2019-07-26] MEDS: Ascorbic Acid 500 mg Chewable Tablet PO SCH (09:17)
[2019-07-26] MEDS: Zinc Sulfate 220 MG CAP PO SCH (09:17)
[2019-07-26] MEDS: Aspirin 325 MG TAB PO SCH (09:17)
[2019-07-26] MEDS: Polyethylene Glycol 3350 17 GM Packet PO SCH (09:18)
--- NOTE | 2019-07-26 12:57 | PRG ---
DATE OF SERVICE: 07/26/2019 SUBJECTIVE: The patient is seen and examined. Noted with the following vital signs. OBJECTIVE: VITAL SIGNS: Afebrile. Temperature 99.1, pulse 75, respiratory rate 16, O2 saturation of 96%, and blood pressure 163/89. HEENT: Unremarkable. CARDIOVASCULAR: First and second heart sounds were heard. RESPIRATORY SYSTEM: Clear to auscultation. DIGESTIVE SYSTEM: Revealed a benign abdomen. EXTREMITIES: No peripheral edema. NEUROLOGICAL: The patient is agitated, but no lateralizing sign. LYMPHATICS: No peripheral lymphadenopathy. LABORATORY INVESTIGATION: Showed white count of . Chemistries showed a creatinine of 1.89 which I think is a reflection of dialysis. IMPRESSION: 1. End-stage renal disease, on hemodialysis Monday, , Monday schedule. 2. Failure to thrive. PLAN: 1. The patient to continue with current scheduled Monday, , Monday dialysis with ultrafiltration as tolerated by hemodynamics. 2. . 3. From the renal standpoint, the patient is due for discharge. Job ID: [id number]
--- NOTE | 2019-07-26 17:35 | PDOC.HOSPP ---
- Subjective Encounter Date: 07/26/19 Encounter Time: 14:00 Subjective: Patient seen and examined for Resp failure/Sepsis. No new CP/SOB or palpitations. No new complaints. No overnight events - Objective Vital Signs & Weight: Vital Signs (12 hours) Temp Pulse Resp BP Pulse Ox 07/26/19 08:00 98.5 F 76 18 167/95 H 97 Weight Admit Weight 158 lb 11.725 oz Weight 154 lb 12.232 oz Most Recent Monitor Data Heart Rate from ECG 106 NIBP 92/57 NIBP BP-Mean 68 Respiration from ECG 17 SpO2 88 I&O: 07/25/19 07/26/19 07/27/19 06:59 06:59 06:59 Intake Total 550 1530 Output Total 3800 550 Balance 550 -2270 -550 Result Diagrams: 07/25/19 09:52 07/25/19 09:52 Hospitalist ROS - Review of Systems Respiratory: denies: cough, dry, shortness of breath, hemoptysis, SOB with excertion, pleuritic pain, sputum, wheezing, other Cardiovascular: denies: chest pain, palpitations, orthopnea, paroxysmal noc. dyspnea, edema, light headedness, other Gastrointestinal: denies: nausea, vomiting, abdominal pain, diarrhea, constipation, melena, hematochezia, other - Medication Medications: Active Medications Generic Name Dose Route Start Last Admin Trade Name Freq PRN Reason Stop Dose Admin Acetaminophen/Codeine Phosphate 1 tab 07/24/19 15:00 07/26/19 16:15 Tylenol #3 PO 1 tab Q6H PRN Administration Moderate Pain (4-7) Ascorbic Acid 500 mg 07/26/19 09:00 07/26/19 09:17 Vitamin C PO 500 mg DAILY ESME Administration Aspirin 325 mg 07/15/19 09:00 07/26/19 09:17 Aspirin PO 325 mg DAILY ESME Administration Atorvastatin Calcium 10 mg 07/14/19 21:00 07/25/19 20:50 Lipitor PO 10 mg HS ESME Administration Clonidine 0.1 mg 07/20/19 06:24 07/22/19 05:37 Catapres PO 0.1 mg Q4H PRN Administration SBP > 160 use second Diphenhydramine HCl 25 mg 07/22/19 21:45 07/22/19 22:05 Benadryl PO 25 mg Q6H PRN Administration Itching & Insomnia Etravirine 200 mg 07/14/19 18:00 07/26/19 09:16 Intelence PO 200 mg BID-PC ESME Administration Famotidine 20 mg 07/22/19 09:00 07/26/19 09:17 Pepcid PO 20 mg DAILY ESME Administration Folic Acid 1 mg 07/15/19 09:00 07/26/19 09:16 Folvite PO 1 mg DAILY ESME Administration Gabapentin 100 mg 07/22/19 21:43 07/26/19 02:23 Neurontin PO 100 mg HS PRN Administration Pain Hydralazine HCl 10 mg 07/18/19 11:32 07/20/19 05:07 Apresoline SLOW IVP 10 mg Q4H PRN Administration SBP > 180 and HR < 70 Hydralazine HCl 10 mg 07/21/19 09:08 07/23/19 00:26 Apresoline PO 10 mg Q4H PRN Administration SBP GREATER THAN 160 Vancomycin HCl 750 mg/ Sodium 250 mls @ 250 mls/hr 07/25/19 08:30 07/25/19 10 :15 Chloride IVPB 250 mls WILLCALL ESME Administration Ipratropium [place] 2.5 ml 07/14/19 13:00 07/26/19 13:53 Atrovent NEB 2.5 ml [id number] ESME Administration Lorazepam 1 mg 07/16/19 17:41 07/18/19 13:44 Ativan SLOW IVP 1 mg Q4H PRN Administration Anxiety/Agitation Pantoprazole Sodium 40 mg 07/15/19 09:00 07/26/19 09:17 Protonix PO 40 mg DAILY ESME Administration Polyethylene Glycol 17 gm 07/22/19 09:00 07/26/19 09:18 Miralax PO Not Given DAILY ESME Raltegravir 400 mg 07/14/19 21:00 07/26/19 09:16 Isentress PO 400 mg BID ESME Administration Senna/Docusate Sodium 2 tab 07/18/19 11:32 07/21/19 22:07 Senokot S PO 2 tab BIDPRN PRN Administration Constipation Sevelamer Carbonate 800 mg 07/14/19 12:00 07/26/19 16:15 Renvela PO 800 mg TID-WM ESME Administration Sodium Chloride 10 ml 07/15/19 21:00 07/26/19 09:18 Flush - Normal Saline IVF Not Given Q12HR ESME Sodium Chloride 10 ml 07/15/19 10:37 07/16/19 05:57 Flush - Normal Saline IVF 10 ml PRN PRN Administration Saline Flush Tramadol HCl 50 mg 07/19/19 09:13 07/24/19 21:39 Ultram PO 50 mg BIDPRN PRN Administration Moderate Pain (4-7) Zidovudine 100 mg 07/14/19 14:00 07/26/19 14:38 Retrovir PO 100 mg Q8HR ESME Administration Zinc Sulfate 220 mg 07/26/19 09:00 07/26/19 09:17 Zinc Sulfate PO 220 mg DAILY ESME Administration Zolpidem Tartrate 5 mg 07/18/19 11:32 07/20/19 21:52 Ambien PO 5 mg HSPRN PRN Administration Insomnia - Exam General Appearance: NAD Heart: RRR, no gallops Respiratory: no rales, no ronchi Gastrointestinal: soft, non-distended, no guarding, no rigidity Extremities: no edema Extremities - other findings: s/p Left AKA Neurological: no new deficit Hosp A/P - Plan DVT proph w/heparin Toxic Metabolic Encephalopathy (POA) Severe Sepsis/Septic shock due to MRSA bacteremia (POA) Acute on chronic hypoxic respiratory failure s/p NIPPV (POA) Type 2 ID (POA) - resolved Recurrent falls Physical deconditioning Chronic diastolic HF PVD s/p left AKA COPD Chronic resp failure on home O2 HTN HIV on HAART DM2 Esophageal CA Chronic Hep C Chronic Sacral decubitus ulcer (POA) PLAN: Await placement - Patient is stable for dc Cont Vancomycin per sliding scale Dialysis per Nephrology Labs Q3day while in hospital Cont other meds as above
--- NOTE | 2019-07-26 18:22 | PRG ---
DATE OF SERVICE: 07/26/2019 SUBJECTIVE: The patient is seen and examined, very eager to be discharged, noted with the following vital signs. OBJECTIVE: VITAL SIGNS: Afebrile, temperature 98.5, pulse 76, respiratory rate of 18, O2 saturations of 97% with a blood pressure 167/95. HEENT: Unremarkable. CARDIOVASCULAR: First and second heart sounds were heard. RESPIRATORY: Clear to auscultation. DIGESTIVE SYSTEM: Revealed a benign abdomen. EXTREMITIES: No peripheral edema. SKIN: No new gross rash. LYMPHATICS: No peripheral lymphadenopathy. IMPRESSION: 1. End-stage renal disease, on hemodialysis. 2. Failure to thrive. 3. Human immunodeficiency virus infection, on treatment. PLAN: 1. Continue current dialysis schedule. No indication for dialysis today. The patient is due for dialysis tomorrow. 2. From the renal standpoint, the patient is due for discharge any time. Job ID: [id number]
[2019-07-26] MEDS: traMADol HCl 50 MG TAB PO PRN (20:13)
[2019-07-26] MEDS: Atorvastatin Calcium 10 MG TAB PO SCH (20:13)
[2019-07-26] MEDS: Lorazepam 0.5 MG TAB PO PRN (22:14)
[2019-07-27] MEDS: Ipratropium Bromide 2.5 ml Neb NEB SCH ×4 (00:55→19:33)
[2019-07-27] MEDS: Sevelamer Carbonate 800 MG TAB PO SCH ×3 (08:47→17:58)
[2019-07-27] MEDS: Vancomycin HCl 750 MG in Sodium Chloride 0.9% 250 ML 250 ML IVPB SCH (12:55)
[2019-07-27] MEDS ORDERED: Aspirin 325 MG TAB PO SCH (15:00)
[2019-07-27] MEDS: Zinc Sulfate 220 MG CAP PO SCH (15:00)
[2019-07-27] MEDS ORDERED: Ascorbic Acid 500 mg Chewable Tablet PO SCH (15:00)
[2019-07-27] MEDS ORDERED: Folic Acid 1 MG TAB PO SCH (15:00)
[2019-07-27] MEDS: Raltegravir Potassium 400 MG TAB PO SCH ×2 (15:00→20:04)
[2019-07-27] MEDS ORDERED: Famotidine 20 MG TAB PO SCH (15:00)
[2019-07-27] MEDS: Ascorbic Acid 500 mg Chewable Tablet PO SCH (16:15)
[2019-07-27] MEDS: Folic Acid 1 MG TAB PO SCH (16:17)
[2019-07-27] MEDS: Polyethylene Glycol 3350 17 GM Packet PO SCH (16:17)
[2019-07-27] MEDS: Famotidine 20 MG TAB PO SCH (16:18)
[2019-07-27] MEDS: Aspirin 325 MG TAB PO SCH (16:18)
[2019-07-27] MEDS: Lorazepam 0.5 MG TAB PO PRN (16:43)
--- NOTE | 2019-07-27 17:28 | PRG ---
DATE OF SERVICE: 07/27/2019 SUBJECTIVE: The patient is seen and examined during hemodialysis. He does not have much complaints to offer. He noticed less pain in his sacral area since he was started on vitamin C and zinc. His appetite is very good. He feels somewhat better than yesterday. OBJECTIVE: VITAL SIGNS: Blood pressure is 152/82, pulse is 78, temperature is 97.9, respirations 16, and O2 saturation is 93% on 3 L by nasal cannula. HEENT: His head is atraumatic and normocephalic. Eyes are PERRLA. Sclerae are nonicteric. Conjunctivae palish. Oral mucosa is moist. NECK: Supple. LUNGS: Breath sounds diminished at both bases. HEART: S1 and S2 normal. No S3. No S4. ABDOMEN: Soft and nontender. Bowel sounds are present. EXTREMITIES: Status post left AKA. NEUROLOGIC: He is alert and oriented x4. There is no any motor deficits. IMPRESSION: 1. Acute on chronic respiratory failure with hypoxemia, resolved. 2. Acute metabolic encephalopathy, resolved. 3. Pneumonia. 4. One out of two blood cultures positive for bacteremia with methicillin-resistant Staphylococcus aureus. 5. Physical deconditioning. 6. End-stage renal disease, on dialysis 3 times a week. 7. Human immunodeficiency virus, well-controlled infection. 8. Hypertension. 9. Diabetes mellitus type 2, chronic, stable. 10. Anemia of chronic disease. 11. Esophageal cancer. 12. Sacral decubitus. 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 He is started on vitamin C and zinc yesterday for his sacral decubitus and he noticed significant improvement in terms of pain. He will be going to continue his vancomycin treatment during dialysis and antiviral medications for HIV. He will continue his PT while in the hospital awaiting the transfer. Job ID: [id number]
--- NOTE | 2019-07-27 18:35 | PRG ---
DATE OF SERVICE: 07/27/2019 SUBJECTIVE: The patient, Brant Villeda, noted with the following vital signs. OBJECTIVE: VITAL SIGNS: Afebrile, temperature 97.9, pulse 78, respiratory rate 16, O2 saturations of 93% to 99% with blood pressure of 152/82. HEENT: Unremarkable. CARDIOVASCULAR SYSTEM: First and second heart sounds were heard. RESPIRATORY SYSTEM: Clear to auscultation. DIGESTIVE SYSTEM: Revealed a benign abdomen. EXTREMITIES: No peripheral edema. SKIN: No new gross rash. LYMPHATICS: No peripheral lymphadenopathy. IMPRESSION: 1. End-stage renal disease, on hemodialysis Monday, , and Monday, due for dialysis today. 2. Failure to thrive. 3. Hypertension. PLAN: 1. The patient is currently awaiting placement. 2. We will continue with dialysis schedule. Job ID: [id number]
[2019-07-27] MEDS: cloNIDine 0.1 MG TAB PO PRN (20:00)
[2019-07-27] MEDS: Atorvastatin Calcium 10 MG TAB PO SCH (20:04)
[2019-07-28] MEDS: Ipratropium Bromide 2.5 ml Neb NEB SCH ×2 (01:04→08:22)
[2019-07-28] MEDS: Acetaminophen/Codeine 30-300mg Tablet PO PRN ×2 (02:11→13:37)
[2019-07-28] MEDS: cloNIDine 0.1 MG TAB PO PRN (04:26)
[2019-07-28] MEDS ORDERED: Ipratropium Bromide 2.5 ml Neb NEB PRN ×2 (07:55→08:21)
[2019-07-28] MEDS: Raltegravir Potassium 400 MG TAB PO SCH ×2 (08:41→19:36)
[2019-07-28] MEDS: Sevelamer Carbonate 800 MG TAB PO SCH ×3 (08:42→17:12)
[2019-07-28] MEDS: Famotidine 20 MG TAB PO SCH (08:42)
[2019-07-28] MEDS: Zinc Sulfate 220 MG CAP PO SCH (08:42)
[2019-07-28] MEDS: Ascorbic Acid 500 mg Chewable Tablet PO SCH (08:42)
[2019-07-28] MEDS: Aspirin 325 MG TAB PO SCH (08:42)
[2019-07-28] MEDS: Folic Acid 1 MG TAB PO SCH (08:43)
[2019-07-28] MEDS: Polyethylene Glycol 3350 17 GM Packet PO SCH (08:44)
[2019-07-28] MEDS ORDERED: Morphine 2 MG/ML SYRINGE SLOW IVP PRN (11:58)
--- NOTE | 2019-07-28 13:11 | PRG ---
DATE OF SERVICE: 07/28/2019 SUBJECTIVE: The patient is seen and examined at the bedside. He had dialysis yesterday. He complains about the pain in his sacral area where he has decubitus. He is asking for morphine. He says that only morphine helps his pain, even Marlow does not really help much. OBJECTIVE: VITAL SIGNS: Blood pressure is 167/99, pulse is 76, temperature is 98.5, respirations 16, and O2 saturation is 93% on 3 L by nasal cannula. HEENT: His pupils are responding to light properly. Sclerae are nonicteric. Conjunctivae are palish. Oral mucosa is moist. NECK: Supple. LUNGS: Breath sounds somewhat diminished at both bases. HEART: S1 and S2 are normal. No S3. No S4. ABDOMEN: Soft and nontender. EXTREMITIES: He has a fistula on the left upper extremity in forearm. He has [id number] on the left side amputee status. NEUROLOGIC: He follows my commands. He moves his 4 extremities. LABORATORY DATA: None today. IMPRESSION: 1. [id number] respiratory failure with hypoxemia, resolved. 2. Acute metabolic encephalopathy, resolved. 3. Pneumonia. 4. One out of two blood cultures positive for bacteremia with methicillin-resistant Staphylococcus aureus. 5. Physical deconditioning. 6. End-stage renal disease, on dialysis 3 times a week. 7. Human immunodeficiency virus, well-controlled infection. 8. Hypertension. 9. Diabetes mellitus, type 2, chronic, stable. 10. Sacral decubitus. 11. Anemia of chronic disease. 12. Esophageal cancer. DISCUSSION: The patient is awaiting for placement at the correction with hospice. We are going to start him on morphine p.r.n. for his pain in the sacral area secondary to decubitus. We will continue his vitamin C and zinc to help skin to heal, and as soon as he is arranged for placement, he will be transferred. Job ID: [id number]
[2019-07-28] MEDS: traMADol HCl 50 MG TAB PO PRN (17:11)
--- NOTE | 2019-07-28 18:48 | PRG ---
DATE OF SERVICE: 07/28/2019 SUBJECTIVE: Noted with the following vital signs. OBJECTIVE: VITAL SIGNS: Blood pressure 167/99, pulse 76, afebrile, temperature 98.5, respiratory rate of 16, and O2 saturations 93%. HEENT: Unremarkable. CARDIOVASCULAR SYSTEM: First and second heart sounds were heard. RESPIRATORY SYSTEM: Clear to auscultation. DIGESTIVE SYSTEM: Revealed a benign abdomen. Positive bowel sounds. EXTREMITIES: No peripheral edema. SKIN: No new gross rash. LYMPHATICS: No peripheral lymphadenopathy. IMPRESSION: 1. End-stage renal disease on hemodialysis. 2. Acute on chronic respiratory failure, resolved. 3. Sacral decubitus ulcer. 4. Diabetes mellitus, type 2. PLAN: The patient is currently awaiting placement. Meanwhile, we will continue with current regimen of dialysis on Monday, , and Monday schedule. Job ID: [id number]
[2019-07-28] MEDS: Atorvastatin Calcium 10 MG TAB PO SCH (19:36)
[2019-07-28] MEDS: hydrALAZINE 10 MG TAB PO PRN (19:36)
[2019-07-29] MEDS: hydrALAZINE 10 MG TAB PO PRN ×2 (00:51→09:25)
[2019-07-29] MEDS: Gabapentin 100 MG CAP PO PRN (00:52)
[2019-07-29] MEDS: traMADol HCl 50 MG TAB PO PRN (00:53)
--- NOTE | 2019-07-29 07:42 | PDOC.HOSPP ---
- Subjective Encounter Date: 07/29/19 Encounter Time: 11:00 Subjective: pain from sacral decubitus, no other complaints, awaiting placement possibly at [facility] - Objective Vital Signs & Weight: Vital Signs (12 hours) Temp Pulse Resp BP BP Pulse Ox 07/29/19 00:51 82 191/103 H 07/28/19 21:44 175/89 H 07/28/19 20:24 98.8 F 82 18 188/101 H 92 L Weight Admit Weight 158 lb 11.725 oz Weight 154 lb 12.232 oz Most Recent Monitor Data Heart Rate from ECG 106 NIBP 92/57 NIBP BP-Mean 68 Respiration from ECG 17 SpO2 88 I&O: 07/28/19 07/29/19 07/30/19 06:59 06:59 06:59 Intake Total 1250 720 Balance 1250 720 Result Diagrams: 07/25/19 09:52 07/25/19 09:52 Hospitalist ROS - Review of Systems Constitutional: denies: fever, chills ENT: denies: nose congestion, throat swelling Respiratory: denies: cough, shortness of breath, wheezing Cardiovascular: denies: chest pain Gastrointestinal: denies: nausea, vomiting, abdominal pain Musculoskeletal: reports: back pain Neurological: denies: change in speech, confusion - Medication Medications: Active Medications Generic Name Dose Route Start Last Admin Trade Name Freq PRN Reason Stop Dose Admin Acetaminophen/Codeine Phosphate 1 tab 07/24/19 15:00 07/28/19 13:37 Tylenol #3 PO 1 tab Q6H PRN Administration Moderate Pain (4-7) Ascorbic Acid 500 mg 07/26/19 09:00 07/28/19 08:42 Vitamin C PO 500 mg DAILY ESME Administration Aspirin 325 mg 07/15/19 09:00 07/28/19 08:42 Aspirin PO 325 mg DAILY ESME Administration Atorvastatin Calcium 10 mg 07/14/19 21:00 07/28/19 19:36 Lipitor PO 10 mg HS ESME Administration Clonidine 0.1 mg 07/20/19 06:24 07/28/19 04:26 Catapres PO 0.1 mg Q4H PRN Administration SBP > 160 use second Diphenhydramine HCl 25 mg 07/22/19 21:45 07/22/19 22:05 Benadryl PO 25 mg Q6H PRN Administration Itching & Insomnia Etravirine 200 mg 07/14/19 18:00 07/28/19 17:12 Intelence PO 200 mg BID-PC ESME Administration Famotidine 20 mg 07/22/19 09:00 07/28/19 08:42 Pepcid PO 20 mg DAILY ESME Administration Folic Acid 1 mg 07/15/19 09:00 07/28/19 08:43 Folvite PO 1 mg DAILY ESME Administration Gabapentin 100 mg 07/22/19 21:43 07/29/19 00:52 Neurontin PO 100 mg HS PRN Administration Pain Hydralazine HCl 10 mg 07/18/19 11:32 07/20/19 05:07 Apresoline SLOW IVP 10 mg Q4H PRN Administration SBP > 180 and HR < 70 Hydralazine HCl 10 mg 07/21/19 09:08 07/29/19 00:51 Apresoline PO 10 mg Q4H PRN Administration SBP GREATER THAN 160 Vancomycin HCl 750 mg/ Sodium 250 mls @ 250 mls/hr 07/25/19 08:30 07/27/19 12 :55 Chloride IVPB 250 mls WILLCALL ESME Administration Pantoprazole Sodium 40 mg 07/15/19 09:00 07/28/19 08:43 Protonix PO 40 mg DAILY ESME Administration Polyethylene Glycol 17 gm 07/22/19 09:00 07/28/19 08:44 Miralax PO Not Given DAILY ESME Raltegravir 400 mg 07/14/19 21:00 07/28/19 19:36 Isentress PO 400 mg BID ESME Administration Senna/Docusate Sodium 2 tab 07/18/19 11:32 07/21/19 22:07 Senokot S PO 2 tab BIDPRN PRN Administration Constipation Sevelamer Carbonate 800 mg 07/14/19 12:00 07/28/19 17:12 Renvela PO 800 mg TID-WM ESME Administration Sodium Chloride 10 ml 07/15/19 21:00 07/28/19 19:38 Flush - Normal Saline IVF Not Given Q12HR ESME Sodium Chloride 10 ml 07/15/19 10:37 07/16/19 05:57 Flush - Normal Saline IVF 10 ml PRN PRN Administration Saline Flush Tramadol HCl 50 mg 07/19/19 09:13 07/29/19 00:53 Ultram PO 50 mg BIDPRN PRN Administration Moderate Pain (4-7) Zidovudine 100 mg 07/14/19 14:00 07/29/19 05:27 Retrovir PO 100 mg Q8HR ESME Administration Zinc Sulfate 220 mg 07/26/19 09:00 07/28/19 08:42 Zinc Sulfate PO 220 mg DAILY ESME Administration Zolpidem Tartrate 5 mg 07/18/19 11:32 07/20/19 21:52 Ambien PO 5 mg HSPRN PRN Administration Insomnia - Exam General Appearance: NAD, awake alert ENT: normocephalic atraumatic, moist mucosa Neck: supple, no JVD Heart: RRR, no murmur Respiratory: CTAB, no wheezes Gastrointestinal: soft, non-tender, normal bowel sounds Skin - other findings: stage 2 sacral decubitus Psychiatric: normal affect, normal behavior, A&O x 3 Hosp A/P (1) Acute metabolic encephalopathy Code(s): G93.41 - METABOLIC ENCEPHALOPATHY Status: Resolved (2) Sepsis associated hypotension Code(s): A41.9 - SEPSIS, UNSPECIFIED ORGANISM; I95.9 - HYPOTENSION, UNSPECIFIED Status: Resolved (3) Sepsis due to methicillin resistant Staphylococcus aureus (MRSA) Code(s): A41.02 - SEPSIS DUE TO METHICILLIN RESISTANT STAPHYLOCOCCUS AUREUS Status: Acute Plan: on Vancomycin sliding scale, port removed, Dr. Morris following (4) HTN (hypertension) Code(s): I10 - ESSENTIAL (PRIMARY) HYPERTENSION Status: Chronic Qualifiers: Hypertension type: essential hypertension Qualified Code(s): I10 - Essential (primary) hypertension Plan: severely elevated over the weekend, reporting pain from decubitus now on Morphine, possibly volume overloaded as well (5) NSTEMI (non-ST elevated myocardial infarction) Code(s): I21.4 - NON-ST ELEVATION (NSTEMI) MYOCARDIAL INFARCTION Status: Resolved Plan: type 2 ME, prior to arrival (6) Esophageal cancer Status: Chronic Qualifiers: Malignant neoplasm of esophagus location: unspecified location Qualified Code(s): C15.9 - Malignant neoplasm of esophagus, unspecified Plan: uncertain results of previous treatment (7) HIV (human immunodeficiency virus infection) Code(s): B20 - HUMAN IMMUNODEFICIENCY VIRUS [HIV] DISEASE Status: Chronic Qualifiers: HIV symptom status: unspecified Qualified Code(s): B20 - Human immunodeficiency virus [HIV] disease Plan: On HAART, Dr. Morris following (8) Hepatitis C Code(s): B19.20 - UNSPECIFIED VIRAL HEPATITIS C WITHOUT HEPATIC COMA Status: Chronic Qualifiers: Viral hepatitis chronicity: chronic Hepatic coma status: without hepatic coma Qualified Code(s): B18.2 - Chronic viral hepatitis C (9) Chronic pain Code(s): G89.29 - OTHER CHRONIC PAIN Status: Chronic (10) ESRD (end stage renal disease) on dialysis Code(s): N18.6 - END STAGE RENAL DISEASE; Z99.2 - DEPENDENCE ON RENAL DIALYSIS Status: Chronic (11) Sacral decubitus ulcer Code(s): L89.159 - PRESSURE ULCER OF SACRAL REGION, UNSPECIFIED STAGE Status: Chronic Qualifiers: Pressure injury stage: stage 2 Qualified Code(s): L89.152 - Pressure ulcer of sacral region, stage 2 - Plan PT/OT awaiting placement Pulmonology Consult: Meds - Medications Medications: Current Medications Acetaminophen/Codeine Phosphate (Tylenol #3) 1 tab PO Q6H PRN PRN Reason: Moderate Pain (4-7) Last Admin: 07/28/19 13:37 Dose: 1 tab Albuterol Sulfate (Proventil Hfa) 2 puff INH Q6H PRN PRN Reason: Dyspnea/Wheezing/SOB Artificial Tears (Tears Naturale) 2 drop EA EYE PRN PRN PRN Reason: Dry Eyes Ascorbic Acid (Vitamin C) 500 mg PO DAILY [facility] Last Admin: 07/28/19 08:42 Dose: 500 mg Aspirin (Aspirin) 325 mg PO DAILY [facility] Last Admin: 07/28/19 08:42 Dose: 325 mg Atorvastatin Calcium (Lipitor) 10 mg PO HS [facility] Last Admin: 07/28/19 19:36 Dose: 10 mg Bisacodyl (Dulcolax) 10 mg SC DAILYPRN PRN PRN Reason: Constipation Calcium Carbonate (Tums) 1,000 mg PO Q4H PRN PRN Reason: Heartburn or Indigestion Clonidine (Catapres) 0.1 mg PO Q4H PRN PRN Reason: SBP > 160 use second Last Admin: 07/28/19 04:26 Dose: 0.1 mg Diphenhydramine HCl (Benadryl) 25 mg PO Q6H PRN PRN Reason: Itching & Insomnia Last Admin: 07/22/19 22:05 Dose: 25 mg Etravirine (Intelence) 200 mg PO BID-PC [facility] Last Admin: 07/28/19 17:12 Dose: 200 mg Famotidine (Pepcid) 20 mg PO DAILY [facility] Last Admin: 07/28/19 08:42 Dose: 20 mg Folic Acid (Folvite) 1 mg PO DAILY [facility] Last Admin: 07/28/19 08:43 Dose: 1 mg Gabapentin (Neurontin) 100 mg PO HS PRN PRN Reason: Pain Last Admin: 07/29/19 00:52 Dose: 100 mg Guaifenesin (Robitussin Sf) 200 mg PO Q4H PRN PRN Reason: Cough Haloperidol Lactate (Haldol) 5 mg SLOW IVP Q4H PRN PRN Reason: Anxiety/Agitation Hydralazine HCl (Apresoline) 10 mg SLOW IVP Q4H PRN PRN Reason: SBP > 180 and HR < 70 Last Admin: 07/20/19 05:07 Dose: 10 mg Hydralazine HCl (Apresoline) 10 mg PO Q4H PRN PRN Reason: SBP GREATER THAN 160 Last Admin: 07/29/19 00:51 Dose: 10 mg Vancomycin HCl 1.25 gm/ Sodium (Chloride) 250 mls @ 166.667 mls/hr IVPB [facility] Vancomycin HCl 1 gm/ Device 200 mls @ 200 mls/hr IVPB [facility] Vancomycin HCl 750 mg/ Sodium (Chloride) 250 mls @ 250 mls/hr IVPB [facility] Last Admin: 07/27/19 12:55 Dose: 250 mls Vancomycin HCl 500 mg/ Sodium (Chloride) 100 mls @ 100 mls/hr IVPB [facility] Ipratropium [place] (Atrovent) 2.5 ml NEB Q6H PRN PRN Reason: SOB &/or Wheezing Loperamide HCl (Imodium) 2 mg PO PRN PRN PRN Reason: Diarrhea/Loose Stools Loratadine (Claritin) 10 mg PO DAILYPRN PRN PRN Reason: Sinus Symptoms Miscellaneous Medication (Pharmacy To Dose) 1 each IVPB .VANCOMYCIN PRN PRN Reason: Pharmacy to dose Morphine Sulfate (Morphine) 2 mg SLOW IVP Q4H PRN PRN Reason: Pain Hold Vancomycin For (Level >20) 0 each FS .[facility]IAL[facility] Ondansetron HCl (Zofran Odt) 4 mg PO Q6H PRN PRN Reason: Nausea/Vomiting Ondansetron HCl (Zofran) 4 mg IVP Q6H PRN PRN Reason: Nausea/Vomiting Pantoprazole Sodium (Protonix) 40 mg PO DAILY [facility] Last Admin: 07/28/19 08:43 Dose: 40 mg Polyethylene Glycol (Miralax) 17 gm PO DAILY [facility] Last Admin: 07/28/19 08:44 Dose: Not Given Raltegravir (Isentress) 400 mg PO BID [facility] Last Admin: 07/28/19 19:36 Dose: 400 mg Senna/Docusate Sodium (Senokot S) 2 tab PO BIDPRN PRN PRN Reason: Constipation Last Admin: 07/21/19 22:07 Dose: 2 tab Sevelamer Carbonate (Renvela) 800 mg PO TID-WM [facility] Last Admin: 07/28/19 17:12 Dose: 800 mg Sodium Chloride (Flush - Normal Saline) 10 ml IVF Q12HR [facility] Last Admin: 07/28/19 19:38 Dose: Not Given Sodium Chloride (Flush - Normal Saline) 10 ml IVF PRN PRN PRN Reason: Saline Flush Last Admin: 07/16/19 05:57 Dose: 10 ml Sodium Chloride ([place]al [place] 0.65%) 0 ml EA NARE QIDPRN PRN PRN Reason: Nasal Congestion Throat Lozenges (Cepastat Lozenges) 1 deyvi PO Q2H PRN PRN Reason: Sore Throat Tramadol HCl (Ultram) 50 mg PO BIDPRN PRN PRN Reason: Moderate Pain (4-7) Last Admin: 07/29/19 00:53 Dose: 50 mg Zidovudine (Retrovir) 100 mg PO Q8HR [facility] Last Admin: 07/29/19 05:27 Dose: 100 mg Zinc Sulfate (Zinc Sulfate) 220 mg PO DAILY [facility] Last Admin: 07/28/19 08:42 Dose: 220 mg Zolpidem Tartrate (Ambien) 5 mg PO HSPRN PRN PRN Reason: Insomnia Last Admin: 07/20/19 21:52 Dose: 5 mg - Allergies Allergies/Adverse Reactions: Allergies Allergy/AdvReac Type Severity Reaction Status Date / Time clindamycin Allergy Intermediate CAUSED Verified 07/13/19 14:23 HYPERKALEMIA paroxetine HCl [From Paxil] Allergy Intermediate PT STATES Verified 07/13/19 14: 23 IT MADE HIM VERY CRAZY IN HEAD cephalexin Allergy Verified 07/13/19 14:23 ciprofloxacin Allergy Verified 07/13/19 14:23 dalteparin,porcine Allergy Verified 07/13/19 14:23 [From Fragmin]
[2019-07-29] MEDS: Folic Acid 1 MG TAB PO SCH (09:08)
[2019-07-29] MEDS: Raltegravir Potassium 400 MG TAB PO SCH ×2 (09:08→20:38)
[2019-07-29] MEDS: Aspirin 325 MG TAB PO SCH (09:08)
[2019-07-29] MEDS: Ascorbic Acid 500 mg Chewable Tablet PO SCH (09:08)
[2019-07-29] MEDS: Famotidine 20 MG TAB PO SCH (09:08)
[2019-07-29] MEDS: Sevelamer Carbonate 800 MG TAB PO SCH ×3 (09:08→18:08)
[2019-07-29] MEDS: Polyethylene Glycol 3350 17 GM Packet PO SCH (09:09)
[2019-07-29] MEDS: Zinc Sulfate 220 MG CAP PO SCH (09:11)
[2019-07-29] MEDS: Acetaminophen/Codeine 30-300mg Tablet PO PRN (12:46)
[2019-07-29] MEDS: hydrALAZINE 25 MG TAB PO SCH ×2 (15:48→20:38)
[2019-07-29] MEDS: Atorvastatin Calcium 10 MG TAB PO SCH (20:38)
--- NOTE | 2019-07-30 00:05 | PRG ---
DATE OF SERVICE: 07/29/2019 SUBJECTIVE: The patient was seen and examined. Noted with the following vital signs. OBJECTIVE: VITAL SIGNS: Afebrile. Temperature 97.7, pulse 79, blood pressure 180/109, respiratory rate of 18, O2 saturations of 93%. HEENT: Unremarkable. CARDIOVASCULAR: First and second heart sounds were heard. RESPIRATORY SYSTEM: Clear to auscultation. DIGESTIVE SYSTEM: Revealed a benign abdomen. Positive bowel sounds. EXTREMITIES: No peripheral edema. SKIN: No new gross rash. LYMPHATICS: No peripheral lymphadenopathy. IMPRESSION: 1. End-stage renal disease, on hemodialysis, Monday, and Monday, due for dialysis tomorrow. 2. Hypertension, suboptimally controlled. 3. . PLAN: 1. The patient to continue with current regimen of hemodialysis with ultrafiltration as tolerated by hemodynamics. 2. Adjust antihypertensive medications to optimize the patient's hemodynamics. 3. Further management to be dependent on the clinical course. Job ID: [id number]
[2019-07-30] MEDS: hydrALAZINE 10 MG TAB PO PRN (06:09)
--- NOTE | 2019-07-30 07:47 | PDOC.HOSPP ---
- Subjective Encounter Date: 07/30/19 Encounter Time: 09:00 Subjective: Patient reports some pain from sacral ulcer. No other complaints. Awaiting placement. - Objective Vital Signs & Weight: Vital Signs (12 hours) Temp Pulse Resp BP BP Pulse Ox 07/30/19 07:24 97.6 F 77 20 193/106 H 93 L 07/30/19 06:09 200/110 H 07/29/19 22:16 190/98 H 07/29/19 20:38 79 180/109 H 07/29/19 20:32 97.7 F 79 18 187/109 H 93 L Weight Admit Weight 158 lb 11.725 oz Weight 154 lb 12.232 oz Most Recent Monitor Data Heart Rate from ECG 106 NIBP 92/57 NIBP BP-Mean 68 Respiration from ECG 17 SpO2 88 I&O: 07/29/19 07/30/19 07/31/19 06:59 06:59 06:59 Intake Total 720 800 Balance 720 800 Result Diagrams: 07/25/19 09:52 07/25/19 09:52 Additional Labs: Accuchecks 07/30/19 07/29/19 07/29/19 05:19 19:38 19:17 POC Glucose 80 88 77 07/29/19 16:55 POC Glucose 76 Hospitalist ROS - Review of Systems Respiratory: denies: cough, shortness of breath Cardiovascular: denies: chest pain, palpitations, orthopnea Gastrointestinal: denies: nausea, vomiting, abdominal pain Musculoskeletal: reports: back pain - Medication Medications: Active Medications Generic Name Dose Route Start Last Admin Trade Name Freq PRN Reason Stop Dose Admin Acetaminophen/Codeine Phosphate 1 tab 07/24/19 15:00 07/28/19 13:37 Tylenol #3 PO 1 tab Q6H PRN Administration Mild-Moderate Pain (1-5) Acetaminophen/Codeine Phosphate 2 tab 07/29/19 11:05 07/29/19 12:46 Tylenol #3 PO 2 tab Q6H PRN Administration Moderate to Severe Pain (6-10) Ascorbic Acid 500 mg 07/26/19 09:00 07/29/19 09:08 Vitamin C PO 500 mg DAILY ESME Administration Aspirin 325 mg 07/15/19 09:00 07/29/19 09:08 Aspirin PO 325 mg DAILY ESME Administration Atorvastatin Calcium 10 mg 07/14/19 21:00 07/29/19 20:38 Lipitor PO 10 mg HS ESME Administration Clonidine 0.1 mg 07/20/19 06:24 07/28/19 04:26 Catapres PO 0.1 mg Q4H PRN Administration SBP > 160 use second Diphenhydramine HCl 25 mg 07/22/19 21:45 07/22/19 22:05 Benadryl PO 25 mg Q6H PRN Administration Itching & Insomnia Etravirine 200 mg 07/14/19 18:00 07/29/19 18:08 Intelence PO 200 mg BID-PC ESME Administration Famotidine 20 mg 07/22/19 09:00 07/29/19 09:08 Pepcid PO 20 mg DAILY ESME Administration Folic Acid 1 mg 07/15/19 09:00 07/29/19 09:08 Folvite PO 1 mg DAILY ESME Administration Gabapentin 100 mg 07/22/19 21:43 07/29/19 00:52 Neurontin PO 100 mg HS PRN Administration Pain Hydralazine HCl 10 mg 07/18/19 11:32 07/20/19 05:07 Apresoline SLOW IVP 10 mg Q4H PRN Administration SBP > 180 and HR < 70 Hydralazine HCl 10 mg 07/21/19 09:08 07/30/19 06:09 Apresoline PO 10 mg Q4H PRN Administration SBP GREATER THAN 160 Vancomycin HCl 750 mg/ Sodium 250 mls @ 250 mls/hr 07/25/19 08:30 07/27/19 12 :55 Chloride IVPB 250 mls WILLCALL ESME Administration Pantoprazole Sodium 40 mg 07/15/19 09:00 07/29/19 09:09 Protonix PO 40 mg DAILY ESME Administration Polyethylene Glycol 17 gm 07/22/19 09:00 07/29/19 09:09 Miralax PO Not Given DAILY ESME Raltegravir 400 mg 07/14/19 21:00 07/29/19 20:38 Isentress PO 400 mg BID ESME Administration Senna/Docusate Sodium 2 tab 07/18/19 11:32 07/21/19 22:07 Senokot S PO 2 tab BIDPRN PRN Administration Constipation Sevelamer Carbonate 800 mg 07/14/19 12:00 07/29/19 18:08 Renvela PO 800 mg TID-WM ESME Administration Sodium Chloride 10 ml 07/15/19 21:00 07/29/19 20:58 Flush - Normal Saline IVF Not Given Q12HR ESME Sodium Chloride 10 ml 07/15/19 10:37 07/16/19 05:57 Flush - Normal Saline IVF 10 ml PRN PRN Administration Saline Flush Zidovudine 100 mg 07/14/19 14:00 07/30/19 06:10 Retrovir PO 100 mg Q8HR ESME Administration Zinc Sulfate 220 mg 07/26/19 09:00 07/29/19 09:11 Zinc Sulfate PO 220 mg DAILY ESME Administration Zolpidem Tartrate 5 mg 07/18/19 11:32 07/20/19 21:52 Ambien PO 5 mg HSPRN PRN Administration Insomnia - Exam General Appearance: NAD Eye: anicteric sclera ENT: normocephalic atraumatic, moist mucosa Heart: RRR, no murmur, no gallops, no rubs Respiratory: CTAB, no wheezes Gastrointestinal: soft, non-tender, non-distended, normal bowel sounds Psychiatric: normal affect, normal behavior, A&O x 3 Hosp A/P (1) Acute metabolic encephalopathy Code(s): G93.41 - METABOLIC ENCEPHALOPATHY Status: Resolved (2) Sepsis associated hypotension Code(s): A41.9 - SEPSIS, UNSPECIFIED ORGANISM; I95.9 - HYPOTENSION, UNSPECIFIED Status: Resolved (3) Sepsis due to methicillin resistant Staphylococcus aureus (MRSA) Code(s): A41.02 - SEPSIS DUE TO METHICILLIN RESISTANT STAPHYLOCOCCUS AUREUS Status: Acute Plan: Getting Vanc sliding scale per Dr. Morris recommendations for 4-6 weeks (4) HTN (hypertension) Code(s): I10 - ESSENTIAL (PRIMARY) HYPERTENSION Status: Chronic Qualifiers: Hypertension type: essential hypertension Qualified Code(s): I10 - Essential (primary) hypertension Plan: Still very elevated this AM. Will increase Hydralazine to 50mg TID (5) NSTEMI (non-ST elevated myocardial infarction) Code(s): I21.4 - NON-ST ELEVATION (NSTEMI) MYOCARDIAL INFARCTION Status: Resolved (6) Esophageal cancer Status: Chronic Qualifiers: Malignant neoplasm of esophagus location: unspecified location Qualified Code(s): C15.9 - Malignant neoplasm of esophagus, unspecified (7) HIV (human immunodeficiency virus infection) Code(s): B20 - HUMAN IMMUNODEFICIENCY VIRUS [HIV] DISEASE Status: Chronic Qualifiers: HIV symptom status: unspecified Qualified Code(s): B20 - Human immunodeficiency virus [HIV] disease (8) Hepatitis C Code(s): B19.20 - UNSPECIFIED VIRAL HEPATITIS C WITHOUT HEPATIC COMA Status: Chronic Qualifiers: Viral hepatitis chronicity: chronic Hepatic coma status: without hepatic coma Qualified Code(s): B18.2 - Chronic viral hepatitis C (9) Chronic pain Code(s): G89.29 - OTHER CHRONIC PAIN Status: Chronic (10) ESRD (end stage renal disease) on dialysis Code(s): N18.6 - END STAGE RENAL DISEASE; Z99.2 - DEPENDENCE ON RENAL DIALYSIS Status: Chronic (11) Sacral decubitus ulcer Code(s): L89.159 - PRESSURE ULCER OF SACRAL REGION, UNSPECIFIED STAGE Status: Chronic Qualifiers: Pressure injury stage: stage 2 Qualified Code(s): L89.152 - Pressure ulcer of sacral region, stage 2 - Plan continue antibiotics, PT/OT awaiting placement, possibly at [facility]
[2019-07-30] MEDS: Acetaminophen/Codeine 30-300mg Tablet PO PRN ×2 (08:18→14:35)
[2019-07-30] MEDS: Folic Acid 1 MG TAB PO SCH (08:19)
[2019-07-30] MEDS: Famotidine 20 MG TAB PO SCH (08:19)
[2019-07-30] MEDS: Aspirin 325 MG TAB PO SCH (08:19)
[2019-07-30] MEDS: Sevelamer Carbonate 800 MG TAB PO SCH ×3 (08:19→17:44)
[2019-07-30] MEDS: Raltegravir Potassium 400 MG TAB PO SCH ×2 (08:20→20:15)
[2019-07-30] MEDS: Ascorbic Acid 500 mg Chewable Tablet PO SCH (08:20)
[2019-07-30] MEDS: Zinc Sulfate 220 MG CAP PO SCH (08:20)
[2019-07-30] MEDS: hydrALAZINE 25 MG TAB PO SCH ×3 (08:20→20:15)
[2019-07-30] MEDS: Polyethylene Glycol 3350 17 GM Packet PO SCH (08:21)
[2019-07-30 10:00] LABS: Vancomycin, Random 13.2 ug/mL (See Comment)
--- NOTE | 2019-07-30 18:02 | PRG ---
DATE OF SERVICE: 07/30/2019 SUBJECTIVE: The patient is seen and examined on dialysis. Noted with the following vital signs. OBJECTIVE: VITAL SIGNS: Afebrile, temperature 97.6, pulse 77, respiratory rate of 20, O2 saturation of 93% with blood pressure 193/106. HEENT: Unremarkable. CARDIOVASCULAR: First and second heart sounds were heard. RESPIRATORY SYSTEM: Clear to auscultation. DIGESTIVE SYSTEM: Revealed a benign abdomen. Positive bowel sounds. EXTREMITIES: No peripheral edema. SKIN: No new gross rash. LYMPHATICS: No peripheral lymphadenopathy. IMPRESSION: 1. End-stage renal disease, on hemodialysis. 2. Hypertension, suboptimally controlled. PLAN: 1. We will adjust this patient's antihypertensive medications to optimize hemodynamics. 2. Continue current dialysis regimen. Job ID: [id number]
[2019-07-30] MEDS: Carvedilol 3.125 MG TAB PO SCH (20:15)
[2019-07-30] MEDS: Atorvastatin Calcium 10 MG TAB PO SCH (20:15)
[2019-07-30] MEDS: diphenhydrAMINE 25 MG CAP PO PRN (20:29)
[2019-07-30] MEDS: Gabapentin 100 MG CAP PO PRN (20:29)
[2019-07-31] MEDS: cloNIDine 0.1 MG TAB PO PRN (05:02)
[2019-07-31] MEDS: diphenhydrAMINE 25 MG CAP PO PRN ×2 (05:03→21:10)
[2019-07-31] MEDS ORDERED: diphenhydrAMINE 30 GM TUBE TOP PRN (08:46)
--- NOTE | 2019-07-31 08:50 | PDOC.HOSPP ---
- Subjective Encounter Date: 07/31/19 Encounter Time: 08:40 Subjective: Patient with some itching on back, no rash, benadryl not helping. No other complaints. Awaiting financial info to be approved at [facility] - Objective Vital Signs & Weight: Vital Signs (12 hours) Temp Pulse Resp BP Pulse Ox 07/31/19 07:43 98.2 F 83 18 178/96 H 98 07/31/19 04:41 99.1 F 80 16 185/98 H 95 07/31/19 00:10 98.8 F 75 18 158/95 H 95 Weight Admit Weight 158 lb 11.725 oz Weight 154 lb 12.232 oz Most Recent Monitor Data Heart Rate from ECG 106 NIBP 92/57 NIBP BP-Mean 68 Respiration from ECG 17 SpO2 88 I&O: 07/30/19 07/31/19 08/01/19 06:59 06:59 06:59 Intake Total 800 1340 Balance 800 1340 Result Diagrams: 07/25/19 09:52 07/25/19 09:52 Additional Labs: Accuchecks 07/31/19 07/30/19 07/30/19 05:12 20:12 16:35 POC Glucose 86 115 H 143 H 07/30/19 14:01 POC Glucose 76 Hospitalist ROS - Review of Systems Constitutional: denies: fever, chills Respiratory: denies: cough, shortness of breath Cardiovascular: denies: chest pain, palpitations Gastrointestinal: denies: nausea, vomiting, abdominal pain - Medication Medications: Active Medications Generic Name Dose Route Start Last Admin Trade Name Freq PRN Reason Stop Dose Admin Acetaminophen/Codeine Phosphate 1 tab 07/24/19 15:00 07/28/19 13:37 Tylenol #3 PO 1 tab Q6H PRN Administration Mild-Moderate Pain (1-5) Acetaminophen/Codeine Phosphate 2 tab 07/29/19 11:05 07/30/19 14:35 Tylenol #3 PO 2 tab Q6H PRN Administration Moderate to Severe Pain (6-10) Ascorbic Acid 500 mg 07/26/19 09:00 07/30/19 08:20 Vitamin C PO 500 mg DAILY ESME Administration Aspirin 325 mg 07/15/19 09:00 07/30/19 08:19 Aspirin PO 325 mg DAILY ESME Administration Atorvastatin Calcium 10 mg 07/14/19 21:00 07/30/19 20:15 Lipitor PO 10 mg HS ESME Administration Carvedilol 3.125 mg 07/30/19 21:00 07/30/19 20:15 Coreg PO 3.125 mg BID ESME Administration Clonidine 0.1 mg 07/20/19 06:24 07/31/19 05:02 Catapres PO 0.1 mg Q4H PRN Administration SBP > 160 use second Diphenhydramine HCl 25 mg 07/22/19 21:45 07/31/19 05:03 Benadryl PO 25 mg Q6H PRN Administration Itching & Insomnia Etravirine 200 mg 07/14/19 18:00 07/30/19 17:44 Intelence PO 200 mg BID-PC ESME Administration Famotidine 20 mg 07/22/19 09:00 07/30/19 08:19 Pepcid PO 20 mg DAILY ESME Administration Folic Acid 1 mg 07/15/19 09:00 07/30/19 08:19 Folvite PO 1 mg DAILY ESME Administration Gabapentin 100 mg 07/22/19 21:43 07/30/19 20:29 Neurontin PO 100 mg HS PRN Administration Pain Hydralazine HCl 10 mg 07/18/19 11:32 07/20/19 05:07 Apresoline SLOW IVP 10 mg Q4H PRN Administration SBP > 180 and HR < 70 Hydralazine HCl 10 mg 07/21/19 09:08 07/30/19 06:09 Apresoline PO 10 mg Q4H PRN Administration SBP GREATER THAN 160 Hydralazine HCl 50 mg 07/30/19 09:00 07/30/19 20:15 Apresoline PO 50 mg TID ESME Administration Vancomycin HCl 750 mg/ Sodium 250 mls @ 250 mls/hr 07/25/19 08:30 07/27/19 12 :55 Chloride IVPB 250 mls WILLCALL ESME Administration Pantoprazole Sodium 40 mg 07/15/19 09:00 07/30/19 08:17 Protonix PO 40 mg DAILY ESME Administration Polyethylene Glycol 17 gm 07/22/19 09:00 07/30/19 08:21 Miralax PO Not Given DAILY ESME Raltegravir 400 mg 07/14/19 21:00 07/30/19 20:15 Isentress PO 400 mg BID ESME Administration Senna/Docusate Sodium 2 tab 07/18/19 11:32 07/21/19 22:07 Senokot S PO 2 tab BIDPRN PRN Administration Constipation Sevelamer Carbonate 800 mg 07/14/19 12:00 07/30/19 17:44 Renvela PO 800 mg TID-WM ESME Administration Sodium Chloride 10 ml 07/15/19 21:00 07/30/19 20:17 Flush - Normal Saline IVF Not Given Q12HR ESME Sodium Chloride 10 ml 07/15/19 10:37 07/16/19 05:57 Flush - Normal Saline IVF 10 ml PRN PRN Administration Saline Flush Zidovudine 100 mg 07/14/19 14:00 07/31/19 05:02 Retrovir PO 100 mg Q8HR ESME Administration Zinc Sulfate 220 mg 07/26/19 09:00 07/30/19 08:20 Zinc Sulfate PO 220 mg DAILY ESME Administration Zolpidem Tartrate 5 mg 07/18/19 11:32 07/20/19 21:52 Ambien PO 5 mg HSPRN PRN Administration Insomnia - Exam General Appearance: NAD Eye: anicteric sclera ENT: normocephalic atraumatic, moist mucosa Heart: RRR, no murmur, no gallops Respiratory: CTAB, no wheezes, no rales Gastrointestinal: soft, non-tender, non-distended, normal bowel sounds Psychiatric: normal affect, normal behavior, A&O x 3 Hosp A/P (1) Acute metabolic encephalopathy Code(s): G93.41 - METABOLIC ENCEPHALOPATHY Status: Resolved (2) Sepsis associated hypotension Code(s): A41.9 - SEPSIS, UNSPECIFIED ORGANISM; I95.9 - HYPOTENSION, UNSPECIFIED Status: Resolved (3) Sepsis due to methicillin resistant Staphylococcus aureus (MRSA) Code(s): A41.02 - SEPSIS DUE TO METHICILLIN RESISTANT STAPHYLOCOCCUS AUREUS Status: Acute (4) HTN (hypertension) Code(s): I10 - ESSENTIAL (PRIMARY) HYPERTENSION Status: Chronic Qualifiers: Hypertension type: essential hypertension Qualified Code(s): I10 - Essential (primary) hypertension (5) NSTEMI (non-ST elevated myocardial infarction) Code(s): I21.4 - NON-ST ELEVATION (NSTEMI) MYOCARDIAL INFARCTION Status: Resolved (6) Esophageal cancer Status: Chronic Qualifiers: Malignant neoplasm of esophagus location: unspecified location Qualified Code(s): C15.9 - Malignant neoplasm of esophagus, unspecified (7) HIV (human immunodeficiency virus infection) Code(s): B20 - HUMAN IMMUNODEFICIENCY VIRUS [HIV] DISEASE Status: Chronic Qualifiers: HIV symptom status: unspecified Qualified Code(s): B20 - Human immunodeficiency virus [HIV] disease (8) Hepatitis C Code(s): B19.20 - UNSPECIFIED VIRAL HEPATITIS C WITHOUT HEPATIC COMA Status: Chronic Qualifiers: Viral hepatitis chronicity: chronic Hepatic coma status: without hepatic coma Qualified Code(s): B18.2 - Chronic viral hepatitis C (9) Chronic pain Code(s): G89.29 - OTHER CHRONIC PAIN Status: Chronic (10) ESRD (end stage renal disease) on dialysis Code(s): N18.6 - END STAGE RENAL DISEASE; Z99.2 - DEPENDENCE ON RENAL DIALYSIS Status: Chronic (11) Sacral decubitus ulcer Code(s): L89.159 - PRESSURE ULCER OF SACRAL REGION, UNSPECIFIED STAGE Status: Chronic Qualifiers: Pressure injury stage: stage 2 Qualified Code(s): L89.152 - Pressure ulcer of sacral region, stage 2 - Plan To [place] [facility], awaiting sister to provide them financial paperwork
[2019-07-31] MEDS: Sevelamer Carbonate 800 MG TAB PO SCH ×3 (09:05→16:02)
[2019-07-31] MEDS: hydrALAZINE 25 MG TAB PO SCH ×3 (09:05→19:46)
[2019-07-31] MEDS: Famotidine 20 MG TAB PO SCH (09:06)
[2019-07-31] MEDS: Folic Acid 1 MG TAB PO SCH (09:06)
[2019-07-31] MEDS: Aspirin 325 MG TAB PO SCH (09:06)
[2019-07-31] MEDS: Ascorbic Acid 500 mg Chewable Tablet PO SCH (09:06)
[2019-07-31] MEDS: Carvedilol 3.125 MG TAB PO SCH ×2 (09:06→19:45)
[2019-07-31] MEDS: Polyethylene Glycol 3350 17 GM Packet PO SCH (09:07)
[2019-07-31] MEDS: Raltegravir Potassium 400 MG TAB PO SCH ×2 (09:07→19:46)
[2019-07-31] MEDS: Zinc Sulfate 220 MG CAP PO SCH (09:07)
--- NOTE | 2019-07-31 11:30 | DIS ---
DATE OF ADMISSION: 07/13/2019 DATE OF DISCHARGE: 07/31/2019 PRIMARY CARE PHYSICIAN: [facility] [place]. REASON FOR ADMISSION: Altered mental status with sepsis and pneumonia. DISCHARGE DIAGNOSES: 1. Acute metabolic encephalopathy, resolved. 2. Sepsis associated hypotension, resolved. 3. Sepsis due to methicillin-resistant Staphylococcus aureus bacteremia. 4. Pneumonia. 5. Hypertension. 6. Non ST-elevation myocardial infarction. 7. Esophageal cancer, uncertain status of treatment at this time. 8. Human immunodeficiency virus. 9. Hepatitis C. 10. Chronic pain. 11. End-stage renal disease, on dialysis. 12. Sacral decubitus ulcer. 13. Left scapular and left clavicular fracture previous to admission. PROCEDURES: 1. CT of the brain without contrast showing no acute intracranial abnormalities. 2. CT of the chest, abdomen and pelvis with IV contrast showing comminuted fracture involving the medial left clavicle, comminuted fracture involving the left scapular body, and also anterior lateral right fourth through sixth rib fractures. 3. Bibasilar airspace consolidation, suspicious for pneumonia or aspiration. Marked cardiomegaly, pulmonary tree enlargement, and a prominent multinodular substernal goiter. 4. MediPort removal. CONSULTATIONS: 1. Cardiology, Dr. Lawrence. 2. Nephrology, Dr. Barrera. 3. Pulmonology, Dr. Solorio. 4. Infectious Disease, Dr. Morris. 5. General Surgery, Dr. Reyna. SUMMARY OF HOSPITAL COURSE: This is a 63-year-old male with a history of end-stage renal disease, on dialysis, also with HIV, also with esophageal cancer, in current stage of treatment he does have a MediPort and that he has not been using. He has finished all chemotherapy. The patient had been noted to be increasingly weak recently by family at home. He did have a mechanical fall at home, increasing weakness, increasing confusional state, was noted to be altered during dialysis, so he was sent to the emergency room. He was found to have pneumonia and sepsis. He had to be put on BiPAP for respiratory distress and was transferred to the ICU. Pulmonology, Cardiology, and Nephrology were consulted. The patient was noted to have a left clavicular and scapular as well some rib fractures associated with his fall, but nothing that was causing acute problems. The patient had a prolonged course in the hospital. He did eventually start to improve. He had eventually grew out 1/2 blood cultures positive for MRSA. At that time, patient had discussion with Dr. Morris and with Dr. Reyna determined that the since he was not using his MediPort, it might possibly be infected and that he wanted it removed. Dr. Morris did recommend an MRI for his back because he was having some back pain as well. However, the patient refused this. The patient eventually determined that he wanted to be discharged on hospice. His family is no longer able to take care of him at home, so he is being discharged [place] hosp[place] at [place] [facility], [facility]. The patient is being continued on vancomycin with his dialysis per sliding scale. Dr. Morris recommends at least 4 to 6 weeks of antibiotics. DISCHARGE MANAGEMENT: Discharged to [facility] with [facility]. Activity: As tolerated. Diet: Renal diet. Therapy: Occupational, Physical therapy and Wound Care. Followup: Follow up with Dr. Morris in 3 to 4 weeks and followup for continued dialysis. DISCHARGE MEDICATIONS: 1. Vancomycin sliding scale. 2. Florinef 0.1 mg p.o. daily. 3. Acetaminophen with Codeine as needed. 4. Albuterol as needed. 5. Vitamin C daily. 6. Artificial Tears as needed. 7. Aspirin 325 mg daily. 8. Carvedilol 3.125 mg daily. 9. Clonidine 0.1 mg as needed. 10. Diphenhydramine orally and cream as needed for itching. 11. Intelence 200 mg twice a day. 12. Folic acid 1 mg daily. 13. Protonix 40 mg daily. 14. Pravastatin 20 mg daily. 15. Isentress 400 mg twice a day. 16. Renvela 800 mg 3 times a day. 17. Zidovudine 100 mg every 8 hours. 18. Renaplex-D vitamin tablet daily. 19. Calcium lactate 650 mg daily. 20. Vitamin B12 1000 mcg daily. 21. Epogen 97308 units as needed with dialysis. 22. Flonase 2 sprays in each nostril daily. 23. Gabapentin 300 mg at night. 24. Hydralazine 25 mg twice a day. 25. Nortriptyline 25 mg at night. 26. Spiriva daily. Arranging the details of this discharge took 35 minutes. Job ID: [id number]
[2019-07-31] MEDS: Acetaminophen/Codeine 30-300mg Tablet PO PRN ×2 (16:02→21:11)
[2019-07-31] MEDS: Atorvastatin Calcium 10 MG TAB PO SCH (19:45)
--- NOTE | 2019-07-31 20:46 | PRG ---
DATE OF SERVICE: 07/31/2019 SUBJECTIVE: The patient is seen and examined, noted with the following vital signs. OBJECTIVE: VITAL SIGNS: Afebrile, temperature 99, pulse 94, respiratory rate of 20, O2 saturations are 96%, blood pressure 174/96. HEENT: Unremarkable. CARDIOVASCULAR: First and second heart sounds were heard. RESPIRATORY: Clear to auscultation. DIGESTIVE: Revealed a benign abdomen. Positive bowel sounds. EXTREMITIES: No peripheral edema. SKIN: No new gross rash. LYMPHATICS: No peripheral lymphadenopathy. IMPRESSION: 1. End-stage renal disease, on hemodialysis. 2. Hypertension, improving. 3. Failure to thrive. PLAN: Continue current renal supportive measures with the current dialysis schedule. The patient likely to be discharged tomorrow. Therefore, we will undergo dialysis prior to discharge. Job ID: [id number]
[2019-07-31] MEDS: Gabapentin 100 MG CAP PO PRN (21:10)
[2019-08-01] MEDS: cloNIDine 0.1 MG TAB PO PRN (01:12)
[2019-08-01] MEDS: Folic Acid 1 MG TAB PO SCH (08:03)
[2019-08-01] MEDS: hydrALAZINE 25 MG TAB PO SCH ×3 (08:03→21:17)
[2019-08-01] MEDS: Carvedilol 3.125 MG TAB PO SCH ×2 (08:03→21:18)
[2019-08-01] MEDS: Famotidine 20 MG TAB PO SCH (08:03)
[2019-08-01] MEDS: Sevelamer Carbonate 800 MG TAB PO SCH ×3 (08:03→15:43)
[2019-08-01] MEDS: Aspirin 325 MG TAB PO SCH (08:03)
[2019-08-01] MEDS: Ascorbic Acid 500 mg Chewable Tablet PO SCH (08:03)
[2019-08-01] MEDS: Zinc Sulfate 220 MG CAP PO SCH (08:06)
[2019-08-01] MEDS: Acetaminophen/Codeine 30-300mg Tablet PO PRN ×2 (08:06→15:43)
[2019-08-01] MEDS: Raltegravir Potassium 400 MG TAB PO SCH ×2 (08:07→21:17)
[2019-08-01] MEDS: Polyethylene Glycol 3350 17 GM Packet PO SCH (08:08)
[2019-08-01 08:21] LABS: Vancomycin, Random 13.9 ug/mL (See Comment)
[2019-08-01 10:30] LABS: Hemoglobin 10.4 g/dL (14.0-18.0); Mean Corpuscular HGB CONC 31.9 g/dL (32.0-36.0); Mean Corpuscular Hemoglobin 33.7 pg (27.0-31.0); Mean Platelet Volume 8.7 fL (7.4-10.4); Platelet Count 156 thou/uL (130-400); Red Blood Cell (RBC) Count 3.08 mill/uL (4.70-6.10)
[2019-08-01 10:43] LABS: Albumin 2.9 g/dL (3.4-4.8); Anion Gap 17 mmol/L (10-20); BUN (Urea Nitrogen) 49 mg/dL (8.4-25.7); Calc. Creatinine Clearance 19 mL/min (70-130); Calcium 9.3 mg/dL (7.8-10.44); Carbon Dioxide 26 mmol/L (23-31); Chloride 99 mmol/L (98-107); Estimated GFR-MDRD 19; Glucose 106 mg/dL (80-115); Phosphorus 6.4 mg/dL (2.3-4.7); Sodium 134 mmol/L (136-145)
[2019-08-01 10:47] LABS: Potassium 7.6 mmol/L (3.5-5.1)
--- NOTE | 2019-08-01 16:20 | PDOC.HOSPP ---
- Subjective Encounter Date: 08/01/19 Encounter Time: 15:00 Subjective: Patient without complaint. No financial approval for SNF yet. - Objective Vital Signs & Weight: Vital Signs (12 hours) Temp Pulse Resp BP Pulse Ox 08/01/19 15:44 75 08/01/19 08:19 98.4 F 75 18 167/89 H 93 L 08/01/19 08:03 77 Weight Admit Weight 158 lb 11.725 oz Weight 154 lb 12.232 oz Most Recent Monitor Data Heart Rate from ECG 106 NIBP 92/57 NIBP BP-Mean 68 Respiration from ECG 17 SpO2 88 I&O: 07/31/19 08/01/19 08/02/19 06:59 06:59 06:59 Intake Total 1340 Balance 1340 Result Diagrams: 08/01/19 08:50 08/01/19 08:50 Hospitalist ROS - Review of Systems Constitutional: denies: fever, chills Respiratory: denies: cough, shortness of breath Cardiovascular: denies: chest pain, palpitations, orthopnea Gastrointestinal: denies: nausea, vomiting, abdominal pain Neurological: denies: weakness - Medication Medications: Active Medications Generic Name Dose Route Start Last Admin Trade Name Freq PRN Reason Stop Dose Admin Acetaminophen/Codeine Phosphate 1 tab 07/24/19 15:00 08/01/19 15:43 Tylenol #3 PO 1 tab Q6H PRN Administration Mild-Moderate Pain (1-5) Acetaminophen/Codeine Phosphate 2 tab 07/29/19 11:05 08/01/19 08:06 Tylenol #3 PO 2 tab Q6H PRN Administration Moderate to Severe Pain (6-10) Ascorbic Acid 500 mg 07/26/19 09:00 08/01/19 08:03 Vitamin C PO 500 mg DAILY ESME Administration Aspirin 325 mg 07/15/19 09:00 08/01/19 08:03 Aspirin PO 325 mg DAILY ESME Administration Atorvastatin Calcium 10 mg 07/14/19 21:00 07/31/19 19:45 Lipitor PO 10 mg HS ESME Administration Carvedilol 3.125 mg 07/30/19 21:00 08/01/19 08:03 Coreg PO 3.125 mg BID ESME Administration Clonidine 0.1 mg 07/20/19 06:24 08/01/19 01:12 Catapres PO 0.1 mg Q4H PRN Administration SBP > 160 use second Diphenhydramine HCl 25 mg 07/22/19 21:45 07/31/19 21:10 Benadryl PO 25 mg Q6H PRN Administration Itching & Insomnia Etravirine 200 mg 07/14/19 18:00 08/01/19 08:07 Intelence PO 200 mg BID-PC ESME Administration Famotidine 20 mg 07/22/19 09:00 08/01/19 08:03 Pepcid PO 20 mg DAILY ESME Administration Folic Acid 1 mg 07/15/19 09:00 08/01/19 08:03 Folvite PO 1 mg DAILY ESME Administration Gabapentin 100 mg 07/22/19 21:43 07/31/19 21:10 Neurontin PO 100 mg HS PRN Administration Pain Hydralazine HCl 10 mg 07/18/19 11:32 07/20/19 05:07 Apresoline SLOW IVP 10 mg Q4H PRN Administration SBP > 180 and HR < 70 Hydralazine HCl 10 mg 07/21/19 09:08 07/30/19 06:09 Apresoline PO 10 mg Q4H PRN Administration SBP GREATER THAN 160 Hydralazine HCl 50 mg 07/30/19 09:00 08/01/19 15:44 Apresoline PO 50 mg TID ESME Administration Vancomycin HCl 750 mg/ Sodium 250 mls @ 250 mls/hr 07/25/19 08:30 07/27/19 12 :55 Chloride IVPB 250 mls WILLCALL ESME Administration Pantoprazole Sodium 40 mg 07/15/19 09:00 08/01/19 08:03 Protonix PO 40 mg DAILY ESME Administration Polyethylene Glycol 17 gm 07/22/19 09:00 08/01/19 08:08 Miralax PO Not Given DAILY ESME Raltegravir 400 mg 07/14/19 21:00 08/01/19 08:07 Isentress PO 400 mg BID ESME Administration Senna/Docusate Sodium 2 tab 07/18/19 11:32 07/21/19 22:07 Senokot S PO 2 tab BIDPRN PRN Administration Constipation Sevelamer Carbonate 800 mg 07/14/19 12:00 08/01/19 15:43 Renvela PO 800 mg TID-WM ESME Administration Sodium Chloride 10 ml 07/15/19 21:00 08/01/19 08:08 Flush - Normal Saline IVF Not Given Q12HR ESME Sodium Chloride 10 ml 07/15/19 10:37 07/16/19 05:57 Flush - Normal Saline IVF 10 ml PRN PRN Administration Saline Flush Zidovudine 100 mg 07/14/19 14:00 08/01/19 15:42 Retrovir PO 100 mg Q8HR ESME Administration Zinc Sulfate 220 mg 07/26/19 09:00 08/01/19 08:06 Zinc Sulfate PO 220 mg DAILY ESME Administration Zolpidem Tartrate 5 mg 07/18/19 11:32 07/20/19 21:52 Ambien PO 5 mg HSPRN PRN Administration Insomnia - Exam General Appearance: NAD Eye: anicteric sclera ENT: moist mucosa Heart: RRR, no murmur, no gallops, no rubs Respiratory: CTAB, no wheezes, no rales, no ronchi Gastrointestinal: soft, non-tender, non-distended, normal bowel sounds Psychiatric: normal affect, normal behavior, A&O x 3 Hosp A/P (1) Acute metabolic encephalopathy Code(s): G93.41 - METABOLIC ENCEPHALOPATHY Status: Resolved (2) Sepsis associated hypotension Code(s): A41.9 - SEPSIS, UNSPECIFIED ORGANISM; I95.9 - HYPOTENSION, UNSPECIFIED Status: Resolved (3) Sepsis due to methicillin resistant Staphylococcus aureus (MRSA) Code(s): A41.02 - SEPSIS DUE TO METHICILLIN RESISTANT STAPHYLOCOCCUS AUREUS Status: Acute (4) HTN (hypertension) Code(s): I10 - ESSENTIAL (PRIMARY) HYPERTENSION Status: Chronic Qualifiers: Hypertension type: essential hypertension Qualified Code(s): I10 - Essential (primary) hypertension (5) NSTEMI (non-ST elevated myocardial infarction) Code(s): I21.4 - NON-ST ELEVATION (NSTEMI) MYOCARDIAL INFARCTION Status: Resolved (6) Esophageal cancer Status: Chronic Qualifiers: Malignant neoplasm of esophagus location: unspecified location Qualified Code(s): C15.9 - Malignant neoplasm of esophagus, unspecified (7) HIV (human immunodeficiency virus infection) Code(s): B20 - HUMAN IMMUNODEFICIENCY VIRUS [HIV] DISEASE Status: Chronic Qualifiers: HIV symptom status: unspecified Qualified Code(s): B20 - Human immunodeficiency virus [HIV] disease (8) Hepatitis C Code(s): B19.20 - UNSPECIFIED VIRAL HEPATITIS C WITHOUT HEPATIC COMA Status: Chronic Qualifiers: Viral hepatitis chronicity: chronic Hepatic coma status: without hepatic coma Qualified Code(s): B18.2 - Chronic viral hepatitis C (9) Chronic pain Code(s): G89.29 - OTHER CHRONIC PAIN Status: Chronic (10) ESRD (end stage renal disease) on dialysis Code(s): N18.6 - END STAGE RENAL DISEASE; Z99.2 - DEPENDENCE ON RENAL DIALYSIS Status: Chronic (11) Sacral decubitus ulcer Code(s): L89.159 - PRESSURE ULCER OF SACRAL REGION, UNSPECIFIED STAGE Status: Chronic Qualifiers: Pressure injury stage: stage 2 Qualified Code(s): L89.152 - Pressure ulcer of sacral region, stage 2 - Plan To [place] [facility] once financial approval, but having trouble with the financial issues so may be awhile per case management
[2019-08-01] MEDS: Atorvastatin Calcium 10 MG TAB PO SCH (21:17)
[2019-08-01] MEDS: diphenhydrAMINE 25 MG CAP PO PRN (21:18)
[2019-08-01] MEDS: Gabapentin 100 MG CAP PO PRN (21:18)
[2019-08-02] MEDS: Acetaminophen/Codeine 30-300mg Tablet PO PRN ×3 (00:57→19:52)
[2019-08-02] MEDS: hydrALAZINE 25 MG TAB PO SCH ×3 (08:29→19:48)
[2019-08-02] MEDS: Sevelamer Carbonate 800 MG TAB PO SCH ×3 (08:29→17:34)
[2019-08-02] MEDS: Ascorbic Acid 500 mg Chewable Tablet PO SCH (08:29)
[2019-08-02] MEDS: Famotidine 20 MG TAB PO SCH (08:29)
[2019-08-02] MEDS: Aspirin 325 MG TAB PO SCH (08:29)
[2019-08-02] MEDS: Folic Acid 1 MG TAB PO SCH (08:30)
[2019-08-02] MEDS: Carvedilol 3.125 MG TAB PO SCH ×2 (08:30→19:49)
[2019-08-02] MEDS: Polyethylene Glycol 3350 17 GM Packet PO SCH (08:31)
[2019-08-02] MEDS: Raltegravir Potassium 400 MG TAB PO SCH ×2 (08:31→19:48)
[2019-08-02] MEDS: Zinc Sulfate 220 MG CAP PO SCH (08:31)
--- NOTE | 2019-08-02 09:03 | PRG ---
DATE OF SERVICE: 08/01/2019 SUBJECTIVE: The patient noted with the following vital signs. OBJECTIVE: VITAL SIGNS: Afebrile, blood pressure 178/92, respiratory rate of 16, pulse of 77. HEENT: Unremarkable. CARDIOVASCULAR: First and second heart sounds were heard. RESPIRATORY: Clear to auscultation. DIGESTIVE SYSTEM: Revealed a benign abdomen. EXTREMITIES: No peripheral edema. SKIN: No new gross rash. LYMPHATICS: No peripheral lymphadenopathy. LABORATORY DATA: Significant for potassium of 7.6. IMPRESSION: 1. End-stage renal disease, due for dialysis. 2. Severe hyperkalemia. 3. Failure to thrive. PLAN: 1. The patient to be dialyzed with the low potassium, 2K bath. 2. The patient to still remain on the current schedule of Monday, and Monday. 3. Further management to be dependent on the clinical course. 4. On the 02 of August, Dr. Rangel will be covering me. Job ID: [id number]
--- NOTE | 2019-08-02 10:24 | PDOC.HOSPP ---
- Subjective Encounter Date: 08/02/19 Encounter Time: 10:21 Subjective: 63 y/o male with multiple co-morbidities admitted with acute mental status change and hypotension. Clinically improved. awaiting placement. No new problem. - Objective Vital Signs & Weight: Vital Signs (12 hours) Temp Pulse Resp BP BP Pulse Ox 08/02/19 08:29 90 176/106 H 08/02/19 08:00 98.4 F 86 18 176/106 H 96 Weight Admit Weight 158 lb 11.725 oz Weight 154 lb 12.232 oz Most Recent Monitor Data Heart Rate from ECG 106 NIBP 92/57 NIBP BP-Mean 68 Respiration from ECG 17 SpO2 88 I&O: 08/01/19 08/02/19 08/03/19 06:59 06:59 06:59 Intake Total 750 Balance 750 Result Diagrams: 08/01/19 08:50 08/01/19 08:50 Hospitalist ROS - Medication Medications: Active Medications Generic Name Dose Route Start Last Admin Trade Name Freq PRN Reason Stop Dose Admin Acetaminophen/Codeine Phosphate 1 tab 07/24/19 15:00 08/01/19 15:43 Tylenol #3 PO 1 tab Q6H PRN Administration Mild-Moderate Pain (1-5) Acetaminophen/Codeine Phosphate 2 tab 07/29/19 11:05 08/02/19 08:40 Tylenol #3 PO 2 tab Q6H PRN Administration Moderate to Severe Pain (6-10) Ascorbic Acid 500 mg 07/26/19 09:00 08/02/19 08:29 Vitamin C PO 500 mg DAILY ESME Administration Aspirin 325 mg 07/15/19 09:00 08/02/19 08:29 Aspirin PO 325 mg DAILY ESME Administration Atorvastatin Calcium 10 mg 07/14/19 21:00 08/01/19 21:17 Lipitor PO 10 mg HS ESME Administration Carvedilol 3.125 mg 07/30/19 21:00 08/02/19 08:30 Coreg PO 3.125 mg BID ESME Administration Clonidine 0.1 mg 07/20/19 06:24 08/01/19 01:12 Catapres PO 0.1 mg Q4H PRN Administration SBP > 160 use second Diphenhydramine HCl 25 mg 07/22/19 21:45 08/01/19 21:18 Benadryl PO 25 mg Q6H PRN Administration Itching & Insomnia Etravirine 200 mg 07/14/19 18:00 08/02/19 08:31 Intelence PO 200 mg BID-PC ESME Administration Famotidine 20 mg 07/22/19 09:00 08/02/19 08:29 Pepcid PO 20 mg DAILY ESME Administration Folic Acid 1 mg 07/15/19 09:00 08/02/19 08:30 Folvite PO 1 mg DAILY ESME Administration Gabapentin 100 mg 07/22/19 21:43 08/01/19 21:18 Neurontin PO 100 mg HS PRN Administration Pain Hydralazine HCl 10 mg 07/18/19 11:32 07/20/19 05:07 Apresoline SLOW IVP 10 mg Q4H PRN Administration SBP > 180 and HR < 70 Hydralazine HCl 10 mg 07/21/19 09:08 07/30/19 06:09 Apresoline PO 10 mg Q4H PRN Administration SBP GREATER THAN 160 Hydralazine HCl 50 mg 07/30/19 09:00 08/02/19 08:29 Apresoline PO 50 mg TID ESME Administration Vancomycin HCl 750 mg/ Sodium 250 mls @ 250 mls/hr 07/25/19 08:30 07/27/19 12 :55 Chloride IVPB 250 mls WILLCALL ESME Administration Pantoprazole Sodium 40 mg 07/15/19 09:00 08/02/19 08:29 Protonix PO 40 mg DAILY ESME Administration Polyethylene Glycol 17 gm 07/22/19 09:00 08/02/19 08:31 Miralax PO Not Given DAILY ESME Raltegravir 400 mg 07/14/19 21:00 08/02/19 08:31 Isentress PO 400 mg BID ESME Administration Senna/Docusate Sodium 2 tab 07/18/19 11:32 07/21/19 22:07 Senokot S PO 2 tab BIDPRN PRN Administration Constipation Sevelamer Carbonate 800 mg 07/14/19 12:00 08/02/19 08:29 Renvela PO 800 mg TID-WM ESME Administration Sodium Chloride 10 ml 07/15/19 21:00 08/02/19 08:31 Flush - Normal Saline IVF Not Given Q12HR ESME Sodium Chloride 10 ml 07/15/19 10:37 07/16/19 05:57 Flush - Normal Saline IVF 10 ml PRN PRN Administration Saline Flush Zidovudine 100 mg 07/14/19 14:00 08/02/19 06:05 Retrovir PO 100 mg Q8HR ESME Administration Zinc Sulfate 220 mg 07/26/19 09:00 08/02/19 08:31 Zinc Sulfate PO 220 mg DAILY ESME Administration Zolpidem Tartrate 5 mg 07/18/19 11:32 07/20/19 21:52 Ambien PO 5 mg HSPRN PRN Administration Insomnia - Exam General Appearance: awake alert ENT: normocephalic atraumatic Neck: supple Heart: murmur present Respiratory - other findings: fair air entry with few bibasal crackles posteriorly Gastrointestinal: soft, non-tender, non-distended, normal bowel sounds Extremities - other findings: Left AKA. Left forearm AVF with aneurysm and global edema of leftupper limb Neurological: cranial nerve grossly intact, no focal deficits Psychiatric: A&O x 3 Hosp A/P (1) Failure to thrive in adult Status: Acute (2) Acute metabolic encephalopathy Code(s): G93.41 - METABOLIC ENCEPHALOPATHY Status: Resolved (3) Sepsis associated hypotension Code(s): A41.9 - SEPSIS, UNSPECIFIED ORGANISM; I95.9 - HYPOTENSION, UNSPECIFIED Status: Resolved (4) Acute on chronic respiratory failure with hypoxemia Code(s): J96.21 - ACUTE AND CHRONIC RESPIRATORY FAILURE WITH HYPOXIA Status: Acute (5) Atypical chest pain Code(s): R07.89 - OTHER CHEST PAIN Status: Acute (6) Fluid overload Code(s): E87.70 - FLUID OVERLOAD, UNSPECIFIED Status: Acute (7) Generalized weakness Code(s): R53.1 - WEAKNESS Status: Acute (8) Anemia in chronic kidney disease Code(s): N18.9 - CHRONIC KIDNEY DISEASE, UNSPECIFIED; D63.1 - ANEMIA IN CHRONIC KIDNEY DISEASE Status: Chronic Qualifiers: Chronic kidney disease stage: on chronic dialysis Qualified Code(s): N18.6 - End stage renal disease; D63.1 - Anemia in chronic kidney disease; Z99.2 - Dependence on renal dialysis (9) HIV (human immunodeficiency virus infection) Code(s): B20 - HUMAN IMMUNODEFICIENCY VIRUS [HIV] DISEASE Status: Chronic Qualifiers: HIV symptom status: unspecified Qualified Code(s): B20 - Human immunodeficiency virus [HIV] disease (10) HTN (hypertension) Code(s): I10 - ESSENTIAL (PRIMARY) HYPERTENSION Status: Chronic Qualifiers: Hypertension type: essential hypertension Qualified Code(s): I10 - Essential (primary) hypertension (11) Moderate protein malnutrition Code(s): E44.0 - MODERATE PROTEIN-CALORIE MALNUTRITION Status: Chronic - Plan Continue care. Awaiting placement. for discharge once placement is concluded. continue HD as per Nephrology.
[2019-08-02] MEDS: Atorvastatin Calcium 10 MG TAB PO SCH (19:49)
[2019-08-02] MEDS: Gabapentin 100 MG CAP PO PRN (19:49)
[2019-08-02] MEDS: diphenhydrAMINE 25 MG CAP PO PRN (19:51)
[2019-08-02] MEDS: cloNIDine 0.1 MG TAB PO PRN (21:41)
[2019-08-03] MEDS ORDERED: NIFEdipine XL 30 MG TAB PO SCH (06:30)
[2019-08-03 07:09] LABS: Albumin 2.8 g/dL (3.4-4.8); Anion Gap 16 mmol/L (10-20); BUN (Urea Nitrogen) 47 mg/dL (8.4-25.7); Calc. Creatinine Clearance 21 mL/min (70-130); Calcium 8.9 mg/dL (7.8-10.44); Carbon Dioxide 28 mmol/L (23-31); Chloride 98 mmol/L (98-107); Estimated GFR-MDRD 21; Glucose 77 mg/dL (80-115); Phosphorus 6.8 mg/dL (2.3-4.7); Potassium 6.4 mmol/L (3.5-5.1); Sodium 136 mmol/L (136-145)
[2019-08-03] MEDS: Polyethylene Glycol 3350 17 GM Packet PO SCH (07:58)
[2019-08-03] MEDS: Aspirin 325 MG TAB PO SCH (07:59)
[2019-08-03] MEDS: Ascorbic Acid 500 mg Chewable Tablet PO SCH (07:59)
[2019-08-03] MEDS: hydrALAZINE 25 MG TAB PO SCH ×2 (07:59→14:10)
[2019-08-03] MEDS: Sevelamer Carbonate 800 MG TAB PO SCH ×2 (07:59→14:10)
[2019-08-03] MEDS: Famotidine 20 MG TAB PO SCH (07:59)
[2019-08-03] MEDS: Folic Acid 1 MG TAB PO SCH (08:00)
[2019-08-03] MEDS: Carvedilol 3.125 MG TAB PO SCH (08:00)
[2019-08-03] MEDS: Raltegravir Potassium 400 MG TAB PO SCH (08:01)
[2019-08-03] MEDS: Zinc Sulfate 220 MG CAP PO SCH (08:01)
[2019-08-03 08:25] LABS: Vancomycin, Random 12.9 ug/mL (See Comment)
[2019-08-03] MEDS: diphenhydrAMINE 25 MG CAP PO PRN (08:48)
[2019-08-03 09:04] VITALS: TEMP 98.2
[2019-08-03] MEDS: Vancomycin HCl 750 MG in Sodium Chloride 0.9% 250 ML 250 ML IVPB SCH (11:16)
[2019-08-03] MEDS: Acetaminophen/Codeine 30-300mg Tablet PO PRN (12:26)
--- NOTE | 2019-08-03 13:46 | PDOC.HOSPP ---
- Subjective Encounter Date: 08/03/19 Encounter Time: 11:45 Subjective: is getting HD, awake and watching tv no sob or palp feels better - Objective Vital Signs & Weight: Vital Signs (12 hours) Temp Pulse Resp BP BP Pulse Ox 08/03/19 09:03 98.2 F 72 20 146/86 H 95 08/03/19 08:00 95 08/03/19 07:59 72 146/86 H 08/03/19 07:22 72 146/86 H Weight Admit Weight 158 lb 11.725 oz Weight 154 lb 12.232 oz Most Recent Monitor Data Heart Rate from ECG 106 NIBP 92/57 NIBP BP-Mean 68 Respiration from ECG 17 SpO2 88 I&O: 08/02/19 08/03/19 08/04/19 06:59 06:59 06:59 Intake Total 750 1200 Balance 750 1200 Result Diagrams: 08/01/19 08:50 08/03/19 06:39 Hospitalist ROS - Medication Medications: Active Medications Generic Name Dose Route Start Last Admin Trade Name Freq PRN Reason Stop Dose Admin Acetaminophen/Codeine Phosphate 1 tab 07/24/19 15:00 08/01/19 15:43 Tylenol #3 PO 1 tab Q6H PRN Administration Mild-Moderate Pain (1-5) Acetaminophen/Codeine Phosphate 2 tab 07/29/19 11:05 08/03/19 12:26 Tylenol #3 PO 2 tab Q6H PRN Administration Moderate to Severe Pain (6-10) Ascorbic Acid 500 mg 07/26/19 09:00 08/03/19 07:59 Vitamin C PO 500 mg DAILY ESME Administration Aspirin 325 mg 07/15/19 09:00 08/03/19 07:59 Aspirin PO 325 mg DAILY ESME Administration Atorvastatin Calcium 10 mg 07/14/19 21:00 08/02/19 19:49 Lipitor PO 10 mg HS ESME Administration Carvedilol 3.125 mg 07/30/19 21:00 08/03/19 08:00 Coreg PO 3.125 mg BID ESME Administration Clonidine 0.1 mg 07/20/19 06:24 08/02/19 21:41 Catapres PO 0.1 mg Q4H PRN Administration SBP > 160 use second Diphenhydramine HCl 25 mg 07/22/19 21:45 08/03/19 08:48 Benadryl PO 25 mg Q6H PRN Administration Itching & Insomnia Etravirine 200 mg 07/14/19 18:00 08/03/19 08:00 Intelence PO 200 mg BID-PC ESME Administration Famotidine 20 mg 07/22/19 09:00 08/03/19 07:59 Pepcid PO 20 mg DAILY ESME Administration Folic Acid 1 mg 07/15/19 09:00 08/03/19 08:00 Folvite PO 1 mg DAILY ESME Administration Gabapentin 100 mg 07/22/19 21:43 08/02/19 19:49 Neurontin PO 100 mg HS PRN Administration Pain Hydralazine HCl 10 mg 07/18/19 11:32 07/20/19 05:07 Apresoline SLOW IVP 10 mg Q4H PRN Administration SBP > 180 and HR < 70 Hydralazine HCl 10 mg 07/21/19 09:08 07/30/19 06:09 Apresoline PO 10 mg Q4H PRN Administration SBP GREATER THAN 160 Hydralazine HCl 50 mg 07/30/19 09:00 08/03/19 07:59 Apresoline PO 50 mg TID ESME Administration Vancomycin HCl 750 mg/ Sodium 250 mls @ 250 mls/hr 07/25/19 08:30 08/03/19 11 :16 Chloride IVPB 250 mls WILLCALL ESME Administration Pantoprazole Sodium 40 mg 07/15/19 09:00 08/03/19 07:58 Protonix PO 40 mg DAILY ESME Administration Polyethylene Glycol 17 gm 07/22/19 09:00 08/03/19 07:58 Miralax PO 17 gm DAILY ESME Administration Raltegravir 400 mg 07/14/19 21:00 08/03/19 08:01 Isentress PO 400 mg BID ESME Administration Senna/Docusate Sodium 2 tab 07/18/19 11:32 07/21/19 22:07 Senokot S PO 2 tab BIDPRN PRN Administration Constipation Sevelamer Carbonate 800 mg 07/14/19 12:00 08/03/19 07:59 Renvela PO 800 mg TID-WM ESME Administration Sodium Chloride 10 ml 07/15/19 21:00 08/03/19 08:01 Flush - Normal Saline IVF Not Given Q12HR ESME Sodium Chloride 10 ml 07/15/19 10:37 07/16/19 05:57 Flush - Normal Saline IVF 10 ml PRN PRN Administration Saline Flush Zidovudine 100 mg 07/14/19 14:00 08/03/19 05:24 Retrovir PO 100 mg Q8HR ESME Administration Zinc Sulfate 220 mg 07/26/19 09:00 08/03/19 08:01 Zinc Sulfate PO 220 mg DAILY ESME Administration Zolpidem Tartrate 5 mg 07/18/19 11:32 07/20/19 21:52 Ambien PO 5 mg HSPRN PRN Administration Insomnia - Exam General Appearance: NAD, awake alert Eye: PERRL, anicteric sclera ENT: no oropharyngeal lesions, moist mucosa Neck: supple, no JVD Heart: RRR, no murmur Respiratory: no wheezes, no rales Gastrointestinal: soft, non-tender, non-distended, normal bowel sounds Extremities: no edema Extremities - other findings: left aka Neurological: cranial nerve grossly intact, no focal deficits Psychiatric: normal affect, A&O x 3 Hosp A/P (1) Failure to thrive in adult Status: Acute (2) Sepsis due to methicillin resistant Staphylococcus aureus (MRSA) Code(s): A41.02 - SEPSIS DUE TO METHICILLIN RESISTANT STAPHYLOCOCCUS AUREUS Status: Acute (3) Esophageal cancer Status: Chronic Qualifiers: Malignant neoplasm of esophagus location: unspecified location Qualified Code(s): C15.9 - Malignant neoplasm of esophagus, unspecified (4) Hepatitis C Code(s): B19.20 - UNSPECIFIED VIRAL HEPATITIS C WITHOUT HEPATIC COMA Status: Chronic Qualifiers: Viral hepatitis chronicity: chronic Hepatic coma status: without hepatic coma Qualified Code(s): B18.2 - Chronic viral hepatitis C (5) Acute metabolic encephalopathy Code(s): G93.41 - METABOLIC ENCEPHALOPATHY Status: Resolved (6) Fluid overload Code(s): E87.70 - FLUID OVERLOAD, UNSPECIFIED Status: Resolved (7) Generalized weakness Code(s): R53.1 - WEAKNESS Status: Acute (8) Anemia in chronic kidney disease Code(s): N18.9 - CHRONIC KIDNEY DISEASE, UNSPECIFIED; D63.1 - ANEMIA IN CHRONIC KIDNEY DISEASE Status: Chronic Qualifiers: Chronic kidney disease stage: on chronic dialysis Qualified Code(s): N18.6 - End stage renal disease; D63.1 - Anemia in chronic kidney disease; Z99.2 - Dependence on renal dialysis (9) DM (diabetes mellitus) Code(s): E11.9 - TYPE 2 DIABETES MELLITUS WITHOUT COMPLICATIONS Status: Chronic Qualifiers: Diabetes mellitus type: type 2 Diabetes mellitus jail insulin use: without bed bug exterminator use Diabetes mellitus complication status: with kidney complications Diabetes mellitus complication detail: with chronic kidney disease Chronic kidney disease stage: on chronic dialysis Qualified Code(s) : E11.22 - Type 2 diabetes mellitus with diabetic chronic kidney disease; N18.6 - End stage renal disease; Z99.2 - Dependence on renal dialysis (10) ESRD (end stage renal disease) on dialysis Code(s): N18.6 - END STAGE RENAL DISEASE; Z99.2 - DEPENDENCE ON RENAL DIALYSIS Status: Chronic (11) HIV (human immunodeficiency virus infection) Code(s): B20 - HUMAN IMMUNODEFICIENCY VIRUS [HIV] DISEASE Status: Chronic Qualifiers: HIV symptom status: unspecified Qualified Code(s): B20 - Human immunodeficiency virus [HIV] disease (12) HTN (hypertension) Code(s): I10 - ESSENTIAL (PRIMARY) HYPERTENSION Status: Chronic Qualifiers: Hypertension type: essential hypertension Qualified Code(s): I10 - Essential (primary) hypertension (13) Moderate protein malnutrition Code(s): E44.0 - MODERATE PROTEIN-CALORIE MALNUTRITION Status: Chronic (14) IVONNE on CPAP Code(s): G47.33 - OBSTRUCTIVE SLEEP APNEA (ADULT) (PEDIATRIC); Z99.89 - DEPENDENCE ON OTHER ENABLING MACHINES AND DEVICES Status: Chronic (15) Physical deconditioning Code(s): R53.81 - OTHER MALAISE Status: Chronic - Plan hemostable labs drawn this am was before HD to continue vanc with HD for 3 weeks continue Raltegravir, etravirine, zidovudine, coreg, hydralazine, asp, lipitor may dc pt to [facility] today
[2019-08-03 14:14] VITALS: BP 131/74
--- NOTE | 2019-08-03 14:35 | EKG ---
Test Reason : Blood Pressure : / mmHG Vent. Rate : 097 BPM Atrial Rate : 097 BPM P-R Int : 182 ms QRS Dur : 096 ms QT Int : 384 ms P-R-T Axes : 026 112 -09 degrees QTc Int : 487 ms Sinus rhythm with marked sinus arrhythmia Left posterior fascicular block Inferior infarct , age undetermined Abnormal ECG Old T wave inversions III, aVF, V1-V3 compared to 06-09-2019 Confirmed by KATHY JEFF DO ([id number]), purchase request editor CHELSEA NOWAK ([id number]) on 08/03/2019 2:35:03 PM Referred By: Confirmed By:KATHY JEFF DO
--- NOTE | 2019-08-03 16:58 | DIS ---
DATE OF ADMISSION: 07/13/2019 DATE OF DISCHARGE: 08/03/2019 DISCHARGE DISPOSITION: [facility]. PRIMARY DISCHARGE DIAGNOSES: MRSA bacteremia, status post port removed; failure to thrive; sepsis; metabolic encephalopathy, resolved; acute on chronic respiratory failure, resolved; volume overload; chronic anemia; HIV status; hypertension; protein malnutrition; end stage renal disease, on hemodialysis; history of esophageal carcinoma, in remission; diabetes mellitus, type 2. PROCEDURES DONE DURING HOSPITALIZATION: Please note, the patient was hospitalized for nearly 21 days. Please refer to [facility] for detailed report. CT brain done on the day of admission showed no acute intracranial abnormality. Partial mastoid effusions were seen bilaterally CAT scan done on admission showed comminuted fracture involving medial left clavicle, comminuted fracture involving left scapular body, anterolateral right 4th through 6th rib fractures, bibasilar airspace consolidation suspicious for pneumonia or aspiration, cardiomegaly, pulmonary vascular engorgement, diffuse anasarca, multinodular substernal goiter, central line from right common femoral vein culture grew MRSA. Right arm venous blood culture was negative. Discharge H and H 10 and 32, platelet count 156, white count of 4 on the . BUN 47, creatinine 3.5, albumin 2.8. DISCHARGE MEDICATIONS: 1. Vancomycin hemodialysis dosing for 2 more weeks. 2. Florinef 0.1 mg p.o. daily. 3. Clonidine 0.1 mg p.o. q.4 hourly p.r.n. 4. Aspirin 325 mg p.o. daily. 5. Vitamin C 500 mg p.o. daily. 6. Zidovudine 100 mg three times daily. 7. Spiriva inhaler daily. 8. Sevelamer 800 mg 3 times daily. 9. Raltegravir 400 mg twice daily. 10. Pravachol 20 mg p.o. q.p.m. 11. Protonix 40 mg p.o. daily. 12. Nortriptyline 25 mg p.o. at bedtime. 13. Hydralazine 25 mg twice daily. 14. Gabapentin 300 mg p.o. at bedtime. 15. Folic acid 1 mg p.o. daily. 16. Etravirine 200 mg twice daily. 17. Vitamin B12 1000 mcg p.o. daily. 18. Coreg 3.125 mg twice daily. 19. Albuterol inhaler q.6 hourly p.r.n. ALLERGIES: 1. CLINDAMYCIN. 2. PAROXETINE. 3. KEFLEX. 4. CIPROFLOXACIN. 5. DALTEPARIN. INPATIENT CONSULTS: 1. Dr. Barrera for Nephrology. 2. Dr. Morris for Infectious Disease. 3. Dr. Reyna for General Surgery. 4. Dr. Solorio for Pulmonary Critical Care. 5. Dr. Lawrence for Cardiology. DISCHARGE PLAN: The patient to follow up with his primary care physician at [facility] in 1 week, Dr. Morris in 3 to 4 weeks. BRIEF COURSE DURING HOSPITALIZATION: The patient initially got admitted on the after becoming hypotensive and confused while he was in dialysis. He was also found to be septic on arrival and the patient was admitted to ICU. He was apparently previously on hospice. The patient initially was on BiPAP and vasopressors and responded well. He has had [id number] hemodialysis done. The patient's one of two blood cultures grew MRSA. The patient has had prolonged stay in the hospital with deconditioning. He also has left bony amputation. He has had deconditioning with moderate protein malnutrition as well. In view of above history, Case Management consultation was requested for placement. This has been arranged at [facility]. He will be shortly discharged after hemodialysis today. The patient needs to continue vancomycin per sliding scale with hemodialysis per Dr. Morris' advice. Please note, I spent total of 35 minutes for discharge plan. Please see a [id number] documentation for the day of discharge on [employer]. Job ID: [id number]
--- NOTE | 2019-08-03 17:28 | PRG ---
DATE OF SERVICE: 08/03/2019 SERVICE: Nephrology. SUBJECTIVE: A 63-year-old male with multiple comorbidities including end-stage renal disease, on hemodialysis, admitted due to mental status change and hypotension. Nephrology is following the patient for end-stage renal disease management. The patient dialyzes Monday, , Monday. He is for dialysis today. No new complaint. Discharge is contemplated later today. OBJECTIVE: VITAL SIGNS: Temperature 98.2, pulse 72, respiratory rate 20, SpO2 of 95 on 2.5 L nasal cannula, blood pressure is 146/86. GENERAL: Comfortable male, in no obvious distress. Afebrile, anicteric, acyanotic. HEENT: Normocephalic and atraumatic. NECK: Supple. CARDIOVASCULAR: Soft systolic murmur noted. RESPIRATORY: Fair air entry bilaterally with few bibasilar crackles. No respiratory distress appreciated. GI: Full, soft, nontender, nondistended with normal bowel sounds. EXTREMITIES: Left AKA noted as well as left upper extremity AV fistula with aneurysmal dilatation and global swelling of left upper limb. Right extremities are grossly normal with no obvious edema or erythema. 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 DIAGNOSTIC DATA: Renal function panel today showed sodium 136, potassium 6.4, chloride 98, CO2 of 28, BUN 47, creatinine 3.56, glucose 77, calcium 8.9, phosphorus 6.8, albumin 2.8. ASSESSMENT: 1. End-stage renal disease, on hemodialysis, Monday, , Monday. We will dialyze the patient today for 4 hours with 2K bath. We will however increase dialysate rate to 800. 2. Hyperphosphatemia. 3. Hyperkalemia. 4. Anemia in chronic kidney disease. PLAN: We will dialyze the patient for 4 hours today with 2K bath. The patient can be discharged from Nephrology point of view after dialysis. The patient is to continue outpatient schedule in his usual dialysis unit. Job ID: [id number]
--- NOTE | 2019-08-05 01:42 | PQF ---
[employer] GurvinderWINSTON DERRICK VIDAL MD [id number] CLINICAL DOCUMENTATION CLARIFICATION FORM: POST DISCHARGE Addendum to original discharge summary date: ____ Late entry note date: __ DATE: 08/05/19 ATTN: Derrick Walsh Please exercise your independent, professional judgment in responding to the clarification form. Clinical indicators are provided on the bottom of this form for your review Can you please further clarify the specificity of HIV? Please check appropriate box(s): [ ] Symptomatic HIV Infection [ x ] Asymptomatic HIV infection status [ ] Non-specific serologic evidence of HIV [ ] Other diagnosis please specify [ ] Unable to determine In addition, please specify: Present on Admission (POA): [ x ] Yes [ ] No [ ] Unable to determine For continuity of documentation, please document condition throughout progress notes and discharge summary. Thank You. CLINICAL INDICATORS - SIGNS / SYMPTOMS / LABS DS 08/03 p.1- MRSA bacteremia, status post port removed ER p.8-"septic shock from pneumonia" PN 07/16 p.1- "immunosuppressed on human immunodeficiency virus/hepatitis C" Consult 07/19 p.1- "one out of 4 blood cultures positive for MRSA and his infectious disease specialist has requested removal of his mediport" DS 07/31 p.2- "since he was not using his Mediport, it might possibly be infected and that he wanted it removed" Consult Dr. Morris pg.3- Long standing human immunodeficiency virus, well controlled RISK FACTORS 63 years old- H and P pg.1 ESRD_ H and P pg.1 Hypertension- H and P pg.1 HIV Positive- H and P pg.1 CAD_ H and P pg.1- History of Hepatitis C- H and P pg.1 Sepsis- DS pg.1 pneumonia due to MRSA-PN 07/14 p.3 TREATMENTS: Infectious Consult Dr. Morris 07/19 IV antibiotics- OCT IV fluids- oct Palliative Consult 07/15 Dr. Nascimento Pulmonary Consult- Dr. Solorio Chest X ray 07/15 Continue HIV Meds Hospitalist PN Dr. Yao Antiretroviral Therapy- Consult Dr. Morris (This form is maintained as a part of the permanent medical record) 2014 [employer]. All Rights Reserved [email or web address] [not provided] [email or web address]
== END 2019-08-03 15:40 | DRG 871 ==
LOC: ERS 08:08 → CCU 13:39 → ONC 07-14 13:01
PROVIDERS: ADMIT Hospitalist; ATTEND Hospitalist
PROC: 5A1D70Z Performance of Urinary Filtration, Intermittent, Less than 6 Hours Per Day (ICD-10-PCS; 2019-07-13)
PROC: 3E033XZ Introduction of Vasopressor into Peripheral Vein, Percutaneous Approach (ICD-10-PCS; 2019-07-13)
PROC: 0JPT0WZ Removal of Totally Implantable Vascular Access Device from Trunk Subcutaneous Tissue and Fascia, Open Approach (ICD-10-PCS; principal; 2019-07-19)
DX: A41.02 Sepsis due to Methicillin resistant Staphylococcus aureus (principal); N18.6 End stage renal disease; I21.A1 Myocardial infarction type 2; J15.212 Pneumonia due to Methicillin resistant Staphylococcus aureus; G92 Toxic encephalopathy; R65.21 Severe sepsis with septic shock; J96.22 Acute and chronic respiratory failure with hypercapnia; J96.21 Acute and chronic respiratory failure with hypoxia; C15.9 Malignant neoplasm of esophagus, unspecified; I50.32 Chronic diastolic (congestive) heart failure; E44.0 Moderate protein-calorie malnutrition; Z68.1 Body mass index [BMI] 19.9 or less, adult; J44.0 Chronic obstructive pulmonary disease with (acute) lower respiratory infection; I13.2 Hypertensive heart and chronic kidney disease with heart failure and with stage 5 chronic kidney disease, or end stage renal disease; Z66 Do not resuscitate; Z51.5 Encounter for palliative care; Z21 Asymptomatic human immunodeficiency virus [HIV] infection status; Z96.652 Presence of left artificial knee joint; E11.22 Type 2 diabetes mellitus with diabetic chronic kidney disease; I25.10 Atherosclerotic heart disease of native coronary artery without angina pectoris; E78.5 Hyperlipidemia, unspecified; F41.9 Anxiety disorder, unspecified; B18.2 Chronic viral hepatitis C; R29.6 Repeated falls; G47.33 Obstructive sleep apnea (adult) (pediatric); D63.1 Anemia in chronic kidney disease; Z89.612 Acquired absence of left leg above knee; L89.152 Pressure ulcer of sacral region, stage 2; G47.00 Insomnia, unspecified; E83.39 Other disorders of phosphorus metabolism; E87.5 Hyperkalemia; K59.00 Constipation, unspecified; W05.1XXD Fall from non-moving nonmotorized scooter, subsequent encounter; Z99.81 Dependence on supplemental oxygen; Z99.2 Dependence on renal dialysis; Z88.1 Allergy status to other antibiotic agents; Z87.891 Personal history of nicotine dependence; Z90.49 Acquired absence of other specified parts of digestive tract; Z99.89 Dependence on other enabling machines and devices; Z88.8 Allergy status to other drugs, medicaments and biological substances; Z79.82 Long term (current) use of aspirin; Z79.51 Long term (current) use of inhaled steroids; Z95.5 Presence of coronary angioplasty implant and graft; Z79.899 Other long term (current) drug therapy; S42.002D Fracture of unspecified part of left clavicle, subsequent encounter for fracture with routine healing; S42.102D Fracture of unspecified part of scapula, left shoulder, subsequent encounter for fracture with routine healing; S22.41XD Multiple fractures of ribs, right side, subsequent encounter for fracture with routine healing
CPT/HCPCS: 36415; 36416; 36556; 70450; 71045; 71260; 72148; 74177; 80048; 80053; 80069; 80202; 82553; 82805; 83605; 83880; 84484; 85025; 85027; 87040; 87070; 87077; 87186; 87205; 90935; 93005; 94640; 94660; 96365; 96366; 96368; G0257; J0131; J0360; J1644; J1720; J2060; J2175; J2543; J3370; J3490; J7050; J7070; Q0163; Q9967; S0028

== ENCOUNTER 2019-08-14 23:59 | Inpatient (IN) | payer MEDICARE ==
[2019-08-15] MEDS ORDERED: Cefepime 1 GM VIAL ONE (00:19)
[2019-08-15 00:29] LABS: #Lymphocytes 1.2 thou/uL (1.20-3.40); #Monocytes 0.9 thou/uL (0.11-0.59); #Neutrophils 5.8 thou/uL (1.40-6.50); %Basophils 0.1 % (0.0-1.0); %Eosinophils 0.2 % (0.0-10.0); %Lymphocytes 15.1 % (21.0-51.0); %Monocytes 11.4 % (0.0-10.0); %Neutrophils 73.1 % (42.0-75.0); Hemoglobin 11.7 g/dL (14.0-18.0); Mean Corpuscular HGB CONC 31.4 g/dL (32.0-36.0); Mean Corpuscular Hemoglobin 33.6 pg (27.0-31.0); Mean Platelet Volume 9.1 fL (7.4-10.4); Platelet Count 217 thou/uL (130-400); RBC Distribution Width 17.6 % (11.5-14.5); Red Blood Cell (RBC) Count 3.49 mill/uL (4.70-6.10)
[2019-08-15 00:34] LABS: Actual Bicarbonate (HCO3a) 16.7 mEq/L (22-28); Analyzer IN Cardio ER; Base Excess (BEa) -11.2 mEq/L (-2.0 to +3.0); CO2 Tension 45.6 mmHg (35.0-45.0); Calcium, Ionized 1.16 mmol/L (1.12-1.30); Carboxyhemoglobin (COHb) 0.7 gm% (0.0-3.0); Hemoglobin (Hb) 11.7 g/dL (14.0-18.0); O2 Tension (PaO2) 230.1 mmHg (> 80.0); Potassium - ABG Lab 5.68 mmol/L (3.70-5.30)
[2019-08-15 00:42] LABS: Puncture Site RRA; pH, Arterial 7.18 (7.35-7.45)
[2019-08-15 00:53] LABS: ALT (SGPT) 207 U/L (8-55); AST (SGOT) 343 U/L (5-34); Albumin 3.2 g/dL (3.4-4.8); Alkaline Phosphatase 120 U/L (40-110); Anion Gap 29 mmol/L (10-20); BUN (Urea Nitrogen) 57 mg/dL (8.4-25.7); Bilirubin, Total 1.3 mg/dL (0.2-1.2); CK (CPK) 65 U/L (30-200); Calc. Creatinine Clearance 0 mL/min (70-130); Calcium 9.9 mg/dL (7.8-10.44); Carbon Dioxide 17 mmol/L (23-31); Chloride 97 mmol/L (98-107); Estimated GFR-MDRD 19; Globulin 3.9 g/dL (2.4-3.5); Lipase 5 U/L (8-78); Protein, Total 7.1 g/dL (5.8-8.1); Sodium 136 mmol/L (136-145)
[2019-08-15 00:58] LABS: Glucose 52 mg/dL (80-115); Potassium 6.6 mmol/L (3.5-5.1)
[2019-08-15] MEDS ORDERED: Calcium Chloride 1 GM/10 ML Abboject SYRINGE ONE (01:01)
[2019-08-15] MEDS ORDERED: Sodium Bicarb 50 MEQ/50 ML VIAL ONE (01:01)
[2019-08-15] MEDS ORDERED: Dextrose 50% Abboject 50 ML SYRINGE ONE (01:01)
[2019-08-15 01:14] LABS: CKMB 3.5 ng/mL (0-6.6)
[2019-08-15 03:44] LABS: Lactic Acid 6.2 mmol/L (0.5-2.2)
[2019-08-15] MEDS ORDERED: Bisacodyl 5 MG TAB PO PRN (04:14)
[2019-08-15] MEDS ORDERED: Acetaminophen 325 MG TAB PO PRN (04:14)
[2019-08-15] MEDS ORDERED: Bisacodyl 10 MG SUPP PR PRN (04:14)
[2019-08-15] MEDS ORDERED: Promethazine HCl 12.5 MG in Sodium Chloride 0.9% 50 ML IVPB PRN (04:17)
[2019-08-15] MEDS ORDERED: Ondansetron PF 4 MG/2 ML Vial IVP PRN (04:17)
[2019-08-15] MEDS ORDERED: cloNIDine 0.1 MG TAB PO PRN (04:17)
[2019-08-15 05:35] LABS: Anion Gap 28 mmol/L (10-20); BUN (Urea Nitrogen) 54 mg/dL (8.4-25.7); Calc. Creatinine Clearance 22 mL/min (70-130); Calcium 9.5 mg/dL (7.8-10.44); Carbon Dioxide 10 mmol/L (23-31); Chloride 103 mmol/L (98-107); Estimated GFR-MDRD 21; Glucose 71 mg/dL (80-115); Potassium 6.2 mmol/L (3.5-5.1); Sodium 135 mmol/L (136-145)
[2019-08-15 05:39] LABS: Lactic Acid 5.8 mmol/L (0.5-2.2)
--- NOTE | 2019-08-15 05:49 | PDOC.HHP ---
Hospitalist HPI - History of Present Illness Shortness of breath History of Present Illness: Patient is a 63 year old male with PMH COPD, ESRD on TTS HD, HTN, HIV, HLD, esophageal cancer, diverticulitis who presented to ED from snf with shortness of breath, reportedly desatting to 60s there. Placed on BIPAP with improvement, I saw patient in the ICU on BIPAP and feeling better, conversive but limited by the bipap machine. Denies chest pain or shortness of breath at this time. Patient w/ ESRD and sees Dr Rangel for TTS HD. In ED, troponin elevated 0.242, lactic acid 9, K 6.6, CO2 17, LFTs elevated, ABG w/ combined metabolic and respiratory acidosis, ED reported XR with pneumonia, final read pending, patient recieved antibiotics and calcium, sodium bicarbonate, asa, Dr Rangel called by ED team and plan for HD today, Dr Young notified of admission by ED Sound consulted for admission. Hospitalist ROS - Review of Systems Constitutional: denies: fever, chills, sweats, weakness, malaise, other Eyes: denies: pain, vision change, conjunctivae inflammation, eyelid inflammation, redness, other ENT: denies: ear pain, ear discharge, nose pain, nose discharge, nose congestion , mouth pain, mouth swelling, throat pain, throat swelling, other Respiratory: denies: cough, dry, shortness of breath, hemoptysis, SOB with excertion, pleuritic pain, sputum, wheezing, other Cardiovascular: denies: chest pain, palpitations, orthopnea, paroxysmal noc. dyspnea, edema, light headedness, other Gastrointestinal: denies: nausea, vomiting, abdominal pain, diarrhea, constipation, melena, hematochezia, other Genitourinary: denies: dysuria, frequency, incontinence, hematuria, retention, other Musculoskeletal: denies: neck pain, shoulder pain, arm pain, back pain, hand pain, leg pain, foot pain, other Skin: denies: rash, lesions, chiara, bruising, other Neurological: denies: weakness, numbness, incoordination, change in speech, confusion, seizures, other All other systems reviewed; all pertinent +/- noted in HPI/Subj - Medication Medications: Active Medications Generic Name Dose Route Start Last Admin Trade Name Freq PRN Reason Stop Dose Admin Zidovudine 100 mg 08/15/19 06:00 08/15/19 05:39 Retrovir PO 100 mg Q8HR ESME Administration Hospitalist History - Past Medical History Other Medical History: COPD, ESRD on TTS HD, HTN, HIV, HLD, esophageal cancer, diverticulitis - Past Surgical History Other Surgical History: Surgical history of appendectomy, Hemorrhoidectomy, Surgical history of amputation to, left lower extremity, Date of surgery 2009, Notes: Left AKA for staph infection - S/P L TOTAL KNEE REPLACEMENT, Surgical history of hernia repair x 3, Surgical history of tonsillectomy, "MY UVULA'S GONE ALSO.". LEFT LOWER ARM DIALYSIS SHUNT. Left elbow surgery. Verified with patient 07/13/2019. - Family History Family History: reports: no pertinent history - Social History Other Social History: Patient drinks socially, rarely, Patient is a former drug user, abused cocaine, abused marijuana, Patient is a former tobacco user, smoked cigarettes, Patient quit smoking more than 10 years ago, Lives at home, alone, Patient has pets, Verified with patient 07/13/2019. - Exam General Appearance: NAD, awake alert Eye: PERRL, anicteric sclera ENT: normocephalic atraumatic, no oropharyngeal lesions, moist mucosa ENT - other findings: BIPAP Neck: supple, symmetric, no JVD, no thyromegaly, no lymphadenopathy, no carotid bruit Heart: RRR, no murmur, no gallops, no rubs, normal peripheral pulses Respiratory: CTAB, no wheezes, no rales, no ronchi, normal chest expansion, no tachypnea, normal percussion Gastrointestinal: soft, non-tender, non-distended, normal bowel sounds, no palpable masses, no hepatomegaly, no splenomegaly, no bruit Extremities: no cyanosis, no clubbing, no edema Skin: normal turgor, no lesions, no rashes Skin - other findings: decubitus ulcer Neurological: cranial nerve grossly intact, normal sensation to touch, no weakness, no focal deficits, no new deficit Musculoskeletal: normal tone, normal strength, no muscle wasting Psychiatric: normal affect, normal behavior, A&O x 3 Hospitalist Results - Labs Result Diagrams: 08/15/19 00:27 08/15/19 04:46 Lab results: WBC 8.0 thou/uL (4.8-10.8) 08/15/19 00:27 Hgb 11.7 g/dL (14.0-18.0) L 08/15/19 00:27 Hct 37.3 % (42.0-52.0) L 08/15/19 00:27 MCV 107.0 fL (78.0-98.0) H 08/15/19 00:27 Plt Count 217 thou/uL (130-400) 08/15/19 00:27 Neutrophils % 73.1 % (42.0-75.0) 08/15/19 00:27 ABG pH 7.18 (7.35-7.45) L* 08/15/19 00:31 ABG pCO2 45.6 mmHg (35.0-45.0) H 08/15/19 00:31 ABG pO2 230.1 mmHg (> 80.0) H 08/15/19 00:31 Sodium 135 mmol/L (136-145) L 08/15/19 04:46 Potassium 6.2 mmol/L (3.5-5.1) H 08/15/19 04:46 Chloride 103 mmol/L (98-107) 08/15/19 04:46 Carbon Dioxide 10 mmol/L (23-31) L 08/15/19 04:46 BUN 54 mg/dL (8.4-25.7) H 08/15/19 04:46 Creatinine 3.61 mg/dL (0.7-1.3) H 08/15/19 04:46 Glucose 71 mg/dL (80-115) L 08/15/19 04:46 Lactic Acid 5.8 mmol/L (0.5-2.2) H* 08/15/19 04:46 Calcium 9.5 mg/dL (7.8-10.44) 08/15/19 04:46 Total Bilirubin 1.3 mg/dL (0.2-1.2) H 08/15/19 00:27 AST 343 U/L (5-34) H 08/15/19 00:27 ALT 207 U/L (8-55) H 08/15/19 00:27 Alkaline Phosphatase 120 U/L (40-110) H 08/15/19 00:27 Creatine Kinase 65 U/L (30-200) 08/15/19 00:27 CK-MB (CK-2) 3.5 ng/mL (0-6.6) 08/15/19 00:27 Troponin I 0.242 ng/mL (< 0.028) H 08/15/19 00:27 Serum Total Protein 7.1 g/dL (5.8-8.1) 08/15/19 00:27 Albumin 3.2 g/dL (3.4-4.8) L 08/15/19 00:27 Lipase 5 U/L (8-78) L 08/15/19 00:27 VITALS , EKG reviewed no peaked T waves, nonspecific T wave changes in V1-V6 Additional comment: BP: 132/98 MAP: 109 Pulse: 94 Resp: 20 Pain: 0 O2 sat: 98 on (Bipap) Time: 08/15/2019 01:53. Hospitalist H&P A/P - Plan Plan: Patient is a 63 year old male with PMH COPD, ESRD on TTS HD, HTN, HIV, HLD, esophageal cancer, diverticulitis who presented to ED from snf with shortness of breath. # healthcare associated pneumonia - continue vanc/cefepime, follow up final XR report, appreciate pumonology input and assistance, continue BIPAP, lactate improving # lactic acidosis - likely secondary to sepsis and hypoxia, continue treatment of pneumonia as above and respiratory support # hyperkalemia - recieved intervention in ED, plan for HD this AM, Dr Rangel discussed with ED physician # elevated troponin - no ST changes, likely type 2 due to hypoxia and sepsis, trend troponin, continue ASA, consider cardiology consult in AM # metabolic acidosis - ESRD likely cause appreciate nephrology input # COPD - treat pneumonia as above, start steroids # HIV, HCV - continue home meds # elevated LFTs - trend LFT, follow up abdominal ultrasound 55 minutes critical care time
[2019-08-15] MEDS ORDERED: Aspirin 325 mg Enteric Coated Tablet PO SCH (06:00)
[2019-08-15] MEDS ORDERED: Dextrose 5% in Water 1,000 ML IV PRN (06:08)
[2019-08-15] MEDS ORDERED: HumaLOG 300 UNITS/3 ML VIAL SC PRN (06:08)
[2019-08-15] MEDS ORDERED: Dextrose 50% Abboject 50 ML SYRINGE SLOW IVP PRN (06:08)
[2019-08-15] MEDS ORDERED: Cefepime 1 GM in Sodium Chloride 0.9% 100 ML IVPB SCH ×2 (06:15→06:45)
[2019-08-15] MEDS: methylPREDNISolone Sod Succ/PF 125 MG/2 ML VIAL IVP SCH ×3 (06:40→21:38)
[2019-08-15] MEDS ORDERED: Vancomycin HCl 1 GM in Premix Bag 1 BAG IVPB SCH (07:00)
[2019-08-15] MEDS: Ipratropium Bromide 2.5 ml Neb NEB SCH ×3 (07:42→18:14)
--- NOTE | 2019-08-15 08:03 | ULT ---
PRELIMINARY REPORT/DIRECT RADIOLOGY/EMERGENCY AFTER HOURS PROCEDURE EXAM: US Abdomen Limited, Right Upper Quadrant. CLINICAL HISTORY: Elevated LFT's HX cholecystectomy TECHNIQUE: Real-time ultrasound of the right upper quadrant with image documentation. COMPARISON: None provided. FINDINGS: LIVER: Appears enlarged at 19.5 cm and demonstrates fatty infiltration. A small hypoechoic focus in the RIGHT hepatic lobe may represent a hemangioma GALLBLADDER: Surgically absent. COMMON BILE DUCT: No dilation. Measures 4.4 mm PANCREAS: Obscured by overlying bowel gas. RIGHT KIDNEY: Measures 8.3 cm and demonstrates multiple cysts. No hydronephrosis. IMPRESSION: Fatty infiltration of the liver with prior cholecystectomy ELECTRONICALLY SIGNED BY: Fab Mcmillan MD Aug 15, 2019 1:45:01 AM MOUNTING MACHINE OPERATOR FINAL REPORT GALLBLADDER ULTRASOUND: HISTORY: Right upper quadrant pain. FINDINGS: Real-time imaging of the right upper quadrant shows post cholecystectomy change. The common duct is 4 mm. The visualized liver parenchyma shows no focal findings. The liver is enlarged at 19.6 cm, sugge stion of some mild fatty change. There is a small, hypoechoic focus within the right lobe, measuring 17 mm, possibly a complex cyst. The right kidney is atrophic. There appear to be several small cysts. The right kidney measures 8.3 c m in size. The cortex is echogenic. The pancreas region is obscured by bowel gas. IMPRESSION: 1. Atrophic appearing right kidney. 2. Post cholecystectomy change. 3. Suggestion of a mild element of fatty change to the liver which is slightly enlarged. POS: [facility]
[2019-08-15] MEDS ORDERED: TIOTROPIUM BROMIDE 2.5 MCG IH SCH (09:00)
[2019-08-15] MEDS ORDERED: FLU VACC QS2019-20(6MOS UP)/PF 60 MCG/0.5 ML SYRINGE IM ONE (09:00)
[2019-08-15] MEDS: Enoxaparin Sodium 30 MG/0.3 ML SYRINGE SC SCH ×2 (09:00→10:00)
--- NOTE | 2019-08-15 09:04 | CON ---
DATE OF CONSULTATION: 08/15/2019 SERVICE: Pulmonary Medicine. REASON FOR CONSULTATION: ICU patient. HISTORY OF PRESENT ILLNESS: The patient is a 63-year-old male with past medical history significant for end-stage renal disease. He has had a fairly significant functional decline over the last couple of months. Either way, he was in his usual state of health at [facility] when he was noticed to have increasing difficulty breathing and saturations in the 60s. He was brought to the emergency department and placed on BiPAP. His oxygen saturations improved significantly. Currently, the patient is on dialysis. He is poorly conversive and quite somnolent. That being said, he wakes up comfortably, he answers some simple commands. With no stimulation after 10 seconds, he drifts back off to sleep. I cannot get much of a history from him at this point. PAST MEDICAL HISTORY: 1. End-stage renal disease. 2. Hypertension. 3. Dyslipidemia. 4. COPD. 5. HIV. 6. Esophageal cancer. 7. Diverticulosis. PAST SURGICAL HISTORY: 1. Appendectomy. 2. Hemorrhoidectomy. 3. Above-knee amputation of the left lower extremity. 4. Herniorrhaphy x3. 5. Tonsillectomy. 6. UPPP. 7. Dialysis shunt placement in the left forearm. 8. Left elbow surgery. FAMILY HISTORY: Noncontributory. SOCIAL HISTORY: He has a history of cocaine and marijuana abuse, but does not use anything currently. He used to smoke cigarettes significantly. Greater than 50 pack-year history of smoking, but quit over 10 years ago. He denies any current alcohol or drug use. He is currently living in a nursing facility. REVIEW OF SYSTEMS: This cannot be obtained because of encephalopathy. PHYSICAL EXAMINATION: VITAL SIGNS: Afebrile, pulse 84, blood pressure 117/74, respirations 21, saturation 100%, currently on 37% FiO2 delivered via BiPAP with an EPAP of 6. HEENT: Normocephalic and atraumatic. Sclerae white. Conjunctivae pink. Oral mucosa is moist without lesions. LUNGS: Decent air entry. Extensive rhonchi present throughout bilateral lung arriaga. HEART: Normal rate and regular. ABDOMEN: Soft, nontender, nondistended. Bowel sounds are positive. MUSCULOSKELETAL: No cyanosis or clubbing. There is 1+ pitting in the lower extremities. NEUROLOGIC: Grossly nonfocal. LABORATORIES: WBC 8.0, hemoglobin 11.7, platelets 217,000, neutrophil count is 73%. This is a normal differential. Monocytes are elevated. The pH is 7.18, pCO2 of 45, PO2 of 230. Creatinine 3.61, BUN 54, anion gap 28, bicarb 10, potassium 6.2. Lactic acid was originally 9.0, but is clearing to 5.8. Calcium 9.5. Troponin 0.242. Liver function studies are unremarkable. AST and ALT are both elevated. Alkaline phosphatase is also elevated. IMAGING: Abdominal ultrasound demonstrates atrophic-appearing right kidney. Post cholecystostomy. Fatty liver changes are present. Liver is enlarged. Chest x-ray demonstrates enlarged cardiac silhouette. There is some atelectasis and/or infiltrate in the right base. Multiple bilateral pulmonary nodules are present. ASSESSMENT: 1. Acute hypoxic and hypercapnic respiratory failure. 2. Healthcare-associated pneumonia. 3. End-stage renal disease. 4. Metabolic encephalopathy. 5. Severe sepsis. DISCUSSION AND PLAN: We will go and continue on antibiotics. I will add stress doses of steroids. The patient is critically sick right now. After dialysis is done, we will start weaning the BiPAP as tolerated. If he does not tolerate, breaks off the BiPAP, we will likely need to proceed with intubation if the patient remains a full code. Ultimately, the patient has had a very significant functional decline over the past 2 to 3 months. As such, Palliative Care consultation will be placed to discuss goals of care. He will remain in the ICU today. 70 minutes have been devoted to this patient in various activities. I personally reviewed all imaging studies and laboratory data noted within this document. For fifty percent of this time, I was interacting with the patient at the bedside or coordinating care with the care team. For the remainder of the time I was immediately available to the patient in the hospital unit. Job ID: [id number] MTDD
--- NOTE | 2019-08-15 09:14 | RAD ---
PORTABLE CHEST ONE VIEW: 08/15/2019 12:03 a.m. HISTORY: Shortness of breath. COMPARISON: 07/15/2019 FINDINGS: The right sided Port-A-Cath has been removed in the interim. The heart size is enlarged. There are op acities in the lower lung zones bilaterally, left greater than right, with left effus ion. No pneumothoraces is seen. POS: [facility]
[2019-08-15 09:16] LABS: Troponin I 0.398 ng/mL (< 0.028)
[2019-08-15] MEDS: Raltegravir Potassium 400 MG TAB PO SCH ×2 (12:26→21:26)
[2019-08-15] MEDS: Polyethylene Glycol 3350 17 GM Packet PO SCH (12:27)
[2019-08-15] MEDS: Fludrocortisone Acetate 0.1 MG TAB PO SCH (12:29)
[2019-08-15 12:59] LABS: Critical Call Chem Troponin I RESULT DECREASING; Troponin I 0.371 ng/mL (< 0.028)
[2019-08-15] MEDS ORDERED: Ipratropium Bromide 2.5 ml Neb ONE (17:58)
[2019-08-15 19:17] LABS: Critical Call Chem Troponin I RESULT DECREASING; Troponin I 0.342 ng/mL (< 0.028)
[2019-08-15] MEDS: hydrALAZINE 20 MG/ML VIAL SLOW IVP PRN (20:30)
--- NOTE | 2019-08-15 20:33 | PRG ---
DATE OF SERVICE: 08/15/2019 SERVICE: Nephrology. SUBJECTIVE: A 63-year-old male with known history of end-stage renal disease, on hemodialysis, peripheral vascular disease, status post amputation, amongst others with multiple hospitalization as well as overall physical decline in the last 2 to 3 months, recently discharged from the hospital to half-way with hospice, now re-admitted due to hypotension and hypoxia. The patient on evaluation was found to have hypoglycemia as well as hyperkalemia and lactic acidosis. Blood pressure was low, which improved with IV fluid therapy. Nephrology is following the patient for end-stage renal disease management and hyperkalemia. OBJECTIVE: GENERAL: Lethargic male with BiPAP mask in place. HEENT: Normocephalic and atraumatic. CARDIOVASCULAR: Regular rhythm and rate with heart sounds 1 and 2. Systolic murmur noted. RESPIRATORY: Fair air entry bilaterally with no obvious crackle or rhonchi or use of accessory muscles. GI: Full, soft, nontender, and nondistended with normal bowel sounds. EXTREMITIES: Grossly normal looking, atraumatic with no edema or erythema. APPLICATION SERVICES MANAGER: The patient is lethargic. Attempts to wake up. LABORATORY DATA: CBC showed WBC count of 8.0, hemoglobin of 11.7, MCV of 107, platelets of 217. Arterial blood gas showed pH of 7.18, pCO2 of 45.6, pO2 of 280. Anion gap 98. Ionized calcium is 1.16. BMP on presentation showed sodium 135, potassium 6.2, chloride 103, CO2 of 10, anion gap 28, BUN 54, creatinine 3.61, glucose 71, calcium 9.5. Initial lactic acid was 9.0, which has come down to 5.8. Troponin is elevated. Initial was 0.242 that has trended up to a peak of 0.398 before trending down to 0.342. ASSESSMENT: 1. Hypotension with end-organ dysfunction given acute abnormal liver enzymes and lactic acidosis as well as mental status change of acute encephalopathy. Most likely, due to severe sepsis from unclear etiology. Blood pressure has improved with IV fluid therapy. 2. Acute on chronic respiratory failure with hypoxia and hypercarbia. 3. Lactic acidosis: Due to hypotension. 4. Abnormal liver function tests: Due to shock liver. 5. Hypertension: Blood pressure was low on presentation, which improved with IV fluid therapy. 6. End-stage renal disease, on hemodialysis. Last dialysis was yesterday. Hyperkalemia with potassium 6.2. 7. Chronic debilitation. PLAN: 1. We will dialyze the patient emergently today with 2K bath. UF will be grossly limited due to hypotension and the patient appeared clinically dry. 2. Further treatment as per primary attending and administrative accountant. 3. We will follow along with you. Job ID: [id number]
[2019-08-16] MEDS ORDERED: Ipratropium Bromide 2.5 ml Neb ONE (00:07)
[2019-08-16] MEDS: Ipratropium Bromide 2.5 ml Neb NEB SCH ×5 (00:25→23:34)
[2019-08-16] MEDS: Cefepime 1 GM in Sodium Chloride 0.9% 100 ML IVPB SCH (00:52)
[2019-08-16] MEDS: HYDROcodone/Acetaminophen 5/325 mg Tablet PO PRN ×3 (01:18→20:29)
[2019-08-16] MEDS: methylPREDNISolone Sod Succ/PF 125 MG/2 ML VIAL IVP SCH (05:56)
[2019-08-16] MEDS: hydrALAZINE 20 MG/ML VIAL SLOW IVP PRN ×2 (05:56→16:59)
[2019-08-16 06:11] LABS: Vancomycin, Random 7.9 ug/mL (See Comment)
[2019-08-16 06:14] LABS: Anion Gap 19 mmol/L (10-20); BUN (Urea Nitrogen) 41 mg/dL (8.4-25.7); Calc. Creatinine Clearance 30 mL/min (70-130); Calcium 10.7 mg/dL (7.8-10.44); Carbon Dioxide 24 mmol/L (23-31); Chloride 97 mmol/L (98-107); Estimated GFR-MDRD 30; Glucose 104 mg/dL (80-115); Phosphorus 7.6 mg/dL (2.3-4.7); Potassium 4.6 mmol/L (3.5-5.1); Sodium 135 mmol/L (136-145)
[2019-08-16 06:15] VITALS: BMI 21.5
[2019-08-16 06:20] LABS: Hemoglobin 11.1 g/dL (14.0-18.0); Mean Corpuscular HGB CONC 31.1 g/dL (32.0-36.0); Mean Corpuscular Hemoglobin 32.8 pg (27.0-31.0); Mean Platelet Volume 10.2 fL (7.4-10.4); Platelet Count 154 thou/uL (130-400); RBC Distribution Width 17.5 % (11.5-14.5); Red Blood Cell (RBC) Count 3.38 mill/uL (4.70-6.10); White Blood Cell (WBC) Count 5.1 thou/uL (4.8-10.8)
[2019-08-16 06:22] LABS: ALT (SGPT) 3247 U/L (8-55); Albumin 2.9 g/dL (3.4-4.8); Alkaline Phosphatase 130 U/L (40-110); Bilirubin, Direct 0.6 mg/dL (0.1-0.3); Protein, Total 6.7 g/dL (5.8-8.1)
[2019-08-16 06:54] LABS: #Lymphocytes 0.7 thou/uL (1.20-3.40); #Monocytes 0.2 thou/uL (0.11-0.59); #Neutrophils 4.1 thou/uL (1.40-6.50); %Basophils 0.1 % (0.0-1.0); %Eosinophils 0.1 % (0.0-10.0); %Lymphocytes 14.5 % (21.0-51.0); %Monocytes 4.2 % (0.0-10.0); Band 2 % (5-11); Lymphocytes 11 % (21-51); MDiff Complete? YES; Monocytes 8 % (0-10); Neutrophil 79 % (42-75); Nucleated RBC 4 % (0)
[2019-08-16 07:14] LABS: AST (SGOT) Greater than 3500 U/L (5-34)
--- NOTE | 2019-08-16 10:37 | PRG ---
DATE OF SERVICE: 08/16/2019 SERVICE: Pulmonary Medicine. INTERVAL HISTORY: The patient is doing outstanding from a respiratory standpoint. His blood pressure is firmed up very nicely. He denies any fevers, chills, nausea, or vomiting. He still feels like he is weak. That being said, he has made profound improvement in symptoms. Otherwise, there has been no interval change to his condition. He has been off the BiPAP. He uses CPAP at home at 7 cm of water pressure. He is requesting to use that while he is here in the hospital if possible. PHYSICAL EXAMINATION: VITAL SIGNS: Afebrile, pulse 69, blood pressure 167/95, respirations 19, saturation 98% on 3 L nasal cannula. GENERAL: The patient is awake and alert, in no apparent distress. LUNGS: Wonderful air entry. No prolonged expiratory phase is present today. Minimal rhonchi are present on the right. HEART: Normal rate, regular. ABDOMEN: Soft, nontender, and nondistended. Bowel sounds are positive. MUSCULOSKELETAL: No cyanosis or clubbing. No pitting in the bilateral lower extremities. NEUROLOGIC: Grossly nonfocal. LABORATORY DATA: WBC 5.1, hemoglobin 11.1, platelets 154,000, MCV 106. Creatinine 2.67 and then downtrending, BUN 41, improved with dialysis. Basic metabolic profile is otherwise unremarkable. Calcium 10.7, phosphorus 7.6. AST greater than 3500, ALT is 3200. Vancomycin 7.6. Coag-negative staph is growing in 1/2 blood cultures. IMAGING STUDIES: Echocardiogram demonstrates 60% to 65% ejection fraction. RV is all overloaded. There is grade 2/3 diastolic dysfunction. Estimated right ventricular systolic pressure is 120 mmHg. ASSESSMENT: 1. Acute hypoxic and hypercapnic respiratory failure, improving. 2. Healthcare-associated pneumonia. 3. End-stage renal disease. 4. Metabolic encephalopathy. 5. Severe sepsis. 6. Shock liver. 7. Pulmonary hypertension, likely secondary to severe volume overload. DISCUSSION AND PLAN: The patient has done wonderful with dialysis yesterday. He is much more awake and alert. He is more conversive. As such, I think that he can transition out of the ICU to the medical unit. We will get a Doppler of the hepatic flow to the liver. We will trend the liver function studies through time. Pulmonary/Critical Care will continue to follow along for the time being. Job ID: [id number]
[2019-08-16] MEDS: Vancomycin HCl 1 GM in Premix Bag 1 BAG IVPB SCH (10:47)
[2019-08-16] MEDS: Raltegravir Potassium 400 MG TAB PO SCH ×2 (10:48→20:32)
[2019-08-16] MEDS: Polyethylene Glycol 3350 17 GM Packet PO SCH (10:48)
[2019-08-16] MEDS: Aspirin 81 mg Enteric Coated Tablet PO SCH (10:48)
[2019-08-16] MEDS: Enoxaparin Sodium 30 MG/0.3 ML SYRINGE SC SCH (11:43)
--- NOTE | 2019-08-16 13:59 | PDOC.HOSPP ---
- Subjective Encounter Date: 08/16/19 Encounter Time: 11:45 Subjective: Expresses no complaint... - Objective Vital Signs & Weight: Vital Signs (12 hours) Temp Pulse Resp BP Pulse Ox 08/16/19 13:31 78 16 08/16/19 12:15 98.1 F 81 22 H 151/91 H 94 L 08/16/19 08:00 98.7 F 98 08/16/19 07:26 69 19 98 08/16/19 05:56 70 08/16/19 04:00 98.4 F 08/16/19 02:56 70 Weight Admit Weight 163 lb Weight 167 lb 12.348 oz Most Recent Monitor Data Heart Rate from ECG 77 NIBP 163/95 NIBP BP-Mean 117 Respiration from ECG 23 SpO2 92 I&O: 08/15/19 08/16/19 08/17/19 06:59 06:59 06:59 Intake Total 50 970 740 Output Total 0 0 Balance 50 970 740 Result Diagrams: 08/16/19 05:08 08/16/19 05:08 Additional Labs: Accuchecks 08/16/19 08/16/19 06:26 01:09 POC Glucose 104 99 Hospitalist ROS - Medication Medications: Active Medications Generic Name Dose Route Start Last Admin Trade Name Freq PRN Reason Stop Dose Admin Hydrocodone Bitart/Acetaminophen 1 tab 08/15/19 04:14 08/16/19 10:49 Graff 5/325 PO 1 tab Q4H PRN Administration Moderate Pain (4-6) Aspirin 81 mg 08/16/19 09:00 08/16/19 10:48 Ecotrin PO 81 mg DAILY ESME Administration Etravirine 200 mg 08/15/19 08:00 08/16/19 10:49 Intelence PO 200 mg BID-PC ESME Administration Fludrocortisone Acetate 0.1 mg 08/15/19 09:00 08/15/19 12:29 Florinef PO 0.1 mg DAILY ESME Administration Hydralazine HCl 10 mg 08/15/19 04:17 08/16/19 05:56 Apresoline SLOW IVP 10 mg Q6H PRN Administration SBP GREATER THAN 160 Vancomycin HCl 1 gm/ Device 200 mls @ 200 mls/hr 08/16/19 08:00 08/16/19 10: 47 IVPB 200 mls 0800 ESME Administration Cefepime HCl 1 gm/ Sodium 100 mls @ 200 mls/hr 08/16/19 00:00 08/16/19 00:52 Chloride IVPB 100 mls 0000 ESME Administration Ipratropium [place] 2.5 ml 08/16/19 13:00 08/16/19 13:31 Atrovent NEB 2.5 ml [id number] ESME Administration Pantoprazole Sodium 40 mg 08/15/19 09:00 08/16/19 10:49 Protonix PO 40 mg DAILY ESME Administration Polyethylene Glycol 17 gm 08/15/19 09:00 08/16/19 10:48 Miralax PO 17 gm DAILY ESME Administration Raltegravir 400 mg 08/15/19 09:00 08/16/19 10:48 Isentress PO 400 mg BID ESME Administration Zidovudine 100 mg 08/15/19 06:00 08/16/19 06:50 Retrovir PO 100 mg Q8HR ESME Administration - Exam General Appearance: NAD Neck: no JVD Heart: RRR Respiratory: CTAB Gastrointestinal: soft Extremities: no edema (s/p left AKA..) Neurological: no weakness Psychiatric: normal affect Hosp A/P (1) Lactic acid acidosis Code(s): E87.2 - ACIDOSIS Status: Acute (2) Acute on chronic respiratory failure with hypoxemia Code(s): J96.21 - ACUTE AND CHRONIC RESPIRATORY FAILURE WITH HYPOXIA Status: Acute (3) DM (diabetes mellitus) Code(s): E11.9 - TYPE 2 DIABETES MELLITUS WITHOUT COMPLICATIONS Status: Chronic Qualifiers: Diabetes mellitus type: type 2 Diabetes mellitus medical terminologist insulin use: without medical terminologist use Diabetes mellitus complication status: with kidney complications Diabetes mellitus complication detail: with chronic kidney disease Chronic kidney disease stage: on chronic dialysis Qualified Code(s) : E11.22 - Type 2 diabetes mellitus with diabetic chronic kidney disease; N18.6 - End stage renal disease; Z99.2 - Dependence on renal dialysis (4) ESRD (end stage renal disease) on dialysis Code(s): N18.6 - END STAGE RENAL DISEASE; Z99.2 - DEPENDENCE ON RENAL DIALYSIS Status: Chronic (5) HTN (hypertension) Code(s): I10 - ESSENTIAL (PRIMARY) HYPERTENSION Status: Chronic Qualifiers: Hypertension type: essential hypertension Qualified Code(s): I10 - Essential (primary) hypertension (6) Pneumonia Code(s): J18.9 - PNEUMONIA, UNSPECIFIED ORGANISM Status: Acute (7) Severe sepsis Code(s): A41.9 - SEPSIS, UNSPECIFIED ORGANISM; R65.20 - SEVERE SEPSIS WITHOUT SEPTIC SHOCK Status: Acute - Plan Overall condition is improving.. Continue current therapy. BxC is growing coagulase negative Staph
[2019-08-16] MEDS: Fludrocortisone Acetate 0.1 MG TAB PO SCH (15:09)
--- NOTE | 2019-08-16 16:34 | ULT ---
Hepatic sonogram with duplex evaluation HISTORY: Acute liver injury. FINDINGS: Gallbladder is surgically absent. Common duct is obscured by bowel gas. No evidence of dila tation. Small cysts of the liver correlate with those on recent CT scan. No free fluid. Liver is enlarged at 22.2 cm. Spleen obscured by bowel gas. It was not enlarged on recent CT scan. Portal vein appears somewhat distended. Good color and spectral Doppler flow within the hepatic and s plenic arteries. Portal venous flow is towards the liver. Hepatic venous flow is towards the IVC. IMPRESSION: Status post cholecystectomy. No evidence of acute biliary obstruction. Hepatomegaly. Portal vein distention suggestive of portal venous hypertension. No reversal of flow. Spleen is not enlarged.
--- NOTE | 2019-08-16 19:44 | PRG ---
DATE OF SERVICE: SERVICE: Nephrology. SUBJECTIVE: A 63-year-old male with multiple comorbidities, including hypertension; diabetes; HIV; and end-stage renal disease, on hemodialysis, admitted from residential due to hypotension and mental status change as well as hypoxia. Patient was treated with IV fluid therapy with improvement in blood pressures. Mental status is improved and patient is back to baseline. Complains of right shoulder pain and decreased range of motion. No fever. OBJECTIVE: VITAL SIGNS: Temperature 98.7, pulse 73, respiratory rate 21, SpO2 is 94% on oxygen supplementation, and blood pressure is 169/101. GENERAL: Chronically ill-looking male, in no obvious distress. Afebrile. Anicteric. Acyanotic. HEENT: Normocephalic and atraumatic. Oral mucosa is moist. CARDIOVASCULAR: Normal heart sounds 1 and 2 with systolic murmur. RESPIRATORY: Fair air entry bilaterally with some transmitted breath sounds. GI: Full, soft, nontender, nondistended with normal bowel sounds. EXTREMITIES: No edema appreciated. Muscular atrophy noted. 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 ONLINE PROJECT MANAGER: Conscious, alert, and oriented x3 with appropriate mental status. Cranial nerves 2 through 12 are grossly intact. DIAGNOSTIC DATA: CBC showed WBC count of 5.1, hemoglobin of 11.1, MCV of 106, and platelet of 154. BMP showed sodium 135, potassium 4.6, chloride 97, CO2 of 24, BUN 41, creatinine 2.67, glucose 104, calcium 10.7, phosphorus 7.6, and magnesium 2.0. LFT showed total bilirubin of 1.0, AST of more than 3500, and ALT 3247. Alkaline phosphatase is 130. Total protein 6.7, albumin 2.9. ASSESSMENT: 1. Hypotension: Resolved. Blood pressure is now elevated. 2. Hypertension. 3. End-stage renal disease, on hemodialysis. Last dialysis was yesterday, August 15. 4. Volume status: Patient is euvolemic. 5. Electrolytes: Acceptable. PLAN: 1. We will restart some antihypertensives. We will restart carvedilol and hydralazine and monitor blood pressure closely. 2. We will plan on dialyzing the patient tomorrow. 3. Patient can be moved to medical floor from Nephrology point of view. Further treatment as per primary attending and psychologist private practice. Job ID: [id number]
[2019-08-16] MEDS: hydrALAZINE 25 MG TAB PO SCH (20:31)
[2019-08-16] MEDS: Carvedilol 3.125 MG TAB PO SCH (20:31)
[2019-08-16] MEDS: Melatonin 3 MG TAB PO SCH (23:57)
[2019-08-17] MEDS: Cefepime 1 GM in Sodium Chloride 0.9% 100 ML IVPB SCH ×3 (00:27→23:59)
[2019-08-17] MEDS: Ipratropium Bromide 2.5 ml Neb NEB SCH ×3 (06:40→18:21)
--- NOTE | 2019-08-17 08:08 | PRG ---
DATE OF SERVICE: 08/17/2019 SERVICE: Nephrology. SUBJECTIVE: A 63-year-old male seen in followup for end-stage renal disease management and electrolyte derangement. Admitted due to acute mental status change, hypotension, and hyperkalemia, as well as respiratory failure with hypoxia. The patient is improved following BiPAP treatment. Currently, on nasal cannula oxygen supplementation. Denied chest pain, nausea, vomiting. Last treatment was on August 15, . The patient's usual schedule is TTS. OBJECTIVE: VITAL SIGNS: Temperature 97.6, pulse 71, respiratory rate 20, SpO2 of 92% on 3 L nasal cannula, blood pressure is 115/76. GENERAL: Chronically ill-looking elderly male, in no obvious distress. Afebrile. Anicteric. Acyanotic. HEENT: Normocephalic, atraumatic. NECK: Supple with no JVD. CARDIOVASCULAR: Regular rhythm and rate. Systolic murmur noted. RESPIRATORY: Fair air entry bilaterally with bibasilar crackles. Work of breathing, however, is not increased. GASTROINTESTINAL: Full, soft with normal bowel sounds. Diffuse tenderness noted. EXTREMITIES: Left AKA noted. Other extremities are grossly normal with no obvious edema or erythema. CENTRAL NERVOUS SYSTEM: Conscious, alert, and oriented x3 with appropriate mental status. Cranial nerves 2 through 12 are grossly intact. DIAGNOSTIC DATA: No new labs today; however, renal function panel of August 16, 2019, showed sodium 133, potassium 4.6, chloride 97, CO2 of 24, BUN 41, creatinine 2.67, glucose 104, calcium 10.7, phosphorus 7.6, magnesium 2.0. ASSESSMENT AND PLAN: 1. End-stage renal disease, on hemodialysis. We will dialyze the patient today with UF as tolerated. 2. Hyperkalemia: Resolved with hemodialysis. We will continue to treat with hemodialysis. 3. Hypotension: Resolved. 4. Hypertension: Restarted on antihypertensives at a lower dose. We will monitor closely. 5. Abdominal tenderness: Etiology is unclear. We defer evaluation to primary attending. 6. Abnormal liver enzymes: Most likely due to shock liver. Biliary pathology cannot be ruled out, however. The patient is status post cholecystectomy with ultrasound showing no evidence of acute biliary obstruction. Hepatomegaly is noted with features of portal venous hypertension. 7. We will get repeat CMP. Further treatment as per primary attending. Job ID: [id number]
[2019-08-17] MEDS: Raltegravir Potassium 400 MG TAB PO SCH ×2 (08:19→21:46)
[2019-08-17] MEDS: Polyethylene Glycol 3350 17 GM Packet PO SCH (08:19)
[2019-08-17] MEDS: predniSONE 20 MG TAB PO SCH (08:20)
[2019-08-17] MEDS: Aspirin 81 mg Enteric Coated Tablet PO SCH (08:20)
[2019-08-17] MEDS: Carvedilol 3.125 MG TAB PO SCH ×2 (08:20→21:47)
[2019-08-17] MEDS: hydrALAZINE 25 MG TAB PO SCH ×2 (08:20→21:47)
[2019-08-17] MEDS: Fludrocortisone Acetate 0.1 MG TAB PO SCH (10:17)
[2019-08-17] MEDS: HYDROcodone/Acetaminophen 5/325 mg Tablet PO PRN ×2 (10:46→18:15)
--- NOTE | 2019-08-17 11:33 | PDOC.HOSPP ---
- Subjective Encounter Date: 08/17/19 Encounter Time: 09:20 Subjective: Feels better..No complaint. - Objective Vital Signs & Weight: Vital Signs (12 hours) Temp Pulse Resp BP BP BP Pulse Ox 08/17/19 08:20 71 115/76 08/17/19 07:15 97.6 F 71 20 115/76 92 L 08/17/19 06:40 70 16 08/17/19 05:04 97.7 F 70 18 144/86 H 92 L 08/17/19 00:39 76 21 H 96 08/17/19 00:00 98.1 F 82 18 117/79 08/16/19 23:34 95 Weight Admit Weight 163 lb Weight 167 lb 12.348 oz Most Recent Monitor Data Heart Rate from ECG 77 NIBP 163/95 NIBP BP-Mean 117 Respiration from ECG 23 SpO2 92 I&O: 08/16/19 08/17/19 08/18/19 06:59 06:59 06:59 Intake Total 970 1700 Output Total 0 Balance 970 1700 Result Diagrams: 08/16/19 05:08 08/16/19 05:08 Additional Labs: Accuchecks 08/17/19 08/15/19 01:49 17:26 POC Glucose 103 106 Hospitalist ROS - Medication Medications: Active Medications Generic Name Dose Route Start Last Admin Trade Name Freq PRN Reason Stop Dose Admin Hydrocodone Bitart/Acetaminophen 1 tab 08/15/19 04:14 08/17/19 10:46 [place] 5/325 PO 1 tab Q4H PRN Administration Moderate Pain (4-6) Aspirin 81 mg 08/16/19 09:00 08/17/19 08:20 Ecotrin PO 81 mg DAILY ESME Administration Carvedilol 3.125 mg 08/16/19 21:00 08/17/19 08:20 Coreg PO 3.125 mg BID ESME Administration Etravirine 200 mg 08/15/19 08:00 08/17/19 10:17 Intelence PO 200 mg BID-PC ESME Administration Fludrocortisone Acetate 0.1 mg 08/15/19 09:00 08/17/19 10:17 Florinef PO 0.1 mg DAILY ESME Administration Hydralazine HCl 10 mg 08/15/19 04:17 08/16/19 16:59 Apresoline SLOW IVP 10 mg Q6H PRN Administration SBP GREATER THAN 160 Hydralazine HCl 25 mg 08/16/19 21:00 08/17/19 08:20 Apresoline PO 25 mg BID ESME Administration Vancomycin HCl 1 gm/ Device 200 mls @ 200 mls/hr 08/16/19 08:00 08/16/19 10: 47 IVPB 200 mls 0800 ESME Administration Cefepime HCl 1 gm/ Sodium 100 mls @ 200 mls/hr 08/16/19 00:00 08/17/19 01:51 Chloride IVPB 100 mls 0000 ESME Administration Ipratropium [place] 2.5 ml 08/16/19 13:00 08/17/19 06:40 Atrovent NEB 2.5 ml [id number] ESME Administration Melatonin 9 mg 08/17/19 21:00 08/16/19 23:57 Melatonin PO 9 mg HS ESME Administration Pantoprazole Sodium 40 mg 08/15/19 09:00 08/17/19 08:20 Protonix PO 40 mg DAILY ESME Administration Polyethylene Glycol 17 gm 08/15/19 09:00 08/17/19 08:19 Miralax PO 17 gm DAILY ESME Administration Prednisone 40 mg 08/17/19 08:00 08/17/19 08:20 Prednisone PO 08/21/19 08:01 40 mg QAM-WM ESME Administration Raltegravir 400 mg 08/15/19 09:00 08/17/19 08:19 Isentress PO 400 mg BID ESME Administration Zidovudine 100 mg 08/15/19 06:00 08/17/19 05:47 Retrovir PO 100 mg Q8HR ESME Administration - Exam General Appearance: NAD Neck: no JVD Heart: RRR Respiratory: CTAB Gastrointestinal: soft Extremities: no edema (+left AKA) Psychiatric: normal affect Hosp A/P (1) Lactic acid acidosis Code(s): E87.2 - ACIDOSIS Status: Acute (2) Acute on chronic respiratory failure with hypoxemia Code(s): J96.21 - ACUTE AND CHRONIC RESPIRATORY FAILURE WITH HYPOXIA Status: Acute (3) DM (diabetes mellitus) Code(s): E11.9 - TYPE 2 DIABETES MELLITUS WITHOUT COMPLICATIONS Status: Chronic Qualifiers: Diabetes mellitus type: type 2 Diabetes mellitus half-way insulin use: without adjunct faculty for medical terminology use Diabetes mellitus complication status: with kidney complications Diabetes mellitus complication detail: with chronic kidney disease Chronic kidney disease stage: on chronic dialysis Qualified Code(s) : E11.22 - Type 2 diabetes mellitus with diabetic chronic kidney disease; N18.6 - End stage renal disease; Z99.2 - Dependence on renal dialysis (4) ESRD (end stage renal disease) on dialysis Code(s): N18.6 - END STAGE RENAL DISEASE; Z99.2 - DEPENDENCE ON RENAL DIALYSIS Status: Chronic (5) HTN (hypertension) Code(s): I10 - ESSENTIAL (PRIMARY) HYPERTENSION Status: Chronic Qualifiers: Hypertension type: essential hypertension Qualified Code(s): I10 - Essential (primary) hypertension (6) Pneumonia Code(s): J18.9 - PNEUMONIA, UNSPECIFIED ORGANISM Status: Acute (7) Severe sepsis Code(s): A41.9 - SEPSIS, UNSPECIFIED ORGANISM; R65.20 - SEVERE SEPSIS WITHOUT SEPTIC SHOCK Status: Acute - Plan Overall condition is improving.. Continue current therapy. BxC is growing coagulase negative Staph
[2019-08-17 11:44] LABS: Anion Gap 18 mmol/L (10-20); BUN (Urea Nitrogen) 64 mg/dL (8.4-25.7); Calc. Creatinine Clearance 24 mL/min (70-130); Calcium 9.7 mg/dL (7.8-10.44); Carbon Dioxide 24 mmol/L (23-31); Chloride 96 mmol/L (98-107); Estimated GFR-MDRD 23; Glucose 120 mg/dL (80-115); Potassium 4.6 mmol/L (3.5-5.1); Sodium 133 mmol/L (136-145)
[2019-08-17 11:45] LABS: ALT (SGPT) 2345 U/L (8-55); AST (SGOT) 1085 U/L (5-34); Albumin 2.8 g/dL (3.4-4.8); Alkaline Phosphatase 162 U/L (40-110); Anion Gap 17 mmol/L (10-20); BUN (Urea Nitrogen) 65 mg/dL (8.4-25.7); Calc. Creatinine Clearance 24 mL/min (70-130); Calcium 9.3 mg/dL (7.8-10.44); Carbon Dioxide 24 mmol/L (23-31); Chloride 96 mmol/L (98-107); Estimated GFR-MDRD 22; Globulin 3.3 g/dL (2.4-3.5); Glucose 120 mg/dL (80-115); Potassium 4.8 mmol/L (3.5-5.1); Protein, Total 6.1 g/dL (5.8-8.1); Sodium 132 mmol/L (136-145)
[2019-08-17 11:50] LABS: #Lymphocytes 0.5 thou/uL (1.20-3.40); #Monocytes 0.4 thou/uL (0.11-0.59); #Neutrophils 4.6 thou/uL (1.40-6.50); %Basophils 0.1 % (0.0-1.0); %Eosinophils 0.1 % (0.0-10.0); %Lymphocytes 9.7 % (21.0-51.0); %Monocytes 7.6 % (0.0-10.0); %Neutrophils 82.5 % (42.0-75.0); Hemoglobin 10.8 g/dL (14.0-18.0); MDiff Complete? YES; Macrocytosis SLIGHT = 6-15 cells (100X) (0-5/hpf); Mean Corpuscular HGB CONC 31.4 g/dL (32.0-36.0); Mean Corpuscular Hemoglobin 32.9 pg (27.0-31.0); Mean Platelet Volume 10.3 fL (7.4-10.4); Platelet Count 114 thou/uL (130-400); Platelet Morphology Comment Appears Decreased; RBC Distribution Width 17.3 % (11.5-14.5); Red Blood Cell (RBC) Count 3.28 mill/uL (4.70-6.10); White Blood Cell (WBC) Count 5.6 thou/uL (4.8-10.8)
[2019-08-17 12:00] LABS: ALT (SGPT) 2356 U/L (8-55); AST (SGOT) 1082 U/L (5-34); Albumin 2.8 g/dL (3.4-4.8); Alkaline Phosphatase 162 U/L (40-110); Bilirubin, Direct 0.6 mg/dL (0.1-0.3); Protein, Total 6.1 g/dL (5.8-8.1); Vancomycin, Trough 14.3 ug/mL
[2019-08-17] MEDS ORDERED: Vancomycin HCl 1.25 GM in Sodium Chloride 0.9% 250 ML 250 ML IVPB SCH (12:15)
[2019-08-17] MEDS ORDERED: Vancomycin HCl 1 GM in Premix Bag 1 BAG IVPB SCH (12:15)
[2019-08-17] MEDS ORDERED: Vancomycin HCl 500 MG in Sodium Chloride 0.9% 100 ML IVPB SCH (12:15)
[2019-08-17] MEDS ORDERED: HOLD VANCOMYCIN FOR LEVEL >20 FS SCH (12:15)
[2019-08-17] MEDS ORDERED: Vancomycin HCl 750 MG in Sodium Chloride 0.9% 250 ML 250 ML IVPB SCH (12:15)
[2019-08-17] MEDS: Vancomycin HCl 1 GM in Premix Bag 1 BAG IVPB SCH (15:48)
--- NOTE | 2019-08-17 18:38 | PRG ---
DATE OF SERVICE: 08/17/2019 SERVICE: Pulmonary Medicine. INTERVAL HISTORY: The patient is doing fine from respiratory standpoint. He has been weaned down to 2 L nasal cannula, which is what he wears at home. Denies any current chest discomfort, nausea, or vomiting. Otherwise, there has been no interval change to his condition. He indicates that he is a little bit weak. He also suggests that his back side hurts a touch. He is requesting me to turn more often. PHYSICAL EXAMINATION: VITAL SIGNS: Afebrile, pulse 75, blood pressure 150/92, respirations 20, saturation 92%, currently on 2 L nasal cannula. GENERAL: The patient is awake and alert, in no apparent distress. LUNGS: Decent air entry. Dependent crackles are minimal. HEART: Normal rate, regular. ABDOMEN: Soft, nontender, nondistended. Bowel sounds are positive. MUSCULOSKELETAL: No cyanosis or clubbing. There is no pitting. NEUROLOGIC: Grossly nonfocal. LABORATORY DATA: WBC 5.6, hemoglobin 10.8, platelets 114,000. Creatinine 3.39. Basic metabolic profile is otherwise unremarkable. AST and ALT are significantly downtrending, alkaline phosphatase 162. Coag-negative staph is growing in 1 out of 2 blood cultures. IMAGING DATA: 1. Abdominal ultrasound demonstrates no evidence of biliary obstruction. Hepatomegaly is present. There is portal vein distention suggestive of portal vein hypertension, but no reversal flow is present. Spleen is not enlarged. 2. Echocardiogram shows normal ejection fraction with severe diastolic dysfunction and pulmonary hypertension. ASSESSMENT: 1. Acute hypoxic and hypercapnic respiratory failure. 2. Healthcare-associated pneumonia. 3. End-stage renal disease. 4. Metabolic encephalopathy, resolved. 5. Severe sepsis. DISCUSSION AND PLAN: The patient's respiratory status is back to baseline. At this point, he has no further requirements for inpatient Pulmonary or Critical Care opinion, and I will sign off. Please call with additional questions or concerns through time. I will request that our staff turns him every 2 hours. Job ID: [id number]
[2019-08-17] MEDS: Melatonin 3 MG TAB PO SCH (21:47)
[2019-08-18] MEDS: Ipratropium Bromide 2.5 ml Neb NEB SCH ×5 (00:02→22:29)
[2019-08-18 06:13] LABS: Hemoglobin 11.4 g/dL (14.0-18.0); Mean Corpuscular HGB CONC 31.4 g/dL (32.0-36.0); Mean Corpuscular Hemoglobin 33.8 pg (27.0-31.0); Mean Platelet Volume 10.1 fL (7.4-10.4); Platelet Count 120 thou/uL (130-400); RBC Distribution Width 17.2 % (11.5-14.5); Red Blood Cell (RBC) Count 3.37 mill/uL (4.70-6.10)
[2019-08-18 06:30] LABS: ALT (SGPT) 2076 U/L (8-55); AST (SGOT) 658 U/L (5-34); Alkaline Phosphatase 163 U/L (40-110); Anion Gap 15 mmol/L (10-20); BUN (Urea Nitrogen) 44 mg/dL (8.4-25.7); Bilirubin, Direct 0.8 mg/dL (0.1-0.3); Bilirubin, Total 1.2 mg/dL (0.2-1.2); Calc. Creatinine Clearance 32 mL/min (70-130); Calcium 9.9 mg/dL (7.8-10.44); Carbon Dioxide 26 mmol/L (23-31); Chloride 96 mmol/L (98-107); Estimated GFR-MDRD 31; Globulin 3.8 g/dL (2.4-3.5); Glucose 97 mg/dL (80-115); Potassium 4.2 mmol/L (3.5-5.1); Protein, Total 6.8 g/dL (5.8-8.1); Sodium 133 mmol/L (136-145)
[2019-08-18 06:50] LABS: Band 1 % (5-11); Lymphocytes 17 % (21-51); MDiff Complete? YES; Macrocytosis SLIGHT = 6-15 cells (100X) (0-5/hpf); Monocytes 9 % (0-10); Neutrophil 73 % (42-75); Nucleated RBC 2 % (0); White Blood Cell (WBC) Count 5.3 thou/uL (4.8-10.8)
[2019-08-18] MEDS: predniSONE 20 MG TAB PO SCH (08:17)
[2019-08-18] MEDS: Raltegravir Potassium 400 MG TAB PO SCH ×2 (08:17→21:11)
[2019-08-18] MEDS: Aspirin 81 mg Enteric Coated Tablet PO SCH (08:17)
[2019-08-18] MEDS: Carvedilol 3.125 MG TAB PO SCH ×2 (08:17→20:59)
[2019-08-18] MEDS: hydrALAZINE 25 MG TAB PO SCH ×2 (08:18→20:59)
[2019-08-18] MEDS: Polyethylene Glycol 3350 17 GM Packet PO SCH ×2 (08:19→21:00)
[2019-08-18] MEDS: HYDROcodone/Acetaminophen 5/325 mg Tablet PO PRN ×4 (08:22→21:10)
--- NOTE | 2019-08-18 10:09 | PDOC.HOSPP ---
- Subjective Encounter Date: 08/18/19 Encounter Time: 09:35 Subjective: No new complaint.. Generalized malaise. - Objective Vital Signs & Weight: Vital Signs (12 hours) Temp Pulse Resp BP BP Pulse Ox 08/18/19 08:18 69 142/90 H 08/18/19 08:01 98.0 F 69 18 142/90 H 92 L 08/18/19 06:58 97 08/18/19 06:57 67 12 08/18/19 04:00 97.7 F 81 18 127/84 97 08/18/19 01:53 82 20 94 L 08/18/19 00:02 95 08/17/19 23:56 97.8 F 68 18 153/91 H 95 08/17/19 23:07 71 22 H 96 Weight Admit Weight 163 lb Weight 167 lb 12.348 oz Most Recent Monitor Data Heart Rate from ECG 77 NIBP 163/95 NIBP BP-Mean 117 Respiration from ECG 23 SpO2 92 I&O: 08/17/19 08/18/19 08/19/19 06:59 06:59 06:59 Intake Total 1700 1430 Output Total 0 Balance 1700 1430 Result Diagrams: 08/18/19 05:53 08/18/19 05:53 Hospitalist ROS - Medication Medications: Active Medications Generic Name Dose Route Start Last Admin Trade Name Freq PRN Reason Stop Dose Admin Hydrocodone Bitart/Acetaminophen 1 tab 08/15/19 04:14 08/18/19 08:22 [place] 5/325 PO 1 tab Q4H PRN Administration Moderate Pain (4-6) Aspirin 81 mg 08/16/19 09:00 08/18/19 08:17 Ecotrin PO 81 mg DAILY ESME Administration Carvedilol 3.125 mg 08/16/19 21:00 08/18/19 08:17 Coreg PO 3.125 mg BID ESME Administration Etravirine 200 mg 08/15/19 08:00 08/17/19 18:08 Intelence PO 200 mg BID-PC ESME Administration Fludrocortisone Acetate 0.1 mg 08/15/19 09:00 08/17/19 10:17 Florinef PO 0.1 mg DAILY ESME Administration Hydralazine HCl 10 mg 08/15/19 04:17 08/16/19 16:59 Apresoline SLOW IVP 10 mg Q6H PRN Administration SBP GREATER THAN 160 Hydralazine HCl 25 mg 08/16/19 21:00 08/18/19 08:18 Apresoline PO 25 mg BID ESME Administration Cefepime HCl 1 gm/ Sodium 100 mls @ 200 mls/hr 08/16/19 00:00 08/17/19 23:59 Chloride IVPB 100 mls 0000 ESME Administration Vancomycin HCl 750 mg/ Sodium 250 mls @ 250 mls/hr 08/17/19 12:15 08/17/19 15 :36 Chloride IVPB 250 mls WILLCALL ESME Administration Ipratropium [place] 2.5 ml 08/16/19 13:00 08/18/19 06:57 Atrovent NEB 2.5 ml [id number] ESME Administration Melatonin 9 mg 08/17/19 21:00 08/17/19 21:47 Melatonin PO 9 mg HS ESME Administration Pantoprazole Sodium 40 mg 08/15/19 09:00 08/18/19 08:17 Protonix PO 40 mg DAILY ESME Administration Polyethylene Glycol 17 gm 08/15/19 09:00 08/18/19 08:19 Miralax PO 17 gm DAILY ESME Administration Prednisone 40 mg 08/17/19 08:00 08/18/19 08:17 Prednisone PO 08/21/19 08:01 40 mg QAM-WM ESME Administration Raltegravir 400 mg 08/15/19 09:00 08/18/19 08:17 Isentress PO 400 mg BID ESME Administration Zidovudine 100 mg 08/15/19 06:00 08/18/19 05:21 Retrovir PO 100 mg Q8HR ESME Administration - Exam General Appearance: NAD Neck: no JVD Heart: RRR Respiratory: CTAB Gastrointestinal: soft Extremities: no edema (s/p left AKA.) Hosp A/P (1) Lactic acid acidosis Code(s): E87.2 - ACIDOSIS Status: Acute (2) Acute on chronic respiratory failure with hypoxemia Code(s): J96.21 - ACUTE AND CHRONIC RESPIRATORY FAILURE WITH HYPOXIA Status: Acute (3) DM (diabetes mellitus) Code(s): E11.9 - TYPE 2 DIABETES MELLITUS WITHOUT COMPLICATIONS Status: Chronic Qualifiers: Diabetes mellitus type: type 2 Diabetes mellitus snf insulin use: without intermodal customer service use Diabetes mellitus complication status: with kidney complications Diabetes mellitus complication detail: with chronic kidney disease Chronic kidney disease stage: on chronic dialysis Qualified Code(s) : E11.22 - Type 2 diabetes mellitus with diabetic chronic kidney disease; N18.6 - End stage renal disease; Z99.2 - Dependence on renal dialysis (4) ESRD (end stage renal disease) on dialysis Code(s): N18.6 - END STAGE RENAL DISEASE; Z99.2 - DEPENDENCE ON RENAL DIALYSIS Status: Chronic (5) HTN (hypertension) Code(s): I10 - ESSENTIAL (PRIMARY) HYPERTENSION Status: Chronic Qualifiers: Hypertension type: essential hypertension Qualified Code(s): I10 - Essential (primary) hypertension (6) Pneumonia Code(s): J18.9 - PNEUMONIA, UNSPECIFIED ORGANISM Status: Acute (7) Severe sepsis Code(s): A41.9 - SEPSIS, UNSPECIFIED ORGANISM; R65.20 - SEVERE SEPSIS WITHOUT SEPTIC SHOCK Status: Acute - Plan Overall condition is improving.. Continue current therapy. BxC is growing coagulase negative Staph Possible discharge soon
[2019-08-18] MEDS: Fludrocortisone Acetate 0.1 MG TAB PO SCH (11:12)
--- NOTE | 2019-08-18 17:21 | PRG ---
DATE OF SERVICE: 08/18/2019 SERVICE: Nephrology. SUBJECTIVE: A 63-year-old with multiple comorbidities including end-stage renal disease, on hemodialysis, admitted due to acute respiratory failure with hypoxia and severe sepsis/septic shock due to healthcare-associated pneumonia. Nephrology is following the patient for end-stage renal disease management. The patient complains of feeling unwell, but was unable to pinpoint exactly what. Appetite is great. He denied nausea or vomiting. Continued to complain of right shoulder pain, but denied fever or chills. Last hemodialysis was yesterday. OBJECTIVE: VITAL SIGNS: Temperature 98.0, pulse 69, respiratory rate 18, SpO2 of 92% on 3 L nasal cannula, and blood pressure is 142/90. GENERAL: Chronically ill-looking elderly male patient in no obvious distress. Fatigued, but afebrile and anicteric. HEENT: Normocephalic, atraumatic. Oral mucosa is moist. CARDIOVASCULAR: Regular rhythm and rate. Systolic murmur noted. RESPIRATORY: Fair air entry bilaterally with few transmitted breath sounds. Very crackles. No rhonchi or use of accessory muscles appreciated. GI: Full, soft, nontender, nondistended with normal bowel sounds. EXTREMITIES: Left AKA and left upper limb AV fistula with aneurysmal dilatation noted. MYSTERY SHOPPER: Conscious, alert, oriented x3 with appropriate mental status. Some memory lapses noted. DIAGNOSTIC DATA: CBC showed WBC count of 5.3, hemoglobin of 11.4, MCV of 108, platelets of 120. CMP showed sodium 133, potassium 4.2, chloride 96, CO2 of 26, BUN 44, creatinine 2.57, glucose 97, calcium 9.9, total bilirubin 1.2, direct 0.8. AST 658, ALT 2076, alkaline phosphatase 163, total protein 6.8, albumin 3.0, and globulin 3.8. ASSESSMENT: 1. End-stage renal disease, on hemodialysis. 2. Septic shock due to healthcare-associated pneumonia. 3. Acute respiratory failure with hypoxia and hypercapnia. 4. Hypertension: Blood pressure control is acceptable given the patient came in with hypotension. 5. Hypotension: Resolved. 6. Anemia in chronic kidney disease, stable. PLAN: 1. We will continue hemodialysis according to outpatient schedule of TTS. 2. We will start the patient on stool softener given constipation. 3. Other treatment as per primary attending. 4. We will continue current antihypertensives and monitor closely with a view to adjusting dose to get adequate BP control. Job ID: [id number]
[2019-08-18] MEDS: Melatonin 3 MG TAB PO SCH (20:59)
[2019-08-19] MEDS: Cefepime 1 GM in Sodium Chloride 0.9% 100 ML IVPB SCH (00:27)
[2019-08-19] MEDS: HYDROcodone/Acetaminophen 5/325 mg Tablet PO PRN ×3 (01:44→20:42)
[2019-08-19] MEDS: Ipratropium Bromide 2.5 ml Neb NEB SCH ×3 (07:18→19:39)
[2019-08-19] MEDS: Polyethylene Glycol 3350 17 GM Packet PO SCH ×2 (08:32→20:44)
[2019-08-19] MEDS: Aspirin 81 mg Enteric Coated Tablet PO SCH (08:32)
[2019-08-19] MEDS: Carvedilol 3.125 MG TAB PO SCH ×2 (08:35→20:42)
[2019-08-19] MEDS: hydrALAZINE 25 MG TAB PO SCH ×2 (08:35→20:42)
[2019-08-19] MEDS: predniSONE 20 MG TAB PO SCH (08:35)
[2019-08-19] MEDS: Raltegravir Potassium 400 MG TAB PO SCH ×2 (08:44→20:43)
[2019-08-19] MEDS: Fludrocortisone Acetate 0.1 MG TAB PO SCH (08:44)
--- NOTE | 2019-08-19 12:12 | PRG ---
DATE OF SERVICE: 08/19/2019 SERVICE: Nephrology. SUBJECTIVE: A 63-year-old male with end-stage renal disease, admitted due to septic shock, acute respiratory failure, and hyperkalemia. The patient is clinically improved. Denied any new complaint. No chest pain, nausea, vomiting, or abdominal pain. OBJECTIVE: VITAL SIGNS: Temperature 97.9, pulse 71, respiratory rate 20, SpO2 of 91% on room air, and blood pressure is 148/90. GENERAL: Chronically ill-looking male, in no obvious distress. Afebrile. Anicteric. Acyanotic. HEENT: Normocephalic and atraumatic. CARDIOVASCULAR: Regular rhythm and rate with normal heart sounds 1 and 2. Systolic murmur noted. RESPIRATORY: Fair air entry bilaterally with few bibasilar crackles posteriorly. GI: Full, soft, nontender, and nondistended with normal bowel sounds. EXTREMITIES: Left AKA as well as mild right upper arm edema noted. Left upper limb AV fistula with aneurysmal dilatation noted. SUPERVISOR TOY ASSEMBLY: Conscious, alert, and oriented x3 with appropriate mental status. DIAGNOSTIC DATA: No lab draw today. ASSESSMENT: 1. End-stage renal disease, on hemodialysis. Last hemodialysis was 2 days ago on August 16, 2018. 2. Septic shock: Improved. Blood pressures have improved. 3. Hypertension: Control is acceptable. 4. Hyperkalemia: Resolved. 5. Volume status: The patient is mildly hypervolemic. However, he is on room air. 6. Healthcare-associated pneumonia, on antibiotics. PLAN: 1. Continue current treatment. Continue the renal diet. 2. We will plan on dialyzing the patient tomorrow. We will repeat CMP in the morning. Job ID: [id number]
--- NOTE | 2019-08-19 20:23 | PDOC.HOSPP ---
- Subjective Encounter Date: 08/19/19 Encounter Time: 11:00 Subjective: The patient continues to report shortness of breath while laying down., He is on 2L of oxygen at home. Patient is complaining of diffuse body aches. Also complains of an ulcer on his decubitus area that is sore - Objective Vital Signs & Weight: Vital Signs (12 hours) Temp Pulse Resp BP BP Pulse Ox 08/19/19 19:56 98.2 F 83 20 154/98 H 90 L 08/19/19 14:18 70 18 91 L 08/19/19 08:35 71 148/90 H Weight Admit Weight 163 lb Weight 167 lb 12.348 oz Most Recent Monitor Data Heart Rate from ECG 77 NIBP 163/95 NIBP BP-Mean 117 Respiration from ECG 23 SpO2 92 I&O: 08/18/19 08/19/19 08/20/19 06:59 06:59 06:59 Intake Total 1430 Output Total 0 Balance 1430 Result Diagrams: 08/18/19 05:53 08/18/19 05:53 Hospitalist ROS - Review of Systems Constitutional: denies: fever, chills - Medication Medications: Active Medications Generic Name Dose Route Start Last Admin Trade Name Freq PRN Reason Stop Dose Admin Hydrocodone Bitart/Acetaminophen 1 tab 08/15/19 04:14 08/19/19 08:42 [place] 5/325 PO 1 tab Q4H PRN Administration Moderate Pain (4-6) Aspirin 81 mg 08/16/19 09:00 08/19/19 08:32 Ecotrin PO 81 mg DAILY ESME Administration Carvedilol 3.125 mg 08/16/19 21:00 08/19/19 08:35 Coreg PO 3.125 mg BID ESME Administration Etravirine 200 mg 08/15/19 08:00 08/19/19 17:36 [place] PO 200 mg BID-PC ESME Administration Fludrocortisone Acetate 0.1 mg 08/15/19 09:00 08/19/19 08:44 Florinef PO 0.1 mg DAILY ESME Administration Hydralazine HCl 10 mg 08/15/19 04:17 08/16/19 16:59 Apresoline SLOW IVP 10 mg Q6H PRN Administration SBP GREATER THAN 160 Hydralazine HCl 25 mg 08/16/19 21:00 08/19/19 08:35 Apresoline PO 25 mg BID ESME Administration Cefepime HCl 1 gm/ Sodium 100 mls @ 200 mls/hr 08/16/19 00:00 08/19/19 00:27 Chloride IVPB 100 mls 0000 ESME Administration Vancomycin HCl 750 mg/ Sodium 250 mls @ 250 mls/hr 08/17/19 12:15 08/17/19 15 :36 Chloride IVPB 250 mls WILLCALL ESME Administration Ipratropium [place] 2.5 ml 08/16/19 13:00 08/19/19 19:39 Atrovent NEB 2.5 ml [id number] ESME Administration Melatonin 9 mg 08/17/19 21:00 08/18/19 20:59 Melatonin PO 9 mg HS ESME Administration Pantoprazole Sodium 40 mg 08/15/19 09:00 08/19/19 08:35 Protonix PO 40 mg DAILY ESME Administration Polyethylene Glycol 17 gm 08/18/19 21:00 08/19/19 08:32 Miralax PO 17 gm BID ESME Administration Prednisone 40 mg 08/17/19 08:00 08/19/19 08:35 Prednisone PO 08/21/19 08:01 40 mg QAM-WM ESME Administration Raltegravir 400 mg 08/15/19 09:00 08/19/19 08:44 Isentress PO 400 mg BID ESME Administration Zidovudine 100 mg 08/15/19 06:00 08/19/19 17:36 Retrovir PO 100 mg Q8HR ESME Administration - Exam General Appearance: NAD, awake alert Eye: PERRL, anicteric sclera ENT: normocephalic atraumatic, no oropharyngeal lesions Neck: supple, symmetric, no JVD, no thyromegaly Heart: RRR, no murmur, no gallops, no rubs Respiratory: CTAB, no wheezes, no rales, no ronchi Gastrointestinal: soft, non-tender, non-distended, normal bowel sounds Extremities: no cyanosis, no clubbing, no edema Skin: normal turgor, no lesions, no rashes Skin - other findings: stage III ulcer decubitus area Neurological: cranial nerve grossly intact, normal sensation to touch, no focal deficits, no new deficit Musculoskeletal: normal tone, normal strength, no muscle wasting Psychiatric: normal affect, normal behavior, A&O x 3 Hosp A/P - Plan This is a 63 year old male patient with HIV who presented with shortness of breath, treated for bilateral pneumonia #Bilateral pneumonia #DiastoliC CHF - on IV vancomycin and cefepime - blood culture shows 1/2 coag negative staph - repeat chest X ray - ECHO shows grade 2/3 diastolic dysfunction, severe TR. Patient does not urinate at baseline, therefore treat any pulm edema with dialysis ESRD - plan for dialysis tomorrow Hypertension - hydralazine Stage III sacral ulcer - appreciate wound recs Dispo: possible d/c in am
[2019-08-19] MEDS: Melatonin 3 MG TAB PO SCH (20:42)
[2019-08-19] MEDS: Zolpidem Tartrate 5 MG TAB PO PRN (21:53)
--- NOTE | 2019-08-19 21:54 | RAD ---
PORTABLE AP CHEST X-RAY: HISTORY: Orthopnea. COMPARISON: 08/14/2019 FINDINGS: The cardiac silhouette remains enlarged. There is suboptimal evaluation of the left lung base. Left p leural effusion, atelectasis or infiltrate cannot be entirely excluded. There is mild volume loss pre sent at the right lung base. Pulmonary vasculature is within normal limits. There is slight increased patchy density in the left perihilar region, which may be related to superimposition of structures b ut follow-up chest x-ray is recommended to exclude the possibility of developing pneumonia. No other interval change. IMPRESSION: 1. Cardiomegaly without overt congestive heart failure. 2. Suggestion of parenchymal density at the left lung base, which could be related to left pleural ef fusion and atelectasis or possibly infiltrate. Follow-up PA and lateral chest x-ray is recommended. 3. Atelectasis right lung base. 4. Increased density in the left mid lung zone, which could be related to superimposition of structur es and vasculature; however, this can also be re-evaluated on follow-up chest x-ray. POS: [facility]
[2019-08-20] MEDS: Cefepime 1 GM in Sodium Chloride 0.9% 100 ML IVPB SCH (00:47)
[2019-08-20] MEDS: Ipratropium Bromide 2.5 ml Neb NEB SCH ×4 (00:47→18:53)
[2019-08-20] MEDS ORDERED: Ipratropium Bromide 2.5 ml Neb ONE (06:35)
[2019-08-20] MEDS: predniSONE 20 MG TAB PO SCH (07:43)
[2019-08-20] MEDS: hydrALAZINE 25 MG TAB PO SCH ×2 (07:43→20:18)
[2019-08-20] MEDS: Aspirin 81 mg Enteric Coated Tablet PO SCH (07:43)
[2019-08-20] MEDS: Raltegravir Potassium 400 MG TAB PO SCH ×2 (07:44→20:18)
[2019-08-20] MEDS: Carvedilol 3.125 MG TAB PO SCH ×2 (07:44→20:18)
[2019-08-20] MEDS: Fludrocortisone Acetate 0.1 MG TAB PO SCH (07:46)
[2019-08-20] MEDS: Polyethylene Glycol 3350 17 GM Packet PO SCH ×2 (07:51→20:19)
[2019-08-20 08:52] LABS: Hemoglobin 10.7 g/dL (14.0-18.0); Mean Corpuscular HGB CONC 32.9 g/dL (32.0-36.0); Mean Corpuscular Hemoglobin 34.5 pg (27.0-31.0); Mean Platelet Volume 9.9 fL (7.4-10.4); Platelet Count 127 thou/uL (130-400); Red Blood Cell (RBC) Count 3.12 mill/uL (4.70-6.10); White Blood Cell (WBC) Count 6.5 thou/uL (4.8-10.8)
[2019-08-20 09:07] LABS: Anion Gap 18 mmol/L (10-20); BUN (Urea Nitrogen) 73 mg/dL (8.4-25.7); Calc. Creatinine Clearance 22 mL/min (70-130); Calcium 8.6 mg/dL (7.8-10.44); Carbon Dioxide 24 mmol/L (23-31); Chloride 95 mmol/L (98-107); Estimated GFR-MDRD 20; Glucose 107 mg/dL (80-115); Potassium 5.2 mmol/L (3.5-5.1); Sodium 132 mmol/L (136-145)
[2019-08-20 09:08] LABS: ALT (SGPT) 989 U/L (8-55); AST (SGOT) 134 U/L (5-34); Albumin 2.8 g/dL (3.4-4.8); Alkaline Phosphatase 180 U/L (40-110); Bilirubin, Direct 0.6 mg/dL (0.1-0.3)
[2019-08-20 09:21] LABS: Vancomycin, Random 15.5 ug/mL (See Comment)
--- NOTE | 2019-08-20 13:26 | CT ---
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 The heart remains enlarged, predominantly on the basis of right ventricular enlargement. The heart, p ericardium and great vessels are suboptimally evaluated in the absence of IV contrast material. Vascular calcification including coronary calcium is noted. The airway appears patent and of normal caliber. There is no evidence for thoracic lymph node enlarge ment. There are small amounts of dependent bilateral pleural fluid with adjacent atelectasis and/or pneumon ia. There is no amilcar pulmonary vascular congestion evident. The lungs appear otherwise clear. There is no evidence for pneumothorax. The visualized portions of the upper abdomen demonstrate no significant detrimental change with respe ct to 07/13/2019. The osseous structures demonstrate no concerning lytic or blastic lesions. IMPRESSION: 1. Cardiomegaly. 2. Bilateral pleural fluid with adjacent atelectasis and/or infiltrate.
--- NOTE | 2019-08-20 16:41 | PRG ---
DATE OF SERVICE: 08/20/2019 SERVICE: Nephrology. SUBJECTIVE: A 63-year-old male seen in followup for end-stage renal disease management. The patient was admitted due to septic shock and acute respiratory failure with hypoxia or due to pneumonia. Clinically improved. The patient was seen at the dialysis unit. Denied nausea, vomiting, or fever. OBJECTIVE: VITAL SIGNS: Temperature 97.9, pulse 74, respiratory rate 20, SpO2 100 on 2 L nasal cannula, blood pressure is 159/96. GENERAL: Chronically ill-looking male in no distress. Afebrile. Anicteric. Acyanotic. HEENT: Normocephalic atraumatic. CARDIOVASCULAR: Regular rhythm and rate with normal heart sounds 1 and 2. Systolic murmur noted. RESPIRATORY: Fair air entry bilaterally with some transmitted breath sounds as well as few bibasilar crackles. GI: Full, soft, nontender, nondistended with normal bowel sounds. EXTREMITIES: Edema of bilateral elbows noted as well as left forearm AV fistula with aneurysmal dilatation. WAXER: Conscious, alert, and oriented x3 with appropriate mental status. DIAGNOSTIC DATA: CBC showed WBC count of 6.5, hemoglobin of 10.7, platelets of 127. BMP showed sodium 132, potassium 5.2, chloride 95, CO2 of 22, BUN 73, creatinine 3.73, calcium 8.6. ASSESSMENT: 1. Hyperkalemia: Due to end-stage renal disease. 2. End-stage renal disease, on hemodialysis, Monday, , and Monday. 3. Mild to moderate volume overload. 4. Anemia in chronic kidney disease. 5. Hypertension: Control is acceptable. 6. Septic shock, resolved. 7. Acute respiratory failure with hypoxia and hypercarbia due to healthcare-associated pneumonia. Improved. Getting antibiotics. PLAN: We will dialyze the patient today for 4 hours with 2K bath given hyperkalemia. UF as tolerated will be provided. We will continue to monitor electrolytes and hemoglobin and address as needed. If medically appropriate, the patient can be discharged from Nephrology point of view. The patient need to continue outpatient dialysis at the dialysis unit using his usual dialysis schedule. Job ID: [id number]
--- NOTE | 2019-08-20 18:02 | PDOC.HOSPP ---
- Subjective Encounter Date: 08/20/19 Encounter Time: 15:30 Subjective: The patient reports feeling lethargic today, he hasn't eaten all day, states he was unable to find the call [facility] to get a hold of his nurse. He had dialysis today. FEels short of breath but better. NO chest pain . - Objective Vital Signs & Weight: Vital Signs (12 hours) Temp Pulse Resp BP Pulse Ox 08/20/19 13:27 78 20 92 L 08/20/19 08:41 97.9 F 74 20 159/96 H 100 08/20/19 08:00 100 08/20/19 07:43 77 Weight Admit Weight 163 lb Weight 167 lb 12.348 oz Most Recent Monitor Data Heart Rate from ECG 77 NIBP 163/95 NIBP BP-Mean 117 Respiration from ECG 23 SpO2 92 I&O: 08/19/19 08/20/19 08/21/19 06:59 06:59 06:59 Intake Total 240 Balance 240 Result Diagrams: 08/20/19 08:25 08/20/19 08:25 Hospitalist ROS - Review of Systems Constitutional: denies: fever, chills Cardiovascular: denies: chest pain, palpitations - Medication Medications: Active Medications Generic Name Dose Route Start Last Admin Trade Name Freq PRN Reason Stop Dose Admin Hydrocodone Bitart/Acetaminophen 1 tab 08/15/19 04:14 08/19/19 20:42 [place] 5/325 PO 1 tab Q4H PRN Administration Moderate Pain (4-6) Aspirin 81 mg 08/16/19 09:00 08/20/19 07:43 Ecotrin PO 81 mg DAILY ESME Administration Carvedilol 3.125 mg 08/16/19 21:00 08/20/19 07:44 Coreg PO 3.125 mg BID ESME Administration Etravirine 200 mg 08/15/19 08:00 08/20/19 17:34 Intelence PO 200 mg BID-PC ESME Administration Fludrocortisone Acetate 0.1 mg 08/15/19 09:00 08/20/19 07:46 Florinef PO 0.1 mg DAILY ESME Administration Hydralazine HCl 10 mg 08/15/19 04:17 08/16/19 16:59 Apresoline SLOW IVP 10 mg Q6H PRN Administration SBP GREATER THAN 160 Hydralazine HCl 25 mg 08/16/19 21:00 08/20/19 07:43 Apresoline PO 25 mg BID ESME Administration Cefepime HCl 1 gm/ Sodium 100 mls @ 200 mls/hr 08/16/19 00:00 08/20/19 00:47 Chloride IVPB 100 mls 0000 ESME Administration Vancomycin HCl 1 gm/ Device 200 mls @ 200 mls/hr 08/17/19 12:15 08/20/19 11: 33 IVPB 200 mls WILLCALL ESME Administration Vancomycin HCl 750 mg/ Sodium 250 mls @ 250 mls/hr 08/17/19 12:15 08/17/19 15 :36 Chloride IVPB 250 mls WILLCALL ESME Administration Ipratropium [place] 2.5 ml 08/16/19 13:00 08/20/19 13:27 Atrovent NEB 2.5 ml [id number] ESME Administration Melatonin 9 mg 08/17/19 21:00 08/19/19 20:42 Melatonin PO 9 mg HS ESME Administration Pantoprazole Sodium 40 mg 08/15/19 09:00 08/20/19 07:44 Protonix PO 40 mg DAILY ESME Administration Polyethylene Glycol 17 gm 08/18/19 21:00 08/20/19 07:51 Miralax PO 17 gm BID ESME Administration Prednisone 40 mg 08/17/19 08:00 08/20/19 07:43 Prednisone PO 08/21/19 08:01 40 mg QAM-WM ESME Administration Raltegravir 400 mg 08/15/19 09:00 08/20/19 07:44 Isentress PO 400 mg BID ESME Administration Zidovudine 100 mg 08/15/19 06:00 08/20/19 07:44 Retrovir PO 100 mg Q8HR ESME Administration Zolpidem Tartrate 5 mg 08/19/19 21:36 08/19/19 21:53 Ambien PO 5 mg HSPRN PRN Administration Insomnia - Exam General Appearance: NAD, awake alert Eye: PERRL, anicteric sclera ENT: normocephalic atraumatic, no oropharyngeal lesions Neck: supple, symmetric, no JVD, no thyromegaly Heart: RRR, no murmur, no gallops, no rubs Respiratory: CTAB, no wheezes, no rales, no ronchi Respiratory - other findings: on 2L oxygen Gastrointestinal: soft, non-tender, non-distended, normal bowel sounds Extremities: no cyanosis, no clubbing, no edema Skin: normal turgor, no lesions, no rashes Hosp A/P - Plan CT chest: cardiomegaly, bilateral pleural fluid with adjacent atelectasis and/ or infiltrate This is a 63 year old male patient with HIV who presented with shortness of breath, treated for bilateral pneumonia #Acute hypoxic respiratory failure from bilateral pneumonia #Severe pulmonary hypertension with elevated troponin #DiastoliC CHF - on IV vancomycin and cefepime, continue day 4 for now. Currently back to baseline oxygen requirement - blood culture shows 1/2 coag negative staph - CT chest showing bilateral pleural fluid with possible infiltrate. He received dialysis today. No significant effusion to tap - ECHO shows grade 2/3 diastolic dysfunction, severe TR, elevated RV systolic pressure and reduced RV function. Will check V/Q scan to rule out pulmonary embolism. Appreciate pulm input - Troponins were elevated, will consult Dr. Lawrence in am ESRD -s/p dialysis today Hypertension - hydralazine Stage III sacral ulcer - appreciate wound recs HIV - continue outpatient meds Dispo: will d/c in am
[2019-08-20] MEDS: Melatonin 3 MG TAB PO SCH (20:18)
[2019-08-20] MEDS: Zolpidem Tartrate 5 MG TAB PO PRN (20:18)
[2019-08-20] MEDS: HYDROcodone/Acetaminophen 5/325 mg Tablet PO PRN (23:19)
[2019-08-21] MEDS: Ipratropium Bromide 2.5 ml Neb NEB SCH ×4 (00:16→19:08)
[2019-08-21] MEDS: Cefepime 1 GM in Sodium Chloride 0.9% 100 ML IVPB SCH ×2 (01:15→23:58)
[2019-08-21] MEDS: HYDROcodone/Acetaminophen 5/325 mg Tablet PO PRN ×2 (03:17→17:50)
[2019-08-21] MEDS ORDERED: Ibuprofen 600 MG TAB PO SCH (03:45)
[2019-08-21 05:47] LABS: Mean Corpuscular HGB CONC 30.7 g/dL (32.0-36.0); Mean Corpuscular Hemoglobin 32.5 pg (27.0-31.0); Mean Platelet Volume 10.6 fL (7.4-10.4); Platelet Count 140 thou/uL (130-400); RBC Distribution Width 18.9 % (11.5-14.5); Red Blood Cell (RBC) Count 3.37 mill/uL (4.70-6.10); White Blood Cell (WBC) Count 7.7 thou/uL (4.8-10.8)
[2019-08-21] MEDS ORDERED: oxyCODONE/Acetaminophen 5 mg/325 mg Tablet PO SCH (06:00)
[2019-08-21 06:04] LABS: Anion Gap 18 mmol/L (10-20); BUN (Urea Nitrogen) 46 mg/dL (8.4-25.7); Calc. Creatinine Clearance 27 mL/min (70-130); Calcium 8.9 mg/dL (7.8-10.44); Carbon Dioxide 22 mmol/L (23-31); Chloride 97 mmol/L (98-107); Estimated GFR-MDRD 25; Glucose 127 mg/dL (80-115); Sodium 132 mmol/L (136-145)
[2019-08-21] MEDS: Carvedilol 3.125 MG TAB PO SCH ×2 (07:59→20:25)
[2019-08-21] MEDS: predniSONE 20 MG TAB PO SCH (07:59)
[2019-08-21] MEDS: Aspirin 81 mg Enteric Coated Tablet PO SCH (07:59)
[2019-08-21] MEDS: Raltegravir Potassium 400 MG TAB PO SCH ×2 (07:59→20:26)
[2019-08-21] MEDS: hydrALAZINE 25 MG TAB PO SCH ×2 (07:59→20:26)
[2019-08-21] MEDS: Polyethylene Glycol 3350 17 GM Packet PO SCH ×2 (08:51→20:26)
[2019-08-21] MEDS: Fludrocortisone Acetate 0.1 MG TAB PO SCH (11:20)
--- NOTE | 2019-08-21 13:16 | NM ---
VQ SCAN: HISTORY: Shortness of breath TECHNIQUE: A ventilation/perfusion scan was performed using 9.3 mCi xenon-133 by inhalation for the ventilation study followed by the intravenous administration of 5.4 mCi technetium 99m-MAA for the perfusion scan. CORRELATION: Chest radiograph from same date. FINDINGS: The ventilation scan is limited due to the patient's inability to take a deep breath. There is a moderate-sized wedge-shaped pleural-based perfusion defect in the right lung which is stab le compared to the VQ scan of 11/01/2017. IMPRESSION: Low-intermediate probability for pulmonary embolism.
--- NOTE | 2019-08-21 13:19 | RAD ---
PA AND LATERAL VIEWS CHEST: Date: 08/21/2019 HISTORY: Shortness of breath. FINDINGS/IMPRESSION: The heart size is enlarged. There is consolidation at the lung bases, left greater than right. No pne umothoraces seen. No large effusions are identified. POS: [facility]
--- NOTE | 2019-08-21 14:42 | PRG ---
DATE OF SERVICE: 08/21/2019 SERVICE: Nephrology. SUBJECTIVE: A 63-year-old male, seen for end-stage renal disease management. The patient was admitted due to worsening shortness of breath and hypotension, found to have septic shock and acute respiratory failure with hypoxia from healthcare-associated pneumonia, still getting antibiotics. The patient is on hemodialysis, Monday, , and Monday with last hemodialysis being yesterday. He however continued to complain of shortness of breath even while lying in bed. OBJECTIVE: VITAL SIGNS: Temperature 98.5, pulse 83, respiratory rate 24, SpO2 of 94% on 3 L nasal cannula, blood pressure is 138/86. GENERAL: Chronically ill-looking male, in no distress. Afebrile. HEENT: Normocephalic and atraumatic. CARDIOVASCULAR: Regular rhythm and rate with normal heart sounds 1 and 2. Systolic murmur noted. RESPIRATORY: Fair air entry bilaterally with few transmitted breath sounds. HEART: Air entry decreased at both bases. GI: Full, soft, nontender, nondistended with normal bowel sounds. EXTREMITIES: Mild edema of both elbows noted. Left forearm AV fistula with marked aneurysm and dilatation noted. COAL GASIFICATION TECHNICIAN: Conscious, alert, oriented x3 with appropriate mental status. LABORATORY DATA: CBC showed WBC count of 7.7, hemoglobin of 11, platelets of 140. BMP showed sodium 132, potassium 5.0, chloride 97, CO2 of 22, BUN 46, creatinine 3.04, glucose 127. IMAGING STUDIES: Chest x-ray showed enlarged heart size with consolidation of the lung bases, left greater than right, but no pneumothorax or large effusion noted. ASSESSMENT: 1. End-stage renal disease, on hemodialysis. Stable. We will continue hemodialysis on Monday, , and Monday. There is no indication for urgent dialysis today. Volume status and electrolytes are acceptable. 2. Volume status: Close to euvolemia. 3. Hypertension: Control is acceptable. 4. Acute respiratory failure with hypoxia: Due to pneumonia. Treatment as per primary attending. 5. Anemia in chronic kidney disease: Stable. 6. Healthcare-associated pneumonia. Treatment as per primary attending. Job ID: [id number]
--- NOTE | 2019-08-21 18:33 | CON ---
DATE OF CONSULTATION: 08/21/2019 REASON FOR CONSULTATION: Positive troponins. HISTORY OF PRESENT ILLNESS: Mr. Villeda is a pleasant 63-year-old gentleman, who comes to the hospital for shortness of breath. He is in [facility] and he started having difficulty breathing, sats in the low 60s, brought to the ER, and placed on BiPAP. He was altered as well. He was eventually diagnosed with healthcare-associated pneumonia and given antibiotics for this. During initial evaluation, troponins were drawn, which were positive, so Cardiology is being called for this. On my evaluation, Mr. Villeda is doing much better. He is back on the floor. His breathing is not an issue anymore. He is on room air. He denies any chest pain, tightness, or pressure. He has never had any pain before this admission. He is actually much more awake and conversant. His only complaint is feeling very cold. PAST MEDICAL HISTORY: 1. End-stage renal disease, on hemodialysis. 2. Hypertension. 3. Hyperlipidemia. 4. COPD. 5. HIV. 6. Esophageal cancer. 7. Diverticulosis. PAST SURGICAL HISTORY: 1. Appendectomy. 2. Hemorrhoidectomy. 3. 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 4. Herniorrhaphy x3. 5. Tonsillectomy. 6. Dialysis shunt placement in left forearm. 7. Left elbow surgery. FAMILY HISTORY: Noncontributory. SOCIAL HISTORY: Cocaine and marijuana use in the past. He has a 50 pack-year history of smoking, but none for 10 years. No alcohol or drugs. REVIEW OF SYSTEMS: A 12-point review of systems was done and was all negative unless stated in the history of present illness. PHYSICAL EXAMINATION: VITAL SIGNS: Temperature 98.5, pulse 83, respiratory rate 24, saturating 94% on 3 L nasal cannula, blood pressure 138/86. GENERAL: Awake, alert, oriented to person, place, and time, in no distress. HEENT: Normocephalic and atraumatic. NECK: Supple. LUNGS: Have mild crackles at the bases. CARDIOVASCULAR: S1 and S2. No S3 or S4. There is a grade 3/6 systolic murmur in the left sternal border. ABDOMEN: Soft. EXTREMITIES: Right BKA, otherwise no edema. SKIN: Warm and dry. LABORATORY DATA: Laboratory work was reviewed. White count 7.7, hemoglobin 11, hematocrit 37, platelet count 140. ABG was reviewed. Chemistries were reviewed; creatinine of 3, GFR of 25, direct bilirubin of 0.6. AST, ALT, and alkaline phosphatase are all elevated. Vitamin B12 was greater than 2000. Albumin of 2.8. Toxicology was reviewed. EKG was reviewed. Chest x-ray was reviewed. ASSESSMENT: 1. Elevated troponins. 2. Acute hypoxic respiratory insufficiency and hypercapnic respiratory insufficiency, improved. 3. Healthcare-associated pneumonia. 4. End-stage renal disease. 5. Metabolic encephalopathy, resolved. 6. Severe sepsis. PLAN: Likely elevation in troponin is related to type 2 demand ischemia. No indication for any interventions at this time. We would treat conservatively for now. He has been on hospice care in the recent past and has been DNR/DNI. At this time, not a good candidate for any invasive interventions. I do not think they are indicated either at this time. Thank you for letting us participate in the care of your patient. We will sign off. Please call with any questions. Job ID: [id number]
--- NOTE | 2019-08-21 19:15 | PDOC.HOSPP ---
- Subjective Encounter Date: 08/21/19 Encounter Time: 11:00 Subjective: patient shortness of breath is better. V/Q scan showed low to intermediate probability PE. Per Dr Young needs follow up in pulmonary hypertension clinic . he denies chest pain . Had dialysis today . patient wants to get stress test here so he can get fistula repair and thyroid surgery - Objective Vital Signs & Weight: Vital Signs (12 hours) Temp Pulse Resp BP Pulse Ox 08/21/19 19:08 88 16 95 08/21/19 14:00 83 20 94 L 08/21/19 08:00 94 L 08/21/19 07:59 83 08/21/19 07:41 98.5 F 83 24 H 138/86 94 L 08/21/19 07:25 74 16 96 Weight Admit Weight 163 lb Weight 167 lb 12.348 oz Most Recent Monitor Data Heart Rate from ECG 77 NIBP 163/95 NIBP BP-Mean 117 Respiration from ECG 23 SpO2 92 I&O: 08/20/19 08/21/19 08/22/19 06:59 06:59 06:59 Intake Total 780 960 Balance 780 960 Result Diagrams: 08/21/19 05:12 08/21/19 05:12 Hospitalist ROS - Review of Systems Constitutional: denies: fever, chills, sweats, weakness, malaise, other - Medication Medications: Active Medications Generic Name Dose Route Start Last Admin Trade Name Freq PRN Reason Stop Dose Admin Acetaminophen 650 mg 08/15/19 04:14 08/21/19 02:11 Tylenol PO 650 mg Q4H PRN Administration Headache/Fever/Mild Pain (1-3) Hydrocodone Bitart/Acetaminophen 1 tab 08/15/19 04:14 08/21/19 17:50 [place] 5/325 PO 1 tab Q4H PRN Administration Moderate Pain (4-6) Aspirin 81 mg 08/16/19 09:00 08/21/19 07:59 Ecotrin PO 81 mg DAILY ESME Administration Carvedilol 3.125 mg 08/16/19 21:00 08/21/19 07:59 Coreg PO 3.125 mg BID ESME Administration Clonidine 0.1 mg 08/15/19 04:17 08/21/19 01:20 Catapres PO 0.1 mg Q4H PRN Administration SBP > 160 use second Etravirine 200 mg 08/15/19 08:00 08/21/19 17:47 Intelence PO 200 mg BID-PC ESME Administration Fludrocortisone Acetate 0.1 mg 08/15/19 09:00 08/21/19 11:20 Florinef PO Not Given DAILY ESME Hydralazine HCl 10 mg 08/15/19 04:17 08/16/19 16:59 Apresoline SLOW IVP 10 mg Q6H PRN Administration SBP GREATER THAN 160 Hydralazine HCl 25 mg 08/16/19 21:00 08/21/19 07:59 Apresoline PO 25 mg BID ESME Administration Cefepime HCl 1 gm/ Sodium 100 mls @ 200 mls/hr 08/16/19 00:00 08/21/19 01:15 Chloride IVPB Not Given 0000 ESME Vancomycin HCl 1 gm/ Device 200 mls @ 200 mls/hr 08/17/19 12:15 08/20/19 11: 33 IVPB 200 mls WILLCALL ESME Administration Vancomycin HCl 750 mg/ Sodium 250 mls @ 250 mls/hr 08/17/19 12:15 08/17/19 15 :36 Chloride IVPB 250 mls WILLCALL ESME Administration Ipratropium [place] 2.5 ml 08/16/19 13:00 08/21/19 19:08 Atrovent NEB 2.5 ml [id number] ESME Administration Melatonin 9 mg 08/17/19 21:00 08/20/19 20:18 Melatonin PO 9 mg HS ESME Administration Pantoprazole Sodium 40 mg 08/15/19 09:00 08/21/19 07:59 Protonix PO 40 mg DAILY ESME Administration Polyethylene Glycol 17 gm 08/18/19 21:00 08/21/19 08:51 Miralax PO Not Given BID ESME Raltegravir 400 mg 08/15/19 09:00 08/21/19 07:59 Isentress PO 400 mg BID ESME Administration Zidovudine 100 mg 08/15/19 06:00 08/21/19 14:07 Retrovir PO 100 mg Q8HR ESME Administration Zolpidem Tartrate 5 mg 08/19/19 21:36 08/20/19 20:18 Ambien PO 5 mg HSPRN PRN Administration Insomnia - Exam General Appearance: NAD, awake alert General - other findings: obese ENT - other findings: goiter Heart: no murmur, no gallops, no rubs Respiratory: CTAB, no wheezes, no rales, no ronchi Gastrointestinal: soft, non-tender, non-distended Extremities: no cyanosis, no clubbing, no edema Hosp A/P - Plan CT chest: cardiomegaly, bilateral pleural fluid with adjacent atelectasis and/ or infiltrate This is a 63 year old male patient with HIV who presented with shortness of breath, treated for bilateral pneumonia #Acute hypoxic respiratory failure from bilateral pneumonia #Severe pulmonary hypertension with elevated troponin #DiastoliC CHF - on IV vancomycin and cefepime, continue day 5 for now. Currently back to baseline oxygen requirement - blood culture shows 1/2 coag negative staph - CT chest showing bilateral pleural fluid with possible infiltrate. He received dialysis today. No significant effusion to tap - ECHO shows grade 2/3 diastolic dysfunction, severe TR, elevated RV systolic pressure and reduced RV function. Will check V/Q scan showed low to intermediate probability pulmonary emboli. Needs follow up with Dr Hardy in pulm hypertension clinic - Troponins were elevated, consult Dr. Lawrence, patient requesting stress test ESRD -s/p dialysis yesterday Hypertension - hydralazine Stage III sacral ulcer - appreciate wound recs HIV - continue outpatient meds Dispo: pending recs from cards , maybe dc in am a
[2019-08-21] MEDS: Melatonin 3 MG TAB PO SCH (20:25)
[2019-08-21] MEDS: Zolpidem Tartrate 5 MG TAB PO PRN (20:26)
[2019-08-22] MEDS: Ipratropium Bromide 2.5 ml Neb NEB SCH ×4 (00:33→19:05)
[2019-08-22] MEDS: hydrALAZINE 20 MG/ML VIAL SLOW IVP PRN (05:53)
[2019-08-22] MEDS: Carvedilol 3.125 MG TAB PO SCH ×2 (08:29→20:31)
[2019-08-22] MEDS: Raltegravir Potassium 400 MG TAB PO SCH ×2 (08:29→20:31)
[2019-08-22] MEDS: hydrALAZINE 25 MG TAB PO SCH ×2 (08:29→20:31)
[2019-08-22] MEDS: Aspirin 81 mg Enteric Coated Tablet PO SCH (08:29)
[2019-08-22] MEDS: Polyethylene Glycol 3350 17 GM Packet PO SCH ×2 (08:30→20:32)
[2019-08-22] MEDS: Fludrocortisone Acetate 0.1 MG TAB PO SCH (08:30)
[2019-08-22] MEDS: HYDROcodone/Acetaminophen 5/325 mg Tablet PO PRN ×2 (08:33→12:14)
--- NOTE | 2019-08-22 08:37 | PDOC.CPN ---
- Subjective Date: 08/22/19 Time: 08:35 Interval history: No new issues. No chest pain. - Review of Systems General: denies: fever/chills, weight/appetite/sleep changes, night sweats, fatigue Respiratory: denies: cough, congestion, shortness of breath, exercise intolerance Cardiovascular: denies: chest pain, palpitation, edema, paroxysmal nocturnal dyspnea, orthopnea Gastrointestinal: denies: nausea, vomiting, diarrhea, constipation, abd pain, GI bleeding Musculoskeletal: denies: pain, tenderness, stiffness, swelling, arthritis/ arthralgias Neurological: denies: numbness, syncope, seizure, weakness - Objective Allergies/Adverse Reactions: Allergies Allergy/AdvReac Type Severity Reaction Status Date / Time clindamycin Allergy Intermediate CAUSED Verified 07/13/19 14:23 HYPERKALEMIA paroxetine HCl [From Paxil] Allergy Intermediate PT STATES Verified 07/13/19 14: 23 IT MADE HIM VERY CRAZY IN HEAD cephalexin Allergy Verified 07/13/19 14:23 ciprofloxacin Allergy Verified 07/13/19 14:23 dalteparin,porcine Allergy Verified 07/13/19 14:23 [From Fragmin] Visit Medications: Current Medications Acetaminophen (Tylenol) 650 mg PO Q4H PRN PRN Reason: Headache/Fever/Mild Pain (1-3) Last Admin: 08/21/19 02:11 Dose: 650 mg Hydrocodone Bitart/Acetaminophen ([place] 5/325) 1 tab PO Q4H PRN PRN Reason: Moderate Pain (4-6) Last Admin: 08/22/19 08:33 Dose: 1 tab Aspirin (Ecotrin) 81 mg PO DAILY [facility] Last Admin: 08/22/19 08:29 Dose: 81 mg Bisacodyl (Dulcolax) 10 mg PO DAILYPRN PRN PRN Reason: Constipation Bisacodyl (Dulcolax) 10 mg [place] DAILYPRN PRN PRN Reason: Constipation Carvedilol (Coreg) 3.125 mg PO BID [facility] Last Admin: 08/22/19 08:29 Dose: 3.125 mg Clonidine (Catapres) 0.1 mg PO Q4H PRN PRN Reason: SBP > 160 use second Last Admin: 08/21/19 01:20 Dose: 0.1 mg Dextrose/Water (Dextrose 50%) 25 gm SLOW IVP PRN PRN PRN Reason: Hypoglycemia Etravirine (Intelence) 200 mg PO BID-PC [facility] Last Admin: 08/22/19 08:29 Dose: 200 mg Fludrocortisone Acetate (Florinef) 0.1 mg PO DAILY [facility] Last Admin: 08/22/19 08:30 Dose: 0.1 mg Glucagon (Glucagon) 1 mg IM PRN PRN PRN Reason: Hypoglycemia Hydralazine HCl (Apresoline) 10 mg SLOW IVP Q6H PRN PRN Reason: SBP GREATER THAN 160 Last Admin: 08/22/19 05:53 Dose: 10 mg Hydralazine HCl (Apresoline) 25 mg PO BID [facility] Last Admin: 08/22/19 08:29 Dose: 25 mg Promethazine HCl 12.5 mg/ (Sodium Chloride) 50.5 mls @ 202 mls/hr IVPB Q6H PRN PRN Reason: Nausea/vomiting use second Dextrose/Water (D5w) 1,000 mls @ 0 mls/hr IV .Q0M PRN PRN Reason: Hypoglycemia Cefepime HCl 1 gm/ Sodium (Chloride) 100 mls @ 200 mls/hr IVPB 0000 [facility] Last Admin: 08/21/19 23:58 Dose: 100 mls Vancomycin HCl 1.25 gm/ Sodium (Chloride) 250 mls @ 166.667 mls/hr IVPB WILLCALL [facility] Vancomycin HCl 1 gm/ Device 200 mls @ 200 mls/hr IVPB WILLCALL [facility] Last Admin: 08/20/19 11:33 Dose: 200 mls Vancomycin HCl 750 mg/ Sodium (Chloride) 250 mls @ 250 mls/hr IVPB WILLCALL [facility] Last Admin: 08/17/19 15:36 Dose: 250 mls Vancomycin HCl 500 mg/ Sodium (Chloride) 100 mls @ 100 mls/hr [facility] Ipratropium [place] (Atrovent) 2.5 ml [id number] [facility] Last Admin: 08/22/19 07:04 Dose: 2.5 ml Melatonin (Melatonin) 9 mg PO [facility] Last Admin: 08/21/19 20:25 Dose: 9 mg Miscellaneous Medication (Pharmacy To Dose) 1 each IVPB .VANCO/ABX PRN PRN Reason: Pharmacy to dose Hold Vancomycin For (Level >20) 0 each FS .AT DIALYSIS [facility] Ondansetron HCl (Zofran) 4 mg IVP Q6H PRN PRN Reason: Nausea/Vomiting use 1st Pantoprazole Sodium (Protonix) 40 mg PO DAILY [facility] Last Admin: 08/22/19 08:29 Dose: 40 mg Polyethylene Glycol (Miralax) 17 gm PO BID [facility] Last Admin: 08/22/19 08:30 Dose: Not Given Raltegravir (Isentress) 400 mg PO BID [facility] Last Admin: 08/22/19 08:29 Dose: 400 mg Zidovudine (Retrovir) 100 mg PO Q8HR [facility] Last Admin: 08/22/19 05:54 Dose: 100 mg Zolpidem Tartrate (Ambien) 5 mg PO HSPRN PRN PRN Reason: Insomnia Last Admin: 08/21/19 20:26 Dose: 5 mg Vital Signs & Weight: Vital Signs Temp Pulse Resp BP BP BP Pulse Ox 08/22/19 08:29 74 166/90 H 08/22/19 08:00 98.0 F 74 20 166/90 H 95 08/22/19 07:04 69 16 98 08/22/19 05:53 69 163/88 H 08/22/19 05:52 97.9 F 69 16 163/88 H 98 08/22/19 00:33 86 22 H 96 08/22/19 00:00 86 22 H 96 Admit Weight 163 lb Weight 167 lb 12.348 oz - Physical Exam General: alert & oriented x3 HEENT: mucus membranes moist Neck: supple neck Cardiac: regular rate and rhythm, systolic murmur Lungs: normal breath sounds Neuro: no lateralizing findings Abdomen: active bowel sounds Extremities: 1+ LE edema Skin: clear Musculoskeletal: no pain - Labs Result Diagrams: 08/21/19 05:12 08/21/19 05:12 Troponin/CKMB CK-MB (CK-2) 3.5 ng/mL (0-6.6) 08/15/19 00:27 Troponin I 0.342 ng/mL (< 0.028) H* 08/15/19 18:22 - Telemetry Sinus rhythms and dysrhythmias: sinus rhythm - Assessment/Plan Assessment/Plan: 1. Type 2 demand ischemia. 2. Pneumonia 3. Healthcare-associated pneumonia 4. ESRD 5. Metabolic encephalopathy, resolved. 6. Pulmonary hypertension. PLAN: - Continue conservative therapy. - Normal LV function. - Elevated right sided pressures will improve with HD.
--- NOTE | 2019-08-22 15:32 | PDOC.HOSPP ---
- Subjective Encounter Date: 08/22/19 Encounter Time: 12:00 Subjective: The patient's breathing is improved. He is complaining that his right arm and left arm hurts. THe patient states that he fell a month ago and he hasn't been able to lift up his right arm or his left arm since then. He also complains that his toe hurts and he has a bruise there. - Objective Vital Signs & Weight: Vital Signs (12 hours) Temp Pulse Resp BP BP BP Pulse Ox 08/22/19 08:39 95 08/22/19 08:29 74 166/90 H 08/22/19 08:00 98.0 F 74 20 166/90 H 95 08/22/19 07:04 69 16 98 08/22/19 05:53 69 163/88 H 08/22/19 05:52 97.9 F 69 16 163/88 H 98 Weight Admit Weight 163 lb Weight 167 lb 12.348 oz Most Recent Monitor Data Heart Rate from ECG 77 NIBP 163/95 NIBP BP-Mean 117 Respiration from ECG 23 SpO2 92 I&O: 08/21/19 08/22/19 08/23/19 06:59 06:59 06:59 Intake Total 780 960 Balance 780 960 Result Diagrams: 08/21/19 05:12 08/21/19 05:12 Hospitalist ROS - Review of Systems Constitutional: denies: fever, chills Respiratory: denies: cough, dry - Medication Medications: Active Medications Generic Name Dose Route Start Last Admin Trade Name Freq PRN Reason Stop Dose Admin Acetaminophen 650 mg 08/15/19 04:14 08/21/19 02:11 Tylenol PO 650 mg Q4H PRN Administration Headache/Fever/Mild Pain (1-3) Hydrocodone Bitart/Acetaminophen 1 tab 08/15/19 04:14 08/22/19 12:14 [place] 5/325 PO 1 tab Q4H PRN Administration Moderate Pain (4-6) Aspirin 81 mg 08/16/19 09:00 08/22/19 08:29 Ecotrin PO 81 mg DAILY [facility] Administration Carvedilol 3.125 mg 08/16/19 21:00 08/22/19 08:29 Coreg PO 3.125 mg BID [facility] Administration Clonidine 0.1 mg 08/15/19 04:17 01/08/20 01:20 Catapres PO 0.1 mg Q4H PRN Administration SBP > 160 use second Etravirine 200 mg 08/15/19 08:00 08/22/19 08:29 Intelence PO 200 mg BID-PC [facility] Administration Fludrocortisone Acetate 0.1 mg 08/15/19 09:00 08/22/19 08:30 Florinef PO 0.1 mg DAILY [facility] Administration Hydralazine HCl 10 mg 08/15/19 04:17 08/22/19 05:53 Apresoline SLOW IVP 10 mg Q6H PRN Administration SBP GREATER THAN 160 Hydralazine HCl 25 mg 08/16/19 21:00 08/22/19 08:29 Apresoline PO 25 mg BID [facility] Administration Cefepime HCl 1 gm/ Sodium 100 mls @ 200 mls/hr 08/16/19 00:00 08/21/19 23:58 Chloride IVPB 100 mls 0000 [facility] Administration Vancomycin HCl 1 gm/ Device 200 mls @ 200 mls/hr 08/17/19 12:15 08/20/19 11: 33 IVPB 200 mls WILLCALL [facility] Administration Vancomycin HCl 750 mg/ Sodium 250 mls @ 250 mls/hr 08/17/19 12:15 08/17/19 15 :36 Chloride IVPB 250 mls WILLCALL [facility] Administration Ipratropium [place] 2.5 ml 08/16/19 13:00 08/22/19 13:43 Atrovent NEB Not Given [id number] [facility] Melatonin 9 mg 08/17/19 21:00 08/21/19 20:25 Melatonin PO 9 mg HS [facility] Administration Pantoprazole Sodium 40 mg 08/15/19 09:00 08/22/19 08:29 Protonix PO 40 mg DAILY [facility] Administration Polyethylene Glycol 17 gm 08/18/19 21:00 08/22/19 08:30 Miralax PO Not Given BID [facility] Raltegravir 400 mg 08/15/19 09:00 08/22/19 08:29 Isentress PO 400 mg BID [facility] Administration Zidovudine 100 mg 08/15/19 06:00 08/22/19 05:54 Retrovir PO 100 mg Q8HR [facility] Administration Zolpidem Tartrate 5 mg 08/19/19 21:36 08/21/19 20:26 Ambien PO 5 mg HSPRN PRN Administration Insomnia - Exam General Appearance: NAD, awake alert Eye: PERRL, anicteric sclera ENT: normocephalic atraumatic, no oropharyngeal lesions Neck: supple, symmetric, no JVD Heart: RRR, no murmur, no gallops, no rubs Respiratory: CTAB, no wheezes, no rales, no ronchi Gastrointestinal: soft, non-tender, non-distended Extremities - other findings: Patient has tenderness on right and left shoulder. Unable to lift arms Skin - other findings: Right toe appears necrotic and tender to palpation Neurological: cranial nerve grossly intact, normal sensation to touch, no weakness Hosp A/P - Plan CT chest: cardiomegaly, bilateral pleural fluid with adjacent atelectasis and/ or infiltrate VQ scan: low to intermediate probability PE Shoulder Xray left: acute fracture involving the acromion with fracture line extending into the neck of the glenoid and new AC joint separation This is a 63 year old male patient with HIV who presented with shortness of breath, treated for bilateral pneumonia #Acute hypoxic respiratory failure from bilateral pneumonia - resolved #Severe pulmonary hypertension with elevated troponin #DiastoliC CHF - on IV vancomycin and cefepime, continue day 6 for now. Currently back to baseline oxygen requirement - blood culture shows 1/2 coag negative staph likely contaminant - CT chest showing bilateral pleural fluid with possible infiltrate. He received dialysis today. No significant effusion to tap - ECHO shows grade 2/3 diastolic dysfunction, severe TR, elevated RV systolic pressure and reduced RV function. V/Q scan showed low to intermediate probability PE, unchanged from 2018. Per Dr. Young, can follow up with Dr. Hardy in pulmonary hypertension clinic - Dr Lawrence consulted, no workup necessary. Patient states he needed a stress test as an outpatient #Left acromion fracture extending into glenoid and AC joint #Right shoulder arm pain - Xray of left shoulder showing acromion fracture from the . CT recommended , will order CT. Ortho consult - will check right shoulder CT as well since patient cannot lift up his arm and is flaccid #Right necrotic toe - order right foot X ray - general surgery consult ESRD -s/p dialysis yesterday Hypertension - hydralazine Stage III sacral ulcer - appreciate wound recs HIV - continue outpatient meds Dispo: ortho consult for shoulder fracture
--- NOTE | 2019-08-22 15:59 | PRG ---
DATE OF SERVICE: 08/22/2019 SERVICE: Nephrology. SUBJECTIVE DATA: A 63-year-old male being followed up for end-stage renal disease management. The patient was admitted due to worsening shortness of breath as well as septic shock, found to be due to healthcare-associated pneumonia. Clinically improved. Reports feeling better today. Denied nausea, vomiting, diarrhea, or abdominal pain. The patient does not make urine. OBJECTIVE: VITAL SIGNS: Temperature 98.0, pulse 74, respiratory rate 20, SpO2 of 95% on 3 L nasal cannula, blood pressure is 166/90. GENERAL: Chronically ill-looking male patient, in no obvious distress. Afebrile. Anicteric. Acyanotic. CARDIOVASCULAR: Regular rhythm and rate with normal heart sounds 1 and 2. Systolic murmur noted. RESPIRATORY: Fair air entry bilaterally with bibasilar crackles. Work of breathing however is not increased. GI: Full, soft, nontender, nondistended with normal bowel sounds. EXTREMITIES: [id number] edema of the right lower extremity as well as both elbows. Left AKA noted. Left forearm AV fistula with marked aneurysmal dilatation noted. [facility]: Conscious, alert, and oriented x3 with appropriate mental status. DIAGNOSTIC DATA: No labs drawn today. ASSESSMENT: 1. End-stage renal disease, on hemodialysis on Monday, , Monday. 2. Hyperkalemia. 3. Volume overload. 4. Acute respiratory failure with hypoxia and hypercarbia due to healthcare associated pneumonia. 5. Septic shock, resolved. 6. Hypertension, the patient is back on some antihypertensives with fair control. DISCUSSION: The patient has had hyperkalemia recurrently. He has AV fistula which will be accessed for dialysis, which however had marked aneurysmal dilatation. The patient will not let the dialysis nurse any other place apart from the aneurysmal dilatation. Given persistent of hyperkalemia, it is possible that the patient is having limiting dialysis treatment. I discussed with the patient extensively to allow the dialysis nurse to access the AV fistula via another site without aneurysmal dilatation and he agrees. We will dialyze the patient today using 2K bath and UF as tolerated. We will continue current antihypertensives. Further treatment to follow depending on hospital course. Job ID: [id number]
[2019-08-22] MEDS: Zolpidem Tartrate 5 MG TAB PO PRN (20:31)
[2019-08-22] MEDS: Melatonin 3 MG TAB PO SCH (20:31)
--- NOTE | 2019-08-22 21:03 | RAD ---
FOUR VIEWS LEFT SHOULDER: 08/22/19 HISTORY: Left shoulder pain. COMPARISON: CT thorax from 08/20/19. FINDINGS: There is mild left acromioclavicular joint osteoarthritis. No obvious fracture is appreciated on this examination. Prior CT scan of the thorax on 07/13/19 did demonstrate fractures involving the body of the scapula as well as the medial aspect of the left clavicle which are not well delineated or evalu ated on this exam. There is irregularity in the region of the acromion and in the expected location o f the acromioclavicular joint, but this was present on study of 07/13/19 and is likely related to rem ote injury. There is notching along the undersurface of the clavicle in the expected location of the coracoclavicular ligament likely related to prior injury in this region. No other osseous abnormality . IMPRESSION: 1. Left acromioclavicular joint osteoarthritis. 2. Findings suggestive of prior injury in the region of the coracoclavicular ligament. 3. Previously seen fractures involving the medial left clavicle as well as involving the body of the scapula on prior CT exam are not well delineated on this study. POS: [facility]
--- NOTE | 2019-08-22 21:06 | RAD ---
TWO VIEWS RIGHT SHOULDER: 08/22/19 HISTORY: Right shoulder pain. COMPARISON: CT thorax on 08/20/19. FINDINGS: There is mild resorption of the distal right clavicle. There is mild right glenohumeral osteoarthrop athy present. No obvious acute fracture or dislocation is seen involving the right shoulder on provid ed images. Remote lateral mid right sided rib fracture is present. No other findings. IMPRESSION: 1. Osteopenia with degenerative change involving the right shoulder as described above. 2. No obvious acute fracture or dislocation is seen involving the right shoulder. 3. Remote lateral right sided rib fracture. POS: [facility]
--- NOTE | 2019-08-22 21:11 | RAD ---
THREE VIEWS RIGHT FOOT: 08/22/19 HISTORY: Right foot pain. Necrotic right toe. COMPARISON: 12/16/14. FINDINGS: There is osteopenia present. Osteoarthritis involves the interphalangeal joint of the right great to e. There does appear to be small erosion at the distal aspect of the fifth metatarsal head. No osseou s destruction is seen. The Lisfranc joint is normally aligned. No fracture or dislocation is identifi ed. A tiny plantar calcaneal enthesophyte is seen. There is subcutaneous soft tissue swelling seen a t the dorsal aspect of the foot. Dense vascular calcifications are again seen about the foot. IMPRESSION: Subcutaneous soft tissue swelling and chronic changes involving the right foot. No obvious acute osse ous abnormality is seen. There is a tiny erosion involving the fifth metatarsal head. POS: [facility]
[2019-08-22] MEDS: Cefepime 1 GM in Sodium Chloride 0.9% 100 ML IVPB SCH (23:15)
[2019-08-23] MEDS: Ipratropium Bromide 2.5 ml Neb NEB SCH ×3 (01:31→13:25)
[2019-08-23] MEDS: HYDROcodone/Acetaminophen 5/325 mg Tablet PO PRN ×3 (04:06→17:31)
[2019-08-23 05:36] LABS: Hemoglobin 11.1 g/dL (14.0-18.0); Mean Corpuscular HGB CONC 31.6 g/dL (32.0-36.0); Mean Corpuscular Hemoglobin 33.4 pg (27.0-31.0); Mean Platelet Volume 9.8 fL (7.4-10.4); Platelet Count 168 thou/uL (130-400); RBC Distribution Width 20.2 % (11.5-14.5); Red Blood Cell (RBC) Count 3.32 mill/uL (4.70-6.10); White Blood Cell (WBC) Count 5.2 thou/uL (4.8-10.8)
[2019-08-23 06:00] LABS: ALT (SGPT) 421 U/L (8-55); AST (SGOT) 31 U/L (5-34); Albumin 2.8 g/dL (3.4-4.8); Alkaline Phosphatase 164 U/L (40-110); Anion Gap 16 mmol/L (10-20); BUN (Urea Nitrogen) 40 mg/dL (8.4-25.7); Bilirubin, Total 0.9 mg/dL (0.2-1.2); Calc. Creatinine Clearance 29 mL/min (70-130); Calcium 8.5 mg/dL (7.8-10.44); Carbon Dioxide 26 mmol/L (23-31); Chloride 97 mmol/L (98-107); Estimated GFR-MDRD 28; Globulin 3.3 g/dL (2.4-3.5); Glucose 107 mg/dL (80-115); Potassium 4.8 mmol/L (3.5-5.1); Protein, Total 6.1 g/dL (5.8-8.1); Sodium 134 mmol/L (136-145)
[2019-08-23] MEDS: Raltegravir Potassium 400 MG TAB PO SCH (08:21)
[2019-08-23] MEDS: Fludrocortisone Acetate 0.1 MG TAB PO SCH (08:21)
[2019-08-23] MEDS: Aspirin 81 mg Enteric Coated Tablet PO SCH (08:21)
[2019-08-23] MEDS: Carvedilol 3.125 MG TAB PO SCH (08:22)
[2019-08-23] MEDS: Polyethylene Glycol 3350 17 GM Packet PO SCH (08:22)
[2019-08-23] MEDS: hydrALAZINE 25 MG TAB PO SCH (08:22)
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
--- NOTE | 2019-08-23 10:35 | PRG ---
DATE OF SERVICE: 08/23/2019 SERVICE: Nephrology. SUBJECTIVE: A 63-year-old male, seen in followup for end-stage renal disease management. The patient was admitted due to acute on chronic respiratory failure with hypoxia and hypercarbia as well as septic shock due to pneumonia. Reports feeling better. No new complaint. Last dialysis was yesterday. OBJECTIVE: VITAL SIGNS: Temperature 98.1, pulse 78, respiratory rate 20, SpO2 of 92% on 3 L nasal cannula, blood pressure 177/96. GENERAL: Male patient, in no distress. Afebrile. Anicteric. Acyanotic. HEENT: Normocephalic, atraumatic. Oral mucosa is moist. CARDIOVASCULAR: Regular rhythm and rate with normal heart sounds 1 and 2. Systolic murmur noted. RESPIRATORY: Fair air entry bilaterally with few bibasilar crackles posteriorly. No rhonchi or use of accessory muscles appreciated. GI: Full, soft, nontender, nondistended with normal bowel sounds. EXTREMITIES: Left AKA noted as well as left forearm AV fistula with aneurysmal dilatation. Mild edema of extremities noted. HEAD OF MARKETING ADOMETRY: Conscious and alert and oriented x3 with appropriate mental status. DIAGNOSTIC DATA: CBC showed WBC count of 5.2, hemoglobin of 11.1, platelet of 168. BMP showed sodium 134, potassium 4.8, chloride 97, CO2 of 26, BUN 40, creatinine 2.8, glucose 107, calcium 8.5, total bilirubin 0.9, AST 31, ALT 421, alkaline phosphatase 154, total protein 6.1, albumin 3.8, globulin 3.3. ASSESSMENT AND PLAN: 1. End-stage renal disease, on hemodialysis on Monday, , Monday with last hemodialysis being yesterday, August 22, 2019. The patient had a better dialysis as evidenced by the electrolytes. The patient had access via non-aneurysmal area of the AV fistula. 2. Hypertension: Control is suboptimal. We will increase the hydralazine to 25 t.i.d. 3. Anemia in chronic kidney disease: Stable. 4. Hyperkalemia: Corrected with hemodialysis. 5. Volume overload: Improved with hemodialysis with UF. 6. Healthcare associated pneumonia: On antimicrobial therapy. 7. Further treatment as per primary attending. We will plan on hemodialysis tomorrow. Job ID: [id number]
[2019-08-23] MEDS: hydrALAZINE 20 MG/ML VIAL SLOW IVP PRN (11:16)
[2019-08-23] MEDS ORDERED: traMADol HCl 50 MG TAB PO SCH (13:15)
[2019-08-23] MEDS ORDERED: Lidocaine 5% Patch TD SCH (14:00)
--- NOTE | 2019-08-23 14:48 | PDOC.GSPN ---
Surgery Progress Note: Subj - Subjective Narrative: Patient well known to me from previous admissions, most recently seen for Mediport removal for positive blood culture. He has esophageal cancer which was treated with chemotherapy and radiation and no further treatment is planned. He is healing well from the Mediport removal. I was asked to see him during this admission for possible gangrene of his right toe. He has already undergone a left leg amputation. Patient feels fine. He denies any pain in his foot. He states that his toenail fell off after his dog stepped on his toe and it has been black since that time. He has several thickened unhealthy toenails and is unable to trim them himself. No redness swelling fevers chills drainage or odor of the toe or foot. He has a good pulse in that foot and there is no erythema or swelling. There is a dark scab over the nailbed which is starting to lift up at the edges. This was partially debrided but the adherent scab was left in place. This should gradually lift up and come off on its own over time. He has multiple other thickened long and partially ingrown nails which were trimmed. He was encouraged to establish care with a drafter marine. No other intervention for his feet is necessary at this time. 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 Casas the operation was aborted since anesthesia was unable to manage his airway due to his large goiter. His fistula is still usable above the level of the pseudoaneurysms. If his life scientists decides to proceed with operative management of his goiter, concurrent repair of the pseudoaneurysms could be considered. He is to contact us to schedule this if the goiter surgery is scheduled. Otherwise he can follow up in the Gen. surgery clinic on an as-needed basis. Signing off for now. Surgery Progress Note: Obj - Vital signs Vital signs: Vital Signs - Most Recent Temp Pulse Resp BP Pulse Ox 98.1 F 75 16 153/89 H 94 L 08/23/19 08:00 08/23/19 13:25 08/23/19 13:25 08/23/19 12:00 08/23/19 11:15 Surgery Progress Note: Results - Labs Result Diagrams: 08/23/19 05:25 08/23/19 05:25 Lab results: Laboratory Results - last 24 hr 08/23/19 08/23/19 05:25 05:25 WBC 5.2 RBC 3.32 L Hgb 11.1 L Hct 35.1 L MCV 106.0 H MCH 33.4 H MCHC 31.6 L RDW 20.2 H Plt Count 168 MPV 9.8 Sodium 134 L Potassium 4.8 Chloride 97 L Carbon Dioxide 26 Anion Gap 16 BUN 40 H Creatinine 2.80 H Estimated GFR (MDRD) 28 Glucose 107 Calcium 8.5 Total Bilirubin 0.9 AST 31 ALT 421 H Alkaline Phosphatase 164 H Serum Total Protein 6.1 Albumin 2.8 L Globulin 3.3 Albumin/Globulin Ratio 0.8 L
[2019-08-23] MEDS ORDERED: hydrALAZINE 25 MG TAB PO SCH (15:00)
--- NOTE | 2019-08-23 15:00 | PDOC.CPN ---
- Subjective Date: 08/23/19 Time: 14:58 Interval history: No new issues or complaints. - Review of Systems General: denies: fever/chills, weight/appetite/sleep changes, night sweats, fatigue Respiratory: denies: cough, congestion, shortness of breath, exercise intolerance Cardiovascular: denies: chest pain, palpitation, edema, paroxysmal nocturnal dyspnea, orthopnea Gastrointestinal: denies: nausea, vomiting, diarrhea, constipation, abd pain, GI bleeding Musculoskeletal: denies: pain, tenderness, stiffness, swelling, arthritis/ arthralgias Neurological: denies: numbness, syncope, seizure, weakness - Objective Allergies/Adverse Reactions: Allergies Allergy/AdvReac Type Severity Reaction Status Date / Time clindamycin Allergy Intermediate CAUSED Verified 07/13/19 14:23 HYPERKALEMIA paroxetine HCl [From Paxil] Allergy Intermediate PT STATES Verified 07/13/19 14: 23 IT MADE HIM VERY CRAZY IN HEAD cephalexin Allergy Verified 07/13/19 14:23 ciprofloxacin Allergy Verified 07/13/19 14:23 dalteparin,porcine Allergy Verified 07/13/19 14:23 [From Fragmin] Visit Medications: Current Medications Acetaminophen (Tylenol) 650 mg PO Q4H PRN PRN Reason: Headache/Fever/Mild Pain (1-3) Last Admin: 08/21/19 02:11 Dose: 650 mg Hydrocodone Bitart/Acetaminophen ([place] 5/325) 1 tab PO Q4H PRN PRN Reason: Moderate Pain (4-6) Last Admin: 08/23/19 11:10 Dose: 1 tab Aspirin (Ecotrin) 81 mg PO DAILY [facility] Last Admin: 08/23/19 08:21 Dose: 81 mg Bisacodyl (Dulcolax) 10 mg PO DAILYPRN PRN PRN Reason: Constipation Bisacodyl (Dulcolax) 10 mg [place] DAILYPRN PRN PRN Reason: Constipation Carvedilol (Coreg) 3.125 mg PO BID [facility] Last Admin: 08/23/19 08:22 Dose: 3.125 mg Clonidine (Catapres) 0.1 mg PO Q4H PRN PRN Reason: SBP > 160 use second Last Admin: 08/21/19 01:20 Dose: 0.1 mg Dextrose/Water (Dextrose 50%) 25 gm SLOW IVP PRN PRN PRN Reason: Hypoglycemia Etravirine (Intelence) 200 mg PO BID-PC [facility] Last Admin: 08/23/19 08:21 Dose: 200 mg Fludrocortisone Acetate (Florinef) 0.1 mg PO DAILY [facility] Last Admin: 08/23/19 08:21 Dose: 0.1 mg Glucagon (Glucagon) 1 mg IM PRN PRN PRN Reason: Hypoglycemia Hydralazine HCl (Apresoline) 10 mg SLOW IVP Q6H PRN PRN Reason: SBP GREATER THAN 160 Last Admin: 08/23/19 11:16 Dose: 10 mg Hydralazine HCl (Apresoline) 25 mg PO TID [facility] Last Admin: 08/23/19 14:53 Dose: 25 mg Promethazine HCl 12.5 mg/ (Sodium Chloride) 50.5 mls @ 202 mls/hr IVPB Q6H PRN PRN Reason: Nausea/vomiting use second Dextrose/Water (D5w) 1,000 mls @ 0 mls/hr IV .Q0M PRN PRN Reason: Hypoglycemia Cefepime HCl 1 gm/ Sodium (Chloride) 100 mls @ 200 mls/hr IVPB 0000 [facility] Last Admin: 08/22/19 23:15 Dose: 100 mls Vancomycin HCl 1.25 gm/ Sodium (Chloride) 250 mls @ 166.667 mls/hr IVPB WILLCALL [facility] Vancomycin HCl 1 gm/ Device 200 mls @ 200 mls/hr IVPB WILLCALL [facility] Last Admin: 08/20/19 11:33 Dose: 200 mls Vancomycin HCl 750 mg/ Sodium (Chloride) 250 mls @ 250 mls/hr IVPB WILLCALL [facility] Last Admin: 08/17/19 15:36 Dose: 250 mls Vancomycin HCl 500 mg/ Sodium (Chloride) 100 mls @ 100 mls/hr IVPB WILLCALL [facility] Last Admin: 08/22/19 16:20 Dose: 100 mls Ipratropium [place] (Atrovent) 2.5 ml NEB [id number] [facility] Last Admin: 08/23/19 13:25 Dose: 2.5 ml Lidocaine (Lidoderm 5% Patch) 1 patch TD Q24H [facility] Last Admin: 08/23/19 14:51 Dose: 1 patch Melatonin (Melatonin) 9 mg PO HS [facility] Last Admin: 08/22/19 20:31 Dose: 9 mg Miscellaneous Medication (Pharmacy To Dose) 1 each IVPB .VANCO/ABX PRN PRN Reason: Pharmacy to dose Miscellaneous Medication (Lidocaine Patch Removal) 1 each TOP 0200 [facility] Hold Vancomycin For (Level >20) 0 each FS .AT DIALYSIS [facility] Ondansetron HCl (Zofran) 4 mg IVP Q6H PRN PRN Reason: Nausea/Vomiting use 1st Pantoprazole Sodium (Protonix) 40 mg PO DAILY [facility] Last Admin: 08/23/19 08:21 Dose: 40 mg Polyethylene Glycol (Miralax) 17 gm PO BID [facility] Last Admin: 08/23/19 08:22 Dose: Not Given Raltegravir (Isentress) 400 mg PO BID [facility] Last Admin: 08/23/19 08:21 Dose: 400 mg Tramadol HCl (Ultram) 25 mg PO NOW [facility] Stop: 08/23/19 16:00 Last Admin: 08/23/19 14:52 Dose: 25 mg Zidovudine (Retrovir) 100 mg PO Q8HR [facility] Last Admin: 08/23/19 14:53 Dose: 100 mg Zolpidem Tartrate (Ambien) 5 mg PO HSPRN PRN PRN Reason: Insomnia Last Admin: 08/22/19 20:31 Dose: 5 mg Vital Signs & Weight: Vital Signs Temp Pulse Resp BP BP Pulse Ox 08/23/19 14:53 152/76 H 08/23/19 13:25 75 16 08/23/19 12:00 153/89 H 08/23/19 11:16 78 182/103 H 08/23/19 11:15 182/103 H 94 L 08/23/19 08:22 78 177/96 H 08/23/19 08:00 98.1 F 78 20 177/96 H 92 L Admit Weight 163 lb Weight 167 lb 12.348 oz - Physical Exam General: no apparent distress HEENT: mucus membranes moist Neck: supple neck Cardiac: regular rate and rhythm Lungs: normal breath sounds Neuro: no lateralizing findings Abdomen: active bowel sounds Extremities: no edema Skin: clear Musculoskeletal: no pain - Labs Result Diagrams: 08/23/19 05:25 08/23/19 05:25 Troponin/CKMB CK-MB (CK-2) 3.5 ng/mL (0-6.6) 08/15/19 00:27 Troponin I 0.342 ng/mL (< 0.028) H* 08/15/19 18:22 - Assessment/Plan Assessment/Plan: 1. Type 2 demand ischemia. 2. Pneumonia 3. Healthcare-associated pneumonia 4. ESRD 5. Metabolic encephalopathy, resolved. 6. Pulmonary hypertension. 7. Esophageal cancer. PLAN: - Continue conservative therapy. - Normal LV function. - Elevated right sided pressures, pulmonary HTN. - Fluid control with HD. - May proceed with any surgeries planned for his fistula. He had a normal C in 2017.
[2019-08-23 16:45] VITALS: BP 155/89; TEMP 98.5
[2019-08-24] MEDS ORDERED: Lidocaine Patch Removal 1 EACH TOP SCH (02:00)
--- NOTE | 2019-08-26 08:33 | DIS ---
DATE OF ADMISSION: 08/15/2019 DATE OF DISCHARGE: 08/23/2019 DISCHARGE DIAGNOSES: Acute hypoxic respiratory failure secondary to bilateral pneumonia, severe pulmonary hypertension with diastolic heart failure, severe tricuspid regurgitation, elevated troponin, left acromioclavicular joint arthritis, prior left coracoclavicular ligament fracture, right osteopenia, right-sided rib fracture, anemia, hyponatremia, end stage renal disease, transaminitis, right toe scab status post debridement. CONSULTATIONS: Dr. Herbert Rangel with Nephrology, Dr. Agapito Lawrence with Cardiology, Dr. Godfrey Romero with Orthopedics, Dr. Toney Reyna with General Surgery. BRIEF HISTORY OF PRESENT ILLNESS: This is a 63-year-old male with history of ESRD, COPD, hypertension, HIV, esophageal cancer, hyperlipidemia, who presented to the nurse with long-term with hypoxia to saturation of 60% and shortness of breath. The patient was placed on BiPAP with improvement. The patient was noted to have a lactic acid of 9, potassium of 6.6, troponin of 0.24, and ABG showing a pH of 7.18, pCO2 of 45, and bicarb of 17. The patient was initially admitted to the ICU for BiPAP and sodium bicarb. The patient underwent emergent dialysis upon admission. HOSPITAL COURSE: Acute hypoxic respiratory failure secondary to bilateral pneumonia. The patient was placed empirically on IV vancomycin and cefepime. Blood cultures showed coagulase-negative Staph. The patient was eventually able to be weaned off BiPAP and was back to his baseline oxygen requirement of 2 L on the . He completed six days of IV vancomycin and cefepime in the hospital. He will be discharged with one more day of Omnicef to complete a 7-day course of antibiotics. The patient did have a CT scan of his chest on 08/20, which showed cardiomegaly with some bilateral pleural fluid. Repeat chest x-ray on the after the patient received dialysis was unremarkable. The patient did have some elevated troponin. Cardiology was consulted, did not recommend a cath due to a cath in 2017 that was normal. Echocardiogram on the showed an EF of 60-65%, aortic valve sclerosis, severe tricuspid regurg and right ventricular systolic pressure of 120. The patient did have a V/Q scan done which showed low to intermediate probability of PE. There was a perfusion defect in the right lung, which was stable from 2018. After discussion with Dr. Young, they felt he did not need anticoagulation and he needs to follow up in the Pulmonary Hypertension Clinic on discharge with Dr. Hardy. The patient should follow up with his PCP and Dr. Hardy and consider repeat chest x-ray in 6 weeks. Transaminitis: The patient had presented with an AST of 3500 on the . His AST resolved to 31 on the day of discharge. ALT is still elevated at 421, and alkaline phosphatase is still elevated at 164. The etiology of transaminitis is unclear. However, patient denies any abdominal pain, nausea, or vomiting. This should be repeated as an outpatient. Anemia: The patient has hemoglobin 11.1, MCV 106. This is probably secondary to his ESRD. Vitamin B12 was greater than 2000, folate was normal. The patient can follow up with PCP with regard to further workup. Right arm and left arm pain. The patient reports that he fell back in June and he has been unable to lift up his right and left arm since then. An x-ray from the had shown that the patient had an acromion fracture on the left side. This was never followed up. Therefore, Orthopedics was consulted. Repeat shoulder x-rays showed left AC joint arthritis and evidence of prior injury in the coracoclavicular ligament. The prior fractures involving the medial left clavicle were not seen. In the right shoulder there is no evidence of acute fracture. Orthopedics recommended no acute intervention including steroid injection. They recommended the patient follow up with Pain Management Clinic. The patient takes Tylenol No. 3 as an outpatient. He was prescribed a lidocaine patch. The patient should consider follow up in the pain clinic. He will continue with physical therapy. Right toenail scab. The patient had reported that his right toe was bothering him. The foot x-ray showed swelling on the right foot. Surgery was consulted and cut his toenails on the right side. If this continues to not heal well, Cardiology recommended the patient get a CTA of his lower extremities to evaluate for peripheral vascular disease. History of esophageal cancer: The patient was initially placed on hospice due to untreatable esophageal cancer. However, patient withdrew his hospice services. The patient was supposed to get goiter surgery on his neck. The patient had requested a stress test to clear him for surgery. Cardiology states that they will clear him for any future surgeries as needed. The patient could have this followed up as an outpatient with his ENT. Left pseudoaneurysm: The patient reports that he was requesting that his pseudoaneurysm of his left arm be repaired. This was previously done in the past. However, Dr. Casas aborted the operation since anesthesia was unable to manage his airway due to his large goiter. Per Dr. Reyna, if he is getting is getting operative management of his goiter, then they will consider concurrent repair of the pseudoaneurysms. He can follow up with the general surgery clinic on an as-needed basis. Hypertension: The patient resumed on his outpatient hydralazine. Stage III sacral ulcer: The patient should continue with wound care on discharge. DISCHARGE PHYSICAL EXAMINATION: VITAL SIGNS: Temperature is 98.5, heart rate 75, blood pressure 152/76, the patient on 2 L nasal cannula. GENERAL: The patient is alert, awake, oriented x3 on 2 L nasal cannula. CVS: Regular rate and rhythm with no murmurs, rubs, or gallops. LUNGS: Clear to auscultation bilaterally. ABDOMEN: Positive bowel sounds, soft, nontender, nondistended. EXTREMITIES: No edema. PERTINENT LABORATORY DATA: CBC on 08/23: Shows white count 5.2, hemoglobin 11.1, hematocrit 35.1, platelet count 168. BMP on 08/23: Sodium 134, creatinine is 2.80. LFTs: AST is 31, ALT 421, alkaline phosphatase 164. These are downtrending from earlier this admission. Vitamin B12: Greater than 2000. Folate: 16.0. Toxicology: Random vancomycin is 16.0. PERTINENT IMAGING: Chest x-ray 08/15: Heart size is enlarged. Opacities, left greater than right. Abdominal ultrasound on 08/15: Shows fatty liver with prior cholecystectomy. Abdominal ultrasound on 08/16: Shows no evidence of acute biliary obstruction. Portal venous hypertension. Hepatomegaly. Chest x-ray on 08/19: Cardiomegaly without CHF. Increased density in the left mid lung zone. Atelectasis of the right lung base. Chest CT on 08/20: Shows cardiomegaly. Bilateral pleural effusion with adjacent atelectasis and/or infiltrate. Chest x-ray on 08/21: Shows heart size is enlarged. Consolidation at the lung bases, left greater than right. V/Q scan on 08/21: Shows low to intermediate probability for PE. Foot x-ray on 08/22: Shows subcutaneous soft tissue swelling and chronic changes involving the right foot. There is a tiny erosion involving the 5th metatarsal head. Shoulder x-ray 08/22: Shows left AC joint arthritis. Evidence of prior injury in the region of the coracoclavicular ligament. Previously seen fractures involving the medial left clavicle as well as involving the body of the scapula are not well delineated. Shoulder x-ray, right: Osteopenia with degenerative change involving the right shoulder. No obvious acute fracture. Remote lateral right-sided rib fracture. Echocardiogram 08/15: EF 60-65%. Grade 2/3 diastolic dysfunction. Moderate concentric LVH. Dilated RV with reduced RV systolic function. Mild MR. Aortic valve sclerosis. Severe TR. Elevated RV systolic pressure at 120. DISCHARGE CONDITION: The patient is stable to go back to [facility] on 2 L of oxygen. DIET: Renal diet. ACTIVITY: As tolerated. Consider outpatient PT for right arm and left arm weakness. The patient also needs wound care of his sacral ulcers and outpatient pain management referral for his old fractures and his arms. DISCHARGE MEDICATIONS: New prescriptions: Omnicef 300 mg p.o. daily for 2 more days, lidocaine patch. All other home medications were resumed. Please refer to discharge work sheet. DISCHARGE INSTRUCTIONS: The patient should follow up with PCP in a week. He should get a repeat chest x-ray in 6 weeks for resolution of pneumonia. He should follow up with Dr. Hardy in the pulmonary hypertension clinic. The patient also needs to follow up with a map compiler for his toes. He should consider getting CTA of his lower extremity to assess for peripheral vascular disease if his toenail does not heal. The patient should also follow up with outpatient pain specialist. Job ID: [id number]
== END 2019-08-23 18:46 | DRG 871 ==
LOC: ERS 23:59 → CCU 08-15 02:39 → T4-A 08-16 12:19
PROVIDERS: ADMIT Internal Medicine; ATTEND Internal Medicine
PROC: 5A09357 Assistance with Respiratory Ventilation, Less than 24 Consecutive Hours, Continuous Positive Airway Pressure (ICD-10-PCS; principal; 2019-08-15)
PROC: 5A1D70Z Performance of Urinary Filtration, Intermittent, Less than 6 Hours Per Day (ICD-10-PCS; 2019-08-15)
DX: A41.9 Sepsis, unspecified organism (principal); J18.9 Pneumonia, unspecified organism; N18.6 End stage renal disease; J96.21 Acute and chronic respiratory failure with hypoxia; J96.22 Acute and chronic respiratory failure with hypercapnia; R65.21 Severe sepsis with septic shock; L89.153 Pressure ulcer of sacral region, stage 3; G93.41 Metabolic encephalopathy; K72.00 Acute and subacute hepatic failure without coma; E87.2 Acidosis; I12.0 Hypertensive chronic kidney disease with stage 5 chronic kidney disease or end stage renal disease; E11.52 Type 2 diabetes mellitus with diabetic peripheral angiopathy with gangrene; I96 Gangrene, not elsewhere classified; I24.8 Other forms of acute ischemic heart disease; I50.30 Unspecified diastolic (congestive) heart failure; E87.5 Hyperkalemia; E78.5 Hyperlipidemia, unspecified; Y95 Nosocomial condition; R65.20 Severe sepsis without septic shock; I27.20 Pulmonary hypertension, unspecified; E11.22 Type 2 diabetes mellitus with diabetic chronic kidney disease; D63.1 Anemia in chronic kidney disease; Z21 Asymptomatic human immunodeficiency virus [HIV] infection status; Z99.2 Dependence on renal dialysis; Z90.49 Acquired absence of other specified parts of digestive tract; Z89.612 Acquired absence of left leg above knee; Z85.01 Personal history of malignant neoplasm of esophagus; Z88.1 Allergy status to other antibiotic agents; Z88.8 Allergy status to other drugs, medicaments and biological substances
CPT/HCPCS: 36415; 36416; 71045; 71046; 71250; 76705; 78582; 80048; 80053; 80076; 80202; 82550; 82553; 82607; 82746; 82805; 83605; 83690; 83735; 84100; 84484; 85025; 85027; 87040; 87149; 90935; 93005; 93306; 94640; 94660; A9540; A9558; G0257; J0360; J0692; J1650; J2930; J3370; J3490; J7050; J7512

== ENCOUNTER 2019-08-25 11:31 | Observation (INO) | payer MEDICARE, OTHER, SELFPAY ==
[2019-08-25 12:11] LABS: Hemoglobin 10.9 g/dL (14.0-18.0); Mean Corpuscular HGB CONC 31.8 g/dL (32.0-36.0); Mean Corpuscular Hemoglobin 34.2 pg (27.0-31.0); Mean Platelet Volume 8.9 fL (7.4-10.4); Platelet Count 202 thou/uL (130-400); RBC Distribution Width 20.3 % (11.5-14.5); Red Blood Cell (RBC) Count 3.17 mill/uL (4.70-6.10); White Blood Cell (WBC) Count 5.3 thou/uL (4.8-10.8)
--- NOTE | 2019-08-25 12:19 | RAD ---
XR Chest 1 View Portable History: Fluid overload Comparison: Radiograph August 19, 2019 Findings: Large left and moderate right effusion. Moderate pulmonary edema. Bibasilar airspace opacit ies may reflect confluent edema. Fullness in the right paratracheal soft tissues. Pulmonary arteries are dilated. Heart size markedly enlarged. Impression: Continued findings of volume overload.
[2019-08-25 12:25] LABS: ALT (SGPT) 270 U/L (8-55); AST (SGOT) 24 U/L (5-34); Albumin 3.1 g/dL (3.4-4.8); Alkaline Phosphatase 158 U/L (40-110); Anion Gap 17 mmol/L (10-20); BUN (Urea Nitrogen) 49 mg/dL (8.4-25.7); Bilirubin, Total 0.9 mg/dL (0.2-1.2); Calc. Creatinine Clearance 0 mL/min (70-130); Calcium 9.1 mg/dL (7.8-10.44); Carbon Dioxide 27 mmol/L (23-31); Chloride 97 mmol/L (98-107); Estimated GFR-MDRD 21; Globulin 3.6 g/dL (2.4-3.5); Glucose 110 mg/dL (80-115); Protein, Total 6.7 g/dL (5.8-8.1); Sodium 136 mmol/L (136-145)
[2019-08-25 12:34] LABS: Eosinophils 1 % (0-10); Hypochromia SLIGHT = 6-15 cells (100X) (0-5/hpf); Lymphocytes 10 % (21-51); MDiff Complete? YES; Monocytes 8 % (0-10); Neutrophil 79 % (42-75); Ovalocytes MODERATE= 6-15 cells (100X) (0-1/hpf); Platelet Morphology Comment Appears Adequate; Reactive Lymphocytes 2 % (0-10); Schistocytes SLIGHT = 2-5 cells (100X) (0-1/hpf)
--- NOTE | 2019-08-25 15:38 | HP ---
HISTORY OF PRESENT ILLNESS: Mr. Villeda is a 64-year-old black man. He came to the ER earlier today with complaint of increase in shortness of breath. He has end-stage renal disease and he is on Monday, , and Monday schedule. Yesterday, he was in the Dialysis Center, started dialysis, however, at some point his dialysis needle got infiltrated and dialysis had to stop early. He came to the ER earlier today. He was evaluated, found to be fluid overloaded. His research fellow was consulted. He is being admitted for possible emergent dialysis therapy. He is known to have hypertension, end-stage renal disease, peripheral vascular disease, COPD, coronary artery disease. He is HIV positive and also he was treated for esophageal cancer with chemotherapy and radiation therapy in the past. PAST SURGICAL HISTORY: Remarkable for dialysis access placement, left [id number] amputation, cholecystectomy, and appendectomy. ALLERGIES: HE IS ALLERGIC TO CEPHALEXIN, CIPRO, CLINDAMYCIN, PAXIL, AND FRAGMIN, THIS IS FROM THE REVIEW OF OLD CHART. SOCIAL HISTORY: He is a former smoker. He denies EtOH abuse. He denies substance abuse. FAMILY HISTORY: Reviewed and is not contributory. MEDICATIONS: Home medications reviewed. Prior to admission, he was on; 1. Hydralazine. 2. Nortriptyline. 3. Pantoprazole. 4. Pravastatin. 5. Albuterol inhaler. 6. Calcium acetate. 7. Carvedilol. 8. Gabapentin. 9. Epogen. 10. Flonase. 11. Folic acid. 12. Renaplex. 13. Zidovudine. 14. Aspirin 81 mg daily. 15. Clonidine. 16. Fludrocortisone. 17. Proventil inhaler. 18. Sevelamer. REVIEW OF SYSTEMS: Remarkable for shortness of breath. He denies any fever. Denies any coughing. All other systems as mentioned earlier were reviewed and are negative. PHYSICAL EXAMINATION: GENERAL: At the current time, he is alert, responsive, cooperative, dyspneic at rest. VITAL SIGNS: His latest vital signs show a pulse rate of 90, respiratory rate of 23, blood pressure of 143/89, and temperature of 98.3. HEENT: His head is normocephalic and atraumatic. Both his pupils are equal and reactive. Ears and nose normal. Oral mucosa is moist. Pharyngeal area is clear. NECK: Supple. There is no distention of the jugular vein. No lymphadenopathy felt. Thyroid gland not palpable. There is no carotid bruit. CHEST: Symmetrical with regular S1 and S2. LUNGS: Show some rales at both bases. ABDOMEN: Soft. Bowel sounds heard. We could not appreciate any organomegaly. EXTREMITIES: Limbs show +1 edema. He is status post left [id number] amputation. He has severe weakness of the right leg. LABORATORY DATA: His CBC showed WBC of 5.3, hemoglobin of 10.9, hematocrit of 34.1, MCV of 108, and platelet of 202. His chemistry and lytes show a sodium of 136, potassium of 5, chloride 97, CO2 of 27, BUN 49, creatinine 2.65, glucose 110, calcium 9.1, total bilirubin 0.9, AST 24, ALT 217, alkaline phosphatase 158, total protein 6.7, albumin 3.1, and globulin 3.6. IMAGING DATA: Chest x-ray was reviewed and is consistent with fluid overload. ASSESSMENT AND PLAN: This is a 64-year-old black man with history of hypertension, end-stage renal disease, peripheral vascular disease, chronic obstructive pulmonary disease, positive serology for human immunodeficiency virus, history of esophageal cancer, coronary artery disease, hepatitis C, who is being admitted with fluid overload. His research fellow was consulted. He will have dialysis today. He is being admitted to the medical floor for observation. We will resume his home medications and we will start him on Lovenox for deep venous thrombosis prophylaxis. Job ID: [id number]
[2019-08-26 06:12] VITALS: BMI 21.7
--- NOTE | 2019-08-26 09:56 | CON ---
DATE OF CONSULTATION: CONSULTING PHYSICIAN: Bruce Archuleta MD REQUESTING PHYSICIAN: Dr. Marquez. REASON FOR CONSULTATION: Need for maintenance dialysis. IMPRESSION: 1. End-stage renal disease, on hemodialysis, Monday, , Monday, dialyzed yesterday. 2. Hypervolemia . 3. Pulmonary congestion/respiratory failure. HISTORY OF PRESENT ILLNESS: History is that of a 64-year-old gentleman with end-stage renal disease, huge aneurysms. Mr. Villeda presented here with shortness of breath, obviously fluid overloaded, the need for maintenance dialysis with ultrafiltration necessitated this renal consultation. Past medical history, family history, and social history remained the same. Please for details refer to recent hospitalization. ALLERGIES: CEPHALEXIN, CIPRO, CLINDAMYCIN, PAXIL, FRAGMIN. REVIEW OF SYSTEMS: As documented in the body of the history, the patient's ability to participate in history taking is highly limited. PHYSICAL EXAMINATION: GENERAL: The patient was found to be obviously fluid overloaded. HEENT: Remarkable for facial puffiness. CARDIOVASCULAR: First and second heart sounds were heard. RESPIRATORY SYSTEM: Showed some rales. DIGESTIVE SYSTEM: Revealed a benign abdomen. EXTREMITIES: No peripheral edema. SKIN: No new gross rash. LYMPHATICS: No peripheral lymphadenopathy. SUMMARY: A 64-year-old gentleman with end-stage renal disease, who presented here obviously fluid overloaded. PLAN: Will be to do ultrafiltration on this patient today and remove about 5-6 L of fluid. From the way the patient is looking, we will likely do a daily dialysis for now once the patient is back to his dry weight. Therefore, we will plan on dialyzing the patient tomorrow after we send the patient home. Thank you for this consultation. We will follow with you. Job ID: [id number]
--- NOTE | 2019-08-26 16:37 | PDOC.HOSPP ---
- Subjective Encounter Date: 08/26/19 Encounter Time: 16:36 Subjective: alert, no sob, etc - Objective Vital Signs & Weight: Vital Signs (12 hours) Temp Pulse Resp BP BP Pulse Ox 08/26/19 11:11 98.7 F 92 18 191/108 H 100 08/26/19 10:15 93 L 08/26/19 10:03 93 L 08/26/19 08:00 97.8 F 82 18 161/102 H 91 L 08/26/19 06:00 97.5 F L 82 18 161/93 H 95 08/26/19 05:00 97.5 F L 82 18 161/93 H 95 Weight Admit Weight 143 lb Weight 143 lb Result Diagrams: 08/25/19 11:50 08/25/19 11:50 Hospitalist ROS - Medication Medications: Active Medications Generic Name Dose Route Start Last Admin Trade Name Freq PRN Reason Stop Dose Admin Pneumococcal 13-Valent Conj Vacc 0.5 ml 08/26/19 18:30 08/26/19 09:32 Prevnar IM 08/26/19 18:31 Not Given .ONCE ONE - Exam General Appearance: awake alert Neck: no JVD Heart: RRR, no murmur Respiratory: CTAB Gastrointestinal: soft, no palpable masses Extremities: no edema Hosp A/P (1) DM (diabetes mellitus) Code(s): E11.9 - TYPE 2 DIABETES MELLITUS WITHOUT COMPLICATIONS Status: Chronic Qualifiers: Diabetes mellitus type: type 2 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
[2019-08-26] MEDS ORDERED: Acetaminophen/Codeine 30-300mg Tablet PO PRN ×2 (16:38)
[2019-08-26] MEDS ORDERED: cloNIDine 0.1 MG TAB PO PRN (16:38)
[2019-08-26] MEDS ORDERED: PROVENTIL INHALER 6.7 G (200 INHALATIONS) INH PRN (17:00)
[2019-08-26] MEDS ORDERED: Sevelamer Carbonate 800 MG TAB PO SCH (17:00)
--- NOTE | 2019-08-26 17:17 | PRG ---
DATE OF SERVICE: 08/26/2019 SUBJECTIVE: The patient is seen and examined, noted with the following vital signs. OBJECTIVE: VITAL SIGNS: Afebrile, temperature 98.7, pulse 92, respiratory rate of 18, O2 saturations of on 4 L, and blood pressure 191/108. HEENT: Unremarkable. CARDIOVASCULAR SYSTEM: First and second heart sounds were heard. RESPIRATORY SYSTEM: Revealed some rales. DIGESTIVE SYSTEM: Revealed a benign abdomen. EXTREMITIES: Showed some peripheral edema. SKIN: No new gross rash. LYMPHATICS: No peripheral lymphadenopathy. IMPRESSION: 1. End-stage renal disease, on hemodialysis. 2. Hypervolemia. 3. Hypertension, suboptimally controlled. PLAN: 1. We will go ahead and arrange for this patient to be dialyzed again today with increased ultrafiltration target about 6 L to be taken off today. 2. Afterwards, the patient will remain on his normal schedule of Monday, , and Monday. 3. Further management to be dependent on the clinical course. Job ID: [id number]
--- NOTE | 2019-08-26 17:55 | DIS ---
DATE OF ADMISSION: 08/25/2019 DATE OF DISCHARGE: 08/26/2019 PRIMARY CARE PROVIDER: [facility]. DISPOSITION: Discharged home. FINAL DIAGNOSES: Fluid overload, end-stage renal disease, hypertension, coronary artery disease, human immunodeficiency virus, hepatitis C. DISCHARGE MEDICATIONS: Same as his home medications: 1. Vitamin C daily. 2. Tylenol No.3 with codeine one or two tabs every 6 hours as needed. 3. Etravirine 200 mg p.o. b.i.d. 4. Vitamin B12 1000 mcg a day. 5. Coreg 3.125 mg twice a day. 6. Calcium lactate 650 mg a day. 7. Aspirin 81 mg a day. 8. Gabapentin 300 mg p.o. at bedtime. 9. Folic acid 1 mg a day. 10. Florinef 0.1 mg a day. 11. Spiriva 2.5 mcg inhaled daily. 12. Renvela 800 mg three times a day. 13. Isentress 400 mg twice a day. 14. Pravachol 20 mg a day. 15. Protonix 40 mg a day. 16. Pamelor 25 mg at bedtime. 17. Melatonin 10 mg at bedtime. 18. Hydralazine 25 mg twice a day. 19. Clonidine 0.1 mg p.o. q.4 hours p.r.n. 20. Zidovudine 100 mg p.o. q.8 hours. ALLERGIES: TO CLINDAMYCIN, PAXIL, CEPHALEXIN, CIPROFLOXACIN, FRAGMIN. HOSPITAL COURSE: The patient presented to emergency room with short of breath. He was admitted with volume overload, taken for dialysis twice today by Dr. Bruce Archuleta. Currently, he has stable vital signs. His lungs are clear. His chest x-ray revealed pulmonary vascular congestion. His laboratory revealed a white count of 5.3, hemoglobin 10.9, platelet count of 202,000. Sodium 136, potassium 5.0, BUN 49, creatinine 3.65, ALT 270, alkaline phosphatase 158. The patient has been discharged and follow up with the [facility] in 3 days. He is to follow up with hemodialysis tomorrow on his regular schedule. Job ID: [id number]
[2019-08-26] MEDS ORDERED: Prevnar 13-Val Conj/PF 0.5 ML SYRINGE IM ONE (18:30)
[2019-08-26] MEDS ORDERED: FLU VACC QS2019-20(6MOS UP)/PF 60 MCG/0.5 ML SYRINGE IM ONE (18:30)
[2019-08-26 20:45] VITALS: BP 158/97; TEMP 99.1
[2019-08-26] MEDS ORDERED: Raltegravir Potassium 400 MG TAB PO SCH (21:00)
[2019-08-26] MEDS ORDERED: Melatonin 3 MG TAB PO SCH (21:00)
[2019-08-26] MEDS ORDERED: hydrALAZINE 25 MG TAB PO SCH (21:00)
[2019-08-26] MEDS ORDERED: Carvedilol 3.125 MG TAB PO SCH (21:00)
[2019-08-26] MEDS ORDERED: Nortriptyline HCl 25 MG CAP PO SCH (21:00)
[2019-08-26] MEDS ORDERED: Gabapentin 300 MG CAP PO SCH (21:00)
[2019-08-26] MEDS ORDERED: Simvastatin 5 MG TAB PO SCH (21:00)
[2019-08-27] MEDS ORDERED: Ipratropium Bromide 2.5 ml Neb NEB SCH (07:00)
[2019-08-27] MEDS ORDERED: Folic Acid 1 MG TAB PO SCH (09:00)
[2019-08-27] MEDS ORDERED: Cyanocobalamin (Vitamin B-12) 1,000 MCG TAB PO SCH (09:00)
[2019-08-27] MEDS ORDERED: Ascorbic Acid 500 mg Chewable Tablet PO SCH (09:00)
[2019-08-27] MEDS ORDERED: Aspirin 81 mg Enteric Coated Tablet PO SCH (09:00)
[2019-08-27] MEDS ORDERED: Fludrocortisone Acetate 0.1 MG TAB PO SCH (09:00)
[2019-08-27] MEDS ORDERED: CALCIUM LACTATE 650 MG PO SCH (09:00)
[2019-08-27] MEDS ORDERED: Folic Acid/Vit B Comp W-C PO SCH (09:00)
== END 2019-08-26 22:40 | disposition home or self-care (01) ==
LOC: ERS 11:31 → T4-B 15:06
PROVIDERS: ADMIT Hospitalist; ATTEND Hospitalist
DX: E87.70 Fluid overload, unspecified (principal); I12.0 Hypertensive chronic kidney disease with stage 5 chronic kidney disease or end stage renal disease; E11.22 Type 2 diabetes mellitus with diabetic chronic kidney disease; N18.6 End stage renal disease; J44.9 Chronic obstructive pulmonary disease, unspecified; I25.10 Atherosclerotic heart disease of native coronary artery without angina pectoris; I73.9 Peripheral vascular disease, unspecified; I25.2 Old myocardial infarction; B19.20 Unspecified viral hepatitis C without hepatic coma; Z85.01 Personal history of malignant neoplasm of esophagus; Z87.891 Personal history of nicotine dependence; Z21 Asymptomatic human immunodeficiency virus [HIV] infection status; Z79.2 Long term (current) use of antibiotics; Z79.82 Long term (current) use of aspirin; Z79.899 Other long term (current) drug therapy; Z88.1 Allergy status to other antibiotic agents; Z88.8 Allergy status to other drugs, medicaments and biological substances; Z99.2 Dependence on renal dialysis; Z89.612 Acquired absence of left leg above knee
CPT/HCPCS: 71045; 80053; 85025; 90935; 93005; G0257; G0378

== ENCOUNTER 2019-09-10 08:27 | Inpatient (IN) | payer OTHER ==
[2019-09-10 09:12] LABS: %Eosinophils 0.9 % (0.0-10.0); %Lymphocytes 35.7 % (21.0-51.0); %Monocytes 14.9 % (0.0-10.0); Hemoglobin 12.9 g/dL (14.0-18.0); Mean Corpuscular HGB CONC 31.6 g/dL (32.0-36.0); Mean Corpuscular Hemoglobin 34.8 pg (27.0-31.0); Mean Platelet Volume 9.7 fL (7.4-10.4); Platelet Count 198 thou/uL (130-400); RBC Distribution Width 20.7 % (11.5-14.5); Red Blood Cell (RBC) Count 3.71 mill/uL (4.70-6.10); White Blood Cell (WBC) Count 5.5 thou/uL (4.8-10.8)
[2019-09-10 09:13] LABS: #Basophils 0.1 thou/uL (0.0-0.2); #Eosinphils 0.1 thou/uL (0.0-0.7); #Monocytes 0.8 thou/uL (0.11-0.59); #Neutrophils 2.6 thou/uL (1.40-6.50); %Basophils 1.5 % (0.0-1.0)
[2019-09-10] MEDS ORDERED: Piperacillin/Tazobactam 4.5 GM VIAL ONE (09:27)
--- NOTE | 2019-09-10 09:51 | RAD ---
Portable chest: HISTORY: Fever COMPARISON: 08/25/2019 FINDINGS:Cardiomegaly. Vascular congestion. Bibasilar infiltrates and atelectasis and small bilateral effusions. IMPRESSION:Above findings do not appear significantly changed from prior exam.
[2019-09-10 09:58] LABS: INR-International Normal Ratio 1.2; PTT 34.3 SEC (22.9-36.1); Prothrombin Time 14.9 SEC (12.0-14.7)
[2019-09-10] MEDS ORDERED: Azithromycin 500 MG VIAL ONE (10:05)
[2019-09-10] MEDS ORDERED: Acetaminophen 325 MG TAB ONE (10:05)
[2019-09-10 10:23] LABS: Macrocytosis MODERATE=16-30 cells (100X) (0-5/hpf); Polychromasia SLIGHT = 2-3 cells (100X) (0-2/hpf)
[2019-09-10 10:27] LABS: ALT (SGPT) 16 U/L (8-55); AST (SGOT) 22 U/L (5-34); Albumin 3.3 g/dL (3.4-4.8); Alkaline Phosphatase 121 U/L (40-110); Anion Gap 25 mmol/L (10-20); BUN (Urea Nitrogen) 74 mg/dL (8.4-25.7); Bilirubin, Total 0.9 mg/dL (0.2-1.2); Calc. Creatinine Clearance 0 mL/min (70-130); Calcium 9.6 mg/dL (7.8-10.44); Carbon Dioxide 14 mmol/L (23-31); Chloride 102 mmol/L (98-107); Estimated GFR-MDRD 15; Glucose 81 mg/dL (80-115); Potassium 6.3 mmol/L (3.5-5.1); Protein, Total 7.3 g/dL (5.8-8.1); Sodium 135 mmol/L (136-145)
[2019-09-10] MEDS ORDERED: Vancomycin HCl 500 MG in Sodium Chloride 0.9% 100 ML IVPB SCH ×3 (10:30→16:00)
[2019-09-10 10:41] LABS: CKMB 6.6 ng/mL (0-6.6)
[2019-09-10] MEDS ORDERED: Insulin Regular 300 UNITS/3 ML VIAL ONE (10:58)
[2019-09-10] MEDS ORDERED: Calcium Chloride 1 GM/10 ML Abboject SYRINGE ONE (10:58)
[2019-09-10] MEDS ORDERED: Dextrose 50% Abboject 50 ML SYRINGE ONE (10:58)
[2019-09-10] MEDS ORDERED: Albuterol Sulfate 2.5 mg/3 ml Neb ONE ×2 (11:08→11:09)
[2019-09-10] MEDS ORDERED: EPINEPHrine 1 MG/ML AMP ONE ×2 (11:21→11:24)
[2019-09-10] MEDS ORDERED: EPINEPHrine 1 MG/10 ML Abboject SYRINGE ONE (11:22)
[2019-09-10] MEDS ORDERED: Norepinephrine 8 MG/0.9% NS 250 ML ONE (11:51)
[2019-09-10] MEDS ORDERED: Succinylcholine Chloride 20 MG/ML 10 ml SYRINGE FS ONE (12:13)
[2019-09-10] MEDS ORDERED: Fentanyl 100 MCG/2 ML VIAL ONE ×2 (12:47→13:14)
--- NOTE | 2019-09-10 12:51 | RAD ---
Chest AP view INDICATION: Emergency examination COMPARISON: Prior exam dated September 10, 2019 at 9:44 AM FINDINGS: Lungs:Bilateral lower lobe airspace disease persists Cardiac silhouette:Massive cardiomegaly is stable Pulmonary vasculature:Moderate to prominent vascular congestion persists Pleural spaces:Tiny bilateral pleural effusions persist. No pneumothorax Upper abdomen:No abnormality seen. Osseous structures: No acute osseous abnormality. Additional findings:The patient has been intervally intubated with the ET tube tip seen 6 cm above th e level of hong. There is a gastric catheter now in place projecting below the left hemidiaphragm in the region of the gastric cardia. IMPRESSION: Interval intubation and gastric catheter placement. Persistent cardiomegaly, pulmonary va scular congestion bilateral lower lobe airspace disease and small bilateral pleural effusions.
[2019-09-10 13:03] LABS: Troponin I 0.138 ng/mL (< 0.028)
[2019-09-10 13:05] LABS: Actual Bicarbonate (HCO3a) 19.2 mEq/L (22-28); Base Excess (BEa) -10.5 mEq/L (-2.0 to +3.0); Carboxyhemoglobin (COHb) 2.4 gm% (0.0-3.0); Hemoglobin (Hb) 12.3 g/dL (14.0-18.0); O2 Tension (PaO2) 73.5 mmHg (> 80.0); Potassium - ABG Lab 4.99 mmol/L (3.70-5.30)
[2019-09-10 13:06] LABS: CO2 Tension 60.7 mmHg (35.0-45.0); pH, Arterial 7.12 (7.35-7.45)
[2019-09-10 13:07] LABS: ALV-art Gradient 278.425 (0-20); Puncture Site RRA
[2019-09-10 13:13] LABS: Lactic Acid 4.4 mmol/L (0.5-2.2)
--- NOTE | 2019-09-10 13:33 | CT ---
EXAM: CT brain without contrast HISTORY: Altered mental status COMPARISON: 07/13/2019 TECHNIQUE: Multiple contiguous axial images were obtained and a CT of the brain without contrast. FINDINGS: There are scattered hypodensities in the subcortical and periventricular white matter consi stent with small vessel ischemic disease. There is no evidence of hydrocephalus, intracranial hemorrhage, or extra-axial fluid collection. The calvarium and overlying soft tissues are unremarkable. Mucosal thickening is seen in the nasophar ynx. The visualized paranasal sinuses and mastoid air cells are well aerated. IMPRESSION: No evidence of acute intracranial abnormality
[2019-09-10] MEDS ORDERED: Senokot S 8.6-50 MG TAB PO PRN (13:54)
[2019-09-10] MEDS ORDERED: Ondansetron PF 4 MG/2 ML Vial IVP PRN (13:54)
[2019-09-10] MEDS ORDERED: Ondansetron ODT 4 MG TAB PO PRN (13:54)
[2019-09-10] MEDS ORDERED: Acetaminophen 650 MG Suppository PR PRN (13:54)
[2019-09-10] MEDS ORDERED: Norepinephrine 8 MG/0.9% NS 250 ML IVPB SCH (13:54)
[2019-09-10] MEDS ORDERED: Guaifenesin DM 100-10/5 ML UDCUP PO PRN (13:54)
[2019-09-10] MEDS ORDERED: Acetaminophen 325 MG TAB PO PRN (13:54)
[2019-09-10] MEDS ORDERED: Sodium Chloride 0.9% 1,000 ML IV SCH (13:54)
[2019-09-10] MEDS ORDERED: ZOSYN IVPB PRN (13:59)
[2019-09-10 14:16] VITALS: BMI 21.9
[2019-09-10 15:32] LABS: Vancomycin, Trough 8.5 ug/mL
[2019-09-10] MEDS ORDERED: Morphine 4 MG/ML VIAL SLOW IVP PRN (15:35)
[2019-09-10] MEDS ORDERED: Albumin 25% 25 GM/100 ML BOT IVPB SCH (16:00)
[2019-09-10] MEDS ORDERED: Vancomycin Sliding Scale 1 EACH FS ONE (16:00)
[2019-09-10] MEDS ORDERED: Vancomycin HCl 750 MG in Sodium Chloride 0.9% 250 ML 250 ML IVPB SCH (16:00)
[2019-09-10] MEDS ORDERED: HOLD VANCOMYCIN FOR LEVEL >20 FS SCH (16:00)
[2019-09-10] MEDS ORDERED: Vancomycin HCl 1 GM in Premix Bag 1 BAG IVPB SCH (16:00)
[2019-09-10] MEDS ORDERED: Vancomycin HCl 1.25 GM in Sodium Chloride 0.9% 250 ML 250 ML IVPB SCH (16:00)
[2019-09-10 16:08] LABS: Troponin I 0.403 ng/mL (< 0.028)
[2019-09-10] MEDS: Piperacillin/Tazobactam 2.25 GM in Sodium Chloride 0.9% 100 ML IVPB SCH (16:54)
[2019-09-10] MEDS: Hydrocortisone Sod Succ/PF 100 mg/2 ml Vial IVP SCH ×2 (16:59→21:21)
--- NOTE | 2019-09-10 18:26 | HP ---
PRIMARY CARE PHYSICIAN: [facility] [place]. PRIMARY PUBLIC INFORMATION COORDINATOR: Dr. Barrera. CHIEF COMPLAINT: Altered mental status. HISTORY OF PRESENT ILLNESS: This is a 64-year-old male with a known history of end-stage renal disease, on hemodialysis; HIV infection, on HAART therapy with repeated admissions to the hospital both for volume overload and for bacteremia. The patient most recently had his port out last year that he had been using due to concerns for colonization and an MRSA positive blood culture. The patient reports that he has been feeling bad for the last few days. He reports he has been having pain in his bottom and groin area. He cannot be more specific exactly where. He did state that his testicles hurt, but not exactly the full source of the pain. He does state that his bottom hurts on and off although chronically. The patient went to dialysis today. In dialysis, he was found to be confused. He was found to be wheezing and having some respiratory difficulty, so EMS brought him here. He was apparently hypotensive, tachycardic, and hypoxic when they arrived. On arrival to the ED, his oxygen saturations have been fine, but he was found to be febrile to 101 and hypotensive, systolics down to the 60s. He was given 30 mL/kg fluid bolus with some initial improvement of systolic blood pressures up to the high 80s, but then dropped back down to the 70s, and so, a central line is being placed for Levophed administration. The patient was given vancomycin, azithromycin, and Zosyn in the emergency room. He denies any respiratory complaints or trouble breathing, wheezing, or coughing to me. Denies any fevers at home and just complains of this what he calls groin pain. REVIEW OF SYSTEMS: CONSTITUTIONAL: See HPI. EYES: No double vision or blurred vision. ENT: No congestion, drainage, or sore throat. CARDIOVASCULAR: No chest pain. No palpitations or racing heart. PULMONARY: Denies coughing, wheezing, or shortness of breath currently. See HPI. GASTROINTESTINAL: No abdominal pain. No nausea or vomiting. No diarrhea. He has had a little constipation. GENITOURINARY: He does not produce any urine. See pain complaints as per HPI. MUSCULOSKELETAL: He has some pain in his right knee from his positioning right now, but has not been having significant pain from that leading up to his being in the ER. No other musculoskeletal complaints. SKIN: No rashes or other lesions he has noted. NEUROLOGIC: No new neurologic symptoms like numbness, tingling, or focal weakness. PAST MEDICAL HISTORY: 1. End-stage renal disease, on hemodialysis. 2. HIV infection, on HAART therapy. 3. Diabetes mellitus, type 2, now diet controlled. 4. Anemia secondary to renal insufficiency. 5. Obstructive sleep apnea syndrome. 6. Chronic obstructive pulmonary disease. 7. Diverticulosis. 8. Hyperlipidemia. 9. Thyroid cyst. 10. History of esophageal cancer, treated with chemotherapy and radiation. 11. Hypertension. PAST SURGICAL HISTORY: 1. Hemorrhoidectomy. 2. Amputation of left lower extremity, [id number]. 3. Total left knee replacement previously. 4. Hernia repair x3. 5. Tonsillectomy. 6. Left elbow surgery. 7. Multiple left arm dialysis shunt placements. 8. Cardiac catheterization with normal coronary arteries in 2017. SOCIAL HISTORY: The patient reports he drinks sporadically. Former drug user. Has not used in long time. He is a former smoker, but does not actively currently smoke. FAMILY HISTORY: Significant for heart disease in his 2 younger brothers. ALLERGIES: 1. CIPROFLOXACIN. 2. CLINDAMYCIN. 3. IODINE. 4. PAROXETINE. 5. CEPHALEXIN. 6. DALTEPARIN. 7. PORCINE. MEDICATIONS: Current medications: The patient does not have his current medication list with him. However, he was discharged from the hospital for volume overload less than 2 weeks ago, and he has not had any medication changes since then. The list from that discharge is as follows: 1. Vitamin C daily. 2. Tylenol No. 3 with codeine as needed for pain. 3. Etravirine 200 mg twice a day. 4. Vitamin B12 of 1000 mcg daily. 5. Coreg 3.125 mg twice a day. 6. Calcium lactate 650 mg daily. 7. Aspirin 81 mg daily. 8. Gabapentin 300 mg at night. 9. Folic acid 1 mg daily. 10. Florinef 0.1 mg a day. 11. Spiriva 2.5 mcg inhaled daily. 12. Renvela 800 mg 3 times a day. 13. Isentress 400 mg twice a day. 14. Pravachol 20 mg a day. 15. Protonix 40 mg a day. 16. Pamelor 25 mg at bedtime. 17. Melatonin 10 mg at bedtime. 18. Hydralazine 25 mg twice a day. 19. Clonidine 0.1 mg q.4 hours as needed. 20. Zidovudine 100 mg 3 times a day. PHYSICAL EXAMINATION: VITAL SIGNS: Currently, blood pressure 65/49, pulse 100, respirations 16, temperature 101.1, O2 saturation 98% on 3 L nasal cannula. GENERAL: This is a well-developed, well-nourished, male, who is alert and responsive, but appears ill and reporting pain from his groin area. HEENT: Pupils are 2 mm and reactive to light bilaterally. Oropharynx is clear without lesions, erythema, or exudate. He does have some dry mucous membranes. NECK: Supple. No lymphadenopathy. No thyroid nodules or enlargement. HEART: Mildly tachycardic. Regular rhythm. No murmurs, rubs, or gallops. LUNGS: Clear to auscultation bilaterally after having had a neb. No wheezes, crackles, or rhonchi. ABDOMEN: Soft. Mildly distended. Normoactive bowel sounds. No hepatosplenomegaly or other masses. No tenderness to palpation. EXTREMITIES: The patient has [id number] amputation on the left, and he has some joint effusion on the right, though no redness or warmth overlying it and nontender to palpation. No clubbing, cyanosis, or edema. He has good strong peripheral pulses. SKIN: No rashes or other lesions noted. GENITOURINARY: The patient has bilaterally descended testicles. He reports pain in these areas, but has not seemed uncomfortable when I palpate them. The pain is the same bilaterally. He has no redness to the overlying scrotum. No swelling. No inguinal hernias palpated bilaterally. His penis appears normal and circumcised. He does have some mild scaling of some of the skin in the groin area, which may be a very mild case of tinea, though it looks more like just dry skin. No other rashes. No redness. No evidence of induration or any evidence of infection. NEUROLOGIC: The patient is able to move right upper extremity and bilateral lower extremities to command. He is not moving his left upper extremity at all. I do not remember if he was able to move this previously. The patient does not seem surprised by this and states that he has not been able to move it well for a long time; however, reviewing his previous H and P's, I do not see any mention that he had weakness in the left upper extremity. I do not see any mention of a previous stroke or other etiology of this. PSYCHIATRIC: Alert and oriented x3. Normal mood and affect. LABORATORY DATA: CBC; grossly within normal limits, mild anemia, hemoglobin of 12. INR 1.2. Complete metabolic panel notable for sodium of 135, potassium of 6.3, anion gap of 25, BUN of 74, carbon dioxide of 14, creatinine of 4.385, alkaline phosphatase of 121. Lactic acid was elevated at 2.9. CK-MB was 6.6, troponin was 0.133. Everything else looks good. IMAGING STUDIES: Chest x-ray, I did review the chest x-ray done in the emergency room along with the radiologist's report. It does show cardiomegaly, some vascular congestion, some bibasilar infiltrates and atelectasis, small bilateral effusions. This is similar to previous exams. ASSESSMENT AND PLAN: 1. Septic shock. The patient is febrile, though he has normal white count. He is hypotensive and tachycardic with a history of previous bacteremia. I am concerned that he has had recurrence of this. He has been given vancomycin, Zosyn, and azithromycin already. Central line has been just placed by Dr. Mcwilliams, and Levophed is being started. I did walk back into the room after central line, and the patient is very somnolent. His oxygen saturations are starting to drop, so I discussed with Dr. Mcwilliams, and he is going to go ahead and intubate him. The patient will be being admitted to the ICU. He is critically ill. I did call his sister to let her know that we are putting him in the ICU. 2. Acute hypoxic respiratory failure. This did improve with just some nasal cannula oxygen and nebs earlier; however, it is worsening now, possibly due to the fluid resuscitation that he needed for his shock. He is being intubated and ventilated. The patient will go to dialysis as well and may need to take some of the fluid back off. 3. Hyperkalemia. The patient is going to go to dialysis. Dr. Rangel will be arranging that for Dr. Barrera. 4. Groin pain. I do not see any source for this. Given his evidence of sepsis for now, we will go ahead and have CT of his abdomen and pelvis with contrast once he is stabilized from a critical care standpoint. 5. Left upper extremity weakness. This is a new symptom. The patient reports this has been going on for a while, but on looking back, he has had moved this arm well in all previous admissions. He actually was moving a little bit earlier when he first got here. Concern for the hypertension leading to a stroke. Dr. Epperson has put in for a stat CT scan as well after the intubation. 6. End-stage renal disease, on dialysis. 7. Human immunodeficiency virus. We will need to resume his HAART therapy once he can take p.o. 8. Gastrointestinal prophylaxis. Put the patient on Pepcid twice a day. CODE STATUS: I did discuss this with the patient before he became somnolent. He is a full code. His medical decision maker is his sister, Haley Grant. Job ID: [id number]
--- NOTE | 2019-09-10 19:14 | CON ---
DATE OF CONSULTATION: HISTORY OF PRESENT ILLNESS: Brant Villeda is a 64-year-old gentleman, who is present in the ICU, intubated in the vent, undergoing emergency dialysis. He has a central line access with Levophed and being infused. He presented to the ER with shortness of breath, coughing, and wheezing. Otherwise, he went to dialysis this morning, showed up there for dialysis being altered. Concerned he might have sepsis, was transferred here. Initial blood pressure is 80/48, temperature 101, saturations 90% on 3 L, respiratory rate 18, and pulse 103. After starting him on volume resuscitation and Levophed, he became obtunded. He was intubated. Now in the ICU. He has been here numerous times in the hospital in the last several months. PAST MEDICAL HISTORY: 1. HIV, followed by Infectious Disease. 2. Chronic obstructive pulmonary disease. 3. Chronic renal failure, on dialysis three times a week. 4. History of hypertension. 5. History of hyperlipidemia. 6. History of carcinoma of the esophagus. 7. History of diverticulitis. 8. History of hepatitis C. 9. History of peripheral vascular disease. 10. History of reflux cardiac disease. PAST SURGICAL HISTORY: Previous surgeries; BK amputation, hemorrhoids, appendix, multiple access, multiple staph infection, and sepsis. SOCIAL HISTORY: Apparently, previous substance abuse drugs, cocaine and heroin. Tobacco, quit smoking 10 years ago. ALLERGIES: KEFLEX, CIPRO, CLINDAMYCIN, AND PAXIL. MEDICATIONS: Home medicine: 1. Hydralazine 25 twice a day. 2. Nortriptyline 25. 3. Protonix IV. 4. Pravastatin. 5. Calcium. 6. Coreg 6.25. 7. Gabapentin 300. 8. Epogen. 9. Flonase. 10. Folic acid. 11. Catapres 0.1. 12. Aspirin. 13. Hydrocortisone 0.1. 14. Proventil inhaler. REVIEW OF SYSTEMS: Unable to get a review of systems. PHYSICAL EXAMINATION: VITAL SIGNS: In the ICU, his blood pressure is 128/52, pulse 98, respirations 24, and saturations 90%. GENERAL: He opens his eyes. CHEST: Decreased breath sounds. No wheezing or crackles. CARDIAC: Normal S1 and S2. No gallops or murmurs. LABORATORY DATA: X-ray shows massive cardiomegaly, bilateral infiltrates. White count 5000, H and H 12 and 40, and platelet count 198. A pO2 of 73, pCO2 is 60, pH of 7.12, rate of 16 at 30%. Creatinine is 4, BUN 74, potassium 6.3 4.4. Troponin is normal. IMPRESSION AND PLAN: 1. Acute on chronic respiratory failure. 2. Human immunodeficiency virus. 3. Hypertension. 4. Rule out sepsis syndrome. 5. History of carcinoma of esophagus. 6. Chronic obstructive pulmonary disease, probably it is sleep apnea. He is on Zosyn. I have added some hydrocortisone to his regime. Continue supportive care. Continue neb treatment. We will follow. Try and wean post dialysis in the next 24 to 48 hours. This is a 45-minute critical care time. Job ID: [id number]
--- NOTE | 2019-09-10 19:43 | CON ---
DATE OF CONSULTATION: 09/10/2019 SERVICE: Nephrology. REQUESTING PHYSICIAN: Dr. Pilo Gilbert. REASON FOR CONSULTATION: End-stage renal disease management and hyperkalemia. HISTORY OF PRESENT ILLNESS: A 64-year-old male with known history of end-stage renal disease, on hemodialysis, on Monday, Monday, and Monday; HIV, on anti-retroviral therapy; hypertension; as well as recent multiple hospitalizations for symptoms related to infection and sepsis, now readmitted with mental status change, decreased responsiveness, and hypotension, as well as fever. The patient was hypotensive on presentation to the ER. He was given some IV fluid, following which he did develop worsening shortness of breath requiring intubation. The patient also received IV antibiotics for presumed septic shock. Further evaluation revealed hyperkalemia with serum potassium of 6.3, necessitating Nephrology consult. OBJECTIVE: VITAL SIGNS: Temperature 98.2, pulse 91, respiratory rate 24, SpO2 of 97%, on oxygen supplementation, blood pressure is 125/89. GENERAL: Chronically ill-looking male patient. HEENT: Normocephalic, atraumatic. ET and OG tubes are in place. CARDIOVASCULAR: Regular rhythm and rate with normal heart sounds 1 and 2. Systolic murmur noted. RESPIRATORY: Fair air entry bilaterally with ventilator transmitted breath sounds. GI: Abdomen is distended with hypoactive bowel sounds. UROGENITAL: Ashley catheter is in place. EXTREMITIES: Left AKA noted. Right leg and lower extremity is grossly normal with no obvious edema. TIPPLE WORKER: The patient is sedated. LABORATORY AND DIAGNOSTIC DATA: CBC showed WBC count of 5.5, hemoglobin of 12.9, MCV of 110, platelet of 198. Coagulation panel showed PT 14.9, INR 1.2, PTT 34.3. Arterial blood gas done on presentation showed pH of 7.12, pCO2 of 60.7, pO2 of 73.5. Ionized calcium was 1.30. CMP on presentation showed sodium 135, potassium 6.3, CO2 of 14, chloride 102, anion gap 25, BUN 74, creatinine 4.85, calcium 9.6, total bilirubin 0.9, AST 22, ALT 16, alkaline phosphatase 122, total protein 7.3, albumin 3.3, globulin 4.0. Initial cardiac markers showed CK-MB 6.6, troponin 0.133. Initial lactic acid was 2.9. ASSESSMENT: 1. Hyperkalemia: Due to metabolic acidosis superimposed on end-stage renal disease. 2. End-stage renal disease, on hemodialysis. 3. Inszc-ll-[id number] respiratory failure with hypoxia and hypercarbia. 4. Metabolic acidosis. 5. Septic shock. PLAN: We will plan on dialyzing the patient with 2K bath for hyperkalemia. We will provide ultrafiltration as needed using Crit-Line while monitoring hemodynamic, given hypotension. Further treatment as per safe technician and primary attending. Should the patient get contrast study, we will re-evaluate with reference to volume status and electrolytes with particular emphasis to potassium and we decide on hemodialysis should it be indicated. We will follow along with you. Further treatment to follow depending on hospital course. Job ID: [id number]
[2019-09-10] MEDS: Famotidine 20 MG TAB PO SCH (20:03)
[2019-09-10] MEDS ORDERED: Dextrose 5% in Water 1,000 ML IV PRN (23:03)
[2019-09-10] MEDS ORDERED: Dextrose 50% Abboject 50 ML SYRINGE SLOW IVP PRN (23:03)
[2019-09-10] MEDS ORDERED: Dextrose 50 % In Water 50 ML SYRINGE ONE (23:08)
[2019-09-11] MEDS: Piperacillin/Tazobactam 2.25 GM in Sodium Chloride 0.9% 100 ML IVPB SCH ×3 (00:47→16:50)
[2019-09-11] MEDS: Hydrocortisone Sod Succ/PF 100 mg/2 ml Vial IVP SCH ×4 (04:40→21:41)
[2019-09-11 05:04] LABS: #Monocytes 0.5 thou/uL (0.11-0.59); #Neutrophils 2.1 thou/uL (1.40-6.50); %Basophils 0.8 % (0.0-1.0); %Eosinophils 0.2 % (0.0-10.0); %Lymphocytes 27.9 % (21.0-51.0); %Monocytes 14.1 % (0.0-10.0); Hemoglobin 11.7 g/dL (14.0-18.0); Mean Corpuscular HGB CONC 30.8 g/dL (32.0-36.0); Mean Corpuscular Hemoglobin 33.2 pg (27.0-31.0); Mean Platelet Volume 9.9 fL (7.4-10.4); Platelet Count 201 thou/uL (130-400); RBC Distribution Width 20.8 % (11.5-14.5); Red Blood Cell (RBC) Count 3.53 mill/uL (4.70-6.10); White Blood Cell (WBC) Count 3.6 thou/uL (4.8-10.8)
[2019-09-11 05:29] LABS: Anion Gap 22 mmol/L (10-20); BUN (Urea Nitrogen) 38 mg/dL (8.4-25.7); Calc. Creatinine Clearance 26 mL/min (70-130); Calcium 9.9 mg/dL (7.8-10.44); Carbon Dioxide 23 mmol/L (23-31); Chloride 99 mmol/L (98-107); Estimated GFR-MDRD 25; Potassium 4.1 mmol/L (3.5-5.1); Sodium 140 mmol/L (136-145)
[2019-09-11 05:34] LABS: Glucose 56 mg/dL (80-115)
[2019-09-11 07:17] LABS: Actual Bicarbonate (HCO3a) 23.2 mEq/L (22-28); Base Excess (BEa) 2.6 mEq/L (-2.0 to +3.0); Calcium, Ionized 1.16 mmol/L (1.12-1.30); Carboxyhemoglobin (COHb) 1.4 gm% (0.0-3.0); Hemoglobin (Hb) 11.8 g/dL (14.0-18.0); O2 Tension (PaO2) 67.9 mmHg (> 80.0); Potassium - ABG Lab 4.04 mmol/L (3.70-5.30)
[2019-09-11 07:27] LABS: ALV-art Gradient 186.425 (0-20); CO2 Tension 24.7 mmHg (35.0-45.0); Puncture Site RRA; pH, Arterial 7.59 (7.35-7.45)
--- NOTE | 2019-09-11 08:24 | RAD ---
CHEST 1 VIEW: INDICATION: History of septic shock. COMPARISON: Prior exam dated 09/10/2019. FINDINGS: The patient remains intubated with gastric catheter placement. Cardiomegaly with pulmonary vascular congestion persists. Small bilateral pleural effusions similar appearing. No pneumothorax is eviden t. IMPRESSION: Stable exam. POS: [facility]
[2019-09-11] MEDS: Fludrocortisone Acetate 0.1 MG TAB PO SCH (08:32)
[2019-09-11] MEDS ORDERED: Prevnar 13-Val Conj/PF 0.5 ML SYRINGE IM ONE (09:00)
[2019-09-11] MEDS ORDERED: FLU VACC QS2019-20(6MOS UP)/PF 60 MCG/0.5 ML SYRINGE IM ONE (09:00)
[2019-09-11] MEDS ORDERED: Acetaminophen/Codeine 30-300mg Tablet PO PRN (11:28)
[2019-09-11] MEDS ORDERED: Artificial Tears 18 DROP/0.9 ML EA EYE PRN (11:28)
--- NOTE | 2019-09-11 11:51 | PRG ---
DATE OF SERVICE: 09/11/2019 SUBJECTIVE: The patient is seen and examined at the bedside. He was just extubated this morning by immigration law specialist. He is doing well. He does not have much complaints to offer. He feels fine. OBJECTIVE: VITAL SIGNS: His blood pressure is 139/80, pulse is 86, respirations 22, O2 saturation is 99% on O2 by nasal cannula. HEENT: His pupils are responding to light properly. Sclerae are nonicteric. Conjunctivae are palish. Oral mucosa is moist. LUNGS: Few bilateral inspiratory wheezes present. Breath sounds somewhat diminished at both bases. HEART: S1 and S2 normal. No S3. No S4. ABDOMEN: Soft, nontender, nondistended. Bowel sounds are present. No organomegaly. EXTREMITIES: Left AKA noted. Right leg grossly normal. No obvious edema. GRADUATE STUDENT: The patient is responding to me properly. He moves his extremities. LABORATORY DATA: Labs showed white count of 3.6, hemoglobin of 11.7, hematocrit 38.1, MCV 108, platelet count 201. ABGs from this morning; pH of 7.59, pCO2 of 24.7, PO2 of 67.9, base excess is 2.6. Normal electrolytes. BUN of 38, creatinine 3.05, glucose 56. Glycemia is ranging from 56 to 121. Calcium 9.9. Lactic acid from yesterday 4.4. Troponin-I 0.403. IMPRESSION: 1. Septic shock, started on Levophed and intubated yesterday. At this point, he is status post extubation and status post Levophed infusion. He does not require any vasopressors at this point and the source of his shock is unclear. He is on vancomycin and Zosyn. His abdomen is soft, cannot be the source of the problem, so we are going to stop his CT of the abdomen order. Continue antibiotics. 2. Acute hypoxic respiratory failure, improved, status post extubation. 3. Hyperkalemia, corrected with hemodialysis per spring layer. 4. He complains about some weakness in both upper extremities and it is not very focal, so the idea of getting CT on his brain to rule out stroke is dropped. 5. End-stage renal disease, on dialysis. 6. Human immunodeficiency virus. We will resume his heart therapy and he will remain in ICU today, and later, he will be moved to [facility]. Job ID: [id number]
[2019-09-11 12:50] LABS: Glucose 92 mg/dL (80-115)
[2019-09-11] MEDS: Sevelamer Carbonate 800 MG TAB PO SCH ×2 (13:53→16:50)
[2019-09-11] MEDS: Lidocaine 5% Patch TD SCH (13:53)
[2019-09-11] MEDS: HYDROcodone/Acetaminophen 5/325 mg Tablet PO PRN ×2 (14:05→19:27)
--- NOTE | 2019-09-11 18:06 | PRG ---
DATE OF SERVICE: 09/11/2019 SERVICE: Nephrology. SUBJECTIVE: A 64-year-old male, admitted due to acute mental status change, hypotension, and respiratory failure. Nephrology is seeing the patient for end-stage renal disease management and hyperkalemia. The patient reportedly developed acute mental status change and hypoglycemia as well as hypotension during hemodialysis in the outpatient, and was subsequently brought to the hospital, where he was intubated. He has clinically improved and was extubated earlier on today. The patient is conversational and feels great. Denied nausea or vomiting. Desires to eat some food. OBJECTIVE: VITAL SIGNS: Temperature 98.6, pulse 94, respiratory rate 25, SpO2 of 96 on oxygen supplementation, and blood pressure is 138/83. GENERAL: Chronically ill-looking male, in some distress. The patient however is conversational and looks otherwise comfortable. HEENT: Normocephalic and atraumatic. Oral mucosa is moist. CARDIOVASCULAR: Regular rhythm and rate with normal heart sounds 1 and 2. Systolic murmur noted. RESPIRATORY: Fair air entry bilaterally with few transmitted breath sounds. GI: Abdomen is full, soft with mild diffuse tenderness, especially lower bilaterally. Bowel sound is normoactive. EXTREMITIES: Left AKA noted. Right leg is otherwise unremarkable with trace edema. NEUROLOGY PHYSICIAN ASSISTANT: Conscious, alert, and oriented x3 with appropriate mental status. Cranial nerves 2 through 12 are grossly intact. DIAGNOSTIC DATA: CBC showed WBC count of 3.6, hemoglobin of 11.7, MCV of 108, platelets of 201. BMP today showed sodium of 140, potassium 4.1, chloride 99, CO2 of 23, BUN 38, creatinine 3.05, glucose 56, calcium 9.9. ASSESSMENT: 1. Acute metabolic encephalopathy: Etiology is unclear, but seems to be related to hypoglycemia. The patient has had episodes of hypoglycemia associated with mental status changes. Hypotension from excessive UF during hemodialysis may have been contributory. Occult infection also is another concern as the patient was febrile on presentation to the emergency room. 2. End-stage renal disease, on hemodialysis: The patient was dialyzed yesterday with UF as tolerated. 3. Hyperkalemia: Resolved with hemodialysis. 4. Metabolic acidosis: Due to hypotension and chronic kidney disease. Improved. 5. Acute respiratory failure requiring intubation: Resolved. The patient was extubated earlier today. 6. Acute hypotension/circulatory shock: Etiology is unclear. Infectious etiology, given fever as well as acute cardiac decompensation is a possibility. Blood pressure is currently back to normal and the patient is off pressors. PLAN: 1. Treatment of hypoglycemia as per primary attending. 2. We will continue to monitor the patient closely. Volume status and electrolytes are felt acceptable, hence no indication for dialysis today. We will plan on dialyzing the patient tomorrow in line with his outpatient schedule. Job ID: [id number]
[2019-09-11] MEDS: Raltegravir Potassium 400 MG TAB PO SCH (20:47)
[2019-09-11] MEDS: Gabapentin 300 MG CAP PO SCH (20:47)
[2019-09-11] MEDS: Nortriptyline HCl 25 MG CAP PO SCH (20:47)
[2019-09-11] MEDS: Melatonin 3 MG TAB PO SCH (20:47)
[2019-09-11] MEDS: Famotidine 20 MG TAB PO SCH (20:47)
[2019-09-11] MEDS: Pravastatin Sodium 40 MG TAB PO SCH (20:47)
--- NOTE | 2019-09-11 22:10 | PRG ---
DATE OF SERVICE: SUBJECTIVE: Mr. Villeda is doing better. He says he feels 100% better, and he fell, when he came in. He was extubated this morning after emergent dialysis. He says he is in no distress. He is lying at 15 degrees in bed. OBJECTIVE: VITAL SIGNS: He is afebrile. Heart rate is in the 80s, blood pressure 132/78, respiratory rate is in the 20s, and oximetry is 97%. LUNGS: Clear. HEART: Regular rhythm. ABDOMEN: Soft. EXTREMITIES: Without edema. LABORATORY DATA: White count 3.6, hemoglobin 11.7, and platelets 201,000. Potassium at 04:15 this morning is 4.1, BUN 38, and creatinine 3.05. DIAGNOSTIC STUDIES: Chest x-ray on admission yesterday was reviewed showing pulmonary edema. IMPRESSION: Respiratory failure secondary to pulmonary edema, status post emergent dialysis, clinically improved. He has been extubated. He is clinically stable. Job ID: [id number]
[2019-09-11] MEDS: Lidocaine Patch Removal 1 EACH TOP SCH (23:25)
[2019-09-12] MEDS: Piperacillin/Tazobactam 2.25 GM in Sodium Chloride 0.9% 100 ML IVPB SCH ×2 (01:07→08:33)
[2019-09-12] MEDS: Hydrocortisone Sod Succ/PF 100 mg/2 ml Vial IVP SCH ×4 (03:27→22:11)
[2019-09-12] MEDS: HYDROcodone/Acetaminophen 5/325 mg Tablet PO PRN ×3 (06:36→20:11)
[2019-09-12] MEDS: Sevelamer Carbonate 800 MG TAB PO SCH ×3 (08:33→17:41)
[2019-09-12] MEDS: Aspirin 81 mg Enteric Coated Tablet PO SCH (08:33)
[2019-09-12] MEDS: Fluticasone Propionate Nasal Spray 16 gm Bottle NASAL SCH (08:33)
[2019-09-12] MEDS: Folic Acid 1 MG TAB PO SCH (08:33)
[2019-09-12] MEDS: Ascorbic Acid 500 mg Chewable Tablet PO SCH (08:33)
[2019-09-12] MEDS: Fludrocortisone Acetate 0.1 MG TAB PO SCH (08:34)
[2019-09-12] MEDS: Raltegravir Potassium 400 MG TAB PO SCH ×2 (08:34→20:18)
[2019-09-12] MEDS: Folic Acid/Vit B Comp W-C PO SCH (08:34)
[2019-09-12] MEDS ORDERED: TIOTROPIUM BROMIDE 2.5 MCG IH SCH (09:00)
[2019-09-12 11:50] LABS: Vancomycin, Random 5.5 ug/mL (See Comment)
[2019-09-12] MEDS: Lidocaine 5% Patch TD SCH (11:50)
--- NOTE | 2019-09-12 12:24 | PRG ---
DATE OF SERVICE: 09/12/2019 SUBJECTIVE: The patient is seen and examined at bedside. He looks significantly better. OBJECTIVE: VITAL SIGNS: Blood pressure is 146/96, pulse is 81, respirations 11, O2 saturation is 98% on O2. HEENT: His head is atraumatic and normocephalic. Eyes are PERRLA. Sclerae are nonicteric. Oral mucosa is moist. NECK: Supple. LUNGS: Breath sounds diminished at both bases. HEART: S1, S2, somewhat irregular. No S3. No S4. Systolic murmur at the left sternal border present. EXTREMITIES: Left AKA. OCEAN LIFEGUARD: He is alert and oriented x3. There are no any motor deficits. LABORATORY DATA: None this morning. IMPRESSION: 1. Hypotension, requiring vasopressors, off vasopressors now. Blood pressure is holding in good range. 2. Acute hypoxic respiratory failure, status post extubation, doing well on nasal cannula. 3. Hyperkalemia, resolved with hemodialysis. 4. End-stage renal disease, on dialysis. 5. HIV. PLAN: Transfer to telemetry floor. He is hemodynamically stable at this point. I will stop his vancomycin and Zosyn. We will get ID consult to clarify the etiology of this problem he presented and then we will define the need for antibiotic treatment. We will continue the rest of the regimen and he will get hemodialysis per Dr. Rangel's recommendation. Job ID: [id number]
--- NOTE | 2019-09-12 16:11 | PRG ---
DATE OF SERVICE: 09/12/2019 SERVICE: Nephrology. SUBJECTIVE: A 64-year-old male with end-stage renal disease, seen in followup for end-stage renal disease management. The patient was admitted due to acute mental status change as well as hypotension that started while in outpatient dialysis. The patient is back to baseline. Denied shortness of breath or cough or fever. OBJECTIVE: VITAL SIGNS: Temperature 98.2, pulse 84, respiratory rate 21, SpO2 98% on 2 L nasal cannula, blood pressure is 168/102. GENERAL: Comfortable male patient in no distress. Afebrile. Anicteric. Acyanotic. HEENT: Normocephalic, atraumatic. Oral mucosa is moist. CARDIOVASCULAR: Regular rhythm and rate. Normal heart sounds 1 and 2. Systolic murmur noted. RESPIRATORY: Fair air entry bilaterally with few transmitted breath sounds, but no crackle or rhonchi or use of accessory muscles. GI: Full, soft, nontender, nondistended with normal bowel sounds. EXTREMITIES: Left AKA noted. Right lower extremity is otherwise normal with some chronic atrophic changes. No edema was appreciated. CUSTODIAN BLOOD BANK: Conscious and alert oriented x3 with appropriate mental status. DIAGNOSTIC DATA: Blood sugar today is 125. No renal panel was obtained. ASSESSMENT: 1. End-stage renal disease, on hemodialysis Monday, , and Monday. Stable. 2. Acute respiratory failure: Due to fluid overload related to IV fluid therapy for resuscitation. Resolved. The patient is extubated currently. 3. Acute mental status change: Etiology is unclear. That seems to be related to metabolic encephalopathy due to hypoglycemia and circulatory shock. 4. Recurrent hypoglycemia. PLAN: We will dialyze the patient today in line with his outpatient schedule. We will provide UF as tolerated. Other treatment as per primary attending and aquatics lifeguard. We will follow along with you. We will restart antihypertensives after hemodialysis to get adequate BP control. Job ID: [id number]
--- NOTE | 2019-09-12 16:18 | PRG ---
DATE OF SERVICE: SUBJECTIVE: Mr. Villeda did well overnight. He was stable this morning. OBJECTIVE: VITAL SIGNS: His heart rate was in the 80s, respiratory rate is in the teens, oximetry is 94% on 2 L. LUNGS: He has no wheezing. HEART: Regular rhythm. ABDOMEN: Soft he apparently started sounding like he had retained secretions. Plan to place him on BiPAP to see if this helps. We will continue with dialysis. No new lab today. IMPRESSION: 1. End-stage renal disease. 2. Volume overload, status post emergent dialysis. 3. Retained secretions secondary to lying in bed. 4. Status post mechanical ventilation. At least at this point in time, there is no clinical indication for re-intubation. Hopefully with ongoing dialysis and volume removal, he will continue to improve. Coming into the day, he was positive 1850 mL. His antimicrobial therapy in my opinion can be discontinued and to minimize fluids. Job ID: [id number]
[2019-09-12] MEDS: Gabapentin 300 MG CAP PO SCH (20:10)
[2019-09-12] MEDS: Melatonin 3 MG TAB PO SCH (20:10)
[2019-09-12] MEDS: Pravastatin Sodium 40 MG TAB PO SCH (20:10)
[2019-09-12] MEDS: Nortriptyline HCl 25 MG CAP PO SCH (20:18)
[2019-09-12] MEDS: Lidocaine Patch Removal 1 EACH TOP SCH (23:15)
[2019-09-13 02:58] LABS: Anion Gap 17 mmol/L (10-20); BUN (Urea Nitrogen) 40 mg/dL (8.4-25.7); Calc. Creatinine Clearance 27 mL/min (70-130); Calcium 9.3 mg/dL (7.8-10.44); Carbon Dioxide 26 mmol/L (23-31); Chloride 98 mmol/L (98-107); Estimated GFR-MDRD 26; Glucose 104 mg/dL (80-115); Potassium 4.3 mmol/L (3.5-5.1); Sodium 137 mmol/L (136-145)
[2019-09-13 02:59] LABS: CKMB 3.2 ng/mL (0-6.6)
[2019-09-13 03:09] LABS: #Lymphocytes 0.4 thou/uL (1.20-3.40); #Monocytes 0.5 thou/uL (0.11-0.59); #Neutrophils 2.4 thou/uL (1.40-6.50); %Eosinophils 0.3 % (0.0-10.0); %Lymphocytes 12.2 % (21.0-51.0); %Monocytes 13.8 % (0.0-10.0); %Neutrophils 73.7 % (42.0-75.0); Anisocytosis SLIGHT = 6-15 cells (100X) (0-5/hpf); Hemoglobin 12.1 g/dL (14.0-18.0); MDiff Complete? YES; Macrocytosis SLIGHT = 6-15 cells (100X) (0-5/hpf); Mean Corpuscular HGB CONC 31.3 g/dL (32.0-36.0); Mean Corpuscular Hemoglobin 34.7 pg (27.0-31.0); Mean Platelet Volume 8.7 fL (7.4-10.4); Platelet Count 190 thou/uL (130-400); RBC Distribution Width 20.1 % (11.5-14.5); Red Blood Cell (RBC) Count 3.48 mill/uL (4.70-6.10); White Blood Cell (WBC) Count 3.3 thou/uL (4.8-10.8)
--- NOTE | 2019-09-13 03:33 | PDOC.EVN ---
Event Note - Event Note Event Note: Called to bedside for EKG w/ computer read of lateral stemi, EKG reviewed by me and this finding was actually amall amount J point elevation. Patient seen and examined, no distress no diaphotesis intubated. Troponin sent and 0.7, will continue to trend however this troponin is acutally lower than last troponin from 09/11 so this is likely a downtrending curve. follow up tni ordered for 6 hours from now (8am).
[2019-09-13] MEDS: Hydrocortisone Sod Succ/PF 100 mg/2 ml Vial IVP SCH ×4 (04:29→21:20)
[2019-09-13] MEDS: Ascorbic Acid 500 mg Chewable Tablet PO SCH (07:52)
[2019-09-13] MEDS: Fludrocortisone Acetate 0.1 MG TAB PO SCH (07:52)
[2019-09-13] MEDS: Aspirin 81 mg Enteric Coated Tablet PO SCH (07:52)
[2019-09-13] MEDS: Sevelamer Carbonate 800 MG TAB PO SCH ×3 (07:52→17:16)
[2019-09-13] MEDS: Folic Acid 1 MG TAB PO SCH (07:52)
[2019-09-13] MEDS: Fluticasone Propionate Nasal Spray 16 gm Bottle NASAL SCH (07:53)
[2019-09-13] MEDS: HYDROcodone/Acetaminophen 5/325 mg Tablet PO PRN ×2 (07:59→17:16)
[2019-09-13] MEDS: Folic Acid/Vit B Comp W-C PO SCH (07:59)
[2019-09-13] MEDS: Raltegravir Potassium 400 MG TAB PO SCH ×2 (08:11→21:20)
[2019-09-13] MEDS ORDERED: Aspirin 325 MG TAB ONE (08:25)
[2019-09-13 08:40] LABS: Troponin I 0.693 ng/mL (< 0.028)
[2019-09-13] MEDS: Enoxaparin Sodium 80 MG/0.8 ML SYRINGE SC SCH (09:47)
--- NOTE | 2019-09-13 09:47 | PRG ---
DATE OF SERVICE: 09/13/2019 SUBJECTIVE: The patient is seen and examined at the bedside. He is sitting on his bed and does not have much complaints to offer. He is feeling better. He had some episodes of shortness of breath and he was placed on BiPAP last night. OBJECTIVE: VITAL SIGNS: Blood pressure is 146/90, pulse is 78, respiratory rate is 14, O2 saturation is 98%. HEENT: His head is atraumatic and normocephalic. Eyes are PERRLA. Sclerae are nonicteric. Conjunctivae palish. Oral mucosa is moist. LUNGS: Breath sounds diminished at both bases. HEART: S1, S2 normal. No S3, no S4. ABDOMEN: Soft, nontender. EXTREMITIES: Left AKA. UNDERLAY STITCHER: Alert and oriented x3. There is no any motor deficits. LABORATORY DATA: White count of 3.3, hemoglobin of 12.1, hematocrit 38.7, platelet count 190,000. Electrolytes within normal limits. BUN of 40, creatinine 2.99. Glycemia is ranging from 102 to 132. Troponin 0.710 and 0.693. Calcium 9.3. IMPRESSION: 1. Acute respiratory failure, status post extubation, improved. 2. Type 2 myocardial infarction, developed to ST elevation myocardial infarction. Overnight, the patient had some shortness of breath yesterday during dialysis and was placed on BiPAP. His troponin was checked at night and it was 0.7, so it was lower than the previous one which was 1.8. His EKG at 2:00 a.m. showed minimal change of ST-segment in the lateral leads, but the EKG done this morning showed significant elevation of ST segment and depression in reciprocal leads. The patient received aspirin. He is getting started on Lovenox 1 mg/kg subcutaneous every [address] Lawrence and Dr. Castellanos were contacted regarding the changes. Dr. Lawrence is tied up in the laboratory machinist doing [place] management but as soon as he is free, he will come and evaluate the patient. 3. Hyperkalemia, resolved with hemodialysis. 4. End-stage renal disease, on dialysis. 5. Human immunodeficiency virus, on his HAART regimen. Job ID: [id number]
[2019-09-13] MEDS: Aspirin 325 mg Enteric Coated Tablet PO SCH (09:49)
--- NOTE | 2019-09-13 11:39 | PRG ---
DATE OF SERVICE: 09/13/2019 SUBJECTIVE: Brant Villeda had no complaints this morning. He denied chest pain. He denied shortness of breath. OBJECTIVE: VITAL SIGNS: He is on nasal cannula at 2 L. Oximetry is in the mid-to-high 90s. Heart rate was in the 80s, blood pressure 126/82. LUNGS: Clear. HEART: Regular rhythm. ABDOMEN: Soft. LABORATORY DATA: White count 3.3, hemoglobin 12.1, and platelets 190. Electrolytes are normal. Creatinine is 2.99. IMPRESSION: 1. End-stage renal disease. 2. ST elevation on monitor this morning. His EKG was being repeated. Apparently, this occurred last night and the hospitalist was called. PLAN: Cardiology is being consulted, by the hospitalist this morning. He is not short of breath. Denies chest pain, but I would wonder if some type of coronary ischemia would have explained his transient decompensation while being dialyzed yesterday. Job ID: [id number]
[2019-09-13] MEDS ORDERED: diphenhydrAMINE 50 MG/ML VIAL IVP SCH (12:30)
[2019-09-13] MEDS ORDERED: predniSONE 50 MG TAB PO SCH (12:30)
--- NOTE | 2019-09-13 13:00 | CON ---
DATE OF CONSULTATION: 09/13/2019 REASON FOR CONSULTATION: Abnormal EKG, concern for an acute SD. HISTORY OF PRESENT ILLNESS: Mr. Villeda is a very pleasant 64-year-old gentleman, well known to myself, who comes to the hospital for altered mentation. Originally, he has been treated for pneumonia in the last few weeks and it was thought that this was just an exacerbation of his pneumonia. He also had a fever of 101 and was hypotensive. He was treated initially for septic shock and put in the ICU, had to be intubated due to his altered mentation, eventually extubated and is doing much better. Overnight, he had a change in his EKG on the telemetry, and an EKG was done and it showed a possible lateral ST-elevation SD, so Cardiology has been consulted this morning for this. Mr. Villeda denies any chest pain, tightness, or pressure. No shortness of breath. He actually feels much better. He is fully awake and alert. He recognized me as soon as I walked in and was very pleasant to visit with. He otherwise has no other issues for now. PAST MEDICAL HISTORY: 1. End-stage renal disease, on hemodialysis. 2. HIV on HAART therapy. 3. Type 2 diabetes. 4. Anemia secondary to renal insufficiency. 5. IVONNE. 6. COPD. 7. Diverticulosis. 8. Hyperlipidemia. 9. Thyroid cyst. 10. History of esophageal cancer with chemo and radiation. 11. Hypertension. PAST SURGICAL HISTORY: 1. Hemorrhoidectomy. 2. 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 3. Total left knee replacement previously. 4. Hernia repair. 5. Tonsillectomy. 6. Left elbow surgery. 7. Left arm dialysis shunts multiple times. 8. Cardiac catheterization with normal arteries in 2017. SOCIAL HISTORY: Social alcohol use. Former drug user. Former smoker as well. FAMILY HISTORY: Heart disease in two brothers. OUTPATIENT MEDICATIONS: Include; 1. Vitamin C. 2. Tylenol No. 3. 3. Etravirine. 4. Vitamin B12. 5. Coreg 3.125 b.i.d. 6. Calcium lactate. 7. Aspirin 81. 8. Gabapentin. 9. Folic acid. 10. Florinef 0.1 a day. 11. Spiriva. 12. Renvela. 13. Isentress. 14. Pravachol 20 mg a day. 15. Protonix 40 mg a day. 16. Pamelor. 17. Melatonin. 18. Hydralazine 25 mg twice a day. 19. Clonidine 0.1 mg q.4 hours p.r.n. high blood pressure. 20. Zidovudine. ALLERGIES: 1. CIPRO. 2. CLINDAMYCIN. 3. IODINE. 4. PAROXETINE. 5. CEPHALEXIN. 6. DALTEPARIN. 7. PORCINE. REVIEW OF SYSTEMS: A 12-point review of systems was done and was all negative unless stated in the history of present illness. PHYSICAL EXAMINATION: VITAL SIGNS: Temperature 97.5, pulse 81, respiratory rate 20, saturating 98% on room air, blood pressure 130/86. GENERAL: Awake, alert, oriented x3, in no distress. HEENT: Normocephalic and atraumatic. NECK: Supple. LUNGS: Clear. CARDIOVASCULAR: S1 and S2. No S3 or S4. There is a grade 2/6 systolic murmur at the right upper sternal border. ABDOMEN: Soft. Positive bowel sounds. EXTREMITIES: No edema. SKIN: Warm and dry. LABORATORY DATA: Laboratory work was reviewed. White count of 3.3, hemoglobin of 12, hematocrit 38, and platelet count of 190. Coags were reviewed. ABG was reviewed. Chemistries were reviewed. Troponin went from 0.13 on admission up to 0.4, then 1.8, and then down to 0.7 and 0.6 earlier this morning. Negative blood cultures. Flu titers are negative for both A and B influenza. ASSESSMENT AND PLAN: 1. Cxb-LL-dmnrriflh myocardial infarction. EKG changes are concerning for ischemia, however, there do not seem to be an ST elevation that requires immediate intervention. He had breakfast this morning and he is pain free at this time. We will plan on giving him prednisone to pretreat with for an iodine allergy and we will try to do this later in the afternoon to give the prednisone time to kick in and his food to be digested a little bit more. 2. We spoke at length about the risks and benefits of the procedure. Risks included, but not limited to, stroke, SD, , bleeding, need for blood transfusion, limb loss, organ loss, allergy to iodine. He understands and verbalized understanding of this and agrees to proceed. 3. Further recommendations per results of coronary angiogram. Job ID: [id number]
[2019-09-13 15:03] LABS: Critical Call Chem Troponin I RESULT DECREASING
--- NOTE | 2019-09-13 16:39 | PRG ---
DATE OF SERVICE: 09/13/2019 SERVICE: Nephrology. SUBJECTIVE: A 64-year-old male patient seen in followup for end-stage renal disease management. The patient was initially admitted due to mental status change and circulatory shock as well as respiratory failure. The patient had an episode of diaphoresis during hemodialysis yesterday, that evaluation with blood glucose and BP monitoring were unremarkable. He later developed worsening shortness of breath, which resolved with commencement of BiPAP. Symptoms are completely resolved at this time. This, however, is worrisome as current admission was due to acute onset of mental status change and hypertension that developed during hemodialysis. The patient denied fever, chest pain, or shortness of breath. He seems back to baseline. OBJECTIVE: VITAL SIGNS: Temperature 97.5, pulse 81, respiratory rate 20, SpO2 of 100% on 3 L nasal cannula, and blood pressure is 146/90. GENERAL: Chronically ill-looking male, in no distress. Afebrile. Anicteric. Acyanotic. HEENT: Normocephalic, atraumatic. Oral mucosa is moist. NECK: Supple with no JVD. CARDIOVASCULAR: Regular rhythm and rate with normal heart sounds 1 and 2. Systolic murmur noted. RESPIRATORY: Fair air entry bilaterally with few transmitted breath sounds. No obvious crackle or rhonchi or use of accessory muscles was appreciated. GASTROINTESTINAL: Full, soft, nondistended with normal bowel sounds. EXTREMITIES: Left AKA noted. Right leg is grossly normal. 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 CENTRAL NERVOUS SYSTEM: Conscious and alert and oriented x3 with appropriate mental status. Cranial nerves II through XII are grossly intact. DIAGNOSTIC DATA: CBC showed WBC count of 3.3, hemoglobin of 12.1, MCV of 111, and platelet of 190. Renal function panel showed sodium 137, potassium 4.3, chloride 98, CO2 of 26, BUN 40, creatinine 2.99, glucose 104, and calcium 9.3. ASSESSMENT AND PLAN: 1. End-stage renal disease, on hemodialysis. The patient had hemodialysis yesterday, stable. Volume status, electrolytes and acid-base are acceptable. No indication for hemodialysis today. 2. Transient episode of hemodynamic instability and diaphoresis during hemodialysis. Etiology is unclear. Query cardiac dysfunction. The patient has elevated troponin and is being evaluated for this. 3. Hypertension: Control is acceptable. We will continue current antihypertensives and adjust dose to get adequate BP control. 4. Transient respiratory failure during hemodialysis: Most likely related to acute cardiac decompensation and etiology remains very unclear at this time. 5. Human immunodeficiency virus, on treatment. Job ID: [id number]
[2019-09-13] MEDS ORDERED: Lidocaine 1% (PF) 30 ML VIAL ONE (16:59)
[2019-09-13] MEDS ORDERED: Heparin (Artline) 1,000 ML ONE (16:59)
[2019-09-13] MEDS: Lidocaine 5% Patch TD SCH (17:00)
[2019-09-13] MEDS: Polyethylene Glycol 3350 17 GM Packet PO SCH (21:13)
[2019-09-13] MEDS: Gabapentin 300 MG CAP PO SCH (21:19)
[2019-09-13] MEDS: Nortriptyline HCl 25 MG CAP PO SCH (21:19)
[2019-09-13] MEDS: Pravastatin Sodium 40 MG TAB PO SCH (21:19)
[2019-09-13] MEDS: Melatonin 3 MG TAB PO SCH (21:35)
[2019-09-14] MEDS: Lidocaine Patch Removal 1 EACH TOP SCH (00:02)
[2019-09-14] MEDS: HYDROcodone/Acetaminophen 5/325 mg Tablet PO PRN ×2 (00:05→19:55)
[2019-09-14] MEDS: Hydrocortisone Sod Succ/PF 100 mg/2 ml Vial IVP SCH ×4 (04:45→20:45)
[2019-09-14 04:55] LABS: #Lymphocytes 0.8 thou/uL (1.20-3.40); #Monocytes 0.5 thou/uL (0.11-0.59); #Neutrophils 2.1 thou/uL (1.40-6.50); %Eosinophils 0.2 % (0.0-10.0); %Lymphocytes 24.6 % (21.0-51.0); %Monocytes 13.1 % (0.0-10.0); %Neutrophils 62.1 % (42.0-75.0); Hemoglobin 11.8 g/dL (14.0-18.0); Mean Corpuscular HGB CONC 31.5 g/dL (32.0-36.0); Mean Corpuscular Hemoglobin 34.7 pg (27.0-31.0); Mean Platelet Volume 9.5 fL (7.4-10.4); Platelet Count 199 thou/uL (130-400); RBC Distribution Width 20.4 % (11.5-14.5); White Blood Cell (WBC) Count 3.4 thou/uL (4.8-10.8)
[2019-09-14 05:17] LABS: Anion Gap 22 mmol/L (10-20); BUN (Urea Nitrogen) 59 mg/dL (8.4-25.7); Calc. Creatinine Clearance 22 mL/min (70-130); Calcium 9.2 mg/dL (7.8-10.44); Carbon Dioxide 21 mmol/L (23-31); Chloride 97 mmol/L (98-107); Estimated GFR-MDRD 21; Glucose 102 mg/dL (80-115); Potassium 6.1 mmol/L (3.5-5.1); Sodium 134 mmol/L (136-145)
[2019-09-14] MEDS: Raltegravir Potassium 400 MG TAB PO SCH ×2 (08:43→20:44)
[2019-09-14] MEDS: Sevelamer Carbonate 800 MG TAB PO SCH ×3 (08:43→19:04)
[2019-09-14] MEDS: Folic Acid 1 MG TAB PO SCH (08:44)
[2019-09-14] MEDS: Folic Acid/Vit B Comp W-C PO SCH (08:44)
[2019-09-14] MEDS: Aspirin 325 mg Enteric Coated Tablet PO SCH (08:44)
[2019-09-14] MEDS: Ascorbic Acid 500 mg Chewable Tablet PO SCH ×2 (08:44→08:46)
[2019-09-14] MEDS: Fludrocortisone Acetate 0.1 MG TAB PO SCH (08:44)
[2019-09-14] MEDS: Fluticasone Propionate Nasal Spray 16 gm Bottle NASAL SCH (08:46)
[2019-09-14] MEDS: Sodium Chloride 0.9% 10 ML ONE (08:47)
[2019-09-14] MEDS: Enoxaparin Sodium 80 MG/0.8 ML SYRINGE SC SCH (08:47)
--- NOTE | 2019-09-14 11:49 | PRG ---
DATE OF SERVICE: 09/14/2019 SERVICE: Nephrology. SUBJECTIVE: A 64-year-old male, seen in followup for end-stage renal disease management. No new problem. Denied shortness of breath, nausea, or vomiting. Last hemodialysis was on September 12, 2019. OBJECTIVE: VITAL SIGNS: Temperature 96.9, pulse 80, respiratory rate 18, SpO2 of 100% on 2 L nasal cannula, blood pressure is 167/93. GENERAL: Chronically ill-looking male, in no distress. Afebrile. Anicteric. Acyanotic. HEENT: Normocephalic, atraumatic. Oral mucosa is moist. CARDIOVASCULAR: Regular rhythm and rate with normal heart sounds 1 and 2. Systolic murmur noted. RESPIRATORY: Fair air entry bilaterally with no obvious crackle or rhonchi or use of accessory muscles. GI: Full, soft, nontender, nondistended with normal bowel sounds. EXTREMITIES: Left AKA noted as well as left forearm AV fistula with aneurysmal dilatation. Other extremities are grossly normal. AUTO PAINTER HELPER: Conscious, alert, oriented x3 with appropriate mental status. Cranial nerves are grossly intact. DIAGNOSTIC DATA: CBC showed WBC count of 3.4, hemoglobin of 11.8, and platelets of 199. BMP showed sodium 134, potassium 6.1, chloride 97, CO2 of 21, BUN 59, creatinine 3.62, calcium 9.2. ASSESSMENT: 1. Hyperkalemia. 2. Metabolic acidosis. 3. End-stage renal disease, on hemodialysis Monday, , and Monday. 4. Anemia in chronic kidney disease. 5. Hypertension: Control is fair. PLAN: We will dialyze the patient today with 2K bath for 4 hours with UF as tolerated. We will monitor blood pressure post hemodialysis and adjust antihypertensives to get adequate BP control. Other treatment as per primary attending. Continue to follow along with you. Job ID: [id number]
[2019-09-14] MEDS: Polyethylene Glycol 3350 17 GM Packet PO SCH ×2 (15:38→20:45)
[2019-09-14] MEDS: Lidocaine 5% Patch TD SCH (15:38)
[2019-09-14] MEDS: cloNIDine 0.1 MG TAB PO PRN (15:40)
--- NOTE | 2019-09-14 15:59 | PRG ---
DATE OF SERVICE: 09/14/2019 SUBJECTIVE: The patient is seen and examined at the bedside. He just came back from his hemodialysis. He does not have much complaints to offer. He is doing BiPAP at night. OBJECTIVE: VITAL SIGNS: Blood pressure is 167/93, pulse is 80, temperature is 96.9, respirations 18, O2 saturation is 100% on 2 L by nasal cannula. HEENT: His pupils are responding to light properly. Sclerae are nonicteric. Conjunctivae are palish. Oral mucosa is moist. NECK: Supple. LUNGS: Breath sounds diminished at both bases. HEART: S1, S2, somewhat irregular. No S3. No S4. ABDOMEN: Soft, nontender, nondistended. EXTREMITIES: Left BKA present. NEUROLOGIC: Not changed. He is awake and able to converse with me. He is able to move his all 4 extremities. LABORATORY DATA: Labs showed a white count of 3.4, hemoglobin 11.8, hematocrit 37.5, platelet count is 199,000. Sodium 134, potassium 6.1, chloride 97, CO2 of 21, BUN 59, creatinine 3.62. The rest of chemistry is within normal limits. His glycemia is ranging from 78 to 123. His last troponin was yesterday 0.670. IMPRESSION AND PLAN: 1. Acute respiratory failure, status post mechanical ventilation. 2. Myocardial infarction with elevation of ST-segment, status post cardiac catheterization yesterday, and apparently there was not much finding on this procedure/testing, but we are waiting for the final report from Dr. Lugo. 3. Hyperkalemia. This morning, again he just had dialysis, supervised by Dr. Rangel. 4. End-stage renal disease, on dialysis. 5. Human immunodeficiency virus, on HAART regimen. 6. Chronic anemia secondary to renal disease. We will stop his fludrocortisone. His blood pressure is doing well. We will continue the current regimen. Job ID: [id number]
[2019-09-14] MEDS: Nortriptyline HCl 25 MG CAP PO SCH (20:44)
[2019-09-14] MEDS: Melatonin 3 MG TAB PO SCH (20:44)
[2019-09-14] MEDS: Pravastatin Sodium 40 MG TAB PO SCH (20:45)
[2019-09-14] MEDS: hydrALAZINE 25 MG TAB PO SCH (20:45)
[2019-09-14] MEDS: Gabapentin 300 MG CAP PO SCH (20:45)
[2019-09-14] MEDS: Carvedilol 6.25 MG TAB PO SCH (20:45)
--- NOTE | 2019-09-14 23:29 | PRG ---
DATE OF SERVICE: SERVICE: Pulmonary Medicine. INTERVAL HISTORY: Patient is actually breathing pretty well today. His biggest complaint is that his back side hurts. He denies any current fevers or chills. He coughed up one glob of white phlegm early in the morning. That being said, since it has happened, he has not had any additional cough. He is not having any nausea or vomiting. PHYSICAL EXAMINATION: VITAL SIGNS: Afebrile, pulse 77, blood pressure 166/96, respirations 16, and saturation 96% on 3 L nasal cannula. HEENT: Normocephalic and atraumatic. Sclerae white. Conjunctivae pink. Oral mucosa is moist without lesions. LUNGS: Decent air entry. There is no prolonged expiratory phase of rhonchi present. Dependent crackles are minimal. HEART: Normal rate. Regular. ABDOMEN: Soft. Distended. Bowel sounds are present. There is no rebound or guarding. It is nontender to palpation. : No Ashley. MUSCULOSKELETAL: No cyanosis or clubbing. There is no pitting in the right lower extremity. Left lower extremity is surgically absent. NEUROLOGIC: Grossly nonfocal. LABORATORY DATA: WBC 3.4, hemoglobin 11.8, and platelets 199,000. Potassium 6.1, sodium 134. Creatinine 3.62. BUN 59. Basic metabolic profile is otherwise unremarkable. Vancomycin trough 5.5. Blood cultures x2, influenza A and B are unremarkable. ASSESSMENT: 1. Acute hypoxic respiratory failure, resolving. 2. Pig-PY-[id number] myocardial infarction. 3. End-stage renal disease, on hemodialysis. 4. Human immunodeficiency virus. 5. Decubitus ulcers, present on admission. DISCUSSION AND PLAN: We will ask the nursing staff to rotate the patient every 2 hours. At this point, Pulmonary will continue to follow, intermittently during this hospital stay. We will wean away oxygen as tolerated. Please call with additional questions or concerns through the weekend. Job ID: [id number]
[2019-09-15] MEDS: Lidocaine Patch Removal 1 EACH TOP SCH (00:36)
[2019-09-15] MEDS: Hydrocortisone Sod Succ/PF 100 mg/2 ml Vial IVP SCH ×4 (05:24→21:23)
[2019-09-15] MEDS: HYDROcodone/Acetaminophen 5/325 mg Tablet PO PRN (05:29)
[2019-09-15] MEDS ORDERED: Sodium Chloride 0.9% 10 ML ONE ×2 (08:35→14:56)
[2019-09-15] MEDS: Folic Acid 1 MG TAB PO SCH (09:14)
[2019-09-15] MEDS: Aspirin 325 mg Enteric Coated Tablet PO SCH (09:14)
[2019-09-15] MEDS: Carvedilol 6.25 MG TAB PO SCH ×2 (09:14→21:24)
[2019-09-15] MEDS: Sevelamer Carbonate 800 MG TAB PO SCH ×3 (09:14→17:12)
[2019-09-15] MEDS: Raltegravir Potassium 400 MG TAB PO SCH ×2 (09:14→21:25)
[2019-09-15] MEDS: Folic Acid/Vit B Comp W-C PO SCH (09:14)
[2019-09-15] MEDS: hydrALAZINE 25 MG TAB PO SCH ×2 (09:15→21:25)
[2019-09-15] MEDS: Cyanocobalamin (Vitamin B-12) 1,000 MCG TAB PO SCH (09:16)
[2019-09-15] MEDS: Ascorbic Acid 500 mg Chewable Tablet PO SCH (09:16)
[2019-09-15] MEDS: Polyethylene Glycol 3350 17 GM Packet PO SCH ×2 (09:16→21:25)
[2019-09-15] MEDS: Enoxaparin Sodium 80 MG/0.8 ML SYRINGE SC SCH (09:16)
[2019-09-15] MEDS: Fluticasone Propionate Nasal Spray 16 gm Bottle NASAL SCH (09:17)
[2019-09-15] MEDS: Acetaminophen/Codeine 30-300mg Tablet PO PRN ×2 (10:49→18:21)
[2019-09-15] MEDS: Lidocaine 5% Patch TD SCH (10:51)
[2019-09-15] MEDS: Sodium Chloride 0.9% 10 ML ONE (10:52)
[2019-09-15 11:40] LABS: Anion Gap 18 mmol/L (10-20); BUN (Urea Nitrogen) 43 mg/dL (8.4-25.7); Calc. Creatinine Clearance 27 mL/min (70-130); Calcium 9.2 mg/dL (7.8-10.44); Carbon Dioxide 27 mmol/L (23-31); Chloride 95 mmol/L (98-107); Estimated GFR-MDRD 27; Glucose 120 mg/dL (80-115); Sodium 135 mmol/L (136-145)
--- NOTE | 2019-09-15 13:20 | PRG ---
DATE OF SERVICE: 09/15/2019 SUBJECTIVE: The patient is seen and examined at the bedside. He is doing quite well. His appetite is fair, but he complains about some pain in his bottom. He does not think he is getting adequate pain control. OBJECTIVE: VITAL SIGNS: Blood pressure is 135/80, pulse is 71, temperature is 97.2, respirations 18, O2 saturation is 93% on 2 L by nasal cannula. HEENT: His pupils are responding to light properly. Sclerae are nonicteric. Conjunctivae palish. Oral mucosa is moist. LUNGS: Breath sounds diminished at both bases. HEART: S1, S2, somewhat irregular. No S3. No S4. There is a systolic murmur at the left sternal border 2/6. ABDOMEN: Soft, nontender, nondistended. EXTREMITIES: Left BKA is present. NEUROLOGIC: Not changed. LABORATORY DATA: Sodium of 135, potassium 5.0, chloride 95, CO2 of 27, BUN 43, creatinine 2.92. Glycemia is ranging from 117 to 160. Calcium is 9.2. IMPRESSION: 1. Acute respiratory failure, status post mechanical ventilation. 2. Myocardial infarction with elevated ST-segment, status post cardiac catheterization. 3. Hyperkalemia, improved with dialysis. 4. End-stage renal disease, on dialysis per Dr. Rangel. 5. Human immunodeficiency virus, on HAART regimen. 6. Chronic anemia secondary to renal disease. The patient will continue current regimen and I am not planning to give him more opioids. He is getting from 1 to 2 tablets every 4 hours p.r.n. as needed hydrocodone for his decubitus. His blood pressure is stable and he should be able to go home as soon as Cardiology is clearing him up from their point. Job ID: [id number]
[2019-09-15] MEDS: Melatonin 3 MG TAB PO SCH (21:24)
[2019-09-15] MEDS: Nortriptyline HCl 25 MG CAP PO SCH (21:24)
[2019-09-15] MEDS: Gabapentin 300 MG CAP PO SCH (21:25)
[2019-09-15] MEDS: Pravastatin Sodium 40 MG TAB PO SCH (21:25)
--- NOTE | 2019-09-15 23:26 | PRG ---
DATE OF SERVICE: 09/15/2019 SERVICE: Nephrology. SUBJECTIVE: A 64-year-old male seen in followup for end-stage renal disease management. The patient was admitted due to mental status change and circulatory shock. He was treated with IV fluid and developed respiratory failure, requiring intubation. Clinically improved and extubated. Feeling good. Last hemodialysis was yesterday on September 14, 2019. The patient continued to complain of neuropathy of both upper limbs, but denies shortness of breath or chest pain. OBJECTIVE: VITAL SIGNS: Temperature 97.2, pulse 71, respiratory rate 18, SpO2 of 93% on 2 L nasal cannula, and blood pressure is 135/80. GENERAL: Chronically ill-looking male, in no distress. Afebrile. Anicteric. Acyanotic. HEENT: Normocephalic, atraumatic. Oral mucosa is moist. NECK: Supple with no JVD. CARDIOVASCULAR: Regular rhythm and rate with normal heart sounds one and two. Systolic murmur noted. RESPIRATORY: Fair air entry bilaterally with some transmitted breath sounds, but no obvious crackle or rhonchi or use of accessory muscles. GI: Full, soft, nontender, nondistended with normal bowel sounds. EXTREMITIES: Left AKA noted. 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 Mild edema of both hands noted. Right leg however is without edema. COMPUTER SYSTEMS INTEGRATOR: Conscious, alert, and oriented x3 with appropriate mental status. DIAGNOSTIC DATA: BMP showed sodium of 135, potassium 5.0, chloride 95, CO2 of 27, BUN 43, creatinine 2.92, glucose 120, calcium 9.2. ASSESSMENT: 1. End-stage renal disease, on hemodialysis Monday, , Monday. Stable. Last hemodialysis was yesterday on September 14, 2019. 2. Hypertension: Control is acceptable. 3. Anemia in chronic kidney disease. There is no indication for hemodialysis today. We will plan on dialyzing the patient on Monday in line with his outpatient dialysis schedule. Further treatment to follow depending on hospital course. Job ID: [id number]
--- NOTE | 2019-09-16 00:02 | EKG ---
Test Reason : Blood Pressure : / mmHG Vent. Rate : 087 BPM Atrial Rate : 087 BPM P-R Int : 180 ms QRS Dur : 114 ms QT Int : 388 ms P-R-T Axes : 056 095 -22 degrees QTc Int : 466 ms Sinus rhythm with marked sinus arrhythmia Rightward axis Minimal voltage criteria for LVH, may be normal variant Inferior infarct , age undetermined Abnormal ECG When compared with ECG of 10-SEP-2019 09:01, (Unconfirmed) Criteria for Anterior infarct are no longer Present Inferior infarct is now Present ST less depressed in Anterior leads Confirmed by John KAYE ([id number]) on 09/16/2019 12:01:55 AM Referred By: KB Confirmed By:John KAYE
--- NOTE | 2019-09-16 00:12 | EKG ---
Test Reason : CP Blood Pressure : / mmHG Vent. Rate : 070 BPM Atrial Rate : 070 BPM P-R Int : 174 ms QRS Dur : 102 ms QT Int : 420 ms P-R-T Axes : 033 110 003 degrees QTc Int : 453 ms Normal sinus rhythm Right ventricular hypertrophy ST elevation consider lateral injury or acute infarct ACUTE MS / STEMI Abnormal ECG When compared with ECG of 11-SEP-2019 13:25, (Unconfirmed) Criteria for Inferior infarct are no longer Present ST more elevated in Lateral leads T wave inversion less evident in Inferior leads Confirmed by John KAYE ([id number]) on 09/16/2019 12:11:54 AM Referred By: CAROLINE Confirmed By:John KAYE
--- NOTE | 2019-09-16 00:13 | EKG ---
Test Reason : Blood Pressure : / mmHG Vent. Rate : 080 BPM Atrial Rate : 080 BPM P-R Int : 172 ms QRS Dur : 122 ms QT Int : 386 ms P-R-T Axes : 032 111 -38 degrees QTc Int : 445 ms Normal sinus rhythm Left posterior fascicular block Left ventricular hypertrophy with QRS widening Inferior infarct , age undetermined Lateral injury pattern * ACUTE [place] * Abnormal ECG When compared with ECG of 13-SEP-2019 02:08, (Unconfirmed) Inferior infarct is now Present Confirmed by John KAYE ([id number]) on 09/16/2019 12:13:21 AM Referred By: KB Confirmed By:John KAYE
[2019-09-16] MEDS: HYDROcodone/Acetaminophen 5/325 mg Tablet PO PRN ×3 (01:28→20:57)
[2019-09-16] MEDS: Lidocaine Patch Removal 1 EACH TOP SCH (01:28)
[2019-09-16 05:06] LABS: Anion Gap 19 mmol/L (10-20); BUN (Urea Nitrogen) 59 mg/dL (8.4-25.7); Calc. Creatinine Clearance 23 mL/min (70-130); Carbon Dioxide 24 mmol/L (23-31); Chloride 96 mmol/L (98-107); Estimated GFR-MDRD 23; Glucose 116 mg/dL (80-115); Sodium 133 mmol/L (136-145)
[2019-09-16] MEDS: Hydrocortisone Sod Succ/PF 100 mg/2 ml Vial IVP SCH ×4 (06:14→21:08)
[2019-09-16] MEDS: CALCIUM LACTATE 650 MG PO SCH ×4 (07:45→07:48)
[2019-09-16] MEDS: Folic Acid 1 MG TAB PO SCH (09:05)
[2019-09-16] MEDS: Ascorbic Acid 500 mg Chewable Tablet PO SCH (09:06)
[2019-09-16] MEDS: Calcium Carbonate 600 MG TAB PO SCH (09:06)
[2019-09-16] MEDS: Sevelamer Carbonate 800 MG TAB PO SCH ×3 (09:06→18:07)
[2019-09-16] MEDS: Cyanocobalamin (Vitamin B-12) 1,000 MCG TAB PO SCH (09:06)
[2019-09-16] MEDS: Folic Acid/Vit B Comp W-C PO SCH (09:06)
[2019-09-16] MEDS: hydrALAZINE 25 MG TAB PO SCH ×2 (09:07→20:56)
[2019-09-16] MEDS: Carvedilol 6.25 MG TAB PO SCH ×2 (09:07→20:57)
[2019-09-16] MEDS: Polyethylene Glycol 3350 17 GM Packet PO SCH ×2 (09:08→20:59)
[2019-09-16] MEDS: Raltegravir Potassium 400 MG TAB PO SCH ×2 (09:08→20:58)
[2019-09-16] MEDS: Enoxaparin Sodium 80 MG/0.8 ML SYRINGE SC SCH (09:09)
[2019-09-16] MEDS: Fluticasone Propionate Nasal Spray 16 gm Bottle NASAL SCH (09:10)
[2019-09-16] MEDS: Aspirin 325 mg Enteric Coated Tablet PO SCH (09:13)
--- NOTE | 2019-09-16 09:46 | PRG ---
DATE OF SERVICE: 09/16/2019 SUBJECTIVE: The patient was seen and examined, seems to be doing much better. OBJECTIVE: VITAL SIGNS: Noted with the following vital signs. Temperature 98.2, pulse 75, respiratory rate of 20, O2 saturation of 92% with blood pressure 132/77. HEENT: Unremarkable. Moist oral mucosa. NECK: Supple. No conjunctival injection or icterus. CARDIOVASCULAR: First and second heart sounds were heard. RESPIRATORY SYSTEM: Clear to auscultation. DIGESTIVE SYSTEM: Revealed a benign abdomen. Positive bowel sounds. EXTREMITIES: No peripheral edema. SKIN: No new gross rash. LYMPHATICS: No peripheral lymphadenopathy. LABORATORY INVESTIGATION: Pretty much unremarkable based on previous labs. Chemistries today showed a potassium of 6.0, creatinine 3.37, BUN of 59, sodium of 133. IMPRESSION: 1. End-stage renal disease, hemodialysis dependent. 2. Hyperkalemia in the context of end-stage renal disease. 3. Respiratory failure, status post intubation. PLAN: 1. The patient to receive Kayexalate today. 2. A repeat of chemistry later today if the potassium still remains high. The patient to be dialyzed, otherwise. If the potassium is improved, the patient can wait till tomorrow to get dialysis by his outpatient dialysis schedule. 3. The patient to be on a low-potassium diet. 4. Further management to be dependent on the clinical course. Job ID: [id number]
[2019-09-16 13:17] LABS: Anion Gap 18 mmol/L (10-20); BUN (Urea Nitrogen) 63 mg/dL (8.4-25.7); Calc. Creatinine Clearance 22 mL/min (70-130); Calcium 9.2 mg/dL (7.8-10.44); Carbon Dioxide 25 mmol/L (23-31); Chloride 96 mmol/L (98-107); Estimated GFR-MDRD 21; Glucose 99 mg/dL (80-115); Potassium 6.4 mmol/L (3.5-5.1); Sodium 133 mmol/L (136-145)
[2019-09-16] MEDS: Lidocaine 5% Patch TD SCH (13:37)
--- NOTE | 2019-09-16 16:04 | PRG ---
DATE OF SERVICE: 09/16/2019 SUBJECTIVE: Mr. Villeda has no complaints. OBJECTIVE: VITAL SIGNS: He is afebrile. Heart rate is in 80s, respiratory rates in the teens to low 20s, oximetry is 94% on cannula. LUNGS: Clear. HEART: Regular rhythm. ABDOMEN: Soft. ASSESSMENT: Overall, he appears to be stable. Job ID: [id number]
--- NOTE | 2019-09-16 18:35 | PDOC.CPN ---
- Subjective Date: 09/16/19 Time: 18:32 Interval history: Doing well. No angina, no SOB. - Review of Systems General: denies: fever/chills, weight/appetite/sleep changes, night sweats, fatigue Respiratory: denies: cough, congestion, shortness of breath, exercise intolerance Cardiovascular: denies: chest pain, palpitation, edema, paroxysmal nocturnal dyspnea, orthopnea Gastrointestinal: denies: nausea, vomiting, diarrhea, constipation, abd pain, GI bleeding Musculoskeletal: denies: pain, tenderness, stiffness, swelling, arthritis/ arthralgias Neurological: denies: numbness, syncope, seizure, weakness - Objective Allergies/Adverse Reactions: Allergies Allergy/AdvReac Type Severity Reaction Status Date / Time clindamycin Allergy Intermediate CAUSED Verified 09/10/19 15:51 HYPERKALEMIA paroxetine HCl [From Paxil] Allergy Intermediate PT STATES Verified 09/10/19 15: 51 IT MADE HIM VERY CRAZY IN HEAD cephalexin Allergy Verified 09/10/19 15:51 ciprofloxacin Allergy Verified 09/10/19 15:51 dalteparin,porcine Allergy Verified 09/10/19 15:51 [From Fragmin] Visit Medications: Current Medications Acetaminophen (Tylenol) 650 mg PO Q4H PRN PRN Reason: Headache/Fever/Mild Pain (1-3) Acetaminophen (Tylenol) 650 mg ND Q4H PRN PRN Reason: Headache/Fever/Mild Pain (1-3) Acetaminophen/Codeine Phosphate (Tylenol #3) 1 tab PO Q6H PRN PRN Reason: Mild-Moderate Pain (1-5) Acetaminophen/Codeine Phosphate (Tylenol #3) 2 tab PO Q6H PRN PRN Reason: Moderate to Severe Pain (6-10) Last Admin: 09/15/19 18:21 Dose: 2 tab Hydrocodone Bitart/Acetaminophen ([place] 5/325) 1 tab PO Q4H PRN PRN Reason: Moderate Pain (4-6) Last Admin: 09/12/19 08:33 Dose: 1 tab Hydrocodone Bitart/Acetaminophen ([place] 5/325) 2 tab PO Q4H PRN PRN Reason: Severe Pain (7-10) Last Admin: 09/16/19 15:31 Dose: 2 tab Albuterol/Ipratropium (Duoneb) 3 ml NEB TID-RT [facility] Last Admin: 09/16/19 14:46 Dose: 3 ml Albuterol/Ipratropium (Duoneb) 3 ml NEB Q6H PRN PRN Reason: SOB Artificial Tears (Tears Naturale) 2 drop EA EYE PRN PRN PRN Reason: Dry Eyes Ascorbic Acid (Vitamin C) 500 mg PO DAILY [facility] Last Admin: 09/16/19 09:06 Dose: 500 mg Aspirin (Ecotrin) 325 mg PO DAILY [facility] Last Admin: 09/16/19 09:13 Dose: 325 mg Calcium Carbonate (Caltrate) 600 mg PO DAILY [facility] Last Admin: 09/16/19 09:06 Dose: 600 mg Carvedilol (Coreg) 6.25 mg PO BID [facility] Last Admin: 09/16/19 09:07 Dose: 6.25 mg Clonidine (Catapres) 0.1 mg PO Q4H PRN PRN Reason: SBP > 160 use second Last Admin: 09/14/19 15:40 Dose: 0.1 mg Cyanocobalamin (Vitamin B-12) 1,000 mcg PO DAILY [facility] Last Admin: 09/16/19 09:06 Dose: 1,000 mcg Dextrose/Water (Dextrose 50%) 25 gm SLOW IVP PRN PRN PRN Reason: Hypoglycemia Last Admin: 09/11/19 05:44 Dose: 25 gm Diphenhydramine HCl (Benadryl) 50 mg IVP WILLCALL [facility] Last Admin: 09/13/19 12:33 Dose: 50 mg Enoxaparin Sodium (Lovenox) 70 mg SC DAILY [facility] Last Admin: 09/16/19 09:09 Dose: 70 mg Etravirine (Intelence) 200 mg PO BID-PC [facility] Last Admin: 09/16/19 18:07 Dose: 200 mg Fluticasone Propionate (Flonase Nasal [place]) 2 gm NASAL DAILY [facility] Last Admin: 09/16/19 09:10 Dose: 2 spr Folic Acid (Folvite) 1 mg PO DAILY [facility] Last Admin: 09/16/19 09:05 Dose: 1 mg Gabapentin (Neurontin) 300 mg PO HS [facility] Last Admin: 09/15/19 21:25 Dose: 300 mg Glucagon (Glucagon) 1 mg IM PRN PRN PRN Reason: Hypoglycemia Guaifenesin/Dextromethorphan (Robitussin Dm) 15 ml PO Q4H PRN PRN Reason: Cough Hydralazine HCl (Apresoline) 25 mg PO BID [facility] Last Admin: 09/16/19 09:07 Dose: 25 mg Hydrocortisone Sodium Succinate (Solu-Cortef) 50 mg IVP 0400,1000,1600,2200 [facility] Stop: 09/17/19 10:01 Last Admin: 09/16/19 15:31 Dose: 50 mg Dextrose/Water (D5w) 1,000 mls @ 0 mls/hr IV .Q0M PRN PRN Reason: Hypoglycemia Lidocaine (Lidoderm 5% Patch) 1 patch TD Q24H [facility] Last Admin: 09/16/19 13:37 Dose: 1 patch Melatonin (Melatonin) 9 mg PO HS [facility] Last Admin: 09/15/19 21:24 Dose: 9 mg Miscellaneous Medication (Lidocaine Patch Removal) 1 each TOP 2330 [facility] Last Admin: 09/16/19 01:28 Dose: 1 each Morphine Sulfate (Morphine) 4 mg SLOW IVP Q4H PRN PRN Reason: Congestion Last Admin: 09/11/19 01:00 Dose: 4 mg Hold Vancomycin For (Level >20) 0 each FS .AT DIALYSIS [facility] Nortriptyline HCl (Pamelor) 25 mg PO HS [facility] Last Admin: 09/15/19 21:24 Dose: 25 mg Ondansetron HCl (Zofran Odt) 4 mg PO Q6H PRN PRN Reason: Nausea/Vomiting Ondansetron HCl (Zofran) 4 mg IVP Q6H PRN PRN Reason: Nausea/Vomiting Last Admin: 09/16/19 06:19 Dose: 4 mg Pantoprazole Sodium (Protonix) 40 mg PO DAILY [facility] Last Admin: 09/16/19 09:06 Dose: 40 mg Polyethylene Glycol (Miralax) 17 gm PO BID [facility] Last Admin: 09/16/19 09:08 Dose: 17 gm Pravastatin Sodium (Pravachol) 20 mg PO QPM [facility] Last Admin: 09/15/19 21:25 Dose: 20 mg Raltegravir (Isentress) 400 mg PO BID [facility] Last Admin: 09/16/19 09:08 Dose: 400 mg Senna/Docusate Sodium (Senokot S) 2 tab PO BID PRN PRN Reason: Constipation Sevelamer Carbonate (Renvela) 800 mg PO TID-[facility] Last Admin: 09/16/19 18:07 Dose: 800 mg Vitamin B Complex/Vit C/Folic Acid (Nephro-Fran Tablet) 1 tab PO DAILY [facility] Last Admin: 09/16/19 09:06 Dose: 1 tab Zidovudine (Retrovir) 100 mg PO Q8HR [facility] Last Admin: 09/16/19 15:31 Dose: 100 mg Vital Signs & Weight: Vital Signs Temp Pulse Resp BP BP Pulse Ox 09/16/19 16:00 97.8 F 88 24 H 174/94 H 94 L 09/16/19 14:46 86 16 09/16/19 12:00 97.8 F 86 24 H 139/90 94 L 09/16/19 10:20 83 16 09/16/19 09:07 83 169/93 H 09/16/19 08:00 98.5 F 83 20 169/93 H 92 L Weight 169 lb 1.513 oz - Physical Exam General: alert & oriented x3 HEENT: mucus membranes moist Neck: supple neck Cardiac: regular rate and rhythm, systolic murmur Lungs: clear to auscultation Neuro: no lateralizing findings Abdomen: active bowel sounds Extremities: no edema Skin: clear Musculoskeletal: no pain - Labs Result Diagrams: 09/14/19 04:14 09/16/19 12:48 Troponin/CKMB CK-MB (CK-2) 3.2 ng/mL (0-6.6) 09/13/19 02:20 Troponin I 0.670 ng/mL (< 0.028) H* 09/13/19 13:57 - Telemetry Sinus rhythms and dysrhythmias: sinus rhythm - Assessment/Plan Assessment/Plan: 1. Type 2 demand ischemia 2. AMS, resolved. 3. ESRD on HD PLAN: - Tiny D1, 1 mm vessell has ostial disease. This is not amenable to revascularization by any means and unlikely to be causing any EKG changes or even the troponin elevation. - Continue medical therapy. - Will sign off. Please call with any questions.
[2019-09-16] MEDS: Melatonin 3 MG TAB PO SCH (20:56)
[2019-09-16] MEDS: Pravastatin Sodium 40 MG TAB PO SCH (20:56)
[2019-09-16] MEDS: Gabapentin 300 MG CAP PO SCH (20:58)
[2019-09-16] MEDS: Nortriptyline HCl 25 MG CAP PO SCH (21:35)
--- NOTE | 2019-09-16 22:52 | PDOC.HOSPP ---
- Subjective Encounter Date: 09/16/19 Encounter Time: 11:00 Subjective: no overnight events. Doing well, breathing and saturating well on 3.5L NC ( baseline 3L NC). - Objective Vital Signs & Weight: Vital Signs (12 hours) Temp Pulse Resp BP BP Pulse Ox 09/16/19 20:57 182/104 H 09/16/19 20:56 85 182/104 H 09/16/19 20:13 85 14 93 L 09/16/19 16:00 97.8 F 88 24 H 174/94 H 94 L 09/16/19 14:46 86 16 09/16/19 12:00 97.8 F 86 24 H 139/90 94 L Weight Weight 169 lb 1.513 oz Most Recent Monitor Data Heart Rate from ECG 80 NIBP 127/78 NIBP BP-Mean 94 Respiration from ECG 21 SpO2 96 I&O: 09/15/19 09/16/19 09/17/19 06:59 06:59 06:59 Intake Total 955 1670 982 Output Total 3500 0 2000 Balance -2545 1670 -1018 Result Diagrams: 09/14/19 04:14 09/16/19 12:48 Additional Labs: Accuchecks 09/16/19 09/16/19 09/16/19 20:31 17:05 10:42 POC Glucose 143 H 97 107 09/16/19 05:30 POC Glucose 109 Hospitalist ROS - Review of Systems Constitutional: denies: fever, chills, sweats, weakness, malaise, other Respiratory: denies: cough, dry, shortness of breath, hemoptysis, SOB with excertion, pleuritic pain, sputum, wheezing, other Cardiovascular: denies: chest pain, palpitations, orthopnea, paroxysmal noc. dyspnea, edema, light headedness, other Gastrointestinal: denies: nausea, vomiting, abdominal pain, diarrhea, constipation, melena, hematochezia, other Neurological: denies: weakness, numbness - Medication Medications: Active Medications Generic Name Dose Route Start Last Admin Trade Name Freq PRN Reason Stop Dose Admin Acetaminophen/Codeine Phosphate 2 tab 09/11/19 11:28 09/15/19 18:21 Tylenol #3 PO 2 tab Q6H PRN Administration Moderate to Severe Pain (6-10) Hydrocodone Bitart/Acetaminophen 1 tab 09/10/19 13:54 09/12/19 08:33 [place] 5/325 PO 1 tab Q4H PRN Administration Moderate Pain (4-6) Hydrocodone Bitart/Acetaminophen 2 tab 09/10/19 13:54 09/16/19 20:57 [place] 5/325 PO 2 tab Q4H PRN Administration Severe Pain (7-10) Albuterol/Ipratropium 3 ml 09/14/19 12:30 09/16/19 20:13 Duoneb NEB 3 ml TID-RT [facility] Administration Ascorbic Acid 500 mg 09/12/19 09:00 09/16/19 09:06 Vitamin C PO 500 mg DAILY [facility] Administration Aspirin 325 mg 09/13/19 08:34 09/16/19 09:13 Ecotrin PO 325 mg DAILY [facility] Administration Calcium Carbonate 600 mg 09/16/19 09:00 09/16/19 09:06 Caltrate PO 600 mg DAILY [facility] Administration Carvedilol 6.25 mg 09/14/19 21:00 09/16/19 20:57 Coreg PO 6.25 mg BID [facility] Administration Clonidine 0.1 mg 09/11/19 11:28 09/14/19 15:40 Catapres PO 0.1 mg Q4H PRN Administration SBP > 160 use second Cyanocobalamin 1,000 mcg 09/15/19 09:00 09/16/19 09:06 Vitamin B-12 PO 1,000 mcg DAILY [facility] Administration Dextrose/Water 25 gm 09/10/19 23:03 09/11/19 05:44 Dextrose 50% SLOW IVP 25 gm PRN PRN Administration Hypoglycemia Diphenhydramine HCl 50 mg 09/13/19 12:30 09/13/19 12:33 Benadryl IVP 50 mg WILLCALL [facility] Administration Enoxaparin Sodium 70 mg 09/13/19 09:00 09/16/19 09:09 Lovenox SC 70 mg DAILY [facility] Administration Etravirine 200 mg 09/11/19 18:00 09/16/19 18:07 Intelence PO 200 mg BID-PC [facility] Administration Fluticasone Propionate 2 gm 09/12/19 09:00 09/16/19 09:10 Flonase Nasal [place] NASAL 2 spr DAILY [facility] Administration Folic Acid 1 mg 09/12/19 09:00 09/16/19 09:05 Folvite PO 1 mg DAILY [facility] Administration Gabapentin 300 mg 09/11/19 21:00 09/16/19 20:58 Neurontin PO 300 mg HS [facility] Administration Hydralazine HCl 25 mg 09/14/19 21:00 09/16/19 20:56 Apresoline PO 25 mg BID [facility] Administration Hydrocortisone Sodium Succinate 50 mg 09/10/19 16:00 09/16/19 21:08 Solu-Cortef IVP 09/17/19 10:01 50 mg 0400,1000,1600,2200 [facility] Administration Lidocaine 1 patch 09/11/19 11:30 09/16/19 13:37 Lidoderm 5% Patch TD 1 patch Q24H [facility] Administration Melatonin 9 mg 09/11/19 21:00 09/16/19 20:56 Melatonin PO 9 mg HS [facility] Administration Miscellaneous Medication 1 each 09/11/19 23:30 09/16/19 01:28 Lidocaine Patch Removal TOP 1 each 2330 [facility] Administration Morphine Sulfate 4 mg 09/10/19 15:35 09/11/19 01:00 Morphine SLOW IVP 4 mg Q4H PRN Administration Congestion Nortriptyline HCl 25 mg 09/11/19 21:00 09/16/19 21:35 Pamelor PO 25 mg HS [facility] Administration Ondansetron HCl 4 mg 09/10/19 13:54 09/16/19 06:19 Zofran IVP 4 mg Q6H PRN Administration Nausea/Vomiting Pantoprazole Sodium 40 mg 09/12/19 09:00 09/16/19 09:06 Protonix PO 40 mg DAILY [facility] Administration Polyethylene Glycol 17 gm 09/13/19 21:00 09/16/19 20:59 Miralax PO 17 gm BID [facility] Administration Pravastatin Sodium 20 mg 09/11/19 21:00 09/16/19 20:56 Pravachol PO 20 mg QPM [facility] Administration Raltegravir 400 mg 09/11/19 21:00 09/16/19 20:58 Isentress PO 400 mg BID [facility] Administration Sevelamer Carbonate 800 mg 09/11/19 12:00 09/16/19 18:07 Renvela PO 800 mg TID-WM [facility] Administration Vitamin B Complex/Vit C/Folic Acid 1 tab 09/12/19 09:00 09/16/19 09:06 Nephro-Fran Tablet PO 1 tab DAILY [facility] Administration Zidovudine 100 mg 09/11/19 14:00 09/16/19 21:08 Retrovir PO 100 mg Q8HR [facility] Administration - Exam Heart: RRR, no gallops, no rubs Heart - other findings: left 5th parasternal decrescendo systolic murmur Respiratory: CTAB, no wheezes, no ronchi, normal chest expansion, no tachypnea Respiratory - other findings: mild inpsiratory rales in lower [place] Gastrointestinal: soft, non-tender, non-distended, normal bowel sounds, no palpable masses, no hepatomegaly, no splenomegaly, no bruit Psychiatric: normal affect, normal behavior, A&O x 3 Hosp A/P - Plan 1. Acute respiratory failure, status post mechanical ventilation (resolved) 2.NSTEMI - per cardiology, insignificant vessel occlusion not amenable to intervention 3. Hyperkalemia, - will undergo dialysis (09/16) 4. End-stage renal disease, on dialysis per Dr. Rangel. 5. Human immunodeficiency virus, on HAART regimen. 6. Chronic anemia secondary to renal disease. The patient will continue current regimen and I am not planning to give him more opioids. He is getting from 1 to 2 tablets every 4 hours p.r.n. as needed hydrocodone for his decubitus. Will DC on 09/17.
[2019-09-17] MEDS: cloNIDine 0.1 MG TAB PO PRN ×2 (00:23→04:03)
[2019-09-17] MEDS: Lidocaine Patch Removal 1 EACH TOP SCH (01:23)
[2019-09-17] MEDS: Hydrocortisone Sod Succ/PF 100 mg/2 ml Vial IVP SCH ×2 (05:46→11:10)
[2019-09-17] MEDS ORDERED: Carvedilol 6.25 MG TAB PO SCH (08:00)
[2019-09-17] MEDS: Sevelamer Carbonate 800 MG TAB PO SCH ×2 (08:10→15:40)
[2019-09-17] MEDS: Raltegravir Potassium 400 MG TAB PO SCH (08:10)
[2019-09-17] MEDS: Aspirin 325 mg Enteric Coated Tablet PO SCH (08:10)
[2019-09-17] MEDS: hydrALAZINE 25 MG TAB PO SCH (08:12)
[2019-09-17] MEDS: Ascorbic Acid 500 mg Chewable Tablet PO SCH (08:12)
[2019-09-17] MEDS: Cyanocobalamin (Vitamin B-12) 1,000 MCG TAB PO SCH (08:12)
[2019-09-17] MEDS: Polyethylene Glycol 3350 17 GM Packet PO SCH (08:13)
[2019-09-17] MEDS: Fluticasone Propionate Nasal Spray 16 gm Bottle NASAL SCH (08:13)
[2019-09-17] MEDS: Calcium Carbonate 600 MG TAB PO SCH (08:13)
[2019-09-17] MEDS: Folic Acid 1 MG TAB PO SCH (08:13)
[2019-09-17] MEDS: Folic Acid/Vit B Comp W-C PO SCH (08:13)
[2019-09-17] MEDS: Enoxaparin Sodium 80 MG/0.8 ML SYRINGE SC SCH (08:26)
--- NOTE | 2019-09-17 12:10 | PRG ---
DATE OF SERVICE: 09/17/2019 SUBJECTIVE: The patient is seen and examined. Noted with the following vital signs. OBJECTIVE: VITAL SIGNS: Afebrile, temperature 98, pulse 73, respiratory rate of 20, O2 saturations of 98%, and blood pressure 158/88. HEENT: Unremarkable. CARDIOVASCULAR SYSTEM: First and second heart sounds were heard. RESPIRATORY SYSTEM: Clear to auscultation. DIGESTIVE SYSTEM: Revealed a benign abdomen with positive bowel sounds. EXTREMITIES: No peripheral edema. SKIN: No new gross rash. LYMPHATICS: No peripheral lymphadenopathy. IMPRESSION: 1. End-stage renal disease, on hemodialysis. 2. Sepsis in the context of pulmonary infection. 3. Hyperkalemia, most likely resolved. PLAN: 1. The patient to be dialyzed today in accordance with his regular schedule Monday, , and Monday. 2. The patient possibly to be discharged today status post dialysis with ultrafiltration as tolerated by hemodynamics. 3. Further management to be dependent on the clinical course. Job ID: [id number]
[2019-09-17] MEDS: Lidocaine 5% Patch TD SCH (15:40)
[2019-09-17 16:11] VITALS: BP 122/75; TEMP 97.6
--- NOTE | 2019-09-19 05:58 | PQF ---
TWILAWINSTON PENA SHEA GRAVES [id number] CLINICAL DOCUMENTATION CLARIFICATION FORM: POST DISCHARGE Addendum to original discharge summary date: ____ Late entry note date: __ DATE: 09/19/2019 ATTN: Shea Lee Please exercise your independent, professional judgment in responding to the clarification form. Clinical indicators are provided on the bottom of this form for your review Please check appropriate box(s): [x ] AIDS /HIV Disease [ ] Asymptomatic HIV infection status [ ] Non-specific serologic evidence of HIV [ ] Other diagnosis [ ] Unable to determine For continuity of documentation, please document condition throughout progress notes and discharge summary. Thank You. CLINICAL INDICATORS - SIGNS / SYMPTOMS / LABS Laboratory Hematology WBC: 09/10=5.5 09/11=3.6 09/13=3.3 09/14=3.4 H&P p5 09/10 Dr Gilbert Human immunodeficiency virus. We will need to resume his HAART therapy once he can take p.o H&P p2 09/10 Dr Gilbert HIV infection H&P p4 09/10 Dr Gilbert GENITOURINARY:He does have some mild scaling of some of the skin in the groin area H&P p1 09/10 Dr Gilbert repeated admission to the hospital both for volume overload and for bacteremia H&P p1 09/10 Dr Gilbert He was apparently hypotensive, tachycardic and hypoxic when they arrived. 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 H&P p1 09/10 64-year-old H&P p1 09/10 History of HIV infectin on HAART H&P p1 09/10 ESRD H&P p2 09/10 DM H&P p2 09/10 History of esophageal cancer H&P p4 09/10 Septic Shock H&P p5 09/10 Acute hypoxic Respiratory failure Consult p1 09/10 History of hepatitis C TREATMENTS: OCT 12 IV Zithromax 500mg OCT 12 IV Levophed 250 mls OCT 12- IV Vancomycin 100 mls OCT 12-IVF OCT 12 Intelence 200 mg PO BID OCT 12 Isentress 400mg PO BID OCT 12 Retrovir 100mg PO Respiratory panel 09/10 On Mechanical Ventilator (This form is maintained as a part of the permanent medical record) 2014 [employer]. All Rights Reserved [email or web address]
--- NOTE | 2019-09-19 11:26 | DIS ---
DATE OF ADMISSION: 09/10/2019 DATE OF DISCHARGE: 09/17/2019 HISTORY OF PRESENT ILLNESS: Mr. Villeda is a 64-year-old male with a medical history of HIV, end-stage renal disease on hemodialysis, hypertension, and peripheral vascular disease, who presented to the ED with shortness of breath, coughing, and wheezing. He went to dialysis and presented with shortness of breath. He was found to have a low blood pressure, so he was sent to the ED. In the ED, he was found to again have very low blood pressure. He was hypervolemic and hyperkalemic, and during his ED stay, he became altered and required eventual admission to the ICU and intubation. He was started on treatment for sepsis; however, after infectious workup, he was found to have no infection. Initially improved, but during his stay in the ICU, he again developed acute hypoxic respiratory failure, and troponin was elevated. He underwent left heart catheterization which showed only minimal occlusion, and per Cardiology required no surgical intervention. He was again started on antibiotics for suspected aspiration pneumonia, and continued monitoring in the ICU and floor. Again, infectious workup was negative, and the patient continued to improve with dialysis. On the day of discharge, he was hemodynamically stable and at baseline mentation. Vitals were unremarkable. PHYSICAL EXAMINATION: GENERAL: He was alert and oriented x3. HEART: Showed regular rate and rhythm. No gallops and no rubs, but he did have a left 5th upper sternal decrescendo systolic murmur. RESPIRATORY: Clear to auscultation bilaterally. No wheezing. No rhonchi. Normal chest expansion. No tachypnea. However, he did have mild expiratory rales in lower arriaga. GASTROINTESTINAL: Soft, nontender, nondistended. Normal bowel sounds. EXTREMITY: Amputation of the left lower extremity above the knee, poor peripheral pulses. PSYCHIATRIC: Proper mood and affect. Alert and oriented x3. ASSESSMENT AND PLAN: Mr. Villeda is a 64-year-old male with a medical history of HIV on highly active antiretroviral therapy; end-stage renal disease, on hemodialysis and recurrent hospitalizations due to bacteremia, hyperkalemia, and fluid overload, who presented with hypoxic respiratory failure due to fluid overload and hyperkalemia. The patient had a prolonged course including an ICU stay that required pressor support and intubation. During the stay, infectious workup showed no infectious etiology that could explain his presentation, and left heart catheterization showed only minimal occlusion, so the most likely etiology for his acute respiratory failure and demand ischemia was fluid overload. He improved after multiple sessions of dialysis, and was discharged back to his [facility] hemodynamically stable and at baseline mental state, with followup appointment with his primary care physician, after discharge the patient decided to commence hospice care, but wished to remain full code. Job ID: [id number]
== END 2019-09-17 17:30 | DRG 974 ==
LOC: ERS 08:27 → CCU 11:38 → 2NO 09-14
PROVIDERS: ADMIT Emergency Medicine; ATTEND Emergency Medicine
PROC: 3E043XZ Introduction of Vasopressor into Central Vein, Percutaneous Approach (ICD-10-PCS; principal; 2019-09-10)
PROC: 5A1D70Z Performance of Urinary Filtration, Intermittent, Less than 6 Hours Per Day (ICD-10-PCS; 2019-09-10)
PROC: 5A1935Z Respiratory Ventilation, Less than 24 Consecutive Hours (ICD-10-PCS; 2019-09-10)
PROC: 06HY33Z Insertion of Infusion Device into Lower Vein, Percutaneous Approach (ICD-10-PCS; 2019-09-10)
PROC: 0BH17EZ Insertion of Endotracheal Airway into Trachea, Via Natural or Artificial Opening (ICD-10-PCS; 2019-09-10)
PROC: 5A09357 Assistance with Respiratory Ventilation, Less than 24 Consecutive Hours, Continuous Positive Airway Pressure (ICD-10-PCS; 2019-09-12)
PROC: 4A023N7 Measurement of Cardiac Sampling and Pressure, Left Heart, Percutaneous Approach (ICD-10-PCS; 2019-09-13)
PROC: B2151ZZ Fluoroscopy of Left Heart using Low Osmolar Contrast (ICD-10-PCS; 2019-09-13)
PROC: B2111ZZ Fluoroscopy of Multiple Coronary Arteries using Low Osmolar Contrast (ICD-10-PCS; 2019-09-13)
DX: A41.9 Sepsis, unspecified organism (principal); J96.21 Acute and chronic respiratory failure with hypoxia; B20 Human immunodeficiency virus [HIV] disease; R65.21 Severe sepsis with septic shock; N18.6 End stage renal disease; G93.41 Metabolic encephalopathy; I21.A1 Myocardial infarction type 2; J96.22 Acute and chronic respiratory failure with hypercapnia; E87.2 Acidosis; I12.0 Hypertensive chronic kidney disease with stage 5 chronic kidney disease or end stage renal disease; Z88.8 Allergy status to other drugs, medicaments and biological substances; E87.5 Hyperkalemia; E11.22 Type 2 diabetes mellitus with diabetic chronic kidney disease; E11.649 Type 2 diabetes mellitus with hypoglycemia without coma; D63.1 Anemia in chronic kidney disease; G47.33 Obstructive sleep apnea (adult) (pediatric); Z96.652 Presence of left artificial knee joint; E78.5 Hyperlipidemia, unspecified; J44.9 Chronic obstructive pulmonary disease, unspecified; Z99.2 Dependence on renal dialysis; Z85.01 Personal history of malignant neoplasm of esophagus; Z89.612 Acquired absence of left leg above knee; Z79.899 Other long term (current) drug therapy; Z79.82 Long term (current) use of aspirin; Z79.51 Long term (current) use of inhaled steroids; Z88.1 Allergy status to other antibiotic agents
CPT/HCPCS: 31500; 36415; 36416; 36556; 51702; 70450; 71045; 80048; 80053; 80202; 82553; 82805; 83605; 84484; 85025; 85610; 85730; 87040; 87804; 90935; 90945; 93005; 93010; 94002; 94003; 94640; 94644; 94660; 94760; 96365; 96366; 96367; 96368; 96375; 96376; C1769; G0257; J0171; J0456; J1200; J1644; J1650; J1720; J1815; J2001; J2270; J2405; J2543; J3010; J3370; J3490; J7512; J7611; J7620; P9047

== ENCOUNTER 2019-09-19 05:49 | Inpatient (IN) | payer OTHER, SELFPAY ==
[2019-09-19 06:20] LABS: #Lymphocytes 1.2 thou/uL (1.20-3.40); #Monocytes 1.1 thou/uL (0.11-0.59); #Neutrophils 6.5 thou/uL (1.40-6.50); %Eosinophils 0.4 % (0.0-10.0); %Lymphocytes 13.7 % (21.0-51.0); %Neutrophils 73.8 % (42.0-75.0); Mean Corpuscular HGB CONC 30.7 g/dL (32.0-36.0); Mean Corpuscular Hemoglobin 33.6 pg (27.0-31.0); Mean Platelet Volume 8.8 fL (7.4-10.4); Platelet Count 250 thou/uL (130-400); RBC Distribution Width 21.2 % (11.5-14.5); Red Blood Cell (RBC) Count 4.17 mill/uL (4.70-6.10); White Blood Cell (WBC) Count 8.8 thou/uL (4.8-10.8)
[2019-09-19] MEDS ORDERED: Piperacillin/Tazobactam 4.5 GM VIAL ONE (06:32)
[2019-09-19 06:34] LABS: ALT (SGPT) 16 U/L (8-55); AST (SGOT) 22 U/L (5-34); Albumin 3.6 g/dL (3.4-4.8); Alkaline Phosphatase 103 U/L (40-110); Anion Gap 24 mmol/L (10-20); BUN (Urea Nitrogen) 65 mg/dL (8.4-25.7); Bilirubin, Total 0.8 mg/dL (0.2-1.2); Calc. Creatinine Clearance 0 mL/min (70-130); Calcium 9.2 mg/dL (7.8-10.44); Carbon Dioxide 20 mmol/L (23-31); Chloride 97 mmol/L (98-107); Estimated GFR-MDRD 23; Globulin 3.2 g/dL (2.4-3.5); Glucose 102 mg/dL (80-115); Protein, Total 6.8 g/dL (5.8-8.1); Sodium 134 mmol/L (136-145)
[2019-09-19 06:38] LABS: Actual Bicarbonate (HCO3a) 24.9 mEq/L (22-28); Analyzer IN Cardio ER; Base Excess (BEa) -2.8 mEq/L (-2.0 to +3.0); CO2 Tension 55.3 mmHg (35.0-45.0); Calcium, Ionized 1.11 mmol/L (1.12-1.30); Carboxyhemoglobin (COHb) 1.6 gm% (0.0-3.0); Hemoglobin (Hb) 13.6 g/dL (14.0-18.0); O2 Tension (PaO2) 74.8 mmHg (> 80.0); Potassium - ABG Lab 6.07 mmol/L (3.70-5.30); Puncture Site RBA; pH, Arterial 7.27 (7.35-7.45)
[2019-09-19 06:39] LABS: ALV-art Gradient 355.175 (0-20)
[2019-09-19] MEDS ORDERED: Acetaminophen 650 MG Suppository ONE (06:39)
[2019-09-19 06:43] LABS: Critical Call Chem Troponin I RESULT DECREASING
[2019-09-19 06:45] LABS: Potassium 6.7 mmol/L (3.5-5.1)
[2019-09-19] MEDS ORDERED: Dextrose 50% Abboject 50 ML SYRINGE ONE (06:54)
[2019-09-19] MEDS ORDERED: Calcium Chloride 1 GM/10 ML Abboject SYRINGE ONE (06:54)
[2019-09-19] MEDS ORDERED: Insulin Regular 300 UNITS/3 ML VIAL ONE (06:54)
[2019-09-19] MEDS ORDERED: Sodium Bicarb 50 MEQ/50 ML VIAL ONE (06:54)
[2019-09-19 07:01] LABS: CKMB 4.1 ng/mL (0-6.6)
--- NOTE | 2019-09-19 07:38 | RAD ---
XR Chest 1 View Portable HISTORY: Dyspnea COMPARISON: 09/11/2019 FINDINGS: The heart is enlarged. There is mild pulmonary vascular congestion. No pneumothoraces or la rge effusions are seen. There is infiltrate versus atelectatic change at the left lung base.
[2019-09-19 11:11] VITALS: BMI 23.3
[2019-09-19] MEDS ORDERED: EPOETIN ALFA-EPBX (ESRD) 10,000 UNIT/ML VIAL IVP PRN (11:47)
[2019-09-19] MEDS ORDERED: Artificial Tears 18 DROP/0.9 ML EA EYE PRN (11:47)
[2019-09-19] MEDS ORDERED: cloNIDine 0.1 MG TAB PO PRN (11:47)
[2019-09-19] MEDS ORDERED: VANCOMYCIN IVPB PRN (13:44)
[2019-09-19] MEDS ORDERED: HOLD VANCOMYCIN FOR LEVEL >20 FS SCH (13:45)
[2019-09-19] MEDS ORDERED: Vancomycin HCl 500 MG in Sodium Chloride 0.9% 100 ML IVPB SCH ×2 (13:45→14:00)
[2019-09-19] MEDS ORDERED: Vancomycin HCl 1 GM in Premix Bag 1 BAG IVPB SCH (13:45)
[2019-09-19] MEDS ORDERED: Vancomycin HCl 750 MG in Sodium Chloride 0.9% 250 ML 250 ML IVPB SCH (13:45)
[2019-09-19] MEDS ORDERED: Vancomycin HCl 1.25 GM in Sodium Chloride 0.9% 250 ML 250 ML IVPB SCH (13:45)
[2019-09-19] MEDS: Heparin 5,000 UNITS/ML VIAL SC SCH ×2 (13:47→16:52)
[2019-09-19] MEDS: Piperacillin/Tazobactam 2.25 GM in Sodium Chloride 0.9% 100 ML IVPB SCH ×2 (13:49→17:13)
[2019-09-19] MEDS: Sevelamer Carbonate 800 MG TAB PO SCH ×2 (13:50→17:11)
[2019-09-19] MEDS: Lidocaine 5% Patch TD SCH (13:56)
--- NOTE | 2019-09-19 14:54 | CON ---
DATE OF CONSULTATION: 09/19/2019 SERVICE: Pulmonary Medicine. REASON FOR CONSULTATION: ICU patient. HISTORY OF PRESENT ILLNESS: The patient is a 64-year-old male with past medical history significant for HIV and end-stage renal disease. He was in his usual state of health when he started having increasing work of breathing and intermittent fevers. When he came to the emergency department, he had 101 degrees temperature. He was given some DuoNeb en route to the emergency department. On arriving here, his blood pressures were marginal, and he was tachycardic, and tachypneic. He has put on BiPAP, and tucked into the ICU. He was recently in the hospital for an episode of respiratory failure. During the hospital stay, there was no evidence of significant infectious process identified. PAST MEDICAL HISTORY: 1. HIV. 2. End-stage renal disease. 3. Type 2 diabetes mellitus. 4. Esophageal cancer. 5. COPD. 6. Hypertension. 7. Obstructive sleep apnea. PAST SURGICAL HISTORY: 1. AV fistula in the left upper extremity. 2. Port-A-Cath placement. 3. Appendectomy. 4. Hemorrhoidectomy. 5. Amputation of left lower extremity. 6. Herniorrhaphy x3. 7. Tonsillectomy. 8. Left elbow surgery. FAMILY HISTORY: Noncontributory. SOCIAL HISTORY: He lives in a long-term care facility. He drinks rarely. Denies any current alcohol or illicit drug abuse, but previously abused cocaine and marijuana. He has remote [id number] history of smoking, but quit over 10 years ago. He has no exposure to chemicals, dust, asbestos, or tuberculosis. REVIEW OF SYSTEMS: The patient is currently touch encephalopathic/sleepy. He does wake up with gentle stimulation, but he is not able to participate in a review of systems. ALLERGIES: CLINDAMYCIN, PAROXETINE, CEPHALEXIN, CIPRO, AND DALTEPARIN. MEDICATIONS: List of his inpatient medications was reviewed. No specific updates were made at this time. PHYSICAL EXAMINATION: VITAL SIGNS: Afebrile currently. On presentation, however, he was 101.3. Pulse 88, blood pressure 121/78, respirations 21, saturation 94%, currently on 30% FiO2 delivered via BiPAP. HEENT: Normocephalic and atraumatic. Sclerae white. Conjunctivae pink. Oral mucosa is moist without lesions. LUNGS: Decent air entry. Rhonchi are present. No prolonged expiratory phase is appreciated. HEART: Normal rate. Regular. ABDOMEN: Soft, nontender, and nondistended. Bowel sounds are positive. MUSCULOSKELETAL: No cyanosis or clubbing. No pitting in the bilateral lower extremities. NEUROLOGIC: Grossly nonfocal. LABORATORY DATA: WBC 8.8, hemoglobin 14.0, and platelets 250,000. PH 7.27, pCO2 of 55, PO2 of 74, corresponding to saturation 92%. Potassium 6.7 and creatinine 3.37. Liver function studies are unremarkable. Troponin 0.44, which is lower than it was last hospital stay. Lactate 1.3. IMAGING STUDIES: Chest x-ray demonstrates pulmonary vascular congestion, infiltrate in the left base. Massive cardiomegaly is present. ASSESSMENT: 1. Acute on chronic hypoxic and hypercapnic respiratory failure. 2. Pulmonary hypertension. 3. Acute on chronic diastolic heart failure. 4. Severe sepsis. 5. Human immunodeficiency virus. 6. End-stage renal disease. DISCUSSION AND PLAN: We will give the patient an empiric antibiotics. We will watch his respiratory status closely. Once his mentation improves, we will start giving him BiPAP breaks 3 times daily and increase as tolerated. Panculture is currently pending. We will await the results of the ED studies that we pulled. The Zosyn and vancomycin should be more than adequate covering most healthcare associated pathogens. It is my understanding that he has been compliant with his medications for HIV. We will get a CD4 count to make certain, we do not have to think about organisms that affect at immunocompromised patients. Critical Care will continue to follow closely. 70 minutes have been devoted to this patient in various activities. I personally reviewed all imaging studies and laboratory data noted within this document. For fifty percent of this time, I was interacting with the patient at the bedside or coordinating care with the care team. For the remainder of the time I was immediately available to the patient in the hospital unit. Job ID: [id number] [facility]
[2019-09-19] MEDS ORDERED: Dextrose 50% Abboject 50 ML SYRINGE SLOW IVP PRN (16:30)
[2019-09-19] MEDS ORDERED: Dextrose 5% in Water 1,000 ML IV PRN (16:30)
[2019-09-19] MEDS ORDERED: Carvedilol 6.25 MG TAB PO SCH (17:00)
[2019-09-19] MEDS ORDERED: Dextrose 50 % In Water 50 ML SYRINGE ONE ×5 (17:07→22:25)
[2019-09-19] MEDS: Dextrose 10% in Water 1,000 ML IV SCH ×2 (17:30→22:09)
--- NOTE | 2019-09-19 18:18 | PDOC.HHP ---
Hospitalist HPI - History of Present Illness shortness of breath, fever History of Present Illness: 64-year-old male with a medical history of end-stage renal disease, on hemodialysis; HIV infection, on HAART therapy with repeated admissions to the hospital both for volume overload and for bacteremia who presents for shortness of breath and a fever. Patient recently discharged after a similar presentation. Per sister at bedside, she received a call from [facility] that the patient had dialysis yesterday and this morning developed a fever of 103F and progressively worsening shortness of breath, otherwise sister didn' t know if he had additional symptoms, so he was sent to the emergency room. ED Course: In the ED, was found to be somnolent, febrile, hypotensive, tachpnic, so started on ABx. Labs showed grossly elevated potassium, ABG c/w acute hypoxic hypercapnic respiratory failure. He was scheduled for emergent dialysis and was admitted to the CCU Hospitalist ROS - Review of Systems ROS unobtainable: due to mental status (somnolent and on Bipap) - Medication Medications: Active Medications Generic Name Dose Route Start Last Admin Trade Name Freq PRN Reason Stop Dose Admin Etravirine 200 mg 09/19/19 18:00 09/19/19 17:12 Intelence PO 200 mg BID-PC ESME Administration Heparin Sodium (Porcine) 5,000 units 09/19/19 09:00 09/19/19 16:52 Heparin SC 5,000 units TID ESME Administration Piperacillin Sod/Tazobactam 100 mls @ 200 mls/hr 09/19/19 12:00 09/19/19 17: 13 Sod 2.25 gm/ Sodium Chloride IVPB Not Given Q6HR ESME Lidocaine 1 patch 09/19/19 12:00 09/19/19 13:56 Lidoderm 5% Patch TD 1 patch Q24H ESME Administration Sevelamer Carbonate 800 mg 09/19/19 12:00 09/19/19 17:11 Renvela PO Not Given TID-WM ESME Zidovudine 100 mg 09/19/19 14:00 09/19/19 16:36 Retrovir PO Not Given Q8HR ESME Hospitalist History - Past Medical History Source: old records (1. End-stage renal disease, on hemodialysis. 2. HIV infection, on HAART therapy. 3. Diabetes mellitus, type 2, now diet controlled. 4. Anemia secondary to renal insufficiency. 5. Obstructive sleep apnea syndrome. 6. Chronic obstructive pulmonary disease. 7. Diverticulosis. 8. Hyperlipidemia. 9. Thyroid cyst. 10. History of esophageal cancer, treated with chemotherapy and radiation. 11. Hypertension. PAST SURGICAL HISTORY: 1. Hemorrhoidectomy. 2. Amputation of left lower extremity, [id number]. 3. Total left knee replacement previously. 4. Hernia repair x3. 5. Tonsillectomy. 6. Left elbow surgery. 7. Multiple left arm dialysis shunt placements. 8. Cardiac catheterization with normal coronary arteries in 2017. SOCIAL HISTORY: The patient reports he drinks sporadically. Former drug user. Has not used in long time. He is a former smoker, but does not actively currently smoke. FAMILY HISTORY: Significant for heart disease in his 2 younger brothers. ALLERGIES: 1. CIPROFLOXACIN. 2. CLINDAMYCIN. 3. IODINE. 4. PAROXETINE. 5. CEPHALEXIN. 6. DALTEPARIN. 7. PORCINE. MEDICATIONS: Current medications: The patient does not have his current medication list with him. However, he was discharged from the hospital for volume overload less than 2 weeks ago, and he has not had any medication changes since then. The list from that discharge is as follows: 1. Vitamin C daily. 2. Tylenol No. 3 with codeine as needed for pain. 3. Etravirine 200 mg twice a day. 4. Vitamin B12 of 1000 mcg daily. 5. Coreg 3.125 mg twice a day. 6. Calcium lactate 650 mg daily. 7. Aspirin 81 mg daily. 8. Gabapentin 300 mg at night. 9. Folic acid 1 mg daily. 10. Florinef 0.1 mg a day. 11. Spiriva 2.5 mcg inhaled daily. 12. Renvela 800 mg 3 times a day. 13. Isentress 400 mg twice a day. 14. Pravachol 20 mg a day. 15. Protonix 40 mg a day. 16. Pamelor 25 mg at bedtime. 17. Melatonin 10 mg at bedtime. 18. Hydralazine 25 mg twice a day. 19. Clonidine 0.1 mg q.4 hours as needed. 20. Zidovudine 100 mg 3 times a day.) - Exam General Appearance: ill appearing General - other findings: somnolent, on bipap Eye: PERRL, anicteric sclera Neck: supple, symmetric, no JVD Heart: diminshed peripheral pulses Heart - other findings: normal rhythm, tachycardic (mild), systolic murmur second right intercostal Respiratory: no wheezes, no rales, normal chest expansion. negative: wheezes Respiratory - other findings: reduced breath sounds throughtout, mild inspiratory rales in the bases Gastrointestinal: soft, non-tender, non-distended, normal bowel sounds Extremities - other findings: L above the knee amputation; cold extremities; mild R lower extremity edema Hospitalist Results - Labs Result Diagrams: 09/19/19 06:02 09/19/19 18:00 Lab results: WBC 8.8 thou/uL (4.8-10.8) 09/19/19 06:02 Hgb 14.0 g/dL (14.0-18.0) 09/19/19 06:02 Hct 45.7 % (42.0-52.0) 09/19/19 06:02 MCV 110.0 fL (78.0-98.0) H 09/19/19 06:02 Plt Count 250 thou/uL (130-400) 09/19/19 06:02 Neutrophils % 73.8 % (42.0-75.0) 09/19/19 06:02 ABG pH 7.27 (7.35-7.45) L 09/19/19 06:29 ABG pCO2 55.3 mmHg (35.0-45.0) H 09/19/19 06:29 ABG pO2 74.8 mmHg (> 80.0) 09/19/19 06:29 Sodium 134 mmol/L (136-145) L 09/19/19 06:02 Potassium 6.7 mmol/L (3.5-5.1) H* 09/19/19 06:02 Chloride 97 mmol/L (98-107) L 09/19/19 06:02 Carbon Dioxide 20 mmol/L (23-31) L 09/19/19 06:02 BUN 65 mg/dL (8.4-25.7) H 09/19/19 06:02 Creatinine 3.37 mg/dL (0.7-1.3) H 09/19/19 06:02 Glucose 102 mg/dL (80-115) 09/19/19 06:02 Lactic Acid 1.3 mmol/L (0.5-2.2) 09/19/19 06:02 Calcium 9.2 mg/dL (7.8-10.44) 09/19/19 06:02 Total Bilirubin 0.8 mg/dL (0.2-1.2) 09/19/19 06:02 AST 22 U/L (5-34) 09/19/19 06:02 ALT 16 U/L (8-55) 09/19/19 06:02 Alkaline Phosphatase 103 U/L (40-110) 09/19/19 06:02 CK-MB (CK-2) 4.1 ng/mL (0-6.6) 09/19/19 06:02 Troponin I 0.443 ng/mL (< 0.028) H* 09/19/19 06:02 Serum Total Protein 6.8 g/dL (5.8-8.1) 09/19/19 06:02 Albumin 3.6 g/dL (3.4-4.8) 09/19/19 06:02 - EKG Interpretation EKG: large T-waves in septo-lateral leads suggestive of hyperkalemia; no acute signs of ischemia - Radiology Interpretation Chest x-ray Status: image reviewed by wy Hospitalist H&P A/P - Problem (1) Sepsis associated with internal vascular access Code(s): T82.7XXA - INFECT/INFLM REACT D/T OTH CARDI/VASC DEV/IMPLNT/GRFT, INIT ; A41.9 - SEPSIS, UNSPECIFIED ORGANISM Status: Acute (2) Acute respiratory failure with hypoxia and hypercapnia Code(s): J96.01 - ACUTE RESPIRATORY FAILURE WITH HYPOXIA; J96.02 - ACUTE RESPIRATORY FAILURE WITH HYPERCAPNIA Status: Acute (3) Acute encephalopathy Code(s): G93.40 - ENCEPHALOPATHY, UNSPECIFIED Status: Acute (4) NSTEMI (non-ST elevated myocardial infarction) Code(s): I21.4 - NON-ST ELEVATION (NSTEMI) MYOCARDIAL INFARCTION Status: Resolved (5) Acute hyperkalemia Code(s): E87.5 - HYPERKALEMIA Status: Acute (6) HTN (hypertension) Code(s): I10 - ESSENTIAL (PRIMARY) HYPERTENSION Status: Chronic Qualifiers: Hypertension type: essential hypertension Qualified Code(s): I10 - Essential (primary) hypertension - Plan Plan: 1. qsofa 3/3; likely due to intravascular access for dialysis; started on vanc and zosyn pending infectious workup; currently HD stable 2. encephalopathy - infectious, hypoxic, metabolic most likely etiologies. Will manage by addressing underlying mechanisms 3. On Bipap; on arrival to MICU transitioned to nasal cannula; CXR showing insignificant congestion and no acute processes; 4. hemodialysism hyperkalemia - did dialysis as scheduled; likely exacerbated by acidosis; will undergo emergent dialysis 5. NSTEMI likely due to hypervolemia / sepsis resulting in increased demand; will trend trop and EKGs 6. HTN - holding long acting medications now due to acuity of condition; will start labetolol with holding parameters Dispo: Hospice patient that per sister who spoke with him yesterday, wants to remain full code. Code : full code DVT prophylaxis: heparin 5000u subq q12h
[2019-09-19 18:42] LABS: ALT (SGPT) 15 U/L (8-55); AST (SGOT) 33 U/L (5-34); Albumin 3.5 g/dL (3.4-4.8); Alkaline Phosphatase 91 U/L (40-110); Anion Gap 27 mmol/L (10-20); BUN (Urea Nitrogen) 39 mg/dL (8.4-25.7); Calc. Creatinine Clearance 33 mL/min (70-130); Calcium 9.1 mg/dL (7.8-10.44); Carbon Dioxide 22 mmol/L (23-31); Chloride 95 mmol/L (98-107); Estimated GFR-MDRD 33; Globulin 3.4 g/dL (2.4-3.5); Potassium 5.7 mmol/L (3.5-5.1); Protein, Total 6.9 g/dL (5.8-8.1); Sodium 138 mmol/L (136-145)
[2019-09-19 18:49] LABS: Troponin I 0.498 ng/mL (< 0.028)
[2019-09-19 18:51] LABS: Glucose 58 mg/dL (80-115)
[2019-09-19] MEDS ORDERED: hydrALAZINE 25 MG TAB PO SCH (21:00)
--- NOTE | 2019-09-19 21:45 | PDOC.EVN ---
Event Note - Event Note Event Note: Contacted by nurse at 9:35pm. Patient having resistant hypoglycemia likely due to sepsis and rectal temperature 104.1 despite antibiotics. Considering persistence of fever and higher risk for ESBL bacteria, which are not covered by current antibiotics, stopped zosyn and started meropenem 500mg IV q24h after dialysis. Also, potassium levels 5.7 after dialysis. Per nurse can't give oral kayexalata because on Bipap so gave per rectum.
[2019-09-19] MEDS ORDERED: Meropenem 500 MG in Sodium Chloride 0.9% 100 ML IVPB SCH (22:00)
[2019-09-19 23:42] LABS: Glucose 150 mg/dL (80-115)
[2019-09-19] MEDS: Melatonin 3 MG TAB PO SCH (23:43)
[2019-09-20 01:06] LABS: Glucose 39 mg/dL (80-115)
[2019-09-20 02:01] LABS: Glucose 102 mg/dL (80-115)
[2019-09-20] MEDS: Labetalol HCl 100 MG/20 ML VIAL SLOW IVP SCH ×7 (02:37→20:47)
[2019-09-20] MEDS: Gabapentin 300 MG CAP PO SCH ×3 (02:37→21:13)
[2019-09-20] MEDS: Raltegravir Potassium 400 MG TAB PO SCH ×4 (02:38→21:14)
[2019-09-20] MEDS: Nortriptyline HCl 25 MG CAP PO SCH ×3 (02:38→21:13)
[2019-09-20] MEDS: Lidocaine Patch Removal 1 EACH TOP SCH (02:38)
[2019-09-20] MEDS: Heparin 5,000 UNITS/ML VIAL SC SCH ×4 (02:39→20:44)
[2019-09-20 03:40] LABS: Actual Bicarbonate (HCO3v) 27 mEq/L (22-28); Base Excess 1.4 mEq/L (-2.0 to +3.0); Calcium, Ionized 1.03 mmol/L (1.16-1.32); Chloride (ABG LAB) 96 mmol/L (98-106); Hemoglobin (Hb) 12.5 g/dL (13.1-17.2); Potassium - ABG Lab 4.67 mmol/L (3.70-5.30); Sodium 133.9 mmol/L (133-146); pH (venous) 7.37 (7.32-7.43)
[2019-09-20 03:46] LABS: #Lymphocytes 0.3 thou/uL (1.20-3.40); #Monocytes 0.7 thou/uL (0.11-0.59); #Neutrophils 6.3 thou/uL (1.40-6.50); %Eosinophils 0.1 % (0.0-10.0); %Lymphocytes 4.6 % (21.0-51.0); %Monocytes 9.7 % (0.0-10.0); %Neutrophils 85.6 % (42.0-75.0); Hemoglobin 11.9 g/dL (14.0-18.0); Mean Corpuscular HGB CONC 30.8 g/dL (32.0-36.0); Mean Corpuscular Hemoglobin 33.6 pg (27.0-31.0); Mean Platelet Volume 9.4 fL (7.4-10.4); Platelet Count 181 thou/uL (130-400); RBC Distribution Width 21.4 % (11.5-14.5); Red Blood Cell (RBC) Count 3.55 mill/uL (4.70-6.10); White Blood Cell (WBC) Count 7.3 thou/uL (4.8-10.8)
[2019-09-20 04:12] LABS: Anion Gap 17 mmol/L (10-20); BUN (Urea Nitrogen) 42 mg/dL (8.4-25.7); Calc. Creatinine Clearance 30 mL/min (70-130); Calcium 8.6 mg/dL (7.8-10.44); Carbon Dioxide 27 mmol/L (23-31); Chloride 96 mmol/L (98-107); Estimated GFR-MDRD 31; Glucose 105 mg/dL (80-115); Magnesium 1.8 mg/dL (1.6-2.6); Potassium 4.8 mmol/L (3.5-5.1); Sodium 135 mmol/L (136-145)
[2019-09-20 06:00] LABS: Glucose 107 mg/dL (80-115)
[2019-09-20 07:58] LABS: Glucose 111 mg/dL (80-115)
--- NOTE | 2019-09-20 08:09 | CON ---
DATE OF CONSULTATION: 09/19/2019 CONSULTING PHYSICIAN: Bruce Archuleta MD REQUESTING PHYSICIAN: ER physician. REASON FOR CONSULTATION: Severe hyperkalemia in a patient with end-stage renal disease. IMPRESSION: 1. End-stage renal disease, due for dialysis today. 2. Hyperkalemia, likely in the context of dietary indiscretion, given the fact that this patient was just dialyzed 2 days ago. 3. Fever, query cause. PLAN: 1. The patient to be dialyzed right away with ultrafiltration as tolerated by hemodynamics. 2. We will maintain the current schedule Monday, , and Monday. 3. Further management will be dependent on the clinical course. HISTORY OF PRESENT ILLNESS: History is that of 64-year-old gentleman, immunosuppressed in the context of HIV, hep C, who was just discharged about 48 hours ago, status post management of sepsis, re-presented here again with fever and noted to be severely hyperkalemic with potassium of above 6, therefore need for Renal consultation. The patient is currently on BiPAP, not able to offer much of any history. Past medical history, family history, and social history remained the same. For details of this part of the history, refer to the recent admission dictation. REVIEW OF SYSTEMS: Could not be obtained from this patient. PHYSICAL EXAMINATION: GENERAL: The patient was found to be on BiPAP. VITAL SIGNS: Noted with following vital signs; afebrile. Temperature 98.9, pulse 86, respiratory rate 23, O2 saturation 94% on BiPAP, blood pressure 118/75 to 130 systolic. HEENT: Remarkable for BiPAP mask in place. CARDIOVASCULAR: First and second heart sounds were heard. RESPIRATORY SYSTEM: Clear to auscultation. DIGESTIVE SYSTEM: Revealed a benign abdomen. EXTREMITIES: No peripheral edema. SKIN: No new gross rash. LYMPHATICS: No peripheral lymphadenopathy. SUMMARY: A 64-year-old gentleman in and out of the hospital in the context of electrolyte abnormalities and fluid management. Thank you for this consultation. We will follow with you. Job ID: [id number]
[2019-09-20] MEDS: predniSONE 20 MG TAB PO SCH ×2 (08:43→09:10)
[2019-09-20] MEDS: Sevelamer Carbonate 800 MG TAB PO SCH ×4 (08:47→17:25)
[2019-09-20] MEDS ORDERED: CALCIUM LACTATE 650 MG PO SCH (09:00)
[2019-09-20] MEDS ORDERED: Vancomycin HCl 1 GM in Premix Bag 1 BAG IVPB SCH (09:00)
[2019-09-20] MEDS: Aspirin 81 mg Enteric Coated Tablet PO SCH (09:08)
[2019-09-20] MEDS: Atorvastatin Calcium 40 MG TAB PO SCH (09:09)
[2019-09-20] MEDS: Fludrocortisone Acetate 0.1 MG TAB PO SCH (09:10)
[2019-09-20] MEDS: Ascorbic Acid 500 mg Chewable Tablet PO SCH (09:10)
[2019-09-20 10:05] LABS: Glucose 110 mg/dL (80-115)
--- NOTE | 2019-09-20 10:59 | PRG ---
DATE OF SERVICE: 09/20/2019 SUBJECTIVE: Mr. Villeda was apparently readmitted through the emergency room last night for shortness of breath. He is on BiPAP all night. This was removed this morning. I repeated radiograph this morning. There is minimal if any pulmonary edema. were reviewed and it is clear, though not reliable. OBJECTIVE: VITAL SIGNS: Heart rate is in 80s, blood pressure 139/88, and respiratory rate in the 20s. LUNGS: Clear. HEART: Regular rhythm. ABDOMEN: Soft. He does have a prolonged expiratory phase. He has had a CT scan in the past as well as pulmonary perfusion imaging that did not show thromboembolic disease. He had a cardiac catheterization last admission that did not show obstructive coronary artery disease. My best guess is that he is intermittently aspirating with his history of esophageal cancer leading to bronchospasm. There is nothing on his radiograph to lead me to believe that he has a pneumonia. He had one positive blood culture from a central line that was placed in the ER within the last 24 hours, so I suspect this is a contaminant. We will add IV steroids. We will increase the frequency of his nebulizer treatments to q.3 hours. Job ID: [id number]
--- NOTE | 2019-09-20 11:09 | RAD ---
SINGLE VIEW CHEST: Date: 09/19/2019 HISTORY: Dyspnea. COMPARISON: Chest CT dated 08/20/2019. FINDINGS: Single view of the chest shows an enlarged but stable cardiomediastinal silhouette. There is stable f ullness along the right upper mediastinum. No pleural effusion is seen. Fullness is also seen in the left hilar region. IMPRESSION: Stable exam. POS: [facility]
[2019-09-20] MEDS ORDERED: Acetaminophen 650 MG Suppository PR PRN (11:34)
[2019-09-20] MEDS: methylPREDNISolone Sod Succ 40 MG VIAL IVP SCH ×2 (11:47→17:26)
[2019-09-20] MEDS: Micafungin 100 MG in Sodium Chloride 0.9% 100 ML IVPB SCH (11:50)
[2019-09-20] MEDS: Lidocaine 5% Patch TD SCH (11:52)
[2019-09-20 12:00] LABS: Glucose 166 mg/dL (80-115)
[2019-09-20] MEDS ORDERED: FLU VACC QS2019-20(6MOS UP)/PF 60 MCG/0.5 ML SYRINGE IM ONE (12:45)
[2019-09-20] MEDS ORDERED: Prevnar 13-Val Conj/PF 0.5 ML SYRINGE IM ONE (12:45)
[2019-09-20] MEDS ORDERED: Ipratropium Bromide 2.5 ml Neb NEB SCH (13:00)
[2019-09-20] MEDS: Dextrose 10% in Water 1,000 ML IV SCH (13:33)
[2019-09-20 17:20] LABS: Glucose 177 mg/dL (80-115)
[2019-09-20] MEDS: Meropenem 500 MG in Sodium Chloride 0.9% 100 ML IVPB SCH (17:26)
[2019-09-20] MEDS ORDERED: Meropenem 500 MG in Sodium Chloride 0.9% 100 ML IVPB SCH (18:00)
[2019-09-20 19:09] LABS: %CD4 (Helper/Inducer) 23.7 % (30.8-58.5); Absolute CD4 95 /uL (359-1519); Lymphocytes/Gated Cell Count 0.4 x10E3/uL (0.7-3.1); Total Lymphocyte 4 % (Not Estab.); WBC Total Count 8.4 x10E3/uL (3.4-10.8)
[2019-09-20 20:07] LABS: Glucose 112 mg/dL (80-115)
[2019-09-20] MEDS: Melatonin 3 MG TAB PO SCH (20:48)
[2019-09-20] MEDS ORDERED: Azithromycin 500 MG in Sodium Chloride 0.9% 250 ML 250 ML IVPB SCH (21:15)
--- NOTE | 2019-09-20 21:40 | PDOC.HOSPP ---
- Subjective Encounter Date: 09/20/19 Encounter Time: 09:00 Subjective: overnight, patient remained on bipap and could not be weaned to NC due to tachypnea and respiratory distress. Pending CD4 to guide further therapy - Objective Vital Signs & Weight: Vital Signs (12 hours) Temp Pulse Pulse Pulse Resp BP BP 09/20/19 20:47 76 105/70 09/20/19 19:38 09/20/19 19:00 97.5 F L 09/20/19 18:48 76 09/20/19 18:47 09/20/19 17:25 98 98/65 09/20/19 16:00 99.9 F H 09/20/19 15:20 98 09/20/19 15:19 85 26 H 09/20/19 13:31 87 100/58 L 09/20/19 12:49 109 H 30 H 09/20/19 12:00 101.8 F H 09/20/19 10:31 96 09/20/19 10:05 100 113/79 09/20/19 09:55 96 102 H 116/76 BP Pulse Ox Pulse Ox Pulse Ox 09/20/19 20:47 09/20/19 19:38 100 09/20/19 19:00 09/20/19 18:48 98 09/20/19 18:47 98 09/20/19 17:25 09/20/19 16:00 09/20/19 15:20 09/20/19 15:19 97 09/20/19 13:31 09/20/19 12:49 97 09/20/19 12:00 09/20/19 10:31 09/20/19 10:05 88 L 09/20/19 09:55 113/79 92 L 87 L Weight Weight 162 lb 11.218 oz Most Recent Monitor Data Heart Rate from ECG 84 NIBP 126/87 NIBP BP-Mean 100 Respiration from ECG 20 SpO2 97 I&O: 09/19/19 09/20/19 09/21/19 06:59 06:59 06:59 Intake Total 1267 990 Output Total 0 0 Balance 1267 990 Result Diagrams: 09/20/19 03:31 09/20/19 19:34 Additional Labs: Accuchecks 09/20/19 09/20/19 09/20/19 03:38 01:40 00:12 POC Glucose 110 113 H 150 H 09/19/19 09/19/19 09/19/19 23:01 22:56 22:52 POC Glucose 207 H 63 L 197 H 09/19/19 09/19/19 09/19/19 22:20 21:39 21:01 POC Glucose 50 L* 42 L* 81 09/19/19 09/19/19 09/19/19 19:51 17:08 17:07 POC Glucose Less than 35 L* 35 L* Less than 35 L* Radiology Reviewed by me: Yes Hospitalist ROS - Review of Systems Constitutional: reports: fever, chills, sweats, weakness Respiratory: reports: cough, shortness of breath, sputum Cardiovascular: denies: chest pain, palpitations, orthopnea, paroxysmal noc. dyspnea, edema, light headedness, other Gastrointestinal: denies: nausea, vomiting, abdominal pain, diarrhea, constipation, melena, hematochezia, other Skin: denies: rash Neurological: reports: weakness - Medication Medications: Active Medications Generic Name Dose Route Start Last Admin Trade Name Freq PRN Reason Stop Dose Admin Albuterol/Ipratropium 3 ml 09/20/19 13:00 09/20/19 18:47 Duoneb NEB 3 ml [id number] ESME Administration Ascorbic Acid 500 mg 09/20/19 09:00 09/20/19 09:10 Vitamin C PO 500 mg DAILY ESME Administration Aspirin 81 mg 09/20/19 09:00 09/20/19 09:08 Ecotrin PO 81 mg DAILY ESEM Administration Atorvastatin Calcium 40 mg 09/20/19 09:00 09/20/19 09:09 Lipitor PO 40 mg DAILY ESME Administration Dextrose/Water 25 gm 09/19/19 16:30 09/19/19 21:38 Dextrose 50% SLOW IVP 25 gm PRN PRN Administration Hypoglycemia Etravirine 200 mg 09/19/19 18:00 09/20/19 17:26 Intelence PO Not Given BID-PC ESME Fludrocortisone Acetate 0.1 mg 09/20/19 09:00 09/20/19 09:10 Florinef PO 0.1 mg DAILY ESME Administration Gabapentin 300 mg 09/19/19 21:00 09/20/19 21:13 Neurontin PO 300 mg HS ESME Administration Heparin Sodium (Porcine) 5,000 units 09/19/19 09:00 09/20/19 20:44 Heparin SC 5,000 units TID ESME Administration Dextrose/Water 1,000 mls @ 50 mls/hr 09/19/19 17:45 09/20/19 13:33 Dextrose 10% In Water IV 1,000 mls .Q20H ESME Administration Meropenem 500 mg/ Sodium 100 mls @ 200 mls/hr 09/20/19 18:00 09/20/19 17:26 Chloride IVPB 100 mls Q24H ESME Administration Micafungin Sodium 100 mg/ 100 mls @ 100 mls/hr 09/20/19 12:00 09/20/19 11:50 Sodium Chloride IVPB 100 mls 1200 ESME Administration Labetalol HCl 10 mg 09/19/19 21:00 09/20/19 20:47 Normodyne SLOW IVP Not Given Q4HR ESME Lidocaine 1 patch 09/19/19 12:00 09/20/19 11:52 Lidoderm 5% Patch TD 1 patch Q24H ESME Administration Melatonin 9 mg 09/19/19 21:00 09/20/19 20:48 Melatonin PO Not Given HS ESME Miscellaneous Medication 1 each 09/19/19 23:59 09/20/19 02:38 Lidocaine Patch Removal TOP 1 each 2359 ESME Administration Nortriptyline HCl 25 mg 09/19/19 21:00 09/20/19 21:13 Pamelor PO 25 mg HS ESME Administration Pantoprazole Sodium 40 mg 09/20/19 09:00 09/20/19 09:10 Protonix PO 40 mg DAILY ESME Administration Raltegravir 400 mg 09/19/19 21:00 09/20/19 21:14 Isentress PO 400 mg BID ESME Administration Sevelamer Carbonate 800 mg 09/19/19 12:00 09/20/19 17:25 Renvela PO Not Given TID-WM ESME Zidovudine 100 mg 09/19/19 14:00 09/20/19 21:13 Retrovir PO 100 mg Q8HR ESME Administration - Exam General Appearance: awake alert, ill appearing Neck: no JVD Heart: no murmur, no gallops, no rubs Heart - other findings: regular rhythm, mild tachcardia Respiratory: rhonchi, tachypneic Respiratory - other findings: labored breathing Gastrointestinal: soft, non-tender Extremities - other findings: clammy extremities Psychiatric: normal affect, normal behavior, A&O x 3 Hosp A/P (1) Sepsis associated with internal vascular access Code(s): T82.7XXA - INFECT/INFLM REACT D/T OTH CARDI/VASC DEV/IMPLNT/GRFT, INIT ; A41.9 - SEPSIS, UNSPECIFIED ORGANISM Status: Acute (2) Acute respiratory failure with hypoxia and hypercapnia Code(s): J96.01 - ACUTE RESPIRATORY FAILURE WITH HYPOXIA; J96.02 - ACUTE RESPIRATORY FAILURE WITH HYPERCAPNIA Status: Acute (3) Acute encephalopathy Code(s): G93.40 - ENCEPHALOPATHY, UNSPECIFIED Status: Acute (4) Acute hyperkalemia Code(s): E87.5 - HYPERKALEMIA Status: Acute (5) HTN (hypertension) Code(s): I10 - ESSENTIAL (PRIMARY) HYPERTENSION Status: Chronic Qualifiers: Hypertension type: essential hypertension Qualified Code(s): I10 - Essential (primary) hypertension - Plan despite escalation of antibiotics, fever persists. Has had episode of fever, hypoxic respiratory failure, and cough for more than three weeks now without detection of infectious etiology. later today (09/20) CD4 came back as < 100. This presentation typical of PCP though mycobactera and / or fungal infectons are also possible. -started bactrm iv renally dosed, and considerng PO2 < 70, started on steroids as well (to which he responded during the last admission) - isolatioin and workup fungi, mycobacteria -repeat CXR in AM -ID consulted
[2019-09-20] MEDS ORDERED: methylPREDNISolone Sod Succ 40 MG VIAL IVP SCH (22:15)
[2019-09-20] MEDS ORDERED: methylPREDNISolone Sod Succ/PF 125 MG/2 ML VIAL IVP SCH (23:59)
[2019-09-21] MEDS: Lidocaine Patch Removal 1 EACH TOP SCH
[2019-09-21 00:15] LABS: Glucose 152 mg/dL (80-115)
[2019-09-21] MEDS: Labetalol HCl 100 MG/20 ML VIAL SLOW IVP SCH ×6 (02:17→21:39)
[2019-09-21 03:56] LABS: #Lymphocytes 0.3 thou/uL (1.20-3.40); #Monocytes 0.4 thou/uL (0.11-0.59); #Neutrophils 3.2 thou/uL (1.40-6.50); %Basophils 0.4 % (0.0-1.0); %Eosinophils 0.8 % (0.0-10.0); %Lymphocytes 8.5 % (21.0-51.0); %Neutrophils 81.4 % (42.0-75.0); Mean Corpuscular HGB CONC 32.1 g/dL (32.0-36.0); Mean Corpuscular Hemoglobin 36.1 pg (27.0-31.0); Platelet Count 132 thou/uL (130-400); RBC Distribution Width 20.9 % (11.5-14.5); Red Blood Cell (RBC) Count 3.04 mill/uL (4.70-6.10); White Blood Cell (WBC) Count 3.9 thou/uL (4.8-10.8)
[2019-09-21 04:08] LABS: Anion Gap 20 mmol/L (10-20); BUN (Urea Nitrogen) 59 mg/dL (8.4-25.7); Calc. Creatinine Clearance 24 mL/min (70-130); Calcium 8.4 mg/dL (7.8-10.44); Carbon Dioxide 20 mmol/L (23-31); Chloride 94 mmol/L (98-107); Estimated GFR-MDRD 23; Glucose 120 mg/dL (80-115); Magnesium 1.8 mg/dL (1.6-2.6); Potassium 5.1 mmol/L (3.5-5.1); Sodium 129 mmol/L (136-145)
[2019-09-21 04:17] LABS: Vancomycin, Random 12.7 ug/mL (See Comment)
[2019-09-21] MEDS: Sevelamer Carbonate 800 MG TAB PO SCH ×3 (08:00→18:17)
--- NOTE | 2019-09-21 09:00 | PRG ---
DATE OF SERVICE: 09/21/2019 SUBJECTIVE: Brant Villeda is in the ICU this morning. He is awake, alert, and responsive. He was briefly placed on BiPAP for respiratory failure, retained secretions. He is much more awake this morning. He was just discharged from the hospital 24 hours ago. OBJECTIVE: VITAL SIGNS: His pulse is 100, blood pressure is respirations 18. CHEST: Extensive rhonchi and crackles. CARDIAC: Normal S1, S2. No gallop. ABDOMEN: No mass. On examination, otherwise this morning, VITAL SIGNS: Temperature 98, respirations 18, saturations 100% on 3 L, blood pressure 90/65. CHEST: Extensive rhonchi and crackles. CARDIAC: Sinus tach. ABDOMEN: Soft. LABORATORY DATA: Creatinine 3.3, sodium 129. White count 3000, H and H 11 and 34. IMAGING STUDIES: Chest x-ray shows cardiomegaly and there is a right-sided infiltrate. IMPRESSION: Multiorgan failure, respiratory failure, renal failure, aspiration pneumonia. PLAN: Continue neb treatments, steroids, and antibiotics. I doubt he has Staph sepsis, more than likely his present cultures are contamination. Continue aggressive PT, supportive care. Job ID: [id number]
--- NOTE | 2019-09-21 09:41 | PDOC.HOSPP ---
- Subjective Encounter Date: 09/21/19 Encounter Time: 09:39 Subjective: Mr. Villeda was seen today in follow-up of pneumonia. He is a bit drowsy, but does not have any complaints. He denies feeling short of breath. He admits to some soreness on his bottom. - Objective Vital Signs & Weight: Vital Signs (12 hours) Temp Pulse Resp BP Pulse Ox 09/21/19 07:30 98.4 F 09/21/19 07:03 73 21 H 100 09/21/19 05:33 70 90/59 L 09/21/19 03:54 100 09/21/19 02:17 70 115/84 09/21/19 02:00 98.1 F 09/21/19 01:06 70 09/21/19 01:05 98 09/20/19 23:00 98.5 F 09/20/19 22:06 98 Weight Weight 166 lb 10.711 oz Most Recent Monitor Data Heart Rate from ECG 82 NIBP 127/75 NIBP BP-Mean 92 Respiration from ECG 18 SpO2 100 I&O: 09/20/19 09/21/19 09/22/19 06:59 06:59 06:59 Intake Total 1267 2001 Output Total 0 0 0 Balance 1267 2001 30 Result Diagrams: 09/21/19 03:32 09/21/19 03:32 Hospitalist ROS - Medication Medications: Active Medications Generic Name Dose Route Start Last Admin Trade Name Freq PRN Reason Stop Dose Admin Albuterol/Ipratropium 3 ml 09/20/19 13:00 09/21/19 07:03 Duoneb NEB 3 ml [id number] ESME Administration Ascorbic Acid 500 mg 09/20/19 09:00 09/20/19 09:10 Vitamin C PO 500 mg DAILY ESME Administration Aspirin 81 mg 09/20/19 09:00 09/20/19 09:08 Ecotrin PO 81 mg DAILY ESME Administration Atorvastatin Calcium 40 mg 09/20/19 09:00 09/20/19 09:09 Lipitor PO 40 mg DAILY ESME Administration Dextrose/Water 25 gm 09/19/19 16:30 09/19/19 21:38 Dextrose 50% SLOW IVP 25 gm PRN PRN Administration Hypoglycemia Etravirine 200 mg 09/19/19 18:00 09/20/19 17:26 Intelence PO Not Given BID-PC ESME Fludrocortisone Acetate 0.1 mg 09/20/19 09:00 09/20/19 09:10 Florinef PO 0.1 mg DAILY ESME Administration Gabapentin 300 mg 09/19/19 21:00 09/20/19 21:13 Neurontin PO 300 mg HS ESME Administration Heparin Sodium (Porcine) 5,000 units 09/19/19 09:00 09/20/19 20:44 Heparin SC 5,000 units TID ESME Administration Dextrose/Water 1,000 mls @ 50 mls/hr 09/19/19 17:45 09/20/19 13:33 Dextrose 10% In Water IV 1,000 mls .Q20H ESME Administration Meropenem 500 mg/ Sodium 100 mls @ 200 mls/hr 09/20/19 18:00 09/20/19 17:26 Chloride IVPB 100 mls Q24H ESME Administration Micafungin Sodium 100 mg/ 100 mls @ 100 mls/hr 09/20/19 12:00 09/20/19 11:50 Sodium Chloride IVPB 100 mls 1200 ESME Administration Labetalol HCl 10 mg 09/19/19 21:00 09/21/19 05:33 Normodyne SLOW IVP Not Given Q4HR ESME Lidocaine 1 patch 09/19/19 12:00 09/20/19 11:52 Lidoderm 5% Patch TD 1 patch Q24H ESME Administration Melatonin 9 mg 09/19/19 21:00 09/20/19 20:48 Melatonin PO Not Given HS ESME Miscellaneous Medication 1 each 09/19/19 23:59 09/21/19 00:00 Lidocaine Patch Removal TOP 1 each 6409 ESME Administration Nortriptyline HCl 25 mg 09/19/19 21:00 09/20/19 21:13 Pamelor PO 25 mg HS ESME Administration Pantoprazole Sodium 40 mg 09/20/19 09:00 09/20/19 09:10 Protonix PO 40 mg DAILY ESME Administration Raltegravir 400 mg 09/19/19 21:00 09/20/19 21:14 Isentress PO 400 mg BID ESME Administration Sevelamer Carbonate 800 mg 09/19/19 12:00 09/20/19 17:25 Renvela PO Not Given TID-WM ESME Zidovudine 100 mg 09/19/19 14:00 09/21/19 05:40 Retrovir PO 100 mg Q8HR ESME Administration - Exam General Appearance: NAD, awake alert Eye: PERRL, anicteric sclera ENT: normocephalic atraumatic Heart: RRR, no murmur, no gallops, no rubs Respiratory: CTAB, no wheezes, no rales, no ronchi, normal chest expansion Gastrointestinal: soft, non-tender, non-distended, normal bowel sounds, no palpable masses, no hepatomegaly Extremities: 1+ LE edema (1+ edema in the lower extremity- he is post amputation) Extremities - other findings: Left AKA Hosp A/P (1) Acute respiratory failure Code(s): J96.00 - ACUTE RESPIRATORY FAILURE, UNSP W HYPOXIA OR HYPERCAPNIA Status: Acute (2) Fever Code(s): R50.9 - FEVER, UNSPECIFIED Status: Acute (3) ESRD (end stage renal disease) on dialysis Code(s): N18.6 - END STAGE RENAL DISEASE; Z99.2 - DEPENDENCE ON RENAL DIALYSIS Status: Chronic (4) Esophageal cancer Status: Chronic Qualifiers: Malignant neoplasm of esophagus location: unspecified location Qualified Code(s): C15.9 - Malignant neoplasm of esophagus, unspecified (5) HIV (human immunodeficiency virus infection) Code(s): B20 - HUMAN IMMUNODEFICIENCY VIRUS [HIV] DISEASE Status: Chronic Qualifiers: HIV symptom status: unspecified Qualified Code(s): B20 - Human immunodeficiency virus [HIV] disease (6) HTN (hypertension) Code(s): I10 - ESSENTIAL (PRIMARY) HYPERTENSION Status: Chronic Qualifiers: Hypertension type: essential hypertension Qualified Code(s): I10 - Essential (primary) hypertension - Plan * Acute Respiratory failure- continue as per Manager Customer- continue Meropenem, Vancomycin, and Micafungin * Await recommendations from ID * ESRD- continue dialysis as per Nephrology * HTN- blood pressure is stable * HIV- as per ID- CD4 count is a bit low * Agree with Speech Therapy consult and swallow evaluation * Mobilize
[2019-09-21] MEDS: Ascorbic Acid 500 mg Chewable Tablet PO SCH (09:42)
[2019-09-21] MEDS: Aspirin 81 mg Enteric Coated Tablet PO SCH (09:42)
[2019-09-21] MEDS: methylPREDNISolone Sod Succ 40 MG VIAL IVP SCH ×2 (09:43→20:50)
[2019-09-21] MEDS: Atorvastatin Calcium 40 MG TAB PO SCH (09:43)
[2019-09-21] MEDS: Fludrocortisone Acetate 0.1 MG TAB PO SCH (09:44)
[2019-09-21] MEDS: Heparin 5,000 UNITS/ML VIAL SC SCH ×3 (09:44→20:50)
[2019-09-21] MEDS: Raltegravir Potassium 400 MG TAB PO SCH ×2 (09:46→20:50)
--- NOTE | 2019-09-21 10:50 | RAD ---
PORTABLE CHEST: HISTORY: Respiratory distress. COMPARISON: 09/20/2019 study. FINDINGS: Heart size is enlarged. There are bibasilar parenchymal lung changes. Changes in the left base appe ar fairly similar to the prior exam. Changes in the right base are somewhat worsened and could repre sent atelectasis or developing infiltrate. IMPRESSION: Slight worsening parenchymal changes in the right lung base. POS: H
[2019-09-21] MEDS: Lidocaine 5% Patch TD SCH (12:25)
[2019-09-21] MEDS: Dextrose 10% in Water 1,000 ML IV SCH (12:39)
[2019-09-21] MEDS: Micafungin 100 MG in Sodium Chloride 0.9% 100 ML IVPB SCH (14:51)
[2019-09-21] MEDS: Oseltamivir 6 MG/ML ORAL SUSP PO SCH (15:00)
--- NOTE | 2019-09-21 15:55 | CON ---
DATE OF CONSULTATION: 09/21/2019 REASON FOR CONSULTATION: Fever, possible sepsis. HISTORY OF PRESENT ILLNESS: A 64-year-old who is known to us from prior admissions. Last time I saw him was in July 19, when he presented with a history of longstanding HIV infection, well controlled on antiretroviral therapy with the last viral load undetectable in February 2019, also history of type 2 diabetes, end-stage renal disease, on hemodialysis through an AV fistula in the left upper extremity. He has been diagnosed with esophageal cancer and presumably in remission after chemoradiation therapy, although this has not been confirmed. He has had one episode of C diff colitis, diffuse gastritis with hematemesis, had a confusional state admission and then in July, he developed transient MRSA bacteremia. We could not identify a source. A port was removed and he received vancomycin sliding scale at dialysis until the beginning of August and now he is brought in from [facility] with tachypnea and hypoxemia. His BP initially was 180/20, heart rate 110, O2 saturations were in the high 80s on room air. In the emergency room, he had a temp of 103 and had obvious respiratory distress with coarse breath sounds, hard for him to speak because of tachypnea. The remainder of the examination was not particularly remarkable as there were other findings included white cell count 8.8, hemoglobin 14, platelets 250, 73% neutrophils and sodium 134, potassium 6.7, creatinine 3.37. Liver profile normal. Albumin 3.6. He has had a CD4 count done which was 95, the percentage was 23.7. Total lymphocyte count was fairly stable, but the percentage CD4 had dropped probably associated with the acute illness. Currently, Mr. Villeda is in the ICU. He is not intubated. He is arousable, but drowsy, falls asleep right away, a bit disoriented. I could not obtain much history from him. According to the nurse, he has had no diarrhea. He is not as tachypneic as before. No abdominal pain. He has been hemodialyzed at the moment. PAST MEDICAL HISTORY: HIV seropositive status with adequate control with antiretroviral therapy including AZT, etravirine, and Isentress. The last CD4 count was around 300 before this one. End-stage renal disease, secondary to type 2 diabetes, on hemodialysis with left upper extremity AV fistula, prior episode of Clostridium difficile colitis, recently diagnosed MRSA bacteremia, transient, treated for 4 weeks through sliding scale vancomycin at dialysis, also esophageal cancer, presumably in remission after chemoradiation, although this has not been confirmed. The patient had a port in the right subclavian location which has been removed in the context of the MRSA bacteremia, has had gastritis with hematemesis and melena, COPD, hypertension, IVONNE. FAMILY HISTORY: Noncontributory. SOCIAL HISTORY: Former smoker, lives at [facility]. 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 ALLERGY HISTORY: Clindamycin, Paxil, Keflex, Cipro, dalteparin, and insulin. MEDICATIONS: At the moment 1. DuoNeb. 2. Vitamin C. 3. Ecotrin. 4. Lipitor. 5. Intelence. 6. Florinef. 7. Neurontin. 8. Glucagon. 9. Meropenem. 10. Micafungin. 11. Vancomycin. PHYSICAL EXAMINATION: VITAL SIGNS: T-max 102, he is now 98.4. Blood pressure 130/70, pulse 80, respirations 18, O2 saturation 100. SKIN: Exam shows the accessed left upper extremity AV fistula. He has areas of stage II small ulcerations in the presacral region, less than 1 cm in diameter. No lymphadenopathy. HEENT: Ocular movements conjugate. Pupils are constricted. Sclerae white. Oral cavity is moist. Numerous missing teeth. No lesions. NECK: Some jugular vein distention. LUNGS: With symmetric air entry. Somewhat coarse breath sounds but no obvious crackles or wheezing. HEART: S1-S2 regular, rate diminished heart sounds. Systolic aortic murmur. No S3. ABDOMEN: Soft, not distended or tender. No ascites. No bladder distention. EXTREMITIES: Left AKA intact, right lower extremity with no lesions. Pulses are diminished in dorsalis pedis. 1+ edema noted. He is diffusely weak, but no focal weakness, arousable, establishes eye contact, recognized me, knows he is in the hospital, but could not tell me which and other than the elements of the history, very limited due to word-finding problems and recall problems due to encephalopathy. LABORATORY DATA: White cell count now is down to 3.9, hemoglobin 11, platelets 132, 81% neutrophils and creatinine 3.37. CD4 is 95. Chest x-ray from September 21 with bibasilar parenchymal lung changes, somewhat worse in the right lung base changes. The influenza A and B antigen testing, which was done in emergency room was negative, but the respiratory virus PCR was positive for influenza A from yesterday. ASSESSMENT: 1. Longstanding HIV infection, previously well controlled HIV viral load. 2. End-stage renal disease secondary to type 2 diabetes, on hemodialysis through an AV fistula. 3. Various complications with the most recent one including methicillin-resistant Staphylococcus aureus bacteremia which appeared to be transient and was treated presumably at dialysis for 4 weeks, unknown primary site, a port was suspected and was removed. 4. Respiratory symptoms with subsegmental abnormalities in lung imaging study and influenza A positive PCR. DISCUSSION: Most likely scenario is an influenza A infection in the setting of immunosuppression associated with HIV infection and end-stage renal disease. We will start oseltamivir adjusted for renal function. Discontinue micafungin. Switch him to ceftriaxone instead of meropenem and continue vancomycin. In the next few days, if blood cultures remain negative and there is clinical improvement, then discontinue antimicrobial therapy. The total duration of the oseltamivir will be five days. The dose will be given after dialysis only x3. Continue anti-retroviral therapy. Job ID: [id number]
[2019-09-21] MEDS: Meropenem 500 MG in Sodium Chloride 0.9% 100 ML IVPB SCH (18:19)
[2019-09-21] MEDS: Gabapentin 300 MG CAP PO SCH (20:50)
[2019-09-21] MEDS: Nortriptyline HCl 25 MG CAP PO SCH (20:51)
[2019-09-21] MEDS: Melatonin 3 MG TAB PO SCH (21:39)
[2019-09-22] MEDS: Acetaminophen 325 MG TAB PO PRN ×2 (00:10→12:57)
[2019-09-22] MEDS: Lidocaine Patch Removal 1 EACH TOP SCH (00:10)
[2019-09-22] MEDS: Labetalol HCl 100 MG/20 ML VIAL SLOW IVP SCH ×6 (01:00→20:09)
[2019-09-22] MEDS: Dextrose 10% in Water 1,000 ML IV SCH (06:16)
[2019-09-22] MEDS: Heparin 5,000 UNITS/ML VIAL SC SCH ×3 (08:55→20:08)
[2019-09-22] MEDS: Ascorbic Acid 500 mg Chewable Tablet PO SCH (08:55)
[2019-09-22] MEDS: Sevelamer Carbonate 800 MG TAB PO SCH ×3 (08:55→17:22)
[2019-09-22] MEDS: Aspirin 81 mg Enteric Coated Tablet PO SCH (08:55)
[2019-09-22] MEDS: Oseltamivir 6 MG/ML ORAL SUSP PO SCH (08:55)
[2019-09-22] MEDS: Fludrocortisone Acetate 0.1 MG TAB PO SCH (08:55)
[2019-09-22] MEDS: Atorvastatin Calcium 40 MG TAB PO SCH (08:55)
[2019-09-22] MEDS: methylPREDNISolone Sod Succ 40 MG VIAL IVP SCH ×2 (08:56→20:10)
--- NOTE | 2019-09-22 09:12 | PDOC.HOSPP ---
- Subjective Encounter Date: 09/22/19 Encounter Time: 09:08 Subjective: Mr. Villeda was seen today in follow-up of respiratory failure. He appears a bit stronger today. He says he still feels weak. No new complaints. - Objective Vital Signs & Weight: Vital Signs (12 hours) Temp Pulse Resp BP Pulse Ox 09/22/19 08:56 80 90/68 09/22/19 08:12 80 21 H 95 09/22/19 05:00 88 103/67 09/22/19 03:00 99.6 F 09/22/19 02:25 88 09/22/19 01:00 88 09/22/19 00:00 101.6 F H 09/21/19 23:36 102 H 09/21/19 23:35 97 09/21/19 21:39 87 132/79 Weight Weight 166 lb 7.184 oz Most Recent Monitor Data Heart Rate from ECG 76 NIBP 90/68 NIBP BP-Mean 75 Respiration from ECG 22 SpO2 98 I&O: 09/21/19 09/22/19 09/23/19 06:59 06:59 06:59 Intake Total 2001 1920 Output Total 0 0 Balance 2001 1920 Result Diagrams: 09/21/19 03:32 09/21/19 03:32 Additional Labs: Accuchecks 09/22/19 09/21/19 09/21/19 04:19 23:54 21:41 POC Glucose 104 126 H 78 09/21/19 09/21/19 16:43 11:10 POC Glucose 97 124 H Hospitalist ROS - Medication Medications: Active Medications Generic Name Dose Route Start Last Admin Trade Name Darioq PRN Reason Stop Dose Admin Acetaminophen 650 mg 09/21/19 23:56 09/22/19 00:10 Tylenol PO 650 mg Q4H PRN Administration Fever > 101 Albuterol/Ipratropium 3 ml 09/21/19 19:00 09/22/19 08:12 Duoneb NEB 3 ml [id number] ESME Administration Ascorbic Acid 500 mg 09/20/19 09:00 09/22/19 08:55 Vitamin C PO 500 mg DAILY ESME Administration Aspirin 81 mg 09/20/19 09:00 09/22/19 08:55 Ecotrin PO 81 mg DAILY ESME Administration Atorvastatin Calcium 40 mg 09/20/19 09:00 09/22/19 08:55 Lipitor PO 40 mg DAILY ESME Administration Dextrose/Water 25 gm 09/19/19 16:30 09/19/19 21:38 Dextrose 50% SLOW IVP 25 gm PRN PRN Administration Hypoglycemia Etravirine 200 mg 09/19/19 18:00 09/21/19 18:18 Intelence PO 200 mg BID-PC ESME Administration Fludrocortisone Acetate 0.1 mg 09/20/19 09:00 09/22/19 08:55 Florinef PO 0.1 mg DAILY ESME Administration Gabapentin 300 mg 09/19/19 21:00 09/21/19 20:50 Neurontin PO 300 mg HS ESME Administration Heparin Sodium (Porcine) 5,000 units 09/19/19 09:00 09/22/19 08:55 Heparin SC 5,000 units TID ESME Administration Dextrose/Water 1,000 mls @ 50 mls/hr 09/19/19 17:45 09/22/19 06:16 Dextrose 10% In Water IV 1,000 mls .Q20H ESME Administration Meropenem 500 mg/ Sodium 100 mls @ 200 mls/hr 09/20/19 18:00 09/21/19 18:19 Chloride IVPB 100 mls Q24H ESME Administration Micafungin Sodium 100 mg/ 100 mls @ 100 mls/hr 09/20/19 12:00 09/21/19 14:51 Sodium Chloride IVPB 100 mls 1200 ESME Administration Labetalol HCl 10 mg 09/19/19 21:00 09/22/19 08:56 Normodyne SLOW IVP Not Given Q4HR ESME Lidocaine 1 patch 09/19/19 12:00 09/21/19 12:25 Lidoderm 5% Patch TD 1 patch Q24H ESME Administration Melatonin 9 mg 09/19/19 21:00 09/21/19 21:39 Melatonin PO 9 mg HS ESME Administration Methylprednisolone Sodium Succinate 40 mg 09/21/19 09:00 09/22/19 08:56 Solu-Medrol IVP 40 mg Q12HR ESME Administration Miscellaneous Medication 1 each 09/19/19 23:59 09/22/19 00:10 Lidocaine Patch Removal TOP 1 each 2359 ESME Administration Nortriptyline HCl 25 mg 09/19/19 21:00 09/21/19 20:51 Pamelor PO 25 mg HS ESME Administration Oseltamivir Phosphate 30 mg 09/22/19 09:00 09/22/19 08:55 Tamiflu PO 30 mg DAILY ESME Administration Pantoprazole Sodium 40 mg 09/20/19 09:00 09/22/19 08:55 Protonix PO 40 mg DAILY ESME Administration Raltegravir 400 mg 09/19/19 21:00 09/21/19 20:50 Isentress PO 400 mg BID ESME Administration Sevelamer Carbonate 800 mg 09/19/19 12:00 09/22/19 08:55 Renvela PO 800 mg TID-WM ESME Administration Zidovudine 100 mg 09/19/19 14:00 09/22/19 06:16 Retrovir PO 100 mg Q8HR ESME Administration - Exam Eye: PERRL, anicteric sclera Heart: RRR, no murmur, no gallops, no rubs, normal peripheral pulses Respiratory: CTAB (with the exception of occasional rhonchi,nd coarse breath sounds), no wheezes, no rales, normal chest expansion Gastrointestinal: soft, non-tender, non-distended, normal bowel sounds, no palpable masses, no hepatomegaly Extremities: 1+ LE edema (+ edema in both upper extremities as well as the leg as well.) Hosp A/P (1) Acute respiratory failure Code(s): J96.00 - ACUTE RESPIRATORY FAILURE, UNSP W HYPOXIA OR HYPERCAPNIA Status: Acute (2) Fever Code(s): R50.9 - FEVER, UNSPECIFIED Status: Acute (3) ESRD (end stage renal disease) on dialysis Code(s): N18.6 - END STAGE RENAL DISEASE; Z99.2 - DEPENDENCE ON RENAL DIALYSIS Status: Chronic (4) Esophageal cancer Status: Chronic Qualifiers: Malignant neoplasm of esophagus location: unspecified location Qualified Code(s): C15.9 - Malignant neoplasm of esophagus, unspecified (5) HIV (human immunodeficiency virus infection) Code(s): B20 - HUMAN IMMUNODEFICIENCY VIRUS [HIV] DISEASE Status: Chronic Qualifiers: HIV symptom status: unspecified Qualified Code(s): B20 - Human immunodeficiency virus [HIV] disease (6) HTN (hypertension) Code(s): I10 - ESSENTIAL (PRIMARY) HYPERTENSION Status: Chronic Qualifiers: Hypertension type: essential hypertension Qualified Code(s): I10 - Essential (primary) hypertension - Plan * Acute Respiratory failure- This is due to pneumonia from influenza- Tamiflu has been added, which is being dosed for renal function * He has been taken off Meropenem, and placed on Rocephin, and continuing Vancomycin, by Dr. Morris * ESRD- continue dialysis as per Nephrology * HTN- blood pressure is stable * HIV- continue HAART * Mobilize
--- NOTE | 2019-09-22 09:32 | PRG ---
DATE OF SERVICE: 09/22/2019 SUBJECTIVE: Brant Villeda remains in the ICU. Still, he is somewhat encephalopathic, but less respiratory distress. OBJECTIVE: VITAL SIGNS: Pulse is 86, blood pressure is 140/80, saturations 98%, and respirations 30. CHEST: Extensive rhonchi and crackles. CARDIAC: Normal S1 and S2. No gallops. ABDOMEN: Soft. IMAGING DATA: His chest x-ray still shows cardiomegaly and bilateral infiltrates. IMPRESSION AND PLAN: Respiratory failure, aspiration, carcinoma of esophagus, renal failure, and severe deconditioning. Continue PT and supportive care. He has HIV, being followed by Infectious Disease. I would discontinue vancomycin. Continue neb treatments and steroids. We will follow. Job ID: [id number]
[2019-09-22] MEDS: Lidocaine 5% Patch TD SCH (12:03)
[2019-09-22] MEDS: Micafungin 100 MG in Sodium Chloride 0.9% 100 ML IVPB SCH (12:03)
[2019-09-22] MEDS: Raltegravir Potassium 400 MG TAB PO SCH ×2 (12:04→20:11)
[2019-09-22 12:08] LABS: HIV-1 Quantitative, RNA PCR <20 copies/mL (.)
--- NOTE | 2019-09-22 17:05 | PRG ---
DATE OF SERVICE: 09/20/2019 SUBJECTIVE: The patient noted with the following vital signs. OBJECTIVE: VITAL SIGNS: Afebrile. Temperature maximum 101.8, pulse 76, and blood pressure 100/58. HEENT: Unremarkable. CARDIOVASCULAR SYSTEM: First and second heart sounds were heard. RESPIRATORY SYSTEM: Clear to auscultation. DIGESTIVE SYSTEM: Revealed a benign abdomen. EXTREMITIES: No peripheral edema. SKIN: No new gross rash. LYMPHATICS: No peripheral lymphadenopathy. IMPRESSION: 1. End-stage renal disease, on dialysis. 2. Sepsis. 3. Immunosuppress state. PLAN: 1. The patient to be dialyzed tomorrow in accordance with the schedule. 2. Further management to be dependent on the clinical course. Job ID: [id number]
--- NOTE | 2019-09-22 17:17 | PRG ---
DATE OF SERVICE: 09/21/2019 SUBJECTIVE: The patient noted to be somewhat hypoglycemic, otherwise hemodynamically stable. OBJECTIVE: HEENT: Unremarkable. CARDIOVASCULAR SYSTEM: First and second heart sounds were heard. EXTREMITIES: No peripheral edema. SKIN: No new gross rash. LYMPHATICS: No peripheral lymphadenopathy. IMPRESSION: 1. End-stage renal disease. 2. Immunosuppressed. 3. Fever. PLAN: 1. Continue current dialysis regimen. The patient due for dialysis today. 2. Further management to be dependent on the clinical course. Job ID: [id number]
[2019-09-22] MEDS: Meropenem 500 MG in Sodium Chloride 0.9% 100 ML IVPB SCH (17:22)
--- NOTE | 2019-09-22 17:30 | PRG ---
DATE OF SERVICE: 09/22/2019 SUBJECTIVE: The patient is seen and examined today, noted with the following vital signs. OBJECTIVE: VITAL SIGNS: Afebrile, temperature 99. He is with temperature maximum of 101.6, pulse 80, respiratory rate of 21, blood pressure 132/79, and O2 saturation 97%. HEENT: Unremarkable. CARDIOVASCULAR SYSTEM: First and second heart sounds were heard. RESPIRATORY SYSTEM: Clear to auscultation. DIGESTIVE SYSTEM: Revealed a benign abdomen. Positive bowel sounds. EXTREMITIES: No peripheral edema. SKIN: No new gross rash. LYMPHATICS: No peripheral lymphadenopathy. IMPRESSION: 1. End-stage renal disease, on dialysis. 2. Persistent hypoglycemia, query cause. 3. Fever, possibly related to flu. 4. Immunosuppressed. PLAN: 1. May consider dialyzing this patient with emphasis on ultrafiltration tomorrow, while continue with his regular dialysis on Monday, , and Monday schedule. 2. Further management to be dependent on the clinical course. Job ID: [id number]
[2019-09-22] MEDS: Gabapentin 300 MG CAP PO SCH (20:08)
[2019-09-22] MEDS: Nortriptyline HCl 25 MG CAP PO SCH (20:10)
[2019-09-22] MEDS: Melatonin 3 MG TAB PO SCH (20:58)
[2019-09-23] MEDS: Lidocaine Patch Removal 1 EACH TOP SCH (00:20)
[2019-09-23] MEDS: Dextrose 10% in Water 1,000 ML IV SCH (02:17)
[2019-09-23] MEDS: Labetalol HCl 100 MG/20 ML VIAL SLOW IVP SCH ×6 (02:17→20:51)
[2019-09-23] MEDS: Aspirin 81 mg Enteric Coated Tablet PO SCH (08:48)
[2019-09-23] MEDS: Ascorbic Acid 500 mg Chewable Tablet PO SCH (08:48)
[2019-09-23] MEDS: Sevelamer Carbonate 800 MG TAB PO SCH ×3 (08:48→17:15)
[2019-09-23] MEDS: Fludrocortisone Acetate 0.1 MG TAB PO SCH (08:48)
[2019-09-23] MEDS: Atorvastatin Calcium 40 MG TAB PO SCH (08:48)
[2019-09-23] MEDS: Bacteriostatic Water 30 ML VIAL FS PRN ×2 (08:49→20:50)
[2019-09-23] MEDS: methylPREDNISolone Sod Succ 40 MG VIAL IVP SCH ×2 (08:49→20:50)
[2019-09-23] MEDS: Heparin 5,000 UNITS/ML VIAL SC SCH ×3 (08:50→20:56)
[2019-09-23] MEDS ORDERED: Acetaminophen 325 MG TAB PO PRN (09:59)
--- NOTE | 2019-09-23 10:10 | PDOC.HOSPP ---
- Subjective Encounter Date: 09/23/19 Encounter Time: 10:08 Subjective: Mr. Villeda was seen today in follow-up of respiratory failure due to influenza A. He notes some pain on his " bottom". He says he just woke up with it. He denies any shortness of breath. - Objective Vital Signs & Weight: Vital Signs (12 hours) Temp Pulse Resp BP Pulse Ox 09/23/19 08:51 91 152/99 H 09/23/19 07:41 84 26 H 95 09/23/19 06:28 73 129/85 09/23/19 05:00 98.5 F 09/23/19 02:17 79 09/23/19 01:29 79 09/23/19 01:28 95 09/23/19 01:00 98.9 F 09/23/19 00:00 64 L Weight Weight 166 lb 0.129 oz Most Recent Monitor Data Heart Rate from ECG 73 NIBP 129/85 NIBP BP-Mean 99 Respiration from ECG 24 SpO2 96 I&O: 09/22/19 09/23/19 09/24/19 06:59 06:59 06:59 Intake Total 1921 1327 Output Total 0 0 Balance 1921 1327 Result Diagrams: 09/21/19 03:32 09/21/19 03:32 Additional Labs: Accuchecks 09/22/19 09/22/19 16:07 12:10 POC Glucose 97 119 H Hospitalist ROS - Medication Medications: Active Medications Generic Name Dose Route Start Last Admin Trade Name Freq PRN Reason Stop Dose Admin Albuterol/Ipratropium 3 ml 09/21/19 19:00 09/23/19 07:41 Duoneb NEB 3 ml [id number] ESME Administration Ascorbic Acid 500 mg 09/20/19 09:00 09/23/19 08:48 Vitamin C PO 500 mg DAILY ESME Administration Aspirin 81 mg 09/20/19 09:00 09/23/19 08:48 Ecotrin PO 81 mg DAILY ESME Administration Atorvastatin Calcium 40 mg 09/20/19 09:00 09/23/19 08:48 Lipitor PO 40 mg DAILY ESME Administration Dextrose/Water 25 gm 09/19/19 16:30 09/19/19 21:38 Dextrose 50% SLOW IVP 25 gm PRN PRN Administration Hypoglycemia Etravirine 200 mg 09/19/19 18:00 09/23/19 08:47 Intelence PO 200 mg BID-PC ESME Administration Fludrocortisone Acetate 0.1 mg 09/20/19 09:00 09/23/19 08:48 Florinef PO 0.1 mg DAILY ESME Administration Gabapentin 300 mg 09/19/19 21:00 09/22/19 20:08 Neurontin PO 300 mg HS ESME Administration Heparin Sodium (Porcine) 5,000 units 09/19/19 09:00 09/23/19 08:50 Heparin SC 5,000 units TID ESME Administration Dextrose/Water 1,000 mls @ 50 mls/hr 09/19/19 17:45 09/23/19 02:17 Dextrose 10% In Water IV 1,000 mls .Q20H ESME Administration Meropenem 500 mg/ Sodium 100 mls @ 200 mls/hr 09/20/19 18:00 09/22/19 17:22 Chloride IVPB 100 mls Q24H ESME Administration Micafungin Sodium 100 mg/ 100 mls @ 100 mls/hr 09/20/19 12:00 09/22/19 12:03 Sodium Chloride IVPB 100 mls 1200 ESME Administration Labetalol HCl 10 mg 09/19/19 21:00 09/23/19 08:51 Normodyne SLOW IVP Not Given Q4HR ESME Lidocaine 1 patch 09/19/19 12:00 09/22/19 12:03 Lidoderm 5% Patch TD 1 patch Q24H ESME Administration Melatonin 9 mg 09/19/19 21:00 09/22/19 20:58 Melatonin PO 9 mg HS ESME Administration Methylprednisolone Sodium Succinate 40 mg 09/21/19 09:00 09/23/19 08:49 Solu-Medrol IVP 40 mg Q12HR ESME Administration Miscellaneous Medication 1 each 09/19/19 23:59 09/23/19 00:20 Lidocaine Patch Removal TOP 1 each 6889 ESME Administration Nortriptyline HCl 25 mg 09/19/19 21:00 09/22/19 20:10 Pamelor PO 25 mg HS ESME Administration Oseltamivir Phosphate 30 mg 09/22/19 09:00 09/22/19 08:55 Tamiflu PO 30 mg DAILY ESME Administration Pantoprazole Sodium 40 mg 09/20/19 09:00 09/23/19 08:48 Protonix PO 40 mg DAILY ESME Administration Raltegravir 400 mg 09/19/19 21:00 09/22/19 20:11 Isentress PO 400 mg BID ESME Administration Sevelamer Carbonate 800 mg 09/19/19 12:00 09/23/19 08:48 Renvela PO 800 mg TID-WM ESME Administration Sterile Water 1 ml 09/20/19 22:34 09/23/19 08:49 Bacteriostatic Water FS 1 ml PRN PRN Administration RECONSTITUTION Zidovudine 100 mg 09/19/19 14:00 09/23/19 06:28 Retrovir PO 100 mg Q8HR ESME Administration - Exam Eye: PERRL Heart: RRR, no murmur, no gallops, no rubs, normal peripheral pulses Respiratory: CTAB (+ coarse breath sounds, no wheezing or rhonchi) Gastrointestinal: soft, non-tender, non-distended, normal bowel sounds, no palpable masses, no hepatomegaly Extremities: 1+ LE edema (1-2+ pitting edema in the right leg, and upper extremities) Hosp A/P (1) Acute respiratory failure Code(s): J96.00 - ACUTE RESPIRATORY FAILURE, UNSP W HYPOXIA OR HYPERCAPNIA Status: Acute (2) Fever Code(s): R50.9 - FEVER, UNSPECIFIED Status: Acute (3) ESRD (end stage renal disease) on dialysis Code(s): N18.6 - END STAGE RENAL DISEASE; Z99.2 - DEPENDENCE ON RENAL DIALYSIS Status: Chronic (4) Esophageal cancer Status: Chronic Qualifiers: Malignant neoplasm of esophagus location: unspecified location Qualified Code(s): C15.9 - Malignant neoplasm of esophagus, unspecified (5) HIV (human immunodeficiency virus infection) Code(s): B20 - HUMAN IMMUNODEFICIENCY VIRUS [HIV] DISEASE Status: Chronic Qualifiers: HIV symptom status: unspecified Qualified Code(s): B20 - Human immunodeficiency virus [HIV] disease (6) HTN (hypertension) Code(s): I10 - ESSENTIAL (PRIMARY) HYPERTENSION Status: Chronic Qualifiers: Hypertension type: essential hypertension Qualified Code(s): I10 - Essential (primary) hypertension - Plan * Acute Respiratory failure- This is due to pneumonia from influenza- Continue Tamiflu and supportive care * Continue Rocephin and Vancomycin * Check routine las * ESRD- continue Dialysis as per Nephrology * HTN- blood pressure is stable * HIV- continue HAART * Stage 2 decubitus ulcer- continue local wound care and symptom management * Mobilize
[2019-09-23 10:34] LABS: Anion Gap 19 mmol/L (10-20); BUN (Urea Nitrogen) 54 mg/dL (8.4-25.7); Calc. Creatinine Clearance 23 mL/min (70-130); Calcium 8.1 mg/dL (7.8-10.44); Carbon Dioxide 22 mmol/L (23-31); Chloride 91 mmol/L (98-107); Estimated GFR-MDRD 22; Glucose 153 mg/dL (80-115); Potassium 4.9 mmol/L (3.5-5.1); Sodium 127 mmol/L (136-145)
[2019-09-23 11:16] LABS: #Lymphocytes 0.8 thou/uL (1.20-3.40); #Monocytes 0.4 thou/uL (0.11-0.59); #Neutrophils 3.1 thou/uL (1.40-6.50); %Basophils 0.2 % (0.0-1.0); %Eosinophils 0.1 % (0.0-10.0); %Lymphocytes 18.2 % (21.0-51.0); %Monocytes 8.7 % (0.0-10.0); %Neutrophils 72.9 % (42.0-75.0); Hemoglobin 12.2 g/dL (14.0-18.0); MDiff Complete? YES; Macrocytosis SLIGHT = 6-15 cells (100X) (0-5/hpf); Mean Corpuscular HGB CONC 33.1 g/dL (32.0-36.0); Mean Corpuscular Hemoglobin 35.9 pg (27.0-31.0); Mean Platelet Volume 10.8 fL (7.4-10.4); Platelet Count 117 thou/uL (130-400); Platelet Morphology Comment Appears Decreased; Polychromasia SLIGHT = 2-3 cells (100X) (0-2/hpf); RBC Distribution Width 20.4 % (11.5-14.5); Schistocytes SLIGHT = 2-5 cells (100X) (0-1/hpf); White Blood Cell (WBC) Count 4.3 thou/uL (4.8-10.8)
[2019-09-23] MEDS: Oseltamivir 6 MG/ML ORAL SUSP PO SCH (11:44)
[2019-09-23] MEDS: Lidocaine 5% Patch TD SCH (11:58)
[2019-09-23] MEDS: Raltegravir Potassium 400 MG TAB PO SCH ×2 (11:58→20:52)
[2019-09-23] MEDS: Micafungin 100 MG in Sodium Chloride 0.9% 100 ML IVPB SCH (11:59)
[2019-09-23] MEDS: HYDROcodone/Acetaminophen 5/325 mg Tablet PO PRN ×2 (12:21→18:47)
[2019-09-23] MEDS: Meropenem 500 MG in Sodium Chloride 0.9% 100 ML IVPB SCH (17:17)
--- NOTE | 2019-09-23 17:59 | PRG ---
DATE OF SERVICE: 09/23/2019 SUBJECTIVE: The patient has experienced improvement in his respiratory symptoms, very little coughing spells. No abdominal pain. His temperature has normalized for the past 2 days. OBJECTIVE: LUNGS: With somewhat coarse breath sounds. CARDIAC: S1 and S2, regular rate. ABDOMEN: Soft and not distended. EXTREMITIES: Moves extremities equally. LABORATORY DATA: HIV RNA PCR less than 20, CD4 is 95. White cell count 4.3, hemoglobin 12, platelets 117. Creatinine 3.43. Microbiology with negative blood cultures. ASSESSMENT AND DISCUSSION: Longstanding human immunodeficiency virus infection, well controlled viral load, but subnormal CD4 cell count. End-stage renal disease secondary to type 2 diabetes, on hemodialysis through AV fistula. Influenza A with respiratory complications including early pneumonitis. Oseltamivir will be continued for the duration previously described, antimicrobial therapy can be discontinued at this point in time. Job ID: [id number]
--- NOTE | 2019-09-23 18:23 | PRG ---
DATE OF SERVICE: 09/23/2019 SUBJECTIVE: The patient is seen and examined with no new complaint noted with the following vital signs. OBJECTIVE: VITAL SIGNS: Blood pressure 148/94, pulse of 89. HEENT: Unremarkable. CARDIOVASCULAR SYSTEM: First and second heart sounds were heard. RESPIRATORY SYSTEMS: Clear to auscultation. DIGESTIVE SYSTEM: Revealed a benign abdomen with positive bowel sounds. EXTREMITIES: No peripheral edema. SKIN: No new gross rash. LYMPHATICS: No peripheral lymphadenopathy. IMPRESSION: 1. End-stage renal disease, on hemodialysis. 2. Sepsis. 3. Hypoglycemia, on 10% dextrose infusion. PLAN: 1. There is no emergent indication for renal replacement therapy (hemodialysis today). 2. The patient to be dialyzed tomorrow in accordance with the scheduled Monday, , and Monday. 3. Further management to be dependent on the clinical course. Job ID: [id number]
--- NOTE | 2019-09-23 20:34 | PRG ---
DATE OF SERVICE: 09/23/2019 SUBJECTIVE: Brant Villeda still intermittently on BiPAP. OBJECTIVE: VITAL SIGNS: Respiratory rate in the 20s, heart rate in 80s, blood pressure is 161/102. LUNGS: Clear. HEART: Regular rhythm. ABDOMEN: Soft. IMPRESSION: 1. Recurrent episodes of dyspnea of unclear etiology? Aspiration mediated. 2. Esophageal cancer, previously on hospice. 3. Underlying reactive airway/chronic obstructive pulmonary disease. PLAN: Overall, he is clinically stable, but not making progress to a point where he could be discharged home. In my opinion, he could go to the intermediate care unit. Job ID: [id number]
[2019-09-23] MEDS: Gabapentin 300 MG CAP PO SCH (20:50)
[2019-09-23] MEDS: Nortriptyline HCl 25 MG CAP PO SCH (20:50)
[2019-09-23] MEDS: Melatonin 3 MG TAB PO SCH (21:01)
[2019-09-24] MEDS: Dextrose 10% in Water 1,000 ML IV SCH ×2 (00:19→21:40)
[2019-09-24] MEDS: Lidocaine Patch Removal 1 EACH TOP SCH (00:22)
[2019-09-24] MEDS: Labetalol HCl 100 MG/20 ML VIAL SLOW IVP SCH ×6 (00:29→22:18)
[2019-09-24] MEDS: HYDROcodone/Acetaminophen 5/325 mg Tablet PO PRN ×3 (06:36→19:08)
--- NOTE | 2019-09-24 10:39 | PDOC.HOSPP ---
- Subjective Encounter Date: 09/24/19 Encounter Time: 10:38 Subjective: Mr. Villeda was seen today in follow-up of respiratory failure. He is currently on BiPAP. He says he noted some dyspnea. - Objective Vital Signs & Weight: Vital Signs (12 hours) Temp Pulse Resp Pulse Ox 09/24/19 08:30 83 09/24/19 08:01 97.9 F 09/24/19 08:00 93 L 09/24/19 07:54 83 27 H 93 L 09/24/19 04:00 97.7 F 09/23/19 23:38 72 09/23/19 23:26 97.3 F L Weight Weight 167 lb 11.2 oz Most Recent Monitor Data Heart Rate from ECG 82 NIBP 106/75 NIBP BP-Mean 85 Respiration from ECG 22 SpO2 89 I&O: 09/23/19 09/24/19 09/25/19 06:59 06:59 06:59 Intake Total 1327 2275 Output Total 0 0 Balance 1327 2275 Result Diagrams: 09/23/19 09:40 09/23/19 09:40 Additional Labs: Accuchecks 09/24/19 09/24/19 09/24/19 08:55 03:59 00:04 POC Glucose 100 84 107 09/23/19 09/23/19 09/23/19 20:52 17:13 09:46 POC Glucose 96 136 H 186 H 09/23/19 09/23/19 09/22/19 06:19 02:14 20:49 POC Glucose 128 H 108 129 H Hospitalist ROS - Medication Medications: Active Medications Generic Name Dose Route Start Last Admin Trade Name Freq PRN Reason Stop Dose Admin Hydrocodone Bitart/Acetaminophen 1 tab 09/23/19 09:59 09/24/19 06:36 [place] 5/325 PO 1 tab Q4H PRN Administration Moderate Pain (4-6) Albuterol/Ipratropium 3 ml 09/21/19 19:00 09/24/19 07:54 Duoneb NEB 3 ml [id number] ESME Administration Ascorbic Acid 500 mg 09/20/19 09:00 09/23/19 08:48 Vitamin C PO 500 mg DAILY ESME Administration Aspirin 81 mg 09/20/19 09:00 09/23/19 08:48 Ecotrin PO 81 mg DAILY ESME Administration Atorvastatin Calcium 40 mg 09/20/19 09:00 09/23/19 08:48 Lipitor PO 40 mg DAILY ESME Administration Dextrose/Water 25 gm 09/19/19 16:30 09/19/19 21:38 Dextrose 50% SLOW IVP 25 gm PRN PRN Administration Hypoglycemia Etravirine 200 mg 09/19/19 18:00 09/23/19 17:15 Intelence PO 200 mg BID-PC ESME Administration Fludrocortisone Acetate 0.1 mg 09/20/19 09:00 09/23/19 08:48 Florinef PO 0.1 mg DAILY ESME Administration Gabapentin 300 mg 09/19/19 21:00 09/23/19 20:50 Neurontin PO 300 mg HS ESME Administration Heparin Sodium (Porcine) 5,000 units 09/19/19 09:00 09/23/19 20:56 Heparin SC 5,000 units TID ESME Administration Dextrose/Water 1,000 mls @ 50 mls/hr 09/19/19 17:45 09/24/19 00:19 Dextrose 10% In Water IV 1,000 mls .Q20H ESEM Administration Meropenem 500 mg/ Sodium 100 mls @ 200 mls/hr 09/20/19 18:00 09/23/19 17:17 Chloride IVPB Not Given Q24H ESME Micafungin Sodium 100 mg/ 100 mls @ 100 mls/hr 09/20/19 12:00 09/23/19 11:59 Sodium Chloride IVPB 100 mls 1200 ESME Administration Labetalol HCl 10 mg 09/19/19 21:00 09/24/19 08:30 Normodyne SLOW IVP Not Given Q4HR ESME Lidocaine 1 patch 09/19/19 12:00 09/23/19 11:58 Lidoderm 5% Patch TD 1 patch Q24H ESME Administration Melatonin 9 mg 09/19/19 21:00 09/23/19 21:01 Melatonin PO 9 mg HS ESME Administration Methylprednisolone Sodium Succinate 40 mg 09/21/19 09:00 09/23/19 20:50 Solu-Medrol IVP 40 mg Q12HR ESME Administration Miscellaneous Medication 1 each 09/19/19 23:59 09/24/19 00:22 Lidocaine Patch Removal TOP 1 each 2359 ESME Administration Nortriptyline HCl 25 mg 09/19/19 21:00 09/23/19 20:50 Pamelor PO 25 mg HS ESME Administration Oseltamivir Phosphate 30 mg 09/22/19 09:00 09/23/19 11:44 Tamiflu PO Not Given DAILY ESME Pantoprazole Sodium 40 mg 09/20/19 09:00 09/23/19 08:48 Protonix PO 40 mg DAILY ESME Administration Raltegravir 400 mg 09/19/19 21:00 09/23/19 20:52 Isentress PO 400 mg BID ESME Administration Sevelamer Carbonate 800 mg 09/19/19 12:00 09/23/19 17:15 Renvela PO 800 mg TID-WM ESME Administration Sterile Water 1 ml 09/20/19 22:34 09/23/19 20:50 Bacteriostatic Water FS 1 ml PRN PRN Administration RECONSTITUTION Zidovudine 100 mg 09/19/19 14:00 09/24/19 06:36 Retrovir PO 100 mg Q8HR ESME Administration - Exam Eye: PERRL Neck: supple Heart: RRR, no murmur, no gallops, no rubs, normal peripheral pulses Respiratory: CTAB, no wheezes, no rales, no ronchi, normal chest expansion Gastrointestinal: soft, non-tender, non-distended, normal bowel sounds, no palpable masses, no hepatomegaly Extremities: 1+ LE edema Hosp A/P (1) Acute respiratory failure Code(s): J96.00 - ACUTE RESPIRATORY FAILURE, UNSP W HYPOXIA OR HYPERCAPNIA Status: Acute (2) Fever Code(s): R50.9 - FEVER, UNSPECIFIED Status: Acute (3) ESRD (end stage renal disease) on dialysis Code(s): N18.6 - END STAGE RENAL DISEASE; Z99.2 - DEPENDENCE ON RENAL DIALYSIS Status: Chronic (4) Esophageal cancer Status: Chronic Qualifiers: Malignant neoplasm of esophagus location: unspecified location Qualified Code(s): C15.9 - Malignant neoplasm of esophagus, unspecified (5) HIV (human immunodeficiency virus infection) Code(s): B20 - HUMAN IMMUNODEFICIENCY VIRUS [HIV] DISEASE Status: Chronic Qualifiers: HIV symptom status: unspecified Qualified Code(s): B20 - Human immunodeficiency virus [HIV] disease (6) HTN (hypertension) Code(s): I10 - ESSENTIAL (PRIMARY) HYPERTENSION Status: Chronic Qualifiers: Hypertension type: essential hypertension Qualified Code(s): I10 - Essential (primary) hypertension - Plan * Acute Respiratory failure- This is due to pneumonia from influenza A- Continue Tamiflu * Antibiotics have been discontinued by Dr. Morris * ESRD- continue Dialysis as per Nephrology- he may be a bit volume overloaded * HTN- blood pressure is stable * HIV- continue HAART * Stage 2 decubitus ulcer- continue local wound care and symptom management * Mobilize
[2019-09-24 13:10] LABS: HIV-1 Quantitative, RNA PCR <20 copies/mL (.)
[2019-09-24] MEDS: Heparin 5,000 UNITS/ML VIAL SC SCH ×3 (13:13→21:41)
[2019-09-24] MEDS: Sevelamer Carbonate 800 MG TAB PO SCH ×3 (13:13→17:32)
[2019-09-24] MEDS: Micafungin 100 MG in Sodium Chloride 0.9% 100 ML IVPB SCH (13:35)
[2019-09-24] MEDS: Lidocaine 5% Patch TD SCH (13:35)
[2019-09-24] MEDS: Fludrocortisone Acetate 0.1 MG TAB PO SCH (13:35)
[2019-09-24] MEDS: Raltegravir Potassium 400 MG TAB PO SCH ×2 (13:36→21:42)
[2019-09-24] MEDS: Aspirin 81 mg Enteric Coated Tablet PO SCH (13:36)
[2019-09-24] MEDS: Atorvastatin Calcium 40 MG TAB PO SCH (13:36)
[2019-09-24] MEDS: methylPREDNISolone Sod Succ 40 MG VIAL IVP SCH ×2 (13:37→21:42)
[2019-09-24] MEDS: Ascorbic Acid 500 mg Chewable Tablet PO SCH (13:37)
--- NOTE | 2019-09-24 15:51 | PRG ---
DATE OF SERVICE: 09/24/2019 SUBJECTIVE: Brant Villeda is clinically unchanged. He is still on and off BiPAP. He is still full code. OBJECTIVE: VITAL SIGNS: Blood pressure 149/87, respiratory rate 20s. LUNGS: Unchanged. HEART: Unchanged. ABDOMEN: Unchanged. LABORATORY DATA: No new lab. IMPRESSION: 1. End-stage renal disease. 2. Intermittent respiratory distress, unclear etiology. I am wondering if he is getting bronchospastic from aspiration. 3. History of esophageal cancer. 4. Human immunodeficiency virus positive. 5. History of hypertension. 6. He has not really had pulmonary edema with any of these episodes. We will continue to follow. Job ID: [id number]
[2019-09-24] MEDS: Oseltamivir 6 MG/ML ORAL SUSP PO SCH (17:32)
[2019-09-24] MEDS: Meropenem 500 MG in Sodium Chloride 0.9% 100 ML IVPB SCH (17:37)
[2019-09-24] MEDS: Gabapentin 300 MG CAP PO SCH (21:40)
[2019-09-24] MEDS: Melatonin 3 MG TAB PO SCH (21:41)
[2019-09-24] MEDS: Nortriptyline HCl 25 MG CAP PO SCH (21:43)
[2019-09-25] MEDS: Labetalol HCl 100 MG/20 ML VIAL SLOW IVP SCH ×6 (01:32→21:11)
[2019-09-25] MEDS: Lidocaine Patch Removal 1 EACH TOP SCH (01:32)
[2019-09-25] MEDS: HYDROcodone/Acetaminophen 5/325 mg Tablet PO PRN ×4 (01:40→21:15)
--- NOTE | 2019-09-25 11:38 | PDOC.HOSPP ---
- Subjective Encounter Date: 09/25/19 Encounter Time: 11:37 Subjective: Mr. Villeda was seen today in follow-up of respiratory failure. He is beginning to be more talkative, and is asking to take the BiPAP off. No new complaints. - Objective Vital Signs & Weight: Vital Signs (12 hours) Temp Pulse Resp Pulse Ox 09/25/19 11:36 97.5 F L 09/25/19 09:11 75 09/25/19 07:37 75 09/25/19 07:35 76 21 H 100 09/25/19 07:10 96.2 F L 09/25/19 05:53 89 09/25/19 01:32 89 09/25/19 00:45 89 26 H 90 L 09/25/19 00:00 97.2 F L 94 L Weight Weight 165 lb 5.011 oz Most Recent Monitor Data Heart Rate from ECG 74 NIBP 128/79 NIBP BP-Mean 95 Respiration from ECG 20 SpO2 99 I&O: 09/24/19 09/25/19 09/26/19 06:59 06:59 06:59 Intake Total 2275 2489 Output Total 0 3500 Balance 2275 -1011 Result Diagrams: 09/23/19 09:40 09/23/19 09:40 Additional Labs: Accuchecks 09/25/19 09/25/19 09/24/19 08:19 03:47 23:56 POC Glucose 98 139 H 146 H 09/24/19 09/24/19 09/24/19 21:53 16:10 11:51 POC Glucose 87 114 H 76 Hospitalist ROS - Medication Medications: Active Medications Generic Name Dose Route Start Last Admin Trade Name Freq PRN Reason Stop Dose Admin Hydrocodone Bitart/Acetaminophen 1 tab 09/23/19 09:59 09/25/19 10:32 [place] 5/325 PO 1 tab Q4H PRN Administration Moderate Pain (4-6) Albuterol/Ipratropium 3 ml 09/21/19 19:00 09/25/19 07:35 Duoneb NEB 3 ml [id number] ESME Administration Ascorbic Acid 500 mg 09/20/19 09:00 09/24/19 13:37 Vitamin C PO 500 mg DAILY ESME Administration Aspirin 81 mg 09/20/19 09:00 09/24/19 13:36 Ecotrin PO 81 mg DAILY ESME Administration Atorvastatin Calcium 40 mg 09/20/19 09:00 09/24/19 13:36 Lipitor PO 40 mg DAILY ESME Administration Dextrose/Water 25 gm 09/19/19 16:30 09/19/19 21:38 Dextrose 50% SLOW IVP 25 gm PRN PRN Administration Hypoglycemia Etravirine 200 mg 09/19/19 18:00 09/24/19 17:37 Intelence PO 200 mg BID-PC ESME Administration Fludrocortisone Acetate 0.1 mg 09/20/19 09:00 09/24/19 13:35 Florinef PO 0.1 mg DAILY ESME Administration Gabapentin 300 mg 09/19/19 21:00 09/24/19 21:40 Neurontin PO 300 mg HS ESME Administration Heparin Sodium (Porcine) 5,000 units 09/19/19 09:00 09/24/19 21:41 Heparin SC 5,000 units TID ESME Administration Dextrose/Water 1,000 mls @ 50 mls/hr 09/19/19 17:45 09/24/19 21:40 Dextrose 10% In Water IV 1,000 mls .Q20H ESME Administration Meropenem 500 mg/ Sodium 100 mls @ 200 mls/hr 09/20/19 18:00 09/24/19 17:37 Chloride IVPB 100 mls Q24H ESME Administration Micafungin Sodium 100 mg/ 100 mls @ 100 mls/hr 09/20/19 12:00 09/24/19 13:35 Sodium Chloride IVPB 100 mls 1200 ESME Administration Labetalol HCl 10 mg 09/19/19 21:00 09/25/19 09:11 Normodyne SLOW IVP Not Given Q4HR ESME Lidocaine 1 patch 09/19/19 12:00 09/24/19 13:35 Lidoderm 5% Patch TD 1 patch Q24H ESME Administration Melatonin 9 mg 09/19/19 21:00 09/24/19 21:41 Melatonin PO 9 mg HS ESME Administration Methylprednisolone Sodium Succinate 40 mg 09/21/19 09:00 09/24/19 21:42 Solu-Medrol IVP 40 mg Q12HR ESME Administration Miscellaneous Medication 1 each 09/19/19 23:59 09/25/19 01:32 Lidocaine Patch Removal TOP 1 each 2358 ESME Administration Nortriptyline HCl 25 mg 09/19/19 21:00 09/24/19 21:43 Pamelor PO 25 mg HS ESME Administration Oseltamivir Phosphate 30 mg 09/22/19 09:00 09/24/19 17:32 Tamiflu PO 30 mg DAILY ESME Administration Pantoprazole Sodium 40 mg 09/20/19 09:00 09/24/19 13:36 Protonix PO 40 mg DAILY ESME Administration Raltegravir 400 mg 09/19/19 21:00 09/24/19 21:42 Isentress PO 400 mg BID ESME Administration Sevelamer Carbonate 800 mg 09/19/19 12:00 09/24/19 17:32 Renvela PO 800 mg TID-WM ESME Administration Sterile Water 1 ml 09/20/19 22:34 09/23/19 20:50 Bacteriostatic Water FS 1 ml PRN PRN Administration RECONSTITUTION Zidovudine 100 mg 09/19/19 14:00 09/25/19 06:13 Retrovir PO 100 mg Q8HR ESME Administration - Exam Eye: PERRL Heart: RRR, no murmur, no gallops, no rubs, normal peripheral pulses Respiratory: no wheezes, no rales, no ronchi, normal chest expansion Gastrointestinal: soft, non-tender, non-distended, normal bowel sounds Extremities: 1+ LE edema Hosp A/P (1) Acute respiratory failure Code(s): J96.00 - ACUTE RESPIRATORY FAILURE, UNSP W HYPOXIA OR HYPERCAPNIA Status: Acute (2) Fever Code(s): R50.9 - FEVER, UNSPECIFIED Status: Acute (3) ESRD (end stage renal disease) on dialysis Code(s): N18.6 - END STAGE RENAL DISEASE; Z99.2 - DEPENDENCE ON RENAL DIALYSIS Status: Chronic (4) Esophageal cancer Status: Chronic Qualifiers: Malignant neoplasm of esophagus location: unspecified location Qualified Code(s): C15.9 - Malignant neoplasm of esophagus, unspecified (5) HIV (human immunodeficiency virus infection) Code(s): B20 - HUMAN IMMUNODEFICIENCY VIRUS [HIV] DISEASE Status: Chronic Qualifiers: HIV symptom status: unspecified Qualified Code(s): B20 - Human immunodeficiency virus [HIV] disease (6) HTN (hypertension) Code(s): I10 - ESSENTIAL (PRIMARY) HYPERTENSION Status: Chronic Qualifiers: Hypertension type: essential hypertension Qualified Code(s): I10 - Essential (primary) hypertension - Plan * Acute Respiratory failure- This is due to pneumonia from influenza A- Continue Tamiflu * Additional fluid is being removed with dialysis * ESRD- dialysis as per Nephrology * HTN- blood pressure is stable * HIV- continue HAART * Stage 2 decubitus ulcer- continue local wound care and symptom management * Mobilize * ? back to [place] soon?
[2019-09-25] MEDS: Sevelamer Carbonate 800 MG TAB PO SCH ×3 (12:48→17:05)
[2019-09-25] MEDS: Heparin 5,000 UNITS/ML VIAL SC SCH ×3 (12:49→21:10)
[2019-09-25] MEDS: Raltegravir Potassium 400 MG TAB PO SCH ×2 (12:52→21:11)
[2019-09-25] MEDS: Ascorbic Acid 500 mg Chewable Tablet PO SCH (12:53)
[2019-09-25] MEDS: Aspirin 81 mg Enteric Coated Tablet PO SCH (12:54)
[2019-09-25] MEDS: Atorvastatin Calcium 40 MG TAB PO SCH (12:54)
[2019-09-25] MEDS: methylPREDNISolone Sod Succ 40 MG VIAL IVP SCH ×2 (12:57→21:10)
[2019-09-25] MEDS: Fludrocortisone Acetate 0.1 MG TAB PO SCH (12:57)
[2019-09-25] MEDS: Oseltamivir 6 MG/ML ORAL SUSP PO SCH (13:01)
[2019-09-25] MEDS: Micafungin 100 MG in Sodium Chloride 0.9% 100 ML IVPB SCH (13:19)
[2019-09-25] MEDS: Lidocaine 5% Patch TD SCH (13:19)
[2019-09-25] MEDS: Meropenem 500 MG in Sodium Chloride 0.9% 100 ML IVPB SCH ×2 (17:05→21:01)
--- NOTE | 2019-09-25 17:13 | PRG ---
DATE OF SERVICE: 09/25/2019 SUBJECTIVE: The patient noted with the following vital signs. OBJECTIVE: VITAL SIGNS: Afebrile. Temperature 98.5, blood pressure 141/80, pulse 86, O2 saturation of 97%. HEENT: Unremarkable. CARDIOVASCULAR: First and second heart sounds were heard. RESPIRATORY SYSTEMS: Clear to auscultation. DIGESTIVE SYSTEM: Revealed a benign abdomen. EXTREMITIES: No peripheral edema. SKIN: No new gross rash. IMPRESSION: 1. End-stage renal disease. 2. Hypervolemia. 3. Sepsis, much improved. 4. Respiratory failure, improving. PLAN: 1. The patient to receive extra dialysis treatment today, but emphasis will be only on ultrafiltration for about 3 hours. 2. Further management dependent on the clinical course. Job ID: [id number]
[2019-09-25] MEDS: Dextrose 10% in Water 1,000 ML IV SCH (19:41)
[2019-09-25] MEDS: Melatonin 3 MG TAB PO SCH (21:09)
[2019-09-25] MEDS: Nortriptyline HCl 25 MG CAP PO SCH (21:10)
[2019-09-25] MEDS: Gabapentin 300 MG CAP PO SCH (21:10)
[2019-09-26] MEDS: Lidocaine Patch Removal 1 EACH TOP SCH ×2 (00:48→22:54)
[2019-09-26] MEDS: Labetalol HCl 100 MG/20 ML VIAL SLOW IVP SCH ×6 (01:45→21:26)
[2019-09-26] MEDS: Dextrose 10% in Water 1,000 ML IV SCH ×2 (02:11→21:29)
[2019-09-26] MEDS: HYDROcodone/Acetaminophen 5/325 mg Tablet PO PRN ×4 (06:22→21:17)
[2019-09-26 08:11] LABS: Fungus Stain Final report (.); Fungus Stain Result 1 Yeast observed (.)
--- NOTE | 2019-09-26 09:57 | PDOC.HOSPP ---
- Subjective Encounter Date: 09/26/19 Encounter Time: 09:55 Subjective: Mr. Villeda was seen today in follow-up of respiratory failure. He is looking better. He is breathing better, and syas his appetite is better. - Objective Vital Signs & Weight: Vital Signs (12 hours) Temp Pulse Resp Pulse Ox 09/26/19 07:34 96 09/26/19 07:15 99.2 F 09/26/19 06:21 75 22 H 100 09/26/19 05:32 88 09/26/19 03:19 97.4 F L 09/26/19 01:45 88 09/26/19 00:00 99 09/25/19 23:51 97.8 F 09/25/19 23:33 88 28 H 93 L Weight Weight 143 lb 8.335 oz Most Recent Monitor Data Heart Rate from ECG 91 NIBP 164/99 NIBP BP-Mean 120 Respiration from ECG 25 SpO2 95 I&O: 09/25/19 09/26/19 09/27/19 06:59 06:59 06:59 Intake Total 2489 2447 Output Total 3500 3700 Balance -1011 -5517 Result Diagrams: 09/23/19 09:40 09/23/19 09:40 Additional Labs: Accuchecks 09/26/19 09/26/19 09/25/19 04:11 00:09 20:12 POC Glucose 105 117 H 124 H 09/25/19 09/25/19 09/25/19 17:17 15:17 12:18 POC Glucose 123 H 128 H 51 L* Hospitalist ROS - Medication Medications: Active Medications Generic Name Dose Route Start Last Admin Trade Name Freq PRN Reason Stop Dose Admin Hydrocodone Bitart/Acetaminophen 1 tab 09/23/19 09:59 09/26/19 06:22 [place] 5/325 PO 1 tab Q4H PRN Administration Moderate Pain (4-6) Albuterol/Ipratropium 3 ml 09/21/19 19:00 09/26/19 06:21 Duoneb NEB 3 ml [id number] ESME Administration Ascorbic Acid 500 mg 09/20/19 09:00 09/25/19 12:53 Vitamin C PO 500 mg DAILY ESME Administration Aspirin 81 mg 09/20/19 09:00 09/25/19 12:54 Ecotrin PO 81 mg DAILY ESME Administration Atorvastatin Calcium 40 mg 09/20/19 09:00 09/25/19 12:54 Lipitor PO 40 mg DAILY ESME Administration Dextrose/Water 25 gm 09/19/19 16:30 09/19/19 21:38 Dextrose 50% SLOW IVP 25 gm PRN PRN Administration Hypoglycemia Etravirine 200 mg 09/19/19 18:00 09/25/19 17:03 Intelence PO 200 mg BID-PC ESME Administration Fludrocortisone Acetate 0.1 mg 09/20/19 09:00 09/25/19 12:57 Florinef PO 0.1 mg DAILY ESME Administration Gabapentin 300 mg 09/19/19 21:00 09/25/19 21:10 Neurontin PO 300 mg HS ESME Administration Heparin Sodium (Porcine) 5,000 units 09/19/19 09:00 09/25/19 21:10 Heparin SC 5,000 units TID ESME Administration Dextrose/Water 1,000 mls @ 50 mls/hr 09/19/19 17:45 09/26/19 02:11 Dextrose 10% In Water IV 1,000 mls .Q20H ESME Administration Micafungin Sodium 100 mg/ 100 mls @ 100 mls/hr 09/20/19 12:00 09/25/19 13:19 Sodium Chloride IVPB 100 mls 1200 ESME Administration Labetalol HCl 10 mg 09/19/19 21:00 09/26/19 05:32 Normodyne SLOW IVP Not Given Q4HR ESME Lidocaine 1 patch 09/19/19 12:00 09/25/19 13:19 Lidoderm 5% Patch TD 1 patch Q24H ESME Administration Melatonin 9 mg 09/19/19 21:00 09/25/19 21:09 Melatonin PO 9 mg HS ESME Administration Miscellaneous Medication 1 each 09/19/19 23:59 09/26/19 00:48 Lidocaine Patch Removal TOP Not Given 2359 ESME Nortriptyline HCl 25 mg 09/19/19 21:00 09/25/19 21:10 Pamelor PO 25 mg HS ESME Administration Oseltamivir Phosphate 30 mg 09/22/19 09:00 09/25/19 13:01 Tamiflu PO 30 mg DAILY ESME Administration Pantoprazole Sodium 40 mg 09/20/19 09:00 09/25/19 12:55 Protonix PO 40 mg DAILY ESME Administration Raltegravir 400 mg 09/19/19 21:00 09/25/19 21:11 Isentress PO 400 mg BID ESME Administration Sevelamer Carbonate 800 mg 09/19/19 12:00 09/25/19 17:05 Renvela PO 800 mg TID-WM ESME Administration Sterile Water 1 ml 09/20/19 22:34 09/23/19 20:50 Bacteriostatic Water FS 1 ml PRN PRN Administration RECONSTITUTION Zidovudine 100 mg 09/19/19 14:00 09/26/19 06:22 Retrovir PO 100 mg Q8HR ESME Administration - Exam Eye: PERRL Heart: RRR, no murmur, no gallops, no rubs, normal peripheral pulses Respiratory: CTAB (+ rhonchi bilaterally), no ronchi, rales Gastrointestinal: soft, non-tender, non-distended, normal bowel sounds, no palpable masses, no hepatomegaly Extremities: no cyanosis, no edema Hosp A/P (1) Acute respiratory failure Code(s): J96.00 - ACUTE RESPIRATORY FAILURE, UNSP W HYPOXIA OR HYPERCAPNIA Status: Acute (2) Fever Code(s): R50.9 - FEVER, UNSPECIFIED Status: Acute (3) ESRD (end stage renal disease) on dialysis Code(s): N18.6 - END STAGE RENAL DISEASE; Z99.2 - DEPENDENCE ON RENAL DIALYSIS Status: Chronic (4) Esophageal cancer Status: Chronic Qualifiers: Malignant neoplasm of esophagus location: unspecified location Qualified Code(s): C15.9 - Malignant neoplasm of esophagus, unspecified (5) HIV (human immunodeficiency virus infection) Code(s): B20 - HUMAN IMMUNODEFICIENCY VIRUS [HIV] DISEASE Status: Chronic Qualifiers: HIV symptom status: unspecified Qualified Code(s): B20 - Human immunodeficiency virus [HIV] disease (6) HTN (hypertension) Code(s): I10 - ESSENTIAL (PRIMARY) HYPERTENSION Status: Chronic Qualifiers: Hypertension type: essential hypertension Qualified Code(s): I10 - Essential (primary) hypertension - Plan * Acute Respiratory failure- improved * Treatment for Influenza will be completed tomorrow * ESRD- dialysis as per Nephrology- * HTN- blood pressure is stable * HIV- continue HAART * Stage 2 decubitus ulcer- continue local wound care and symptom management * Mobilize * Hopefully back to the [place] tomorrow
[2019-09-26] MEDS: Aspirin 81 mg Enteric Coated Tablet PO SCH (10:02)
[2019-09-26] MEDS: Oseltamivir 6 MG/ML ORAL SUSP PO SCH (10:02)
[2019-09-26] MEDS: Fludrocortisone Acetate 0.1 MG TAB PO SCH (10:03)
[2019-09-26] MEDS: Raltegravir Potassium 400 MG TAB PO SCH ×2 (10:03→21:14)
[2019-09-26] MEDS: Sevelamer Carbonate 800 MG TAB PO SCH ×3 (10:06→16:57)
[2019-09-26] MEDS: Heparin 5,000 UNITS/ML VIAL SC SCH ×3 (10:07→21:21)
[2019-09-26] MEDS: Atorvastatin Calcium 40 MG TAB PO SCH (10:07)
[2019-09-26] MEDS: Ascorbic Acid 500 mg Chewable Tablet PO SCH (10:07)
[2019-09-26] MEDS: predniSONE 20 MG TAB PO SCH (10:07)
--- NOTE | 2019-09-26 11:05 | PRG ---
DATE OF SERVICE: 09/25/2019 SUBJECTIVE: Brant Villeda remains intermittently on BiPAP. While he was followed by the local oncologist, it appears that he is followed in the past at [facility]. I am trying to determine how advance this esophageal cancer is. OBJECTIVE: GENERAL: He is in no distress He was dialyzing when I saw him this morning. He was tolerating that well. VITAL SIGNS: Stable. LUNGS: Clear. HEART: Regular rhythm. ABDOMEN: Soft. heart rate 81, respiratory rate is in the 20s . Intake and output was negative 1011. IMPRESSION: Intermittent requirement for BiPAP for unclear etiology. In part, I am sure there is some deconditioning involved with this and there may be some obstructive lung disease or reactive airways. I do not feel that he has compromising infection. Unfortunately In looking back through notes, he has basically been in the hospital since beginning of the year. We will continue to follow. Job ID: [id number]
--- NOTE | 2019-09-26 11:16 | PRG ---
DATE OF SERVICE: 09/26/2019 SUBJECTIVE: Brant Villeda is in no distress. OBJECTIVE: VITAL SIGNS: Heart rates in the 70s, blood pressure is elevated 170/103 this morning, 161/94 earlier. Respiratory rates in the 20s. He is more appropriate today in my conversation with him. LUNGS: Clear. HEART: Regular rhythm. ABDOMEN: Soft. No new lab. I inquired as to when his last visit with his oncologist was and he cannot remember. He has primarily been treated both in [place] through the [place] and [place] here in [facility]. He could not recall his last checkup with regard to his esophageal cancer nor could he recall what he had been told the last time he was seen. I would still wonder if he had been intermittently aspirating and getting bronchospastic leading to his requirements for BiPAP. We will continue to follow the other physicians. Job ID: [id number]
--- NOTE | 2019-09-26 15:41 | PRG ---
DATE OF SERVICE: 09/26/2019 SUBJECTIVE: The patient is seen and examined. Noted with the following vital signs. OBJECTIVE: VITAL SIGNS: Blood pressure 150/82, pulse 77, respiratory rate of 20, and O2 saturation 96%. HEENT: Unremarkable. CARDIOVASCULAR SYSTEM: First and second heart sounds were heard. RESPIRATORY SYSTEM: Clear to auscultation. EXTREMITIES: No peripheral edema. SKIN: No new gross rash. LYMPHATICS: No peripheral lymphadenopathy. PLAN: 1. The patient to be dialyzed today. 2. The patient to be discharged when clinically stable. Job ID: [id number]
[2019-09-26 15:52] LABS: Anion Gap 20 mmol/L (10-20); BUN (Urea Nitrogen) 67 mg/dL (8.4-25.7); Calc. Creatinine Clearance 18 mL/min (70-130); Calcium 7.6 mg/dL (7.8-10.44); Carbon Dioxide 22 mmol/L (23-31); Chloride 92 mmol/L (98-107); Estimated GFR-MDRD 19; Glucose 106 mg/dL (80-115); Potassium 5.5 mmol/L (3.5-5.1); Sodium 128 mmol/L (136-145)
[2019-09-26] MEDS: Lidocaine 5% Patch TD SCH (17:37)
[2019-09-26] MEDS: Micafungin 100 MG in Sodium Chloride 0.9% 100 ML IVPB SCH (18:15)
[2019-09-26] MEDS ORDERED: Micafungin 100 MG in Sodium Chloride 0.9% 100 ML IVPB SCH (19:00)
[2019-09-26] MEDS ORDERED: Meropenem 500 MG in Sodium Chloride 0.9% 100 ML IVPB SCH (21:00)
[2019-09-26] MEDS: Nortriptyline HCl 25 MG CAP PO SCH (21:14)
[2019-09-26] MEDS: Gabapentin 300 MG CAP PO SCH (21:14)
[2019-09-26] MEDS: Melatonin 3 MG TAB PO SCH (21:14)
[2019-09-27] MEDS: HYDROcodone/Acetaminophen 5/325 mg Tablet PO PRN ×4 (01:32→17:12)
[2019-09-27] MEDS: Labetalol HCl 100 MG/20 ML VIAL SLOW IVP SCH ×4 (01:34→14:52)
[2019-09-27] MEDS: Raltegravir Potassium 400 MG TAB PO SCH (08:44)
[2019-09-27] MEDS: Sevelamer Carbonate 800 MG TAB PO SCH ×3 (08:45→17:11)
[2019-09-27] MEDS: Aspirin 81 mg Enteric Coated Tablet PO SCH (08:45)
[2019-09-27] MEDS: predniSONE 20 MG TAB PO SCH (08:45)
[2019-09-27] MEDS: Heparin 5,000 UNITS/ML VIAL SC SCH ×2 (08:46→15:51)
[2019-09-27] MEDS: Ascorbic Acid 500 mg Chewable Tablet PO SCH (08:46)
[2019-09-27] MEDS: Fludrocortisone Acetate 0.1 MG TAB PO SCH (08:46)
[2019-09-27] MEDS: Atorvastatin Calcium 40 MG TAB PO SCH (08:46)
[2019-09-27] MEDS: Oseltamivir 6 MG/ML ORAL SUSP PO SCH (08:49)
[2019-09-27] MEDS: Lidocaine 5% Patch TD SCH (12:52)
--- NOTE | 2019-09-27 15:52 | PRG ---
DATE OF SERVICE: 09/27/2019 SUBJECTIVE: The patient is sitting up in bed. He was transferred to the floor. He is feeling better, but does not like his meals. They are dry and cold. He is still having some dyspnea. No abdominal pain. No diarrhea. Coughing intermittently. No fever. OBJECTIVE: VITAL SIGNS: BP 160/90, pulse 94, respirations 24, O2 saturation 93%. LUNGS: With scattered inspiratory crackles in right and left hemithorax. No wheezing. HEART: S1 and S2. Regular rate. ABDOMEN: Soft. [id number] distended, but not tender. No ascites. LABORATORY DATA: White cell count 4.3, hemoglobin 12.2, platelets 117, 72% neutrophils. Last chemistries from yesterday with some hyponatremia, potassium slightly high. Microbiology with the findings noted before, Unchanged. ASSESSMENT AND DISCUSSION: Longstanding human immunodeficiency virus infection with excellent control of viral load, subnormal CD4 cell count response; end-stage renal disease secondary to type 2 diabetes, on hemodialysis with arteriovenous fistula; influenza A with respiratory complications including early pneumonitis. The patient is on antiretroviral therapy and still on meropenem. His last imaging was from the , and we will go ahead and repeat the chest x-ray to see where we stand, probably can discontinue meropenem at this point in time. Job ID: [id number]
--- NOTE | 2019-09-27 16:03 | PDOC.HOSPP ---
- Subjective Encounter Date: 09/27/19 Encounter Time: 16:01 Subjective: Mr. Villeda was seen in follow-up of respiratory failure. He does not have any complaints. - Objective Vital Signs & Weight: Vital Signs (12 hours) Temp Pulse Resp BP Pulse Ox 09/27/19 14:52 83 09/27/19 12:01 98.6 F 94 24 H 161/90 H 93 L 09/27/19 08:49 93 09/27/19 08:45 98.5 F 86 20 168/99 H 96 09/27/19 08:00 86 L 09/27/19 06:58 93 20 97 09/27/19 04:43 98.0 F 98 20 96 Weight Weight 143 lb 8.335 oz Most Recent Monitor Data Heart Rate from ECG 88 NIBP 72/50 NIBP BP-Mean 57 Respiration from ECG 20 SpO2 94 I&O: 09/26/19 09/27/19 09/28/19 06:59 06:59 06:59 Intake Total 2447 2600 Output Total 3700 4350 Balance -0183 -3233 Result Diagrams: 09/23/19 09:40 09/26/19 14:35 Additional Labs: Accuchecks 09/27/19 09/27/19 09/27/19 11:50 04:32 00:20 POC Glucose 87 72 104 09/26/19 09/26/19 21:26 17:00 POC Glucose 112 H 81 Hospitalist ROS - Medication Medications: Active Medications Generic Name Dose Route Start Last Admin Trade Name Freq PRN Reason Stop Dose Admin Hydrocodone Bitart/Acetaminophen 1 tab 09/23/19 09:59 09/27/19 12:51 [place] 5/325 PO 1 tab Q4H PRN Administration Moderate Pain (4-6) Albuterol/Ipratropium 3 ml 09/21/19 19:00 09/27/19 15:06 Duoneb NEB Not Given [id number] ESME Ascorbic Acid 500 mg 09/20/19 09:00 09/27/19 08:46 Vitamin C PO 500 mg DAILY ESME Administration Aspirin 81 mg 09/20/19 09:00 09/27/19 08:45 Ecotrin PO 81 mg DAILY ESME Administration Atorvastatin Calcium 40 mg 09/20/19 09:00 09/27/19 08:46 Lipitor PO 40 mg DAILY ESME Administration Dextrose/Water 25 gm 09/19/19 16:30 09/19/19 21:38 Dextrose 50% SLOW IVP 25 gm PRN PRN Administration Hypoglycemia Etravirine 200 mg 09/19/19 18:00 09/27/19 08:45 Intelence PO 200 mg BID-PC ESME Administration Fludrocortisone Acetate 0.1 mg 09/20/19 09:00 09/27/19 08:46 Florinef PO 0.1 mg DAILY ESME Administration Gabapentin 300 mg 09/19/19 21:00 09/26/19 21:14 Neurontin PO 300 mg HS ESME Administration Heparin Sodium (Porcine) 5,000 units 09/19/19 09:00 09/27/19 15:51 Heparin SC 5,000 units TID ESME Administration Dextrose/Water 1,000 mls @ 50 mls/hr 09/19/19 17:45 09/26/19 21:29 Dextrose 10% In Water IV 1,000 mls .Q20H ESME Administration Labetalol HCl 10 mg 09/19/19 21:00 09/27/19 14:52 Normodyne SLOW IVP Not Given Q4HR ESME Lidocaine 1 patch 09/19/19 12:00 09/27/19 12:52 Lidoderm 5% Patch TD 1 patch Q24H ESME Administration Melatonin 9 mg 09/19/19 21:00 09/26/19 21:14 Melatonin PO 9 mg HS ESME Administration Miscellaneous Medication 1 each 09/19/19 23:59 09/26/19 22:54 Lidocaine Patch Removal TOP Not Given [facility] Nortriptyline HCl 25 mg 09/19/19 21:00 09/26/19 21:14 Pamelor PO 25 mg HS ESME Administration Oseltamivir Phosphate 30 mg 09/22/19 09:00 09/27/19 08:49 Tamiflu PO 30 mg DAILY ESME Administration Pantoprazole Sodium 40 mg 09/20/19 09:00 09/27/19 08:46 Protonix PO 40 mg DAILY ESME Administration Prednisone 40 mg 09/26/19 08:00 09/27/19 08:45 Prednisone PO 40 mg QAM-WM ESME Administration Raltegravir 400 mg 09/19/19 21:00 09/27/19 08:44 Isentress PO 400 mg BID ESME Administration Sevelamer Carbonate 800 mg 09/19/19 12:00 09/27/19 12:52 Renvela PO 800 mg TID-WM ESME Administration Sterile Water 1 ml 09/20/19 22:34 09/23/19 20:50 Bacteriostatic Water FS 1 ml PRN PRN Administration RECONSTITUTION Zidovudine 100 mg 09/19/19 14:00 09/27/19 15:51 Retrovir PO 100 mg Q8HR ESME Administration - Exam Eye: PERRL Heart: RRR, no murmur, no gallops, no rubs, normal peripheral pulses Respiratory: CTAB, no wheezes, no rales, no ronchi, normal chest expansion, no tachypnea Gastrointestinal: soft, non-tender, non-distended, normal bowel sounds, no palpable masses Extremities: 1+ LE edema (+ left AKA) Hosp A/P (1) Acute respiratory failure Code(s): J96.00 - ACUTE RESPIRATORY FAILURE, UNSP W HYPOXIA OR HYPERCAPNIA Status: Acute (2) Fever Code(s): R50.9 - FEVER, UNSPECIFIED Status: Acute (3) ESRD (end stage renal disease) on dialysis Code(s): N18.6 - END STAGE RENAL DISEASE; Z99.2 - DEPENDENCE ON RENAL DIALYSIS Status: Chronic (4) Esophageal cancer Status: Chronic Qualifiers: Malignant neoplasm of esophagus location: unspecified location Qualified Code(s): C15.9 - Malignant neoplasm of esophagus, unspecified (5) HIV (human immunodeficiency virus infection) Code(s): B20 - HUMAN IMMUNODEFICIENCY VIRUS [HIV] DISEASE Status: Chronic Qualifiers: HIV symptom status: unspecified Qualified Code(s): B20 - Human immunodeficiency virus [HIV] disease (6) HTN (hypertension) Code(s): I10 - ESSENTIAL (PRIMARY) HYPERTENSION Status: Chronic Qualifiers: Hypertension type: essential hypertension Qualified Code(s): I10 - Essential (primary) hypertension - Plan * Acute Respiratory failure- improved * Treatment for Influenza has been completed * ESRD- dialysis as per Nephrology- * HTN- blood pressure is stable * HIV- continue HAART * Stage 2 decubitus ulcer- continue local wound care and symptom management * Mobilize * Back to the OR today
[2019-09-27 17:24] VITALS: BP 177/99; TEMP 98.3
--- NOTE | 2019-09-27 18:48 | PRG ---
DATE OF SERVICE: 09/27/2019 SUBJECTIVE: The patient noted with the following vital signs. OBJECTIVE: VITAL SIGNS: Afebrile, temperature 98.3, pulse 87, respiratory rate of 20, O2 saturation of 90%, and blood pressure of 160/99. HEENT: Unremarkable. CARDIOVASCULAR SYSTEM: First and second heart sounds were heard. RESPIRATORY SYSTEM: Clear to auscultation. DIGESTIVE SYSTEM: Revealed a benign abdomen with positive bowel sounds. EXTREMITIES: No peripheral edema. SKIN: No new gross rash. LYMPHATICS: No peripheral lymphadenopathy. IMPRESSION: 1. End-stage renal disease, on hemodialysis. 2. Sepsis in the context of flu. 3. Immunosuppressed from human immunodeficiency virus. PLAN: The patient will remain on Monday, , and Monday scheduled dialysis. The patient is discharged, will be dialyzed as an outpatient tomorrow. Job ID: [id number]
--- NOTE | 2019-09-28 01:49 | DIS ---
DATE OF ADMISSION: 09/19/2019 DATE OF DISCHARGE: 09/27/2019 DISCHARGE DISPOSITION: Back to the [facility]. DISCHARGE DIAGNOSES: 1. Acute respiratory failure with hypoxemia. 2. Influenza A infection. 3. Probable chronic aspiration. 4. HIV, on HAART therapy. 5. End-stage renal disease, on hemodialysis. 6. Hypertension. 7. Diabetes mellitus type 2. DISCHARGE MEDICATIONS: Include: 1. Prednisone 40 mg daily for 4 more days. 2. Lidoderm patch as needed. 3. Fludrocortisone 0.1 mg daily as directed. 4. Aspirin 81 mg daily. 5. Vitamin C 500 mg daily. 6. Tylenol No. 3 two tablets q.6 as needed. 7. Zidovudine 100 mg q. 8. 8. Renvela 800 mg t.i.d. 9. Raltegravir 400 mg twice daily. 10. Pravastatin 5 mg at bedtime. 11. Protonix 40 mg daily. 12. Pamelor 25 mg at bedtime. 13. Melatonin 10 mg at bedtime. 14. Apresoline 25 mg p.o. b.i.d. 15. Gabapentin 300 mg at bedtime. 16. Folic acid 1 mg daily. 17. Flonase nasal spray in each nares daily. 18. Intelence 200 mg twice a day. 19. Epogen 10,000 units injected daily. 20. Docusate 100 mg daily. 21. Vitamin B12 a 1000 mcg p.o. daily. 22. Carvedilol 3.125 mg p.o. b.i.d. 23. Calcium lactate 650 mg daily. PROCEDURES DONE DURING ADMISSION: No special procedures. CODE STATUS: Full code. ALLERGIES: TO CLINDAMYCIN, PAROXETINE, CEPHALEXIN, CIPRO, DALTEPARIN AND PORCINE. HOSPITAL COURSE: Mr. Villeda is a pleasant 64-year-old gentleman, who presented to the emergency room with acute on chronic respiratory failure due to influenza. He was having shortness of breath and cough. He was admitted initially to the ICU due to the severity of his symptoms, seen by Pulmonology, as well as ID. It was determined that the respiratory failure was likely as a result of influenza A infection as he was influenza A positive as well as probable recurrent aspiration versus mucus plugging. He was evaluated by the speech Therapy and recommended to be on a pureed diet. He refused to follow this diet and was made aware of the risks. I also spoke to his sister at the time of discharge and explained to her the risk of recurrent aspiration and readmission and even potential , and the patient was adamant that he was not going to change his diet. The patient, at the time of discharge, was clinically stable and will be discharged back to the nursing facility today. Job ID: [id number]
--- NOTE | 2019-09-28 12:04 | EKG ---
Test Reason : Blood Pressure : / mmHG Vent. Rate : 113 BPM Atrial Rate : 113 BPM P-R Int : 178 ms QRS Dur : 116 ms QT Int : 324 ms P-R-T Axes : 034 135 -11 degrees QTc Int : 444 ms Sinus tachycardia Possible Left atrial enlargement Right ventricular hypertrophy Inferior infarct , age undetermined Abnormal ECG Confirmed by JOHN RODRIGUEZ ([id number]), scientific publications editor CHELSEA NOWAK ([id number]) on 09/28/2019 12:04:24 PM Referred By: Confirmed By:JOHN RODRIGUEZ
--- NOTE | 2019-09-30 10:43 | PQF ---
WINSTON MATTSON TONI MD [id number] CLINICAL DOCUMENTATION CLARIFICATION FORM: POST DISCHARGE Addendum to original discharge summary date: ____ Late entry note date: __ DATE:09/30/2019 ATTN: JAGRUTI BOYD MD Please exercise your independent, professional judgment in responding to the clarification form. Clinical indicators are provided on the bottom of this form for your review Please check appropriate box(s): Kindly clarify the sepsis etiology; [X ] Sepsis due to internal vascular access catheter [ ] Sepsis due to influenza a pneumonia [ ] Sepsis due to aspiration pneumonia [ ] Other diagnosis [ ] Unable to determine For continuity of documentation, please document condition throughout progress notes and discharge summary. Thank You. CLINICAL INDICATORS - SIGNS / SYMPTOMS / LABS Sepsis associated with internal vascular access-Documented in H&P on 09/19 by Neal Hanna MD Qsofa 3/3 likely due to intravascular access for dialysis -Documented in H&P on 09/19 by Neal Hanna MD Aspiration pneumonia-Documented in PN on 09/21 Benny Gerardo MD Acute respiratory failure -This is due to pneumonia from influenza-Documented in Hospitalist PN on 09/22 by Sagar Villanueva [employer]ISK [employer]CTORS Aspiration pneumonia-Documented in PN on 09/21 Benny Gerardo MD Acute respiratory failure -This is due to pneumonia from influenza-Documented in Hospitalist PN on 09/22 by Sagar Villanueva Sepsis associated with internal vascular access-Documented in H&P on 09/19 by Neal Hanna MD TREATMENTS: Started on vanc and zosyn -Documented in H&P on 09/19 by Neal Hanna MD Contine tamiflu and supportive care , Continue Rocephin and vancomycin- Documented in Hospitalist PN on 09/23 by Sagar Villanueva (This form is maintained as a part of the permanent medical record) [id number]. All Rights Reserved [email or web address] [phone] MTDD
== END 2019-09-27 18:16 | DRG 314 ==
LOC: ERS 05:49 → CCU 07:20 → IMCU/EMU 09-23 22:30 → T4-B 09-26 20:43
PROVIDERS: ADMIT Internal Medicine; ATTEND Internal Medicine
PROC: 5A1D70Z Performance of Urinary Filtration, Intermittent, Less than 6 Hours Per Day (ICD-10-PCS; principal; 2019-09-22)
DX: T80.211A Bloodstream infection due to central venous catheter, initial encounter (principal); A41.9 Sepsis, unspecified organism; R65.20 Severe sepsis without septic shock; J96.21 Acute and chronic respiratory failure with hypoxia; N18.6 End stage renal disease; J96.22 Acute and chronic respiratory failure with hypercapnia; I50.33 Acute on chronic diastolic (congestive) heart failure; G93.41 Metabolic encephalopathy; J69.0 Pneumonitis due to inhalation of food and vomit; J10.08 Influenza due to other identified influenza virus with other specified pneumonia; I13.2 Hypertensive heart and chronic kidney disease with heart failure and with stage 5 chronic kidney disease, or end stage renal disease; C15.9 Malignant neoplasm of esophagus, unspecified; B20 Human immunodeficiency virus [HIV] disease; Y84.1 Kidney dialysis as the cause of abnormal reaction of the patient, or of later complication, without mention of misadventure at the time of the procedure; J10.1 Influenza due to other identified influenza virus with other respiratory manifestations; E11.22 Type 2 diabetes mellitus with diabetic chronic kidney disease; Z99.2 Dependence on renal dialysis; K21.9 Gastro-esophageal reflux disease without esophagitis; I25.2 Old myocardial infarction; Z90.49 Acquired absence of other specified parts of digestive tract; J44.9 Chronic obstructive pulmonary disease, unspecified; F41.9 Anxiety disorder, unspecified; Z87.891 Personal history of nicotine dependence; E11.51 Type 2 diabetes mellitus with diabetic peripheral angiopathy without gangrene; Z79.84 Long term (current) use of oral hypoglycemic drugs; E87.5 Hyperkalemia; G47.33 Obstructive sleep apnea (adult) (pediatric); I27.20 Pulmonary hypertension, unspecified; E11.649 Type 2 diabetes mellitus with hypoglycemia without coma; L89.92 Pressure ulcer of unspecified site, stage 2
CPT/HCPCS: 36415; 36416; 71045; 80048; 80053; 80202; 82553; 82805; 83605; 83615; 83735; 84145; 84484; 85025; 85048; 86361; 87040; 87070; 87102; 87149; 87205; 87206; 87449; 87536; 87633; 90935; 93005; 93010; 94640; 94660; 96365; 96367; 96375; G0257; J1644; J1815; J2185; J2248; J2543; J2920; J3370; J3490; J7070; J7512; J7620

== ENCOUNTER 2019-09-29 00:53 | Inpatient (IN) | payer OTHER ==
[2019-09-29 01:48] LABS: #Lymphocytes 0.7 thou/uL (1.20-3.40); #Monocytes 0.2 thou/uL (0.11-0.59); #Neutrophils 4.8 thou/uL (1.40-6.50); %Basophils 0.2 % (0.0-1.0); %Eosinophils 0.1 % (0.0-10.0); %Lymphocytes 11.8 % (21.0-51.0); %Monocytes 3.8 % (0.0-10.0); %Neutrophils 84.1 % (42.0-75.0); Hemoglobin 12.4 g/dL (14.0-18.0); Mean Corpuscular HGB CONC 33.4 g/dL (32.0-36.0); Mean Corpuscular Hemoglobin 36.4 pg (27.0-31.0); Mean Platelet Volume 9.8 fL (7.4-10.4); Platelet Count 179 thou/uL (130-400); RBC Distribution Width 20.5 % (11.5-14.5); White Blood Cell (WBC) Count 5.7 thou/uL (4.8-10.8)
[2019-09-29 02:10] LABS: ALT (SGPT) 13 U/L (8-55); AST (SGOT) 21 U/L (5-34); Albumin 3.2 g/dL (3.4-4.8); Alkaline Phosphatase 153 U/L (40-110); Anion Gap 18 mmol/L (10-20); BUN (Urea Nitrogen) 40 mg/dL (8.4-25.7); Bilirubin, Total 0.8 mg/dL (0.2-1.2); Calc. Creatinine Clearance 0 mL/min (70-130); Calcium 8.8 mg/dL (7.8-10.44); Carbon Dioxide 27 mmol/L (23-31); Chloride 97 mmol/L (98-107); Estimated GFR-MDRD 31; Globulin 3.5 g/dL (2.4-3.5); Glucose 90 mg/dL (80-115); Potassium 4.1 mmol/L (3.5-5.1); Protein, Total 6.7 g/dL (5.8-8.1); Sodium 138 mmol/L (136-145)
[2019-09-29 02:31] LABS: CKMB 3.5 ng/mL (0-6.6)
[2019-09-29] MEDS ORDERED: Acetaminophen 500 MG TAB ONE (02:54)
[2019-09-29] MEDS ORDERED: Aztreonam 1 GM in Sodium Chloride 0.9% 100 ML IVPB SCH (03:30)
[2019-09-29 03:43] LABS: Actual Bicarbonate (HCO3a) 26.6 mEq/L (22-28); Analyzer IN Cardio ER; Base Excess (BEa) 1.4 mEq/L (-2.0 to +3.0); CO2 Tension 44.5 mmHg (35.0-45.0); Calcium, Ionized 1.12 mmol/L (1.12-1.30); Carboxyhemoglobin (COHb) 1.2 gm% (0.0-3.0); Hemoglobin (Hb) 12.3 g/dL (14.0-18.0); O2 Tension (PaO2) 65.4 mmHg (> 80.0); Potassium - ABG Lab 3.94 mmol/L (3.70-5.30)
[2019-09-29] MEDS ORDERED: Calcium Carbonate 500 MG ChewTAB PO PRN (03:52)
[2019-09-29] MEDS ORDERED: Acetaminophen 650 MG Suppository PR PRN (03:52)
[2019-09-29] MEDS ORDERED: Ondansetron PF 4 MG/2 ML Vial IVP PRN (03:52)
[2019-09-29] MEDS ORDERED: Ondansetron ODT 4 MG TAB PO PRN (03:52)
[2019-09-29] MEDS ORDERED: MEROPENEM 1 GM/50 ML 1 GM in Premix Bag 1 BAG IVPB SCH (04:00)
[2019-09-29] MEDS ORDERED: Vancomycin HCl 1 GM in Premix Bag 1 BAG IVPB SCH (04:00)
[2019-09-29] MEDS ORDERED: Dextrose 5 % And 0.9 % NaCl 1,000 ML IV SCH (04:00)
[2019-09-29] MEDS ORDERED: Bacteriostatic Water 30 ML VIAL FS PRN (04:02)
[2019-09-29 04:04] LABS: Puncture Site RBA
[2019-09-29 04:05] LABS: ALV-art Gradient 164.175 (0-20)
[2019-09-29] MEDS ORDERED: methylPREDNISolone Sod Succ 40 MG VIAL IVP SCH (04:15)
--- NOTE | 2019-09-29 04:30 | HP ---
PRIMARY CARE: Dr. Myers at [facility]. CHIEF COMPLAINT: Shortness of breath. HISTORY OF PRESENT ILLNESS: The patient is a 64-year-old male with HIV, swallow dysfunction, and recent hospitalization for respiratory failure, presented to the emergency room with above complaints. Please refer to the discharge summary dated July 27, 2019 for details on recent hospitalization. Speech Therapy recommended a pureed diet. However, he refused to follow this diet. Post discharge, the patient felt okay. At the skilled nursing, he was found to have oxygen saturation of 46% with significant shortness of breath. At this time, he is somewhat confused and not much information is available from the patient. He underwent dialysis yesterday per ER record. His O2 saturation in the emergency room was 89% on 4 L nasal cannula. He was placed on noninvasive positive-pressure ventilation. PAST MEDICAL HISTORY: 1. Recent hospitalization for respiratory failure with influenza A and aspiration. 2. End-stage renal disease, on hemodialysis. 3. Diabetes mellitus, type 2. 4. Hypertension. 5. HIV, on HAART. 6. Swallow dysfunction, not compliant with the Speech Therapy recommendation. 7. Diverticulosis. 8. Hyperlipidemia. 9. History of esophageal cancer, treated with chemotherapy and radiation. 10. Anemia, secondary to renal insufficiency. 11. Obstructive sleep apnea. 12. COPD. 13. Hypertension. PAST SURGICAL HISTORY: 1. Hemorrhoidectomy. 2. Left above-knee amputation. 3. Left total knee replacement prior to amputation. 4. Hernia repair. 5. Tonsillectomy. 6. Left elbow surgery. 7. Dialysis access. 8. Cardiac catheterization in 2017 that showed normal coronaries. ALLERGIES: THE PATIENT IS ALLERGIC TO MULTIPLE MEDICATIONS INCLUDING CIPROFLOXACIN, CLINDAMYCIN, IODINE, PAXIL, KEFLEX, AND DALTEPARIN. CURRENT MEDICATIONS: At [facility], 1. Clonidine as needed. 2. Aspirin 81 mg daily. 3. Etravirine 200 mg twice a day. 4. Fludrocortisone 0.1 mg daily. 5. Fluticasone nasal spray daily. 6. Gabapentin 300 mg at bedtime. 7. Hydralazine 25 mg twice a day. 8. Lidocaine patch daily. 9. Melatonin 10 mg at bedtime. 10. Nortriptyline 25 mg at bedtime. 11. Pravastatin 10 mg daily. 12. Prednisone 40 mg daily. 13. Protonix 40 mg daily. 14. Albuterol inhaler as needed. 15. Raltegravir 400 mg twice a day. 16. Tylenol No. 3 as needed. 17. Zidovudine 100 mg every 8 hourly. SOCIAL HISTORY: The patient resides at [facility]. He drinks alcohol socially. He is a former smoker. He is also a former drug user. FAMILY HISTORY: Positive for heart disease. REVIEW OF SYSTEMS: Cannot be reliably obtained from the patient due to current cognitive status. PHYSICAL EXAMINATION: VITAL SIGNS: Temperature 99.2, respirations of 31, pulse rate of 113, blood pressure of 115/84 with O2 saturation of 89% on 4 L nasal cannula. GENERAL: A 64-year-old male, ill appearing with respiratory distress. Currently, on noninvasive positive-pressure ventilation. Respiratory therapist at the bedside, attempting to get an ABG. HEENT: Head; atraumatic, normocephalic. Sclerae anicteric. No oral lesion. NECK: Supple. No JVD. No carotid bruit. LUNGS: Showed diffuse expiratory wheezing with rhonchi and rales. There was accessory muscle use. There was diminished air entry on the left. HEART: S1, S2 present. Regular. Tachycardic. No rubs or gallops. ABDOMEN: Soft. Bowel sounds present. No rebound or guarding. EXTREMITIES: The patient has a history of left above-knee amputation. No calf tenderness on the right. SKIN: Warm and dry. LYMPH NODE: No palpable lymph nodes in the neck. PERIPHERAL VASCULAR: Radial pulses palpable bilaterally. MUSCULOSKELETAL: No joint swelling tenderness. LABORATORY FINDINGS: WBC 5.7 with hemoglobin 12.4, hematocrit 37, and platelet count of 179. ABGs are pending at this time. Chemistry showed sodium 138, potassium 4.1, chloride 97, bicarb 27, BUN 40, and creatinine 2.56. Troponin of 0.266. His troponin last admission was 0.498. His CD4 count last admission was 95. HIV viral load was low. Chest x-ray by my review showed left hemithorax opacification. EKG by my review showed sinus tachycardia. CT scan of the chest has been obtained, report is pending at this time. IMPRESSION: 1. Acute hypoxic respiratory failure, secondary to pneumonia, suspected aspiration. 2. Toxic metabolic encephalopathy, secondary to acute hypoxic respiratory failure. 3. Recent hospitalization for respiratory failure with hypoxia and influenza A infection. 4. Type 2 myocardial infarction. 5. Human immunodeficiency virus, on HAART. 6. End-stage renal disease, on hemodialysis. 7. Hypertension. 8. Diabetes mellitus, type 2. 9. Chronic obstructive pulmonary disease. 10. History of esophageal cancer, treated with chemotherapy and radiation. 11. Chronic anemia, secondary to renal insufficiency. PLAN: The patient will be monitored in the intermediate care unit. We will continue noninvasive positive-pressure ventilation. We will start him on vancomycin and meropenem. Infectious Disease and Pulmonary will be consulted. We will get ABGs. Blood cultures have been sent. Consult Nephrology for dialysis maintenance. Gentle IV hydration while n.p.o. We will start him on IV steroids. Nebulizer treatments. We will discuss the plan of care with the family when they arrive. Job ID: [id number]
[2019-09-29 06:06] LABS: Critical Call Chem Troponin I RESULT DECREASING; Troponin I 0.353 ng/mL (< 0.028)
--- NOTE | 2019-09-29 06:58 | CT ---
PRELIMINARY REPORT/[facility]/AFTER HOURS PROCEDURE CT CHEST WITHOUT INTRAVENOUS CONTRAST: CLINICAL HISTORY: M64 presents to ED by EMS w SOB. EMS reports pts difficulty breathing was more anxiety related, sats reading 98, cold extremities. Dialysis yesterday. Pt c/o tongue pain. TECHNIQUE: Axial computed tomography images of the chest without intravenous contrast. COMPARISON: None provided. FINDINGS: LUNGS: The pulmonary artery is enlarged measuring 5.1 cm in diameter, suggesting pulmonary hypertensi on. There are patchy infiltrates in both lungs. PLEURAL SPACES: No pleural effusion. No pneumothorax. HEART AND MEDIASTINUM: There is a moderate severe cardiomegaly with particular enlargement of the rig ht ventricle. LYMPH NODES: No lymphadenopathy. CHEST WALL AND UPPER ABDOMEN: There is severe atrophy of both kidneys. BONES: No acute osseous abnormality. MISCELLANEOUS: There is a large soft tissue mass in the left thyroid gland measuring about 4.5 x 4.1 x 4.8 cm with irregular calcification. IMPRESSION: 1. There is a large soft tissue mass in the left thyroid gland measuring about 4.5 x 4.1 x 4.8 cm wit h irregular calcification. 2. The pulmonary artery is enlarged measuring 5.1 cm in diameter, suggesting pulmonary hypertension. 3. There is a moderate severe cardiomegaly with particular enlargement of the right ventricle. 4. There are patchy infiltrates in both lungs. ELECTRONICALLY SIGNED BY: Jennifer Wasserman MD Sep 29, 2019 3:13:40 AM TEENAGE BABYSIT[employer] This report is intended for review by the ordering physician only, in accordance of law. If you recei ve this report in error, please call [facility] at [phone]. FINAL REPORT EMERGENT AFTER HOURS CTA CHEST WITHOUT CONTRAST: FINDINGS: I agree with the findings and impression given in the preliminary report per the [facility] phy sician. IMPRESSION: 1. There is cardiomegaly and enlargement of the pulmonary artery. 2. Multifocal opacities in the lungs could represent infiltrates or pulmonary edema. Bibasilar atelec tasis is seen. 3. There is stable enlargement of the left thyroid lobe. 4. Small atrophic kidneys containing cysts. CODE QA
[2019-09-29] MEDS ORDERED: Milk Of Magnesia 30 ML UDCUP PO PRN (09:21)
[2019-09-29] MEDS ORDERED: Docusate 100 MG CAP PO PRN (09:21)
[2019-09-29] MEDS ORDERED: Lidocaine 5% Patch TD SCH (09:45)
--- NOTE | 2019-09-29 09:46 | RAD ---
PORTABLE SEMIUPRIGHT FRONTAL CHEST RADIOGRAPH: 09/29/2019 HISTORY: Shortness of breath. COMPARISON: 09/21/2019 FINDINGS: There has been marked interval worsening of left lung aeration. Prior exam demonstrated dense opacity in the left base. There has been interval development of near complete opacification of the left upp er lobe in addition to the dense opacity within the left base. There is patchy air space disease within the right suprahilar and right infrahilar region as well, no t significantly changed on the right since the prior exam. There is atherosclerotic calcification in the aortic arch. IMPRESSION: Interval worsening of aeration of the left lung with now near complete opacification of the left shivani thorax, suggesting worsening aspiration/infectious pneumonitis. Underlying mass lesion cannot be excl uded. Short-term follow-up imaging following treatment advised to document resolution. CT chest may be bene ficial. POS: MIKE
[2019-09-29] MEDS: Famotidine 20 MG TAB PO SCH (12:19)
[2019-09-29] MEDS: Aspirin 81 mg Enteric Coated Tablet PO SCH (12:19)
[2019-09-29] MEDS: Famotidine/PF 20 mg/2ml Vial SLOW IVP SCH (12:19)
--- NOTE | 2019-09-29 13:12 | PDOC.HOSPP ---
- Subjective Encounter Date: 09/29/19 Encounter Time: 10:00 Subjective: pt up in bed appears in respiratory distress. - Objective Vital Signs & Weight: Vital Signs (12 hours) Temp Pulse Resp Pulse Ox 09/29/19 11:08 97.6 F 09/29/19 10:36 95 24 H 09/29/19 08:00 97 09/29/19 07:08 96.5 F L 09/29/19 04:25 94 96 09/29/19 03:55 98.2 F 98 Weight Weight 155 lb 6.814 oz Result Diagrams: 09/29/19 01:37 09/29/19 01:37 Hospitalist ROS - Review of Systems Cardiovascular: denies: chest pain, palpitations, orthopnea, paroxysmal noc. dyspnea, edema, light headedness, other Gastrointestinal: denies: nausea, vomiting, abdominal pain, diarrhea, constipation, melena, hematochezia, other Genitourinary: denies: dysuria, frequency, incontinence, hematuria, retention, other - Medication Medications: Active Medications Generic Name Dose Route Start Last Admin Trade Name Freq PRN Reason Stop Dose Admin Albuterol/Ipratropium 3 ml 09/29/19 06:30 09/29/19 10:36 Duoneb NEB 3 ml [id number] ESME Administration Aspirin 81 mg 09/29/19 09:00 09/29/19 12:19 Ecotrin PO Not Given DAILY [facility] Famotidine 20 mg 09/29/19 09:00 09/29/19 12:19 Pepcid SLOW IVP Not Given 0900 [facility] Famotidine 20 mg 09/29/19 09:00 09/29/19 12:19 Pepcid PO Not Given 0900 [facility] - Exam General - other findings: pt appears ill, awake but oriented x1 Neck: negative: supple, symmetric, no JVD, no thyromegaly, no lymphadenopathy, no carotid bruit, JVD Heart: negative: RRR, no murmur, no gallops, no rubs, normal peripheral pulses, irregular, diminshed peripheral pulses, murmur present, II/IV, III/IV Respiratory: rhonchi Gastrointestinal: negative: soft, non-tender, non-distended, normal bowel sounds , no palpable masses, no hepatomegaly, no splenomegaly, no bruit, no guarding, no rigidity, tender to palpation, distended, diminished bowl sounds, voluntary guarding Hosp A/P (1) Acute on chronic respiratory failure with hypoxemia Code(s): J96.21 - ACUTE AND CHRONIC RESPIRATORY FAILURE WITH HYPOXIA Status: Acute (2) DM (diabetes mellitus) Code(s): E11.9 - TYPE 2 DIABETES MELLITUS WITHOUT COMPLICATIONS Status: Chronic (3) ESRD (end stage renal disease) on dialysis Code(s): N18.6 - END STAGE RENAL DISEASE; Z99.2 - DEPENDENCE ON RENAL DIALYSIS Status: Chronic (4) HIV (human immunodeficiency virus infection) Code(s): B20 - HUMAN IMMUNODEFICIENCY VIRUS [HIV] DISEASE Status: Chronic Qualifiers: (5) Moderate protein malnutrition Code(s): E44.0 - MODERATE PROTEIN-CALORIE MALNUTRITION Status: Chronic (6) Acute metabolic encephalopathy Code(s): G93.41 - METABOLIC ENCEPHALOPATHY Status: Resolved (7) NSTEMI (non-ST elevated myocardial infarction) Code(s): I21.4 - NON-ST ELEVATION (NSTEMI) MYOCARDIAL INFARCTION Status: Resolved - Plan pt needs to be back on bipap. His last cb4 count was in the 90's He will need pcp and mac ppx. Not sure if he is taking his meds. will check ldh, his A-a gradient is high. will also get ID. pt is on broad spectrum abx and has had multiple admissions this month. His elevated trop is most likely demand related.
[2019-09-29] MEDS: Sevelamer Carbonate 800 MG TAB PO SCH ×2 (13:36→18:02)
[2019-09-29] MEDS: methylPREDNISolone Sod Succ 40 MG VIAL IVP SCH ×2 (13:48→18:14)
--- NOTE | 2019-09-29 14:37 | CON ---
DATE OF CONSULTATION: 09/29/2019 HISTORY OF PRESENT ILLNESS: Mr. Villeda was just recently discharged after his episode of influenza pneumonitis. He was sent to the intermediate and then was found to have worsening dyspnea with desaturation, was brought back to the emergency room and on arrival, his sats were reading in 98%. He had cold extremities and BP 115/84, pulse 113, and temperature 99.2. Repeat O2 sats on 4 L were 89%, and the exam shows respiratory distress with wheezing, which is present diffusely. The initial labs with a white cell count of 5.7, hemoglobin 12.4, platelets 179 with 84% neutrophils. Sodium 138, creatinine 2.56. Transaminases and bilirubin, normal. Alkaline phosphatase 153. Troponin I 0.2 and then 0.353. Albumin 3.2. A chest x-ray with complete or almost complete opacification of left lung and deviation of the midline towards the left. A few areas of haziness on the right side. The patient had a chest CT, which showed cardiomegaly and patchy infiltrates in both lungs could be pulmonary edema. The patient has been given inhalers and meropenem, vancomycin. He is currently awake. He is upset because of that they are not letting him drink due to the BiPAP mask. Denies headaches. No chest pain. A little bit of cough. No sputum production. No abdominal pain. PAST MEDICAL HISTORY: A longstanding HIV infection with adequate virologic control and last CD4 around 300, end-stage renal disease secondary to type 2 diabetes, left upper extremity AV fistula, hemodialysis, C difficile colitis, MRSA bacteremia recently treated for 4 weeks of unknown primary site, esophageal cancer on chemoradiation therapy, gastritis, COPD, hypertension. FAMILY HISTORY: Noncontributory. SOCIAL HISTORY: Former smoker. Currently, a resident at [facility]. 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 ALLERGY HISTORY: Clindamycin, Paxil, Keflex, Cipro, dalteparin, and insulin. CURRENT MEDICATIONS: 1. DuoNeb. 2. Ecotrin. 3. Tums. 4. Caltrate. 5. Coreg. 6. Colace. 7. Intelence. 8. Pepcid. 9. Florinef. 10. Folvite. 11. Neurontin. 12. Apresoline. 13. Lidoderm. 14. Melatonin. 15. Meropenem. 16. Methylprednisolone. 17. Zofran. 18. Protonix. 19. Pravachol. 20. Isentress. 21. Renvela. 22. Vancomycin. PHYSICAL EXAMINATION: VITAL SIGNS: He has been afebrile throughout the hospital stay. BP 115/70, pulse 95, O2 saturations are at 98% on a BiPAP mask. SKIN: Shows the sacrococcygeal stage II, kind of quite shallow. Central area has a little bit of yellowish irregular base, but most of the ulcer is reddish with no undermining, quite flat, shallow against the skin. Peripheral IV access. He is voiding in the diaper. Minimal urinary output. No lymphadenopathy. HEENT: Ocular movements conjugate. Oral cavity with numerous missing teeth. Dry oral mucosa. LUNGS: Symmetric air entry. CARDIOVASCULAR: S1, S2. Regular rate. Coarse breath sounds. ABDOMEN: Soft, not distended or tender. No ascites. No bladder distention. EXTREMITIES: No joint inflammatory activity. Moves extremities equally. NEUROLOGICAL: He is awake, oriented, follows commands. LABORATORY DATA: No followup or it is too early for followup labs. Blood cultures are pending. ASSESSMENT: 1. End-stage renal disease secondary to type 2 diabetes. 2. Human immunodeficiency virus infection, well controlled, on effective anti-retroviral therapy. 3. Recent episode of influenza A infection, which led to admission. He was discharged and now is back in the hospital with bilateral infiltrates. DISCUSSION: Differential diagnosis includes a superimposed bacterial pneumonia or pulmonary edema, volume overload. We will go ahead and check his BNP, but I think that the volume overload is more likely scenario. We will continue on broad-spectrum regimen for potential superimposed bacterial pneumonia. Job ID: [id number]
--- NOTE | 2019-09-29 17:09 | PRG ---
DATE OF SERVICE: 09/29/2019 SUBJECTIVE: Mr. Villeda is back in the hospital. He has bilateral pulmonary infiltrates. He is a dialysis patient. He has not been out, but just for a few days. There is no reason to re-dictate a full consult. His problems include HIV, end-stage renal disease secondary to diabetes, history of Staph aureus bacteremia, history of esophageal cancer followed at [facility], COPD, and hypertension. It is unclear what the status of his esophageal cancer is and he is unable to tell me. We asked for Juan and [facility] records last visit, but I never did see the records regarding his Oncology care. He presented back with shortness of breath. He is on BiPAP. He is in no distress. He wants to eat and drink. OBJECTIVE: VITAL SIGNS: Afebrile, heart rate in the 90s, and respiratory rates in the 20s. His FiO2 is at 30%. HEAD AND NECK: Unremarkable. LUNGS: Remarkable for equal breath sounds. No crackles are heard. HEART: Regular rhythm. ABDOMEN: Soft. EXTREMITIES: Remarkable for an amputation. IMPRESSION: Pulmonary infiltrates. With his end-stage renal disease, most likely this is volume related. If his radiograph improves with dialysis, then answers a question. His HIV is potentially an issue, but last admission he kept having waxing and waning respiratory distress with an unremarkable chest radiograph. My feeling all along is that he is somehow aspirating. Less likely, I wonder if he does not have a tracheoesophageal fistula, but there has been nothing on multiple CT showing that. He has had a thromboembolic disease worked up and he had an emergent cardiac catheterization last admission that did not show any obstructive coronary artery disease. I agree with current care. I will be happy to follow the other physicians caring for him. His prognosis is extremely poor. Job ID: [id number]
[2019-09-29 17:43] LABS: Actual Bicarbonate (HCO3a) 27.6 mEq/L (22-28); Base Excess (BEa) 1.8 mEq/L (-2.0 to +3.0); CO2 Tension 48.8 mmHg (35.0-45.0); Carboxyhemoglobin (COHb) 1.9 gm% (0.0-3.0); Hemoglobin (Hb) 12.2 g/dL (14.0-18.0); O2 Tension (PaO2) 65.2 mmHg (> 80.0); Potassium - ABG Lab 4.42 mmol/L (3.70-5.30); pH, Arterial 7.37 (7.35-7.45)
[2019-09-29 17:48] LABS: Puncture Site RRA
[2019-09-29] MEDS ORDERED: ETRAVIRINE 200 MG PO SCH (18:00)
--- NOTE | 2019-09-29 18:31 | RAD ---
FRONTAL RADIOGRAPH CHEST: Date: 09-29-2019 Comparison: Prior study, same day. History: Shortness of breath. FINDINGS: Right paratracheal region consistent with vascular prominence when compared to recent CT exam. No pne umothorax is noted. Cardiac silhouette is enlarged. There is pulmonary vascular congestion. There is mid left lung zone airspace disease with bibasilar consolidation/collapse, left greater than right. F indings suggest infectious pneumonitis/aspiration, especially involving the left lower lobe. When com pared to the chest radiograph performed earlier on 09-29-2019 there has been marked interval improveme nt in aeration within the left lung. IMPRESSION: Portable chest radiograph as detailed above. POS: ALISE
[2019-09-29] MEDS ORDERED: HumaLOG 300 UNITS/3 ML VIAL SC PRN ×2 (19:42)
[2019-09-29] MEDS ORDERED: Dextrose 5% in Water 1,000 ML IV PRN (19:42)
[2019-09-29] MEDS ORDERED: Pravastatin Sodium 20 MG TAB PO SCH (21:00)
[2019-09-29] MEDS ORDERED: Non-Formulary Item 1 EACH (Melatonin [Melatonin] 10 MG) PO SCH (21:00)
[2019-09-29] MEDS: hydrALAZINE 25 MG TAB PO SCH (21:09)
[2019-09-29] MEDS: Carvedilol 3.125 MG TAB PO SCH (21:09)
[2019-09-29] MEDS: Gabapentin 300 MG CAP PO SCH (21:09)
[2019-09-29] MEDS: Pravastatin Sodium 20 MG TAB PO SCH (21:11)
[2019-09-29] MEDS: Melatonin 3 MG TAB PO SCH (21:11)
[2019-09-29] MEDS: Nortriptyline HCl 25 MG CAP PO SCH (21:12)
[2019-09-29] MEDS: Raltegravir Potassium 400 MG TAB PO SCH (21:12)
[2019-09-29] MEDS: Lidocaine Patch Removal 1 EACH TOP SCH (21:45)
[2019-09-30] MEDS: methylPREDNISolone Sod Succ 40 MG VIAL IVP SCH ×4 (00:40→17:37)
[2019-09-30] MEDS: Vancomycin HCl 750 MG in Sodium Chloride 0.9% 250 ML 250 ML IVPB SCH (02:29)
[2019-09-30] MEDS ORDERED: MEROPENEM 1 GM/50 ML 1 GM in Premix Bag 1 BAG IVPB SCH (04:30)
[2019-09-30 04:35] LABS: #Lymphocytes 0.6 thou/uL (1.20-3.40); #Monocytes 0.3 thou/uL (0.11-0.59); #Neutrophils 3.7 thou/uL (1.40-6.50); %Eosinophils 0.1 % (0.0-10.0); %Lymphocytes 13.1 % (21.0-51.0); %Monocytes 5.8 % (0.0-10.0); Hemoglobin 11.7 g/dL (14.0-18.0); Mean Corpuscular HGB CONC 32.8 g/dL (32.0-36.0); Mean Corpuscular Hemoglobin 35.8 pg (27.0-31.0); Mean Platelet Volume 10.1 fL (7.4-10.4); Platelet Count 190 thou/uL (130-400); RBC Distribution Width 20.8 % (11.5-14.5); Red Blood Cell (RBC) Count 3.28 mill/uL (4.70-6.10); White Blood Cell (WBC) Count 4.6 thou/uL (4.8-10.8)
[2019-09-30 04:54] LABS: ALT (SGPT) 11 U/L (8-55); AST (SGOT) 16 U/L (5-34); Albumin 2.9 g/dL (3.4-4.8); Alkaline Phosphatase 131 U/L (40-110); Anion Gap 19 mmol/L (10-20); BUN (Urea Nitrogen) 58 mg/dL (8.4-25.7); Bilirubin, Total 0.6 mg/dL (0.2-1.2); Calc. Creatinine Clearance 20 mL/min (70-130); Calcium 8.2 mg/dL (7.8-10.44); Carbon Dioxide 26 mmol/L (23-31); Chloride 97 mmol/L (98-107); Estimated GFR-MDRD 20; Globulin 3.1 g/dL (2.4-3.5); Glucose 112 mg/dL (80-115); Potassium 4.7 mmol/L (3.5-5.1); Sodium 137 mmol/L (136-145)
[2019-09-30] MEDS ORDERED: CALCIUM LACTATE 650 MG PO SCH (09:00)
[2019-09-30] MEDS ORDERED: Non-Formulary Item 1 EACH (Cyanocobalamin (Vitamin B-12) [Vitamin B12] 1,000 MCG) PO SCH (09:00)
[2019-09-30] MEDS ORDERED: Aspirin 81 mg Enteric Coated Tablet PO SCH (09:00)
[2019-09-30] MEDS: Carvedilol 3.125 MG TAB PO SCH ×2 (09:09→21:02)
[2019-09-30] MEDS: Aspirin 81 mg Enteric Coated Tablet PO SCH (09:09)
[2019-09-30] MEDS: Folic Acid 1 MG TAB PO SCH (09:09)
[2019-09-30] MEDS: Sevelamer Carbonate 800 MG TAB PO SCH ×3 (09:09→17:34)
[2019-09-30] MEDS: Famotidine 20 MG TAB PO SCH (09:09)
[2019-09-30] MEDS: Cyanocobalamin (Vitamin B-12) 1,000 MCG TAB PO SCH (09:09)
[2019-09-30] MEDS: hydrALAZINE 25 MG TAB PO SCH ×2 (09:09→21:02)
[2019-09-30] MEDS: Raltegravir Potassium 400 MG TAB PO SCH ×2 (09:10→21:02)
[2019-09-30] MEDS: Fludrocortisone Acetate 0.1 MG TAB PO SCH (09:10)
[2019-09-30] MEDS: Calcium Carbonate 600 MG TAB PO SCH (09:10)
[2019-09-30] MEDS: Famotidine/PF 20 mg/2ml Vial SLOW IVP SCH (09:11)
[2019-09-30] MEDS: Lidocaine 5% Patch TD SCH (09:11)
--- NOTE | 2019-09-30 10:43 | RAD ---
PORTABLE CHEST: INDICATION: Pneumonia followup. COMPARISON: 09/29/2019. FINDINGS: Cardiomegaly is prominent. Vascular congestion. Dense opacification of the left lung base indicatin g increasing atelectasis and consolidation with effusion. Atelectasis and infiltrate in the right elodia ng base is also more prominent. IMPRESSION: Worsening infiltrates and/or atelectasis with vascular congestion when compared to 09/29/2019. POS: C
--- NOTE | 2019-09-30 12:44 | PRG ---
DATE OF SERVICE: 09/30/2019 OBJECTIVE: VITAL SIGNS: Mr. Villeda is afebrile. Heart rates in the 70s, respiratory rate is 20, oximetry is 98%. LUNGS: Recommended that he go back on BiPAP. On exam, he has crackles bilaterally, and on x-ray, he still has pulmonary edema. He is scheduled to be dialyzed soon. HEART: Regular rhythm. ABDOMEN: Soft. EXTREMITIES: Without asymmetry. LABORATORY DATA: White count 4.6, hemoglobin 11.7, platelets 190. Electrolytes were normal. BUN 58, creatinine 3.76. IMPRESSION AND PLAN: 1. End-stage renal disease. 2. Human immunodeficiency virus positive, declining CD4 count. 3. Pulmonary edema. 4. Frequent respiratory exacerbations, requiring noninvasive ventilatory support, likely secondary to pulmonary edema in this admission. Last visit, I was more worried about chronic aspiration. He is contemplating going back on hospice. I feel that this would not be an inappropriate decision. We will continue to follow. Job ID: [id number]
--- NOTE | 2019-09-30 14:55 | PRG ---
DATE OF SERVICE: 09/30/2019 SUBJECTIVE: The patient was seen and examined today, noted with the following vital signs. OBJECTIVE: VITAL SIGNS: Afebrile. Temperature 97.8, pulse 71, respiratory rate of 20, O2 saturation of 98%. HEENT: Remarkable for BiPAP in place. CARDIOVASCULAR SYSTEM: First and second heart sounds were heard. RESPIRATORY SYSTEM: Clear to auscultation. DIGESTIVE SYSTEM: Revealed a benign abdomen. EXTREMITIES: No peripheral edema. SKIN: No new gross rash. LYMPHATICS: No peripheral lymphadenopathy. IMPRESSION: 1. End-stage renal disease. 2. Respiratory failure. PLAN: 1. The patient to undergo dialysis with ultrafiltration only today. 2. Further management to be dependent on the clinical course. 3. The patient to undergo regular dialysis tomorrow. Job ID: [id number]
--- NOTE | 2019-09-30 15:47 | PRG ---
DATE OF SERVICE: 09/30/2019 SUBJECTIVE: Mr. Villeda is being dialyzed at the moment. The nurse is having difficulty in removing fluid because of his blood pressure, which is in the low side hovering around 98/60. As previously noted, he continues to request for water. He has not had a fever since admission. He is on a BiPAP mask and O2 saturations are 98%. He is oriented, follows commands. OBJECTIVE: LUNGS: With scattered rhonchi and inspiratory crackles. HEART: S1 and S2. Regular rate with a soft aortic murmur. ABDOMEN: Not distended. EXTREMITIES: Diffuse weakness. He is able to move extremities, but with quite a bit of limitation. NEUROLOGIC: He is drowsy, but arousable and follows commands. LABORATORY DATA: White cell count 5.7 and 4.6, hemoglobin 11.7, platelets 190, 81% neutrophils. Creatinine is at 3.76, potassium 4.7, sodium 137, bilirubin 0.6. Transaminases normal. Albumin 2.9. 2 sets of blood cultures thus far no growth. Repeat chest x-ray with cardiomegaly and pulmonary venous congestion as well as pulmonary edema. ASSESSMENT AND DISCUSSION: End-stage renal disease associated with type 2 diabetes, longstanding human immunodeficiency virus infection well controlled on effective antiretroviral therapy and CD4 in the mid 300s with suppressed viral load, recent influenza A infection, which now has led to readmission associated with likely volume overload. Influenza infection in immunosuppressed patients may be associated with protracted viral respiratory tract production beyond the usual 5 to 7 days. I would consider keeping him on droplet precautions. Job ID: [id number]
--- NOTE | 2019-09-30 16:51 | PDOC.HOSPP ---
- Subjective Encounter Date: 09/30/19 Encounter Time: 11:45 Subjective: pt up in bed on bipap. - Objective Vital Signs & Weight: Vital Signs (12 hours) Temp Pulse Resp Pulse Ox 09/30/19 15:48 97.1 F L 09/30/19 15:16 78 09/30/19 15:13 78 21 H 99 09/30/19 11:26 72 09/30/19 11:24 71 20 98 09/30/19 11:16 97.8 F 09/30/19 09:09 83 09/30/19 08:40 83 24 H 94 L 09/30/19 07:39 96 09/30/19 07:16 97.7 F Weight Weight 155 lb 6.814 oz I&O: 09/29/19 09/30/19 10/01/19 06:59 06:59 06:59 Intake Total 671 Balance 671 Result Diagrams: 09/30/19 03:27 09/30/19 03:27 Additional Labs: Accuchecks 09/30/19 09/30/19 09/30/19 15:53 10:43 06:26 POC Glucose 109 137 H 114 H 09/29/19 20:11 POC Glucose 99 Hospitalist ROS - Review of Systems Cardiovascular: denies: chest pain, palpitations, orthopnea, paroxysmal noc. dyspnea, edema, light headedness, other Gastrointestinal: denies: nausea, vomiting, abdominal pain, diarrhea, constipation, melena, hematochezia, other Genitourinary: denies: dysuria, frequency, incontinence, hematuria, retention, other - Medication Medications: Active Medications Generic Name Dose Route Start Last Admin Trade Name Darioq PRN Reason Stop Dose Admin Albuterol/Ipratropium 3 ml 09/29/19 06:30 09/30/19 15:13 Duoneb NEB 3 ml [id number] ESME Administration Aspirin 81 mg 09/29/19 09:00 09/30/19 09:09 Ecotrin PO 81 mg DAILY ESME Administration Calcium Carbonate 600 mg 09/30/19 09:00 09/30/19 09:10 Caltrate PO 600 mg DAILY ESME Administration Carvedilol 3.125 mg 09/29/19 21:00 09/30/19 09:09 Coreg PO 3.125 mg BID ESME Administration Cyanocobalamin 1,000 mcg 09/30/19 09:00 09/30/19 09:09 Vitamin B-12 PO 1,000 mcg DAILY ESME Administration Etravirine 200 mg 09/29/19 18:00 09/30/19 09:09 Intelence PO 200 mg BID-PC ESME Administration Famotidine 20 mg 09/29/19 09:00 09/30/19 09:11 Pepcid SLOW IVP Not Given 0900 ESME Famotidine 20 mg 09/29/19 09:00 09/30/19 09:09 Pepcid PO 20 mg 0900 ESME Administration Fludrocortisone Acetate 0.1 mg 09/30/19 09:00 09/30/19 09:10 Florinef PO 0.1 mg DAILY ESME Administration Folic Acid 1 mg 09/30/19 09:00 09/30/19 09:09 Folvite PO 1 mg DAILY ESME Administration Gabapentin 300 mg 09/29/19 21:00 09/29/19 21:09 Neurontin PO 300 mg HS ESME Administration Hydralazine HCl 25 mg 09/29/19 21:00 09/30/19 09:09 Apresoline PO 25 mg BID ESME Administration Meropenem 1 gm/ Device 50 mls @ 100 mls/hr 09/30/19 04:30 09/30/19 05:05 IVPB 50 mls 0430 ESME Administration Vancomycin HCl 750 mg/ Sodium 250 mls @ 250 mls/hr 09/30/19 02:00 09/30/19 02 :29 Chloride IVPB 250 mls 0200 ESME Administration Lidocaine 1 patch 09/30/19 09:00 09/30/19 09:11 Lidoderm 5% Patch TD 1 patch Q24HR ESME Administration Melatonin 9 mg 09/29/19 21:00 09/29/19 21:11 Melatonin PO 9 mg HS ESME Administration Methylprednisolone Sodium Succinate 40 mg 09/29/19 12:00 09/30/19 12:06 Solu-Medrol IVP 40 mg Q6HR ESME Administration Miscellaneous Medication 1 each 09/29/19 21:00 09/29/19 21:45 Lidocaine Patch Removal TOP 1 each 2100 ESME Administration Nortriptyline HCl 25 mg 09/29/19 21:00 09/29/19 21:12 Pamelor PO 25 mg HS ESME Administration Pantoprazole Sodium 40 mg 09/30/19 09:00 09/30/19 09:09 Protonix PO 40 mg DAILY ESME Administration Pravastatin Sodium 5 mg 09/29/19 21:00 09/29/19 21:11 Pravachol PO 5 mg HS ESME Administration Raltegravir 400 mg 09/29/19 21:00 09/30/19 09:10 Isentress PO 400 mg BID ESME Administration Sevelamer Carbonate 800 mg 09/29/19 12:00 09/30/19 13:10 Renvela PO Not Given TID-WM ESME Zidovudine 100 mg 09/29/19 14:00 09/30/19 05:15 Retrovir PO 100 mg Q8HR ESME Administration - Exam Neck: negative: supple, symmetric, no JVD, no thyromegaly, no lymphadenopathy, no carotid bruit, JVD Heart: negative: RRR, no murmur, no gallops, no rubs, normal peripheral pulses, irregular, diminshed peripheral pulses, murmur present, II/IV, III/IV Respiratory: rhonchi Gastrointestinal: negative: soft, non-tender, non-distended, normal bowel sounds , no palpable masses, no hepatomegaly, no splenomegaly, no bruit, no guarding, no rigidity, tender to palpation, distended, diminished bowl sounds, voluntary guarding Hosp A/P (1) Acute on chronic respiratory failure with hypoxemia Code(s): J96.21 - ACUTE AND CHRONIC RESPIRATORY FAILURE WITH HYPOXIA Status: Acute (2) DM (diabetes mellitus) Code(s): E11.9 - TYPE 2 DIABETES MELLITUS WITHOUT COMPLICATIONS Status: Chronic (3) ESRD (end stage renal disease) on dialysis Code(s): N18.6 - END STAGE RENAL DISEASE; Z99.2 - DEPENDENCE ON RENAL DIALYSIS Status: Chronic (4) HIV (human immunodeficiency virus infection) Code(s): B20 - HUMAN IMMUNODEFICIENCY VIRUS [HIV] DISEASE Status: Chronic Qualifiers: (5) Moderate protein malnutrition Code(s): E44.0 - MODERATE PROTEIN-CALORIE MALNUTRITION Status: Chronic (6) Acute metabolic encephalopathy Code(s): G93.41 - METABOLIC ENCEPHALOPATHY Status: Resolved (7) NSTEMI (non-ST elevated myocardial infarction) Code(s): I21.4 - NON-ST ELEVATION (NSTEMI) MYOCARDIAL INFARCTION Status: Resolved - Plan pt needs to be back on bipap. His last cb4 count was in the 's He will need pcp and mac ppx. Not sure if he is taking his meds. will check ldh, his A-a gradient is high. will also get ID. pt is on broad spectrum abx and has had multiple admissions this month. His elevated trop is most likely demand related. 09/30 pt on broad spectrum abx. ESRD on dialysis. He is on antivirals. palliative care to meet with family for change in code status.
--- NOTE | 2019-09-30 17:28 | CON ---
DATE OF CONSULTATION: CONSULTING PHYSICIAN: Bruce Archuleta MD REQUESTING PHYSICIAN: Valdo Mills MD REASON FOR CONSULTATION: Need for maintenance hemodialysis in the patient with end-stage renal disease. IMPRESSION: 1. End-stage renal disease on hemodialysis, dialyzes on Monday. 2. Respiratory failure in the context of acquired pneumonia plus or minus some component of fluid overloaded. PLAN: 1. The patient does not have any emergent indication for dialysis on the day of presentation. The patient to be dialyzed and focus only on ultrafiltration on Monday. 2. Further management to be dependent on the clinical course. HISTORY OF PRESENT ILLNESS: History is that of a 64-year-old gentleman with end-stage renal disease and multiple comorbidities, who recently has been in and out of hospital on regular basis, re-presented getting respiratory failure, noted to have evidence of pneumonitis, hospital-acquired, needing for maintenance dialysis in this renal consultation. Past medical history, family history, and social history remained the same. Please for the details of this part of the history, refer to the recent admission. REVIEW OF SYSTEMS: Could not be obtained as the patient is on BiPAP. PHYSICAL EXAMINATION: GENERAL: The patient was noted to be in respiratory distress. HEENT: Remarkable for BiPAP mask in place. CARDIOVASCULAR SYSTEM: First and second heart sounds. RESPIRATORY SYSTEM: Revealed lot of rales and transmitted sounds. DIGESTIVE SYSTEM: Revealed a benign abdomen. EXTREMITIES: No peripheral edema. SKIN: No new gross rash. LYMPHATICS: No peripheral lymphadenopathy. SUMMARY: A 64-year-old gentleman with multiple comorbid disease in and out of the hospital because of respiratory issues, recently treated for flu. Thank you for this consultation. We will follow with you. Job ID: [id number]
[2019-09-30] MEDS: Nortriptyline HCl 25 MG CAP PO SCH (21:02)
[2019-09-30] MEDS: Pravastatin Sodium 20 MG TAB PO SCH (21:03)
[2019-09-30] MEDS: Gabapentin 300 MG CAP PO SCH (21:03)
[2019-09-30] MEDS: Melatonin 3 MG TAB PO SCH (21:03)
[2019-09-30] MEDS: Acetaminophen 325 MG TAB PO PRN (21:11)
[2019-09-30] MEDS: Lidocaine Patch Removal 1 EACH TOP SCH (21:34)
[2019-10-01] MEDS: methylPREDNISolone Sod Succ 40 MG VIAL IVP SCH ×4 (00:25→17:34)
[2019-10-01 01:17] LABS: Vancomycin, Trough 17.6 ug/mL
[2019-10-01] MEDS: Vancomycin HCl 750 MG in Sodium Chloride 0.9% 250 ML 250 ML IVPB SCH (01:34)
[2019-10-01] MEDS: Meropenem 500 MG in Sodium Chloride 0.9% 100 ML IVPB SCH ×2 (04:27→16:29)
[2019-10-01 04:32] LABS: ALT (SGPT) 9 U/L (8-55); AST (SGOT) 14 U/L (5-34); Albumin 2.9 g/dL (3.4-4.8); Alkaline Phosphatase 135 U/L (40-110); Anion Gap 23 mmol/L (10-20); BUN (Urea Nitrogen) 76 mg/dL (8.4-25.7); Bilirubin, Total 0.5 mg/dL (0.2-1.2); Calc. Creatinine Clearance 17 mL/min (70-130); Calcium 8.4 mg/dL (7.8-10.44); Carbon Dioxide 20 mmol/L (23-31); Chloride 97 mmol/L (98-107); Estimated GFR-MDRD 17; Glucose 116 mg/dL (80-115); Protein, Total 5.9 g/dL (5.8-8.1); Sodium 134 mmol/L (136-145)
[2019-10-01 05:27] LABS: #Eosinphils 0.1 thou/uL (0.0-0.7); #Lymphocytes 1.4 thou/uL (1.20-3.40); #Monocytes 0.4 thou/uL (0.11-0.59); #Neutrophils 3.9 thou/uL (1.40-6.50); %Basophils 0.2 % (0.0-1.0); %Eosinophils 1.5 % (0.0-10.0); %Lymphocytes 24.8 % (21.0-51.0); %Neutrophils 67.4 % (42.0-75.0); Hemoglobin 12.2 g/dL (14.0-18.0); Mean Corpuscular HGB CONC 32.7 g/dL (32.0-36.0); Mean Corpuscular Hemoglobin 35.5 pg (27.0-31.0); Mean Platelet Volume 9.6 fL (7.4-10.4); Platelet Count 191 thou/uL (130-400); RBC Distribution Width 20.8 % (11.5-14.5); Red Blood Cell (RBC) Count 3.44 mill/uL (4.70-6.10); White Blood Cell (WBC) Count 5.8 thou/uL (4.8-10.8)
[2019-10-01] MEDS: Cyanocobalamin (Vitamin B-12) 1,000 MCG TAB PO SCH (10:55)
[2019-10-01] MEDS: Lidocaine 5% Patch TD SCH (10:55)
[2019-10-01] MEDS: Aspirin 81 mg Enteric Coated Tablet PO SCH (10:55)
[2019-10-01] MEDS: hydrALAZINE 25 MG TAB PO SCH ×2 (10:56→21:36)
[2019-10-01] MEDS: Carvedilol 3.125 MG TAB PO SCH ×2 (10:56→21:35)
[2019-10-01] MEDS: Famotidine 20 MG TAB PO SCH (10:56)
[2019-10-01] MEDS: Folic Acid 1 MG TAB PO SCH (10:56)
[2019-10-01] MEDS: Calcium Carbonate 600 MG TAB PO SCH (10:57)
[2019-10-01] MEDS: Fludrocortisone Acetate 0.1 MG TAB PO SCH (10:57)
[2019-10-01] MEDS: Famotidine/PF 20 mg/2ml Vial SLOW IVP SCH (10:58)
[2019-10-01] MEDS: Raltegravir Potassium 400 MG TAB PO SCH ×2 (10:58→21:35)
[2019-10-01] MEDS: Sevelamer Carbonate 800 MG TAB PO SCH ×3 (10:58→16:29)
[2019-10-01] MEDS ORDERED: Vancomycin HCl 500 MG in Sodium Chloride 0.9% 100 ML IVPB SCH (13:45)
[2019-10-01] MEDS ORDERED: Vancomycin HCl 1 GM in Premix Bag 1 BAG IVPB SCH (13:45)
[2019-10-01] MEDS ORDERED: Vancomycin HCl 1.25 GM in Sodium Chloride 0.9% 250 ML 250 ML IVPB SCH (13:45)
[2019-10-01] MEDS ORDERED: HOLD VANCOMYCIN FOR LEVEL >20 FS SCH (13:45)
[2019-10-01] MEDS ORDERED: Vancomycin HCl 750 MG in Sodium Chloride 0.9% 250 ML 250 ML IVPB SCH (13:45)
[2019-10-01 16:23] LABS: Albumin 2.9 g/dL (3.4-4.8); Anion Gap 25 mmol/L (10-20); BUN (Urea Nitrogen) 76 mg/dL (8.4-25.7); BUN/Creatinine Ratio 17.63; Calc. Creatinine Clearance 17 mL/min (70-130); Calcium 8.4 mg/dL (7.8-10.44); Carbon Dioxide 18 mmol/L (23-31); Chloride 96 mmol/L (98-107); Estimated GFR-MDRD 17; Glucose 115 mg/dL (80-115); Phosphorus 8.3 mg/dL (2.3-4.7); Sodium 133 mmol/L (136-145)
--- NOTE | 2019-10-01 18:11 | PRG ---
DATE OF SERVICE: 10/01/2019 SUBJECTIVE: The patient was seen and examined, noted with the following vital signs. OBJECTIVE: VITAL SIGNS: Afebrile, temperature 97.8, pulse 81, blood pressure 121/83, O2 saturation of 98%. HEENT: Unremarkable. CARDIOVASCULAR SYSTEM: First and second heart sounds were heard. RESPIRATORY SYSTEM: Clear to auscultation. DIGESTIVE SYSTEM: Revealed a benign abdomen. EXTREMITIES: Show no peripheral edema. SKIN: No new gross rash. IMPRESSION: 1. End-stage renal disease. 2. Respiratory failure. 3. Sepsis. 4. Hyperkalemia. PLAN: Unfortunately, the patient did get only about 2 hours of dialysis today prior to infiltrating. Therefore, we will re-evaluate this patient's electrolyte tomorrow vis-a-vis the hyperkalemia. If the patient is hyperkalemic or fluid overloaded, dialysis tomorrow. Otherwise, continue current management. Job ID: [id number]
--- NOTE | 2019-10-01 19:42 | PRG ---
DATE OF SERVICE: 10/01/2019 SUBJECTIVE: The patient appears better today. His BiPAP mask has been removed this morning. He just has a nasal cannula and saturating 98%. Still a little bit tachypneic, but he feels comfortable. He was going to be dialyzed this morning again, but they have removed 2 L and had to interrupt dialysis because of infiltration at the AV fistula site tomorrow and another treatment will be attempted. OBJECTIVE: VITAL SIGNS: His temperature has remained within normal limits. LUNGS: Better aeration. HEART: S1 and S2, regular rate. ABDOMEN: Soft. Not distended or tender. NEUROLOGIC: He is awake and oriented. Follows commands. LABORATORY DATA: White cell count 5.8, hemoglobin 12, platelets 191. Creatinine 4.31 and sodium 133. Microbiology with negative two sets of blood cultures. ASSESSMENT AND DISCUSSION: End-stage renal disease, type 2 diabetes, and human immunodeficiency virus infection well controlled on antiretroviral therapy. The admission with likely volume overload, which seems to be improving clinically with daily dialysis. Recent influenza infection, which should have resolved, although he may still be excreting influenza virus. Job ID: [id number]
--- NOTE | 2019-10-01 19:58 | PRG ---
DATE OF SERVICE: 10/01/2019 SUBJECTIVE: Brant Villeda looked comfortable this morning. He had his BiPAP off. OBJECTIVE: VITAL SIGNS: Heart rate is in the 80s, blood pressure 126/75, and respiratory rate in the 20s. LUNGS: Remarkable for fine crackles at his bases. HEART: Regular rhythm. ABDOMEN: Soft. EXTREMITIES: Without edema. He has an amputation. LABORATORY DATA: White count 5.8, hemoglobin 12.2, and platelets 191. Potassium was 6 this morning, BUN 76, and creatinine 4.31. IMPRESSION: 1. Respiratory failure, that is recurrent, requiring BiPAP. 2. End-stage renal disease. 3. Suspected noncompliance with fluid restriction as an outpatient. 4. Human immunodeficiency virus positive, not felt to have an acute infection. 5. Extreme deconditioning contributing to his chronic recurrent shortness of breath. 6. History of esophageal cancer. I think his prognosis is dismal. Job ID: [id number]
--- NOTE | 2019-10-01 20:00 | PRG ---
DATE OF SERVICE: 10/01/2019 SUBJECTIVE: Brant Villeda was comfortable this morning. He was off BiPAP. OBJECTIVE: VITAL SIGNS: Blood pressure this evening is 133/81, heart rate is 84, respiratory rate in the 20s. LUNGS: Remarkable for coarse equal breath sounds. HEART: Regular rhythm. ABDOMEN: Soft. EXTREMITIES: Without edema. LABORATORY DATA: Potassium was 6 this morning, BUN 76, creatinine 4.31. Potassium was repeated and was still 6. IMPRESSION: 1. Renal failure. 2. Respiratory failure with recurrent need for BiPAP. 3. Human immunodeficiency virus positive, not felt to have an immunocompromised host infection. 4. Pulmonary edema. 5. Extreme deconditioning after his amputation. Lot of his problems, I believe, are related to weakness and inability to clear secretions effectively. I also believe he is intermittently aspirating secondary to his weakness. His prognosis is dismal. Job ID: [id number]
[2019-10-01] MEDS: Pravastatin Sodium 20 MG TAB PO SCH (21:35)
[2019-10-01] MEDS: Gabapentin 300 MG CAP PO SCH (21:35)
[2019-10-01] MEDS: Melatonin 3 MG TAB PO SCH (21:35)
[2019-10-01] MEDS: Nortriptyline HCl 25 MG CAP PO SCH (21:36)
[2019-10-01] MEDS: Lidocaine Patch Removal 1 EACH TOP SCH (22:00)
[2019-10-01] MEDS: Acetaminophen 325 MG TAB PO PRN (22:32)
[2019-10-02] MEDS: methylPREDNISolone Sod Succ 40 MG VIAL IVP SCH ×4 (00:26→17:21)
[2019-10-02 01:25] LABS: Vancomycin, Trough 20.6 ug/mL
[2019-10-02] MEDS: Meropenem 500 MG in Sodium Chloride 0.9% 100 ML IVPB SCH ×2 (04:53→17:20)
[2019-10-02 07:47] LABS: Hemoglobin 12.2 g/dL (14.0-18.0); Mean Corpuscular HGB CONC 31.9 g/dL (32.0-36.0); Mean Corpuscular Hemoglobin 35.3 pg (27.0-31.0); Mean Platelet Volume 9.3 fL (7.4-10.4); Platelet Count 178 thou/uL (130-400); RBC Distribution Width 21.6 % (11.5-14.5); Red Blood Cell (RBC) Count 3.47 mill/uL (4.70-6.10); White Blood Cell (WBC) Count 5.3 thou/uL (4.8-10.8)
[2019-10-02 07:50] LABS: MDiff Complete? YES
[2019-10-02 07:59] LABS: Anion Gap 20 mmol/L (10-20); BUN (Urea Nitrogen) 60 mg/dL (8.4-25.7); Calc. Creatinine Clearance 20 mL/min (70-130); Calcium 8.8 mg/dL (7.8-10.44); Carbon Dioxide 23 mmol/L (23-31); Chloride 96 mmol/L (98-107); Estimated GFR-MDRD 20; Glucose 112 mg/dL (80-115); Potassium 5.2 mmol/L (3.5-5.1); Sodium 134 mmol/L (136-145)
[2019-10-02 08:43] LABS: Band 2 % (5-11); Lymphocytes 13 % (21-51); Monocytes 8 % (0-10); Neutrophil 77 % (42-75)
[2019-10-02 08:44] LABS: Macrocytosis SLIGHT = 6-15 cells (100X) (0-5/hpf); Platelet Morphology Comment Appears Adequate; Polychromasia SLIGHT = 2-3 cells (100X) (0-2/hpf)
[2019-10-02] MEDS: Famotidine 20 MG TAB PO SCH (09:17)
[2019-10-02] MEDS: Raltegravir Potassium 400 MG TAB PO SCH ×2 (09:17→21:12)
[2019-10-02] MEDS: Fludrocortisone Acetate 0.1 MG TAB PO SCH (09:17)
[2019-10-02] MEDS: Aspirin 81 mg Enteric Coated Tablet PO SCH (09:17)
[2019-10-02] MEDS: Carvedilol 3.125 MG TAB PO SCH ×2 (09:17→21:10)
[2019-10-02] MEDS: Folic Acid 1 MG TAB PO SCH (09:17)
[2019-10-02] MEDS: Cyanocobalamin (Vitamin B-12) 1,000 MCG TAB PO SCH (09:17)
[2019-10-02] MEDS: hydrALAZINE 25 MG TAB PO SCH ×2 (09:17→21:10)
[2019-10-02] MEDS: Calcium Carbonate 600 MG TAB PO SCH (09:17)
[2019-10-02] MEDS: Lidocaine 5% Patch TD SCH (09:17)
[2019-10-02] MEDS: Sevelamer Carbonate 800 MG TAB PO SCH ×3 (09:17→17:21)
[2019-10-02] MEDS: Famotidine/PF 20 mg/2ml Vial SLOW IVP SCH (09:18)
--- NOTE | 2019-10-02 15:39 | PDOC.HOSPP ---
- Subjective Encounter Date: 10/01/19 Encounter Time: 10:15 Subjective: pt off bipap is doing well. He expresses to me that he want to go to hospice and does not want to go back to [facility]. - Objective Vital Signs & Weight: Vital Signs (12 hours) Temp Pulse Resp Pulse Ox 10/02/19 15:14 97.2 F L 10/02/19 15:11 73 10/02/19 15:08 74 21 H 97 10/02/19 11:15 98.7 F 10/02/19 10:39 84 24 H 95 10/02/19 09:17 79 10/02/19 08:00 98 10/02/19 07:15 98.1 F 10/02/19 06:48 79 23 H 96 10/02/19 03:39 98.3 F Weight Weight 155 lb 6.814 oz Most Recent Monitor Data Heart Rate from ECG 74 NIBP 122/82 NIBP BP-Mean 95 Respiration from ECG 21 SpO2 100 I&O: 10/01/19 10/02/19 10/03/19 06:59 06:59 06:59 Intake Total 1600 960 Output Total 2750 Balance -1150 960 Result Diagrams: 10/02/19 07:38 10/02/19 07:38 Additional Labs: Accuchecks 10/02/19 10/02/19 10/01/19 10:36 05:41 19:52 POC Glucose 131 H 103 118 H 10/01/19 16:29 POC Glucose 138 H Hospitalist ROS - Review of Systems Cardiovascular: denies: chest pain, palpitations, orthopnea, paroxysmal noc. dyspnea, edema, light headedness, other Gastrointestinal: denies: nausea, vomiting, abdominal pain, diarrhea, constipation, melena, hematochezia, other Genitourinary: denies: dysuria, frequency, incontinence, hematuria, retention, other - Medication Medications: Active Medications Generic Name Dose Route Start Last Admin Trade Name Freq PRN Reason Stop Dose Admin Acetaminophen 650 mg 09/29/19 03:52 10/01/19 22:32 Tylenol PO 650 mg Q4H PRN Administration Headache/Fever/Mild Pain (1-3) Albuterol/Ipratropium 3 ml 09/29/19 06:30 10/02/19 15:08 Duoneb NEB 3 ml [id number] ESME Administration Aspirin 81 mg 09/29/19 09:00 10/02/19 09:17 Ecotrin PO 81 mg DAILY ESME Administration Calcium Carbonate 600 mg 09/30/19 09:00 10/02/19 09:17 Caltrate PO 600 mg DAILY ESME Administration Carvedilol 3.125 mg 09/29/19 21:00 10/02/19 09:17 Coreg PO 3.125 mg BID ESME Administration Cyanocobalamin 1,000 mcg 09/30/19 09:00 10/02/19 09:17 Vitamin B-12 PO 1,000 mcg DAILY ESME Administration Docusate Sodium 100 mg 09/29/19 09:21 10/01/19 21:35 Colace PO 100 mg DAILY PRN Administration Constipation Etravirine 200 mg 09/29/19 18:00 10/02/19 09:16 Intelence PO 200 mg BID-PC ESME Administration Famotidine 20 mg 09/29/19 09:00 10/02/19 09:18 Pepcid SLOW IVP Not Given 09 ESME Famotidine 20 mg 09/29/19 09:00 10/02/19 09:17 Pepcid PO 20 mg 0900 ESME Administration Fludrocortisone Acetate 0.1 mg 09/30/19 09:00 10/02/19 09:17 Florinef PO 0.1 mg DAILY ESME Administration Folic Acid 1 mg 09/30/19 09:00 10/02/19 09:17 Folvite PO 1 mg DAILY ESME Administration Gabapentin 300 mg 09/29/19 21:00 10/01/19 21:35 Neurontin PO 300 mg HS ESME Administration Hydralazine HCl 25 mg 09/29/19 21:00 10/02/19 09:17 Apresoline PO 25 mg BID ESME Administration Meropenem 500 mg/ Sodium 100 mls @ 200 mls/hr 10/01/19 04:00 10/02/19 04:53 Chloride IVPB 100 mls 0400,1600 ESME Administration Lidocaine 1 patch 09/30/19 09:00 10/02/19 09:17 Lidoderm 5% Patch TD 1 patch Q24HR ESME Administration Melatonin 9 mg 09/29/19 21:00 10/01/19 21:35 Melatonin PO 9 mg HS ESME Administration Methylprednisolone Sodium Succinate 40 mg 09/29/19 12:00 10/02/19 13:42 Solu-Medrol IVP 40 mg Q6HR ESME Administration Miscellaneous Medication 1 each 09/29/19 21:00 10/01/19 22:00 Lidocaine Patch Removal TOP 1 each 2100 ESME Administration Nortriptyline HCl 25 mg 09/29/19 21:00 10/01/19 21:36 Pamelor PO 25 mg HS ESME Administration Pantoprazole Sodium 40 mg 09/30/19 09:00 10/02/19 09:17 Protonix PO 40 mg DAILY ESME Administration Pravastatin Sodium 5 mg 09/29/19 21:00 10/01/19 21:35 Pravachol PO 5 mg HS ESME Administration Raltegravir 400 mg 09/29/19 21:00 10/02/19 09:17 Isentress PO 400 mg BID ESME Administration Sevelamer Carbonate 800 mg 09/29/19 12:00 10/02/19 13:43 Renvela PO 800 mg TID-WM ESME Administration Zidovudine 100 mg 09/29/19 14:00 10/02/19 13:42 Retrovir PO 100 mg Q8HR ESME Administration - Exam Heart: negative: RRR, no murmur, no gallops, no rubs, normal peripheral pulses, irregular, diminshed peripheral pulses, murmur present, II/IV, III/IV Respiratory: negative: CTAB, no wheezes, no rales, no ronchi, normal chest expansion, no tachypnea, normal percussion, rales, rhonchi, tachypneic, wheezes Gastrointestinal: negative: soft, non-tender, non-distended, normal bowel sounds , no palpable masses, no hepatomegaly, no splenomegaly, no bruit, no guarding, no rigidity, tender to palpation, distended, diminished bowl sounds, voluntary guarding Extremities - other findings: left ext dialysis cath Hosp A/P (1) Acute on chronic respiratory failure with hypoxemia Code(s): J96.21 - ACUTE AND CHRONIC RESPIRATORY FAILURE WITH HYPOXIA Status: Acute (2) DM (diabetes mellitus) Code(s): E11.9 - TYPE 2 DIABETES MELLITUS WITHOUT COMPLICATIONS Status: Chronic (3) ESRD (end stage renal disease) on dialysis Code(s): N18.6 - END STAGE RENAL DISEASE; Z99.2 - DEPENDENCE ON RENAL DIALYSIS Status: Chronic (4) HIV (human immunodeficiency virus infection) Code(s): B20 - HUMAN IMMUNODEFICIENCY VIRUS [HIV] DISEASE Status: Chronic Qualifiers: (5) Moderate protein malnutrition Code(s): E44.0 - MODERATE PROTEIN-CALORIE MALNUTRITION Status: Chronic (6) Acute metabolic encephalopathy Code(s): G93.41 - METABOLIC ENCEPHALOPATHY Status: Resolved (7) NSTEMI (non-ST elevated myocardial infarction) Code(s): I21.4 - NON-ST ELEVATION (NSTEMI) MYOCARDIAL INFARCTION Status: Resolved - Plan pt needs to be back on bipap. His last cb4 count was in the 's He will need pcp and mac ppx. Not sure if he is taking his meds. will check ldh, his A-a gradient is high. will also get ID. pt is on broad spectrum abx and has had multiple admissions this month. His elevated trop is most likely demand related. 09/30 pt on broad spectrum abx. ESRD on dialysis. He is on antivirals. palliative care to meet with family for change in code status. 10/01 pt up in bed very alert and oriented and wants to go to hospice. will continue abx for now. [facility] home health has been consulted who is working with the pt and family for hospice.
--- NOTE | 2019-10-02 15:42 | PDOC.HOSPP ---
- Subjective Encounter Date: 10/02/19 Encounter Time: 11:30 Subjective: pt up in bed on bipap, is drowsy but arousable - Objective Vital Signs & Weight: Vital Signs (12 hours) Temp Pulse Resp Pulse Ox 10/02/19 15:14 97.2 F L 10/02/19 15:11 73 10/02/19 15:08 74 21 H 97 10/02/19 11:15 98.7 F 10/02/19 10:39 84 24 H 95 10/02/19 09:17 79 10/02/19 08:00 98 10/02/19 07:15 98.1 F 10/02/19 06:48 79 23 H 96 Weight Weight 155 lb 6.814 oz Most Recent Monitor Data Heart Rate from ECG 74 NIBP 122/82 NIBP BP-Mean 95 Respiration from ECG 21 SpO2 100 I&O: 10/01/19 10/02/19 10/03/19 06:59 06:59 06:59 Intake Total 1600 960 Output Total 2750 Balance -1150 960 Result Diagrams: 10/02/19 07:38 10/02/19 07:38 Additional Labs: Accuchecks 10/02/19 10/02/19 10/01/19 10:36 05:41 19:52 POC Glucose 131 H 103 118 H 10/01/19 16:29 POC Glucose 138 H Hospitalist ROS - Review of Systems Cardiovascular: denies: chest pain, palpitations, orthopnea, paroxysmal noc. dyspnea, edema, light headedness, other Gastrointestinal: denies: nausea, vomiting, abdominal pain, diarrhea, constipation, melena, hematochezia, other Genitourinary: denies: dysuria, frequency, incontinence, hematuria, retention, other - Medication Medications: Active Medications Generic Name Dose Route Start Last Admin Trade Name Freq PRN Reason Stop Dose Admin Acetaminophen 650 mg 09/29/19 03:52 10/01/19 22:32 Tylenol PO 650 mg Q4H PRN Administration Headache/Fever/Mild Pain (1-3) Albuterol/Ipratropium 3 ml 09/29/19 06:30 10/02/19 15:08 Duoneb NEB 3 ml [id number] ESME Administration Aspirin 81 mg 09/29/19 09:00 10/02/19 09:17 Ecotrin PO 81 mg DAILY ESME Administration Calcium Carbonate 600 mg 09/30/19 09:00 10/02/19 09:17 Caltrate PO 600 mg DAILY ESME Administration Carvedilol 3.125 mg 09/29/19 21:00 10/02/19 09:17 Coreg PO 3.125 mg BID ESME Administration Cyanocobalamin 1,000 mcg 09/30/19 09:00 10/02/19 09:17 Vitamin B-12 PO 1,000 mcg DAILY ESME Administration Docusate Sodium 100 mg 09/29/19 09:21 10/01/19 21:35 Colace PO 100 mg DAILY PRN Administration Constipation Etravirine 200 mg 09/29/19 18:00 10/02/19 09:16 Intelence PO 200 mg BID-PC ESME Administration Famotidine 20 mg 09/29/19 09:00 10/02/19 09:18 Pepcid SLOW IVP Not Given 0900 ESME Famotidine 20 mg 09/29/19 09:00 10/02/19 09:17 Pepcid PO 20 mg 0900 ESME Administration Fludrocortisone Acetate 0.1 mg 09/30/19 09:00 10/02/19 09:17 Florinef PO 0.1 mg DAILY ESME Administration Folic Acid 1 mg 09/30/19 09:00 10/02/19 09:17 Folvite PO 1 mg DAILY ESME Administration Gabapentin 300 mg 09/29/19 21:00 10/01/19 21:35 Neurontin PO 300 mg HS ESME Administration Hydralazine HCl 25 mg 09/29/19 21:00 10/02/19 09:17 Apresoline PO 25 mg BID ESME Administration Meropenem 500 mg/ Sodium 100 mls @ 200 mls/hr 10/01/19 04:00 10/02/19 04:53 Chloride IVPB 100 mls 0400,1600 ESME Administration Lidocaine 1 patch 09/30/19 09:00 10/02/19 09:17 Lidoderm 5% Patch TD 1 patch Q24HR ESME Administration Melatonin 9 mg 09/29/19 21:00 10/01/19 21:35 Melatonin PO 9 mg HS ESME Administration Methylprednisolone Sodium Succinate 40 mg 09/29/19 12:00 10/02/19 13:42 Solu-Medrol IVP 40 mg Q6HR ESME Administration Miscellaneous Medication 1 each 09/29/19 21:00 10/01/19 22:00 Lidocaine Patch Removal TOP 1 each 2100 ESME Administration Nortriptyline HCl 25 mg 09/29/19 21:00 10/01/19 21:36 Pamelor PO 25 mg HS ESME Administration Pantoprazole Sodium 40 mg 09/30/19 09:00 10/02/19 09:17 Protonix PO 40 mg DAILY ESME Administration Pravastatin Sodium 5 mg 09/29/19 21:00 10/01/19 21:35 Pravachol PO 5 mg HS ESME Administration Raltegravir 400 mg 09/29/19 21:00 10/02/19 09:17 Isentress PO 400 mg BID ESME Administration Sevelamer Carbonate 800 mg 09/29/19 12:00 10/02/19 13:43 Renvela PO 800 mg TID-WM ESME Administration Zidovudine 100 mg 09/29/19 14:00 10/02/19 13:42 Retrovir PO 100 mg Q8HR ESME Administration - Exam Neck: negative: supple, symmetric, no JVD, no thyromegaly, no lymphadenopathy, no carotid bruit, JVD Respiratory: negative: CTAB, no wheezes, no rales, no ronchi, normal chest expansion, no tachypnea, normal percussion, rales, rhonchi, tachypneic, wheezes Gastrointestinal: negative: soft, non-tender, non-distended, normal bowel sounds , no palpable masses, no hepatomegaly, no splenomegaly, no bruit, no guarding, no rigidity, tender to palpation, distended, diminished bowl sounds, voluntary guarding Extremities: negative: no cyanosis, no clubbing, no edema, 1+ LE edema, 2+ LE edema, clubbing Hosp A/P (1) Acute on chronic respiratory failure with hypoxemia Code(s): J96.21 - ACUTE AND CHRONIC RESPIRATORY FAILURE WITH HYPOXIA Status: Acute (2) DM (diabetes mellitus) Code(s): E11.9 - TYPE 2 DIABETES MELLITUS WITHOUT COMPLICATIONS Status: Chronic (3) ESRD (end stage renal disease) on dialysis Code(s): N18.6 - END STAGE RENAL DISEASE; Z99.2 - DEPENDENCE ON RENAL DIALYSIS Status: Chronic (4) HIV (human immunodeficiency virus infection) Code(s): B20 - HUMAN IMMUNODEFICIENCY VIRUS [HIV] DISEASE Status: Chronic Qualifiers: (5) Moderate protein malnutrition Code(s): E44.0 - MODERATE PROTEIN-CALORIE MALNUTRITION Status: Chronic (6) Acute metabolic encephalopathy Code(s): G93.41 - METABOLIC ENCEPHALOPATHY Status: Resolved (7) NSTEMI (non-ST elevated myocardial infarction) Code(s): I21.4 - NON-ST ELEVATION (NSTEMI) MYOCARDIAL INFARCTION Status: Resolved - Plan pt needs to be back on bipap. His last cb4 count was in the 90's He will need pcp and mac ppx. Not sure if he is taking his meds. will check ldh, his A-a gradient is high. will also get ID. pt is on broad spectrum abx and has had multiple admissions this month. His elevated trop is most likely demand related. 09/30 pt on broad spectrum abx. ESRD on dialysis. He is on antivirals. palliative care to meet with family for change in code status. 10/01 pt up in bed very alert and oriented and wants to go to hospice. will continue abx for now. [facility] health has been consulted who is working with the pt and family for hospice. 10/02 will continue current tx, will need to await hospice eval.
--- NOTE | 2019-10-02 17:43 | PRG ---
DATE OF SERVICE: 10/02/2019 SUBJECTIVE: The patient was seen and examined, noted with the following vital signs. OBJECTIVE: VITAL SIGNS: Afebrile, temperature 97.2, pulse 73, respiratory rate of 21, blood pressure 123/82, and O2 saturation of 97%. HEENT: Unremarkable. CARDIOVASCULAR: First and second heart sounds were heard. RESPIRATORY: Clear to auscultation. DIGESTIVE: Revealed a benign abdomen. EXTREMITIES: No peripheral edema. LYMPHATICS: No peripheral lymphadenopathy. LABORATORY INVESTIGATION: Showed a potassium of 5.2. IMPRESSION: 1. End-stage renal disease. 2. Respiratory failure, improved. 3. Sepsis. 4. Mild hyperkalemia. PLAN: 1. The patient to be dialyzed tomorrow in accordance with schedule of Monday, , and Monday. 2. Further management to be dependent on the clinical course. Job ID: [id number]
--- NOTE | 2019-10-02 20:19 | PRG ---
DATE OF SERVICE: 10/02/2019 SUBJECTIVE: Brant Villeda continues on BiPAP. OBJECTIVE: VITAL SIGNS: He is afebrile. Heart rate is , respiratory rate 22, oximetry is 97%, blood pressure 144/84. LUNGS: Remarkable for coarse equal breath sounds. HEART: Regular rhythm. ABDOMEN: Soft. LABORATORY DATA: White count 5.3, hemoglobin 12.7, platelets 178. Sodium 134, potassium 5.2, chloride 96, bicarb 23, BUN 60, creatinine 3.7. IMPRESSION: 1. End-stage renal disease. 2. Status post amputation of left lower extremity. 3. Extreme deconditioning. 4. Esophageal cancer. 5. ? History of aspiration recently leading to respiratory distress. 6. Volume overload this admission leading to respiratory distress. We will check a chest x-ray in the morning. Continue supportive care. His prognosis is dismal the hospital. Job ID: [id number]
[2019-10-02] MEDS: Gabapentin 300 MG CAP PO SCH (21:10)
[2019-10-02] MEDS: Pravastatin Sodium 20 MG TAB PO SCH (21:11)
[2019-10-02] MEDS: Melatonin 3 MG TAB PO SCH (21:11)
[2019-10-02] MEDS: Lidocaine Patch Removal 1 EACH TOP SCH (21:11)
[2019-10-02] MEDS: Nortriptyline HCl 25 MG CAP PO SCH (21:12)
[2019-10-03] MEDS: methylPREDNISolone Sod Succ 40 MG VIAL IVP SCH ×5 (00:03→23:35)
[2019-10-03] MEDS: Meropenem 500 MG in Sodium Chloride 0.9% 100 ML IVPB SCH ×2 (04:43→18:18)
[2019-10-03] MEDS: Acetaminophen/Codeine 30-300mg Tablet PO PRN ×2 (04:44→23:41)
--- NOTE | 2019-10-03 07:46 | RAD ---
Portable frontal chest radiograph: 10/03/2019 COMPARISON: 09/30/2019 HISTORY: End-stage renal disease Reevaluate pulmonary parenchymal opacity FINDINGS: The patient is rotated to the right. There is increased density in the left paratracheal re gion which may signify volume loss or vascular prominence. There is dense consolidative change within both lung bases with probable associated small bilateral pleural effusions. Aeration within th e left lung base has slightly improved. IMPRESSION: Bibasilar consolidation as above.
[2019-10-03] MEDS: Raltegravir Potassium 400 MG TAB PO SCH ×2 (08:09→20:20)
[2019-10-03] MEDS: Aspirin 81 mg Enteric Coated Tablet PO SCH (08:09)
[2019-10-03] MEDS: Famotidine 20 MG TAB PO SCH (08:09)
[2019-10-03] MEDS: Carvedilol 3.125 MG TAB PO SCH ×2 (08:09→20:19)
[2019-10-03] MEDS: Folic Acid 1 MG TAB PO SCH (08:09)
[2019-10-03] MEDS: Calcium Carbonate 600 MG TAB PO SCH (08:10)
[2019-10-03] MEDS: Sevelamer Carbonate 800 MG TAB PO SCH ×3 (08:10→18:18)
[2019-10-03] MEDS: hydrALAZINE 25 MG TAB PO SCH ×2 (08:10→20:19)
[2019-10-03] MEDS: Cyanocobalamin (Vitamin B-12) 1,000 MCG TAB PO SCH (08:10)
[2019-10-03] MEDS: Fludrocortisone Acetate 0.1 MG TAB PO SCH (08:10)
[2019-10-03] MEDS: Famotidine/PF 20 mg/2ml Vial SLOW IVP SCH (08:18)
[2019-10-03] MEDS: Lidocaine 5% Patch TD SCH (08:19)
[2019-10-03 09:20] LABS: Vancomycin, Random 19.9 ug/mL (See Comment)
--- NOTE | 2019-10-03 15:20 | PDOC.HOSPP ---
- Subjective Encounter Date: 10/03/19 Encounter Time: 10:15 Subjective: pt up in bed on bipap - Objective Vital Signs & Weight: Vital Signs (12 hours) Temp Pulse Resp Pulse Ox 10/03/19 14:29 86 28 H 92 L 10/03/19 11:15 96.7 F L 10/03/19 10:59 72 10/03/19 10:57 71 16 96 10/03/19 08:10 93 10/03/19 08:00 95 10/03/19 07:32 93 10/03/19 07:31 89 18 91 L 10/03/19 07:10 97.6 F 10/03/19 03:41 97.8 F Weight Weight 155 lb 6.814 oz Most Recent Monitor Data Heart Rate from ECG 88 NIBP 125/72 NIBP BP-Mean 89 Respiration from ECG 24 SpO2 90 I&O: 10/02/19 10/03/19 10/04/19 06:59 06:59 06:59 Intake Total 960 100 Balance 960 100 Result Diagrams: 10/02/19 07:38 10/02/19 07:38 Additional Labs: Accuchecks 10/03/19 10/03/19 10/02/19 10:33 05:46 19:52 POC Glucose 156 H 129 H 133 H 10/02/19 17:03 POC Glucose 119 H Hospitalist ROS - Review of Systems Respiratory: denies: cough, dry, shortness of breath, hemoptysis, SOB with excertion, pleuritic pain, sputum, wheezing, other Cardiovascular: denies: chest pain, palpitations, orthopnea, paroxysmal noc. dyspnea, edema, light headedness, other Gastrointestinal: denies: nausea, vomiting, abdominal pain, diarrhea, constipation, melena, hematochezia, other - Medication Medications: Active Medications Generic Name Dose Route Start Last Admin Trade Name Freq PRN Reason Stop Dose Admin Acetaminophen 650 mg 09/29/19 03:52 10/01/19 22:32 Tylenol PO 650 mg Q4H PRN Administration Headache/Fever/Mild Pain (1-3) Acetaminophen/Codeine Phosphate 1 tab 10/02/19 22:32 10/03/19 04:44 Tylenol #3 PO 1 tab Q6HR PRN Administration Pain Albuterol/Ipratropium 3 ml 09/29/19 06:30 10/03/19 14:29 Duoneb NEB 3 ml [id number] ESME Administration Aspirin 81 mg 09/29/19 09:00 10/03/19 08:09 Ecotrin PO 81 mg DAILY ESME Administration Calcium Carbonate 600 mg 09/30/19 09:00 10/03/19 08:10 Caltrate PO 600 mg DAILY ESME Administration Carvedilol 3.125 mg 09/29/19 21:00 10/03/19 08:09 Coreg PO 3.125 mg BID ESME Administration Cyanocobalamin 1,000 mcg 09/30/19 09:00 10/03/19 08:10 Vitamin B-12 PO 1,000 mcg DAILY ESME Administration Docusate Sodium 100 mg 09/29/19 09:21 10/01/19 21:35 Colace PO 100 mg DAILY PRN Administration Constipation Etravirine 200 mg 09/29/19 18:00 10/03/19 08:09 Intelence PO 200 mg BID-PC ESME Administration Famotidine 20 mg 09/29/19 09:00 10/03/19 08:18 Pepcid SLOW IVP Not Given 09 ESME Famotidine 20 mg 09/29/19 09:00 10/03/19 08:09 Pepcid PO 20 mg 0900 ESME Administration Fludrocortisone Acetate 0.1 mg 09/30/19 09:00 10/03/19 08:10 Florinef PO 0.1 mg DAILY ESME Administration Folic Acid 1 mg 09/30/19 09:00 10/03/19 08:09 Folvite PO 1 mg DAILY ESME Administration Gabapentin 300 mg 09/29/19 21:00 10/02/19 21:10 Neurontin PO 300 mg HS ESME Administration Hydralazine HCl 25 mg 09/29/19 21:00 10/03/19 08:10 Apresoline PO 25 mg BID ESME Administration Meropenem 500 mg/ Sodium 100 mls @ 200 mls/hr 10/01/19 04:00 10/03/19 04:43 Chloride IVPB 100 mls 0400,1600 ESME Administration Lidocaine 1 patch 09/30/19 09:00 10/03/19 08:19 Lidoderm 5% Patch TD 1 patch Q24HR ESME Administration Melatonin 9 mg 09/29/19 21:00 10/02/19 21:11 Melatonin PO 9 mg HS ESME Administration Methylprednisolone Sodium Succinate 40 mg 09/29/19 12:00 10/03/19 13:34 Solu-Medrol IVP 40 mg Q6HR ESME Administration Miscellaneous Medication 1 each 09/29/19 21:00 10/02/19 21:11 Lidocaine Patch Removal TOP 1 each 2100 ESME Administration Nortriptyline HCl 25 mg 09/29/19 21:00 10/02/19 21:12 Pamelor PO 25 mg HS ESME Administration Pantoprazole Sodium 40 mg 09/30/19 09:00 10/03/19 08:09 Protonix PO 40 mg DAILY ESME Administration Pravastatin Sodium 5 mg 09/29/19 21:00 10/02/19 21:11 Pravachol PO 5 mg HS ESME Administration Raltegravir 400 mg 09/29/19 21:00 10/03/19 08:09 Isentress PO 400 mg BID ESME Administration Sevelamer Carbonate 800 mg 09/29/19 12:00 10/03/19 13:34 Renvela PO 800 mg TID-WM ESME Administration Zidovudine 100 mg 09/29/19 14:00 10/03/19 13:34 Retrovir PO 100 mg Q8HR ESME Administration - Exam Heart: negative: RRR, no murmur, no gallops, no rubs, normal peripheral pulses, irregular, diminshed peripheral pulses, murmur present, II/IV, III/IV Respiratory: negative: CTAB, no wheezes, no rales, no ronchi, normal chest expansion, no tachypnea, normal percussion, rales, rhonchi, tachypneic, wheezes Gastrointestinal: negative: soft, non-tender, non-distended, normal bowel sounds , no palpable masses, no hepatomegaly, no splenomegaly, no bruit, no guarding, no rigidity, tender to palpation, distended, diminished bowl sounds, voluntary guarding Extremities: negative: no cyanosis, no clubbing, no edema, 1+ LE edema, 2+ LE edema, clubbing Hosp A/P (1) Acute on chronic respiratory failure with hypoxemia Code(s): J96.21 - ACUTE AND CHRONIC RESPIRATORY FAILURE WITH HYPOXIA Status: Acute (2) DM (diabetes mellitus) Code(s): E11.9 - TYPE 2 DIABETES MELLITUS WITHOUT COMPLICATIONS Status: Chronic (3) ESRD (end stage renal disease) on dialysis Code(s): N18.6 - END STAGE RENAL DISEASE; Z99.2 - DEPENDENCE ON RENAL DIALYSIS Status: Chronic (4) HIV (human immunodeficiency virus infection) Code(s): B20 - HUMAN IMMUNODEFICIENCY VIRUS [HIV] DISEASE Status: Chronic Qualifiers: (5) Moderate protein malnutrition Code(s): E44.0 - MODERATE PROTEIN-CALORIE MALNUTRITION Status: Chronic (6) Acute metabolic encephalopathy Code(s): G93.41 - METABOLIC ENCEPHALOPATHY Status: Resolved (7) NSTEMI (non-ST elevated myocardial infarction) Code(s): I21.4 - NON-ST ELEVATION (NSTEMI) MYOCARDIAL INFARCTION Status: Resolved - Plan pt needs to be back on bipap. His last cb4 count was in the 's He will need pcp and mac ppx. Not sure if he is taking his meds. will check ldh, his A-a gradient is high. will also get ID. pt is on broad spectrum abx and has had multiple admissions this month. His elevated trop is most likely demand related. 09/30 pt on broad spectrum abx. ESRD on dialysis. He is on antivirals. palliative care to meet with family for change in code status. 10/01 pt up in bed very alert and oriented and wants to go to hospice. will continue abx for now. [facility] has been consulted who is working with the pt and family for hospice. 10/02 will continue current tx, will need to await hospice eval. 10/03 pt is on bipap, on abx, esrd on dialysis. will continue antivirals.
--- NOTE | 2019-10-03 16:30 | PRG ---
DATE OF SERVICE: 10/03/2019 SUBJECTIVE: The patient was seen and examined. Noted with the following vital signs. OBJECTIVE: VITAL SIGNS: Afebrile, temperature 97.9, pulse 86, respiratory rate of 28, O2 saturation 93%, and blood pressure 125/72. HEENT: Unremarkable. CARDIOVASCULAR: First and second heart sounds were heard. RESPIRATORY: Clear to auscultation. DIGESTIVE SYSTEM: Revealed a benign abdomen. EXTREMITIES: No peripheral edema. SKIN: No new gross rash. LYMPHATICS: No peripheral lymphadenopathy. IMPRESSION: 1. End-stage renal disease. 2. Failure to thrive. 3. Sepsis. 4. Respiratory failure. PLAN: 1. The patient is undergoing dialysis today with ultrafiltration as tolerated by hemodynamics. 2. Further management to be dependent on the clinical course. Job ID: [id number]
--- NOTE | 2019-10-03 17:28 | PRG ---
DATE OF SERVICE: 10/03/2019 SUBJECTIVE: Brant Villeda says he feels about the same. He does not have BiPAP on. OBJECTIVE: VITAL SIGNS: He is afebrile, heart rate is in the 80s, respiratory rate is in the 20s, oximetry is 92% on 3 L. LUNGS: Remarkable for crackles at both lung bases. HEART: Regular rhythm. ABDOMEN: Soft. EXTREMITIES: Asymmetry above the knee. He still has amputation obviously that is well healed. IMAGING STUDIES: Chest radiograph still shows bibasilar infiltrates which I suspect is volume related. He has not been weighed since the . IMPRESSION: 1. Volume overload. 2. End-stage renal disease. 3. Extreme deconditioning. 4. Status post 1 lower extremity amputation. 5. History of esophageal cancer. 6. Probable aspiration. 7. Requirements for BiPAP. PLAN: Continue supportive care. Prognosis is dismal. Job ID: [id number]
[2019-10-03] MEDS: Gabapentin 300 MG CAP PO SCH (20:18)
[2019-10-03] MEDS: Pravastatin Sodium 20 MG TAB PO SCH (20:18)
[2019-10-03] MEDS: Melatonin 3 MG TAB PO SCH (20:19)
[2019-10-03] MEDS: Nortriptyline HCl 25 MG CAP PO SCH (20:20)
[2019-10-03] MEDS: Lidocaine Patch Removal 1 EACH TOP SCH (20:22)
[2019-10-04] MEDS: Meropenem 500 MG in Sodium Chloride 0.9% 100 ML IVPB SCH ×2 (04:19→16:45)
[2019-10-04] MEDS: methylPREDNISolone Sod Succ 40 MG VIAL IVP SCH ×3 (05:10→17:02)
[2019-10-04] MEDS: Raltegravir Potassium 400 MG TAB PO SCH ×2 (08:53→21:05)
[2019-10-04] MEDS: Carvedilol 3.125 MG TAB PO SCH ×2 (08:54→21:00)
[2019-10-04] MEDS: Aspirin 81 mg Enteric Coated Tablet PO SCH (08:54)
[2019-10-04] MEDS: Folic Acid 1 MG TAB PO SCH (08:54)
[2019-10-04] MEDS: hydrALAZINE 25 MG TAB PO SCH ×2 (08:54→21:01)
[2019-10-04] MEDS: Cyanocobalamin (Vitamin B-12) 1,000 MCG TAB PO SCH (08:54)
[2019-10-04] MEDS: Sevelamer Carbonate 800 MG TAB PO SCH ×3 (08:54→16:45)
[2019-10-04] MEDS: Calcium Carbonate 600 MG TAB PO SCH (08:54)
[2019-10-04] MEDS: Famotidine 20 MG TAB PO SCH (08:55)
[2019-10-04] MEDS: Fludrocortisone Acetate 0.1 MG TAB PO SCH (08:55)
[2019-10-04] MEDS: Lidocaine 5% Patch TD SCH (08:55)
[2019-10-04] MEDS: Famotidine/PF 20 mg/2ml Vial SLOW IVP SCH (08:55)
[2019-10-04] MEDS: Acetaminophen/Codeine 30-300mg Tablet PO PRN ×2 (11:54→21:47)
[2019-10-04] MEDS: Gabapentin 300 MG CAP PO SCH (21:00)
[2019-10-04] MEDS: Nortriptyline HCl 25 MG CAP PO SCH (21:05)
[2019-10-04] MEDS: Melatonin 3 MG TAB PO SCH (21:05)
[2019-10-04] MEDS: Pravastatin Sodium 20 MG TAB PO SCH (21:05)
[2019-10-04] MEDS: Lidocaine Patch Removal 1 EACH TOP SCH (21:06)
--- NOTE | 2019-10-04 21:20 | PRG ---
DATE OF SERVICE: 10/04/2019 SUBJECTIVE: The patient was seen and examined, noted with the following vital signs. OBJECTIVE: VITAL SIGNS: Afebrile, temperature 97.8, pulse 80, respiratory rate of 20, O2 saturation is 99%, and blood pressure 106/73. HEENT: Unremarkable. CARDIOVASCULAR SYSTEM: First and second sounds were heard. RESPIRATORY SYSTEM: Clear to auscultation. DIGESTIVE SYSTEM: Revealed a benign abdomen. EXTREMITIES: No peripheral edema. SKIN: No new gross rash. LYMPHATICS: No peripheral lymphadenopathy. IMPRESSION: 1. End-stage renal disease, on hemodialysis Monday, , and Monday. 2. Failure to thrive. 3. Respiratory failure, doing better. PLAN: 1. No indication for hemodialysis today hemodialysis tomorrow with ultrafiltration as tolerated by hemodynamics. 2. Further management will be dependent on the clinical course. 3. Renally dose all medications for end-stage renal disease. 4. Further management to be dependent on the clinical course. Job ID: [id number]
[2019-10-05] MEDS: methylPREDNISolone Sod Succ 40 MG VIAL IVP SCH ×4 (01:40→17:12)
[2019-10-05] MEDS: Meropenem 500 MG in Sodium Chloride 0.9% 100 ML IVPB SCH ×2 (05:09→20:24)
[2019-10-05] MEDS: Famotidine/PF 20 mg/2ml Vial SLOW IVP SCH (06:40)
[2019-10-05] MEDS: Sevelamer Carbonate 800 MG TAB PO SCH ×4 (09:09→15:03)
[2019-10-05] MEDS: Raltegravir Potassium 400 MG TAB PO SCH ×2 (09:09→21:45)
[2019-10-05] MEDS: Aspirin 81 mg Enteric Coated Tablet PO SCH (09:10)
[2019-10-05] MEDS: Fludrocortisone Acetate 0.1 MG TAB PO SCH (09:10)
[2019-10-05] MEDS: Carvedilol 3.125 MG TAB PO SCH ×2 (09:10→20:32)
[2019-10-05] MEDS: Folic Acid 1 MG TAB PO SCH (09:11)
[2019-10-05] MEDS: hydrALAZINE 25 MG TAB PO SCH ×2 (09:20→20:32)
[2019-10-05 09:21] LABS: Vancomycin, Random 18.6 ug/mL (See Comment)
[2019-10-05] MEDS: Cyanocobalamin (Vitamin B-12) 1,000 MCG TAB PO SCH (09:21)
[2019-10-05] MEDS: Famotidine 20 MG TAB PO SCH (09:21)
[2019-10-05] MEDS: Calcium Carbonate 600 MG TAB PO SCH (09:21)
[2019-10-05 09:22] LABS: Albumin 3.4 g/dL (3.4-4.8); Anion Gap 25 mmol/L (10-20); BUN (Urea Nitrogen) 75 mg/dL (8.4-25.7); BUN/Creatinine Ratio 18.16; Calc. Creatinine Clearance 19 mL/min (70-130); Calcium 9.4 mg/dL (7.8-10.44); Carbon Dioxide 20 mmol/L (23-31); Chloride 97 mmol/L (98-107); Estimated GFR-MDRD 18; Glucose 118 mg/dL (80-115); Glucose POC Confirmation 118 mg/dl (80-115); Phosphorus 8.7 mg/dL (2.3-4.7); Sodium 136 mmol/L (136-145)
[2019-10-05] MEDS: Lidocaine 5% Patch TD SCH (09:22)
[2019-10-05] MEDS: Acetaminophen/Codeine 30-300mg Tablet PO PRN (09:32)
[2019-10-05] MEDS ORDERED: Calcium Gluconate 4.6 MEQ in Sodium Chloride 0.9% 100 ML IVPB SCH (11:02)
--- NOTE | 2019-10-05 11:47 | RAD ---
EXAM: CHEST ONE VIEW HISTORY: Low oxygen saturation COMPARISON: 10/03/2019 FINDINGS: Cardiac silhouette remains enlarged. Increased airspace opacities are seen in the left midlung zone a nd at the left lung base with minimal interstitial prominence right medial lung base with nodular density now present at the right lung base which is less apparent on the prior exam. There is probabl e small left pleural effusion. No other interval change IMPRESSION: Airspace opacities again seen within the lungs bilaterally greater in the left midlung zone and left lung base which may represent bilateral pneumonia. Atypical pneumonia cannot be entirely excluded. Continued follow-up to complete resolution is recommended. There is a nodular opacity seen within the right lung base on the current study which also may be related to infiltrate as no discrete pulmonary nodule was seen on prior chest x-ray or CT exam on 09/29/2019.
[2019-10-05 16:12] LABS: Hemoglobin 12.7 g/dL (14.0-18.0); Mean Corpuscular HGB CONC 31.8 g/dL (32.0-36.0); Mean Corpuscular Hemoglobin 35.8 pg (27.0-31.0); Mean Platelet Volume 10.2 fL (7.4-10.4); Platelet Count 149 thou/uL (130-400); RBC Distribution Width 23.8 % (11.5-14.5); Red Blood Cell (RBC) Count 3.53 mill/uL (4.70-6.10)
[2019-10-05 16:22] LABS: Anisocytosis MODERATE=16-30 cells (100X) (0-5/hpf); Lymphocytes 4 % (21-51); MDiff Complete? YES; Macrocytosis SLIGHT = 6-15 cells (100X) (0-5/hpf); Monocytes 4 % (0-10); Neutrophil 92 % (42-75); Nucleated RBC 1 % (0); Ovalocytes SLIGHT = 2-5 cells (100X) (0-1/hpf); Platelet Morphology Comment Appears Adequate; Poikilocytosis SLIGHT = 6-15 cells (100X) (0-5/hpf); Polychromasia SLIGHT = 2-3 cells (100X) (0-2/hpf); Schistocytes SLIGHT = 2-5 cells (100X) (0-1/hpf); Spherocytes SLIGHT = 1-5 cells (100X) (None Seen); Target Cells SLIGHT = 2-5 cells (100X) (0-1/hpf); Tear Drops SLIGHT = 2-5 cells (100X) (0-1/hpf); White Blood Cell (WBC) Count 5.1 thou/uL (4.8-10.8)
--- NOTE | 2019-10-05 17:17 | PRG ---
DATE OF SERVICE: 10/05/2019 SUBJECTIVE: The patient noted with the following vital signs. OBJECTIVE: VITAL SIGNS: Pulse of 78, blood pressure 154/89. HEENT: Unremarkable. CARDIOVASCULAR: First and second sounds were heard. RESPIRATORY: Clear to auscultation. DIGESTIVE: Benign abdomen. Positive bowel sounds. EXTREMITIES: No peripheral edema. SKIN: No new gross rash. LYMPHATICS: No peripheral lymphadenopathy. LABORATORY INVESTIGATION: Potassium of 6.0, bicarb of 20, BUN of 75, creatinine 4.13. IMPRESSION: End-stage renal disease, on hemodialysis Monday, , and Monday schedule. PLAN: We will dialyze this patient today in accordance with the schedule with ultrafiltration as tolerated by hemodynamics. Job ID: [id number]
[2019-10-05] MEDS: Dextrose 50% Abboject 50 ML SYRINGE SLOW IVP PRN (19:45)
[2019-10-05] MEDS: Pravastatin Sodium 20 MG TAB PO SCH (20:31)
[2019-10-05] MEDS: Gabapentin 300 MG CAP PO SCH (20:31)
[2019-10-05] MEDS: Lidocaine Patch Removal 1 EACH TOP SCH (21:44)
[2019-10-05] MEDS: Melatonin 3 MG TAB PO SCH (21:45)
[2019-10-05] MEDS: Nortriptyline HCl 25 MG CAP PO SCH (21:45)
[2019-10-06] MEDS: methylPREDNISolone Sod Succ 40 MG VIAL IVP SCH ×2 (00:56→05:44)
[2019-10-06] MEDS: Acetaminophen/Codeine 30-300mg Tablet PO PRN ×2 (01:12→09:55)
[2019-10-06] MEDS: Famotidine/PF 20 mg/2ml Vial SLOW IVP SCH (07:20)
[2019-10-06] MEDS: Famotidine 20 MG TAB PO SCH (07:20)
--- NOTE | 2019-10-06 07:35 | PDOC.HOSPP ---
- Subjective Encounter Date: 10/05/19 Encounter Time: 10:15 Subjective: pt up in bed no appears in any distress - Objective Vital Signs & Weight: Vital Signs (12 hours) Temp Pulse Resp BP BP Pulse Ox 10/06/19 06:25 94 20 94 L 10/06/19 04:00 79 20 100 10/06/19 02:11 87 10/06/19 02:10 87 19 10/06/19 00:00 76 20 98 10/05/19 22:17 83 20 10/05/19 20:32 75 112/69 10/05/19 20:00 97.6 F 75 20 112/69 96 Weight Weight 159 lb 11.2 oz Most Recent Monitor Data Heart Rate from ECG 84 NIBP 140/91 NIBP BP-Mean 107 Respiration from ECG 24 SpO2 98 I&O: 10/05/19 10/06/19 10/07/19 06:59 06:59 06:59 Intake Total 1120 Balance 1120 Result Diagrams: 10/05/19 15:25 10/05/19 08:43 Additional Labs: Accuchecks 10/06/19 10/06/19 10/05/19 05:05 04:08 21:52 POC Glucose 98 69 L 99 10/05/19 10/05/19 20:22 19:44 POC Glucose 91 Less than 35 L* Hospitalist ROS - Review of Systems Respiratory: reports: shortness of breath Cardiovascular: denies: chest pain, palpitations, orthopnea, paroxysmal noc. dyspnea, edema, light headedness, other Gastrointestinal: denies: nausea, vomiting, abdominal pain, diarrhea, constipation, melena, hematochezia, other Genitourinary: denies: dysuria, frequency, incontinence, hematuria, retention, other - Medication Medications: Active Medications Generic Name Dose Route Start Last Admin Trade Name Freq PRN Reason Stop Dose Admin Acetaminophen 650 mg 09/29/19 03:52 10/01/19 22:32 Tylenol PO 650 mg Q4H PRN Administration Headache/Fever/Mild Pain (1-3) Acetaminophen/Codeine Phosphate 1 tab 10/02/19 22:32 10/06/19 01:12 Tylenol #3 PO 1 tab Q6HR PRN Administration Pain Albuterol/Ipratropium 3 ml 09/29/19 06:30 02/23/20 06:25 Duoneb NEB 3 ml [id number] ESME Administration Aspirin 81 mg 09/29/19 09:00 10/05/19 09:10 Ecotrin PO 81 mg DAILY ESME Administration Calcium Carbonate 600 mg 09/30/19 09:00 10/05/19 09:21 Caltrate PO 600 mg DAILY ESME Administration Carvedilol 3.125 mg 09/29/19 21:00 10/05/19 20:32 Coreg PO 3.125 mg BID ESME Administration Cyanocobalamin 1,000 mcg 09/30/19 09:00 10/05/19 09:21 Vitamin B-12 PO 1,000 mcg DAILY ESME Administration Dextrose/Water 25 gm 09/29/19 19:42 10/05/19 19:45 Dextrose 50% SLOW IVP 25 gm PRN PRN Administration Hypoglycemia Docusate Sodium 100 mg 09/29/19 09:21 10/01/19 21:35 Colace PO 100 mg DAILY PRN Administration Constipation Etravirine 200 mg 09/29/19 18:00 10/05/19 14:58 Intelence PO 200 mg BID-PC ESME Administration Famotidine 20 mg 09/29/19 09:00 10/06/19 07:20 Pepcid SLOW IVP Not Given 0900 ESME Famotidine 20 mg 09/29/19 09:00 10/06/19 07:20 Pepcid PO Not Given 0900 [facility] Fludrocortisone Acetate 0.1 mg 09/30/19 09:00 10/05/19 09:10 Florinef PO 0.1 mg DAILY ESME Administration Folic Acid 1 mg 09/30/19 09:00 10/05/19 09:11 Folvite PO 1 mg DAILY ESME Administration Gabapentin 300 mg 09/29/19 21:00 10/05/19 20:31 Neurontin PO 300 mg HS ESME Administration Hydralazine HCl 25 mg 09/29/19 21:00 10/05/19 20:32 Apresoline PO 25 mg BID ESME Administration Lidocaine 1 patch 09/30/19 09:00 10/05/19 09:22 Lidoderm 5% Patch TD 1 patch Q24HR ESME Administration Melatonin 9 mg 09/29/19 21:00 10/05/19 21:45 Melatonin PO 9 mg HS ESME Administration Miscellaneous Medication 1 each 09/29/19 21:00 10/05/19 21:44 Lidocaine Patch Removal TOP Not Given 2100 ESME Nortriptyline HCl 25 mg 09/29/19 21:00 10/05/19 21:45 Pamelor PO 25 mg HS ESME Administration Pantoprazole Sodium 40 mg 09/30/19 09:00 10/05/19 09:11 Protonix PO 40 mg DAILY ESME Administration Pravastatin Sodium 5 mg 09/29/19 21:00 10/05/19 20:31 Pravachol PO 5 mg HS ESME Administration Raltegravir 400 mg 09/29/19 21:00 10/05/19 21:45 Isentress PO 400 mg BID ESME Administration Sevelamer Carbonate 800 mg 09/29/19 12:00 10/05/19 15:03 Renvela PO 800 mg TID-WM ESME Administration Sodium Chloride 10 ml 09/29/19 03:52 10/04/19 16:47 Flush - Normal Saline IVF 10 ml PRN PRN Administration Saline Flush Zidovudine 100 mg 09/29/19 14:00 10/06/19 05:47 Retrovir PO 100 mg Q8HR ESME Administration - Exam Heart: negative: RRR, no murmur, no gallops, no rubs, normal peripheral pulses, irregular, diminshed peripheral pulses, murmur present, II/IV, III/IV Respiratory: negative: CTAB, no wheezes, no rales, no ronchi, normal chest expansion, no tachypnea, normal percussion, rales, rhonchi, tachypneic, wheezes Gastrointestinal: negative: soft, non-tender, non-distended, normal bowel sounds , no palpable masses, no hepatomegaly, no splenomegaly, no bruit, no guarding, no rigidity, tender to palpation, distended, diminished bowl sounds, voluntary guarding Extremities - other findings: bilateral upper ext edema Hosp A/P (1) Acute on chronic respiratory failure with hypoxemia Code(s): J96.21 - ACUTE AND CHRONIC RESPIRATORY FAILURE WITH HYPOXIA Status: Acute (2) DM (diabetes mellitus) Code(s): E11.9 - TYPE 2 DIABETES MELLITUS WITHOUT COMPLICATIONS Status: Chronic (3) ESRD (end stage renal disease) on dialysis Code(s): N18.6 - END STAGE RENAL DISEASE; Z99.2 - DEPENDENCE ON RENAL DIALYSIS Status: Chronic (4) HIV (human immunodeficiency virus infection) Code(s): B20 - HUMAN IMMUNODEFICIENCY VIRUS [HIV] DISEASE Status: Chronic Qualifiers: (5) Moderate protein malnutrition Code(s): E44.0 - MODERATE PROTEIN-CALORIE MALNUTRITION Status: Chronic - Plan pt needs to be back on bipap. His last cb4 count was in the 's He will need pcp and mac ppx. Not sure if he is taking his meds. will check ldh, his A-a gradient is high. will also get ID. pt is on broad spectrum abx and has had multiple admissions this month. His elevated trop is most likely demand related. 09/30 pt on broad spectrum abx. ESRD on dialysis. He is on antivirals. palliative care to meet with family for change in code status. 10/01 pt up in bed very alert and oriented and wants to go to hospice. will continue abx for now. [facility] home health has been consulted who is working with the pt and family for hospice. 10/02 will continue current tx, will need to await hospice eval. 10/03 pt is on bipap, on abx, esrd on dialysis. will continue antivirals.
[2019-10-06] MEDS: Meropenem 500 MG in Sodium Chloride 0.9% 100 ML IVPB SCH ×2 (09:21→21:14)
[2019-10-06] MEDS: Folic Acid 1 MG TAB PO SCH (09:24)
[2019-10-06] MEDS: predniSONE 20 MG TAB PO SCH (09:25)
[2019-10-06] MEDS: Raltegravir Potassium 400 MG TAB PO SCH ×2 (09:26→21:17)
[2019-10-06] MEDS: Aspirin 81 mg Enteric Coated Tablet PO SCH (09:26)
[2019-10-06] MEDS: Cyanocobalamin (Vitamin B-12) 1,000 MCG TAB PO SCH (09:26)
[2019-10-06] MEDS: hydrALAZINE 25 MG TAB PO SCH ×2 (09:26→21:16)
[2019-10-06] MEDS: Fludrocortisone Acetate 0.1 MG TAB PO SCH (09:27)
[2019-10-06] MEDS: Calcium Carbonate 600 MG TAB PO SCH (09:27)
[2019-10-06] MEDS: Carvedilol 3.125 MG TAB PO SCH ×2 (09:27→21:18)
[2019-10-06] MEDS: Sevelamer Carbonate 800 MG TAB PO SCH ×3 (09:54→16:30)
[2019-10-06] MEDS: Lidocaine 5% Patch TD SCH (10:43)
--- NOTE | 2019-10-06 12:03 | PDOC.HOSPP ---
- Subjective Encounter Date: 10/06/19 Encounter Time: 12:01 Subjective: awake,alert - Objective Vital Signs & Weight: Vital Signs (12 hours) Temp Pulse Resp BP Pulse Ox 10/06/19 10:18 101 H 20 95 10/06/19 09:26 96 10/06/19 08:11 99.1 F 96 24 H 119/80 94 L 10/06/19 06:25 94 20 94 L 10/06/19 04:00 79 20 100 10/06/19 02:11 87 10/06/19 02:10 87 19 Weight Weight 159 lb 11.2 oz Most Recent Monitor Data Heart Rate from ECG 84 NIBP 140/91 NIBP BP-Mean 107 Respiration from ECG 24 SpO2 98 I&O: 10/05/19 10/06/19 10/07/19 06:59 06:59 06:59 Intake Total 1120 Balance 1120 Result Diagrams: 10/05/19 15:25 10/05/19 08:43 Additional Labs: Accuchecks 10/06/19 10/06/19 10/06/19 10:57 05:05 04:08 POC Glucose 130 H 98 69 L 10/05/19 10/05/19 10/05/19 21:52 20:22 19:44 POC Glucose 99 91 Less than 35 L* Hospitalist ROS - Medication Medications: Active Medications Generic Name Dose Route Start Last Admin Trade Name Freq PRN Reason Stop Dose Admin Acetaminophen 650 mg 09/29/19 03:52 10/01/19 22:32 Tylenol PO 650 mg Q4H PRN Administration Headache/Fever/Mild Pain (1-3) Acetaminophen/Codeine Phosphate 1 tab 10/02/19 22:32 10/06/19 09:55 Tylenol #3 PO 1 tab Q6HR PRN Administration Pain Albuterol/Ipratropium 3 ml 09/29/19 06:30 10/06/19 10:18 Duoneb NEB 3 ml [id number] ESME Administration Aspirin 81 mg 09/29/19 09:00 10/06/19 09:26 Ecotrin PO 81 mg DAILY ESME Administration Calcium Carbonate 600 mg 09/30/19 09:00 10/06/19 09:27 Caltrate PO 600 mg DAILY ESME Administration Carvedilol 3.125 mg 09/29/19 21:00 10/06/19 09:27 Coreg PO 3.125 mg BID ESME Administration Cyanocobalamin 1,000 mcg 09/30/19 09:00 10/06/19 09:26 Vitamin B-12 PO 1,000 mcg DAILY ESME Administration Dextrose/Water 25 gm 09/29/19 19:42 10/05/19 19:45 Dextrose 50% SLOW IVP 25 gm PRN PRN Administration Hypoglycemia Docusate Sodium 100 mg 09/29/19 09:21 10/01/19 21:35 Colace PO 100 mg DAILY PRN Administration Constipation Etravirine 200 mg 09/29/19 18:00 10/06/19 09:21 Intelence PO 200 mg BID-PC ESME Administration Famotidine 20 mg 09/29/19 09:00 10/06/19 07:20 Pepcid SLOW IVP Not Given 0900 ESME Famotidine 20 mg 09/29/19 09:00 10/06/19 07:20 Pepcid PO Not Given 0900 [facility] Fludrocortisone Acetate 0.1 mg 09/30/19 09:00 10/06/19 09:27 Florinef PO 0.1 mg DAILY ESME Administration Folic Acid 1 mg 09/30/19 09:00 10/06/19 09:24 Folvite PO 1 mg DAILY ESME Administration Gabapentin 300 mg 09/29/19 21:00 10/05/19 20:31 Neurontin PO 300 mg HS ESME Administration Hydralazine HCl 25 mg 09/29/19 21:00 10/06/19 09:26 Apresoline PO 25 mg BID ESME Administration Meropenem 500 mg/ Sodium 100 mls @ 200 mls/hr 10/06/19 08:00 10/06/19 09:21 Chloride IVPB 100 mls 0800,2000 ESME Administration Lidocaine 1 patch 09/30/19 09:00 10/06/19 10:43 Lidoderm 5% Patch TD 1 patch Q24HR ESME Administration Melatonin 9 mg 09/29/19 21:00 10/05/19 21:45 Melatonin PO 9 mg HS ESME Administration Miscellaneous Medication 1 each 09/29/19 21:00 10/05/19 21:44 Lidocaine Patch Removal TOP Not Given 2100 ESME Nortriptyline HCl 25 mg 09/29/19 21:00 10/05/19 21:45 Pamelor PO 25 mg HS ESME Administration Pantoprazole Sodium 40 mg 09/30/19 09:00 10/06/19 09:27 Protonix PO 40 mg DAILY ESME Administration Pravastatin Sodium 5 mg 09/29/19 21:00 10/05/19 20:31 Pravachol PO 5 mg HS ESME Administration Prednisone 40 mg 10/06/19 08:00 10/06/19 09:25 Prednisone PO 40 mg QAM-WM ESME Administration Raltegravir 400 mg 09/29/19 21:00 10/06/19 09:26 Isentress PO 400 mg BID ESME Administration Sevelamer Carbonate 800 mg 09/29/19 12:00 10/06/19 11:50 Renvela PO 800 mg TID-WM ESME Administration Sodium Chloride 10 ml 09/29/19 03:52 10/04/19 16:47 Flush - Normal Saline IVF 10 ml PRN PRN Administration Saline Flush Zidovudine 100 mg 09/29/19 14:00 10/06/19 11:50 Retrovir PO 100 mg Q8HR ESME Administration - Exam General Appearance: awake alert Neck: no JVD Heart: RRR, no murmur Respiratory - other findings: decreased BS with rales bilat lower lung arriaga Gastrointestinal: soft, normal bowel sounds Extremities: no edema Hosp A/P (1) Aspiration pneumonia Code(s): J69.0 - PNEUMONITIS DUE TO INHALATION OF FOOD AND VOMIT Status: Acute Qualifiers: Laterality: bilateral Lung location: lower lobe of lung (2) Acute on chronic respiratory failure with hypoxemia Code(s): J96.21 - ACUTE AND CHRONIC RESPIRATORY FAILURE WITH HYPOXIA Status: Acute (3) DM (diabetes mellitus) Code(s): E11.9 - TYPE 2 DIABETES MELLITUS WITHOUT COMPLICATIONS Status: Chronic Qualifiers: Diabetes mellitus type: type 2 Diabetes mellitus terminal gauger insulin use: without long-term use Diabetes mellitus complication status: with kidney complications Diabetes mellitus complication detail: with chronic kidney disease Chronic kidney disease stage: on chronic dialysis Qualified Code(s) : E11.22 - Type 2 diabetes mellitus with diabetic chronic kidney disease; N18.6 - End stage renal disease; Z99.2 - Dependence on renal dialysis (4) ESRD (end stage renal disease) on dialysis Code(s): N18.6 - END STAGE RENAL DISEASE; Z99.2 - DEPENDENCE ON RENAL DIALYSIS Status: Chronic (5) HIV (human immunodeficiency virus infection) Code(s): B20 - HUMAN IMMUNODEFICIENCY VIRUS [HIV] DISEASE Status: Chronic Qualifiers: HIV symptom status: unspecified Qualified Code(s): B20 - Human immunodeficiency virus [HIV] disease (6) Hepatitis C Code(s): B19.20 - UNSPECIFIED VIRAL HEPATITIS C WITHOUT HEPATIC COMA Status: Chronic Qualifiers: Viral hepatitis chronicity: chronic Hepatic coma status: without hepatic coma Qualified Code(s): B18.2 - Chronic viral hepatitis C - Plan cont antibx cont HD cont antiviral tx cont accu/ss
[2019-10-06] MEDS: Dextrose 50% Abboject 50 ML SYRINGE SLOW IVP PRN ×2 (16:30→17:00)
[2019-10-06] MEDS: Gabapentin 300 MG CAP PO SCH (21:16)
[2019-10-06] MEDS: Pravastatin Sodium 20 MG TAB PO SCH (21:17)
[2019-10-06] MEDS: Melatonin 3 MG TAB PO SCH (21:18)
[2019-10-06] MEDS: Lidocaine Patch Removal 1 EACH TOP SCH (21:18)
[2019-10-06] MEDS: Nortriptyline HCl 25 MG CAP PO SCH (21:18)
[2019-10-07 06:24] LABS: Anion Gap 23 mmol/L (10-20); BUN (Urea Nitrogen) 71 mg/dL (8.4-25.7); Calc. Creatinine Clearance 18 mL/min (70-130); Calcium 9.2 mg/dL (7.8-10.44); Carbon Dioxide 18 mmol/L (23-31); Chloride 95 mmol/L (98-107); Estimated GFR-MDRD 17; Glucose 82 mg/dL (80-115); Potassium 5.4 mmol/L (3.5-5.1); Sodium 131 mmol/L (136-145)
--- NOTE | 2019-10-07 07:56 | PRG ---
DATE OF SERVICE: SUBJECTIVE: Brant Villeda still has intermittent dyspnea. He has no complaints today, says he is good without BiPAP when I saw him. OBJECTIVE: VITAL SIGNS: He is afebrile. Heart rate is 88, respiratory rate is 16, oxygen saturation 94% on 4 L cannula, blood pressure 137/86. LUNGS: Remarkable for fine crackles at bases. HEART: Regular rhythm. ABDOMEN: Soft. LABORATORY DATA: IMPRESSION: Chronic respiratory failure with acute decompensation felt secondary to aspiration or just pure muscle weakness, plugging continue p.r.n. BiPAP. We will see less frequently. I really have nothing to offer make sure stays on the dry side from a dialysis standpoint. Job ID: [id number]
[2019-10-07] MEDS: predniSONE 20 MG TAB PO SCH (09:09)
[2019-10-07] MEDS: Sevelamer Carbonate 800 MG TAB PO SCH ×3 (09:09→16:46)
[2019-10-07] MEDS: Raltegravir Potassium 400 MG TAB PO SCH ×2 (09:09→21:19)
[2019-10-07] MEDS: Aspirin 81 mg Enteric Coated Tablet PO SCH (09:09)
[2019-10-07] MEDS: Cyanocobalamin (Vitamin B-12) 1,000 MCG TAB PO SCH (09:10)
[2019-10-07] MEDS: Calcium Carbonate 600 MG TAB PO SCH (09:10)
[2019-10-07] MEDS: Carvedilol 3.125 MG TAB PO SCH ×2 (09:10→21:18)
[2019-10-07] MEDS: Famotidine 20 MG TAB PO SCH (09:10)
[2019-10-07] MEDS: hydrALAZINE 25 MG TAB PO SCH ×2 (09:10→21:19)
[2019-10-07] MEDS: Folic Acid 1 MG TAB PO SCH (09:10)
[2019-10-07] MEDS: Fludrocortisone Acetate 0.1 MG TAB PO SCH (09:10)
[2019-10-07] MEDS: Famotidine/PF 20 mg/2ml Vial SLOW IVP SCH (09:11)
[2019-10-07] MEDS: Acetaminophen/Codeine 30-300mg Tablet PO PRN ×2 (09:11→21:27)
[2019-10-07] MEDS: Lidocaine 5% Patch TD SCH (09:13)
[2019-10-07] MEDS: Meropenem 500 MG in Sodium Chloride 0.9% 100 ML IVPB SCH ×2 (09:13→21:10)
--- NOTE | 2019-10-07 11:08 | PDOC.HOSPP ---
- Subjective Encounter Date: 10/07/19 Encounter Time: 10:45 Subjective: no complaints - Objective Vital Signs & Weight: Vital Signs (12 hours) Pulse BP Pulse Ox 10/07/19 09:10 92 127/90 10/07/19 04:05 97 10/06/19 23:28 95 Weight Weight 159 lb 11.2 oz Most Recent Monitor Data Heart Rate from ECG 84 NIBP 140/91 NIBP BP-Mean 107 Respiration from ECG 24 SpO2 98 Result Diagrams: 10/05/19 15:25 10/07/19 05:40 Additional Labs: Accuchecks 10/07/19 10/06/19 10/06/19 04:55 21:10 17:21 POC Glucose 75 100 186 H 10/06/19 10/06/19 10/06/19 16:54 16:23 10:57 POC Glucose Less than 35 L* 50 L* 130 H 10/04/19 20:40 POC Glucose 119 H Hospitalist ROS - Medication Medications: Active Medications Generic Name Dose Route Start Last Admin Trade Name Freq PRN Reason Stop Dose Admin Acetaminophen 650 mg 09/29/19 03:52 10/01/19 22:32 Tylenol PO 650 mg Q4H PRN Administration Headache/Fever/Mild Pain (1-3) Acetaminophen/Codeine Phosphate 1 tab 10/02/19 22:32 10/07/19 09:11 Tylenol #3 PO 1 tab Q6HR PRN Administration Pain Albuterol/Ipratropium 3 ml 09/29/19 06:30 10/07/19 07:55 Duoneb NEB Not Given [id number]-KR ESME Aspirin 81 mg 09/29/19 09:00 10/07/19 09:09 Ecotrin PO 81 mg DAILY ESME Administration Calcium Carbonate 600 mg 09/30/19 09:00 10/07/19 09:10 Caltrate PO 600 mg DAILY ESME Administration Carvedilol 3.125 mg 09/29/19 21:00 10/07/19 09:10 Coreg PO 3.125 mg BID ESME Administration Cyanocobalamin 1,000 mcg 09/30/19 09:00 10/07/19 09:10 Vitamin B-12 PO 1,000 mcg DAILY ESME Administration Dextrose/Water 25 gm 09/29/19 19:42 10/06/19 17:00 Dextrose 50% SLOW IVP 25 gm PRN PRN Administration Hypoglycemia Docusate Sodium 100 mg 09/29/19 09:21 10/01/19 21:35 Colace PO 100 mg DAILY PRN Administration Constipation Etravirine 200 mg 09/29/19 18:00 10/07/19 09:09 Intelence PO 200 mg BID-PC ESME Administration Famotidine 20 mg 09/29/19 09:00 10/07/19 09:11 Pepcid SLOW IVP Not Given 09 ESME Famotidine 20 mg 09/29/19 09:00 10/07/19 09:10 Pepcid PO 20 mg 0900 ESME Administration Fludrocortisone Acetate 0.1 mg 09/30/19 09:00 10/07/19 09:10 Florinef PO 0.1 mg DAILY ESME Administration Folic Acid 1 mg 09/30/19 09:00 10/07/19 09:10 Folvite PO 1 mg DAILY ESME Administration Gabapentin 300 mg 09/29/19 21:00 10/06/19 21:16 Neurontin PO 300 mg HS ESME Administration Hydralazine HCl 25 mg 09/29/19 21:00 10/07/19 09:10 Apresoline PO 25 mg BID ESME Administration Meropenem 500 mg/ Sodium 100 mls @ 200 mls/hr 10/06/19 08:00 10/07/19 09:13 Chloride IVPB 100 mls 0800,2000 ESME Administration Lidocaine 1 patch 09/30/19 09:00 10/07/19 09:13 Lidoderm 5% Patch TD 1 patch Q24HR ESME Administration Melatonin 9 mg 09/29/19 21:00 10/06/19 21:18 Melatonin PO 9 mg HS ESME Administration Miscellaneous Medication 1 each 09/29/19 21:00 10/06/19 21:18 Lidocaine Patch Removal TOP Not Given 2100 ESME Nortriptyline HCl 25 mg 09/29/19 21:00 10/06/19 21:18 Pamelor PO 25 mg HS ESME Administration Pantoprazole Sodium 40 mg 09/30/19 09:00 10/07/19 09:09 Protonix PO 40 mg DAILY ESME Administration Pravastatin Sodium 5 mg 09/29/19 21:00 10/06/19 21:17 Pravachol PO 5 mg HS ESME Administration Prednisone 40 mg 10/06/19 08:00 10/07/19 09:09 Prednisone PO 40 mg QAM-WM ESME Administration Raltegravir 400 mg 09/29/19 21:00 10/07/19 09:09 Isentress PO 400 mg BID ESME Administration Sevelamer Carbonate 800 mg 09/29/19 12:00 10/07/19 09:09 Renvela PO 800 mg TID-WM ESME Administration Sodium Chloride 10 ml 09/29/19 03:52 10/07/19 09:14 Flush - Normal Saline IVF 10 ml PRN PRN Administration Saline Flush Zidovudine 100 mg 09/29/19 14:00 10/07/19 06:04 Retrovir PO 100 mg Q8HR ESME Administration - Exam General Appearance: awake alert Neck: no JVD Heart: RRR Respiratory: CTAB Gastrointestinal: soft, normal bowel sounds Extremities: no edema Hosp A/P (1) Aspiration pneumonia Code(s): J69.0 - PNEUMONITIS DUE TO INHALATION OF FOOD AND VOMIT Status: Acute Qualifiers: Laterality: bilateral Lung location: lower lobe of lung (2) Acute on chronic respiratory failure with hypoxemia Code(s): J96.21 - ACUTE AND CHRONIC RESPIRATORY FAILURE WITH HYPOXIA Status: Acute (3) DM (diabetes mellitus) Code(s): E11.9 - TYPE 2 DIABETES MELLITUS WITHOUT COMPLICATIONS Status: Chronic Qualifiers: Diabetes mellitus type: type 2 Diabetes mellitus superintendent container terminal insulin use: without correction use Diabetes mellitus complication status: with kidney complications Diabetes mellitus complication detail: with chronic kidney disease Chronic kidney disease stage: on chronic dialysis Qualified Code(s) : E11.22 - Type 2 diabetes mellitus with diabetic chronic kidney disease; N18.6 - End stage renal disease; Z99.2 - Dependence on renal dialysis (4) ESRD (end stage renal disease) on dialysis Code(s): N18.6 - END STAGE RENAL DISEASE; Z99.2 - DEPENDENCE ON RENAL DIALYSIS Status: Chronic (5) HIV (human immunodeficiency virus infection) Code(s): B20 - HUMAN IMMUNODEFICIENCY VIRUS [HIV] DISEASE Status: Chronic Qualifiers: HIV symptom status: unspecified Qualified Code(s): B20 - Human immunodeficiency virus [HIV] disease (6) Hepatitis C Code(s): B19.20 - UNSPECIFIED VIRAL HEPATITIS C WITHOUT HEPATIC COMA Status: Chronic Qualifiers: Viral hepatitis chronicity: chronic Hepatic coma status: without hepatic coma Qualified Code(s): B18.2 - Chronic viral hepatitis C - Plan cont antibx cont HD cont antiviral tx cont accu/ss Placement in progress palliative care eval in progress
[2019-10-07] MEDS: Dextrose 50% Abboject 50 ML SYRINGE SLOW IVP PRN (13:41)
--- NOTE | 2019-10-07 18:31 | PRG ---
DATE OF SERVICE: 10/07/2019 SUBJECTIVE: The patient was noted with the following vital signs. OBJECTIVE: VITAL SIGNS: Afebrile, temperature 98.1, pulse 101, respiratory rate 20, O2 saturation of 100%, blood pressure 121/83. HEENT: Unremarkable. CARDIOVASCULAR: First and second heart sounds were heard. RESPIRATORY: Clear to auscultation. DIGESTIVE SYSTEM: Revealed a benign abdomen. Positive bowel sounds. EXTREMITIES: No peripheral edema. SKIN: No new gross rash. LYMPHATICS: No peripheral lymphadenopathy. IMPRESSION: 1. End-stage renal disease. 2. Respiratory failure. 3. Failure to thrive. PLAN: 1. No indication for dialysis today. The patient to be dialyzed tomorrow with ultrafiltration in accordance with the schedule. 2. Further management to be dependent on the clinical course. Job ID: [id number]
[2019-10-07] MEDS: Lidocaine Patch Removal 1 EACH TOP SCH (21:16)
[2019-10-07] MEDS: Pravastatin Sodium 20 MG TAB PO SCH (21:18)
[2019-10-07] MEDS: Gabapentin 300 MG CAP PO SCH (21:19)
[2019-10-07] MEDS: Melatonin 3 MG TAB PO SCH (21:19)
[2019-10-07] MEDS: Nortriptyline HCl 25 MG CAP PO SCH (21:20)
[2019-10-08] MEDS: Dextrose 50% Abboject 50 ML SYRINGE SLOW IVP PRN (04:08)
[2019-10-08 06:19] LABS: Glucose POC Confirmation 26 mg/dl (80-115)
[2019-10-08] MEDS ORDERED: methylPREDNISolone Sod Succ 40 MG VIAL IVP SCH (06:30)
[2019-10-08] MEDS: Acetaminophen/Codeine 30-300mg Tablet PO PRN ×2 (06:46→21:26)
[2019-10-08] MEDS: Fludrocortisone Acetate 0.1 MG TAB PO SCH (08:01)
[2019-10-08] MEDS: Raltegravir Potassium 400 MG TAB PO SCH ×2 (08:01→21:22)
[2019-10-08] MEDS: Calcium Carbonate 600 MG TAB PO SCH (08:02)
[2019-10-08] MEDS: Cyanocobalamin (Vitamin B-12) 1,000 MCG TAB PO SCH (08:02)
[2019-10-08] MEDS: Aspirin 81 mg Enteric Coated Tablet PO SCH (08:02)
[2019-10-08] MEDS: Sevelamer Carbonate 800 MG TAB PO SCH ×3 (08:02→18:23)
[2019-10-08] MEDS: predniSONE 20 MG TAB PO SCH (08:02)
[2019-10-08] MEDS: Famotidine/PF 20 mg/2ml Vial SLOW IVP SCH (08:02)
[2019-10-08] MEDS: Folic Acid 1 MG TAB PO SCH (08:02)
[2019-10-08] MEDS: Famotidine 20 MG TAB PO SCH (08:02)
[2019-10-08] MEDS: hydrALAZINE 25 MG TAB PO SCH ×2 (08:03→21:20)
[2019-10-08 08:58] LABS: Vancomycin, Random 13.7 ug/mL (See Comment)
[2019-10-08] MEDS: Meropenem 500 MG in Sodium Chloride 0.9% 100 ML IVPB SCH (11:14)
[2019-10-08] MEDS: Carvedilol 3.125 MG TAB PO SCH ×2 (11:14→21:19)
[2019-10-08] MEDS: Lidocaine 5% Patch TD SCH (11:14)
[2019-10-08] MEDS ORDERED: Boudreaux's Butt Paste 60 GM TUBE TOP PRN (13:58)
--- NOTE | 2019-10-08 14:02 | PDOC.HOSPP ---
- Subjective Encounter Date: 10/08/19 Encounter Time: 14:00 Subjective: :my butt crack colin" - Objective Vital Signs & Weight: Vital Signs (12 hours) Temp Pulse Resp BP BP Pulse Ox 10/08/19 11:08 78 94 L 10/08/19 10:44 81 10/08/19 08:31 97.6 F 79 20 93/68 90 L 10/08/19 08:03 79 93/68 10/08/19 08:00 93 L 10/08/19 07:01 89 10/08/19 04:18 86 20 118/75 94 L 10/08/19 02:06 80 Weight Weight 159 lb 11.2 oz Most Recent Monitor Data Heart Rate from ECG 84 NIBP 140/91 NIBP BP-Mean 107 Respiration from ECG 24 SpO2 98 I&O: 10/07/19 10/08/19 10/09/19 06:59 06:59 06:59 Intake Total 580 Balance 580 Result Diagrams: 10/05/19 15:25 10/07/19 05:40 Additional Labs: Accuchecks 10/08/19 10/08/19 10/08/19 11:36 06:14 06:06 POC Glucose 117 H 122 H Less than 35 L* 10/08/19 10/07/19 10/07/19 04:09 20:18 16:40 POC Glucose 49 L* 92 101 10/07/19 10/07/19 10/07/19 16:20 14:37 14:28 POC Glucose 125 H 45 L* Less than 35 L* Hospitalist ROS - Medication Medications: Active Medications Generic Name Dose Route Start Last Admin Trade Name Darioq PRN Reason Stop Dose Admin Acetaminophen 650 mg 09/29/19 03:52 10/01/19 22:32 Tylenol PO 650 mg Q4H PRN Administration Headache/Fever/Mild Pain (1-3) Acetaminophen/Codeine Phosphate 1 tab 10/02/19 22:32 10/08/19 06:46 Tylenol #3 PO 1 tab Q6HR PRN Administration Pain Albuterol/Ipratropium 3 ml 09/29/19 06:30 10/08/19 10:43 Duoneb NEB 3 ml [id number] ESME Administration Aspirin 81 mg 09/29/19 09:00 10/08/19 08:02 Ecotrin PO 81 mg DAILY ESME Administration Calcium Carbonate 600 mg 09/30/19 09:00 10/08/19 08:02 Caltrate PO 600 mg DAILY ESME Administration Carvedilol 3.125 mg 09/29/19 21:00 10/08/19 11:14 Coreg PO Not Given BID ESME Cyanocobalamin 1,000 mcg 09/30/19 09:00 10/08/19 08:02 Vitamin B-12 PO 1,000 mcg DAILY ESME Administration Dextrose/Water 25 gm 09/29/19 19:42 10/08/19 04:08 Dextrose 50% SLOW IVP 25 gm PRN PRN Administration Hypoglycemia Docusate Sodium 100 mg 09/29/19 09:21 10/01/19 21:35 Colace PO 100 mg DAILY PRN Administration Constipation Etravirine 200 mg 09/29/19 18:00 10/08/19 08:01 Intelence PO 200 mg BID-PC ESME Administration Famotidine 20 mg 09/29/19 09:00 10/08/19 08:02 Pepcid SLOW IVP Not Given 0900 ESME Famotidine 20 mg 09/29/19 09:00 10/08/19 08:02 Pepcid PO 20 mg 0900 ESME Administration Fludrocortisone Acetate 0.1 mg 09/30/19 09:00 10/08/19 08:01 Florinef PO 0.1 mg DAILY ESME Administration Folic Acid 1 mg 09/30/19 09:00 10/08/19 08:02 Folvite PO 1 mg DAILY ESME Administration Gabapentin 300 mg 09/29/19 21:00 10/07/19 21:19 Neurontin PO 300 mg HS ESME Administration Hydralazine HCl 25 mg 09/29/19 21:00 10/08/19 08:03 Apresoline PO Not Given BID ESME Lidocaine 1 patch 09/30/19 09:00 10/08/19 11:14 Lidoderm 5% Patch TD 1 patch Q24HR ESME Administration Melatonin 9 mg 09/29/19 21:00 10/07/19 21:19 Melatonin PO 9 mg HS ESME Administration Miscellaneous Medication 1 each 09/29/19 21:00 10/07/19 21:16 Lidocaine Patch Removal TOP Not Given 2100 ESME Nortriptyline HCl 25 mg 09/29/19 21:00 10/07/19 21:20 Pamelor PO 25 mg HS ESME Administration Pantoprazole Sodium 40 mg 09/30/19 09:00 10/08/19 08:02 Protonix PO 40 mg DAILY ESME Administration Pravastatin Sodium 5 mg 09/29/19 21:00 10/07/19 21:18 Pravachol PO 5 mg HS ESME Administration Prednisone 40 mg 10/06/19 08:00 10/08/19 08:02 Prednisone PO 40 mg QAM-WM ESME Administration Raltegravir 400 mg 09/29/19 21:00 10/08/19 08:01 Isentress PO 400 mg BID ESME Administration Sevelamer Carbonate 800 mg 09/29/19 12:00 10/08/19 12:59 Renvela PO 800 mg TID-WM SEME Administration Sodium Chloride 10 ml 09/29/19 03:52 10/07/19 09:14 Flush - Normal Saline IVF 10 ml PRN PRN Administration Saline Flush Zidovudine 100 mg 09/29/19 14:00 10/08/19 12:59 Retrovir PO 100 mg Q8HR ESME Administration - Exam General Appearance: awake alert Neck: no JVD Heart: RRR, no murmur Respiratory: CTAB Gastrointestinal: soft, non-distended, normal bowel sounds Extremities: no edema Hosp A/P (1) Aspiration pneumonia Code(s): J69.0 - PNEUMONITIS DUE TO INHALATION OF FOOD AND VOMIT Status: Acute Qualifiers: Laterality: bilateral Lung location: lower lobe of lung (2) Acute on chronic respiratory failure with hypoxemia Code(s): J96.21 - ACUTE AND CHRONIC RESPIRATORY FAILURE WITH HYPOXIA Status: Acute (3) DM (diabetes mellitus) Code(s): E11.9 - TYPE 2 DIABETES MELLITUS WITHOUT COMPLICATIONS Status: Chronic Qualifiers: Diabetes mellitus type: type 2 Diabetes mellitus retirement insulin use: without drafter construction use Diabetes mellitus complication status: with kidney complications Diabetes mellitus complication detail: with chronic kidney disease Chronic kidney disease stage: on chronic dialysis Qualified Code(s) : E11.22 - Type 2 diabetes mellitus with diabetic chronic kidney disease; N18.6 - End stage renal disease; Z99.2 - Dependence on renal dialysis (4) ESRD (end stage renal disease) on dialysis Code(s): N18.6 - END STAGE RENAL DISEASE; Z99.2 - DEPENDENCE ON RENAL DIALYSIS Status: Chronic (5) HIV (human immunodeficiency virus infection) Code(s): B20 - HUMAN IMMUNODEFICIENCY VIRUS [HIV] DISEASE Status: Chronic Qualifiers: HIV symptom status: unspecified Qualified Code(s): B20 - Human immunodeficiency virus [HIV] disease (6) Hepatitis C Code(s): B19.20 - UNSPECIFIED VIRAL HEPATITIS C WITHOUT HEPATIC COMA Status: Chronic Qualifiers: Viral hepatitis chronicity: chronic Hepatic coma status: without hepatic coma Qualified Code(s): B18.2 - Chronic viral hepatitis C - Plan DC antibx cont HD cont antiviral tx cont accu/ss Jerel butt paste bid Placement in progress palliative care eval in progress
[2019-10-08] MEDS: Gabapentin 300 MG CAP PO SCH (21:19)
[2019-10-08] MEDS: Melatonin 3 MG TAB PO SCH (21:21)
[2019-10-08] MEDS: Lidocaine Patch Removal 1 EACH TOP SCH (21:21)
[2019-10-08] MEDS: Pravastatin Sodium 20 MG TAB PO SCH (21:22)
[2019-10-08] MEDS: Nortriptyline HCl 25 MG CAP PO SCH (21:22)
[2019-10-09] MEDS: Acetaminophen/Codeine 30-300mg Tablet PO PRN ×2 (07:12→21:08)
[2019-10-09] MEDS: Calcium Carbonate 600 MG TAB PO SCH (08:57)
[2019-10-09] MEDS: predniSONE 20 MG TAB PO SCH (08:57)
[2019-10-09] MEDS: Cyanocobalamin (Vitamin B-12) 1,000 MCG TAB PO SCH (08:57)
[2019-10-09] MEDS: Aspirin 81 mg Enteric Coated Tablet PO SCH (08:57)
[2019-10-09] MEDS: Folic Acid 1 MG TAB PO SCH (08:57)
[2019-10-09] MEDS: Famotidine 20 MG TAB PO SCH (08:57)
[2019-10-09] MEDS: Sevelamer Carbonate 800 MG TAB PO SCH ×3 (08:57→17:49)
[2019-10-09] MEDS: Raltegravir Potassium 400 MG TAB PO SCH ×2 (08:57→21:08)
[2019-10-09] MEDS: Carvedilol 3.125 MG TAB PO SCH ×2 (08:58→21:00)
[2019-10-09] MEDS: Famotidine/PF 20 mg/2ml Vial SLOW IVP SCH (08:58)
[2019-10-09] MEDS: Lidocaine 5% Patch TD SCH (08:59)
[2019-10-09] MEDS: Fludrocortisone Acetate 0.1 MG TAB PO SCH (09:01)
[2019-10-09] MEDS: hydrALAZINE 25 MG TAB PO SCH ×2 (09:09→21:00)
--- NOTE | 2019-10-09 14:16 | PDOC.HOSPP ---
- Subjective Encounter Date: 10/09/19 Encounter Time: 14:11 Subjective: no specific complaints - Objective Vital Signs & Weight: Vital Signs (12 hours) Temp Pulse Resp BP Pulse Ox 10/09/19 10:57 98.6 F 90 24 H 112/76 96 10/09/19 10:33 87 20 94 L 10/09/19 08:02 97.8 F 97 24 H 94/65 96 10/09/19 08:00 96 10/09/19 06:53 96 20 100 10/09/19 02:21 94 21 H Weight Weight 159 lb 11.2 oz Most Recent Monitor Data Heart Rate from ECG 84 NIBP 140/91 NIBP BP-Mean 107 Respiration from ECG 24 SpO2 98 I&O: 10/08/19 10/09/19 10/10/19 06:59 06:59 06:59 Intake Total 580 1080 Balance 580 1080 Result Diagrams: 10/05/19 15:25 10/07/19 05:40 Additional Labs: Accuchecks 10/09/19 10/09/19 10/09/19 11:04 06:16 02:26 POC Glucose 95 90 84 10/08/19 10/08/19 10/08/19 19:56 05:21 04:35 POC Glucose 104 Less than 35 L* 68 L Hospitalist ROS - Medication Medications: Active Medications Generic Name Dose Route Start Last Admin Trade Name Freq PRN Reason Stop Dose Admin Acetaminophen 650 mg 09/29/19 03:52 10/01/19 22:32 Tylenol PO 650 mg Q4H PRN Administration Headache/Fever/Mild Pain (1-3) Acetaminophen/Codeine Phosphate 1 tab 10/02/19 22:32 10/09/19 07:12 Tylenol #3 PO 1 tab Q6HR PRN Administration Pain Albuterol/Ipratropium 3 ml 09/29/19 06:30 10/09/19 14:09 Duoneb NEB Not Given [id number] ESME Aspirin 81 mg 09/29/19 09:00 10/09/19 08:57 Ecotrin PO 81 mg DAILY ESME Administration Calcium Carbonate 600 mg 09/30/19 09:00 10/09/19 08:57 Caltrate PO 600 mg DAILY ESME Administration Carvedilol 3.125 mg 09/29/19 21:00 10/09/19 08:58 Coreg PO Not Given BID ESME Cyanocobalamin 1,000 mcg 09/30/19 09:00 10/09/19 08:57 Vitamin B-12 PO 1,000 mcg DAILY ESME Administration Dextrose/Water 25 gm 09/29/19 19:42 10/08/19 04:08 Dextrose 50% SLOW IVP 25 gm PRN PRN Administration Hypoglycemia Docusate Sodium 100 mg 09/29/19 09:21 10/01/19 21:35 Colace PO 100 mg DAILY PRN Administration Constipation Etravirine 200 mg 09/29/19 18:00 10/09/19 08:57 Intelence PO 200 mg BID-PC ESME Administration Famotidine 20 mg 09/29/19 09:00 10/09/19 08:58 Pepcid SLOW IVP Not Given 0900 ESME Famotidine 20 mg 09/29/19 09:00 10/09/19 08:57 Pepcid PO 20 mg 0900 ESME Administration Fludrocortisone Acetate 0.1 mg 09/30/19 09:00 10/09/19 09:01 Florinef PO 0.1 mg DAILY ESME Administration Folic Acid 1 mg 09/30/19 09:00 10/09/19 08:57 Folvite PO 1 mg DAILY ESME Administration Gabapentin 300 mg 09/29/19 21:00 10/08/19 21:19 Neurontin PO 300 mg HS ESME Administration Hydralazine HCl 25 mg 09/29/19 21:00 10/09/19 09:09 Apresoline PO Not Given BID ESME Lidocaine 1 patch 09/30/19 09:00 10/09/19 08:59 Lidoderm 5% Patch TD 1 patch Q24HR ESME Administration Melatonin 9 mg 09/29/19 21:00 10/08/19 21:21 Melatonin PO 9 mg HS ESME Administration Miscellaneous Medication 1 each 09/29/19 21:00 10/08/19 21:21 Lidocaine Patch Removal TOP Not Given 2100 ESME Nortriptyline HCl 25 mg 09/29/19 21:00 10/08/19 21:22 Pamelor PO 25 mg HS ESME Administration Pantoprazole Sodium 40 mg 09/30/19 09:00 10/09/19 08:59 Protonix PO Not Given DAILY ESME Pravastatin Sodium 5 mg 09/29/19 21:00 10/08/19 21:22 Pravachol PO 5 mg HS ESME Administration Prednisone 40 mg 10/06/19 08:00 10/09/19 08:57 Prednisone PO 40 mg QAM-WM ESME Administration Raltegravir 400 mg 09/29/19 21:00 10/09/19 08:57 Isentress PO 400 mg BID ESME Administration Sevelamer Carbonate 800 mg 09/29/19 12:00 10/09/19 12:44 Renvela PO 800 mg TID-WM ESME Administration Sodium Chloride 10 ml 09/29/19 03:52 10/07/19 09:14 Flush - Normal Saline IVF 10 ml PRN PRN Administration Saline Flush Zidovudine 100 mg 09/29/19 14:00 10/09/19 12:44 Retrovir PO 100 mg Q8HR ESME Administration - Exam General Appearance: awake alert Neck: no JVD Heart: RRR Respiratory: CTAB Gastrointestinal: soft, normal bowel sounds Extremities: no edema Hosp A/P (1) Aspiration pneumonia Code(s): J69.0 - PNEUMONITIS DUE TO INHALATION OF FOOD AND VOMIT Status: Acute Qualifiers: Laterality: bilateral Lung location: lower lobe of lung (2) Acute on chronic respiratory failure with hypoxemia Code(s): J96.21 - ACUTE AND CHRONIC RESPIRATORY FAILURE WITH HYPOXIA Status: Acute (3) DM (diabetes mellitus) Code(s): E11.9 - TYPE 2 DIABETES MELLITUS WITHOUT COMPLICATIONS Status: Chronic Qualifiers: Diabetes mellitus type: type 2 Diabetes mellitus mcc insulin use: without mcc use Diabetes mellitus complication status: with kidney complications Diabetes mellitus complication detail: with chronic kidney disease Chronic kidney disease stage: on chronic dialysis Qualified Code(s) : E11.22 - Type 2 diabetes mellitus with diabetic chronic kidney disease; N18.6 - End stage renal disease; Z99.2 - Dependence on renal dialysis (4) ESRD (end stage renal disease) on dialysis Code(s): N18.6 - END STAGE RENAL DISEASE; Z99.2 - DEPENDENCE ON RENAL DIALYSIS Status: Chronic (5) HIV (human immunodeficiency virus infection) Code(s): B20 - HUMAN IMMUNODEFICIENCY VIRUS [HIV] DISEASE Status: Chronic Qualifiers: HIV symptom status: unspecified Qualified Code(s): B20 - Human immunodeficiency virus [HIV] disease (6) Hepatitis C Code(s): B19.20 - UNSPECIFIED VIRAL HEPATITIS C WITHOUT HEPATIC COMA Status: Chronic Qualifiers: Viral hepatitis chronicity: chronic Hepatic coma status: without hepatic coma Qualified Code(s): B18.2 - Chronic viral hepatitis C - Plan cont HD cont antiviral tx cont accu/ss Jerel butt paste bid Placement in progress palliative care eval in progress
--- NOTE | 2019-10-09 18:39 | PRG ---
DATE OF SERVICE: 10/09/2019 OBJECTIVE: VITAL SIGNS: The patient is noted with the following vital signs. Afebrile, temperature 97.8, pulse 97, respiratory rate of 20, blood pressure 112/76, O2 saturations 96%. HEENT: Unremarkable. CARDIOVASCULAR SYSTEM: First and second heart sounds were heard. RESPIRATORY SYSTEM: Clear to auscultation. DIGESTIVE SYSTEM: Revealed a benign abdomen. EXTREMITIES: No peripheral edema. SKIN: No new gross rash. LYMPHATICS: No peripheral lymphadenopathy. LABORATORY INVESTIGATION: Showed a creatinine of 4.27 as of 07 October, BUN of 71. IMPRESSION: 1. End-stage renal disease, on hemodialysis, Monday, , Monday. 2. Respiratory failure in the context of recurrent pneumonitis and flu. 3. Failure to thrive. 4. Immunosuppressive infections. PLAN: 1. The patient to continue with current renal replacement schedule, Monday, , Monday. 2. Outpatient placements as per the primary team. Job ID: [id number]
[2019-10-09] MEDS: Gabapentin 300 MG CAP PO SCH (21:00)
[2019-10-09] MEDS: Melatonin 3 MG TAB PO SCH (21:01)
[2019-10-09] MEDS: Lidocaine Patch Removal 1 EACH TOP SCH (21:01)
[2019-10-09] MEDS: Nortriptyline HCl 25 MG CAP PO SCH (21:01)
[2019-10-09] MEDS: Pravastatin Sodium 20 MG TAB PO SCH (21:02)
[2019-10-10] MEDS: Acetaminophen/Codeine 30-300mg Tablet PO PRN ×3 (05:58→23:47)
[2019-10-10] MEDS: Lidocaine 5% Patch TD SCH (08:31)
[2019-10-10] MEDS: Folic Acid 1 MG TAB PO SCH (08:37)
[2019-10-10] MEDS: Fludrocortisone Acetate 0.1 MG TAB PO SCH (08:37)
[2019-10-10] MEDS: Aspirin 81 mg Enteric Coated Tablet PO SCH (08:37)
[2019-10-10] MEDS: Calcium Carbonate 600 MG TAB PO SCH (08:37)
[2019-10-10] MEDS: Carvedilol 3.125 MG TAB PO SCH ×2 (08:37→21:01)
[2019-10-10] MEDS: Sevelamer Carbonate 800 MG TAB PO SCH ×3 (08:37→16:39)
[2019-10-10] MEDS: Raltegravir Potassium 400 MG TAB PO SCH ×2 (08:37→23:47)
[2019-10-10] MEDS: predniSONE 20 MG TAB PO SCH (08:37)
[2019-10-10] MEDS: Cyanocobalamin (Vitamin B-12) 1,000 MCG TAB PO SCH (08:37)
[2019-10-10] MEDS: Famotidine/PF 20 mg/2ml Vial SLOW IVP SCH (08:38)
[2019-10-10] MEDS: Famotidine 20 MG TAB PO SCH (08:38)
[2019-10-10] MEDS: hydrALAZINE 25 MG TAB PO SCH ×2 (08:38→21:04)
[2019-10-10 14:53] VITALS: BMI 22.8
--- NOTE | 2019-10-10 17:07 | PRG ---
DATE OF SERVICE: 10/10/2019 OBJECTIVE: VITAL SIGNS: The patient noted with the following vital signs. Blood pressure 121/79, pulse 88, respiratory rate 20, O2 saturation of 96%. GENERAL: The patient is in no dialysis, no new complaint. HEENT: Unremarkable. CARDIOVASCULAR: Positive sounds were heard. RESPIRATORY: Clear to auscultation. DIGESTIVE SYSTEM: Benign abdomen. EXTREMITIES: Left upper extremity edema. LYMPHATICS: No peripheral lymphadenopathy. IMPRESSION: 1. End-stage renal disease, on dialysis. 2. Respiratory failure in the context of recurrent pneumonitis and flu. 3. Failure to thrive. PLAN: 1. Continue current renal function therapy schedule. 2. Further management to be dependent on the clinical course. Disposition planning is per the primary team. Job ID: [id number]
--- NOTE | 2019-10-10 18:27 | PDOC.HOSPP ---
- Subjective Encounter Date: 10/10/19 Encounter Time: 11:00 Subjective: pt seen on f/u denies fever chills nause vomiting sob or chest pain - Objective Vital Signs & Weight: Vital Signs (12 hours) Temp Pulse Resp BP Pulse Ox 10/10/19 14:00 88 20 96 10/10/19 10:19 91 20 98 10/10/19 08:00 95 10/10/19 07:48 97.9 F 88 22 H 121/79 95 10/10/19 07:10 95 24 H 100 Weight Admit Weight 155 lb 6.814 oz Weight 159 lb 11.2 oz Most Recent Monitor Data Heart Rate from ECG 84 NIBP 140/91 NIBP BP-Mean 107 Respiration from ECG 24 SpO2 98 I&O: 10/09/19 10/10/19 10/11/19 06:59 06:59 06:59 Intake Total 1080 360 Balance 1080 360 Result Diagrams: 10/05/19 15:25 10/07/19 05:40 Additional Labs: Accuchecks 10/10/19 10/10/19 10/10/19 12:22 06:08 05:55 POC Glucose 90 76 54 L* 10/09/19 20:05 POC Glucose 141 H Hospitalist ROS - Review of Systems All other systems reviewed; all pertinent +/- noted in HPI/Subj - Medication Medications: Active Medications Generic Name Dose Route Start Last Admin Trade Name Freq PRN Reason Stop Dose Admin Acetaminophen 650 mg 09/29/19 03:52 10/01/19 22:32 Tylenol PO 650 mg Q4H PRN Administration Headache/Fever/Mild Pain (1-3) Acetaminophen/Codeine Phosphate 1 tab 10/02/19 22:32 10/10/19 12:59 Tylenol #3 PO 1 tab Q6HR PRN Administration Pain Albuterol/Ipratropium 3 ml 09/29/19 06:30 10/10/19 14:00 Duoneb NEB 3 ml [id number] ESME Administration Aspirin 81 mg 09/29/19 09:00 10/10/19 08:37 Ecotrin PO 81 mg DAILY ESME Administration Calcium Carbonate 600 mg 09/30/19 09:00 10/10/19 08:37 Caltrate PO 600 mg DAILY ESME Administration Carvedilol 3.125 mg 09/29/19 21:00 10/10/19 08:37 Coreg PO 3.125 mg BID ESME Administration Cyanocobalamin 1,000 mcg 09/30/19 09:00 10/10/19 08:37 Vitamin B-12 PO 1,000 mcg DAILY ESME Administration Dextrose/Water 25 gm 09/29/19 19:42 10/08/19 04:08 Dextrose 50% SLOW IVP 25 gm PRN PRN Administration Hypoglycemia Docusate Sodium 100 mg 09/29/19 09:21 10/01/19 21:35 Colace PO 100 mg DAILY PRN Administration Constipation Etravirine 200 mg 09/29/19 18:00 10/10/19 08:37 Intelence PO 200 mg BID-PC ESME Administration Famotidine 20 mg 09/29/19 09:00 10/10/19 08:38 Pepcid SLOW IVP Not Given 0900 ESME Famotidine 20 mg 09/29/19 09:00 10/10/19 08:38 Pepcid PO 20 mg 0900 ESME Administration Fludrocortisone Acetate 0.1 mg 09/30/19 09:00 10/10/19 08:37 Florinef PO 0.1 mg DAILY ESME Administration Folic Acid 1 mg 09/30/19 09:00 10/10/19 08:37 Folvite PO 1 mg DAILY ESME Administration Gabapentin 300 mg 09/29/19 21:00 10/09/19 21:00 Neurontin PO 300 mg HS ESME Administration Hydralazine HCl 25 mg 09/29/19 21:00 10/10/19 08:38 Apresoline PO Not Given BID ESME Lidocaine 1 patch 09/30/19 09:00 10/10/19 08:31 Lidoderm 5% Patch TD 1 patch Q24HR ESME Administration Melatonin 9 mg 09/29/19 21:00 10/09/19 21:01 Melatonin PO 9 mg HS ESME Administration Miscellaneous Medication 1 each 09/29/19 21:00 10/09/19 21:01 Lidocaine Patch Removal TOP Not Given 2100 ESME Nortriptyline HCl 25 mg 09/29/19 21:00 10/09/19 21:01 Pamelor PO 25 mg HS ESME Administration Pantoprazole Sodium 40 mg 09/30/19 09:00 10/10/19 08:37 Protonix PO 40 mg DAILY ESME Administration Pravastatin Sodium 5 mg 09/29/19 21:00 10/09/19 21:02 Pravachol PO 5 mg HS ESME Administration Prednisone 40 mg 10/06/19 08:00 10/10/19 08:37 Prednisone PO 40 mg QAM-WM ESME Administration Raltegravir 400 mg 09/29/19 21:00 10/10/19 08:37 Isentress PO 400 mg BID ESME Administration Sevelamer Carbonate 800 mg 09/29/19 12:00 10/10/19 16:39 Renvela PO Not Given TID-WM ESME Sodium Chloride 10 ml 09/29/19 03:52 10/07/19 09:14 Flush - Normal Saline IVF 10 ml PRN PRN Administration Saline Flush Zidovudine 100 mg 09/29/19 14:00 10/10/19 12:56 Retrovir PO 100 mg Q8HR ESME Administration - Exam General Appearance: awake alert ENT: normocephalic atraumatic, no oropharyngeal lesions Neck: supple, symmetric Heart: RRR, no murmur, no gallops Respiratory: CTAB, no wheezes, no rales, no ronchi Gastrointestinal: soft, non-tender, non-distended, normal bowel sounds Hosp A/P (1) Aspiration pneumonia Code(s): J69.0 - PNEUMONITIS DUE TO INHALATION OF FOOD AND VOMIT Status: Acute Qualifiers: Laterality: bilateral Lung location: lower lobe of lung (2) Acute on chronic respiratory failure with hypoxemia Code(s): J96.21 - ACUTE AND CHRONIC RESPIRATORY FAILURE WITH HYPOXIA Status: Acute (3) ESRD (end stage renal disease) on dialysis Code(s): N18.6 - END STAGE RENAL DISEASE; Z99.2 - DEPENDENCE ON RENAL DIALYSIS Status: Chronic (4) DM (diabetes mellitus) Code(s): E11.9 - TYPE 2 DIABETES MELLITUS WITHOUT COMPLICATIONS Status: Chronic Qualifiers: Diabetes mellitus type: type 2 Diabetes mellitus chcf insulin use: without chcf use Diabetes mellitus complication status: with kidney complications Diabetes mellitus complication detail: with chronic kidney disease Chronic kidney disease stage: on chronic dialysis Qualified Code(s) : E11.22 - Type 2 diabetes mellitus with diabetic chronic kidney disease; N18.6 - End stage renal disease; Z99.2 - Dependence on renal dialysis (5) HIV (human immunodeficiency virus infection) Code(s): B20 - HUMAN IMMUNODEFICIENCY VIRUS [HIV] DISEASE Status: Chronic Qualifiers: HIV symptom status: unspecified Qualified Code(s): B20 - Human immunodeficiency virus [HIV] disease (6) Hepatitis C Code(s): B19.20 - UNSPECIFIED VIRAL HEPATITIS C WITHOUT HEPATIC COMA Status: Chronic Qualifiers: Viral hepatitis chronicity: chronic Hepatic coma status: without hepatic coma Qualified Code(s): B18.2 - Chronic viral hepatitis C - Plan -cotinue h/d as per sewage 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
[2019-10-10] MEDS: Melatonin 3 MG TAB PO SCH (21:01)
[2019-10-10] MEDS: Gabapentin 300 MG CAP PO SCH (21:01)
[2019-10-10] MEDS: Pravastatin Sodium 20 MG TAB PO SCH (21:01)
[2019-10-10] MEDS: Lidocaine Patch Removal 1 EACH TOP SCH (21:03)
[2019-10-10] MEDS: Nortriptyline HCl 25 MG CAP PO SCH (23:27)
[2019-10-11] MEDS ORDERED: Dextrose 50% Abboject 50 ML SYRINGE ONE (01:17)
[2019-10-11 01:52] LABS: Glucose POC Confirmation 102 mg/dl (80-115)
[2019-10-11] MEDS: Acetaminophen/Codeine 30-300mg Tablet PO PRN ×2 (06:52→13:18)
[2019-10-11] MEDS: Sevelamer Carbonate 800 MG TAB PO SCH ×2 (08:37→13:18)
[2019-10-11] MEDS: Calcium Carbonate 600 MG TAB PO SCH (08:37)
[2019-10-11] MEDS: Famotidine 20 MG TAB PO SCH (08:37)
[2019-10-11] MEDS: Raltegravir Potassium 400 MG TAB PO SCH (08:37)
[2019-10-11] MEDS: hydrALAZINE 25 MG TAB PO SCH (08:37)
[2019-10-11] MEDS: Fludrocortisone Acetate 0.1 MG TAB PO SCH (08:37)
[2019-10-11] MEDS: Folic Acid 1 MG TAB PO SCH (08:37)
[2019-10-11] MEDS: Aspirin 81 mg Enteric Coated Tablet PO SCH (08:38)
[2019-10-11] MEDS: predniSONE 20 MG TAB PO SCH (08:38)
[2019-10-11] MEDS: Carvedilol 3.125 MG TAB PO SCH (08:38)
[2019-10-11 08:41] VITALS: BP 116/76
[2019-10-11] MEDS: Cyanocobalamin (Vitamin B-12) 1,000 MCG TAB PO SCH (08:41)
[2019-10-11] MEDS: Famotidine/PF 20 mg/2ml Vial SLOW IVP SCH (08:41)
[2019-10-11] MEDS: Lidocaine 5% Patch TD SCH (09:30)
[2019-10-11 11:06] VITALS: TEMP 98.4
--- NOTE | 2019-10-11 16:54 | PRG ---
DATE OF SERVICE: 10/11/2019 SUBJECTIVE: The patient is noted with the following vital signs. OBJECTIVE: VITAL SIGNS: Afebrile, temperature 98.4, pulse 71, respiratory rate of O2 sat of 95%, blood pressure of 116/73. HEENT: Unremarkable. CARDIOVASCULAR SYSTEM: First and second heart sounds were heard. RESPIRATORY SYSTEM: Clear to auscultation. DIGESTIVE SYSTEM: Revealed a benign abdomen with positive bowel sounds. EXTREMITIES: No peripheral edema. access site. IMPRESSION: 1. End-stage renal disease, on hemodialysis. 2. Failure to thrive. 3. Respiratory failure. PLAN: 1. The patient to continue Monday, , and Monday schedule dialysis. 2. Further management to be dependent on the clinical course. Job ID: [id number]
--- NOTE | 2019-10-14 02:57 | PQF ---
WINSTON MATTSON PROSPERITY U MD [id number] CLINICAL DOCUMENTATION CLARIFICATION FORM: POST DISCHARGE Addendum to original discharge summary date: ____ Late entry note date: __ DATE: 10/14/2019 ATTN: Bruce Archuleta Please exercise your independent, professional judgment in responding to the clarification form. Clinical indicators are provided on the bottom of this form for your review Please check appropriate box(s): [ ] AIDS /HIV Disease Please specify associated HIV Disease condition(s) if appropriate: [ ] Sepsis [ ] Pneumonia (please specify type) [ ] Malnutrition; mild, moderate, severe [ ] Asymptomatic HIV infection status [ ] Non-specific serologic evidence of HIV [ ] Other diagnosis [ ] Unable to determine For continuity of documentation, please document condition throughout progress notes and discharge summary. Thank You. CLINICAL INDICATORS - SIGNS / SYMPTOMS / LABS HP 09/29 "64 years old male with HIV" HP 09/29 "HIV on HAART" HP 09/29 "CD4 count last admission was 95" HP 09/29 "HIV viral load was low" Consult 09/29 "longstanding HIV infection with adequate virologic control and last CD4 around 300" RISK FACTORS ED Notes 09/29-64 years old male ED Notes 09/29-HIV ED Notes 09/29-ESRD ED Notes 09/29-Chronic hepatitis C ED Notes 09/29-History of esophagus cancer ED Notes 09/29-Former smoker ED Notes 09/29-History of drug abuse HP 09/29-DM HP 09/29-Aspiration PNA PN 10/05-Moderate PCM PN 10/02-Sepsis TREATMENTS: HP 09/29-Oxygen HP 09/29-IVF PN 10/01-BIPAP MAR 08/29-Etravirine 200mg Oral MAR 02/16-Retrovir 100mg Oral (This form is maintained as a part of the permanent medical record) 2014 [employer], [employer]. All Rights Reserved [email or web address]
--- NOTE | 2019-10-14 03:00 | PQF ---
WINSTON MATTSON PROSPERITY U MD [id number] CLINICAL DOCUMENTATION CLARIFICATION FORM: POST DISCHARGE Addendum to original discharge summary date: ____ Late entry note date: __ DATE: 10/14/2019 ATTN: Bruce Archuleta Please exercise your independent, professional judgment in responding to the clarification form. Clinical indicators are provided on the bottom of this form for your review Diagnosis: SEPSIS Present on Admission (POA): [ ] Yes [ ] No [ ] Unable to determine Coding guidelines require hospitals to identify whether a diagnosis was present on admission (POA) or not. To accurately assign the appropriate POA indicator, this information must be clearly documented within the medical record. CLINICAL INDICATORS - SIGNS / SYMPTOMS / LABS PN 10/02 "Sepsis" PN 10/02 "Acute on chronic respiratory failure" PN 10/02 "Acute metabolic encephalopathy" Labs WBC: 09/29=5.7 09/30=4.6 10/01=5.8 10/02=5.3 10/05=5.1 Labs Anion Gap: 09/29=18 09/30=19 10/01=23,25 10/02=20 10/05=25 10/07=23 Vital Signs Pulse: 10/0881=532,104 10/1084=979 Vital Signs Respi: 10/07=28 10/08=22 10/09=21 10/10=24 10/11=22 RISK FACTORS: ED Notes 09/29-64 years old male ED Notes 09/29-HIV ED Notes 09/29-ESRD ED Notes 09/29-Chronic hepatitis C ED Notes 09/29-History of esophagus cancer ED Notes 09/29-Former smoker ED Notes 09/29-History of drug abuse HP 09/29-DM HP 09/29-Aspiration PNA PN 10/05-Moderate PCM TREATMENT: HP 09/29-Oxygen HP 09/29-IVF PN 10/01-BIPAP OCT 13-Vancomycin 1gm IV OCT 13-Merrem 1gm IV (This form is maintained as a part of the permanent medical record) 2014 [email or web address]. All Rights Reserved [email or web address]
--- NOTE | 2019-10-14 03:04 | PQF ---
WINSTON MATTSON PROSPERITY U MD [id number] CLINICAL DOCUMENTATION CLARIFICATION FORM: POST DISCHARGE Addendum to original discharge summary date: ____ Late entry note date: __ DATE: 10/14/2019 ATTN: Bruce Archuleta Please exercise your independent, professional judgment in responding to the clarification form. Clinical indicators are provided on the bottom of this form for your review Please check appropriate box(s): [ ] Acute pulmonary edema [ ] Chronic pulmonary edema [ ] Other diagnosis [ ] Unable to determine In addition, please specify: Present on Admission (POA): [ ] Yes [ ] No [ ] Unable to determine For continuity of documentation, please document condition throughout progress notes and discharge summary. Thank You. CLINICAL INDICATORS - SIGNS / SYMPTOMS / LABS PN 09/30 "Pulmonary edema" HP 09/29 "CC: Shortness of breath" HP 09/29 "Oxygen sat:46%" PN 09/29 "Pulmonary infiltrates" PN 10/02 "Volume overload" PN 10/02 "Acute on chronic respiratory failure" PN 10/02 "Acute metabolic encephalopathy" RISK FACTORS ED Notes 09/29-64 years old male ED Notes 09/29-HIV ED Notes 09/29-ESRD ED Notes 09/29-Chronic hepatitis C ED Notes 09/29-History of esophagus cancer ED Notes 09/29-Former smoker ED Notes 09/29-History of drug abuse HP 09/29-DM HP 09/29-Aspiration PNA PN 10/05-Moderate PCM TREATMENTS: HP 09/29-Oxygen HP 09/29-IVF PN 10/01-BIPAP Collected 10/10-Hemodialysis Collected 10/03-Chest Xray (This form is maintained as a part of the permanent medical record) 2014 [employer]. All Rights Reserved [email or web address]
--- NOTE | 2019-10-14 10:29 | DIS ---
DATE OF ADMISSION: 09/29/2019 DATE OF DISCHARGE: 10/11/2019 Mr. Brant Villeda is a 64-year-old male with past medical history of end-stage renal disease, diabetes, hypertension, HIV, on HAART treatment with swallow difficulties, who was admitted due to respiratory failure. The patient was recently admitted in the hospital and was treated for influenza pneumonitis. Upon discharge, the patient stayed a few days at home and started with respiratory stress for which he was sent here for evaluation. On chest x-ray, the patient with infiltrates as well as pulmonary edema, was initially placed on antibiotics to cover aspiration due to his history of difficulty swallowing. The patient also was started on hemodialysis treatment because there was a concern that the patient was on fluid overload. During the stay, the patient improved. ID as well as Nephrology were consulted. During the stay, the patient continued to improve. His saturations improved. Antibiotics were discontinued and the patient has been stable for the last couple of days waiting on home placement. Home placement was approved and the patient will be discharged home. The patient was oriented about his condition, treatment and followup plan, prefer to agree and understand. Medication review was done and the patient was discharged. Job ID: [id number]
== END 2019-10-11 15:44 | DRG 177 ==
LOC: ERS 00:53 → IMCU/EMU 03:19 → T4-A 10-03 21:25
PROVIDERS: ADMIT Internal Medicine; ATTEND Internal Medicine
PROC: 5A09557 Assistance with Respiratory Ventilation, Greater than 96 Consecutive Hours, Continuous Positive Airway Pressure (ICD-10-PCS; principal; 2019-09-29)
PROC: 5A1D70Z Performance of Urinary Filtration, Intermittent, Less than 6 Hours Per Day (ICD-10-PCS; 2019-10-10)
DX: J69.0 Pneumonitis due to inhalation of food and vomit (principal); J96.21 Acute and chronic respiratory failure with hypoxia; N18.6 End stage renal disease; G92 Toxic encephalopathy; I21.A1 Myocardial infarction type 2; A41.9 Sepsis, unspecified organism; I12.0 Hypertensive chronic kidney disease with stage 5 chronic kidney disease or end stage renal disease; E44.0 Moderate protein-calorie malnutrition; J81.1 Chronic pulmonary edema; J44.9 Chronic obstructive pulmonary disease, unspecified; Z21 Asymptomatic human immunodeficiency virus [HIV] infection status; E78.5 Hyperlipidemia, unspecified; K21.9 Gastro-esophageal reflux disease without esophagitis; Z96.652 Presence of left artificial knee joint; E11.22 Type 2 diabetes mellitus with diabetic chronic kidney disease; E11.51 Type 2 diabetes mellitus with diabetic peripheral angiopathy without gangrene; D63.1 Anemia in chronic kidney disease; G47.33 Obstructive sleep apnea (adult) (pediatric); E87.5 Hyperkalemia; E87.70 Fluid overload, unspecified; R62.7 Adult failure to thrive; B18.2 Chronic viral hepatitis C; Z99.2 Dependence on renal dialysis; Z85.01 Personal history of malignant neoplasm of esophagus; I25.2 Old myocardial infarction; Z90.49 Acquired absence of other specified parts of digestive tract; Z89.612 Acquired absence of left leg above knee; Z87.891 Personal history of nicotine dependence; Z88.1 Allergy status to other antibiotic agents; Z88.8 Allergy status to other drugs, medicaments and biological substances; Z79.82 Long term (current) use of aspirin; Z79.51 Long term (current) use of inhaled steroids; Z79.899 Other long term (current) drug therapy; Z79.52 Long term (current) use of systemic steroids; Z68.22 Body mass index [BMI] 22.0-22.9, adult
CPT/HCPCS: 36415; 36416; 71045; 71250; 80048; 80053; 80069; 80202; 82553; 82805; 82947; 83605; 84484; 85007; 85025; 85027; 87040; 90935; 93005; 94640; 94760; 96365; 99292; G0257; J2185; J2920; J3370; J3490; J7050; J7512; J7620